=== PATIENT | female | born 1940 | race Caucasian/White ===

== ENCOUNTER → 2018-02-16 15:18 | Outpatient (CLI) | payer MEDICARE, OTHER, SELFPAY ==
[2018-02-16 17:44] LABS: AST(SGOT) 27 U/L (15-37); Alanine Aminotransfer ALT/SGPT 32 U/L (13-56); Albumin, Serum 3.9 g/dL (3.2-5.0); Alkaline Phosphatase 46 U/L (45-117); Bilirubin, Direct 0.11 mg/dL (0.00-0.30); Cholesterol 129 mg/dL (200); Globulin 3.4 g/dL (2.2-4.2); High Density Lipoprotein 42 mg/dL; Protein, Total 7.3 g/dL (6.4-8.2); Triglycerides 70 mg/dL; Very Low Density Lipoprotein 14 mg/dL (5-40)
== END ==
PROVIDERS: Family Provider Internal Medicine; PCP Internal Medicine; Visit Provider Internal Medicine Cardiovascular Disease
DX: E78.5 Hyperlipidemia, unspecified (principal); Z79.899 Other long term (current) drug therapy
CPT/HCPCS: 36415; 80061; 80076

== ENCOUNTER → 2018-07-10 11:14 | Outpatient (CLI) | payer MEDICARE, OTHER, SELFPAY ==
[2018-07-10 12:00] LABS: AST(SGOT) 27 U/L (15-37); Alanine Aminotransfer ALT/SGPT 32 U/L (13-56); Albumin, Serum 3.9 g/dL (3.2-5.0); Alkaline Phosphatase 56 U/L (45-117); Bilirubin, Direct 0.18 mg/dL (0.00-0.30); Cholesterol 133 mg/dL (200); Globulin 3.7 g/dL (2.2-4.2); High Density Lipoprotein 45 mg/dL; Protein, Total 7.6 g/dL (6.4-8.2); Triglycerides 76 mg/dL; Very Low Density Lipoprotein 15 mg/dL (5-40)
--- OUTSIDE RECORDS SUMMARY | 2018-08-22 03:05 | XMS RPT_ITS ---
:1940 Author Organization OHIP Care Team Providers Name Role Phone JUAN J CARCAMO Referring Unavailable RACHAEL NUÑEZ (CHRISTIAN SCIENCE PRACTITIONER) Attending Unavailable JUAN J CARCAMO Attending Unavailable JUAN J CARCAMO Referring Unavailable BAMBI, CADY (CHRISTIAN SCIENCE PRACTITIONER) Referring Unavailable KRUPA MCCARTY (PA) Attending Unavailable KRUPA MCCARTY (PA) Referring Unavailable JUAN J CARCAMO Referring Unavailable JUAN J CARCAMO Attending Unavailable JUAN J CARCAMO H Referring Unavailable JUAN J CARCAMO H Referring Unavailable Christiano, Martin Attending Unavailable Juan J Carcamo Referring Unavailable Juan J Carcamo Primary Care Unavailable Christiano, Martin Attending Unavailable Christiano, Winfield Referring Unavailable CarcamoJuan J ivory Primary Care Unavailable Christiano, Martin Attending Unavailable Christiano, Winfield Referring Unavailable Juan J Carcamo Primary Care Unavailable Christiano, Martin Attending Unavailable Juan J Carcamo Referring Unavailable PROBLEMS PROBLEMS DATE TYPE CONDITION / CODE ATTENDING STATUS SOURCE Unknown I10 - Essential (primary) Christiano, Martin Active [facility] hypertension / Community I10(ICD-10) Hospital Repository Unknown E78.5 - Hyperlipidemia, Christiano, Martin Active [facility] unspecified / Community E78.5(ICD-10) Hospital Repository Unknown Z95.5 - Presence of Christiano, Winfield Active [facility] 8 coronary angioplasty Community implant and graft / Hospital Z95.5(ICD-10) Repository Active Encounter for screening [place] [address] mammogram for malignant Clinic Main neoplasm of breast / [place] Z12.31(ICD-10) Repository Unknown 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, Winfield Active [facility] 8 heart disease of [place] Community coronary artery without Hospital angina pectoris / Repository I25.10(ICD-10) Unknown E78.00 - Pure Christiano, Winfield Active [facility] 8 hypercholesterolemia, Community unspecified / Hospital E78.00(ICD-10) Repository Unknown E78.0 - Pure Christiano, Martin Active [facility] hypercholesterolemia / Community E78.0(ICD-10) Hospital Repository Active Unknown / UNK(Unknown) LUL, [facility] 8 KRUPA (PA) [facility] Main [place] Repository Active Dysuria / R30.0(ICD-10) Active [address] Main [place] Repository Active Deficiency of other Active [facility] specified [facility] group Clinic Main vitamins / E53.8(ICD-10) [place] Repository Active Essential (primary) Active [facility] hypertension / Clinic Main I10(ICD-10) [place] Repository Active Vitamin D deficiency, NA Active [facility] 8 unspecified / Clinic Main E55.9(ICD-10) [place] Repository Active Other alf (current) [facility] 8 drug therapy / Clinic Main Z79.899(ICD-10) [place] Repository PROCEDURES PROCEDURES No Procedure Records FoundRESULTS RESULTS CARDIOLOGY VISIT Observed: 07/12/2018 Status: F Source: [place] REPORT 1:40 PM [facility] HOSPITAL REPOSITORY [facility] [address] [place] [address] OFFICE VISIT Date of Service: 07/12/18 MR#: [id number] Acct: [id number] Name: BREANNA PHELPS Rep #: [id number] : 1940 Provider: Martin Alvarado MD Age/Sex: 77/F Location: [facility] Status: Signed HPI HPI Chief Complaint: Follow-up visit Details: BREANNA PHELPS, is a 77 F who presents to the office today for a follow-up visit. She is a lady with a history of non-ST elevation myocardial infarction in 2011. 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 She has been doing well since denying any chest pain or shortness of breath or paroxysmal nocturnal dyspnea or pedal edema she occasionally has some palpitations. She has had no presyncope or syncope. She has been compliant with all her other medications. Her physical exam today demonstrates clear lung cespedes regular rate and rhythm and no evidence of pedal edema. Intake Vital Signs07/12/18 Height 5 ft 3 in 07/12/18 Weight: 180 lb 07/12/18 Body Mass Index (BMI) 31.8 07/12/18 Blood Pressure 128/82 H 07/12/18 Blood Pressure Location Lt brachial Intake Visit Reasons: 1 Y FU [place] Folder Required: No Accompanied by: Is patient in pain?: No Allergies No Known Allergies Allergy (Unverified 07/12/18 13:18) Medications clopidogrel 75 mg tablet 75 mg PO QDAY #90 tab 02/09/18 [Rx Confirmed 07/12/18] alendronate 70 mg tablet 70 mg PO QWEEK 04/25/18 [History Confirmed 07/12/18] aspirin 81 mg tablet,delayed release 81 mg PO DAILY 04/25/18 [History Confirmed 07/12/18] atorvastatin 40 mg tablet 40 mg PO QHS #90 tab 04/25/18 [Rx Confirmed 07/12/18] cholecalciferol (vitamin D3) 50,000 unit capsule 50,000 unit PO QWEEK 04/25/18 [History Confirmed 07/12/18] oxybutynin chloride ER 5 mg tablet,extended release 24 hr 5 mg PO DAILY 04/25/18 [History Confirmed 07/12/18] metoprolol succinate ER 50 mg tablet,extended release 24 hr 50 mg PO DAILY #90 tab 07/07/18 [Rx Confirmed 07/12/18] [facility] Medical History Essential (primary) hypertension (Chronic) Hyperlipidemia (Chronic) Surgical History History of coronary artery stent placement (Resolved) Family History Mother CAD (coronary artery disease) Myocardial infarction Brother CAD (coronary artery disease) Myocardial infarction Brother Cancer Sister Heart disease Social History Smoking Status: Never smoker ROS Const Const: Negative for fatigue, weakness, night sweats, excessive sweating, frequent falls, headache(s) or daytime sleepiness Eyes Eyes: Negative for loss of peripheral vision, transient loss of vision, blind spots, double vision or blurry vision ENT ENT: Negative for headache(s), dizziness, balance problems, Nosebleed/epistaxis, tongue swelling or lip swelling Cardio Chest Pain: No Palpitations: No Edema: None Muscle aches with walking: None Resp Respiratory: Negative for SOB at rest, SOB orthopnea\SOB lying down, Cough, paroxysmal nocturnal dyspnea or SOB with activity GI GI: Negative nausea, vomiting, heartburn, black,tarry stools or bright, red blood in stools : Negative for hematuria Musc Musc: Negative for balance problems, muscle aches/ myalgia, muscle weakness or joint pain Skin Skin: Negative non-healing lesions, unusual bruising or rash Neuro Neuro: Negative for weakness, frequent falls, headache(s), double vision, dizziness, lightheadedness, orthostatic symptoms, blurry vision or lack of coordination Lazaro Hematologic/Lymphatic: Negative for easy bruising or easy bleeding Endo Endo: Negative for fatigue, excessive sweating, cold intolerance, heat intolerance, increased thirst/drinking or hair loss Psych Psych: Negative for anxiety or depression Allergy Allergy/Immunology: Negative for throat swelling, Negative for tongue swelling, Negative for hives, Negative for rash, Negative for lip swelling Cardiology Exam Const Appearance: cooperative, healthy appearing, well developed, well groomed and no acute distress Nutritional Appearance: well nourished and average body habitus Orientation: alert, awake and oriented x3 Head Head: normal to inspection, normocephalic and atraumatic Ears: hearing grossly normal bilaterally and external ears normal Nose: external nose normal, nasal mucous membranes and turbinates normal, nares normal, septum normal, no nasal discharge Face and Sinus: face symmetric Mouth: oral mucosae normal, tongue normal, oropharynx normal and moist mucous membranes Teeth and gingiva: dentition normal Throat: posterior oropharynx normal, tonsils normal and uvula midline Eyes General: appearance normal, both eyes and all related structures Eyelids: eyelids normal Conjunctivae: conjunctivae normal Pupils: PERRL, normal by confrontation and accommodation normal EOM: EOM intact bilaterally Neck Neck: normal visual inspection, trachea midline and no JVD JVD: +5 Carotids: normal carotid upstroke and bounding pulses Chest Chest inspection: normal inspection of the chest, symmetric chest movement and normal respiratory effort Auscultation: Bilateral: Clear to Auscultation Cardio Palpation: normal PMI Rate: regular rate Rhythm: regular rhythm Heart sounds: S1 normal, S2 normal and normal, physiologic split S2; negative rub, gallop or murmur GI GI: normal to inspection, soft, no hepatosplenomegaly and bowel sounds present Neuro General: alert, awake, oriented x3, no focal sensory deficit, gait normal and moves all extremities Skin Skin: no rashes or lesions noted Extremities Pulses: Normal: Right Femoral Pulse, Left Femoral Pulse, Right Dorsalis Pedis Pulse, Left Dorsalis Pedis Pulse, Right Posterior Tibial Pulse, Left Posterior Tibial Pulse, Right Radial Pulse, Left Radial Pulse Lower Extremity Edema: None: Bilateral Musculoskel Musculoskeletal: No joint tenderness Psych Psychological: normal affect Assessment AND Plan 1. History of coronary artery stent placement Z95.5 11/22/11 [facility] and PTCA and stenting of mid LAD Plan She overall appears to be doing quite well. I did suggest to her that perhaps a stress test would be an ideal way to evaluate her left anterior descending artery however at this time she wants to continue to observing it medically. I do not have any issues or concerns about the above. 2. Essential (primary) hypertension I10 Plan Her blood pressure appears to be under excellent control at this particular time. We will continue observing her closely. 3. Hyperlipidemia E78.5 Plan She does have a history of hyperlipidemia and her most recent lipid profile demonstrates a total cholesterol 133, LDL of 73, and HDL of 45. Thank you for allowing me to participate in the care of your patient. 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) Coding Level of Care Code Off vis,est,level 3 Diagnoses History of coronary artery stent placement Z95.5 Essential (primary) hypertension I10 Hyperlipidemia E78.5 Coding Level of Care Code Off vis,est,level 3 Diagnoses History of coronary artery stent placement Z95.5 Essential (primary) hypertension I10 Hyperlipidemia E78.5 07/12/18 1340 <Electronically signed by Martin Alvarado MD> Date Martin Alvarado MD Cosigner Signature: Date (if applicable) CC: Juan J Carcamo MD LIVER PROFILE Collected: 07/10/2018 Status: F Source: [place] 11:29 AM [facility] [place] TYPE CODE TESTS RESULT OUT OF RANGE REFERENCE UNITS LAB L501.1500 6.4-8.2 g/dL Normal T PROT 7.6 LAB L501.1800 3.2-5.0 g/dL Normal ALB 3.9 LAB L501.1950 2.2-4.2 g/dL Normal GLOB 3.7 LAB L501.4100 15-37 U/L Normal AST 27 LAB L501.4305 45-117 U/L Normal ALK P 56 LAB L501.4405 13-56 U/L Normal ALT 32 LAB L501.4600 0.20-1.00 mg/dL Normal T BILI 0.70 LAB L501.4700 0.00-0.30 mg/dL Normal D BILI 0.18 Performed By: #### L500.3400, L500.4100 #### [facility] [address] [place], [address] LIPID PROFILE Collected: 07/10/2018 Status: F Source: [place] 11:29 AM [facility] [place] TYPE CODE TESTS RESULT OUT OF RANGE REFERENCE UNITS LAB L501.4900 200 mg/dL Normal CHOL 133 Result Comment: <200 mg/dL Desirable 200-240 mg/dL Borderline >240 mg/dL High Risk LAB L501.5000 mg/dL Normal TRIG 76 Result Comment: The drugs N-Acetylcysteine and Metamizole may falsely depress this assay. Serum Triglycerides Reference Interval Normal <150 mg/dL Borderline high 150 - 199 mg/dL High 200 - 499 mg/dL Very High > or = 500 mg/dL LAB L501.6400 mg/dL Normal HDL 45 Result Comment: The drugs N-Acetylcysteine and Metamizole may falsely depress this assay. Reference Range HDL <40 mg/dL Low HDL Cholesterol HDL >or= 60 mg/dL High HDL Cholesterol LAB L501.6500 0-130 mg/dL Normal LDL 73 LAB L501.6600 5-40 mg/dL Normal VLDL 15 Performed By: #### L500.3400, L500.4100 #### [facility] [address] [place], [address] LIVER PROFILE Collected: 02/16/2018 Status: F Source: [place] 3:59 PM [facility] [place] TYPE CODE TESTS RESULT OUT OF RANGE REFERENCE UNITS LAB L501.1500 6.4-8.2 g/dL Normal T PROT 7.3 LAB L501.1800 3.2-5.0 g/dL Normal ALB 3.9 LAB L501.1950 2.2-4.2 g/dL Normal GLOB 3.4 LAB L501.4100 15-37 U/L Normal AST 27 LAB L501.4305 45-117 U/L Normal ALK P 46 LAB L501.4405 13-56 U/L Normal ALT 32 LAB L501.4600 0.20-1.00 mg/dL Normal T BILI 0.60 LAB L501.4700 0.00-0.30 mg/dL Normal D BILI 0.11 Performed By: #### L500.3400, L500.4100 #### [facility] [address] [place], [address] LIPID PROFILE Collected: 02/16/2018 Status: F Source: [place] 3:59 PM [facility] [place] TYPE CODE TESTS RESULT OUT OF RANGE REFERENCE UNITS LAB L501.4900 200 mg/dL Normal CHOL 129 Result Comment: <200 mg/dL Desirable 200-240 mg/dL Borderline >240 mg/dL High Risk LAB L501.5000 mg/dL Normal TRIG 70 Result Comment: The drugs N-Acetylcysteine and Metamizole may falsely depress this assay. Serum Triglycerides Reference Interval Normal <150 mg/dL Borderline high 150 - 199 mg/dL High 200 - 499 mg/dL Very High > or = 500 mg/dL LAB L501.6400 mg/dL Normal HDL 42 Result Comment: The drugs N-Acetylcysteine and Metamizole may falsely depress this assay. Reference Range HDL <40 mg/dL Low HDL Cholesterol HDL >or= 60 mg/dL High HDL Cholesterol LAB L501.6500 0-130 mg/dL Normal LDL 73 LAB L501.6600 5-40 mg/dL Normal VLDL 14 Performed By: #### L500.3400, L500.4100 #### [facility] [address] [place], [address] CNCO Observed: 02/16/2018 Status: COMPLETED Source: [place] 1:50 PM [facility] REPOSITORY HNO ID: [id number] Author: Mammography Coordinator Service: (none) Author Type: Physician Type: Letter Filed: 02/19/2018 11:33 PM Note Text: February 16, 2018 PID: [id number] Breanna Phelps [address] [place] [address] Dear Ms. Phelps, We are pleased to inform you that the results of your recent breast imaging exam on 02/16/2018 are normal. Early detection of cancer is very important. We also understand recommendations regarding breast cancer screening are controversial. Please discuss with your primary care provider which strategy is best for you and whether a mammogram is right for you. Your imaging studies and report will be kept on file at [facility] as part of your permanent medical record and are available for your continuing care. Thank you for allowing us to help in meeting your health care needs. Sincerely, Dr. Leslie Interpreting Radiologist [facility] (Normal over 40) [facility] SCREENING Observed: 02/16/2018 Status: F Source: [place] 1:43 PM [facility] [place] REPOSITORY * * *Final Report* * * DATE OF EXAM: Feb 16 2018 1:43PM [facility] 0581 - [facility] SCREENING / PROCEDURE REASON: Encounter for screening mammogram for malignant neoplasm of breast * * * * Physician Interpretation * * * * RESULT: #[id number] - [facility] SCREENING BILATERAL DIGITAL SCREENING MAMMOGRAM WITH CAD: 02/16/2018 HISTORY: Encounter For Screening Mammogram For Malignant Neoplasm Of Breast /priors available for comparison. RESULT: TECHNIQUE: The study was acquired using full field digital technology and interpreted from soft copy. Current study was also evaluated with a Computer Aided Detection (CAD). Comparison is made to exams dated: 02/06/2017 mammogram, 02/04/2016 mammogram, and 02/02/2015 mammogram - [facility]. There are scattered fibroglandular elements in both breasts. No significant masses, calcifications, or other findings are seen in either breast. There has been no significant interval change. IMPRESSION: NEGATIVE There is no mammographic evidence of malignancy. A 1 year screening mammogram is recommended. The exam was reviewed by a staff physician. Aiyana Jose M.D., mc, jd/elizabeth:02/16/2018 13:50:24 Adult Ministries Director: Leidy ABREU)(Conner), [facility] letter sent: Normal over 40 Mammogram BI-RADS: 1 Negative Community Service Officer: Elizabeth Transcribe Date/Time: Feb 16 2018 1:22P Dictated by: ULISSES JOSE MD This examination was interpreted and the report reviewed and electronically signed by: AIYANA MCFADDEN MD on Feb 16 2018 1:50PM EST [id number] PROCEDURE Observed: 02/16/2018 Status: COMPLETED Source: [place] 1:21 PM [facility] REPOSITORY O ID: [id number] Author: Lena Mata (Rt) Service: (none) Author Type: Spectacle Truer Type: Procedures Filed: 02/16/2018 1:22 PM Note Text: Radiology Service Progress Note PATIENT NAME: Breanna Phelps DATE OF SERVICE: February 16, 2018 TIME: 1:21 PM PATIENT IDENTITY VERIFICATION COMPLETED USING TWO (2) METHODS: Patient confirmed name verbally and Date of . PATIENT GENDER DATA: Female. status: : No status: NO. PATIENT RELEVANT IMPLANT DATA REVIEWED: Not Applicable RADIOLOGY DEPARTMENT: [facility] IV DATA: Not applicable SIGNED BY: RT Esperanza February 16, 2018 1:21 PM PROGRESS Observed: 02/07/2018 Status: COMPLETED Source: [place] 4:29 PM [facility] [place] REPOSITORY HNO ID: [id number] Author: Juan J Carcamo Service: (none) Author Type: Physician Type: Progress Notes Filed: 02/07/2018 4:35 PM Note Text: This note was created using HealthTeacher / GoNoodle. Subjective Breanna Phelps is a 77 year old female here for follow up. She was doing okay. Urge incontinence was stable. Medication was tolerated. Her hypertension was controlled. Osteoporosis was treated as reviewed. She stopped medications for acid reflux with mild increase in symptoms and atypical chest pains. 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 Review of Systems Constitutional: Negative. Respiratory: Negative. Cardiovascular: Positive for chest pain. Negative for palpitations and leg swelling. Atypical CP. Gastrointestinal: Negative. Genitourinary: Positive for urgency. ACTIVE PROBLEM LIST Lumbago Other Hyperlipidemia Essential Hypertension, Benign Asthma Osteoporosis Osteoarthrosis Involving Lower Leg Vitamin D Deficiency Cad (Coronary Artery Disease) B12 Deficiency Gastroesophageal Reflux Disease Without Esophagitis Small Fiber Neuropathy (Hcc) Primary Generalized (Osteo)arthritis Chronic Nonallergic Rhinitis Urge Incontinence Dry Mouth Dizziness and Giddiness Obesity, Class I, Bmi 30-34.9 Current Outpatient Prescriptions: Multivitamin capsule Take 1 capsule by mouth once daily. alendronate (FOSAMAX) 70 mg tablet Take 1 tablet by mouth once each week. Take with a full glass of water, on an empty stomach; do NOT lie down for 30minutes. oxybutynin (DITROPAN) 5 mg tablet Take 1 tablet by mouth four times daily. Cholecalciferol, Vitamin D3, 5,000 unit cap Take 1 capsule by mouth once daily. atorvastatin (LIPITOR) 80 mg tablet Take 0.5 tablets by mouth daily at bedtime. For cholesterol. mometasone (ELOCON) 0.1 % cream Apply 1 application to affected area once daily as needed (arms and legs). albuterol HFA (VENTOLIN HFA) 90 mcg/actuation inhaler Inhale 2 Puffs as instructed every 4 hours as needed for Wheezing/Shortness of Breath. metoprolol succinate XL, long acting, (TOPROL XL) 100 mg ORAL Tb24 Take 1 tablet by mouth once daily. clopidogrel 75 mg ORAL tablet Take 1 tablet by mouth once daily. Aspirin 81 mg ORAL Tab Take 1 tablet by mouth once daily. Take with food. nitroglycerin sublingual 0.4 mg SUBLINGUAL SL tablet Dissolve 1 tablet under the tongue every 5 minutes as needed for Chest Pain. No current facility-administered medications for this visit. Objective BP 122/76 (BP Site: Right Arm, BP Position: Sitting, BP Cuff Size: Regular Adult) Pulse 64 Temp 36.7 ?C (98.1 ?F) (Left Tympanic) Resp 12 Wt 77.1 kg (170 lb) BMI 31.60 kg/m? Physical Exam Cardiovascular: Normal rate, regular rhythm and normal heart sounds. Exam reveals no gallop. No murmur heard. Pulmonary/Chest: Breath sounds normal. She has no wheezes. She has no rales. Musculoskeletal: She exhibits no edema. Neurological: She is alert. Ambulatory with cane. Assessment and Plan 1. Essential hypertension, benign - ICD9: 401.1, ICD10: I10 (primary diagnosis) - good control 2. Osteoporosis, unspecified osteoporosis type, unspecified pathological fracture presence - ICD9: 733.00, ICD10: M81.0 - continue tx with alendronate (Fosamax) till 2020. - Reviewed the need for Calcium and Vitamin D supplements and weight bearing exercise as tolerated 3. Gastroesophageal reflux disease without esophagitis - ICD9: 530.81, ICD10: K21.9 Controlled off medication. 4. Urge incontinence - ICD9: 788.31, ICD10: N39.41 Stable. 5. Encounter for screening mammogram for breast cancer - ICD9: V76.12, ICD10: Z12.31 - [facility] SCREENING 6. Obesity, Class I, BMI 30-34.9 - ICD9: 278.00, ICD10: E66.9 Weight loss. Juan J Carcamo MD CNOV Observed: 02/07/2018 Status: COMPLETED Source: [place] 3:40 PM [facility] REPOSITORY Office Visit (INTMWS) BREANNA PHELPS ([id number]) 1940 F Date Time Provider Department 02/07/18 3:40 PM JUAN J CARCAMO INTFREDYD During your visit today, we recorded the following information about you: Temperature Pulse Respiration Blood pressure 98.1 degrees 64/minute 12/minute 122/76 Weight 77.1 kg Juan J Carcamo MD 02/07/2018 4:25 PM Signed Recombinant shingles vaccine (Shingrix) is recommended; 2 doses 2-6 months apart. Please read information, check with your insurance, and call to schedule vaccination. You may also be directed to your local pharmacy. Juan J Carcamo MD 02/07/2018 4:35 PM Signed This note was created using HealthTeacher / GoNoodle. Subjective Breanna Phelps is a 77 year old female here for follow up. She was doing okay. Urge incontinence was stable. Medication was tolerated. Her hypertension was controlled. Osteoporosis was treated as reviewed. She stopped medications for acid reflux with mild increase in symptoms and atypical chest pains. 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 Review of Systems Constitutional: Negative. Respiratory: Negative. Cardiovascular: Positive for chest pain. Negative for palpitations and leg swelling. Atypical CP. Gastrointestinal: Negative. Genitourinary: Positive for urgency. ACTIVE PROBLEM LIST Lumbago Other Hyperlipidemia Essential Hypertension, Benign Asthma Osteoporosis Osteoarthrosis Involving Lower Leg Vitamin D Deficiency Cad (Coronary Artery Disease) B12 Deficiency Gastroesophageal Reflux Disease Without Esophagitis Small Fiber Neuropathy (Hcc) Primary Generalized (Osteo)arthritis Chronic Nonallergic Rhinitis Urge Incontinence Dry Mouth Dizziness and Giddiness Obesity, Class I, Bmi 30-34.9 Current Outpatient Prescriptions: Multivitamin capsule Take 1 capsule by mouth once daily. alendronate (FOSAMAX) 70 mg tablet Take 1 tablet by mouth once each week. Take with a full glass of water, on an empty stomach; do NOT lie down for 30minutes. oxybutynin (DITROPAN) 5 mg tablet Take 1 tablet by mouth four times daily. Cholecalciferol, Vitamin D3, 5,000 unit cap Take 1 capsule by mouth once daily. atorvastatin (LIPITOR) 80 mg tablet Take 0.5 tablets by mouth daily at bedtime. For cholesterol. mometasone (ELOCON) 0.1 % cream Apply 1 application to affected area once daily as needed (arms and legs). albuterol HFA (VENTOLIN HFA) 90 mcg/actuation inhaler Inhale 2 Puffs as instructed every 4 hours as needed for Wheezing/Shortness of Breath. metoprolol succinate XL, long acting, (TOPROL XL) 100 mg ORAL Tb24 Take 1 tablet by mouth once daily. clopidogrel 75 mg ORAL tablet Take 1 tablet by mouth once daily. Aspirin 81 mg ORAL Tab Take 1 tablet by mouth once daily. Take with food. nitroglycerin sublingual 0.4 mg SUBLINGUAL SL tablet Dissolve 1 tablet under the tongue every 5 minutes as needed for Chest Pain. No current facility-administered medications for this visit. Objective BP 122/76 (BP Site: Right Arm, BP Position: Sitting, BP Cuff Size: Regular Adult) Pulse 64 Temp 36.7 ?C (98.1 ?F) (Left Tympanic) Resp 12 Wt 77.1 kg (170 lb) BMI 31.60 kg/m? Physical Exam Cardiovascular: Normal rate, regular rhythm and normal heart sounds. Exam reveals no gallop. No murmur heard. Pulmonary/Chest: Breath sounds normal. She has no wheezes. She has no rales. Musculoskeletal: She exhibits no edema. Neurological: She is alert. Ambulatory with cane. Assessment and Plan 1. Essential hypertension, benign - ICD9: 401.1, ICD10: I10 (primary diagnosis) - good control 2. Osteoporosis, unspecified osteoporosis type, unspecified pathological fracture presence - ICD9: 733.00, ICD10: M81.0 - continue tx with alendronate (Fosamax) till 2020. - Reviewed the need for Calcium and Vitamin D supplements and weight bearing exercise as tolerated 3. Gastroesophageal reflux disease without esophagitis - ICD9: 530.81, ICD10: K21.9 Controlled off medication. 4. Urge incontinence - ICD9: 788.31, ICD10: N39.41 Stable. 5. Encounter for screening mammogram for breast cancer - ICD9: V76.12, ICD10: Z12.31 - [facility] SCREENING 6. Obesity, Class I, BMI 30-34.9 - ICD9: 278.00, ICD10: E66.9 Weight loss. Juan J Carcamo MD Referring Provider: JUAN J CARCAMO [[id number]] Allergies As of Date: 02/07/2018 (No Known Allergies) Date Reviewed: 02/07/2018 Reviewed by: Monie Ugalde LPN - Fully Assessed Reason for Visit: Medication Follow-up [270] Primary Visit Diagnosis:Essential hypertension, benign [I10] Other Visit Diagnoses:Osteoporosis, unspecified osteoporosis type, unspecified pathological fracture presence [M81.0] Gastroesophageal reflux disease without esophagitis [K21.9] Urge incontinence [N39.41] Encounter for screening mammogram for breast cancer [Z12.31] Obesity, Class I, BMI 30-34.9 [E66.9] Order(s):[facility] SCREENING [[id number]] Order #: [id number] FUTURE Prescriptions as of 02/07/2018 Sig: MULTIVITAMIN CAPSULE Take 1 capsule by mouth once * ALENDRONATE 70 MG TABLET Take 1 tablet by mouth once e* OXYBUTYNIN CHLORIDE 5 MG TABL* Take 1 tablet by mouth four t* CHOLECALCIFEROL (VITAMIN D3) * Take 1 capsule by mouth once * ATORVASTATIN 80 MG TABLET Take 0.5 tablets by mouth robby* MOMETASONE 0.1 % TOPICAL CREAM Apply 1 application to affect* ALBUTEROL SULFATE HFA 90 MCG/* Inhale 2 Puffs as instructed * METOPROLOL SUCCINATE ER 100 M* Take 1 tablet by mouth once d* CLOPIDOGREL 75 MG TABLET Take 1 tablet by mouth once d* ASPIRIN 81 MG TABLET Take 1 tablet by mouth once d* NITROGLYCERIN 0.4 MG SUBLINGU* Dissolve 1 tablet under the t* Problem List As Of Date 02/07/2018 Noted Resolved LUMBAGO [M54.5] Impaired fasting glucose [R73.01] 09/29/2015 Obesity, unspecified [E66.9] 02/07/2018 Other hyperlipidemia [E78.4] BENIGN HYPERTENSION [I10] Asthma [J45.909] INVALID FOR* Osteoporosis [M81.0] INVALID FOR* More... SPRAIN OF NECK [S13.9XXA] INVALID FOR*06/24/2008 SPRAIN SHOULDER/ARM NOS [S43.409A, S46.919A] INVALID FOR*06/24/2008 Sprain and strain of unspecified site of knee a*INVALID FOR*09/14/2012 CONTUSION NOS [T14.8XXA] INVALID FOR*06/24/2008 Osteoarthrosis involving lower leg [M17.10] INVALID FOR* Derangement of meniscus, not elsewhere classifi*INVALID FOR*09/14/2012 Vitamin D deficiency [E55.9] INVALID FOR* Skin infection [L08.9] INVALID FOR*09/14/2012 Vertigo [R42] INVALID FOR*09/14/2012 CAD (coronary artery disease) [I25.10] INVALID FOR* More... B12 deficiency [E53.8] INVALID FOR* Special screening for malignant neoplasms, colo*INVALID FOR*09/14/2012 Diverticulosis of colon (without mention of hem*INVALID FOR*09/14/2012 Gastroesophageal reflux disease without esophag*INVALID FOR* Diaphragmatic hernia without mention of obstruc*INVALID FOR*09/14/2012 Small fiber neuropathy [G62.9] INVALID FOR* YAMILETH (obstructive sleep apnea) [G47.33] INVALID FOR*03/17/2014 More... Pain in limb [M79.609] INVALID FOR*09/14/2012 Cervical spondylosis with radiculopathy [M47.22]INVALID FOR*09/29/2015 Primary generalized (osteo)arthritis [M15.0] INVALID FOR* More... Hypersomnia [G47.10] INVALID FOR*09/29/2015 More... Chronic nonallergic rhinitis [J31.0] INVALID FOR* Urge incontinence [N39.41] INVALID FOR* Dry mouth [R68.2] INVALID FOR* Dizziness and giddiness [R42] INVALID FOR* Obesity, Class I, BMI 30-34.9 [E66.9] INVALID FOR* Other instructions from your clinician: Recombinant shingles vaccine (Shingrix) is recommended; 2 doses 2-6 months apart. Please read information, check with your insurance, and call to schedule vaccination. You may also be directed to your local pharmacy. Medications Discontinued During This Encounter Ranitidine HCl 150 mg capsule 60 c* 12 06/17/2016 02/07/2018 Route: ORAL Sig: Take 1 capsule by mouth twice daily as needed for GI Upset. Patient not taking: Reported on 02/07/2018 Disc: Discontinued by Patient sod byxpr-tpmyoa-ajxbue bottle (MEG* 0 09/29/2015 02/07/2018 Class: OTC Sig: Use sinus irrigation as needed. Patient not taking: Reported on 02/07/2018 Disc: Reason for discontinue is not on file. Disposition: Return in about 7 months (around 09/09/2018). Follow-up and Disposition History Recorded Encounter Status:Closed by JUAN J CARCAMO MD on 02/07/18 HEMOGLOBIN A1C Collected: 02/06/2018 Status: F Source: [place] 12:28 PM [facility] REPOSITORY TYPE CODE TESTS RESULT OUT OF REFERENCE UNITS RANGE LAB HGBA1C 4.3-5.6 % Hemoglobin A1c 5.3 LAB HBA0 mg/dL Est. Average Glucose 105 Result Comment: eAG: (Estimated average glucose) is a calculated value from HgbA1c and is claims representative of the average blood glucose level in the last 2-3 month period. Performed By: #### HBA1C #### [facility] [address] [place], [place] [address] CARDIOLOGY VISIT Observed: 01/25/2018 Status: F Source: [place] RE[place] 8:55 PM [facility] [address] [place] [address] OFFICE VISIT Date of Service: 01/18/18 MR#: [id number] Acct: [id number] Name: BREANNA PHELPS Rep #: [id number] : 1940 Provider: Martin Alvarado MD Age/Sex: 77/F Location: [facility] Status: Signed HPI HPI Chief Complaint: Follow-up visit Details: BREANNA PHELPS, is a 77 F who presents to the office today for a follow-up visit. She is a lady with a history of known coronary artery disease status post non-ST elevation myocardial infarction in 2011 heart catheterization at that time demonstrated an 80% stenosis of the left anterior descending artery for which she had angioplastied and stented. She also has a history of hypertension and hyperlipidemia. She has been compliant with her medications she does have mild shortness of breath with activity especially when she is ambulating uphill. She continues to use a cane. She has been compliant with her medications she has had no neck arm or jaw discomfort suggest angina no dizziness or diaphoresis no near syncope or syncope. Her physical exam today demonstrates clear lung cespedes regular rate and rhythm and no pedal edema her blood pressure is under excellent control. Intake Intake Visit Reasons: 6 M FU (we moved from -29) [facility] Social History Smoking Status: Never smoker ROS Const Const: Negative for fatigue, weakness, body ache, fever(s), headache(s), chills, frequent falls, night sweats, daytime sleepiness, difficulty sleeping, excessive sweating, weight gain, weight loss, increased appetite, poor appetite, anorexia or other Eyes Eyes: Negative for blind spots, loss of peripheral vision, transient loss of vision, blurry vision, change in vision, double vision, floaters, tunnel vision or other ENT ENT: Negative for headache(s) Cardio Chest Pain: No Resp Respiratory: Positive for SOB with activity GI GI: Negative nausea, vomiting, heartburn, constipation, belching, bloating, cramping, vomiting blood/hematemesis, bright, red blood in stools, black,tarry stools, loose stools, Difficulty Swallowing or other Skin Skin: Negative redness, non-healing lesions, rash, unusual bruising, skin ulcer, wounds, jaundice or other Neuro Neuro: Negative for weakness, headache(s), frequent falls, blurry vision or double vision Endo Endo: Negative for fatigue or excessive sweating Allergy Allergy/Immunology: Negative for rash Cardiology Exam Const Appearance: cooperative, healthy appearing, well developed, well groomed and no acute distress Nutritional Appearance: well nourished and average body habitus Orientation: alert, awake and oriented x3 Head Head: normal to inspection, normocephalic and atraumatic Ears: hearing grossly normal bilaterally and external ears normal Nose: external nose normal, nasal mucous membranes and turbinates normal, nares normal, septum normal, no nasal discharge Face and Sinus: face symmetric Mouth: oral mucosae normal, tongue normal, oropharynx normal and moist mucous membranes Teeth and gingiva: dentition normal Throat: posterior oropharynx normal, tonsils normal and uvula midline Eyes General: appearance normal, both eyes and all related structures Eyelids: eyelids normal Conjunctivae: conjunctivae normal Pupils: PERRL, normal by confrontation and accommodation normal EOM: EOM intact bilaterally Neck Neck: normal visual inspection, trachea midline and no JVD JVD: +5 Carotids: normal carotid upstroke and bounding pulses Chest Chest inspection: normal inspection of the chest, symmetric chest movement and normal respiratory effort Auscultation: Bilateral: Clear to Auscultation Cardio Palpation: normal PMI Rate: regular rate Rhythm: regular rhythm Heart sounds: S1 normal, S2 normal and normal, physiologic split S2; negative rub, gallop or murmur GI GI: normal to inspection, soft, no hepatosplenomegaly and bowel sounds present Neuro General: alert, awake, oriented x3, no focal sensory deficit, gait normal and moves all extremities Skin Skin: no rashes or lesions noted Extremities Pulses: Normal: Right Femoral Pulse, Left Femoral Pulse, Right Dorsalis Pedis Pulse, Left Dorsalis Pedis Pulse, Right Posterior Tibial Pulse, Left Posterior Tibial Pulse, Right Radial Pulse, Left Radial Pulse Lower Extremity Edema: None: Bilateral Musculoskel Musculoskeletal: No joint tenderness Psych Psychological: normal affect Assessment AND Plan 1. Coronary artery disease involving [place] coronary artery of [place] heart without angina pectoris I25.10 Plan She appears to be stable with respect to her coronary artery disease she has not had any angina. Due to her gait we have not pursued any stress testing. I will have her recommend that we continue with aggressive risk factor modification and medical therapy. Her last stress test in 2013 did not demonstrate any evidence of ischemia. 2. Essential hypertension I10 Plan Her blood pressure continues to be under good control and will continue her on the same medications without making any changes. 3. Pure hypercholesterolemia E78.00; E78.0 Plan She does have a history of hyperlipidemia under good control. Her most recent lipid profile demonstrated total cholesterol 139, triglycerides of 65 HDL of 54 and LDL of 72. Liver function tests are within normal limits. Thank you for allowing me to participate in her care please not hesitate to contact me if any issues arise. Due to computer issues past medical history and medications were not entered contemporaneously. Plan Detail Follow Up 6 Months (mmm) Coding Level of Care Code Off vis,est,level 3 Diagnoses Coronary artery disease involving [place] coronary artery of [place] heart without angina pectoris I25.10 Coronary Disease-Associated Artery/Lesion type: [place] artery [place] vs. transplanted heart: [place] heart Associated angina: without angina Essential hypertension I10 Hypertension type: essential hypertension Pure hypercholesterolemia E78.00; E78.0 Hyperlipidemia type: pure hypercholesterolemia Coding Level of Care Code Off vis,est,level 3 Diagnoses Coronary artery disease involving [place] coronary artery of [place] heart without angina pectoris I25.10 Coronary Disease-Associated Artery/Lesion type: [place] artery [place] vs. transplanted heart: [place] heart Associated angina: without angina Essential hypertension I10 Hypertension type: essential hypertension Pure hypercholesterolemia E78.00; E78.0 Hyperlipidemia type: pure hypercholesterolemia 01/25/182054 <Electronically signed by Martin Alvarado MD> Date Martin Alvarado MD Cosigner Signature: Date (if applicable) CC: Juan J Carcamo MD CNPTOUTREACH Observed: 01/23/2018 Status: COMPLETED Source: [place] 12:00 AM [facility] REPOSITORY Patient Outreach (FAMPST) BREANNA PHELPS ([id number]) 1940 F Date Time Provider Department 01/23/18 JUAN J CARCAMO FAMPST During your visit today, we recorded the following information about you: Allergies As of Date: 01/23/2018 (No Known Allergies) Date Reviewed: 11/23/2017 Reviewed by: Solange Jennings Ma - Fully Assessed Visit Diagnosis:Medication management [Z79.899] Order(s):HGB A1C [[id number]] Order #: [id number] FUTURE Prescriptions as of 01/23/2018 Sig: ALENDRONATE 70 MG TABLET Take 1 tablet by mouth once e* OXYBUTYNIN CHLORIDE 5 MG TABL* Take 1 tablet by mouth four t* CHOLECALCIFEROL (VITAMIN D3) * Take 1 capsule by mouth once * ATORVASTATIN 80 MG TABLET Take 0.5 tablets by mouth robby* MOMETASONE 0.1 % TOPICAL CREAM Apply 1 application to affect* X RANITIDINE 150 MG CAPSULE Take 1 capsule by mouth twice* Patient not taking: Reported on 02/07/2018 ALBUTEROL SULFATE HFA 90 MCG/* Inhale 2 Puffs as instructed * X SODIUM CHLORIDE, SODIUM BICAR* Use sinus irrigation as neede* Patient not taking: Reported on 02/07/2018 METOPROLOL SUCCINATE ER 100 M* Take 1 tablet by mouth once d* CLOPIDOGREL 75 MG TABLET Take 1 tablet by mouth once d* ASPIRIN 81 MG TABLET Take 1 tablet by mouth once d* NITROGLYCERIN 0.4 MG SUBLINGU* Dissolve 1 tablet under the t* Problem List As Of Date 01/23/2018 Noted Resolved LUMBAGO [M54.5] Impaired fasting glucose [R73.01] 09/29/2015 OBESITY NOS [E66.9] Other hyperlipidemia [E78.49] BENIGN HYPERTENSION [I10] Asthma [J45.909] INVALID FOR* Osteoporosis [M81.0] INVALID FOR* More... SPRAIN OF NECK [S13.9XXA] INVALID FOR*06/24/2008 SPRAIN SHOULDER/ARM NOS [S43.409A, S46.919A] INVALID FOR*06/24/2008 Sprain and strain of unspecified site of knee a*INVALID FOR*09/14/2012 CONTUSION NOS [T14.8XXA] INVALID FOR*06/24/2008 Osteoarthrosis involving lower leg [M17.10] INVALID FOR* Derangement of meniscus, not elsewhere classifi*INVALID FOR*09/14/2012 Vitamin D deficiency [E55.9] INVALID FOR* Skin infection [L08.9] INVALID FOR*09/14/2012 Vertigo [R42] INVALID FOR*09/14/2012 CAD (coronary artery disease) [I25.10] INVALID FOR* More... B12 deficiency [E53.8] INVALID FOR* Special screening for malignant neoplasms, colo*INVALID FOR*09/14/2012 Diverticulosis of colon (without mention of hem*INVALID FOR*09/14/2012 Gastroesophageal reflux disease without esophag*INVALID FOR* Diaphragmatic hernia without mention of obstruc*INVALID FOR*09/14/2012 Small fiber neuropathy [G62.9] INVALID FOR* YAMILETH (obstructive sleep apnea) [G47.33] INVALID FOR*03/17/2014 More... Pain in limb [M79.609] INVALID FOR*09/14/2012 Cervical spondylosis with radiculopathy [M47.22]INVALID FOR*09/29/2015 Primary generalized (osteo)arthritis [M15.0] INVALID FOR* More... Hypersomnia [G47.10] INVALID FOR*09/29/2015 More... Chronic nonallergic rhinitis [J31.0] INVALID FOR* Urge incontinence [N39.41] INVALID FOR* Dry mouth [R68.2] INVALID FOR* Dizziness and giddiness [R42] INVALID FOR* Encounter Status:Closed by PATTI, PRODUSER on 05/25/18 PROGRESS Observed: 11/23/2017 Status: COMPLETED Source: [place] 1:09 PM [facility] [place] REPOSITORY HNO ID: [id number] Author: Krupa Mccarty (Pa) Service: (none) Author Type: Physician Caddy Packer Type: Progress Notes Filed: 11/23/2017 1:50 PM Note Text: [facility] [place] CC: Urge Incontinence Follow-up HPI: This is a 76 year old female, with a history of Urge Incontinence, and taking ditropan 5 mg three times per day And will consider sling if medication increase is not improving her symptoms LABS: Creatinine Date Value Ref Range Status 08/21/2017 0.65 0.58 - 0.96 mg/dL Final 02/06/2017 0.67 0.58 - 0.96 mg/dL Final 03/02/2016 0.73 0.70 - 1.40 mg/dL Final 09/23/2015 0.68 (L) 0.70 - 1.40 mg/dL Final ALLERGIES: ALLERGIES No Known Allergies MEDICATIONS: oxybutynin (DITROPAN) 5 mg tablet Take 1 tablet by mouth three times daily. Cholecalciferol, Vitamin D3, 5,000 unit cap Take 1 capsule by mouth once daily. alendronate (FOSAMAX) 70 mg tablet Take 1 tablet by mouth once each week. Take with a full glass of water, on an empty stomach; do NOT lie down for 30minutes. atorvastatin (LIPITOR) 80 mg tablet Take 0.5 tablets by mouth daily at bedtime. For cholesterol. mometasone (ELOCON) 0.1 % cream Apply 1 application to affected area once daily as needed (arms and legs). Ranitidine HCl 150 mg capsule Take 1 capsule by mouth twice daily as needed for GI Upset. albuterol HFA (VENTOLIN HFA) 90 mcg/actuation inhaler Inhale 2 Puffs as instructed every 4 hours as needed for Wheezing/Shortness of Breath. sod xzkvh-iqmogl-ujkpic bottle (NECartRescuerMED SINUS RINSE COMPLETE) pkdv Use sinus irrigation as needed. metoprolol succinate XL, long acting, (TOPROL XL) 100 mg ORAL Tb24 Take 1 tablet by mouth once daily. clopidogrel 75 mg ORAL tablet Take 1 tablet by mouth once daily. Aspirin 81 mg ORAL Tab Take 1 tablet by mouth once daily. Take with food. nitroglycerin sublingual 0.4 mg SUBLINGUAL SL tablet Dissolve 1 tablet under the tongue every 5 minutes as needed for Chest Pain. HISTORIES: FAMILY Hx: FAMILY HISTORY Problem Relation Age of Onset - heart attack [OTHER] Mother - TB [OTHER] Father - Diabetes Maternal Grandfather - Breast Cancer Sister - lung cancer [OTHER] Brother - Coronary Artery Disease Brother - Genitourinary () Brother hemodialysis - Stroke Sister IC aneurysm - Alzheimer's Disease Sister - Psoriasis Sister PAST MEDICAL HISTORY Diagnosis Date - Acid reflux - Adjustment disorder with depressed mood - Anemia - Asthma - CAD (coronary artery disease) 11/24/2011 - Cervical spondylosis with radiculopathy 05/14/2012 - CHOLECYSTITIS SEE ALSO GALLBLADDER ACUTE WITH CALCULUS( Without obstruction) 12/11/2008 - DERANGEMENT MENISCUS NEC 03/25/2008 - Diaphragmatic hernia without mention of obstruction or gangrene - Disorder of bone and cartilage, unspecified 06/06/2007 Osteopenia - Diverticulosis of colon (without mention of hemorrhage) - Dry eyes, bilateral - Essential hypertension, benign - High cholesterol - Hypersomnia 03/17/2014 Dr. Worrell - Hypertension - Impaired fasting glucose - Lumbago - Miscarriage - Obesity, unspecified - YAMILETH (obstructive sleep apnea) 04/17/2012 - Other and unspecified hyperlipidemia - Rheumatic fever - Small fiber neuropathy (HCC) 04/03/2012 - Ulcer disease - Unspecified asthma(493.90) 11/24/2005 - Unspecified vitamin D deficiency 07/04/2008 - Urge incontinence 08/17/2016 - Vertigo 12/28/2010 - Vitamin B deficiency Social History Marital status: Spouse name: Bossman Neville Years of education: Number of children: 2 Occupational History Occupation Employer Comment [employer] Social History Main Topics Smoking status: Never Smoker Smokeless status: Never Used Alcohol use: No Drug use: No Sexual activity: Not Currently REVIEW OF SYSTEMS: General:No weight loss, malaise or fevers. Genitourinary: See HPI The remainder of the ROS was negative. PHYSICAL EXAMINATION: There were no vitals taken for this visit. General appearance: Well appearing, alert, in no acute distress, well-hydrated, well nourished., well-hydrated, well nourished IMPRESSION AND PLAN: > History of Urge Incontinence > increase ditropan to 4 time daily, if still having the urgency I recommend Having a consult for possible sling insertion with ACCOUNT ADVISOR or Female Urology > She admits she has a hard time remembering to take her medication several times per day but the cost of once a day Rx is too much ADARSH Mendoza, [place], JUSTIN RUIZ Observed: 11/23/2017 Status: COMPLETED Source: [place] 1:00 PM [facility] REPOSITORY Office Visit (UROLWS) BREANNA PHELPS ([id number]) 1940 F Date Time Provider Department 11/23/17 1:00 PM KRUPA MCCARTY) UROLWS During your visit today, we recorded the following information about you: Pulse Blood pressure Weight 72/minute 112/78 76.2 kg MARLEY Garcia 11/23/2017 1:50 PM Signed [facility] CC: ANDquot; Urge Incontinence Follow-upANDquot; HPI: This is a 76 year old female, with a history of Urge Incontinence, and taking ditropan 5 mg three times per day And will consider sling if medication increase is not improving her symptoms LABS: Creatinine Date Value Ref Range Status 08/21/2017 0.65 0.58 - 0.96 mg/dL Final 02/06/2017 0.67 0.58 - 0.96 mg/dL Final 03/02/2016 0.73 0.70 - 1.40 mg/dL Final 09/23/2015 0.68 (L) 0.70 - 1.40 mg/dL Final ALLERGIES: ALLERGIES No Known Allergies MEDICATIONS: oxybutynin (DITROPAN) 5 mg tablet Take 1 tablet by mouth three times daily. Cholecalciferol, Vitamin D3, 5,000 unit cap Take 1 capsule by mouth once daily. alendronate (FOSAMAX) 70 mg tablet Take 1 tablet by mouth once each week. Take with a full glass of water, on an empty stomach; do NOT lie down for 30minutes. atorvastatin (LIPITOR) 80 mg tablet Take 0.5 tablets by mouth daily at bedtime. For cholesterol. mometasone (ELOCON) 0.1 % cream Apply 1 application to affected area once daily as needed (arms and legs). Ranitidine HCl 150 mg capsule Take 1 capsule by mouth twice daily as needed for GI Upset. albuterol HFA (VENTOLIN HFA) 90 mcg/actuation inhaler Inhale 2 Puffs as instructed every 4 hours as needed for Wheezing/Shortness of Breath. sod pzlrr-xpnerr-uedlfk bottle (NEILMED SINUS RINSE COMPLETE) pkdv Use sinus irrigation as needed. metoprolol succinate XL, long acting, (TOPROL XL) 100 mg ORAL Tb24 Take 1 tablet by mouth once daily. clopidogrel 75 mg ORAL tablet Take 1 tablet by mouth once daily. Aspirin 81 mg ORAL Tab Take 1 tablet by mouth once daily. Take with food. nitroglycerin sublingual 0.4 mg SUBLINGUAL SL tablet Dissolve 1 tablet under the tongue every 5 minutes as needed for Chest Pain. HISTORIES: FAMILY Hx: FAMILY HISTORY Problem Relation Age of Onset - heart attack [OTHER] Mother - TB [OTHER] Father - Diabetes Maternal Grandfather - Breast Cancer Sister - lung cancer [OTHER] Brother - Coronary Artery Disease Brother - Genitourinary () Brother hemodialysis - Stroke Sister IC aneurysm - Alzheimer's Disease Sister - Psoriasis Sister PAST MEDICAL HISTORY Diagnosis Date - Acid reflux - Adjustment disorder with depressed mood - Anemia - Asthma - CAD (coronary artery disease) 11/24/2011 - Cervical spondylosis with radiculopathy 05/14/2012 - CHOLECYSTITIS SEE ALSO GALLBLADDER ACUTE WITH CALCULUS( Without obstruction) 12/11/2008 - DERANGEMENT MENISCUS NEC 03/25/2008 - Diaphragmatic hernia without mention of obstruction or gangrene - Disorder of bone and cartilage, unspecified 06/06/2007 Osteopenia - Diverticulosis of colon (without mention of hemorrhage) - Dry eyes, bilateral - Essential hypertension, benign - High cholesterol - Hypersomnia 03/17/2014 Dr. Worrell - Hypertension - Impaired fasting glucose - Lumbago - Miscarriage - Obesity, unspecified - YAMILETH (obstructive sleep apnea) 04/17/2012 - Other and unspecified hyperlipidemia - Rheumatic fever - Small fiber neuropathy (HCC) 04/03/2012 - Ulcer disease - Unspecified asthma(493.90) 11/24/2005 - Unspecified vitamin D deficiency 07/04/2008 - Urge incontinence 08/17/2016 - Vertigo 12/28/2010 - Vitamin B deficiency Social History Marital status: Spouse name: Bossman Neville Years of education: Number of children: 2 Occupational History Occupation Employer Comment [employer] Social History Main Topics Smoking status: Never Smoker Smokeless status: Never Used Alcohol use: No Drug use: No Sexual activity: Not Currently REVIEW OF SYSTEMS: General:No weight loss, malaise or fevers. Genitourinary: See HPI The remainder of the ROS was negative. PHYSICAL EXAMINATION: There were no vitals taken for this visit. General appearance: Well appearing, alert, in no acute distress, well-hydrated, well nourished., well-hydrated, well nourished IMPRESSION ANDamp; PLAN: ANDgt; History of Urge Incontinence ANDgt; increase ditropan to 4 time daily, if still having the urgency I recommend Having a consult for possible sling insertion with ACCOUNT ADVISOR or Female Urology ANDgt; She admits she has a hard time remembering to take her medication several times per day but the cost of once a day Rx is too much Krupa Mccarty, MPAS, MT, PA-C Referring Provider: KRUPA MCCARTY ([place]) [[id number]] Allergies As of Date: 11/23/2017 (No Known Allergies) Date Reviewed: 11/23/2017 Reviewed by: Solange Jennings Ma - Fully Assessed Reason for Visit: Follow Up [171] Urge Urinary Incontinence [3581] Primary Visit Diagnosis:Urge incontinence [N39.41] Order(s):UA DIP, URINE (POC) [0027433] Order #: [id number] oxybutynin (DITROPAN) 5 mg tabletTake 1 tablet by mouth four times daily.Disp: 120 tabletRfl: 11 UA DIP, URINE (POC) [[id number]] Order #: [id number]. #:[id number] Prescriptions as of 11/23/2017 Sig: OXYBUTYNIN CHLORIDE 5 MG TABL* Take 1 tablet by mouth four t* CHOLECALCIFEROL (VITAMIN D3) * Take 1 capsule by mouth once * ALENDRONATE 70 MG TABLET Take 1 tablet by mouth once e* ATORVASTATIN 80 MG TABLET Take 0.5 tablets by mouth robby* MOMETASONE 0.1 % TOPICAL CREAM Apply 1 application to affect* RANITIDINE 150 MG CAPSULE Take 1 capsule by mouth twice* ALBUTEROL SULFATE HFA 90 MCG/* Inhale 2 Puffs as instructed * SODIUM CHLORIDE, SODIUM BICAR* Use sinus irrigation as neede* METOPROLOL SUCCINATE ER 100 M* Take 1 tablet by mouth once d* CLOPIDOGREL 75 MG TABLET Take 1 tablet by mouth once d* ASPIRIN 81 MG TABLET Take 1 tablet by mouth once d* NITROGLYCERIN 0.4 MG SUBLINGU* Dissolve 1 tablet under the t* Problem List As Of Date 11/23/2017 Noted Resolved LUMBAGO [M54.5] Impaired fasting glucose [R73.01] 09/29/2015 OBESITY NOS [E66.9] Other hyperlipidemia [E78.4] BENIGN HYPERTENSION [I10] Asthma [J45.909] INVALID FOR* Osteoporosis [M81.0] INVALID FOR* SPRAIN OF NECK [S13.9XXA] INVALID FOR*06/24/2008 SPRAIN SHOULDER/ARM NOS [S43.409A, S46.919A] INVALID FOR*06/24/2008 Sprain and strain of unspecified site of knee a*INVALID FOR*09/14/2012 CONTUSION NOS [T14.8XXA] INVALID FOR*06/24/2008 Osteoarthrosis involving lower leg [M17.10] INVALID FOR* Derangement of meniscus, not elsewhere classifi*INVALID FOR*09/14/2012 Vitamin D deficiency [E55.9] INVALID FOR* Skin infection [L08.9] INVALID FOR*09/14/2012 Vertigo [R42] INVALID FOR*09/14/2012 CAD (coronary artery disease) [I25.10] INVALID FOR* More... B12 deficiency [E53.8] INVALID FOR* Special screening for malignant neoplasms, colo*INVALID FOR*09/14/2012 Diverticulosis of colon (without mention of hem*INVALID FOR*09/14/2012 Gastroesophageal reflux disease without esophag*INVALID FOR* Diaphragmatic hernia without mention of obstruc*INVALID FOR*09/14/2012 Small fiber neuropathy [G62.9] INVALID FOR* YAMILETH (obstructive sleep apnea) [G47.33] INVALID FOR*03/17/2014 More... Pain in limb [M79.609] INVALID FOR*09/14/2012 Cervical spondylosis with radiculopathy [M47.22]INVALID FOR*09/29/2015 Primary generalized (osteo)arthritis [M15.0] INVALID FOR* More... Hypersomnia [G47.10] INVALID FOR*09/29/2015 More... Chronic nonallergic rhinitis [J31.0] INVALID FOR* Urge incontinence [N39.41] INVALID FOR* Dry mouth [R68.2] INVALID FOR* Dizziness and giddiness [R42] INVALID FOR* Prescriptions ordered this encounter Disp Refills Start End OXYBUTYNIN CHLORIDE 5 MG TABLET 90 t* 11 11/23/2017 11/23/2017 Route: ORAL Sig: Take 1 tablet by mouth three times daily. OXYBUTYNIN CHLORIDE 5 MG TABLET 120 * 11 11/23/2017 Route: ORAL Sig: Take 1 tablet by mouth four times daily. Medications Discontinued During This Encounter oxybutynin (DITROPAN) 5 mg tablet 90 t* 11 07/21/2017 11/23/2017 Cmt: This prescription was filled today(07/16/2016). Any refills authorized will be placed on file. Route: ORAL Sig: Take 1 tablet by mouth three times daily. Disc: Reason for discontinue is not on file. oxybutynin (DITROPAN) 5 mg tablet 90 t* 11 11/23/2017 11/23/2017 Route: ORAL Sig: Take 1 tablet by mouth three times daily. Disc: Reason for discontinue is not on file. Encounter Status:Closed by KRUPA MCCARTY PA-C on 11/23/17 Observed: 09/29/2017 Status: F Source: [place] URINE CULTURE 3:45 PM [facility] REPOSITORY Sp. Request/Comment: - Specimen received in preservative Culture Result - 50,000 - <100,000 CFU/ml Lactose negative gram negative bacilli --> ABNORMAL ALERT Insignificant colony count. No further workup. --> ABNORMAL ALERT 50,000 - <100,000 CFU/ml --> ABNORMAL ALERT Lactose positive gram negative bacilli --> ABNORMAL ALERT Insignificant colony count. No further workup. --> ABNORMAL ALERT Performed By: #### URCUL #### [facility] [address] [place] [id number] Observed: 09/02/2017 Status: F Source: [place] URINE CULTURE 7:59 PM [facility] REPOSITORY Sp. Request/Comment: - Specimen received in preservative Culture Result - 50,000 - <100,000 CFU/ml Three or more organisms, no one type predominant, suggesting contamination during collection. Recollect if clinically indicated. Performed By: #### URCUL #### [facility] [address] [place] [address] URINALYSIS WITH Collected: 09/02/2017 Status: F Source: [place] MICROSCOPIC 11:55 AM [facility] REPOSITORY TYPE CODE TESTS RESULT OUT OF RANGE REFERENCE UNITS LAB UCOL Yellow Color Yellow LAB [facility] Clear Clarity Abnormal Cloudy Alert LAB UGLUC Negative mg/dL Glucose, Urine Negative LAB UBIL Negative Bilirubin, Urine Negative LAB UKET Negative Ketones, Urine Negative LAB USPG 1.005-1.030 Specific [place], Ur 1.018 LAB UHGB Negative Abnormal Hemoglobin/Blood, 1+ Alert Ur LAB UPH 4.5-8.0 pH 6.0 LAB UPROT Negative mg/dL Protein, Urine Negative LAB UUROB Normal Urobilinogen Normal LAB UNITR Negative Nitrites Negative LAB ULKEST Negative Leukest Abnormal 3+ Alert LAB UCOM Comments SEE COMMENT Result Comment: N/A LAB UMCOM Urine SEE Sammy Comment COMMENT Result Comment: N/A LAB UWBC 0-5 /HPF Abnormal WBC Alert >25 LAB URBC 0-3 /HPF Abnormal RBC Alert 3-5 LAB UEPI /HPF Epithelial Cells SEE COMMENT Result Comment: Few Squamous Epithelial Cells Performed By: #### UAWMIC #### [facility] [address] [place], [place] [address] PROGRESS Observed: 09/02/2017 Status: COMPLETED Source: [place] 9:05 AM [facility] [place] REPOSITORY HNO ID: [id number] Author: Juan J Carcamo Service: (none) Author Type: Physician Type: Progress Notes Filed: 09/02/2017 12:28 PM Note Text: This note was created using HealthTeacher / GoNoodle. Subjective Breanna Phelps is a 76 year old female was here for follow up. Dizziness was intermittent. Lumbago was flared up recently from lifting and was getting better. Hypertension, coronary artery disease and asthma were controlled. She mentioned some memory disturbance. She had intermittent dysuria and spasms. She had significant fatigue and somnolence at times with this she was wondering about urine infection. Her last urology appointment showed hematuria presumably from cystocele and rectocele. Pessary fitting was attempted unsuccessfully recently at [facility]. ACTIVE PROBLEM LIST Lumbago Obesity, Unspecified Other and Unspecified Hyperlipidemia Essential Hypertension, Benign Asthma Osteoporosis Osteoarthrosis Involving Lower Leg Unspecified Vitamin D Deficiency Cad (Coronary Artery Disease) B12 Deficiency Gastroesophageal Reflux Disease Without Esophagitis Small Fiber Neuropathy (Hcc) Primary Generalized (Osteo)arthritis Chronic Nonallergic Rhinitis Urge Incontinence Dry Mouth Dizziness and Giddiness Review of Systems Constitutional: Positive for fatigue. Negative for chills, fever and unexpected weight change. HENT: Negative. Respiratory: Negative. Cardiovascular: Negative. Gastrointestinal: Negative. Genitourinary: Positive for dysuria and urgency. Musculoskeletal: Positive for arthralgias and back pain. Neurological: Negative. Psychiatric/Behavioral: Negative. Objective BP 138/69 Pulse 67 Temp (!) 35.9 ?C (96.7 ?F) (Right Tympanic) Resp 10 Wt 76.2 kg (168 lb) BMI 31.23 kg/m2 Physical Exam Constitutional: No distress. Eyes: Conjunctivae are normal. Cardiovascular: Normal heart sounds. Pulmonary/Chest: Breath sounds normal. Musculoskeletal: She exhibits no edema. Lumbar back: She exhibits no tenderness. Neurological: She is alert. Ambulatory with cane. See Folstein MMSE MMSE 28/30. Test results pertinent to today's visit were reviewed and discussed with the patient. ASSESSMENT/PLAN: 1. Medicare annual wellness visit, subsequent - ICD9: V70.0, ICD10: Z00.00 (primary diagnosis) See other note. 2. Urge incontinence - ICD9: 788.31, ICD10: N39.41 Pyruia, hematuria. Work up. - UA DIP B/O - URINALYSIS WITH MICROSCOPIC - URINE CULTURE 3. Midline low back pain without sciatica, unspecified chronicity - ICD9: 724.2, ICD10: M54.5 Chronic low back pain Stable. 4. Obesity, unspecified classification, unspecified obesity type, unspecified whether serious comorbidity present - ICD9: 278.00, ICD10: E66.9 Weight loss. 5. Other hyperlipidemia - ICD9: 272.4, ICD10: E78.4 - good control - Continue current medication. 6. Chronic nonallergic rhinitis - ICD9: 472.0, ICD10: J31.0 Stable. 7. Primary generalized (osteo)arthritis - ICD9: 715.09, ICD10: M15.0 Stable. 8. Small fiber neuropathy (HCC) - ICD9: 356.9, ICD10: G62.9 Stable. 9. Gastroesophageal reflux disease without esophagitis - ICD9: 530.81, ICD10: K21.9 Controlled. 10. B12 deficiency - ICD9: 266.2, ICD10: E53.8 Improved. 11. Coronary artery disease involving [place] heart without angina pectoris, unspecified vessel or lesion type - ICD9: 414.01, ICD10: I25.10 Stable. 12. Vitamin D deficiency - ICD9: 268.9, ICD10: E55.9 Change to OTC D3 5000 IU daily. 13. Osteoarthrosis involving lower leg - ICD9: 715.96, ICD10: M17.10 Stable. 14. Osteoporosis, unspecified osteoporosis type, unspecified pathological fracture presence - ICD9: 733.00, ICD10: M81.0 - continue tx with alendronate (Fosamax) for 3 more years. - Reviewed the need for Calcium and Vitamin D supplements and weight bearing exercise as tolerated 15. Uncomplicated asthma, unspecified asthma severity, unspecified whether persistent - ICD9: 493.90, ICD10: J45.909 Stable. 16. Essential hypertension, benign - ICD9: 401.1, ICD10: I10 - good control 17. Hypoglycemia - ICD9: 251.2, ICD10: E16.2 Discussed remedy. 18. Mild memory disturbance - ICD9: 780.93, ICD10: R41.3 Monitor. Juan J Carcamo MD PROGRESS Observed: 09/02/2017 Status: COMPLETED Source: [place] 8:37 AM [facility] REPOSITORY HNO ID: [id number] Author: Juan J Carcamo Service: (none) Author Type: Physician Type: Progress Notes Filed: 09/02/2017 12:28 PM Note Text: Medicare Yearly Visit Medical B eligibilty date 2006 Date of last exam N/A PAST MEDICAL HISTORY Diagnosis Date - Acid reflux - Adjustment disorder with depressed mood - Anemia - Asthma - CAD (coronary artery disease) 11/24/2011 - Cervical spondylosis with radiculopathy 05/14/2012 - CHOLECYSTITIS SEE ALSO GALLBLADDER ACUTE WITH CALCULUS( Without obstruction) 12/11/2008 - DERANGEMENT MENISCUS NEC 03/25/2008 - Diaphragmatic hernia without mention of obstruction or gangrene - Disorder of bone and cartilage, unspecified 06/06/2007 Osteopenia - Diverticulosis of colon (without mention of hemorrhage) - Dry eyes, bilateral - Essential hypertension, benign - High cholesterol - Hypersomnia 03/17/2014 Dr. Worrell - Hypertension - Impaired fasting glucose - Lumbago - Miscarriage - Obesity, unspecified - YAMILETH (obstructive sleep apnea) 04/17/2012 - Other and unspecified hyperlipidemia - Rheumatic fever - Small fiber neuropathy (HCC) 04/03/2012 - Ulcer disease - Unspecified asthma(493.90) 11/24/2005 - Unspecified vitamin D deficiency 07/04/2008 - Urge incontinence 08/17/2016 - Vertigo 12/28/2010 - Vitamin B deficiency PAST SURGICAL HISTORY Procedure Laterality Date - APPENDECTOMY - COLONOSCOP W/ OR W/O BRSH SPEC 03/09/2012 Colonoscopy - EGD W/O OR W/BRUSH/WASH 03/09/2012 EGD - KNEE SCOPE,DIAGNOSTIC December2007 Arthroscopy, knee, right knee. - LAP CHOLECYSTECT/CHOLANGIOGRAPHY 11/29/08 - REM LESIO TRUNK,ARM,LEG 1.1 -2.0CM 01/27/2010 Exc. RLQ skin lesion - TOTAL ABDOM HYSTERECTOMY - TRANSCATH STENT INIT VESSEL,PERCUT 11/24/2011 Transcath stent init vessel percut, LAD Review of patient's allergies indicates no known allergies. Medications reviewed: Yes FAMILY HISTORY Problem Relation Age of Onset - heart attack [OTHER] Mother - TB [OTHER] Father - Diabetes Maternal Grandfather - Breast Cancer Sister - lung cancer [OTHER] Brother - Coronary Artery Disease Brother - Genitourinary () Brother hemodialysis - Stroke Sister IC aneurysm - Alzheimer's Disease Sister - Psoriasis Sister SOCIAL HISTORY: Social History Marital status: Spouse name: Bossman Neville Years of education: Number of children: 2 Occupational History Occupation Employer Comment [employer] Social History Main Topics Smoking status: Never Smoker Smokeless status: Never Used Alcohol use: No Drug use: No Sexual activity: Not Currently Breanna is more or less sedentary occasionally exercising in the form of walking. She watches her diet for sodium, low fat and low cholesterol most of the time. List of current specialists seen: Dr. Alvarado, cardiology. Gaston Nuñez, CHRISTIAN SCIENCE PRACTITIONER, gynecology. End of Live Planning discussed including patients advanced directive wishes: No I am willing to follow Braenna's advanced directives. Depression screen She in the past two weeks denies having felt down, depressed, hopeless or with little interest or pleasure in doing things. Functional Ability/Safety Screen 1. Was the patient's timed Up and Go test unsteady or longer than 30 seconds? No 2. Does the patient need help with the phone, transportation, shopping,preparing meals, housework, laundry, medications or managing money? No 3. Does your home have rugs in the hallway, lack of grab bars in the bathroom, lack of handrails on the stairs or have poor lighting? No Hearing Evaluation: normal PHYSICAL EXAM BP 138/69 Pulse 67 Temp (!) 35.9 ?C (96.7 ?F) (Right Tympanic) Resp 10 Wt 76.2 kg (168 lb) BMI 31.23 kg/m2 Alert and oriented X 3: YES Body mass index is 31.23 kg/(m2). Visual acuity: see vision tab. ASSESSMENT/PLAN: 76 year old female The following prevention plan was discussed during the office visit and provided to the patient: - Weight Loss - Fall avoidance - Vaccines recommended Td, ABN is required Juan J Carcamo MD CNOV Observed: 09/02/2017 Status: COMPLETED Source: [place] 8:20 AM [facility] REPOSITORY Office Visit (INTMWS) BREANNA PHELPS ([id number]) 1940 F Date Time Provider Department 09/02/17 8:20 AM JUAN J CARCAMO INTMWS During your visit today, we recorded the following information about you: Temperature Pulse Respiration Blood pressure 96.7 degrees 67/minute 10/minute 138/69 Weight 76.2 kg Juan J Carcamo MD 09/02/2017 12:28 PM Signed Medicare Yearly Visit Medical B eligibilty date 2006 Date of last exam N/A PAST MEDICAL HISTORY Diagnosis Date - Acid reflux - Adjustment disorder with depressed mood - Anemia - Asthma - CAD (coronary artery disease) 11/24/2011 - Cervical spondylosis with radiculopathy 05/14/2012 - CHOLECYSTITIS SEE ALSO GALLBLADDER ACUTE WITH CALCULUS( Without obstruction) 12/11/2008 - DERANGEMENT MENISCUS NEC 03/25/2008 - Diaphragmatic hernia without mention of obstruction or gangrene - Disorder of bone and cartilage, unspecified 06/06/2007 Osteopenia - Diverticulosis of colon (without mention of hemorrhage) - Dry eyes, bilateral - Essential hypertension, benign - High cholesterol - Hypersomnia 03/17/2014 Dr. Worrell - Hypertension - Impaired fasting glucose - Lumbago - Miscarriage - Obesity, unspecified - YAMILETH (obstructive sleep apnea) 04/17/2012 - Other and unspecified hyperlipidemia - Rheumatic fever - Small fiber neuropathy (HCC) 04/03/2012 - Ulcer disease - Unspecified asthma(493.90) 11/24/2005 - Unspecified vitamin D deficiency 07/04/2008 - Urge incontinence 08/17/2016 - Vertigo 12/28/2010 - Vitamin B deficiency PAST SURGICAL HISTORY Procedure Laterality Date - APPENDECTOMY - COLONOSCOP W/ OR W/O BRSH SPEC 03/09/2012 Colonoscopy - EGD W/O OR W/BRUSH/WASH 03/09/2012 EGD - KNEE SCOPE,DIAGNOSTIC December2007 Arthroscopy, knee, right knee. - LAP CHOLECYSTECT/CHOLANGIOGRAPHY 11/29/08 - REM LESIO TRUNK,ARM,LEG 1.1 -2.0CM 01/27/2010 Exc. RLQ skin lesion - TOTAL ABDOM HYSTERECTOMY - TRANSCATH STENT INIT VESSEL,PERCUT 11/24/2011 Transcath stent init vessel percut, LAD Review of patient's allergies indicates no known allergies. Medications reviewed: Yes FAMILY HISTORY Problem Relation Age of Onset - heart attack [OTHER] Mother - TB [OTHER] Father - Diabetes Maternal Grandfather - Breast Cancer Sister - lung cancer [OTHER] Brother - Coronary Artery Disease Brother - Genitourinary () Brother hemodialysis - Stroke Sister IC aneurysm - Alzheimer's Disease Sister - Psoriasis Sister SOCIAL HISTORY: Social History Marital status: Spouse name: Bossman Neville Years of education: Number of children: 2 Occupational History Occupation Employer Comment [employer] Social History Main Topics Smoking status: Never Smoker Smokeless status: Never Used Alcohol use: No Drug use: No Sexual activity: Not Currently Breanna is more or less sedentary occasionally exercising in the form of walking. She watches her diet for sodium, low fat and low cholesterol most of the time. List of current specialists seen: Dr. Alvarado, cardiology. Gaston Nuñez, CHRISTIAN SCIENCE PRACTITIONER, gynecology. End of Live Planning discussed including patients advanced directive wishes: No I am willing to follow Breanna's advanced directives. Depression screen She in the past two weeks denies having felt down, depressed, hopeless or with little interest or pleasure in doing things. Functional Ability/Safety Screen 1. Was the patient's timed Up and Go test unsteady or longer than 30 seconds? No 2. Does the patient need help with the phone, transportation, shopping,preparing meals, housework, laundry, medications or managing money? No 3. Does your home have rugs in the hallway, lack of grab bars in the bathroom, lack of handrails on the stairs or have poor lighting? No Hearing Evaluation: normal PHYSICAL EXAM BP 138/69 Pulse 67 Temp (!) 35.9 ?C (96.7 ?F) (Right Tympanic) Resp 10 Wt 76.2 kg (168 lb) BMI 31.23 kg/m2 Alert and oriented X 3: YES Body mass index is 31.23 kg/(m2). Visual acuity: see vision tab. ASSESSMENT/PLAN: 76 year old female The following prevention plan was discussed during the office visit and provided to the patient: - Weight Loss - Fall avoidance - Vaccines recommended Td, ABN is required MD Juan J Harrison MD 09/02/2017 12:28 PM Signed This note was created using HealthTeacher / GoNoodle. Kay Phelps is a 76 year old female was here for follow up. Dizziness was intermittent. Lumbago was flared up recently from lifting and was getting better. Hypertension, coronary artery disease and asthma were controlled. She mentioned some memory disturbance. She had intermittent dysuria and spasms. She had significant fatigue and somnolence at times with this she was wondering about urine infection. Her last urology appointment showed hematuria presumably from cystocele and rectocele. Pessary fitting was attempted unsuccessfully recently at [facility]. ACTIVE PROBLEM LIST Lumbago Obesity, Unspecified Other and Unspecified Hyperlipidemia Essential Hypertension, Benign Asthma Osteoporosis Osteoarthrosis Involving Lower Leg Unspecified Vitamin D Deficiency Cad (Coronary Artery Disease) B12 Deficiency Gastroesophageal Reflux Disease Without Esophagitis Small Fiber Neuropathy (Hcc) Primary Generalized (Osteo)arthritis Chronic Nonallergic Rhinitis Urge Incontinence Dry Mouth Dizziness and Giddiness Review of Systems Constitutional: Positive for fatigue. Negative for chills, fever and unexpected weight change. HENT: Negative. Respiratory: Negative. Cardiovascular: Negative. Gastrointestinal: Negative. Genitourinary: Positive for dysuria and urgency. Musculoskeletal: Positive for arthralgias and back pain. Neurological: Negative. Psychiatric/Behavioral: Negative. Objective BP 138/69 Pulse 67 Temp (!) 35.9 ?C (96.7 ?F) (Right Tympanic) Resp 10 Wt 76.2 kg (168 lb) BMI 31.23 kg/m2 Physical Exam Constitutional: No distress. Eyes: Conjunctivae are normal. Cardiovascular: Normal heart sounds. Pulmonary/Chest: Breath sounds normal. Musculoskeletal: She exhibits no edema. Lumbar back: She exhibits no tenderness. Neurological: She is alert. Ambulatory with cane. See Folstein MMSE MMSE 28/30. Test results pertinent to today's visit were reviewed and discussed with the patient. ASSESSMENT/PLAN: 1. Medicare annual wellness visit, subsequent - ICD9: V70.0, ICD10: Z00.00 (primary diagnosis) See other note. 2. Urge incontinence - ICD9: 788.31, ICD10: N39.41 Pyruia, hematuria. Work up. - UA DIP B/O - URINALYSIS WITH MICROSCOPIC - URINE CULTURE 3. Midline low back pain without sciatica, unspecified chronicity - ICD9: 724.2, ICD10: M54.5 Chronic low back pain Stable. 4. Obesity, unspecified classification, unspecified obesity type, unspecified whether serious comorbidity present - ICD9: 278.00, ICD10: E66.9 Weight loss. 5. Other hyperlipidemia - ICD9: 272.4, ICD10: E78.4 - good control - Continue current medication. 6. Chronic nonallergic rhinitis - ICD9: 472.0, ICD10: J31.0 Stable. 7. Primary generalized (osteo)arthritis - ICD9: 715.09, ICD10: M15.0 Stable. 8. Small fiber neuropathy (HCC) - ICD9: 356.9, ICD10: G62.9 Stable. 9. Gastroesophageal reflux disease without esophagitis - ICD9: 530.81, ICD10: K21.9 Controlled. 10. B12 deficiency - ICD9: 266.2, ICD10: E53.8 Improved. 11. Coronary artery disease involving [place] heart without angina pectoris, unspecified vessel or lesion type - ICD9: 414.01, ICD10: I25.10 Stable. 12. Vitamin D deficiency - ICD9: 268.9, ICD10: E55.9 Change to OTC D3 5000 IU daily. 13. Osteoarthrosis involving lower leg - ICD9: 715.96, ICD10: M17.10 Stable. 14. Osteoporosis, unspecified osteoporosis type, unspecified pathological fracture presence - ICD9: 733.00, ICD10: M81.0 - continue tx with alendronate (Fosamax) for 3 more years. - Reviewed the need for Calcium and Vitamin D supplements and weight bearing exercise as tolerated 15. Uncomplicated asthma, unspecified asthma severity, unspecified whether persistent - ICD9: 493.90, ICD10: J45.909 Stable. 16. Essential hypertension, benign - ICD9: 401.1, ICD10: I10 - good control 17. Hypoglycemia - ICD9: 251.2, ICD10: E16.2 Discussed remedy. 18. Mild memory disturbance - ICD9: 780.93, ICD10: R41.3 Monitor. MD Shraddha Harrison Ma 09/02/2017 9:33 AM Signed VISUAL ACUITY: Today's exam: Vision Correction? Glasses: RIGHT EYE: 20/50 LEFT EYE: 20/ 40 BOTH EYES: 20/40 Referring Provider: JUAN J CARCAMO [[id number]] Allergies As of Date: 09/02/2017 (No Known Allergies) Date Reviewed: 09/02/2017 Reviewed by: Shraddha Robert Ma - Fully Assessed Reason for Visit: Physical [83] Primary Visit Diagnosis:Medicare annual wellness visit, subsequent [Z00.00] Other Visit Diagnoses:Urge incontinence [N39.41] Midline low back pain without sciatica, unspecified chronicity [M54.5] Obesity, unspecified classification, unspecified obesity type, unspecified whether serious comorbidity present [E66.9] Other hyperlipidemia [E78.4] Chronic nonallergic rhinitis [J31.0] Primary generalized (osteo)arthritis [M15.0] Small fiber neuropathy (HCC) [G62.9] Gastroesophageal reflux disease without esophagitis [K21.9] B12 deficiency [E53.8] Coronary artery disease involving [place] heart without angina pectoris, unspecified vessel or lesion type [I25.10] Vitamin D deficiency [E55.9] Osteoarthrosis involving lower leg [M17.10] Osteoporosis, unspecified osteoporosis type, unspecified pathological fracture presence [M81.0] Uncomplicated asthma, unspecified asthma severity, unspecified whether persistent [J45.909] Essential hypertension, benign [I10] Hypoglycemia [E16.2] Mild memory disturbance [R41.3] Order(s):UA DIP B/O [[id number]] Order #: [id number] URINALYSIS WITH MICROSCOPIC [SQUAWMIC] Order #: [id number]. #:[id number] URINE CULTURE [SQURCUL] Order #: [id number] Cholecalciferol, Vitamin D3, 5,000 unit capTake 1 capsule by mouth once daily.Disp: Rfl: Prescriptions as of 09/02/2017 Sig: OXYBUTYNIN CHLORIDE 5 MG TABL* Take 1 tablet by mouth three * ALENDRONATE 70 MG TABLET Take 1 tablet by mouth once e* ATORVASTATIN 80 MG TABLET Take 0.5 tablets by mouth robby* MOMETASONE 0.1 % TOPICAL CREAM Apply 1 application to affect* RANITIDINE 150 MG CAPSULE Take 1 capsule by mouth twice* ALBUTEROL SULFATE HFA 90 MCG/* Inhale 2 Puffs as instructed * METOPROLOL SUCCINATE ER 100 M* Take 1 tablet by mouth once d* CLOPIDOGREL 75 MG TABLET Take 1 tablet by mouth once d* ASPIRIN 81 MG TABLET Take 1 tablet by mouth once d* NITROGLYCERIN 0.4 MG SUBLINGU* Dissolve 1 tablet under the t* CHOLECALCIFEROL (VITAMIN D3) * Take 1 capsule by mouth once * SODIUM CHLORIDE, SODIUM BICAR* Use sinus irrigation as neede* Problem List As Of Date 09/02/2017 Noted Resolved LUMBAGO [M54.5] Impaired fasting glucose [R73.01] 09/29/2015 OBESITY NOS [E66.9] Other hyperlipidemia [E78.4] BENIGN HYPERTENSION [I10] Asthma [J45.909] INVALID FOR* Osteoporosis [M81.0] INVALID FOR* SPRAIN OF NECK [S13.9XXA] INVALID FOR*06/24/2008 SPRAIN SHOULDER/ARM NOS [S43.409A, S46.919A] INVALID FOR*06/24/2008 Sprain and strain of unspecified site of knee a*INVALID FOR*09/14/2012 CONTUSION NOS [T14.8XXA] INVALID FOR*06/24/2008 Osteoarthrosis involving lower leg [M17.10] INVALID FOR* Derangement of meniscus, not elsewhere classifi*INVALID FOR*09/14/2012 Vitamin D deficiency [E55.9] INVALID FOR* Skin infection [L08.9] INVALID FOR*09/14/2012 Vertigo [R42] INVALID FOR*09/14/2012 CAD (coronary artery disease) [I25.10] INVALID FOR* More... B12 deficiency [E53.8] INVALID FOR* Special screening for malignant neoplasms, colo*INVALID FOR*09/14/2012 Diverticulosis of colon (without mention of hem*INVALID FOR*09/14/2012 Gastroesophageal reflux disease without esophag*INVALID FOR* Diaphragmatic hernia without mention of obstruc*INVALID FOR*09/14/2012 Small fiber neuropathy [G62.9] INVALID FOR* YAMILETH (obstructive sleep apnea) [G47.33] INVALID FOR*03/17/2014 More... Pain in limb [M79.609] INVALID FOR*09/14/2012 Cervical spondylosis with radiculopathy [M47.22]INVALID FOR*09/29/2015 Primary generalized (osteo)arthritis [M15.0] INVALID FOR* More... Hypersomnia [G47.10] INVALID FOR*09/29/2015 More... Chronic nonallergic rhinitis [J31.0] INVALID FOR* Urge incontinence [N39.41] INVALID FOR* Dry mouth [R68.2] INVALID FOR* Dizziness and giddiness [R42] INVALID FOR* Visit Notes: >> Shraddha Robert Ma Sat Sep 02, 2017 9:32 AM Status: Signed VISUAL ACUITY: Today's exam: Vision Correction? Glasses: RIGHT EYE: 20/50 LEFT EYE: 20/ 40 BOTH EYES: 20/40 Prescriptions ordered this encounter Disp Refills Start End CHOLECALCIFEROL (VITAMIN D3) 5,000 U* 09/02/2017 Class: OTC Route: ORAL Sig: Take 1 capsule by mouth once daily. Medications Discontinued During This Encounter albuterol 90 mcg/actuation aero 1 In* 2 10/23/2013 09/02/2017 Route: INHALATION Sig: Inhale 2 Puffs as instructed every 4 hours as needed (cough, wheezing.). Disc: Reason for discontinue is not on file. ergocalciferol, vitamin D2, (VITAMIN* 36 c* 0 07/13/2017 09/02/2017 Sig: Take 1 capsule by mouth 3 times a WEEK. Disc: Cost of medication Disposition: Return in about 6 months (around 03/02/2018). Follow-up and Disposition History Recorded Encounter Status:Closed by JUAN J CARCAMO MD on 09/02/17 SARA Observed: 08/25/2017 Status: COMPLETED Source: [place] 10:30 AM [facility] REPOSITORY Office Visit (WOOB) BREANNA PHELPS ([id number]) 1940 F Date Time Provider Department 08/25/17 10:30 AM RACHAEL NUÑEZ) WOOB During your visit today, we recorded the following information about you: Blood pressure Weight 120/68 77 kg RACHAEL NUÑEZ CNP 08/28/2017 8:43 AM Signed Breanna Phelps age 76 presents for a pessary fitting due to incontinence. She has not had vaginal discharge and bleeding. She does not use her prescribed estrogen cream. Exam: Cysto. No bleeding or vaginal irritation seen. A cube size 2 was placed without difficulty but did not stay in when bearing down, cube size 3 was uncomfortable for pt. Have also tried a size 4 ANDamp; 5 ring with support which did not fit well. Impression/plan: 1) was not able to place any pessary that was well fitting for the patient. Dr Dunlap provided assistance in trying to find the proper fitting pessary also unsuccessfully. Pt was offer a referral to Uro/Operation Research Analyst she does not want to proceed with that at this time. She will call if she does decided to see Uro/ACCOUNT ADVISOR. 2) follow up as needed RACHAEL NUÑEZ CNP Referring Provider: SELF [200] Allergies As of Date: 08/25/2017 (No Known Allergies) Date Reviewed: 08/25/2017 Reviewed by: Rachael Craig) Joaquin - Fully Assessed Reason for Visit: pessary fitting [Other] Primary Visit Diagnosis:Encounter for fitting and adjustment of pessary [Z46.89] Prescriptions as of 08/25/2017 Sig: OXYBUTYNIN CHLORIDE 5 MG TABL* Take 1 tablet by mouth three * ERGOCALCIFEROL (VITAMIN D2) 5* Take 1 capsule by mouth 3 jaylon* ALENDRONATE 70 MG TABLET Take 1 tablet by mouth once e* ATORVASTATIN 80 MG TABLET Take 0.5 tablets by mouth robby* MOMETASONE 0.1 % TOPICAL CREAM Apply 1 application to affect* RANITIDINE 150 MG CAPSULE Take 1 capsule by mouth twice* ALBUTEROL SULFATE HFA 90 MCG/* Inhale 2 Puffs as instructed * SODIUM CHLORIDE, SODIUM BICAR* Use sinus irrigation as neede* ALBUTEROL 90 MCG/ACTUATION AE* Inhale 2 Puffs as instructed * METOPROLOL SUCCINATE ER 100 M* Take 1 tablet by mouth once d* CLOPIDOGREL 75 MG TABLET Take 1 tablet by mouth once d* ASPIRIN 81 MG TABLET Take 1 tablet by mouth once d* NITROGLYCERIN 0.4 MG SUBLINGU* Dissolve 1 tablet under the t* Problem List As Of Date 08/25/2017 Noted Resolved LUMBAGO [M54.5] Impaired fasting glucose [R73.01] 09/29/2015 OBESITY NOS [E66.9] HYPERLIPIDEMIA NEC/NOS [E78.5] BENIGN HYPERTENSION [I10] Asthma [J45.909] INVALID FOR* Osteoporosis [M81.0] INVALID FOR* SPRAIN OF NECK [S13.9XXA] INVALID FOR*06/24/2008 SPRAIN SHOULDER/ARM NOS [S43.409A, S46.919A] INVALID FOR*06/24/2008 Sprain and strain of unspecified site of knee a*INVALID FOR*09/14/2012 CONTUSION NOS [T14.8XXA] INVALID FOR*06/24/2008 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 B12 deficiency [E53.8] INVALID FOR* Special screening for malignant neoplasms, colo*INVALID FOR*09/14/2012 Diverticulosis of colon (without mention of hem*INVALID FOR*09/14/2012 Gastroesophageal reflux disease without esophag*INVALID FOR* Diaphragmatic hernia without mention of obstruc*INVALID FOR*09/14/2012 Small fiber neuropathy [G62.9] INVALID FOR* YAMILETH (obstructive sleep apnea) [G47.33] INVALID FOR*03/17/2014 More... Pain in limb [M79.609] INVALID FOR*09/14/2012 Cervical spondylosis with radiculopathy [M47.22]INVALID FOR*09/29/2015 Primary generalized (osteo)arthritis [M15.0] INVALID FOR* More... Hypersomnia [G47.10] INVALID FOR*09/29/2015 More... Chronic nonallergic rhinitis [J31.0] INVALID FOR* Urge incontinence [N39.41] INVALID FOR* Dry mouth [R68.2] INVALID FOR* Encounter Status:Closed by RACHAEL NUÑEZ on 08/28/17 PROGRESS Observed: 08/25/2017 Status: COMPLETED Source: [place] 10:29 AM [facility] REPOSITORY HNO ID: [id number] Author: Rachael Craig) Joaquin Service: (none) Author Type: Nurse Practitioner Type: Progress Notes Filed: 08/28/2017 8:43 AM Note Text: Breanna Phelps age 76 presents for a pessary fitting due to incontinence. She has not had vaginal discharge and bleeding. She does not use her prescribed estrogen cream. Exam: Cysto. No bleeding or vaginal irritation seen. A cube size 2 was placed without difficulty but did not stay in when bearing down, cube size 3 was uncomfortable for pt. Have also tried a size 4 AND 5 ring with support which did not fit well. Impression/plan: 1) was not able to place any pessary that was well fitting for the patient. Dr Dunlap provided assistance in trying to find the proper fitting pessary also unsuccessfully. Pt was offer a referral to Uro/Operation Research Analyst she does not want to proceed with that at this time. She will call if she does decided to see Uro/ACCOUNT ADVISOR. 2) follow up as needed RACHAEL NUÑEZ CNP VITAMIN D 25 HYDROXY Collected: 08/21/2017 Status: F Source: [place] 12:54 PM [facility] REPOSITORY TYPE CODE TESTS RESULT OUT OF REFERENCE UNITS RANGE LAB VITD 31.0-80.0 ng/mL Vitamin D 25 74.0 Hydroxy Result Comment: Classification of 25 [place] Vitamin D status: Insufficiency/Moderate Deficiency: < or = 30 ng/mL Sufficiency/Optimal Levels: 31 to 80 ng/mL Toxicity: > 100 ng/mL Test performed by chemiluminescent immunoassay. Performed By: #### VITD, CBCDIF, BMP, B12 #### [facility] [address] [place], [place] [address] CBC AND DIFFERENTIAL Collected: 08/21/2017 Status: F Source: [place] 12:54 PM [facility] REPOSITORY TYPE CODE TESTS RESULT OUT OF REFERENCE UNITS RANGE LAB WBC 3.70-11.00 k/uL WBC 6.31 LAB RBC 3.90-5.20 m/uL RBC 4.34 LAB HGB 11.5-15.5 g/dL Hemoglobin 13.6 LAB HCT 36.0-46.0 % Hematocrit 43.8 LAB MCV 80.0-100.0 fL MCV High 100.9 LAB MCH 26.0-34.0 pG MCH 31.3 LAB MCHC 30.5-36.0 g/dL MCHC 31.1 LAB RDWCV 11.5-15.0 % RDW-CV 11.9 LAB PLTCT 150-400 k/uL Platelet Count 301 LAB MPV 9.0-12.7 fL MPV 11.0 LAB ANEUT % Neut% 54.6 LAB AANEUT 1.45-7.50 k/uL Abs Neut 3.44 LAB ALYMP % Lymph% 31.1 LAB AALYMP 1.00-4.00 k/uL Abs Lymph 1.96 LAB AMONO % [place]% 7.8 LAB AAMONO <0.87 k/uL Abs [place] 0.49 LAB AEOS % Eosin% 5.7 LAB AAEOS <0.46 k/uL Abs Eosin 0.36 LAB ABASO % Baso% 0.8 LAB AABASO <0.11 k/uL Abs Baso 0.05 LAB AUNRBC 0 /100 WBC NRBCs 0.0 LAB ABNRBC <0.01 k/uL Absolute nRBC <0.01 LAB DTYP DTYPE Auto Diff Performed By: #### VITD, CBCDIF, BMP, B12 #### [facility] [address] [place], [place] [address] BASIC METABOLIC PANL Collected: 08/21/2017 Status: F Source: [place] 12:54 PM [facility] REPOSITORY TYPE CODE TESTS RESULT OUT OF REFERENCE UNITS RANGE LAB GLU 74-99 mg/dL Low Glucose 65 Result Comment: The [place] [employer] (ADA) provides guidance for cutoff values for fasting glucose and random glucose. The ADA defines fasting as no caloric intake for at least 8 hours. Fas ting plasma glucose results between 100 to 125 mg/dL indicate increased risk for diabetes (prediabetes). Fasting plasma glucose results greater than or equal to 126 mg/dL meet the criteria for diagnosis of diabetes. In the absence of unequivocal hyperglycemia, results should be confirmed by repeat testing. In a patient with classic symptoms of hyperglycemia or hyperglycemic crisis, random plasma glucose results greater than or equal to 200 mg/dL meet the criteria for diagnosis of diabetes. Reference: Standards of Medical Care in Diabetes 2016, [place] [employer]. Diabetes Care. 2016.39(Suppl 1). LAB BUN 7-21 mg/dL BUN 17 LAB CRET 0.58-0.96 mg/dL Creatinine 0.65 LAB NA 136-144 mmol/L Sodium 142 LAB K 3.7-5.1 mmol/L Potassium 4.6 LAB CL 97-105 mmol/L Chloride 104 LAB CO2 22-30 mmol/L CO2 24 LAB AGAP 9-18 mmol/L Anion Gap 14 LAB CA 8.5-10.2 mg/dL Calcium, Total 9.6 LAB GFRAA eGFR- Amer. >60 LAB GFRNAA . eGFR-All Other Races >60 Result Comment: eGFR (Estimated GFR) Units of measure: mL/min/1.73 meters squared eGFR is derived from the reexpressed MDRD Study equation using the following parameters: serum creatinine, age, gender and race. The creatinine assay has been calibrated to be traceable to IDMS. An eGFR <60 mL/min/1.73m2 for >3 months is consistent with chronic kidney disease. Refer to KDOQI guidelines for clinical interpretation. In patients with unstable renal function, e.g. those with acute kidney injury, the eGFR may not accurately reflect actual GFR. Performed By: #### VITD, CBCDIF, BMP, B12 #### [facility] [address] [place], [place] [address] VITAMIN B12 Collected: 08/21/2017 Status: F Source: [place] 12:54 PM [facility] REPOSITORY TYPE CODE TESTS RESULT OUT OF REFERENCE UNITS RANGE LAB B12 232-1245 pg/mL Vitamin B12 285 Performed By: #### VITD, CBCDIF, BMP, B12 #### [facility] [address] [place], [place] [address] LIPID PANEL, BASIC Collected: 08/21/2017 Status: F Source: [place] 12:54 PM [facility] REPOSITORY TYPE CODE TESTS RESULT OUT OF REFERENCE UNITS RANGE LAB TRIGLY 30-149 mg/dL Triglyceride 73 LAB CHOL 100-199 mg/dL Cholesterol 148 LAB HDL >55 mg/dL Low HDL-Cholesterol 46 LAB VLDL 6-40 mg/dL VLDL Cholesterol 15 LAB LDL 60-129 mg/dL LDL-Cholesterol 87 LAB FT hrs Fasting Time 2 LAB TCHDL 1.00-5.00 TC:HDL Ratio 3.22 LAB LDLHDL 0.50-3.55 LDL:HDL Ratio 1.89 LAB NONHDL 90-159 mg/dL Non HDL Cholesterol 102 Performed By: #### LIPB #### [facility] [address] [place], [place] [address] CNPTOUTREAJOHN Observed: 08/08/2017 Status: COMPLETED Source: [place] 12:00 AM [facility] REPOSITORY Patient Outreach (FAMPST) BREANNA PHELPS ([id number]) 1940 F Date Time Provider Department 08/08/17 JUAN J CARCAMO FAMPST During your visit today, we recorded the following information about you: Allergies As of Date: 08/08/2017 (No Known Allergies) Date Reviewed: 07/25/2017 Reviewed by: Rachael Nuñez - Fully Assessed Visit Diagnosis:Medication management [Z79.899] Order(s):LIPID PANEL BASIC [SQLIPB] Order #: [id number] FUTURE Prescriptions as of 08/08/2017 Sig: OXYBUTYNIN CHLORIDE 5 MG TABL* Take 1 tablet by mouth three * X ERGOCALCIFEROL (VITAMIN D2) 5* Take 1 capsule by mouth 3 jaylon* ALENDRONATE 70 MG TABLET Take 1 tablet by mouth once e* ATORVASTATIN 80 MG TABLET Take 0.5 tablets by mouth robby* MOMETASONE 0.1 % TOPICAL CREAM Apply 1 application to affect* RANITIDINE 150 MG CAPSULE Take 1 capsule by mouth twice* ALBUTEROL SULFATE HFA 90 MCG/* Inhale 2 Puffs as instructed * SODIUM CHLORIDE, SODIUM BICAR* Use sinus irrigation as neede* X ALBUTEROL 90 MCG/ACTUATION AE* Inhale 2 Puffs as instructed * METOPROLOL SUCCINATE ER 100 M* Take 1 tablet by mouth once d* CLOPIDOGREL 75 MG TABLET Take 1 tablet by mouth once d* ASPIRIN 81 MG TABLET Take 1 tablet by mouth once d* NITROGLYCERIN 0.4 MG SUBLINGU* Dissolve 1 tablet under the t* Problem List As Of Date 08/08/2017 Noted Resolved LUMBAGO [M54.5] Impaired fasting glucose [R73.01] 09/29/2015 OBESITY NOS [E66.9] HYPERLIPIDEMIA NEC/NOS [E78.5] BENIGN HYPERTENSION [I10] Asthma [J45.909] INVALID FOR* Osteoporosis [M81.0] INVALID FOR* SPRAIN OF NECK [S13.9XXA] INVALID FOR*06/24/2008 SPRAIN SHOULDER/ARM NOS [S43.409A, S46.919A] INVALID FOR*06/24/2008 Sprain and strain of unspecified site of knee a*INVALID FOR*09/14/2012 CONTUSION NOS [T14.8XXA] INVALID FOR*06/24/2008 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 B12 deficiency [E53.8] INVALID FOR* Special screening for malignant neoplasms, colo*INVALID FOR*09/14/2012 Diverticulosis of colon (without mention of hem*INVALID FOR*09/14/2012 Gastroesophageal reflux disease without esophag*INVALID FOR* Diaphragmatic hernia without mention of obstruc*INVALID FOR*09/14/2012 Small fiber neuropathy [G62.9] INVALID FOR* YAMILETH (obstructive sleep apnea) [G47.33] INVALID FOR*03/17/2014 More... Pain in limb [M79.609] INVALID FOR*09/14/2012 Cervical spondylosis with radiculopathy [M47.22]INVALID FOR*09/29/2015 Primary generalized (osteo)arthritis [M15.0] INVALID FOR* More... Hypersomnia [G47.10] INVALID FOR*09/29/2015 More... Chronic nonallergic rhinitis [J31.0] INVALID FOR* Urge incontinence [N39.41] INVALID FOR* Dry mouth [R68.2] INVALID FOR* Encounter Status:Closed by PATTI, PRODUSER on 10/01/17 ALLERGIES ALLERGIES DATE TYPE / CODE NAME / CODE REACTION SEVERITY SOURCE 07/12/2018 Drug No Known Unknown [facility] Allergy/416 Allergies/O54638 Hospital 538145(SNOM 0388(RXNORM) Repository ED CT) Drug NO KNOWN [facility] Class/36196 ALLERGIES [address] [place] 1003(SNOMED Repository CT) ENCOUNTERS ENCOUNTERS ADMIT/DISCHARGE ACCOUNT ADMITTING ENCOUNTER LOCATION SOURCE NUMBER CLASS 07/12/2018/07/12/20 [id number] Ambulatory BMSBuilding:[address] [place] [address] [facility] Repository 07/10/2018 [id number] Ambulatory [facility] ing:LAB Repository 02/16/2018 [id number] Ambulatory [facility] ing:MTLAB Repository 02/16/2018/02/17/20 [id number] Ambulatory [address] Repository 02/07/2018/02/09/20 [id number] Ambulatory [address] Repository 02/06/2018/02/07/20 [id number] Ambulatory [address] Repository 01/18/2018/01/19/20 [id number] Ambulatory BMSBuilding:B [place] [address] [facility] Repository 11/23/2017/11/25/19 [id number] Ambulatory [address] Repository 09/29/2017 [id number] Ambulatory [facility] Repository 09/02/2017/09/07/19 [id number] Ambulatory [address] Repository 08/25/2017/08/29/19 [id number] Ambulatory [address] Repository 08/21/2017/08/21/19 [id number] Ambulatory [address] Repository PAYERS PAYERS ENCOUNTER GUARANTOR PAYER SUBSCRIBER SOURCE 07/12/2018 [place]AL[place] Primary NOT GIVENUNK [place] [id number] Insurance:SELF PAY [place], [place] Number: Effective Repository [id number]: [phone]) Date:2018-07-12 [phone] (HP) 07/10/2018 PARALEE Primary PARALEE Adebayo [id number] Insurance:MEDICARE MARTINDOB: Community SILVER PART A [id number] [place] Number: Repository [id number]: [phone] [id number] [phone] (HP) Date:2018-07-10 07/10/2018 Secondary PARALEE Adebayo Insurance:AETNAPolicy MARTINDOB: Community Number: [id number] Hospital [id number] Repository Date:[id number] [address] [place] [address]CM: 07/10/2018 Tertiary NOT GIVENUNK Adebayo Insurance:SELF PAY [facility] Number: Effective Repository Date:2018-07-10 02/16/2018 PARALEE Primary PARALEE [place] [id number] Insurance:MEDICARE MARTINDOB: Community SILVER PART A olic [id number] [place] Number: Repository [id number]: [phone] [id number] [phone] (HP) Date:2018-02-16 02/16/2018 Secondary PARALEE Adebayo Insurance:AETNAPolicy MARTINDOB: Community Number: [id number] Hospital [id number] Repository Date:[id number] [id number] [place] [address]TA: 02/16/2018 Tertiary NOT GIVENUNK [place] Insurance:SELF PAY [facility] Number: Effective Repository Date:2018-02-16 01/18/2018 PARALEE Primary PARALEE [place] [id number] Insurance:MEDICARE SANDEEB: Community SILVER PART A BPolicy [id number] Number: Repository [address]Tho: [phone] [id number] [phone] () Date:2017-07-25 01/18/2018 Secondary PARALEE [place] Insurance:AETNAPolicy [place]: [facility] Number: [id number] Hospital [id number] Repository Date:[id number] [facility] [id number] [place] [address]BV: 01/18/2018 Tertiary NOT GIVENUNK Adebayo Insurance:SELF PAY [facility] Number: Effective Repository Date:2017-09-21
== END ==
PROVIDERS: Nurse Practitioner Family; Family Provider Internal Medicine; PCP Internal Medicine; Referring Provider Internal Medicine Cardiovascular Disease; Visit Provider Internal Medicine Cardiovascular Disease
DX: E78.5 Hyperlipidemia, unspecified (principal)
CPT/HCPCS: 36415; 80061; 80076

== ENCOUNTER → 2019-01-08 10:47 | Outpatient (CLI) | payer MEDICARE, OTHER, SELFPAY ==
[2018-07-12 13:18] VITALS: BMI 31.8
[2019-01-08 12:18] LABS: AST(SGOT) 28 U/L (15-37); Alanine Aminotransfer ALT/SGPT 28 U/L (13-56); Albumin, Serum 3.5 g/dL (3.2-5.0); Alkaline Phosphatase 51 U/L (45-117); Bilirubin, Direct 0.16 mg/dL (0.00-0.30); Cholesterol 127 mg/dL (200); Globulin 3.5 g/dL (2.2-4.2); High Density Lipoprotein 40 mg/dL; Triglycerides 75 mg/dL; Very Low Density Lipoprotein 15 mg/dL (5-40)
== END ==
PROVIDERS: Family Provider Internal Medicine; PCP Internal Medicine; Referring Provider Nurse Practitioner Family; Visit Provider Nurse Practitioner Family
DX: E78.5 Hyperlipidemia, unspecified (principal)
CPT/HCPCS: 36415; 80061; 80076

== ENCOUNTER → 2019-07-16 11:38 | Outpatient (CLI) | payer MEDICARE, OTHER, SELFPAY ==
[2018-07-12 13:18] VITALS: BMI 31.8
[2019-07-16 12:57] LABS: AST(SGOT) 26 U/L (15-37); Alanine Aminotransfer ALT/SGPT 24 U/L (13-56); Albumin, Serum 3.9 g/dL (3.2-5.0); Alkaline Phosphatase 64 U/L (45-117); Bilirubin, Direct 0.13 mg/dL (0.00-0.30); Cholesterol 161 mg/dL (200); Globulin 3.8 g/dL (2.2-4.2); High Density Lipoprotein 47 mg/dL; Protein, Total 7.7 g/dL (6.4-8.2); Triglycerides 102 mg/dL; Very Low Density Lipoprotein 20 mg/dL (5-40)
== END ==
PROVIDERS: Family Provider Internal Medicine; PCP Internal Medicine; Referring Provider Internal Medicine Cardiovascular Disease; Visit Provider Internal Medicine Cardiovascular Disease
DX: E78.5 Hyperlipidemia, unspecified (principal)
CPT/HCPCS: 36415; 80061; 80076

== ENCOUNTER → 2019-08-05 06:21 | Outpatient (CLI) | payer MEDICARE, OTHER, SELFPAY ==
[2019-07-18 12:55] VITALS: BMI 33.6
--- NOTE | 2019-08-05 06:21 | ECHOD_ITS ---
Reason For Study: Dyspnea/SOB Procedure This was a 2D Doppler, Color Flow transthoracic echocardiogram. Technically difficult. Declined use of Definity due to patient having one kidney. Exam performed in department. Left Ventricle Normal LV size. Left ventricular systolic function is normal. The estimated ejection fraction is 65 %. Stage 1 diastolic dysfunction. No regional wall motion abnormalities noted. Right Ventricle Normal RV size. Normal systolic function. Atria Normal left atrium. Normal right atrium. Mitral Valve Moderate focal mitral valve calcification. Trivial eccentric mitral valve insufficiency. Tricuspid Valve Normal tricuspid valve. Mild tricuspid valve insufficiency. Aortic Valve Trisinus/trileaflet aortic valve. Pulmonic Valve The pulmonic valve is not well visualized. Great Vessels Normal aortic root. The pulmonary artery is normal size. Normal inferior vena cava. Pericardium/Pleural No pericardial effusion. MMode/2D Measurements & Calculations LVIDd: 4.2 cm IVSd: 1.0 cm Ao root diam: 3.6 cm LVIDs: 1.6 cm LVPWd: 1.1 cm LA dimension: 3.4 cm FS: 62.1 % LAV(MOD-bp): 45.8 ml LA A4 area: 12.8 cm2 LAV(MOD-bp) Indexed: 24.5 ml/m2 LAV(MOD-sp2): 43.3 ml LAV(MOD-sp4): 35.5 ml Time Measurements MV dec time: 0.27 sec Doppler Measurements & Calculations MV E max hector: 62.0 cm/sec Lat Peak E' Hector: 3.8 cm/sec Med Peak E' Hector: 3.9 cm/sec MV A max hector: 104.6 cm/sec E/E' lat: 16.3 E/E' med: 16.0 MV E/A: 0.59 MV V2 max: 121.3 cm/sec MV P1/2t max hector: 84.7 cm/sec Ao V2 max: 135.5 cm/sec MV max P.9 mmHg MV P1/2t: 90.5 msec Ao max P.3 mmHg MV V2 mean: 63.4 cm/sec MV dec slope: 274.2 cm/sec2 MV mean P.9 mmHg MVA(P1/2t): 2.4 cm2 MV V2 VTI: 28.2 cm LV V1 max: 143.0 cm/sec PA V2 max: 82.8 cm/sec TR max hector: 215.2 cm/sec LV V1 max P.2 mmHg TR max P.5 mmHg Interpretation Summary Normal LV size. Left ventricular systolic function is normal. The estimated ejection fraction is 65 %. Stage 1 diastolic dysfunction. Moderate focal mitral valve calcification. Ordering Physician: Martin Alvarado Referring Physician: Martin Alvarado Performed By: Renaldo Montilla RCS
--- NOTE | 2019-08-05 15:37 | STRESSREP ---
Stress Test Report Exercise myocardial perfusion stress test. 78-year-old lady with a history of chest pain. Stress protocol: Resting EKG demonstrates normal sinus rhythm with a rate of 75 bpm normal intervals are noted resting blood pressures 130/84 mmHg. The patient exercised according to regular Bill protocol for total duration of 3 minutes the maximum heart rate attained was 133 bpm which was 93% of maximum predicted heart rate the maximum workload was 4.6 metabolic equivalents. At rest there were no ST or T wave changes noted suggest ischemia peak exercise upsloping ST changes were noted with no meet the criteria for ischemia. The resting blood pressures 130/84 with a peak blood pressure 192/88 mmHg. Rate-pressure product was 25,000. Myocardial perfusion protocol. 14.4 mCi of technetium 99m sestamibi was injected at rest. The patient exercised for a total duration of 3 minutes at peak exercise 44.6 mCi of technetium 99m sestamibi was injected stress images were obtained stress and rest images were reconstructed and compared in the short axis vertical long horizontal long axis. Gated images were also obtained per Perfusion SPECT analysis: Review of the stress images demonstrate normal uptake of tracer noted in all areas of the myocardium. The resting images similar demonstrate normal uptake of tracer noted in all areas of the myocardium. No areas of reversibility or no suggest ischemia. Gated SPECT analysis: The gated ejection fraction is over 75%. Conclusion: Normal exercise myocardial perfusion stress test at a low workload. Preserved ejection fraction.
== END ==
PROVIDERS: Family Provider Internal Medicine; PCP Internal Medicine; Referring Provider Internal Medicine Cardiovascular Disease; Visit Provider Internal Medicine Cardiovascular Disease
DX: I25.10 Atherosclerotic heart disease of native coronary artery without angina pectoris (principal); R00.2 Palpitations; Z95.5 Presence of coronary angioplasty implant and graft
CPT/HCPCS: 78452; 93017; 93306; A9500; A4216

== ENCOUNTER 2021-03-25 11:56 | Inpatient (IN) | payer MEDICARE, OTHER, SELFPAY ==
[2020-07-21 09:41] VITALS: BMI 34.3
[2021-03-25] VITALS (26 sets, daily range): BP systolic 86–111; BP diastolic 50–89; PULSE 91–109; RESP 16–22; TEMP 36.2–37.1; O2SAT 94–100; BMI 29.0; BMI 29.9
--- NOTE | 2021-03-25 12:06 | RAD_ITS ---
STUDY: X-RAY CHEST REASON FOR EXAM: Female, 80 years old. Chest pain TECHNIQUE: Single AP portable view of the chest. COMPARISON: Comparison is made with prior study 10/10/2012. FINDINGS: EKG electrodes are seen. Stable elevation of the right hemidiaphragm. I suspect an infiltrate in the right upper lobe. Follow-up is recommended. There is no demonstrated pleural abnormality. Normal size heart. Normal mediastinum and roberto. Normal visualized pulmonary arteries. There is atherosclerotic calcification of the aortic arch with tortuosity. There are diffuse degenerative changes of the visualized thoracic spine. Normal visualized ribs, clavicles, and shoulders. There is no demonstrated abnormality of the visualized soft tissue structures of the upper abdomen. RAD/Chest 1 View (Portable) IMPRESSION: Findings suggestive of a right upper lobe infiltrate. Electronically Signed: Philip Avila MD at 12:54 EDT , Service support ,
--- NOTE | 2021-03-25 12:06 | EKG12_ITS ---
Test Reason : CP Blood Pressure : / mmHG Vent. Rate : 103 BPM Atrial Rate : 103 BPM P-R Int : 000 ms QRS Dur : 092 ms QT Int : 338 ms P-R-T Axes : 000 -10 036 degrees QTc Int : 442 ms Sinus VS Ectopic Atrial Rhythm/Tachycardia Septal infarct , age undetermined Abnormal ECG Confirmed by RAMANA SUGGS, JAMAL ([id number]), video editor DEMETRIUS MARTINEZ ([id number]) on 03/30/2021 8:43:20 AM Referred By: Confirmed By:JAMAL BOLES MD
--- NOTE | 2021-03-25 12:06 | ED.VIS.CHEST ---
HPI History of Present Illness Chief Complaint: Chest Pain Detail of Chief Complaint: Chest pain that started this morning when she woke up around 7 AM Informant: patient Onset/Context/Timing Associated Symptoms: Positive for Nausea and Vomiting Narrative Narrative: Patient presents to the emergency department complaint of chest pain that started around 7 AM. She describes nausea and small amount of emesis with it. She describes an aching that initially started in the right side of her chest but is now more retrosternal. Patient states she became sweaty and diaphoretic. EMS gave patient aspirin and Zofran. Patient has history of coronary artery disease with a stent placed in 2011. She denies recent travel or surgery. Patient has had both Covid vaccinations. Patient also apparently was diagnosed with an L4 lumbar fracture about 3 weeks ago. Prior Similar Symptoms: Yes CVD Risk Factors: Positive for Hypertension [facility] Medical History (Updated 03/25/21 @ 13:[address] 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) Home Medications aspirin 81 mg tablet,delayed release 81 mg PO DAILY 04/25/18 [History Last Taken Unknown] cholecalciferol (vitamin D3) 1,250 mcg (50,000 unit) capsule 50,000 unit PO QWEEK 04/25/18 [History Last Taken Unknown] oxybutynin chloride 5 mg tablet,extended release 24 hr 5 mg PO DAILY 04/25/18 [History Last Taken Unknown] nitroglycerin 0.4 mg sublingual tablet 0.4 mg SUBLINGUAL Q5-15M #25 tab 07/18/19 [Rx Last Taken Unknown] atorvastatin 40 mg tablet 40 mg PO QHS #90 tab 07/24/19 [Rx Last Taken Unknown] lisinopril 5 mg tablet 5 mg PO DAILY tab 07/21/20 [History Last Taken Unknown] metoprolol succinate 50 mg tablet,extended release 24 hr 50 mg PO DAILY #90 tab 08/11/20 [Rx Last Taken Unknown] tramadol 50 mg PO Q4H PRN 03/25/21 [History Last Taken Unknown] Allergy/AdvReac Type Severity Reaction Status Date / Time No Known Allergies Allergy Verified 03/25/21 12:20 Family History Mother CAD (coronary artery disease) Myocardial infarction Brother CAD (coronary artery disease) Myocardial infarction Brother Cancer Sister Heart disease Surgical History History of coronary artery stent placement (11/22/11) Social History (Updated 07/21/20 @ 13:[address] Martin Alvarado MD) Smoking Status: Never smoker ROS ROS ED Review of Systems ROS Unobtainable: other Constitutional Constitutional ED: Reports lethargy; Denies chills, fever(s), sweats or weight loss Eyes Eyes: Denies blurry vision, change in vision or diplopia ENT ENT ED: Denies rhinorrhea or sore throat Cardiovascular Cardiovascular: Reports chest pain; Denies orthopnea or racing heartbeat Respiratory/Chest Respiratory/Chest: Reports dyspnea and dyspnea on exertion; Denies cough, orthopnea or sputum Gastrointestinal Gastrointestinal: Reports nausea and vomiting; Denies abdominal pain or diarrhea Genitourinary Genitourinary ED: Denies dysuria, hematuria or urinary frequency Musculoskeletal Musculoskeletal: Denies arthralgias, back pain, myalgias or neck pain Integumentary Denies abscess, Abrasions or rash Neurologic Neurologic: Denies headache(s) or weakness Psychiatric Psychiatric: Denies anxiety, depression or suicidal thoughts Endocrine Endocrinology: Denies polydipsia, polyphagia or polyuria Hematologic/Lymphatic Hematologic/Lymphatic: Denies easy bleeding, easy bruising or lymphadenopathy Allergic/Immunologic Allergic/Immunologic ED: Denies mouth swelling, tongue swelling or urticaria EXAM Physical Exam Const Vital Signs: 03/25/21 11:58 03/25/21 12:03 03/25/21 12:06 Temperature 97.8 F Temperature Source Oral Pulse Rate 106 H Respiratory Rate 17 Respiratory Effort Normal Non-Labored Blood Pressure 108/72 Blood Pressure Mean 84 Pulse Ox 97 Oxygen Delivery Method Room Air Room Air 03/25/21 12:21 03/25/21 12:26 03/25/21 13:00 Temperature Temperature Source Pulse Rate 103 H 95 99 Respiratory Rate 18 19 H Respiratory Effort Blood Pressure 111/67 90/56 L 104/55 L Blood Pressure Mean 67 71 Pulse Ox 98 100 Oxygen Delivery Method Room Air Room Air Positive well nourished and well developed General Appearance ED: well developed and NAD HEENT Reports TM's clear and moist mucous membranes normocephalic and atraumatic; Negative for trauma or tenderness Tympanic Membrane ED: Yes TM's clear Eyes PERRL and EOMs intact bilaterally General Eye ED: Negative for pale conjunctiva or scleral icterus Neck no lymphadenopathy, supple and no JVD General: Negative for tenderness Chest Wall inspection of chest normal and palpation of chest normal Chest: Negative for tenderness Resp normal respiratory effort and clear to auscultation bilaterally Effort and Inspection: Negative for respiratory distress or pain with movement Auscultation: Negative for rhonchi, wheezes or diminished lung sounds Cardio regular rate, regular rhythm, S1 normal heart sound, S2 normal heart sound and no murmurs Peripheral Pulses: pulses 2+ throughout GI normal to inspection, nondistended, normoactive bowel sounds, soft to palpation, non-tender, non-distended and no masses Back/Spine no CVA tenderness and no thoracic nor lumbar tenderness Extremity normal to inspection General Extremety ED: Negative for edema General Extremity: Negative for edema Neuro oriented x3, CN's II-XII intact bilaterally, no sensory deficits noted and gait normal Sensorium / Orientation: awake, alert, oriented to person, oriented to place and oriented to time Motor Exam: strength 5/5 throughout and strength abnormal Psych mental status grossly normal Skin no rashes or lesions noted and no wounds Heart Score History: Moderately Suspicious ECG: Nonspecific Repolarization Age: >/= 65 years Risk Factors: >/= 3 Risk Factors or History of CAD Troponin: >/=3 x Normal Limit Score: 8 MDM MDM MDM Narrative Medical decision making narrative: Initially patient noted to have minimal elevation of the ST segment in V1 and V2 with Q waves present and when compared with prior EKG I was just slightly increased elevation than prior. Troponin did come back elevated and case discussed with trolley cleaner on-call. Patient will be evaluated in the ER by cardiology for acute coronary syndrome. Patient's D-dimer was minimally elevated at 0.8 just outside of correction for age however my suspicion is low for PE and as I feel patient likely having acute coronary syndrome. Patient seen by trolley cleaner and will be taken to the [facility]. Case discussed with hospitalist who will also evaluate patient for admission Lab Data Labs: Laboratory Results - last 24 hr 03/25/21 03/25/21 03/25/21 12:03 12:03 12:15 WBC 9.1 RBC 4.28 Hgb 15.1 H Hct 45.0 MCV 105.1 H MCH 35.3 H MCHC 33.6 RDW Std Deviation 49.7 H RDW Coeff of [place] 12.8 Plt Count 264 MPV 10.4 Immature Gran % (Auto) 0.600 Neut % (Auto) 75.0 H Lymph % (Auto) 15.6 L [place] % (Auto) 6.2 Eos % (Auto) 2.3 Baso % (Auto) 0.3 Absolute Neuts (auto) 6.8 Absolute Lymphs (auto) 1.41 Nucleated RBC % 0 D-Dimer Quant (PE/DVT) 0.80 H* Sodium 139 Potassium 3.8 Chloride 104 Carbon Dioxide 23.0 Anion Gap 12 BUN 21 H Creatinine 0.68 Estim Creat Clear Calc 41.05 Est GFR (MDRD) Af Amer 108 Est GFR (MDRD) Non-Af 89 BUN/Creatinine Ratio 31.1 H Glucose 140 H Calcium 9.6 Troponin I High Sens 1360.4 H* Radiography Chest X-Ray - ED: 1 View Diagnostic Testing: Radiology Impression Chest X-Ray 03/25/21 12:06 IMPRESSION: Findings suggestive of a right upper lobe infiltrate. Electronically Signed: Philip Avila MD at 12:54 EDT , Service support , 1 view chest x-ray obtained interpreted by myself as no acute disease process. Radiology in agreement. EKG Initial EKG: Attestation: I personally reviewed and interpreted this EKG as follows: Comments: Sinus rhythm with a ventricular rate of 103 bpm with old septal infarct noted. Prior: Changed Discharge Plan Dx/Rx/DC Orders Clinical Impression: Chest pain, ACS (acute coronary syndrome), Non-ST elevated myocardial infarction Disposition Disposition: Acute Care Hospital [facility]
[2021-03-25 12:14] LABS: Absolute Lymphocyte Count 1.41 X10^3/uL (0.83-4.51); Absolute Neutrophil Count 6.8 X10^3/uL (2.0-7.7); Basophil# 0.03 X10^3/uL; Basophil% 0.3 % (0-1); Eosinophil# 0.21 X10^3/uL; Eosinophils% 2.3 % (0-5); Hemoglobin 15.1 g/dL (12.0-15.0); Lymphocyte # 1.41 X10^3/ul (0.83-4.51); Lymphocyte % 15.6 % (19-41); Mean Corp Hgb Conc 33.6 g/dL (32-36); Mean Corpuscular Hgb 35.3 pg (27.0-32.0); Mean Corpuscular Volume 105.1 fL (81-99); Mean Platelet Vol. 10.4 fl (6.2-12.0); Monocyte# 0.56 X10^3/uL; Monocyte% 6.2 % (0-10); NRBC Flagged by Analyzer 0 % (0-5); Neutrophil # 6.79 X10^3/uL (2.7-7.7); Platelet Count 264 K/mm3 (150-450); RBC Distribution Width CV 12.8 % (11.6-14.6); RBC Distribution Width SD 49.7 fl (35.1-43.9); Red Blood Count 4.28 M/mm3 (4.2-5.4); White Blood Count 9.1 K/mm3 (4.4-11.0)
[2021-03-25] MEDS: 0.9% Normal Saline 1,000 ML 150 ML IV (12:21)
[2021-03-25] MEDS: Nitroglycerin SL (ED/IMG/CATH) 0.4 MG TABLET SL (12:21)
[2021-03-25 12:43] LABS: Anion Gap 12 (5-15); BUN 21 mg/dL (7-18); BUN/Creat Ratio 31.1 RATIO (10-20); Calcium,Total 9.6 mg/dL (8.5-10.1); Chloride 104 mmol/L (98-107); Creatinine, Serum 0.68 mg/dL (0.55-1.02); EST Glomerular Filtration Rate 89 mL/min (>60); Est Glom Filt Rate - Afr Amer 108 mL/min (>60); Estimated Creatinine Clearance 41.05 ml/min; Potassium 3.8 mmol/L (3.5-5.1); Sodium Level 139 mmol/L (136-145); Troponin-I HS 1360.4 pg/mL (3.0-53.7)
[2021-03-25 12:44] LABS: Glucose 140 mg/dL (74-106)
[2021-03-25] MEDS: Heparin Injection (Vial) 5,000 UNIT/ML VIAL 4000 UNIT IV (13:15)
--- NOTE | 2021-03-25 13:23 | HP.PCM.HOS_ITS ---
HPI - General General Date of Admission: 03/25/21 Date of Service: 03/25/21 Chief Complaint: Chest pain, N/V/Diaphoresis HPI Narrative The patient is a 80 y/o F w/ PMHx: CAD s/p PCI, HTN, HLD, Recent L4 fracture ~3 weeks prior who presents to the [facility] ED on 03/25/21 with history of onset chest discomfort upon awakening at approximately 7 AM described as an aching initially on the right side primarily transitioning to retrosternal with associated nausea, emesis, diaphoresis with associated dyspnea prompting eventual ED presentation. Patient notes that her discomfort was independent of activity and occurred both at rest and when she was moving. She rated her discomfort upon initial evaluation with transition to cardiac catheterization lab 6 out of 10 in severity, primarily right side of the chest and retrosternal. She did report that prior it had been 10 out of 10. Patient with no recent specific cough, fever, chills, dyspnea complaints. Patient has been COVID vaccinated with series. Patient upon transition to cardiac catheterization table notes ongoing lumbar back pain and is unable to lay flat. Work-up in the ED included T7.8, heart rate initially 106 with repeat 95, BP initially 108/72, decreasing to 90/56 with 104/55 prior to transition out of emergency room, respiratory rate 17, 97% on room air, CBC with WBC 9.1, hemoglobin 15.1, platelet 264 without marked shift, D-dimer 0.80, BMP with BUN/creatinine 21/0.68, glucose 140, high- sensitivity troponin 1360.4, chest x-ray with suspected infiltrate right upper lobe, EKG with minimal elevation ST segment in V1 and V2 with Q waves present compared to prior EKG. In the ED patient ministered heparin bolus, aspirin, normal saline as well as nitroglycerin. Cardiology consulted and discussed case with plan transition to cardiac catheterization lab. [facility] Medical History (Updated 03/25/21 @ 16:[address] 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) Home Medications aspirin 81 mg tablet,delayed release 81 mg PO DAILY 04/25/18 [History Last Taken 03/24/21] nitroglycerin 0.4 mg sublingual tablet 0.4 mg SUBLINGUAL Q5-15M #25 tab 07/18/19 [Rx Last Taken Unknown] atorvastatin 40 mg tablet 40 mg PO QHS #90 tab 07/24/19 [Rx Last Taken 03/23/21] metoprolol succinate 50 mg tablet,extended release 24 hr 50 mg PO DAILY #90 tab 08/11/20 [Rx Last Taken 03/24/21] cholecalciferol (vitamin D3) 125 mcg PO DAILY 03/25/21 [History Last Taken 03/24/21] clopidogrel 75 mg PO DAILY 03/25/21 [History Last Taken 03/24/21] lisinopril 10 mg PO DAILY 03/25/21 [History Last Taken 03/24/21] oxybutynin chloride 10 mg PO DAILY 03/25/21 [History Last Taken 03/24/21] tramadol 50 mg PO Q4H PRN 03/25/21 [History Last Taken 03/25/21 10:30] Allergy/AdvReac Type Severity Reaction Status Date / Time No Known Allergies Allergy Verified 03/25/21 12:20 Family History Mother CAD (coronary artery disease) Myocardial infarction Brother CAD (coronary artery disease) Myocardial infarction Brother Cancer Sister Heart disease other (Unknown paternal family history.) Surgical History (Updated 03/25/21 @ 16:[address] Tsering Mckeon MD) History of bilateral tubal ligation History of coronary artery stent placement (11/22/11) Social History (Updated 03/25/21 @ 16:[address] Tsering Mckeon MD) household members: spouse Smoking Status: Never smoker alcohol intake: never substance use type: does not use ROS ROS Narrative Admission Review of Systems: CONSTITUTIONAL: No weight loss, fever, chills, + weakness or fatigue. HEENT: Eyes: No visual loss, blurred vision, double vision or yellow sclerae. Ears, Nose, Throat: No hearing loss, sneezing, congestion, runny nose or sore throat. SKIN: No rash or itching, lesions, wounds. CARDIOVASCULAR: + chest pain, chest pressure or chest discomfort, No palpitations, edema, orthopnea, syncopal events. RESPIRATORY: No shortness of breath, cough or sputum, wheezing, hemoptysis. GASTROINTESTINAL: + anorexia, nausea, vomiting, No diarrhea, abdominal pain, melena, BRBPR. GENITOURINARY: No dysuria, frequency, urgency or retention. NEUROLOGICAL: No headache, dizziness, syncope, paralysis, ataxia, numbness or tingling in the extremities, focal weakness, change in bowel or bladder control, seizure. MUSCULOSKELETAL: + muscle, back pain, joint pain or stiffness. HEMATOLOGIC: No anemia, bleeding or bruising. LYMPHATICS: No enlarged nodes. No history of splenectomy. PSYCHIATRIC: No history of depression or anxiety. ENDOCRINOLOGIC: No reports of sweating, cold or heat intolerance. No polyuria or polydipsia. ALLERGIES: No history of asthma, hives, eczema or rhinitis. Vital Signs Vital Signs Vital Signs: 03/25/21 11:58 03/25/21 12:03 03/25/21 12:06 Temperature 97.8 F Temperature Source Oral Pulse Rate 106 H Respiratory Rate 17 Respiratory Effort Normal Non-Labored Blood Pressure 108/72 Blood Pressure Mean 84 Pulse Ox 97 Oxygen Delivery Method Room Air Room Air 03/25/21 12:21 03/25/21 12:26 03/25/21 13:00 Temperature Temperature Source Pulse Rate 103 H 95 99 Respiratory Rate 18 19 H Respiratory Effort Blood Pressure 111/67 90/56 L 104/55 L Blood Pressure Mean 67 71 Pulse Ox 98 100 Oxygen Delivery Method Room Air Room Air Weight Weight: 176 lb 12.972 oz Body Mass Index (BMI) 29.0 Physical Exam Narrative Physical Examination: General: Awake, alert, oriented x 3 and cooperative, seated upright on the cardiac catheterization table, notes chest discomfort still right-sided currently, 6 out of 10. Skin: Mildly flushed l color, normal turgor, no icterus, no cyanosis. HEENT: AT/NC, EOMI, PERRLA, mildly dry MM, no carotid bruits or JVD noted. Lungs: CTA bilaterally, moderate effort, mild decrease BL bases, no rales, ronchi or wheezing. Heart: Regular rate and rhythm; no gallop, rub audible, + SM. Abdomen: Soft, overweight, NTTP, ND, normal BS, no HSM. Extremities: No cyanosis, clubbing, or edema. Neurological: Patient awake, alert, oriented as noted, cognitive function intact; pupils equally reactive to light and accommodation, cranial nerves II- XII grossly normal, moving all 4 extremities although some difficulty with certain movements given history of recent L4 lumbar fracture, strength moderately to severely globally decreased given acute presentation and recent fracture. Psychiatric: Affect appears uncomfortable, no acute evidence of depressive or anxiety feelings. Results Lab / Micro Data Result Diagrams: 03/25/21 12:03 03/25/21 12:03 Labs: Laboratory Results - last 24 hr 03/25/21 12:03: WBC 9.1, RBC 4.28, Hgb 15.1 H, Hct 45.0, MCV 105.1 H, MCH 35.3 H , MCHC 33.6, RDW Std Deviation 49.7 H, RDW Coeff of Juanp[place] 12.8, Plt Count 264, MPV 10.4, Immature Gran % (Auto) 0.600, Neut % (Auto) 75.0 H, Lymph % (Auto) 15.6 L, [place] % (Auto) 6.2, Eos % (Auto) 2.3, Baso % (Auto) 0.3, Absolute Neuts (auto) 6.8, Absolute Lymphs (auto) 1.41, Nucleated RBC % 0 03/25/21 12:03: Sodium 139, Potassium 3.8, Chloride 104, Carbon Dioxide 23.0, Anion Gap 12, BUN 21 H, Creatinine 0.68, Estim Creat Clear Calc 41.05, Est GFR (MDRD) Af Amer 108, Est GFR (MDRD) Non-Af 89, BUN/Creatinine Ratio 31.1 H, Glucose 140 H, Calcium 9.6, Troponin I High Sens 1360.4 H* 03/25/21 12:15: D-Dimer Quant (PE/DVT) 0.80 H* Radiology Impression Chest X-Ray 03/25/21 12:06 IMPRESSION: Findings suggestive of a right upper lobe infiltrate. Electronically Signed: Philip Avila MD at 12:54 EDT , Service support , Assessment & Plan Assessment/Plan (1) Non-ST elevated myocardial infarction: PLAN: The patient is a 80 y/o F w/ PMHx: CAD s/p PCI, HTN, HLD, Recent L4 fracture ~3 weeks prior who presents to the [facility] ED on 03/25/21 with history of onset chest discomfort upon awakening at approximately 7 AM described as an aching initially on the right side primarily transitioning to retrosternal with associated nausea, emesis, diaphoresis with associated dyspnea prompting e ventual ED presentation. 1. Chest Pain w/ Acute NSTEMI: ED evaluation w/ troponin 1360.4, chest x-ray with suspected infiltrate right upper lobe, EKG with minimal elevation ST segment in V1 and V2 with Q waves present compared to prior EKG. Will admit to PCU following cardiac catheterization pending intervention needs, maintain on a monitored bed, continue serial cardiac enzymes and EKGs. Obtain magnesium level upon admission. Continue medical management w/ asa, plavix, BB, statin, ACEI w/ AM FLP. Cardiology consulted, pending cardiac catheterization. ASA, NG, morphine. 2. Questionable RUL PNA, ? Community Acquired Pneumonia, LOW SUSPICION: CXR in the ED w/ ? RUL PNA. Admission CBC w/ no marked WBC elevation of L shift. Will maintain on oxygen with wean as tolerated to room air, PRN albuterol, hold on abx with pending procalcitonin. If notable or onset fever, WBC elevation with L shift will initiate abx therapy and obtain sputum culture and urine antigens. 3. Hyperglycemia: Admission glucose 140, possibly stress response, will obtain hemoglobin A1c to be cautious. 4. CAD: Status post prior remote PCI, continue cardiac evaluation as noted above, continue medical therapy with aspirin, plavix, statin, metoprolol, lisinopril therapy. 5. Hypertension: Continue home regimen including metoprolol, lisinopril with hold parameters, PRN hydralazine. 6. Hyperlipidemia: Continue home statin regimen. AM FLP. 7. Recent L4 lumbar fracture: Patient denies any history of trauma or injury, ongoing lumbar back pain, note she was postop intervention in the coming weeks, encourage continued outpatient follow-up, frequent positional changes, as needed pain regimen. Will maintain additionally on fall precautions. 8. DVT prophylaxis: SCDs, Lovenox to start in AM. 9. CODE status: Patient KAMERON is her daughter and living will is currently in place. Discussed CODE status at length including difference between FULL code, DNR-CCA and DNR-CC status. Following discussions about the differences in these status, requested Full Code status. Advanced Care Planning Face to Face Time: 16 minutes. Charges/Coding Visit Charges Inpatient E&M: 52696 Init Hosp L3 Procedures Hospitalists Procedures: 73415 Advncd Care Plan 30 Min
--- NOTE | 2021-03-25 13:29 | NURSING ---
DR CLARK FOR DR YE
--- NOTE | 2021-03-25 13:34 | NURSING ---
CLOTH BALE HEADER THEN PCU WHTE ACS, NSTEMI
[2021-03-25 14:15] LABS: Magnesium 1.8 mg/dL (1.6-2.6)
[2021-03-25 15:13] LABS: Procalcitonin < 0.04 ng/mL (0.00-0.09)
--- NOTE | 2021-03-25 16:00 | PCM.CONS.C ---
Assessment & Plan Assessment/Plan (1) Takotsubo cardiomyopathy: PLAN: Patient's blood pressure is on the low side. When she is able to tolerate we should start her on a beta-peter and then an ELINA inhibitor. She does have intracavitary pressure gradient in the LV likely secondary to the Takotsubo cardiomyopathy itself. An echo in 2019 did not report any HOCM. (2) Essential (primary) hypertension: (3) Chest pain: QUALIFIERS: Chest pain type: unspecified Qualified Code(s): R07.9 - Chest pain, unspecified PLAN: Likely secondary to Takotsubo cardiomyopathy. (4) History of coronary artery stent placement: HPI Consult Data Date of Consult: 03/25/21 HPI Narrative Reason for Consultation: Chest pain, elevated troponin HPI Narrative: BREANNA JACINTO, is a 80 F who presents with chest pain associated with nausea and vomiting. Patient was given nitroglycerin in the emergency room which dropped her pressure significantly. Patient's troponin was also elevated. Patient was evaluated in the ER and then brought to the [facility] where she underwent coronary angiography. This revealed wall motion abnormalities consistent with Takotsubo cardiomyopathy. She does have a 60 to 70% stenosis in the proximal LAD. FFR was done and was 0.89 consistent with stenoses that can be treated medically. [facility] Medical History (Updated 03/25/21 @ 16:[address] 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) Home Medications aspirin 81 mg tablet,delayed release 81 mg PO DAILY 04/25/18 [History Last Taken 03/24/21] nitroglycerin 0.4 mg sublingual tablet 0.4 mg SUBLINGUAL Q5-15M #25 tab 07/18/19 [Rx Last Taken Unknown] atorvastatin 40 mg tablet 40 mg PO QHS #90 tab 07/24/19 [Rx Last Taken 03/23/21] metoprolol succinate 50 mg tablet,extended release 24 hr 50 mg PO DAILY #90 tab 08/11/20 [Rx Last Taken 03/24/21] cholecalciferol (vitamin D3) 125 mcg PO DAILY 03/25/21 [History Last Taken 03/24/21] clopidogrel 75 mg PO DAILY 03/25/21 [History Last Taken 03/24/21] lisinopril 10 mg PO DAILY 03/25/21 [History Last Taken 03/24/21] oxybutynin chloride 10 mg PO DAILY 03/25/21 [History Last Taken 03/24/21] tramadol 50 mg PO Q4H PRN 03/25/21 [History Last Taken 03/25/21 10:30] Allergy/AdvReac Type Severity Reaction Status Date / Time No Known Allergies Allergy Verified 03/25/21 12:20 Family History Mother CAD (coronary artery disease) Myocardial infarction Brother CAD (coronary artery disease) Myocardial infarction Brother Cancer Sister Heart disease Surgical History History of coronary artery stent placement (11/22/11) Social History (Updated 07/21/20 @ 13:[address] Martin Alvarado MD) Smoking Status: Never smoker Physical Exam Const alert and oriented x3 Orientation / Consciousness: awake HEENT normocephalic Eyes no scleral icterus Resp normal respiratory effort Cardio regular rate Skin no rashes or lesions noted Neuro oriented x3 Charges/Coding Visit Charges Inpatient E&M: 54362 Init Hosp L2 Objective Data Vital Signs: Vital Signs Temp Pulse Resp BP Pulse Ox 98.7 F 103 H 16 109/50 L 95 03/25/21 13:31 03/25/21 13:31 03/25/21 13:31 03/25/21 13:31 03/25/21 13:31 Oxygen Delivery Method Room Air Weight: 176 lb 12.972 oz Body Mass Index (BMI) 29.0 Intake & Output: Intake and Output for Last 24 Hours 03/23/21 03/24/21 03/25/21 23:59 23:59 23:59 Intake Total 570 / 570 Balance 570 / 570 Lab / Micro Data Result Diagrams: 03/25/21 12:03 03/25/21 12:03 Labs: Laboratory Results - last 24 hr 03/25/21 12:03: WBC 9.1, RBC 4.28, Hgb 15.1 H, Hct 45.0, MCV 105.1 H, MCH 35.3 H, MCHC 33.6, RDW Std Deviation 49.7 H, RDW Coeff of Juanpablo 12.8, Plt Count 264, MPV 10.4, Immature Gran % (Auto) 0.600, Neut % (Auto) 75.0 H, Lymph % (Auto) 15.6 L, [place] % (Auto) 6.2, Eos % (Auto) 2.3, Baso % (Auto) 0.3, Absolute Neuts (auto) 6.8, Absolute Lymphs (auto) 1.41, Nucleated RBC % 0 03/25/21 12:03: Sodium 139, Potassium 3.8, Chloride 104, Carbon Dioxide 23.0, Anion Gap 12, BUN 21 H, Creatinine 0.68, Estim Creat Clear Calc 41.05, Est GFR (MDRD) Af Amer 108, Est GFR (MDRD) Non-Af 89, BUN/Creatinine Ratio 31.1 H, Glucose 140 H, Calcium 9.6, Troponin I High Sens 1360.4 H* 03/25/21 12:03: Magnesium 1.8 03/25/21 12:03: Procalcitonin < 0.04 03/25/21 12:15: D-Dimer Quant (PE/DVT) 0.80 H* Cardiology Labs/Tests 03/25/21 12:03: WBC 9.1, RBC 4.28, Hgb 15.1 H, Hct 45.0, MCV 105.1 H, MCH 35.3 H, MCHC 33.6, Plt Count 264, MPV 10.4, Immature Gran % (Auto) 0.600, Neut % (Auto) 75.0 H, Lymph % (Auto) 15.6 L, [place] % (Auto) 6.2, Eos % (Auto) 2.3, Baso % (Auto) 0.3, Absolute Neuts (auto) 6.8, Nucleated RBC % 0 03/25/21 12:03: Sodium 139, Potassium 3.8, Chloride 104, Carbon Dioxide 23.0, Anion Gap 12, BUN 21 H, Creatinine 0.68, Est GFR (MDRD) Af Amer 108, Est GFR (MDRD) Non-Af 89, BUN/Creatinine Ratio 31.1 H, Glucose 140 H, Calcium 9.6 03/25/21 12:03: Magnesium 1.8 03/25/21 12:15: D-Dimer Quant (PE/DVT) 0.80 H* Rhythm: EKG: ECHO: Stress Test: Cardiac Cath: PCI: CT Surgery: Holter monitor: EPS: PPM: CXR: Chest CT Scan: Radiography Diagnostic Testing: Radiology Impression Chest X-Ray 03/25/21 12:06 IMPRESSION: Findings suggestive of a right upper lobe infiltrate. Electronically Signed: Philip Avila MD at 12:54 EDT , Service support ,
--- NOTE | 2021-03-25 16:27 | CL.D_ITS ---
Patient Name: BREANNA JACINTO Study Date: 03/25/2021 Performing: Pavan Sarah MD Ht: 65 inches 166 cm : 1940 Wt: 176.6 lbs 80 kg Age: 80 Gender: female BSA: 1.88 PROCEDURE(S) PERFORMED BV17-HXW/COR/LV PL17-[facility], CORONARY OR GRAFT, INITIAL VESSEL CLINICAL PROFILE AND INDICATIONS Indications: ACS <= 24 hrs Heart Failure: None Stress/Imaging Stress/Image Study Performed: No CAD Presentations: Non-STEMI. Symptom onset Date/Time: 03/25/21 Time Not Available CONCLUSIONS CAD as described. FFR in the LAD is 0.89. 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 No significant or M R. Intracavitary gradient in the LV likely from the wall motion abnormalities related to takostubo ca rdiomyopathy RECOMMENDATIONS Medical treatment for CAD, takotsubo cardiomyopathy DESCRIPTION OF PROCEDURE The patient arrived to the procedure lab. The risks and benefits of the procedure as well as a full d escription of our services here and current unavailability of surgical backup were fully explained to the patient and/or their significant other prior to the catheterization. The Timeout was completed, verifying the correct patient and procedure. The patient's procedural site was prepped and draped in the usual fashion. Local anesthetic was given subcutaneously to right radial region with Lidocaine 2% . Local anesthetic was given subcutaneously to right groin region with Lidocaine 2%. Using a modified Seldinger technique, and ultrasound guidance,arterial access was obtained via the right ulnar artery , a 6Fr sheath was inserted., arterial access was obtained via the right femoral artery, a 6Fr sheath was inserted. Left Coronary Artery selective angiography was performed in multiple views using a 5 Fr. JL3.5 catheter. Left Ventriculography was performed in LUGO projection using a 5 Fr. JR 4.0. LV to AO pullback pressures were then recorded. Right Coronary Artery selective angiography was then performed in multiple views using a 5 Fr. JR 4 catheter. Left Coronary Artery selective angiogra phy was performed in multiple views using a 6 Fr. JL4 catheter.Contrast was injected through the vaac th and the Right Iliac and Femoral artery were assessed for possible closure device.The arterial vaca th was pulled and a TR Band was applied for hemostasis 7cc air inserted. The femoral arterial sheath was sutured in place and capped CORONARY ANGIOGRAPHY DOMINANCE: Right Dominant LEFT HEART ASSESSMENT Left Ventricular Ejection Fraction: by LV Gram 35 % Abnormal LV wall motion. Base of the LV is hypokinetic. Rest of the LV is severely hypokinetic to snow netic. LEFT MAIN: Mild luminal irregularities LEFT ANTERIOR DESCENDING ARTERY: PROX LAD: 60 % Stenosis. FFR in the LAD was 0.89 MID LAD: Previously placed stent is patent CIRCUMFLEX ARTERY: Mild luminal irregularities RIGHT CORONARY ARTERY: OSTIAL RCA: 20 % Stenosis VALVE FINDINGS: No Aortic Valve Stenosis. Intracavitary gradient of >40mHg noted in the LV likely due to the wall mot ion abnormalities from Takotsubo CM No Mitral Insufficency COMPLICATIONS No Complications PROCEDURE MEDICATIONS Oxygen: 2 L/min via nasal cannula Adenosine drip for FFR 22 ml IV @ 03/25/2021 15:00:57 Heparin 3000 unit(s) IV 03/25/2021 14:55:25 SUMMARY OF HEMODYNAMIC DATA Time AIR REST ECG 13:55:07 AO 76/58 (66) SA 14:35:01 LV 161/0, 26 14:40:57 LV 165/0, 26 14:41:04 LVA 86/6, 26 14:41:56 LV 156/3, 27 14:42:20 LVp 159/4, 26 14:42:28 AOp 94/54 (68) 14:42:33 Signed By Pavan Sarah MD On 03/25/2021 16:26:32 Pavan Sarah MD
--- NOTE | 2021-03-25 19:52 | ECHOCS_ITS ---
Reason For Study: NSTEMI Procedure This was a 2D Doppler, Color Flow transthoracic echocardiogram. Technically difficult study. Patient scanned sitting upright due to back discomfort. Contrast injection performed. The study was technically difficult. Contrast injection was performed. Exam performed portable in patient room. Left Ventricle Normal LV size. Moderately severe segmental systolic dysfunction (see wall motion). The estimated ejection fraction is 35 %. Mid-Anterior : Akinetic. Mid-Lateral : Akinetic. Mid-Posterior: Akinetic. Mid-Inferior: Akinetic. Mid-inferoseptal : Akinetic. Mid-anteroseptal : Akinetic. [place] : Akinetic. Right Ventricle Normal RV size. Normal systolic function. Atria The left atrium is mildly enlarged. Normal right atrium. No doppler evidence for ASD. Mitral Valve There is mild mitral annular calcification. Extension the mitral annular calcification onto the base of the posterior mitral valve leaflet. Mild (1+) mitral valve insufficiency. Tricuspid Valve Normal tricuspid valve. Mild tricuspid valve insufficiency. Right ventricular systolic pressure estimated to be 33 mmHg. Aortic Valve Trisinus/trileaflet aortic valve. Mild focal aortic valve calcification. Pulmonic Valve The pulmonic valve is not well visualized. Great Vessels Normal sized aortic root. Pericardium/Pleural No pericardial effusion. Medication Diluted definity 5ml given slow IV push to enhance endocardial definition. MMode/2D Measurements & Calculations Ao root diam: 3.5 cm LAV(MOD-bp): 53.2 ml LVAd ap4: 29.6 cm2 LAV(MOD-bp) Indexed: 28.1 ml/m2 LVLd ap4: 7.7 cm LAV(MOD-sp2): 40.9 ml EDV(MOD-sp4): 93.6 ml LAV(MOD-sp4): 50.6 ml EDV(sp4-el): 96.1 ml LVAs ap4: 21.4 cm2 LVLs ap4: 6.4 cm ESV(MOD-sp4): 61.1 ml ESV(sp4-el): 60.5 ml EF(MOD-sp4): 34.7 % EF(sp4-el): 37.1 % SV(MOD-sp4): 32.5 ml SV(sp4-el): 35.7 ml LA A4 area: 16.1 cm2 Time Measurements MV dec time: 0.11 sec Doppler Measurements & Calculations MV E max hector: 109.7 cm/sec Lat Peak E' Hector: 10.2 cm/sec Med Peak E' Hector: 13.4 cm/sec MV A max hector: 47.2 cm/sec E/E' lat: 10.8 E/E' med: 8.2 MV E/A: 2.3 MV V2 max: 111.3 cm/sec MV P1/2t max hector: 110.7 cm/sec Ao V2 max: 220.9 cm/sec MV max P.0 mmHg MV P1/2t: 41.1 msec Ao max P.5 mmHg MV V2 mean: 54.5 cm/sec MV dec slope: 789.7 cm/sec2 MV mean P.5 mmHg MVA(P1/2t): 5.4 cm2 MV V2 VTI: 17.2 cm PA V2 max: 109.1 cm/sec TR max hector: 272.7 cm/sec TR max P.7 mmHg ECHO/Echo Complete W/ Contrast Interpretation Summary The study was technically difficult. Contrast injection was performed. Moderately severe segmental systolic dysfunction (see wall motion). The estimated ejection fraction is 35 %. The left atrium is mildly enlarged. There is mild mitral annular calcification. Extension the mitral annular calcification onto the base of the posterior wicho l valve leaflet. Mild (1+) mitral valve insufficiency. Mild tricuspid valve insufficiency. Mild focal aortic valve calcification. Right ventricular systolic pressure estimated to be 33 mmHg. Transmitral diastolic flow velocities suggest diastolic dysfunction (pseudonorm al pattern). 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 Ordering Physician: Tsering Mckeon Referring Physician: Juan J Hi M.D. Performed By: Renaldo Montilla RCS
[2021-03-25 20:39] LABS: Hemoglobin A1c 5.7 % (3.8-5.6)
[2021-03-25] MEDS: oxyCODONE 5 MG Tablet PO (20:45)
[2021-03-25 21:01] LABS: Troponin-I HS 4362.6 pg/mL (3.0-53.7)
[2021-03-25] MEDS: Famotidine 20 MG Tablet PO (21:14)
[2021-03-25] MEDS: Atorvastatin Calcium 40 MG Tablet PO (21:14)
[2021-03-25] MEDS: 0.9% Normal Saline 1,000 ML 100 ML IV (21:15)
[2021-03-25] MEDS: traMADol 50 MG Tablet PO (21:32)
[2021-03-25 23:05] LABS: Troponin-I HS 4897.8 pg/mL (3.0-53.7)
[2021-03-26] VITALS (17 sets, daily range): BP systolic 92–111; BP diastolic 50–80; PULSE 73–112; RESP 16–18; TEMP 35–36.8; O2SAT 92–96
--- NOTE | 2021-03-26 00:05 | NURSING ---
Pt cant void. nothing in [place]. bladder scan for 635. yosvany thompson precision aircraft systems assembler notified straight cath 600
[2021-03-26] MEDS: Morphine 2 MG/ML Syringe IV (00:13)
[2021-03-26 04:28] LABS: Absolute Lymphocyte Count 1.35 X10^3/uL (0.83-4.51); Absolute Neutrophil Count 7.4 X10^3/uL (2.0-7.7); Basophil# 0.02 X10^3/uL; Basophil% 0.2 % (0-1); Eosinophil# 0.06 X10^3/uL; Eosinophils% 0.6 % (0-5); Hematocrit 39.2 % (37-47); Hemoglobin 13.2 g/dL (12.0-15.0); Lymphocyte # 1.35 X10^3/ul (0.83-4.51); Lymphocyte % 14.1 % (19-41); Mean Corp Hgb Conc 33.7 g/dL (32-36); Mean Corpuscular Hgb 36.3 pg (27.0-32.0); Mean Corpuscular Volume 107.7 fL (81-99); Mean Platelet Vol. 10.7 fl (6.2-12.0); Monocyte# 0.77 X10^3/uL; NRBC Flagged by Analyzer 0 % (0-5); Neutrophil # 7.38 X10^3/uL (2.7-7.7); Neutrophil % 76.9 % (47-70); Platelet Count 213 K/mm3 (150-450); RBC Distribution Width CV 13.1 % (11.6-14.6); RBC Distribution Width SD 51.8 fl (35.1-43.9); Red Blood Count 3.64 M/mm3 (4.2-5.4); White Blood Count 9.6 K/mm3 (4.4-11.0)
[2021-03-26 04:58] LABS: AST(SGOT) 57 U/L (15-37); Alanine Aminotransfer ALT/SGPT 24 U/L (13-56); Alkaline Phosphatase 89 U/L (45-117); Anion Gap 13 (5-15); BUN 17 mg/dL (7-18); BUN/Creat Ratio 34.8 RATIO (10-20); Calcium,Total 8.3 mg/dL (8.5-10.1); Chloride 109 mmol/L (98-107); Cholesterol 92 mg/dL (200); Creatinine, Serum 0.49 mg/dL (0.55-1.02); EST Glomerular Filtration Rate 130 mL/min (>60); Est Glom Filt Rate - Afr Amer 157 mL/min (>60); Estimated Creatinine Clearance 41.05 ml/min; Glucose 120 mg/dL (74-106); High Density Lipoprotein 32 mg/dL; Potassium 3.8 mmol/L (3.5-5.1); Sodium Level 141 mmol/L (136-145); Triglycerides 66 mg/dL; Very Low Density Lipoprotein 13 mg/dL (5-40)
--- NOTE | 2021-03-26 04:59 | NURSING ---
REPORT CALLED TO PRUDENCIO
[2021-03-26] MEDS: Mag Hydrox/Al Hydrox/Simeth 30 ML UDC PO (05:32)
--- NOTE | 2021-03-26 05:55 | EKG12_ITS ---
Test Reason : REPEAT Blood Pressure : / mmHG Vent. Rate : 110 BPM Atrial Rate : 110 BPM P-R Int : 148 ms QRS Dur : 100 ms QT Int : 376 ms P-R-T Axes : 016 -06 146 degrees QTc Int : 508 ms Sinus tachycardia T wave abnormality, consider anterolateral ischemia Abnormal ECG Confirmed by RAMANA SUGGS, JAMAL ([id number]), visual effects editor DEMETRIUS MARTINEZ ([id number]) on 03/30/2021 9:01:30 AM Referred By: AMBER Confirmed By:JAMAL BOLES MD
[2021-03-26] MEDS: 0.9% Normal Saline 1,000 ML 100 ML IV (06:55)
[2021-03-26 07:45] LABS: ACT Activated Clotting Time 142
[2021-03-26] MEDS: 0.9% Saline Lock 10 ML Syringe IV ×2 (09:19→17:04)
[2021-03-26] MEDS: traMADol 50 MG Tablet PO ×2 (09:19→17:04)
[2021-03-26] MEDS: Ondansetron 4 MG/2 ML Vial IV ×2 (09:19→17:04)
--- NOTE | 2021-03-26 10:00 | EKG12_ITS ---
Test Reason : Blood Pressure : / mmHG Vent. Rate : 102 BPM Atrial Rate : 102 BPM P-R Int : 162 ms QRS Dur : 100 ms QT Int : 394 ms P-R-T Axes : 011 -07 -25 degrees QTc Int : 513 ms Sinus tachycardia Nonspecific T wave abnormality : Consider Myocardial Ischemia: Anterior-Lateral Abnormal ECG Confirmed by RAMANA SUGGS, JAMAL ([id number]), manager editorial DEMETRIUS MARTINEZ ([id number]) on 03/30/2021 9:02:09 AM Referred By: AMBER Confirmed By:JAMAL BOLES MD
--- NOTE | 2021-03-26 10:09 | PN.CARD_ITS ---
Subjective Subjective This is a 80 year old female that presented to [facility] with chest discomfort upon awakening at approximately 7 AM with associated nausea, emesis, diaphoresis with associated dyspnea. Her troponin was noted to be elevated and she underwent an urgent heart cath. Heart cath demonstrated normal coronary arteries with and EF of 35%. It is thought to be a takotsubo. Overall pt is doing well, she does not have any worsening SOB or CP. Objective Data Vital Signs: Vital Signs Temp Pulse Resp BP Pulse Ox 97.7 F L 110 H 16 108/64 95 03/26/21 08:58 03/26/21 08:58 03/26/21 08:58 03/26/21 08:58 03/26/21 08:58 Oxygen Flow Rate (L/min) 2 Oxygen Delivery Method Room Air Weight: 176 lb 12.972 oz Body Mass Index (BMI) 29.9 Intake & Output: Intake and Output for Last 24 Hours 03/24/21 03/25/21 03/26/21 23:59 23:59 23:59 Intake Total 1680 / 1680 1766.67 / 1766.67 Output Total 0 / 0 1200 / 1200 Balance 1680 / 1680 566.67 / 566.67 Lab / Micro Data Result Diagrams: 03/26/21 03:55 03/26/21 03:55 Labs: Laboratory Results - last 24 hr 03/25/21 12:03: WBC 9.1, RBC 4.28, Hgb 15.1 H, Hct 45.0, MCV 105.1 H, MCH 35.3 H , MCHC 33.6, RDW Std Deviation 49.7 H, RDW Coeff of Juanpablo 12.8, Plt Count 264, MPV 10.4, Immature Gran % (Auto) 0.600, Neut % (Auto) 75.0 H, Lymph % (Auto) 15.6 L, [place] % (Auto) 6.2, Eos % (Auto) 2.3, Baso % (Auto) 0.3, Absolute Neuts (auto) 6.8, Absolute Lymphs (auto) 1.41, Nucleated RBC % 0 03/25/21 12:03: Sodium 139, Potassium 3.8, Chloride 104, Carbon Dioxide 23.0, Anion Gap 12, BUN 21 H, Creatinine 0.68, Estim Creat Clear Calc 41.05, Est GFR (MDRD) Af Amer 108, Est GFR (MDRD) Non-Af 89, BUN/Creatinine Ratio 31.1 H, Glucose 140 H, Calcium 9.6, Troponin I High Sens 1360.4 H* 03/25/21 12:03: Magnesium 1.8 03/25/21 12:03: Procalcitonin < 0.04 03/25/21 12:15: D-Dimer Quant (PE/DVT) 0.80 H* 03/25/21 20:15: Hemoglobin A1c 5.7 H 03/25/21 20:15: Troponin I High Sens 4362.6 H* 03/25/21 22:35: Troponin I High Sens 4897.8 H* 03/26/21 03:55: WBC 9.6, RBC 3.64 L, Hgb 13.2, Hct 39.2, MCV 107.7 H, MCH 36.3 H , MCHC 33.7, RDW Std Deviation 51.8 H, RDW Coeff of Juanpablo 13.1, Plt Count 213, MPV 10.7, Immature Gran % (Auto) 0.200, Neut % (Auto) 76.9 H, Lymph % (Auto) 14.1 L, [place] % (Auto) 8.0, Eos % (Auto) 0.6, Baso % (Auto) 0.2, Absolute Neuts (auto) 7.4, Absolute Lymphs (auto) 1.35, Nucleated RBC % 0 03/26/21 03:55: Sodium 141, Potassium 3.8, Chloride 109 H, Carbon Dioxide 19.0 L , Anion Gap 13, BUN 17, Creatinine 0.49 L, Estim Creat Clear Calc 41.05, Est GFR (MDRD) Af Amer 157, Est GFR (MDRD) Non-Af 130, BUN/Creatinine Ratio 34.8 H, Glucose 120 H, Calcium 8.3 L, Total Bilirubin 0.80, AST 57 H, ALT 24, Alkaline Phosphatase 89, Troponin I High Sens 5706.6 H*, Total Protein 6.0 L, Albumin 3.0 L, Globulin 3.0, Albumin/Globulin Ratio 1.0, Triglycerides 66, Cholesterol 92, LDL Cholesterol 47, VLDL Cholesterol 13, HDL Cholesterol 32 L Cardiology Labs/Tests 03/25/21 12:03: WBC 9.1, RBC 4.28, Hgb 15.1 H, Hct 45.0, MCV 105.1 H, MCH 35.3 H , MCHC 33.6, Plt Count 264, MPV 10.4, Immature Gran % (Auto) 0.600, Neut % (Auto) 75.0 H, Lymph % (Auto) 15.6 L, [place] % (Auto) 6.2, Eos % (Auto) 2.3, Baso % (Auto) 0.3, Absolute Neuts (auto) 6.8, Nucleated RBC % 0 03/25/21 12:03: Sodium 139, Potassium 3.8, Chloride 104, Carbon Dioxide 23.0, Anion Gap 12, BUN 21 H, Creatinine 0.68, Est GFR (MDRD) Af Amer 108, Est GFR (MDRD) Non-Af 89, BUN/Creatinine Ratio 31.1 H, Glucose 140 H, Calcium 9.6 03/25/21 12:03: Magnesium 1.8 03/25/21 12:15: D-Dimer Quant (PE/DVT) 0.80 H* 03/25/21 20:15: Hemoglobin A1c 5.7 H 03/26/21 03:55: WBC 9.6, RBC 3.64 L, Hgb 13.2, Hct 39.2, MCV 107.7 H, MCH 36.3 H , MCHC 33.7, Plt Count 213, MPV 10.7, Immature Gran % (Auto) 0.200, Neut % (Auto ) 76.9 H, Lymph % (Auto) 14.1 L, [place] % (Auto) 8.0, Eos % (Auto) 0.6, Baso % (Auto) 0.2, Absolute Neuts (auto) 7.4, Nucleated RBC % 0 03/26/21 03:55: Sodium 141, Potassium 3.8, Chloride 109 H, Carbon Dioxide 19.0 L , Anion Gap 13, BUN 17, Creatinine 0.49 L, Est GFR (MDRD) Af Amer 157, Est GFR (MDRD) Non-Af 130, BUN/Creatinine Ratio 34.8 H, Glucose 120 H, Calcium 8.3 L, Total Bilirubin 0.80, Triglycerides 66, Cholesterol 92, LDL Cholesterol 47, VLDL Cholesterol 13, HDL Cholesterol 32 L Rhythm: EKG: ECHO 2019: Normal LV size. Left ventricular systolic function is normal. The estimated ejection fraction is 65 %. Stage 1 diastolic dysfunction. Moderate focal mitral valve calcification. Stress Test: Cardiac Cath: 03/25/2021: CAD as described. FFR in the LAD is 0.89. 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 No significant or MR. Intracavitary gradient in the LV likely from the wall motion abnormalities related to takostubo cardiomyopathy RECOMMENDATIONS Medical treatment for CAD, takotsubo cardiomyopathy PCI: CT Surgery: Holter monitor: EPS: PPM: CXR: Chest CT Scan: Radiography Diagnostic Testing: Radiology Impression Chest X-Ray 03/25/21 12:06 IMPRESSION: Findings suggestive of a right upper lobe infiltrate. Electronically Signed: Philip Avila MD at 12:54 EDT , Service support , Physical Exam Const alert, oriented x3, no apparent distress and average body habitus HEENT normocephalic, head/scalp atraumatic, hearing grossly normal bilaterally, external ears normal, nasal mucous membranes and turbinates normal, moist oral mucous membranes and oropharynx normal Eyes PERRL, EOMs intact bilaterally, conjunctivae normal and no scleral icterus Neck no lymphadenopathy and supple Resp Auscultation: clear to auscultation bilaterally Cardio regular rate, regular rhythm, S1 normal heart sound and S2 normal heart sound; Negative for no murmurs, no rub, no gallops, no clicks or no JVD GI normal to inspection, nondistended, normoactive bowel sounds, soft to palpation, non-tender and hepatosplenomegaly Extremity normal to inspection and normal capillary refill Neuro oriented x3, CN's II-XII intact bilaterally, moves all extremities, no focal motor deficits and no sensory deficits noted Assessment & Plan Assessment/Plan (1) Non-ST elevated myocardial infarction: PLAN: -Heart catheterization did not demonstrate any significant coronary artery disease. -EF is noted to be 35% -We will switch metoprolol to carvedilol, will monitor her heart rate and blood pressure readings. (2) Takotsubo cardiomyopathy: PLAN: -Patient is noted to have a decreased ejection fraction of 35%. Will treat with beta-peter and ELINA inhibitor. (3) Atherosclerosis of coronary artery of [place] heart without angina pectoris: PLAN: -Heart catheterization did not demonstrate any significant coronary artery disease. We'll continue with medical management. (4) Essential (primary) hypertension: PLAN: -Since we are adjusting her medications would continue to monitor her heart rate and blood pressure closely (5) Hyperlipidemia: PLAN: Patient will continue with current dose of statin.
--- NOTE | 2021-03-26 10:55 | CASEMGMT ---
MARYAN MAYBERRY Face to Face with patient for initial transition planning/care coordination assessment. RN CM introduced self and role at [facility]. Patient lying in bed, alert and oriented. Patient willing to participate in assessment and is able to answer all questions appropriately. Care providers, pharmacy, and demographics verified. Patient wishes to discharge home, with possible HHC pending therapy. Patient states she has no further needs or concerns at this time. CM to follow for discharge planning needs that may arise. PCP: [place] Specialists: [employer] sales representative Preferred Pharmacy: [facility] Insurance: Hali FLOYD Prescription Benefit: yes Living Will/HPOA: yes, daughter Srinivas De La O HPOA LNOK: daugher Son Living Arrangements: Patient lives with son in a 2 story home with bed and bath on first floor. Patient states she is independent at home. Transportation: daughter, son, friends DME/HHC: Patient states she has cane and raised toilet at home. Patient denies further DME. Patient states she has previously had CCN Disposition Plan: Patient to discharge home with family support and follow-up plans in place. Monitor for HHC Kathia ALEX, RN, CM
[2021-03-26] MEDS: Enoxaparin 40 MG/0.4 ML Syringe SC (11:11)
[2021-03-26] MEDS: Tolterodine Tartrate 4 MG CAP.SA PO (11:12)
[2021-03-26] MEDS: Lisinopril 10 MG Tablet PO (11:12)
[2021-03-26] MEDS: Metoprolol(XL)Succ 50 MG Tablet PO (11:12)
[2021-03-26] MEDS: Aspirin E.C. 81 MG Tablet PO (11:12)
[2021-03-26] MEDS: Famotidine 20 MG Tablet PO ×2 (11:12→21:41)
--- NOTE | 2021-03-26 14:52 | CASEMGMT ---
Addendum entered by Kathia Lopez 03/26/21 15:26: [facility] is able to accept the patient for [facility]. Patient notified. Original Note: This RN CM to room to discuss discharge plan with pt and pt is agreeable to PT/OT, RENETTA galindo. Pt states she would like [facility] after verbal list provided. Call to Rosina at [facility] and she is updated on referral. SStmaximo STEINBERG CM
--- NOTE | 2021-03-26 15:23 | PN.HOSP_ITS ---
Subjective Subjective Patient states she is fatigued but otherwise has no significant complaints. We discussed her diagnosis of Takotsubo cardiomyopathy. 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 She is willing to accept help at home at discharge. Objective Data Objective Data Vital Signs: Vital Signs Temp Pulse Resp BP Pulse Ox 95 F L 110 H 18 103/79 95 03/26/21 15:15 03/26/21 15:15 03/26/21 15:15 03/26/21 15:15 03/26/21 08:58 Oxygen Flow Rate (L/min) 2 Oxygen Delivery Method Room Air Weight: 80.2 kg Body Mass Index (BMI) 29.9 Intake & Output: Intake and Output for Last 24 Hours 03/24/21 03/25/21 03/26/21 23:59 23:59 23:59 Intake Total 1680 / 1680 2213.34 / 2213.34 Output Total 0 / 0 1200 / 1200 Balance 1680 / 1680 1013.34 / 1013.34 Lab / Micro Data Result Diagrams: 03/26/21 03:55 03/26/21 03:55 Labs: Laboratory Results - last 24 hr 03/25/21 20:15: Hemoglobin A1c 5.7 H 03/25/21 20:15: Troponin I High Sens 4362.6 H* 03/25/21 22:35: Troponin I High Sens 4897.8 H* 03/26/21 03:55: WBC 9.6, RBC 3.64 L, Hgb 13.2, Hct 39.2, MCV 107.7 H, MCH 36.3 H , MCHC 33.7, RDW Std Deviation 51.8 H, RDW Coeff of Juanpablo 13.1, Plt Count 213, MPV 10.7, Immature Gran % (Auto) 0.200, Neut % (Auto) 76.9 H, Lymph % (Auto) 14.1 L, [place] % (Auto) 8.0, Eos % (Auto) 0.6, Baso % (Auto) 0.2, Absolute Neuts (auto) 7.4, Absolute Lymphs (auto) 1.35, Nucleated RBC % 0 08/13/21 03:55: Sodium 141, Potassium 3.8, Chloride 109 H, Carbon Dioxide 19.0 L , Anion Gap 13, BUN 17, Creatinine 0.49 L, Estim Creat Clear Calc 41.05, Est GFR (MDRD) Af Amer 157, Est GFR (MDRD) Non-Af 130, BUN/Creatinine Ratio 34.8 H, Glucose 120 H, Calcium 8.3 L, Total Bilirubin 0.80, AST 57 H, ALT 24, Alkaline Phosphatase 89, Troponin I High Sens 5706.6 H*, Total Protein 6.0 L, Albumin 3.0 L, Globulin 3.0, Albumin/Globulin Ratio 1.0, Triglycerides 66, Cholesterol 92, LDL Cholesterol 47, VLDL Cholesterol 13, HDL Cholesterol 32 L Physical Exam Const alert, oriented x3 and no apparent distress Constitutional Narrative: Overweight white female sitting up in bed, appears fatigued but no distress, nontoxic-appearing Exam Limitations: no limitations HEENT head/scalp atraumatic Head and Scalp: normocephalic Neck supple Neck Narrative: Trachea midline Resp normal respiratory effort, no retractions, no use of accessory muscles and clear to auscultation bilaterally Resp Narrative: Diminished bases but clear Cardio regular rhythm, S1 normal heart sound, S2 normal heart sound, no murmurs, no rub, no gallops, no clicks and no JVD Cardio Narrative: Mild tachycardia GI normal to inspection, nondistended, normoactive bowel sounds, soft to palpation, non-tender and non-distended Extremity no clubbing, cyanosis or edema Peripheral Pulses: Yes pulses 2+ throughout Neuro oriented x3, CN's II-XII intact bilaterally, moves all extremities and no focal motor deficits Neuro Narrative: Generalized weakness Sensorium / Orientation: awake and alert Speech: speech normal Psych affect normal Assessment & Plan Assessment/Plan (1) Takotsubo cardiomyopathy: (2) Non-ST elevated myocardial infarction: (3) Tachycardia: PLAN: NSTEMI -Cardiac enzyme elevation likely due to Takotsubo cardiomyopathy -Noted significant lesions noted with cardiac catheterization done on 03/25/2021 -Continue medical therapy -Cards following Takotsubo cardiomyopathy -EF 35% the emergency department -Continue beta-peter and ELINA inhibitor -We will need follow-up echo in 6 to 8 weeks -Cardiology following Tachycardia -Metoprolol increased today -Continue to evaluate and trend Hypertension -Continue current medications -We will trend and adjust as able Hyperlipidemia -Continue statin CAD -History of remote PCI -FFR done during cardiac catheterization and no significant lesions noted -Continue medical therapy Recent L4 fracture -Continue pain management and outpatient follow-up Caregiver stress -Patient is agreeable to getting assistance in caring for her with Alzheimer's and blindness DVT prophylaxis -contine Raul CODE STATUS -Full code Charges/Coding Visit Charges Inpatient E&M: 85702 Subs Hosp L2
--- NOTE | 2021-03-26 20:49 | PCM.PN.CARD ---
Subjective Subjective The patient is awake and alert at this time. She does not complain of ongoing chest discomfort. There is no report of any acute shortness of breath or dyspnea. Objective Data Vital Signs: Vital Signs Temp Pulse Resp BP Pulse Ox 97.6 F L 107 H 16 105/80 96 03/26/21 15:30 03/26/21 19:00 03/26/21 15:30 03/26/21 15:30 03/26/21 15:30 Oxygen Flow Rate (L/min) 2 Oxygen Delivery Method Room Air Weight: 176 lb 12.972 oz Body Mass Index (BMI) 29.9 Intake & Output: Intake and Output for Last 24 Hours 03/24/21 03/25/21 03/26/21 23:59 23:59 23:59 Intake Total 1680 / 1680 3466.67 / 3466.67 Output Total 0 / 0 1200 / 1200 Balance 1680 / 1680 2266.67 / 2266.67 Lab / Micro Data Result Diagrams: 03/26/21 03:55 03/26/21 03:55 Labs: Laboratory Results - last 24 hr 03/25/21 20:15: Troponin I High Sens 4362.6 H* 03/25/21 22:35: Troponin I High Sens 4897.8 H* 03/26/21 03:55: WBC 9.6, RBC 3.64 L, Hgb 13.2, Hct 39.2, MCV 107.7 H, MCH 36.3 H, MCHC 33.7, RDW Std Deviation 51.8 H, RDW Coeff of Juanpablo 13.1, Plt Count 213, MPV 10.7, Immature Gran % (Auto) 0.200, Neut % (Auto) 76.9 H, Lymph % (Auto) 14.1 L, [place] % (Auto) 8.0, Eos % (Auto) 0.6, Baso % (Auto) 0.2, Absolute Neuts (auto) 7.4, Absolute Lymphs (auto) 1.35, Nucleated RBC % 0 03/26/21 03:55: Sodium 141, Potassium 3.8, Chloride 109 H, Carbon Dioxide 19.0 L, Anion Gap 13, BUN 17, Creatinine 0.49 L, Estim Creat Clear Calc 41.05, Est GFR (MDRD) Af Amer 157, Est GFR (MDRD) Non-Af 130, BUN/Creatinine Ratio 34.8 H, Glucose 120 H, Calcium 8.3 L, Total Bilirubin 0.80, AST 57 H, ALT 24, Alkaline Phosphatase 89, Troponin I High Sens 5706.6 H*, Total Protein 6.0 L, Albumin 3.0 L, Globulin 3.0, Albumin/Globulin Ratio 1.0, Triglycerides 66, Cholesterol 92, LDL Cholesterol 47, VLDL Cholesterol 13, HDL Cholesterol 32 L Cardiology Labs/Tests 03/26/21 03:55: WBC 9.6, RBC 3.64 L, Hgb 13.2, Hct 39.2, MCV 107.7 H, MCH 36.3 H, MCHC 33.7, Plt Count 213, MPV 10.7, Immature Gran % (Auto) 0.200, Neut % (Auto) 76.9 H, Lymph % (Auto) 14.1 L, [place] % (Auto) 8.0, Eos % (Auto) 0.6, Baso % (Auto) 0.2, Absolute Neuts (auto) 7.4, Nucleated RBC % 0 03/26/21 03:55: Sodium 141, Potassium 3.8, Chloride 109 H, Carbon Dioxide 19.0 L, Anion Gap 13, BUN 17, Creatinine 0.49 L, Est GFR (MDRD) Af Amer 157, Est GFR (MDRD) Non-Af 130, BUN/Creatinine Ratio 34.8 H, Glucose 120 H, Calcium 8.3 L, Total Bilirubin 0.80, Triglycerides 66, Cholesterol 92, LDL Cholesterol 47, VLDL Cholesterol 13, HDL Cholesterol 32 L Rhythm: Sinus rhythm EKG: Sinus rhythm; T wave abnormality compatible with myocardial ischemia-anterior lateral ECHO: As noted below Radiography Diagnostic Testing: Radiology Impression Echocardiogram 03/25/21 19:52 Interpretation Summary The study was technically difficult. Contrast injection was performed. Moderately severe segmental systolic dysfunction (see wall motion). The estimated ejection fraction is 35 %. The left atrium is mildly enlarged. There is mild mitral annular calcification. Extension the mitral annular calcification onto the base of the posterior mitral valve leaflet. Mild (1+) mitral valve insufficiency. Mild tricuspid valve insufficiency. Mild focal aortic valve calcification. Right ventricular systolic pressure estimated to be 33 mmHg. Transmitral diastolic flow velocities suggest diastolic dysfunction (pseudonormal pattern). Comment: 2D echocardiographic images of the left ventricle, with respect to wall motion, are potentially compatible with an underlying Takotsubo syndrome/apical ballooning syndrome. Ordering Physician: Tsering Mckeon Referring Physician: Juan J Hi M.D. Performed By: Renaldo Montilla RCS Physical Exam Const alert, oriented x3 and no apparent distress Orientation / Consciousness: awake HEENT normocephalic, head/scalp atraumatic and hearing grossly normal bilaterally Eyes PERRL, EOMs intact bilaterally and conjunctivae normal Neck full ROM, supple and no JVD Chest inspection of chest normal Resp clear to auscultation bilaterally Cardio regular rate, regular rhythm, S1 normal heart sound and S2 normal heart sound Heart Sounds: murmur systolic II/ soft mid left sternal border and LVOT GI normal to inspection, nondistended, normoactive bowel sounds Extremity no pedal edema Skin no rashes or lesions noted Psych mental status grossly normal Assessment & Plan Assessment/Plan (1) Takotsubo cardiomyopathy: PLAN: The patient is thought to have findings compatible with underlying Takotsubo syndrome. She has undergone noninvasive and invasive evaluation. At the present time she will continue medical therapy which does include beta-blockers and ELINA inhibitors. (2) Atherosclerosis of coronary artery of [place] heart without angina pectoris: PLAN: The patient has a history of CAD. She should continue risk factor evaluation and care. (3) History of coronary artery stent placement: PLAN: The patient has a history of an underlying previous PCI. She has undergone evaluation in the cardiac catheterization laboratory by Dr. Sarah. She did not require additional PCI. (4) Hyperlipidemia: PLAN: The patient should continue lipid-lowering therapy. (5) Essential (primary) hypertension: PLAN: The patient's blood pressure will be monitored and her medications adjusted accordingly. Addt'l Comments Over the time the patient will need only continued medical therapy outpatient cardiovascular follow-up including outpatient echocardiographic studies to monitor her left ventricular wall motion and systolic function. This note was generated using a voice recognition system and there may be incorrect words, spelling or punctuation that were not noted when reviewing the office note prior to saving.
[2021-03-26] MEDS: Atorvastatin Calcium 40 MG Tablet PO (21:41)
[2021-03-26] MEDS: Acetaminophen 325 MG Tablet 650 MG PO (21:41)
[2021-03-27] VITALS (7 sets, daily range): BP systolic 93–108; BP diastolic 48–84; PULSE 60–95; RESP 16–20; TEMP 35.6–36.7; O2SAT 94–96
--- NOTE | 2021-03-27 06:58 | EKG12_ITS ---
Test Reason : Blood Pressure : / mmHG Vent. Rate : 090 BPM Atrial Rate : 090 BPM P-R Int : 170 ms QRS Dur : 100 ms QT Int : 416 ms P-R-T Axes : 006 -14 091 degrees QTc Int : 508 ms Normal sinus rhythm Nonspecific T wave abnormality Prolonged QT Abnormal ECG Confirmed by RAMANA SUGGS, JAMAL ([id number]), news video editor DEMETRIUS MARTINEZ ([id number]) on 03/31/2021 10:59:23 AM Referred By: Jayleen Vidales Confirmed By:JAMAL BOLES MD
[2021-03-27] MEDS: Carvedilol 12.5 MG Tablet PO (08:56)
[2021-03-27] MEDS: Famotidine 20 MG Tablet PO (08:56)
[2021-03-27] MEDS: Enoxaparin 40 MG/0.4 ML Syringe SC (08:56)
[2021-03-27] MEDS: Lisinopril 10 MG Tablet PO (08:56)
[2021-03-27] MEDS: Tolterodine Tartrate 4 MG CAP.SA PO (08:56)
[2021-03-27] MEDS: Aspirin E.C. 81 MG Tablet PO (08:56)
[2021-03-27 08:57] LABS: Absolute Lymphocyte Count 1.73 X10^3/uL (0.83-4.51); Absolute Neutrophil Count 5.1 X10^3/uL (2.0-7.7); Basophil# 0.02 X10^3/uL; Basophil% 0.3 % (0-1); Eosinophil# 0.09 X10^3/uL; Eosinophils% 1.2 % (0-5); Hematocrit 38.7 % (37-47); Hemoglobin 12.7 g/dL (12.0-15.0); Lymphocyte # 1.73 X10^3/ul (0.83-4.51); Lymphocyte % 22.8 % (19-41); Mean Corp Hgb Conc 32.8 g/dL (32-36); Mean Corpuscular Hgb 35.3 pg (27.0-32.0); Mean Corpuscular Volume 107.5 fL (81-99); Mean Platelet Vol. 11.2 fl (6.2-12.0); Monocyte% 7.9 % (0-10); NRBC Flagged by Analyzer 0 % (0-5); Neutrophil # 5.12 X10^3/uL (2.7-7.7); Neutrophil % 67.5 % (47-70); POSITIVE COUNT YES; RBC Distribution Width CV 13.1 % (11.6-14.6); RBC Distribution Width SD 52.3 fl (35.1-43.9); White Blood Count 7.6 K/mm3 (4.4-11.0)
[2021-03-27 09:15] LABS: Anion Gap 5 (5-15); BUN 16 mg/dL (7-18); BUN/Creat Ratio 30.9 RATIO (10-20); Calcium,Total 8.8 mg/dL (8.5-10.1); Chloride 110 mmol/L (98-107); Creatinine, Serum 0.52 mg/dL (0.55-1.02); EST Glomerular Filtration Rate 122 mL/min (>60); Est Glom Filt Rate - Afr Amer 147 mL/min (>60); Estimated Creatinine Clearance 41.05 ml/min; Glucose 104 mg/dL (74-106); Potassium 4.2 mmol/L (3.5-5.1); Sodium Level 137 mmol/L (136-145)
[2021-03-27 09:26] LABS: Platelet Estimate ADEQUATE (ADEQ)
--- NOTE | 2021-03-27 11:51 | PN.CARD_ITS ---
Subjective Subjective The patient appears to be resting comfortably with no new acute complaints. Objective Data Vital Signs: Vital Signs Temp Pulse Resp BP Pulse Ox 98.1 F 91 18 108/60 95 03/27/21 08:54 03/27/21 08:54 03/27/21 08:54 03/27/21 08:54 03/27/21 08:54 Oxygen Flow Rate (L/min) 2 Oxygen Delivery Method Room Air Weight: 186 lb 4.65 oz Body Mass Index (BMI) 29.9 Intake & Output: Intake and Output for Last 24 Hours 03/25/21 03/26/21 03/27/21 23:59 23:59 23:59 Intake Total 1680 / 1680 3466.67 / 3566.67 100 / 100 Output Total 0 / 0 1200 / 1200 Balance 1680 / 1680 2266.67 / 2366.67 100 / 100 Lab / Micro Data Result Diagrams: 03/27/21 08:41 03/27/21 08:41 Labs: Laboratory Results - last 24 hr 03/27/21 08:41: WBC 7.6, RBC 3.60 L, Hgb 12.7, Hct 38.7, MCV 107.5 H, MCH 35.3 H , MCHC 32.8, RDW Std Deviation 52.3 H, RDW Coeff of Juanpablo 13.1, Plt Count , MPV 11.2, Immature Gran % (Auto) 0.300, Neut % (Auto) 67.5, Lymph % (Auto) 22.8, [place] % (Auto) 7.9, Eos % (Auto) 1.2, Baso % (Auto) 0.3, Absolute Neuts (auto) 5.1, Absolute Lymphs (auto) 1.73, Nucleated RBC % 0, Platelet Estimate ADEQUATE 03/27/21 08:41: Sodium 137, Potassium 4.2, Chloride 110 H, Carbon Dioxide 22.0, Anion Gap 5, BUN 16, Creatinine 0.52 L, Estim Creat Clear Calc 41.05, Est GFR (MDRD) Af Amer 147, Est GFR (MDRD) Non-Af 122, BUN/Creatinine Ratio 30.9 H, Glucose 104, Calcium 8.8 Cardiology Labs/Tests 03/27/21 08:41: WBC 7.6, RBC 3.60 L, Hgb 12.7, Hct 38.7, MCV 107.5 H, MCH 35.3 H , MCHC 32.8, Plt Count , MPV 11.2, Immature Gran % (Auto) 0.300, Neut % (Auto) 67.5, Lymph % (Auto) 22.8, [place] % (Auto) 7.9, Eos % (Auto) 1.2, Baso % (Auto) 0.3, Absolute Neuts (auto) 5.1, Nucleated RBC % 0 03/27/21 08:41: Sodium 137, Potassium 4.2, Chloride 110 H, Carbon Dioxide 22.0, Anion Gap 5, BUN 16, Creatinine 0.52 L, Est GFR (MDRD) Af Amer 147, Est GFR (MDRD) Non-Af 122, BUN/Creatinine Ratio 30.9 H, Glucose 104, Calcium 8.8 Rhythm: Sinus rhythm Radiography Diagnostic Testing: Radiology Impression Echocardiogram 03/25/21 19:52 Interpretation Summary The study was technically difficult. Contrast injection was performed. Moderately severe segmental systolic dysfunction (see wall motion). The estimated ejection fraction is 35 %. The left atrium is mildly enlarged. There is mild mitral annular calcification. Extension the mitral annular calcification onto the base of the posterior mitral valve leaflet. Mild (1+) mitral valve insufficiency. Mild tricuspid valve insufficiency. Mild focal aortic valve calcification. Right ventricular systolic pressure estimated to be 33 mmHg. Transmitral diastolic flow velocities suggest diastolic dysfunction (pseudonormal pattern). Comment: 2D echocardiographic images of the left ventricle, with respect to wall motion, are potentially compatible with an underlying Takotsubo syndrome/apical ballooning syndrome. Ordering Physician: Tsering Mckeon Referring Physician: Juan J Hi M.D. Performed By: Renaldo Montilla RCS Physical Exam Const alert, oriented x3, no apparent distress and average body habitus Orientation / Consciousness: awake HEENT normocephalic, head/scalp atraumatic, hearing grossly normal bilaterally, external ears normal, nasal mucous membranes and turbinates normal and oropharynx normal Eyes PERRL, EOMs intact bilaterally, conjunctivae normal and no scleral icterus Neck full ROM, supple and no JVD Chest inspection of chest normal Resp normal respiratory effort and clear to auscultation bilaterally Auscultation: clear to auscultation bilaterally Cardio regular rate, regular rhythm, S1 normal heart sound and S2 normal heart sound Heart Sounds: murmur systolic II/ soft mid left sternal border and LVOT GI normal to inspection, nondistended, normoactive bowel sounds, soft to palpation, non-tender and hepatosplenomegaly Extremity no pedal edema Skin no rashes or lesions noted Neuro oriented x3, CN's II-XII intact bilaterally, moves all extremities, no focal motor deficits and no sensory deficits noted Psych mental status grossly normal Assessment & Plan Assessment/Plan (1) Takotsubo cardiomyopathy: PLAN: The patient is thought to have findings compatible with underlying Takotsubo syndrome. She has undergone noninvasive and invasive evaluation. At the present time she will continue medical therapy which does include beta- blockers and ELINA inhibitors. (2) Atherosclerosis of coronary artery of [place] heart without angina pectoris: PLAN: The patient has a history of CAD. She should continue risk factor evaluation and care. (3) History of coronary artery stent placement: PLAN: The patient has a history of an underlying previous PCI. She has undergone evaluation in the cardiac catheterization laboratory by Dr. Sarah. She did not require additional PCI. (4) Hyperlipidemia: PLAN: The patient should continue lipid-lowering therapy. (5) Essential (primary) hypertension: PLAN: The patient's blood pressure will be monitored and her medications adjusted accordingly. Addt'l Comments At the present time the patient will continue medical management with adjustment as she tolerates. Over time she will need follow-up echocardiogram to reassess her left ventricular wall motion and systolic function to help guide further evaluation and care. This note was generated using a voice recognition system and there may be inco rrect words, spelling or punctuation that were not noted when reviewing the office note prior to saving.
[2021-03-27] MEDS: proCHLORPERazine 10 MG/2 ML Vial 5 MG IV (12:13)
[2021-03-27] MEDS: 0.9% Saline Lock 10 ML Syringe IV (12:14)
--- NOTE | 2021-03-27 14:04 | DS.PCM_ITS ---
Providers Date of Admission: 03/25/21 Primary Care Physician: Dr. Juan J Hi MD Consultations 03/25/21 19:52 Consult: Cardiology Routine Consulting Provider: Katrina Sarah Reason for Consult: NSTEMI, Chest pain EMERGENT Consult: No MD Notified: Yes Date Notified: 03/25/21 Time Notified: 13:35 Method of Notification: called per ED Reason For Visit: NSTEMI, CHEST PAIN Diagnosis Discharge Diagnosis (1) Takotsubo cardiomyopathy: Status: Acute Code(s): I51.81 - Takotsubo syndrome (2) Atherosclerosis of coronary artery of [place] heart without angina pectoris: Status: Chronic Code(s): I25.10 - Atherosclerotic heart disease of [place] coronary artery without angina pectoris (3) History of coronary artery stent placement: Status: Resolved Code(s): Z95.5 - Presence of coronary angioplasty implant and graft (4) Hyperlipidemia: Status: Chronic Code(s): E78.5 - Hyperlipidemia, unspecified (5) Essential (primary) hypertension: Status: Chronic Code(s): I10 - Essential (primary) hypertension Medications at Discharge Home Medications aspirin 81 mg tablet,delayed release 81 mg PO DAILY 04/25/18 nitroglycerin 0.4 mg sublingual tablet 0.4 mg SUBLINGUAL Q5-15M #25 tab 07/18/19 atorvastatin 40 mg tablet 40 mg PO QHS #90 tab 07/24/19 cholecalciferol (vitamin D3) 125 mcg PO DAILY 03/25/21 lisinopril 10 mg PO DAILY 03/25/21 oxybutynin chloride 10 mg PO DAILY 03/25/21 tramadol 50 mg PO Q4H PRN 03/25/21 carvedilol 12.5 mg PO BID #60 tab 03/27/21 Hospital Course Procedures 2-D Echocardiogram and Cardiac catheterization Summary of Care Provided Minutes Spent on Discharge: 39 Hospital Course: Mrs. Phelps is a 80-year-old white female who presented to the emergency department at [facility] on 03/25/2021 with a chief complaint of chest pain and nausea and vomiting. She reported that she awoke at approximately 7 AM that day with an aching in her chest initially on the right side that transitioned into retrosternal pain associated with nausea, vomiting, associated dyspnea, and diaphoresis which prompted ED presentation. She noted that her discomfort was independent of activity. Her EKG showed minimal ST elevation in V1 and V2 with Q waves present when compared to previous EKG. In the emergency department she was given heparin, aspirin, and nitroglycerin. Cardiology was consulted emergently and transition the patient to the Creative/Art Director. She had no significant lesions noted on her left heart cath but she had a noted depressed EF with an estimated ejection fraction of 35%. Cardiology felt that this was most likely related to a Takotsubo cardiomyopathy. The patient does admit that she has been under significant stress recently with an injury to her back as well as taking care of her who has Alzheimer's with worsening dementia and legally blind. She was maintained on her home medications other than her metoprolol XL which was discontinued and exchanged for carvedilol 12.5 mg twice daily. An echocardiogram was also obtained which supported the EF noted during the cardiac catheterization and no other significant structural abnormalities were noted. She was able to be discharged on 03/27/2021 and has a follow-up appointment with cardiology on 05/11/2021. She was instructed to use a low-salt cardiac diet and has gotten assistance at home to decrease her stress load during her acute illness and in general with the caregiving of her . Discharge diagnoses: Takotsubo cardiomyopathy Tachycardia-resolved Hypertension Hyperlipidemia CAD status post remote PCI Recent L4 fracture Caregiver stress Vitamin D deficiency Urinary incontinence Physical Exam Const alert, oriented x3 and no apparent distress Constitutional Narrative: Older white female sitting up in bed, appears more comfortable than yesterday, nontoxic, no acute distress General Appearance: cooperative, comfortable, well kempt and well developed HEENT normocephalic, head/scalp atraumatic, hearing grossly normal bilaterally, moist oral mucous membranes and oropharynx normal Mouth: oral and palatal mucosa normal Eyes PERRL and EOMs intact bilaterally Neck no lymphadenopathy, supple and no JVD Neck Narrative: Trachea midline Resp normal respiratory effort, no retractions, no use of accessory muscles and clear to auscultation bilaterally Auscultation: Negative for crackles, rales, rhonchi or wheezes Cardio regular rate, regular rhythm, S1 normal heart sound, S2 normal heart sound, no murmurs, no rub, no gallops, no clicks and no JVD GI normal to inspection, nondistended, normoactive bowel sounds, soft to palpation, non-tender and non-distended Extremity normal to inspection and no clubbing, cyanosis or edema Skin no rashes or lesions noted, no wounds, skin turgor normal and no jaundice Skin Narrative: Pale skin Neuro oriented x3, CN's II-XII intact bilaterally, moves all extremities and no focal motor deficits Sensorium / Orientation: awake and alert Speech: speech normal Motor Exam: strength 5/5 throughout Psych affect normal Weight / BMI Weight Weight: 84.5 kg Body Mass Index (BMI) 29.9 ABG / Lab / Microbiology Data Result Diagrams: 03/27/21 08:41 03/27/21 08:41 Laboratory: Laboratory Results - last 24 hr 03/27/21 08:41: WBC 7.6, RBC 3.60 L, Hgb 12.7, Hct 38.7, MCV 107.5 H, MCH 35.3 H , MCHC 32.8, RDW Std Deviation 52.3 H, RDW Coeff of Juanpablo 13.1, Plt Count , MPV 11.2, Immature Gran % (Auto) 0.300, Neut % (Auto) 67.5, Lymph % (Auto) 22.8, [place] % (Auto) 7.9, Eos % (Auto) 1.2, Baso % (Auto) 0.3, Absolute Neuts (auto) 5.1, Absolute Lymphs (auto) 1.73, Nucleated RBC % 0, Platelet Estimate ADEQUATE 03/27/21 08:41: Sodium 137, Potassium 4.2, Chloride 110 H, Carbon Dioxide 22.0, Anion Gap 5, BUN 16, Creatinine 0.52 L, Estim Creat Clear Calc 41.05, Est GFR (MDRD) Af Amer 147, Est GFR (MDRD) Non-Af 122, BUN/Creatinine Ratio 30.9 H, Glucose 104, Calcium 8.8 Radiography Diagnostic Testing: Radiology Impression Echocardiogram 03/25/21 19:52 Interpretation Summary The study was technically difficult. Contrast injection was performed. Moderately severe segmental systolic dysfunction (see wall motion). The estimated ejection fraction is 35 %. The left atrium is mildly enlarged. There is mild mitral annular calcification. Extension the mitral annular calcification onto the base of the posterior mitral valve leaflet. Mild (1+) mitral valve insufficiency. Mild tricuspid valve insufficiency. Mild focal aortic valve calcification. Right ventricular systolic pressure estimated to be 33 mmHg. Transmitral diastolic flow velocities suggest diastolic dysfunction (pseudonormal pattern). Comment: 2D echocardiographic images of the left ventricle, with respect to wall motion, are potentially compatible with an underlying Takotsubo syndrome/apical ballooning syndrome. Ordering Physician: Tsering Mckeon Referring Physician: Juan J Hi M.D. Performed By: Renaldo Montilla RCS D/C Instructions Discharge Diet: Low fat / Low cholesterol and 2000 mg Sodium Diet Discharge Activity: Return to Normal Activity Meaningful Use Info Meaningful Use Diagnoses (Choose all that apply): CHF CHF ELINA/ARB ordered at discharge?: Yes Documented LVEF (%): 35 Discharge Plan Admission Admit Date/Time: 03/25/21 13:35 Primary Reason for Your Visit: Takotsubo Cardiomyopathy Attending Provider: Lizbeth Goodson Primary Care Provider: Juan J Hi Consulting Providers: Katrina Sarah Discharge Orders/Prescriptions Prescriptions: New carvedilol 12.5 mg Tablet 12.5 mg PO BID Qty: 60 RF: 0 Continued nitroglycerin 0.4 mg tablet, sublingual 0.4 mg SUBLINGUAL Q5-15M Qty: 25 RF: 5 tramadol 50 mg Tablet 50 mg PO Q4H PRN (Reason: Pain) RF: 0 oxybutynin chloride 10 mg tablet extended release 24hr 10 mg PO DAILY RF: 0 lisinopril 10 mg tablet 10 mg PO DAILY RF: 0 cholecalciferol (vitamin D3) 125 mcg (5,000 unit) Capsule 125 mcg PO DAILY RF: 0 aspirin [Adult Low Dose Aspirin] 81 mg tablet,delayed release (DR/EC) 81 mg PO DAILY RF: 0 atorvastatin 40 mg tablet 40 mg PO QHS Qty: 90 RF: 3 Discontinued metoprolol succinate [Toprol XL] 50 mg tablet extended release 24 hr 50 mg PO DAILY Qty: 90 RF: 3 Referrals / Follow Up: Juan J Hi MD [Primary Care Provider] - In 1 Week Regina Rock PA [PHYSICIAN BAG HANGER] - 05/11/22 8:30 am Disposition Disposition (needs filled in before D/C Order can be placed): Home Health Service Charges/Coding Visit Charges Inpatient E&M: 08982 Disch Hosp
--- NOTE | 2021-03-27 14:25 | PCM.DC ---
Discharge Instructions Diet Discharge Diet: Low fat / Low cholesterol and 2000 mg Sodium Diet Activity Discharge Activity: Return to Normal Activity Additional Activity Instructions:: please weigh yourself daily and if weight increases more than 3 pounds in 24 hours call your senior analysis specialist Follow Up Care Test Results: Test results from this visit will be discussed in further detail at your follow-up appointment, if applicable. Discharge Plan Admission Admit Date/Time: 03/25/21 13:35 Primary Reason for Your Visit: Takotsubo Cardiomyopathy Attending Provider: Lizbeth Goodson Primary Care Provider: Juan J Hi Consulting Providers: Katrina Sarah Discharge Orders/Prescriptions Prescriptions: New carvedilol 12.5 mg Tablet 12.5 mg PO BID Qty: 60 RF: 0 Continued nitroglycerin 0.4 mg tablet, sublingual 0.4 mg SUBLINGUAL Q5-15M Qty: 25 RF: 5 tramadol 50 mg Tablet 50 mg PO Q4H PRN (Reason: Pain) RF: 0 oxybutynin chloride 10 mg tablet extended release 24hr 10 mg PO DAILY RF: 0 lisinopril 10 mg tablet 10 mg PO DAILY RF: 0 cholecalciferol (vitamin D3) 125 mcg (5,000 unit) Capsule 125 mcg PO DAILY RF: 0 aspirin [Adult Low Dose Aspirin] 81 mg tablet,delayed release (DR/EC) 81 mg PO DAILY RF: 0 atorvastatin 40 mg tablet 40 mg PO QHS Qty: 90 RF: 3 Discontinued metoprolol succinate [Toprol XL] 50 mg tablet extended release 24 hr 50 mg PO DAILY Qty: 90 RF: 3 Referrals / Follow Up: Juan J Hi MD [Primary Care Provider] - In 1 Week Reigna Rock PA [PHYSICIAN SALVATIONIST] - 05/11/22 8:30 am Disposition Disposition (needs filled in before D/C Order can be placed): Home Health Service
--- NOTE | 2021-03-27 15:06 | TREXTCAR_ITS ---
Diet 03/25/21 19:53 Diet: Cardiac - Heart Healthy Food consistency:: Regular Liquid Consistency:: Regular/Thin Routine Orders/Code Status Suppository Frequency: Daily PRN O2 Liters per Minute: 2 O2 Frequency: PRN Routine Lab Work: CBC and BMP Code Status: Full Code Wound(s) rt groin: Wound Type: Puncture rw: Wound Type: Puncture Suggestions for Active Care Change Position every (hours): 2 Times a day to sit in chair: 2 Therapies Weight Bearing: Full weight bearing Physical Therapy: Eval and Treat Occupational Therapy: Eval and Treat Problem/Diagnosis (1) Takotsubo cardiomyopathy: Status: Acute (2) Atherosclerosis of coronary artery of [place] heart without angina pectoris: Status: Chronic (3) History of coronary artery stent placement: Status: Resolved Comment: PCI-ROMEO-Mid LAD w/ 2.5 x 23 mm Promus Stent 11/22/2011 (4) Hyperlipidemia: Status: Chronic (5) Essential (primary) hypertension: Status: Chronic Allergies/Procedures Done in Hospital Allergies No Known Allergies Allergy (Verified 03/25/21 12:20) Procedures: 2-D Echocardiogram and Cardiac catheterization Type of Care/Length of Stay Estimated LOS: Convalescent Care Less Than 30 days Type of Care Needed: Skilled Rehab Potential: Good Prognosis: Good Additional Orders/Day of Discharge Day of Discharge: 03/27/21 Discharge Plan Admission Admit Date/Time: 03/25/21 13:35 Primary Reason for Your Visit: Takotsubo Cardiomyopathy Attending Provider: Lizbeth Goodson Primary Care Provider: Juan J Hi Consulting Providers: Katrina Sarah Discharge Orders/Prescriptions Prescriptions: New carvedilol 12.5 mg Tablet 12.5 mg PO BID Qty: 60 RF: 0 Continued nitroglycerin 0.4 mg tablet, sublingual 0.4 mg SUBLINGUAL Q5-15M Qty: 25 RF: 5 tramadol 50 mg Tablet 50 mg PO Q4H PRN (Reason: Pain) RF: 0 oxybutynin chloride 10 mg tablet extended release 24hr 10 mg PO DAILY RF: 0 lisinopril 10 mg tablet 10 mg PO DAILY RF: 0 cholecalciferol (vitamin D3) 125 mcg (5,000 unit) Capsule 125 mcg PO DAILY RF: 0 aspirin [Adult Low Dose Aspirin] 81 mg tablet,delayed release (DR/EC) 81 mg PO DAILY RF: 0 atorvastatin 40 mg tablet 40 mg PO QHS Qty: 90 RF: 3 Discontinued metoprolol succinate [Toprol XL] 50 mg tablet extended release 24 hr 50 mg PO DAILY Qty: 90 RF: 3 Referrals / Follow Up: Juan J Hi MD [Primary Care Provider] - In 1 Week Regina Rock PA [PHYSICIAN PRINTED CIRCUIT BOARD DESIGNER] - 05/11/22 8:30 am Disposition Disposition (needs filled in before D/C Order can be placed): Home Health Service
--- NOTE | 2021-03-27 15:34 | CM.ED ---
SW Note Referral Source: Case Management Referral Reason: Referral to TCU SW was advised that MD Sanchez had stated that patient could come to Rehab. SW spoke to Eliza in admission and reviewed patient's insurance and medication list. Per Eliza patient was able to be admitted to TCU today. felter tennis balls Amisha updated. No further SW needs at this time. Plan: Admit to TCU [facility]
--- NOTE | 2021-03-27 15:53 | NURSING ---
Report called to Fouzia STEINBERG in TCU
== END 2021-03-27 16:29 | disposition skilled nursing facility (03) | DRG 281 ==
LOC: ED 13:32 → PCU 13:51 → ICU 03-26 09:47
PROVIDERS: Specialist; Admitting Provider Family Medicine; Emergency Provider Emergency Medicine; PCP Internal Medicine; Visit Provider Internal Medicine
DX: I21.4 Non-ST elevation (NSTEMI) myocardial infarction (principal); S32.049A Unspecified fracture of fourth lumbar vertebra, initial encounter for closed fracture; X58.XXXA Exposure to other specified factors, initial encounter; I11.9 Hypertensive heart disease without heart failure; I25.10 Atherosclerotic heart disease of native coronary artery without angina pectoris; I25.2 Old myocardial infarction; E78.5 Hyperlipidemia, unspecified; E55.9 Vitamin D deficiency, unspecified; R32 Unspecified urinary incontinence; Z63.6 Dependent relative needing care at home; Z95.5 Presence of coronary angioplasty implant and graft; Z79.02 Long term (current) use of antithrombotics/antiplatelets; Z79.82 Long term (current) use of aspirin; Z79.899 Other long term (current) drug therapy
CPT/HCPCS: 36415; 71045; 80048; 80053; 80061; 83036; 83735; 84145; 84484; 85025; 85379; 93005; 93306; 93458; 93571; 97110; 97163; 97166; 97535; 99251; 99285; J0153; J7030; J7040; Q9957; Q9967; A4216; C1769; C1887; C1894; C8929; G0463; J2405; J3490

== ENCOUNTER 2021-03-27 16:37 | Inpatient (IN) | payer MEDICARE, OTHER, SELFPAY ==
[2021-03-25 16:27] VITALS: BMI 29.9
[2021-03-27 16:46] VITALS: BP 100/57; PULSE 97; RESP 16; TEMP 36.2; O2SAT 94; BMI 35.6
[2021-03-27] MEDS: Carvedilol 12.5 MG Tablet PO (18:24)
[2021-03-27 23:20] VITALS: O2SAT 95
[2021-03-27] MEDS: Atorvastatin Calcium 40 MG Tablet PO (23:23)
[2021-03-27] MEDS: Mirtazapine 30 MG Tablet PO (23:23)
[2021-03-27] MEDS: traMADol 50 MG Tablet PO (23:23)
[2021-03-28 05:09] LABS: Absolute Neutrophil Count 3.9 X10^3/uL (2.0-7.7); Basophil# 0.02 X10^3/uL; Basophil% 0.3 % (0-1); Eosinophil# 0.23 X10^3/uL; Eosinophils% 3.6 % (0-5); Hematocrit 38.7 % (37-47); Hemoglobin 12.7 g/dL (12.0-15.0); Lymphocyte % 26.9 % (19-41); Mean Corp Hgb Conc 32.8 g/dL (32-36); Mean Corpuscular Hgb 35.9 pg (27.0-32.0); Mean Corpuscular Volume 109.3 fL (81-99); Mean Platelet Vol. 10.9 fl (6.2-12.0); Monocyte# 0.45 X10^3/uL; Monocyte% 7.1 % (0-10); NRBC Flagged by Analyzer 0 % (0-5); Neutrophil # 3.91 X10^3/uL (2.7-7.7); Neutrophil % 61.8 % (47-70); Platelet Count 179 K/mm3 (150-450); RBC Distribution Width CV 13.1 % (11.6-14.6); RBC Distribution Width SD 52.1 fl (35.1-43.9); Red Blood Count 3.54 M/mm3 (4.2-5.4); White Blood Count 6.3 K/mm3 (4.4-11.0)
[2021-03-28 06:42] LABS: Anion Gap 8 (5-15); BUN 14 mg/dL (7-18); BUN/Creat Ratio 28.7 RATIO (10-20); Calcium,Total 8.3 mg/dL (8.5-10.1); Chloride 111 mmol/L (98-107); Creatinine, Serum 0.49 mg/dL (0.55-1.02); EST Glomerular Filtration Rate 130 mL/min (>60); Est Glom Filt Rate - Afr Amer 157 mL/min (>60); Estimated Creatinine Clearance 32.77 ml/min; Glucose 72 mg/dL (74-106); Potassium 3.9 mmol/L (3.5-5.1); Sodium Level 136 mmol/L (136-145)
[2021-03-28] MEDS: Nystatin Powder 15gm Bottle 1 APPLIC TOPICAL ×2 (09:18→18:01)
[2021-03-28] MEDS: Menthol/Lanolin/Calamine/Znox 113 GM Tube 1 APPLIC TOPICAL ×2 (09:19→18:03)
[2021-03-28] MEDS: Tolterodine Tartrate 2 MG CAP.SA PO (09:20)
[2021-03-28] MEDS: Cholecalciferol (VIT D3) 25 MCG TABLET (1,000 UNITS) 125 MCG PO (09:21)
[2021-03-28] MEDS: Aspirin E.C. 81 MG Tablet PO (09:21)
[2021-03-28] MEDS: Lisinopril 10 MG Tablet PO (09:22)
[2021-03-28] MEDS: Carvedilol 12.5 MG Tablet PO ×2 (09:22→18:01)
[2021-03-28] MEDS: traMADol 50 MG Tablet PO ×3 (09:28→21:49)
--- NOTE | 2021-03-28 12:08 | HP.PCM_ITS ---
HPI - General General Date of Admission: 03/27/21 Chief Complaint: Flu-like symptoms, r/o COVID-19 HPI Narrative BREANNA JACINTO, is a 80 YO F with a PMH of hypertension, hyperlipidemia, coronary artery disease with history of PCI, recent L4 compression fracture, vitamin D deficiency and urinary incontinence who presented to the [facility] emergency department on 03/25/2021 complaining of chest pain, nausea, shortness of breath and vomiting. She was ultimately taken to the [facility] where cardiac catheterization revealed no significant coronary artery disease. The ejection fraction was diminished at 35%. She was diagnosed with probable Takotsubo's cardiomyopathy. She was maintained on her regular home medications with the exception of her metoprolol which was discontinued. She was started on carvedilol 12.5 mg twice daily. She was discharged to the transitional care unit on 03/27/2021 for therapy to restore her at or near her prior level of independence and function. 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 (11/22/11) Home Medications aspirin 81 mg tablet,delayed release 81 mg PO DAILY 04/25/18 [History Last Taken 03/24/21] cholecalciferol (vitamin D3) 125 mcg PO DAILY 03/25/21 [History Last Taken 03/24/21] lisinopril 10 mg PO DAILY 03/25/21 [History Last Taken 03/24/21] oxybutynin chloride 10 mg PO DAILY 03/25/21 [History Last Taken 03/24/21] tramadol 50 mg PO Q4H PRN 03/25/21 [History Last Taken 03/25/21 10:30] atorvastatin 40 mg PO QHS 03/27/21 [History Last Taken Unknown] carvedilol 12.5 mg PO BID 03/27/21 [History Last Taken Unknown] mirtazapine [Remeron] 30 mg PO QHS 03/27/21 [History Last Taken Unknown] nitroglycerin 0.4 mg SUBLINGUAL Q5-15M 03/27/21 [History Last Taken Unknown] Allergy/AdvReac Type Severity Reaction Status Date / Time No Known Allergies Allergy Verified 03/25/21 12:20 Family History Mother CAD (coronary artery disease) Myocardial infarction Brother CAD (coronary artery disease) Myocardial infarction Brother Cancer Sister Heart disease Surgical History History of bilateral tubal ligation History of coronary artery stent placement (11/22/11) History of left heart catheterization (03/25/21) Social History household members: spouse Smoking Status: Never smoker alcohol intake: never substance use type: does not use ROS Constitutional Constitutional: Reports fatigue and other Details: She has lost 20 lbs over the past couple months. No appetite ; Denies anorexia, change in weight or weakness Eyes Eyes: Denies blurry vision, change in vision, eye pain or loss of vision ENT HEENT: Denies abnormal hearing, dysphagia, headache(s), hearing loss, nasal congestion or sore throat Cardiovascular Cardiovascular: Reports dyspnea on exertion and leg edema; Denies chest pain Respiratory/Chest Respiratory/Chest: Reports dyspnea, shortness of breath at rest, shortness of breath with exertion and other Details: She tells me her breathing feels heavy even when she is seated in a chair. ; Denies cough or wheezing Gastrointestinal Gastrointestinal: Reports other Details: she is c/o a decrease in appetite and is not eating much ; Denies abdominal pain, constipation, diarrhea, dyspepsia, hematemesis, hematochezia, nausea or vomiting Genitourinary Genitourinary: Denies dysuria, hematuria, nocturia, urinary frequency, urinary hesitancy, urinary incontinence or urinary urgency Musculoskeletal Musculoskeletal: Reports joint pain and stiffness; Denies back pain, joint swelling or neck pain Integumentary Integumentary: Denies jaundice, pruritus or rash Neurologic Neurologic: Denies confusion, disequilibrium, dizziness, focal weakness, headache(s), paresthesias, seizures or tremor(s) Psychiatric Psychiatric: Reports anhedonia, anxiety, change in appetite, depression, hopelessness and other Details: She has been caring for her who has advanced dementia for many years and recently he had a behavioral change and is angry and belligerent. This upsets her because he has always been a loving man. Her children have not really been involved with the care of their father. She tells me that they do not have a lot of money and she is worried about how they are going to make it. ; Denies homicidal ideation, suicidal ideation or suicidal thoughts Endocrine Endocrinology: Reports change in body appearance; Denies polydipsia or polyuria Hematologic/Lymphatic Hematologic/Lymphatic: Denies easy bleeding, easy bruising or lymphadenopathy Allergic/Immunologic Allergic/Immunologic: Denies rhinitis, eczemia or asthma Vital Signs Vital Signs Vital Signs: 03/27/21 16:46 03/27/21 23:20 Temperature 97.1 F L Temperature Source Temporal Pulse Rate 97 Pulse Rhythm Regular Pulse Strength Normal (2+) Respiratory Rate 16 Respiratory Effort Normal Short of Breath Respiratory Depth Shallow Respiratory Pattern Normal Blood Pressure 100/57 L Blood Pressure Mean 71 Blood Pressure Source Monitor Blood Pressure Position Supine Blood Pressure Location Right Arm Pulse Ox 94 95 Oxygen Delivery Method Room Air Nasal Cannula Oxygen Flow Rate (L/min) 1 Weight Weight: 182 lb 12.211 oz Body Mass Index (BMI) 35.6 Physical Exam Const alert and oriented x3 Constitutional Narrative: Making good eye contact until she started crying and then she loked away. General Appearance: cooperative, well kempt, well developed and anxious HEENT HEENT Narrative: Dry mucous membranes Eyes PERRL, EOMs intact bilaterally and no scleral icterus Neck no lymphadenopathy, supple and no JVD General: trachea midline Chest Chest: symmetrical chest wall rise Resp normal respiratory effort, no use of accessory muscles and clear to auscultation bilaterally Resp Narrative: Not tachypneic and no conversational dyspnea. Cardio regular rate, regular rhythm, S1 normal heart sound, S2 normal heart sound, no murmurs, no rub and no gallops GI normal to inspection, nondistended, normoactive bowel sounds and non-tender GI Narrative: No guarding with palpation. Extremity no clubbing, cyanosis or edema Extremity Narrative: Negative Romel's and Andrew's signs Skin Skin Narrative: No rashes, no skin breakdown. Neuro oriented x3, CN's II-XII intact bilaterally and no focal motor deficits Motor Exam: strength 5/5 throughout Psych affect normal Psych Narrative: She is having trouble sleeping. She wakes up frequently and sometimes can not go back to sleep. Her appetite is poor and she has lost about 20 lbs in the past 1-2 months and it is unintentional. She is crying easily and feeling overwhelmed. 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 She was very tearful when we started talking her and how she feels now. She denies suicidal or homicidal ideation. Results Lab / Micro Data Result Diagrams: 03/28/21 04:44 03/30/21 05:34 Labs: Laboratory Results - last 24 hr 03/28/21 04:44: WBC 6.3, RBC 3.54 L, Hgb 12.7, Hct 38.7, MCV 109.3 H, MCH 35.9 H , MCHC 32.8, RDW Std Deviation 52.1 H, RDW Coeff of Juanpablo 13.1, Plt Count 179, MPV 10.9, Immature Gran % (Auto) 0.300, Neut % (Auto) 61.8, Lymph % (Auto) 26.9, [place] % (Auto) 7.1, Eos % (Auto) 3.6, Baso % (Auto) 0.3, Absolute Neuts (auto) 3.9, Absolute Lymphs (auto) 1.70, Nucleated RBC % 0 03/28/21 04:44: Sodium 136, Potassium 3.9, Chloride 111 H, Carbon Dioxide 17.0 L , Anion Gap 8, BUN 14, Creatinine 0.49 L, Estim Creat Clear Calc 32.77, Est GFR (MDRD) Af Amer 157, Est GFR (MDRD) Non-Af 130, BUN/Creatinine Ratio 28.7 H, Glucose 72 L, Calcium 8.3 L Micro: Microbiology 03/27/21 16:48 Mucosa - Nose SARS-CoV-2 Antigen (Rapid) - Final Assessment & Plan Assessment/Plan (1) Non-ST elevated myocardial infarction: (2) Takotsubo cardiomyopathy: (3) History of left heart catheterization: (4) History of coronary artery stent placement: (5) 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 she is asymptomatic and she had no hx of PUD and a normal HGB DVT prophylaxis with enoxaparin Follow up with Dr. Hi and [facility] following DC from TCU Start Remeron 15 mg at 6 PM nightly Start Buspar 5 mg BID for anxiety. She would benefit from psychotherapy in addition to medication - will discuss with the SW She needs help at home and can not manage her by herself. SW is going to meet with her dtr and discuss options. Charges/Coding Visit Charges Inpatient E&M: 26047 Init Hosp L3
[2021-03-28] MEDS: Tuberculin,Purif.prot.deriv. 50 TU/ML Vial 0.1 ML ID (13:24)
[2021-03-28 14:26] VITALS: BP 104/53; PULSE 87; RESP 16; TEMP 36.6; O2SAT 97
[2021-03-28 15:08] VITALS: PULSE 78; RESP 18; O2SAT 98
[2021-03-28] MEDS: Atorvastatin Calcium 40 MG Tablet PO (21:48)
[2021-03-28] MEDS: Mirtazapine 30 MG Tablet PO (21:49)
[2021-03-29 06:16] VITALS: BP 142/43; PULSE 76; RESP 16; TEMP 35.9; O2SAT 95
[2021-03-29] MEDS: Tolterodine Tartrate 2 MG CAP.SA PO (06:20)
[2021-03-29] MEDS: Carvedilol 12.5 MG Tablet PO ×2 (06:20→17:48)
[2021-03-29] MEDS: traMADol 50 MG Tablet PO (06:20)
[2021-03-29] MEDS: Lisinopril 10 MG Tablet PO (06:20)
[2021-03-29] MEDS: Menthol/Lanolin/Calamine/Znox 113 GM Tube 1 APPLIC TOPICAL ×2 (06:28→20:53)
[2021-03-29] MEDS: Nystatin Powder 15gm Bottle 1 APPLIC TOPICAL ×2 (06:28→20:53)
[2021-03-29] MEDS: Aspirin E.C. 81 MG Tablet PO (09:11)
[2021-03-29] MEDS: Cholecalciferol (VIT D3) 25 MCG TABLET (1,000 UNITS) 125 MCG PO (09:12)
[2021-03-29 14:52] VITALS: BP 104/51; PULSE 83; RESP 16; TEMP 36.4; O2SAT 96
--- NOTE | 2021-03-29 16:34 | CASEMGMT ---
Social Work SW met with pt to complete initial assessment. Pt tearful throughout conversation. 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 Pt expressing feeling overwhelmed with caregiving task but deep sadness with need to place pt in nursing facility. Pt called her dgt Srinivas during SW conversation and asked SW to speak with her. Srinivas states she has been caring for pt since pt admission and it is increasingly difficult. Meeting set with pt and dgt tomorrow at 2:30 to assist in understanding and making plans for pt 's need for ECF/AL placement. Pt appreciative of plan and feeling better when SW left room. RHIANNON Arevalo
[2021-03-29] MEDS: 0.9% Saline Lock 10 ML Syringe IV (17:49)
--- NOTE | 2021-03-29 17:53 | NURSING ---
PT GAVE THIS NURSE $50 TO PUT IN MED BOX FOR A HAIR CUT.
--- NOTE | 2021-03-29 19:58 | PCM.RU.PYE ---
Admission Information Primary Diagnosis:: Debility due to NSTEMI and Takotsubo's cardiomyopathy. Status Changes from Prescreening?: No changes Identified Actual Problem List:: Depression, Alteration in Nutrition, Mobility Impaired, Self Care Deficit, Know.Dfct of Medicaitons, BP, Hypertension, Fluid Change-Dehydration and Alteration-Leisure Activ. Potential Problem List:: DVT, Bleeding, Infection, UTI, Aspiration, Falls, Skin Integrity and Depression Risk of Complications DVT: LMWH and JANY Hose Bleeding: Monitor Lab Values, Nursing to Teach Precautions for anti-coagulation therapy., Wound, if applicable, to be assessed every shift. and Stroke patients assessed for lethargy or change in status. Infection: Clinical Staff to Monitor for S/S of infection: and S/S of infection include fever, redness, warmth, etc. Urinary Tract Infection: Monitor for frequency, burning, discomfort, or incontinence. and Nursing will obtain urine sample for urinalysis and C&S when ordered. Aspiration: Clinical staff will monitor for coughing, drooling, congestion., Speech will evaluate swallowing and dsyphasia. and Nursing will monitor patient swallowing during meals. Falls: Patient will be evaluated for Fall Precautions and Patient will be placed on Fall Precautions as indicated per protocol. Skin Breakdown: Nursing will assess skin daily using assessment tool. and Nursing will place on Skin Breakdown Precautions as indicated. Pain: Clinical staff will assess patient's pain level per protocol., Medications will be given, if needed, and the pain level reassessed. and Other methods: Massage, distraction, decrease stimulus, etc. used PRN. Plan of Care Patient requires physician specializing in physical medicine and rehab oversight to provide close medical supervision of rehab issues including: Pain Management, Sleep Problems, Bowel and Bladder, Medical and co-morbidity Management, DVT prophylaxis, Rehabilitation Leadership and Coordination of treatment team Patient needs Physical Therapy: For a minimum of 1 hour and At least 5 out of 7 days Patient needs Physical Therapy to improve:: Mobility, Strengthening, Transfers, Stretching, ROM, Endurance, Stairs, Gait and Balance Patient needs Occupational Therapy: For a minimum of 1 hour and At least 5 out of 7 days Patient needs Occupational Therapy to improve ADL's incl.: Eating, Grooming, Bathing, Dressing, Toileting, Toilet transfers, Community Reintegration, Higher functioning activities, Household tasks, Adaptive Equipment, Splinting and Other activities as determined Patient requires 24/7 Rehabilitation Nursing for: Pain Issues, Identifying and preventing risk factors, Monitoring and reporting current medical conditions, Assisting with ambulation, transfer, and all ADL's, Teaching patients about disease process and medications, Family teaching, Providing safe environment, Bowel and Bladder Issues, Skin integrity and Medication Management Patient needs Gunite Nozzle Operator/ Case Management for: Discharge Planning, Arranging Home Equipment or Services and Family Interventions Patient needs Dietary and Nutrition Services for: Adequate Nutrition, Nutritional Supplements and Nutritional Education Goals Patient will remain: free from falls and or injury at time of discharge. Patient will perform bed mobility at: MOD I level of assist. Patient will complete transfers from bed to chair at: MOD I level of assist. Patient will ambulate: 100 feet and with LRD Patient will complete upper body dressing at: MOD I level of assist. Patient will complete lower body dressing at: MOD I level of assist. Patient will complete toileting at: MOD I level of assist. Patient will perform bathing at: MOD I level of assist. Patient will complete grooming at: MOD I level of assist. Patient will complete home management skills at: MOD I level of assist. Patient will achieve: - (1 curb step) Patient will have pain level of: of 3 or less Patient's skin will: remain intact Patient will receive: adequate nutrition. Discharge Planning Pt Prognosis for Sig. Practical Improv. w/in Reasonable Time: Good Estimated Length of stay (days): 10 Anticipated D/C Destination: Home Was Preadmission Assessment Accurate?: Yes
[2021-03-29] MEDS: Mirtazapine 30 MG Tablet PO (20:53)
[2021-03-29] MEDS: Atorvastatin Calcium 40 MG Tablet PO (20:53)
[2021-03-29 22:00] VITALS: PULSE 84; O2SAT 96
[2021-03-30 06:21] VITALS: BP 132/73; PULSE 78; RESP 18; TEMP 36.6; O2SAT 95
[2021-03-30] MEDS: Nystatin Powder 15gm Bottle 1 APPLIC TOPICAL ×2 (06:22→18:02)
[2021-03-30] MEDS: Menthol/Lanolin/Calamine/Znox 113 GM Tube 1 APPLIC TOPICAL ×2 (06:22→18:02)
[2021-03-30] MEDS: Lisinopril 10 MG Tablet PO (06:22)
[2021-03-30] MEDS: Enoxaparin 40 MG/0.4 ML Syringe SC (06:22)
[2021-03-30] MEDS: Tolterodine Tartrate 2 MG CAP.SA PO (06:22)
[2021-03-30 06:27] LABS: Anion Gap 5 (5-15); BUN 13 mg/dL (7-18); BUN/Creat Ratio 22.5 RATIO (10-20); Calcium,Total 8.9 mg/dL (8.5-10.1); Chloride 110 mmol/L (98-107); Creatinine, Serum 0.58 mg/dL (0.55-1.02); EST Glomerular Filtration Rate 107 mL/min (>60); Est Glom Filt Rate - Afr Amer 129 mL/min (>60); Estimated Creatinine Clearance 32.77 ml/min; Glucose 98 mg/dL (74-106); Potassium 4.1 mmol/L (3.5-5.1); Sodium Level 142 mmol/L (136-145)
[2021-03-30] MEDS: traMADol 50 MG Tablet PO (06:28)
[2021-03-30] MEDS: Carvedilol 12.5 MG Tablet PO ×2 (08:26→16:28)
[2021-03-30] MEDS: Cholecalciferol (VIT D3) 25 MCG TABLET (1,000 UNITS) 125 MCG PO (08:26)
[2021-03-30] MEDS: Aspirin E.C. 81 MG Tablet PO (08:26)
--- NOTE | 2021-03-30 12:44 | NURSING ---
Remeron 30mg changed to 6pm per Dr. Vidales, and N.O. buspar 5mg BID, Dr. Vidales instructed to give 1x dose of buspar now and then resume current schedule for anxiety.
[2021-03-30] MEDS: busPIRone 5 MG Tablet PO ×2 (13:21→16:28)
[2021-03-30 15:15] VITALS: BP 123/56; PULSE 77; RESP 16; TEMP 36.3; O2SAT 95
--- NOTE | 2021-03-30 16:34 | CHAPLAIN ---
Type of Pastoral Visit ___ Initial Visit ___ Follow-up Visit ___ On-call Visit ___ General Patient Visit ___ Spiritual Assessment ___ Family Conference ___ Bereavement ___ Rapid Response ___ Code Blue ___ Other (describe below) Pastoral Care Referral From ___ Patient ___ Family ___ Nurse ___ Physician ___ Acid Etch Operator ___ Dresser Tender ___ Other (describe below) Sacrament/Intervention ___ Active listening ___ Anointing ___ Synagogue ___ Bereavement ___ Communion ___ Lydia exploration ___ ___ Life review ___ Prayer ___ Reconciliation ___ Sacrament of Sick ___ Supportive presence ___ Wedding ___ Other (describe below) Pastoral Comments patient had SW and family members that have visited today; introductions made and offer to return another time is accepted by pt
--- NOTE | 2021-03-30 16:42 | CASEMGMT ---
Social Work SW met with pt, pt dgt Srinivas and pt son Srini to discuss placement for pt whom pt is the primary caregiver for. SW provided information regarding ECF and AL including information on Memory care units. Pt indicates finances are limited and SW explained Medicaid and process and provided Medicaid applications. SW did explain process for getting pt spouse placed in a facility. Pt is hopeful she can return home alone at time of discharge. Pt and family appreciative of information. SW will continue to follow for d/c planning and emotional support. RHIANNON Arevalo
--- NOTE | 2021-03-30 16:45 | NURSING ---
SL pulled from left wrist, catheter tip intact, pt tolerated well.
[2021-03-30] MEDS: Mirtazapine 30 MG Tablet PO (18:01)
[2021-03-30] MEDS: Atorvastatin Calcium 40 MG Tablet PO (21:41)
--- NOTE | 2021-03-31 06:12 | NURSING ---
Patient rang to use restroom. Patient diaphoretic, cool and clammy. Blood glucose obtained and 104 mg/dL. Patient denies any symptoms. Assisted to restroom x1 SBA. Gait normal. Changed gown d/t being saturated from sweat.
[2021-03-31 06:25] VITALS: BP 139/71; PULSE 75
[2021-03-31] MEDS: Tolterodine Tartrate 2 MG CAP.SA PO (06:26)
[2021-03-31] MEDS: Enoxaparin 40 MG/0.4 ML Syringe SC (06:26)
[2021-03-31] MEDS: Lisinopril 10 MG Tablet PO (06:26)
[2021-03-31] MEDS: Nystatin Powder 15gm Bottle 1 APPLIC TOPICAL ×2 (06:28→20:32)
[2021-03-31] MEDS: Menthol/Lanolin/Calamine/Znox 113 GM Tube 1 APPLIC TOPICAL ×3 (06:28→20:31)
[2021-03-31 06:46] LABS: Bedside Glucose 104 mg/dL (70-110)
[2021-03-31] MEDS: Cholecalciferol (VIT D3) 25 MCG TABLET (1,000 UNITS) 125 MCG PO (08:21)
[2021-03-31] MEDS: Carvedilol 12.5 MG Tablet PO ×2 (08:21→17:50)
[2021-03-31] MEDS: Aspirin E.C. 81 MG Tablet PO (08:23)
[2021-03-31] MEDS: busPIRone 5 MG Tablet PO ×2 (08:23→15:25)
[2021-03-31 08:30] VITALS: BP 132/78; PULSE 83
--- NOTE | 2021-03-31 11:44 | NURSING ---
PT ASKED FOR HER $50 OUT OF MED BOX FOR HAIR CUT TODAY. THIS NURSE GAVE THE $50 TO PT.
--- NOTE | 2021-03-31 15:34 | NURSING ---
PSV-23 GIVEN IN RIGHT DELT. PT TOLERATED WELL.
[2021-03-31 15:41] VITALS: BP 120/55; PULSE 78; RESP 16; TEMP 36.4; O2SAT 96
--- NOTE | 2021-03-31 15:46 | CHAPLAIN ---
Type of Pastoral Visit ___ Initial Visit _x__ Follow-up Visit ___ On-call Visit ___ General Patient Visit ___ Spiritual Assessment ___ Family Conference ___ Bereavement ___ Rapid Response ___ Code Blue ___ Other (describe below) Pastoral Care Referral From _x__ Patient ___ Family ___ Nurse ___ Physician ___ Flame Brazing Machine Operator ___ Photo Tube Assembler ___ Other (describe below) Sacrament/Intervention _x__ Active listening ___ Anointing ___ Adventist ___ Bereavement ___ Communion _x__ Lydia exploration ___ _x__ Life review _x__ Prayer ___ Reconciliation ___ Sacrament of Sick _x__ Supportive presence ___ Wedding ___ Other (describe below) Pastoral Comments follow up to a brief introduction yesterday; pt has concerns about placing her spouse in an ECF due to his dementia and her growing inability to care for him at home; pt and spouse are 60 years; pt formally was active in [employer] but has not been to hindu in a few years so feels disconnected; pt welcomes spiritual care and emotional support along with prayer
--- NOTE | 2021-03-31 17:48 | NURSING ---
LEFT OVER MONEY FROM HAIR CUT GIVEN TO FAMILY MEMBER PER PT REQUEST IN ROOM.
[2021-03-31] MEDS: Mirtazapine 30 MG Tablet PO (20:29)
[2021-03-31] MEDS: Atorvastatin Calcium 40 MG Tablet PO (20:29)
[2021-03-31 20:37] VITALS: PULSE 77; RESP 16; O2SAT 97
[2021-04-01] MEDS: Menthol/Lanolin/Calamine/Znox 113 GM Tube 1 APPLIC TOPICAL ×2 (07:10→19:53)
[2021-04-01] MEDS: Nystatin Powder 15gm Bottle 1 APPLIC TOPICAL ×2 (07:10→19:55)
[2021-04-01] MEDS: Enoxaparin 40 MG/0.4 ML Syringe SC (07:11)
[2021-04-01] MEDS: Tolterodine Tartrate 2 MG CAP.SA PO (07:11)
[2021-04-01] MEDS: Lisinopril 10 MG Tablet PO (07:11)
[2021-04-01 07:15] VITALS: BP 127/58; PULSE 84; RESP 20; TEMP 36.5; O2SAT 98
[2021-04-01] MEDS: Carvedilol 12.5 MG Tablet PO ×2 (08:41→17:06)
[2021-04-01] MEDS: Aspirin E.C. 81 MG Tablet PO (08:41)
[2021-04-01] MEDS: busPIRone 5 MG Tablet PO ×2 (08:42→15:39)
[2021-04-01] MEDS: Cholecalciferol (VIT D3) 25 MCG TABLET (1,000 UNITS) 125 MCG PO (08:42)
[2021-04-01] MEDS: traMADol 50 MG Tablet PO (09:36)
[2021-04-01 09:49] VITALS: PULSE 92; O2SAT 97
--- NOTE | 2021-04-01 10:06 | NURSING ---
Pt informed this nurse that she spoke with [facility] and they would like her to receive an echocardiogram after she disharges from TCU.
[2021-04-01 12:51] VITALS: BP 146/70; PULSE 81; RESP 16; TEMP 36.2; O2SAT 96
--- NOTE | 2021-04-01 15:00 | PCM.PN.RX ---
Progress Note - Pharmacy Subjective: TCU Admission Objective: Allergies No Known Allergies Allergy (Verified 03/25/21 12:20) Current Medications Generic Name Dose Route Start Last Admin Trade Name Holdenq PRN Reason Stop Dose Admin Aspirin 81 mg 03/28/21 08:00 04/01/21 08:41 Aspirin E.C. 81 Mg Tablet PO 81 mg BREAKFAST SRAVANTHI Administration Atorvastatin Calcium 40 mg 03/27/21 22:00 03/31/21 20:29 Atorvastatin Calcium 40 Mg Tablet PO 40 mg QHS [facility] Administration Bisacodyl 10 mg 03/27/21 16:58 Bisacodyl 10 Mg Suppository RC DAILY PRN Constipation Buspirone HCl 5 mg 03/30/21 15:00 04/01/21 08:42 Buspirone 5 Mg Tablet PO 5 mg 0800,1500 [facility] Administration Calamine/Phenol 1 applic 03/31/21 22:00 04/01/21 07:10 Menthol/Lanolin/Calamine/Znox 113 Gm Tube TOPICAL 1 applic 0600,2200 [facility] Administration Protocol Carvedilol 12.5 mg 03/30/21 08:00 04/01/21 08:41 Carvedilol 12.5 Mg Tablet PO 12.5 mg BIDCM [facility] Administration Cholecalciferol 125 mcg 03/28/21 08:00 04/01/21 08:42 Cholecalciferol (Vit D3) 25 Mcg Tablet (1,000 Units) PO 125 mcg BREAKFAST [facility] Administration Enoxaparin Sodium 40 mg 03/30/21 06:00 04/01/21 07:11 Enoxaparin 40 Mg/0.4 Ml Syringe SC 40 mg DAILY@0600 [facility] Administration Lisinopril 10 mg 03/28/21 06:00 04/01/21 07:11 Lisinopril 10 Mg Tablet PO 10 mg DAILY [facility] Administration Mirtazapine 30 mg 03/30/21 18:00 03/31/21 20:29 Mirtazapine 30 Mg Tablet PO 30 mg QHS [facility] Administration Nitroglycerin 0.4 mg 03/27/21 17:50 Nitroglycerin (Inpatient Use) 0.4 Mg Tab.Subl SL Q5M PRN CARDIAC/CHEST PAIN Nystatin 1 applic 03/31/21 22:00 04/01/21 07:10 Nystatin Powder 15gm Bottle TOPICAL 1 applic 0600,2200 SRAVANTHI Administration Protocol Sodium Chloride 10 - 40 ml 03/27/21 18:37 03/29/21 17:49 0.9% Saline Lock 10 Ml Syringe IV 10 ml UD PRN Administration SALINE FLUSH Tolterodine Tartrate 2 mg 03/28/21 06:00 04/01/21 07:11 Tolterodine Tartrate 2 Mg Cap.Sa PO 2 mg DAILY SRAVANTHI Administration Tramadol HCl 50 mg 03/29/21 20:02 04/01/21 09:36 Tramadol 50 Mg Tablet PO 50 mg Q6H PRN PRN Administration Pain 1-10 Tuberculin PPD 0.1 ml 04/04/21 10:00 Tuberculin,Purif.Prot.Deriv. 50 Tu/Ml Vial ID 04/04/21 10:01 X1 ONE Problem List (Last Reviewed 03/28/21 @ 12:[address] 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) Essential (primary) hypertension (Chronic) Hyperlipidemia (Chronic) Vital Signs Temp Pulse Resp BP Pulse Ox 97.1 F L 81 16 146/70 H 96 04/01/21 12:51 04/01/21 12:51 04/01/21 12:51 04/01/21 12:51 04/01/21 12:51 Oxygen Flow Rate (L/min) 1 Oxygen Delivery Method Room Air Weight: 80.422 kg Body Mass Index (BMI) 35.6 Sodium 142 mmol/L (136-145) 03/30/21 05:34 Potassium 4.1 mmol/L (3.5-5.1) 03/30/21 05:34 Chloride 110 mmol/L (98-107) H 03/30/21 05:34 Carbon Dioxide 27.0 mmol/L (21.0-32.0) 03/30/21 05:34 Anion Gap 5 (5-15) 03/30/21 05:34 BUN 13 mg/dL (7-18) 03/30/21 05:34 Creatinine 0.58 mg/dL (0.55-1.02) 03/30/21 05:34 Est GFR (MDRD) Af Amer 129 mL/min (>60) 03/30/21 05:34 Est GFR (MDRD) Non-Af 107 mL/min (>60) 03/30/21 05:34 BUN/Creatinine Ratio 22.5 RATIO (10-20) H 03/30/21 05:34 Glucose 98 mg/dL (74-106) 03/30/21 05:34 Assessment/Plan: 1. Pain: Tramadol 50mg PO Q6h PRN Pain 1-10. Please continue to monitor for increased/decreased S/S pain, renal function, PRN medication usage. 2. CAD/HTN: Aspirin 81mg PO Daily, Lipitor 40mg PO QHS, Coreg 12.5mg PO BID, Lisinopril 10mg PO Daily, Nitrostat Q5min PRN. Please continue to monitor BP, pulse, S/S bleeding/bruising, Electrolytes, lipid panel annually or sooner if clinically indicated. 3. DVT Prophylaxis: Lovenox 40mg SC Daily. Please continue to monitor renal function, S/S bleeding/bruising. 4. Insomnia: Remeron 30mg PO QHS. Please continue to monitor for medication effectiveness, oversedation. 5. General Wellness: Vitamin D3 125mcg PO Daily. Please continue to monitor vitamin D levels as clinically indicated. Psychotropic Medications: 6. Anxiety: Buspirone 5mg PO BID. Please consider a GDR by 09/2021 if clinically indicated, thank you. Unnecessary Medications: *1. Detrol LA 2mg PO daily. No indication in problem list or in H/P mentioning condition for use. Please evaluate, thank you. Bowel Regimen: Dulcolax 10mg [place] Daily PRN. Please continue to monitor for increased/decreased constipation and/or diarrhea. Date of Note:: 04/01/21
[2021-04-01] MEDS: Senna/Docusate Sodium 1 Tablet 2 TABLET PO (18:28)
[2021-04-01] MEDS: Atorvastatin Calcium 40 MG Tablet PO (19:55)
[2021-04-01] MEDS: Mirtazapine 30 MG Tablet PO (19:56)
[2021-04-02] MEDS: Enoxaparin 40 MG/0.4 ML Syringe SC (06:15)
[2021-04-02] MEDS: Tolterodine Tartrate 2 MG CAP.SA PO (06:15)
[2021-04-02] MEDS: Menthol/Lanolin/Calamine/Znox 113 GM Tube 1 APPLIC TOPICAL ×2 (06:15→21:08)
[2021-04-02] MEDS: Polyethylene Glycol 3350 17 GM PACKET PO (06:16)
[2021-04-02] MEDS: Nystatin Powder 15gm Bottle 1 APPLIC TOPICAL ×2 (06:16→21:09)
[2021-04-02] MEDS: Senna/Docusate Sodium 1 Tablet 2 TABLET PO ×2 (06:16→17:20)
[2021-04-02] MEDS: Lisinopril 10 MG Tablet PO (06:17)
[2021-04-02] MEDS: busPIRone 5 MG Tablet PO ×2 (09:20→15:25)
[2021-04-02] MEDS: Cholecalciferol (VIT D3) 25 MCG TABLET (1,000 UNITS) 125 MCG PO (09:21)
[2021-04-02] MEDS: Aspirin E.C. 81 MG Tablet PO (09:21)
[2021-04-02 09:24] VITALS: BP 106/42; PULSE 85
[2021-04-02 10:45] VITALS: BP 103/46; PULSE 85
[2021-04-02 14:06] VITALS: BP 108/52; PULSE 89; RESP 16; TEMP 36.6; O2SAT 99
--- NOTE | 2021-04-02 16:30 | CASEMGMT ---
BIMS and PHQ9 interview completed on this date for MDS assessment. RHIANNON Arevalo
[2021-04-02 17:18] VITALS: BP 124/53
[2021-04-02] MEDS: Carvedilol 12.5 MG Tablet PO (17:20)
[2021-04-02 20:00] VITALS: PULSE 88; RESP 14; O2SAT 97
[2021-04-02] MEDS: traMADol 50 MG Tablet PO (21:07)
[2021-04-02] MEDS: Mirtazapine 30 MG Tablet PO (21:10)
[2021-04-02] MEDS: Atorvastatin Calcium 40 MG Tablet PO (21:11)
[2021-04-03] MEDS: Enoxaparin 40 MG/0.4 ML Syringe SC (05:55)
[2021-04-03] MEDS: Senna/Docusate Sodium 1 Tablet 2 TABLET PO (05:56)
[2021-04-03] MEDS: Lisinopril 10 MG Tablet PO (05:56)
[2021-04-03] MEDS: Polyethylene Glycol 3350 17 GM PACKET PO (05:56)
[2021-04-03] MEDS: Tolterodine Tartrate 2 MG CAP.SA PO (05:56)
[2021-04-03] MEDS: Nystatin Powder 15gm Bottle 1 APPLIC TOPICAL ×2 (05:56→21:57)
[2021-04-03] MEDS: Menthol/Lanolin/Calamine/Znox 113 GM Tube 1 APPLIC TOPICAL ×2 (05:57→21:56)
[2021-04-03 06:00] VITALS: BP 123/57; PULSE 71; RESP 14; O2SAT 98
[2021-04-03] MEDS: Cholecalciferol (VIT D3) 25 MCG TABLET (1,000 UNITS) 125 MCG PO (08:46)
[2021-04-03] MEDS: busPIRone 5 MG Tablet PO ×2 (08:46→16:05)
[2021-04-03] MEDS: Aspirin E.C. 81 MG Tablet PO (08:46)
[2021-04-03] MEDS: Carvedilol 12.5 MG Tablet PO ×2 (08:46→16:05)
[2021-04-03 08:49] VITALS: BP 124/50; PULSE 80
[2021-04-03 09:58] VITALS: PULSE 80; RESP 16; O2SAT 96
--- NOTE | 2021-04-03 12:39 | NURSING ---
pt c/o nightsweats & dry mouth, not last night but previous nights where she was soaked and gowns had to be changed. dr olmedo updated, new order to dc remeron and start melatonin per pt request d/t not sleeping.
[2021-04-03 16:25] VITALS: BP 105/59; PULSE 72; RESP 16; TEMP 36.7; O2SAT 94
[2021-04-03] MEDS: MELATONIN 10 MG TABLET PO (21:56)
[2021-04-03] MEDS: Atorvastatin Calcium 40 MG Tablet PO (21:57)
[2021-04-04 06:11] LABS: Absolute Lymphocyte Count 1.55 X10^3/uL (0.83-4.51); Absolute Neutrophil Count 2.7 X10^3/uL (2.0-7.7); Basophil# 0.03 X10^3/uL; Basophil% 0.6 % (0-1); Eosinophil# 0.32 X10^3/uL; Eosinophils% 6.2 % (0-5); Hematocrit 40.4 % (37-47); Hemoglobin 13.1 g/dL (12.0-15.0); Lymphocyte # 1.55 X10^3/ul (0.83-4.51); Lymphocyte % 30.2 % (19-41); Mean Corp Hgb Conc 32.4 g/dL (32-36); Mean Corpuscular Hgb 35.3 pg (27.0-32.0); Mean Corpuscular Volume 108.9 fL (81-99); Mean Platelet Vol. 10.5 fl (6.2-12.0); Monocyte# 0.54 X10^3/uL; Monocyte% 10.5 % (0-10); NRBC Flagged by Analyzer 0 % (0-5); Neutrophil # 2.67 X10^3/uL (2.7-7.7); Neutrophil % 51.9 % (47-70); Platelet Count 340 K/mm3 (150-450); RBC Distribution Width CV 13.3 % (11.6-14.6); RBC Distribution Width SD 53.1 fl (35.1-43.9); Red Blood Count 3.71 M/mm3 (4.2-5.4); White Blood Count 5.1 K/mm3 (4.4-11.0)
[2021-04-04 06:21] LABS: Anion Gap 5 (5-15); BUN 17 mg/dL (7-18); BUN/Creat Ratio 28.3 RATIO (10-20); Calcium,Total 9.2 mg/dL (8.5-10.1); Chloride 107 mmol/L (98-107); EST Glomerular Filtration Rate 102 mL/min (>60); Est Glom Filt Rate - Afr Amer 124 mL/min (>60); Estimated Creatinine Clearance 32.77 ml/min; Glucose 96 mg/dL (74-106); Potassium 4.2 mmol/L (3.5-5.1); Sodium Level 141 mmol/L (136-145)
[2021-04-04] MEDS: Menthol/Lanolin/Calamine/Znox 113 GM Tube 1 APPLIC TOPICAL ×2 (06:25→20:10)
[2021-04-04] MEDS: Nystatin Powder 15gm Bottle 1 APPLIC TOPICAL ×2 (06:26→20:10)
[2021-04-04] MEDS: Senna/Docusate Sodium 1 Tablet 2 TABLET PO (06:27)
[2021-04-04] MEDS: Enoxaparin 40 MG/0.4 ML Syringe SC (06:28)
[2021-04-04] MEDS: Lisinopril 10 MG Tablet PO (06:28)
[2021-04-04] MEDS: Polyethylene Glycol 3350 17 GM PACKET PO (06:28)
[2021-04-04] MEDS: Tolterodine Tartrate 2 MG CAP.SA PO (06:28)
[2021-04-04] MEDS: Cholecalciferol (VIT D3) 25 MCG TABLET (1,000 UNITS) 125 MCG PO (08:33)
[2021-04-04] MEDS: Aspirin E.C. 81 MG Tablet PO (08:33)
[2021-04-04] MEDS: busPIRone 5 MG Tablet PO ×2 (08:33→14:07)
[2021-04-04] MEDS: Carvedilol 12.5 MG Tablet PO ×2 (08:33→16:47)
[2021-04-04 08:38] VITALS: BP 121/51; PULSE 87
[2021-04-04] MEDS: Tuberculin,Purif.prot.deriv. 50 TU/ML Vial 0.1 ML ID (10:16)
[2021-04-04 14:05] VITALS: BP 112/54; PULSE 75; RESP 16; TEMP 36.2
[2021-04-04] MEDS: Atorvastatin Calcium 40 MG Tablet PO (20:11)
[2021-04-04] MEDS: MELATONIN 10 MG TABLET PO (20:11)
[2021-04-04 22:00] VITALS: PULSE 77; O2SAT 98
[2021-04-05] MEDS: Enoxaparin 40 MG/0.4 ML Syringe SC (05:15)
[2021-04-05] MEDS: Menthol/Lanolin/Calamine/Znox 113 GM Tube 1 APPLIC TOPICAL ×2 (05:15→22:06)
[2021-04-05] MEDS: Lisinopril 10 MG Tablet PO (05:15)
[2021-04-05] MEDS: Nystatin Powder 15gm Bottle 1 APPLIC TOPICAL ×2 (05:15→22:05)
[2021-04-05] MEDS: Tolterodine Tartrate 2 MG CAP.SA PO (05:15)
[2021-04-05] MEDS: Cholecalciferol (VIT D3) 25 MCG TABLET (1,000 UNITS) 125 MCG PO (09:17)
[2021-04-05] MEDS: Carvedilol 12.5 MG Tablet PO (09:17)
[2021-04-05] MEDS: busPIRone 5 MG Tablet PO ×2 (09:17→15:09)
[2021-04-05] MEDS: Aspirin E.C. 81 MG Tablet PO (09:17)
[2021-04-05 09:19] VITALS: BP 119/57; PULSE 98; RESP 18; O2SAT 97
--- NOTE | 2021-04-05 09:20 | NURSING ---
Pt reports feeling anxious and shaky, she says she feels off. Pt stated she has felt this way all morning but got worse during therapy, VS obtained and WNL, BS 189 and Heart rate regular. Pt denies chest pain/tightness but states she feels shaky in her back. Pt given 8am scheduled Buspar and reclined. Pt currently participating in speech therapy, charge nurse updated.
[2021-04-05 09:31] LABS: Bedside Glucose 189 mg/dL (70-110)
[2021-04-05 14:48] VITALS: BP 102/53; PULSE 80; RESP 14; TEMP 36.3; O2SAT 97
--- NOTE | 2021-04-05 16:44 | NURSING ---
Addendum entered by Ellen Ortega 04/05/21 17:53: Dr. Moon updated N.O. 0.25mg TID PRN Original Note: Pt requesting something PRN for anxiety stating the buspar is helping but sometimes she feels she needs something else to take the edge off.
--- NOTE | 2021-04-05 17:40 | PCM.PROGNOTE ---
Subjective Subjective Resident requesting something for anxiety, already on Buspar. Objective Data Objective Data Vital Signs: Vital Signs Temp Pulse Resp BP Pulse Ox 97.4 F L 80 14 102/53 L 97 04/05/21 14:48 04/05/21 14:48 04/05/21 14:48 04/05/21 14:48 04/05/21 14:48 Oxygen Flow Rate (L/min) 1 Oxygen Delivery Method Room Air Weight: 78.953 kg Body Mass Index (BMI) 35.6 Intake & Output: Intake and Output for Last 24 Hours 04/03/21 04/04/21 04/05/21 23:59 23:59 23:59 Intake Total 960 / 960 360 / 360 1020 / 1020 Balance 960 / 960 360 / 360 1020 / 1020 Lab / Micro Data Result Diagrams: 04/04/21 05:39 04/04/21 05:39 Labs: Laboratory Results - last 24 hr 04/05/21 09:12: POC Glucose 189 H Micro: Microbiology 03/27/21 16:48 Mucosa - Nose SARS-CoV-2 Antigen (Rapid) - Final Assessment & Plan Assessment/Plan (1) Anxiety: PLAN: Anxiety - Buspar 5MG twice daily, add Xanax 0.25MG TID PRN anxiety.
[2021-04-05 17:52] VITALS: BP 104/56; PULSE 76
[2021-04-05] MEDS: MELATONIN 10 MG TABLET PO (22:05)
[2021-04-05] MEDS: Atorvastatin Calcium 40 MG Tablet PO (22:05)
[2021-04-06 03:57] VITALS: BP 142/76; PULSE 82; RESP 16; O2SAT 93
[2021-04-06] MEDS: Nystatin Powder 15gm Bottle 1 APPLIC TOPICAL ×2 (03:58→21:47)
[2021-04-06] MEDS: Menthol/Lanolin/Calamine/Znox 113 GM Tube 1 APPLIC TOPICAL ×2 (03:59→21:46)
[2021-04-06] MEDS: traMADol 50 MG Tablet PO ×2 (03:59→21:46)
[2021-04-06] MEDS: Enoxaparin 40 MG/0.4 ML Syringe SC (04:00)
[2021-04-06] MEDS: Tolterodine Tartrate 2 MG CAP.SA PO (04:00)
[2021-04-06] MEDS: Senna/Docusate Sodium 1 Tablet 2 TABLET PO ×2 (04:00→17:08)
[2021-04-06] MEDS: Lisinopril 10 MG Tablet PO (04:00)
[2021-04-06] MEDS: Cholecalciferol (VIT D3) 25 MCG TABLET (1,000 UNITS) 125 MCG PO (08:20)
[2021-04-06] MEDS: Aspirin E.C. 81 MG Tablet PO (08:20)
[2021-04-06] MEDS: busPIRone 5 MG Tablet PO ×2 (08:20→15:37)
[2021-04-06] MEDS: Carvedilol 12.5 MG Tablet PO ×2 (08:22→17:08)
[2021-04-06 08:24] VITALS: BP 129/71; PULSE 86
[2021-04-06 14:23] VITALS: BP 99/53; PULSE 74; RESP 16; TEMP 36.8; O2SAT 94
[2021-04-06 17:09] VITALS: BP 123/57; PULSE 72
[2021-04-06] MEDS: Atorvastatin Calcium 40 MG Tablet PO (21:46)
[2021-04-06] MEDS: MELATONIN 10 MG TABLET PO (21:46)
[2021-04-07] MEDS: Menthol/Lanolin/Calamine/Znox 113 GM Tube 1 APPLIC TOPICAL ×2 (05:38→21:44)
[2021-04-07] MEDS: Nystatin Powder 15gm Bottle 1 APPLIC TOPICAL ×2 (05:40→21:45)
[2021-04-07] MEDS: Tolterodine Tartrate 2 MG CAP.SA PO (05:41)
[2021-04-07] MEDS: Enoxaparin 40 MG/0.4 ML Syringe SC (05:41)
[2021-04-07] MEDS: Lisinopril 10 MG Tablet PO (05:41)
[2021-04-07 05:45] VITALS: BP 112/61; PULSE 78
[2021-04-07 08:32] VITALS: BP 107/66; PULSE 83
[2021-04-07] MEDS: Cholecalciferol (VIT D3) 25 MCG TABLET (1,000 UNITS) 125 MCG PO (08:33)
[2021-04-07] MEDS: busPIRone 5 MG Tablet PO ×2 (08:33→15:46)
[2021-04-07] MEDS: Carvedilol 12.5 MG Tablet PO ×2 (08:34→17:48)
[2021-04-07] MEDS: Aspirin E.C. 81 MG Tablet PO (08:34)
[2021-04-07] MEDS: ALPRAZolam 0.25 MG Tablet PO (08:41)
--- NOTE | 2021-04-07 11:42 | CASEMGMT ---
Social Work Plan of care meeting held with pt, and pt's children Srinivas and Srini present. Pt is receiving PT/OT/ST and progressing well with therapy. Pt plans to return to her home upon discharge. Children state that they are working on ECF placement for pt and pt is agreeable it may be best to return home after her has moved to an ECF as caregiving for is greater effort than pt can provide. Team is recommending that pt be watched closely once home due to possible cognitive concerns with pt. Children are understanding. Home health PT/OT/ST are recommended and SW provided pt family with list of [facility] providers including quality and resource use date and consistent with the patients preferred geographic region, medical needs and insurance network. Family to review list and will notify SW of choice of provider. Pt will also need walker, shower chair and grab bars at home. SW updated family that SW will assist with walker and that shower chair and grab bar are not covered by insurance and should be obtained by family. Pt tearful when discussing 's need for ECF placement. SW provided emotional support. No discharge date at this time. Will continue with treatment plan on TCU. RHIANNON Arevalo
[2021-04-07 13:10] VITALS: PULSE 70; RESP 18; O2SAT 96
[2021-04-07 16:45] VITALS: BP 101/45; PULSE 75; RESP 14; TEMP 36.8; O2SAT 96
[2021-04-07 17:50] VITALS: BP 125/67; PULSE 76
[2021-04-07] MEDS: Atorvastatin Calcium 40 MG Tablet PO (21:44)
[2021-04-07] MEDS: MELATONIN 10 MG TABLET PO (21:44)
[2021-04-08 06:15] VITALS: BP 110/58; PULSE 74
[2021-04-08] MEDS: Tolterodine Tartrate 2 MG CAP.SA PO (06:17)
[2021-04-08] MEDS: Lisinopril 10 MG Tablet PO (06:17)
[2021-04-08] MEDS: Enoxaparin 40 MG/0.4 ML Syringe SC (06:17)
[2021-04-08] MEDS: Nystatin Powder 15gm Bottle 1 APPLIC TOPICAL ×2 (06:17→21:13)
[2021-04-08] MEDS: Menthol/Lanolin/Calamine/Znox 113 GM Tube 1 APPLIC TOPICAL ×2 (06:19→21:12)
[2021-04-08 10:09] VITALS: BP 101/44; PULSE 89; RESP 16; TEMP 36.7; O2SAT 95
[2021-04-08] MEDS: Cholecalciferol (VIT D3) 25 MCG TABLET (1,000 UNITS) 125 MCG PO (10:11)
[2021-04-08] MEDS: busPIRone 5 MG Tablet PO ×2 (10:11→15:20)
[2021-04-08] MEDS: Aspirin E.C. 81 MG Tablet PO (10:11)
--- NOTE | 2021-04-08 10:16 | NURSING ---
Coreg held per nursing judgement for BP 101/44. Pt is asymptomatic at this time, encouraged oral fluids at this time, reported to charge nurse.
--- NOTE | 2021-04-08 12:05 | MDS.RN ---
Information for the mds was obtained from review of the clinical record, interview of resident, staff, and direct observation of resident's care.
[2021-04-08] MEDS: ALPRAZolam 0.25 MG Tablet PO (12:30)
--- NOTE | 2021-04-08 12:37 | NURSING ---
SMOKE AND FLAME SPECIALIST came and told this nurse that pt was in her room crying. This nurse went to access patient and daughter was at bedside also crying. When asked if pt was ok she stated that her was admitted to acute side of hospital right now because he had a stroke. Pt was offered food, fluids, tissues, and 1:1 ineffective at consoling her. Pt requested Xanax at this time for her anxiety and PRN xanax given per order.
--- NOTE | 2021-04-08 16:18 | CHAPLAIN ---
Type of Pastoral Visit ___ Initial Visit _x__ Follow-up Visit ___ On-call Visit ___ General Patient Visit ___ Spiritual Assessment ___ Family Conference ___ Bereavement ___ Rapid Response ___ Code Blue ___ Other (describe below) Pastoral Care Referral From ___ Patient ___ Family ___ Nurse ___ Physician ___ Fudge Candy Maker ___ Tile Machine Operator _x__ Other (describe below) Sacrament/Intervention _x__ Active listening ___ Anointing ___ Orthodox ___ Bereavement ___ Communion ___ Lydia exploration ___ _x__ Life review _x__ Prayer ___ Reconciliation ___ Sacrament of Sick _x__ Supportive presence ___ Wedding ___ Other (describe below) Pastoral Comments spouse of patient was admitted to PCU; visited with spouse and learned of this situation of both being in hospital; upon entering TCU the Program Support Specialist recommended this visit to give calm and assurance to patient; SW was with patient at this time; gave update on spouse's condition to patient and reassurance that he was doing well and asking about her; pt is relived and grateful to hear the news; sat with pt and gave presence and prayer; pt is feeling much better now
[2021-04-08 16:42] VITALS: BP 116/44; PULSE 83
[2021-04-08] MEDS: Acetaminophen 500 MG Tablet 1000 MG PO (19:26)
[2021-04-08] MEDS: traMADol 50 MG Tablet PO (21:11)
[2021-04-08] MEDS: MELATONIN 10 MG TABLET PO (21:12)
[2021-04-08] MEDS: Atorvastatin Calcium 40 MG Tablet PO (21:12)
[2021-04-09] MEDS: Tolterodine Tartrate 2 MG CAP.SA PO (05:30)
[2021-04-09] MEDS: Lisinopril 10 MG Tablet PO (05:30)
[2021-04-09] MEDS: Menthol/Lanolin/Calamine/Znox 113 GM Tube 1 APPLIC TOPICAL ×2 (05:30→20:04)
[2021-04-09] MEDS: Enoxaparin 40 MG/0.4 ML Syringe SC (05:30)
[2021-04-09] MEDS: Nystatin Powder 15gm Bottle 1 APPLIC TOPICAL ×2 (05:31→20:06)
[2021-04-09] MEDS: Aspirin E.C. 81 MG Tablet PO (08:39)
[2021-04-09] MEDS: Cholecalciferol (VIT D3) 25 MCG TABLET (1,000 UNITS) 125 MCG PO (08:39)
[2021-04-09] MEDS: Carvedilol 12.5 MG Tablet PO ×2 (08:39→16:30)
[2021-04-09] MEDS: Acetaminophen 500 MG Tablet 1000 MG PO (08:39)
[2021-04-09] MEDS: busPIRone 5 MG Tablet PO ×2 (08:39→16:30)
[2021-04-09] MEDS: Senna/Docusate Sodium 1 Tablet 2 TABLET PO (14:29)
[2021-04-09 16:00] VITALS: BP 117/56; PULSE 79; RESP 18; TEMP 36.2; O2SAT 96
[2021-04-09] MEDS: Atorvastatin Calcium 40 MG Tablet PO (20:05)
[2021-04-09] MEDS: MELATONIN 10 MG TABLET PO (20:06)
[2021-04-10] MEDS: Senna/Docusate Sodium 1 Tablet 2 TABLET PO ×2 (05:51→17:08)
[2021-04-10] MEDS: Tolterodine Tartrate 2 MG CAP.SA PO (05:51)
[2021-04-10] MEDS: Enoxaparin 40 MG/0.4 ML Syringe SC (05:51)
[2021-04-10] MEDS: Polyethylene Glycol 3350 17 GM PACKET PO (05:52)
[2021-04-10] MEDS: Lisinopril 10 MG Tablet PO (05:52)
[2021-04-10] MEDS: Nystatin Powder 15gm Bottle 1 APPLIC TOPICAL ×2 (05:56→20:45)
[2021-04-10] MEDS: Menthol/Lanolin/Calamine/Znox 113 GM Tube 1 APPLIC TOPICAL ×2 (05:56→20:45)
[2021-04-10] MEDS: traMADol 50 MG Tablet PO ×2 (06:00→20:42)
[2021-04-10 08:24] VITALS: BP 117/63; PULSE 88; RESP 16; TEMP 37.1; O2SAT 95
[2021-04-10] MEDS: busPIRone 5 MG Tablet PO ×2 (08:26→14:13)
[2021-04-10] MEDS: Cholecalciferol (VIT D3) 25 MCG TABLET (1,000 UNITS) 125 MCG PO (08:27)
[2021-04-10] MEDS: Carvedilol 12.5 MG Tablet PO ×2 (08:27→17:12)
[2021-04-10] MEDS: Aspirin E.C. 81 MG Tablet PO (08:28)
[2021-04-10] MEDS: Acetaminophen 500 MG Tablet 1000 MG PO (10:52)
--- NOTE | 2021-04-10 11:57 | NURSING ---
Pt c/o of constipation, warm prune juice and butter was given, results were effective pt reports having moderate amount bm
[2021-04-10 17:10] VITALS: BP 105/59; PULSE 74
[2021-04-10] MEDS: MELATONIN 10 MG TABLET PO (20:42)
[2021-04-10] MEDS: ALPRAZolam 0.25 MG Tablet PO (20:42)
[2021-04-10] MEDS: Atorvastatin Calcium 40 MG Tablet PO (20:43)
[2021-04-11 05:39] LABS: Absolute Lymphocyte Count 2.05 X10^3/uL (0.83-4.51); Absolute Neutrophil Count 2.7 X10^3/uL (2.0-7.7); Basophil# 0.04 X10^3/uL; Basophil% 0.7 % (0-1); Eosinophil# 0.35 X10^3/uL; Eosinophils% 6.1 % (0-5); Hematocrit 39.1 % (37-47); Hemoglobin 12.7 g/dL (12.0-15.0); Lymphocyte # 2.05 X10^3/ul (0.83-4.51); Lymphocyte % 35.5 % (19-41); Mean Corp Hgb Conc 32.5 g/dL (32-36); Mean Corpuscular Hgb 37.4 pg (27.0-32.0); Mean Platelet Vol. 10.1 fl (6.2-12.0); Monocyte# 0.58 X10^3/uL; Monocyte% 10.1 % (0-10); NRBC Flagged by Analyzer 0 % (0-5); Neutrophil # 2.74 X10^3/uL (2.7-7.7); Neutrophil % 47.4 % (47-70); Platelet Count 300 K/mm3 (150-450); RBC Distribution Width CV 13.6 % (11.6-14.6); RBC Distribution Width SD 57.5 fl (35.1-43.9); White Blood Count 5.8 K/mm3 (4.4-11.0)
[2021-04-11 06:02] LABS: Anion Gap 5 (5-15); BUN 30 mg/dL (7-18); BUN/Creat Ratio 54.7 RATIO (10-20); Calcium,Total 8.7 mg/dL (8.5-10.1); Chloride 106 mmol/L (98-107); Creatinine, Serum 0.55 mg/dL (0.55-1.02); EST Glomerular Filtration Rate 114 mL/min (>60); Est Glom Filt Rate - Afr Amer 138 mL/min (>60); Estimated Creatinine Clearance 32.77 ml/min; Glucose 96 mg/dL (74-106); Sodium Level 138 mmol/L (136-145)
[2021-04-11] MEDS: Menthol/Lanolin/Calamine/Znox 113 GM Tube 1 APPLIC TOPICAL ×2 (06:24→21:40)
[2021-04-11] MEDS: Polyethylene Glycol 3350 17 GM PACKET PO (06:25)
[2021-04-11] MEDS: Enoxaparin 40 MG/0.4 ML Syringe SC (06:25)
[2021-04-11] MEDS: Tolterodine Tartrate 2 MG CAP.SA PO (06:25)
[2021-04-11] MEDS: Senna/Docusate Sodium 1 Tablet 2 TABLET PO (06:27)
[2021-04-11] MEDS: Lisinopril 10 MG Tablet PO (06:28)
[2021-04-11] MEDS: Nystatin Powder 15gm Bottle 1 APPLIC TOPICAL ×2 (06:29→21:40)
[2021-04-11 06:30] VITALS: BP 130/55; PULSE 75; RESP 16; TEMP 36.2; O2SAT 96
[2021-04-11] MEDS: Aspirin E.C. 81 MG Tablet PO (08:17)
[2021-04-11] MEDS: Carvedilol 12.5 MG Tablet PO ×2 (08:17→17:14)
[2021-04-11] MEDS: Cholecalciferol (VIT D3) 25 MCG TABLET (1,000 UNITS) 125 MCG PO (08:17)
[2021-04-11] MEDS: busPIRone 5 MG Tablet PO ×2 (08:17→14:31)
[2021-04-11] MEDS: traMADol 50 MG Tablet PO ×2 (14:33→21:38)
[2021-04-11 17:13] VITALS: BP 127/54; PULSE 82
[2021-04-11] MEDS: Acetaminophen 500 MG Tablet 1000 MG PO (17:18)
[2021-04-11] MEDS: ALPRAZolam 0.25 MG Tablet PO (21:38)
[2021-04-11] MEDS: MELATONIN 10 MG TABLET PO (21:38)
[2021-04-11] MEDS: Atorvastatin Calcium 40 MG Tablet PO (21:38)
[2021-04-11 21:39] VITALS: PULSE 82; RESP 16; O2SAT 96
[2021-04-12 06:52] VITALS: BP 110/58; PULSE 79
[2021-04-12] MEDS: Enoxaparin 40 MG/0.4 ML Syringe SC (06:54)
[2021-04-12] MEDS: Senna/Docusate Sodium 1 Tablet 2 TABLET PO (06:54)
[2021-04-12] MEDS: Lisinopril 10 MG Tablet PO (06:54)
[2021-04-12] MEDS: Tolterodine Tartrate 2 MG CAP.SA PO (06:54)
[2021-04-12] MEDS: Acetaminophen 500 MG Tablet 1000 MG PO (06:57)
[2021-04-12] MEDS: Menthol/Lanolin/Calamine/Znox 113 GM Tube 1 APPLIC TOPICAL ×2 (07:16→21:54)
[2021-04-12] MEDS: Nystatin Powder 15gm Bottle 1 APPLIC TOPICAL ×2 (07:17→21:52)
[2021-04-12] MEDS: Aspirin E.C. 81 MG Tablet PO (08:07)
[2021-04-12] MEDS: Cholecalciferol (VIT D3) 25 MCG TABLET (1,000 UNITS) 125 MCG PO (08:07)
[2021-04-12] MEDS: Carvedilol 12.5 MG Tablet PO ×2 (08:08→17:14)
[2021-04-12] MEDS: busPIRone 5 MG Tablet PO ×2 (08:08→14:44)
[2021-04-12 08:09] VITALS: BP 122/61; PULSE 75
[2021-04-12 10:45] VITALS: PULSE 71; RESP 18; O2SAT 96
--- NOTE | 2021-04-12 11:51 | CASEMGMT ---
Social Work RENETTA spoke with pt dgt Srinivas to discuss discharge plans. Srinivas states family has ongoing concerns about pt memory and do not feel pt is safe at home. Pt has informed family that her goal is to be with her , where ever that may be. Pt is no longer able to care for her spouse at home. Srinivas states current plan is for pt and to go to [facility] together. Srinivas is working on gathering information to submit Medicaid application. RENETTA will follow up with [facility] to facilitate pt discharge to [facility] at the appropriate time. Srinivas to notify SW when she has submitted Medicaid application. RHIANNON Arevalo
[2021-04-12 16:07] VITALS: BP 100/61; PULSE 77; RESP 17; TEMP 36.8; O2SAT 96
[2021-04-12] MEDS: Atorvastatin Calcium 40 MG Tablet PO (21:48)
[2021-04-12] MEDS: MELATONIN 10 MG TABLET PO (21:48)
[2021-04-12] MEDS: ALPRAZolam 0.25 MG Tablet PO (21:50)
[2021-04-12] MEDS: traMADol 50 MG Tablet PO (21:50)
[2021-04-13] MEDS: Enoxaparin 40 MG/0.4 ML Syringe SC (06:29)
[2021-04-13] MEDS: Senna/Docusate Sodium 1 Tablet 2 TABLET PO ×2 (06:30→17:10)
[2021-04-13] MEDS: Lisinopril 10 MG Tablet PO (06:30)
[2021-04-13] MEDS: Tolterodine Tartrate 2 MG CAP.SA PO (06:30)
[2021-04-13] MEDS: Nystatin Powder 15gm Bottle 1 APPLIC TOPICAL ×2 (06:31→22:08)
[2021-04-13] MEDS: Menthol/Lanolin/Calamine/Znox 113 GM Tube 1 APPLIC TOPICAL ×2 (06:32→22:07)
[2021-04-13 06:33] VITALS: BP 120/61; PULSE 81
[2021-04-13 08:35] VITALS: BP 138/99; PULSE 85
[2021-04-13] MEDS: busPIRone 5 MG Tablet PO ×2 (08:36→15:58)
[2021-04-13] MEDS: Cholecalciferol (VIT D3) 25 MCG TABLET (1,000 UNITS) 125 MCG PO (08:36)
[2021-04-13] MEDS: Aspirin E.C. 81 MG Tablet PO (08:36)
[2021-04-13] MEDS: Carvedilol 12.5 MG Tablet PO ×2 (08:36→17:10)
[2021-04-13] MEDS: Acetaminophen 500 MG Tablet 1000 MG PO (08:39)
--- NOTE | 2021-04-13 14:30 | NURSING ---
Resident and son, Srini, notified of COVID status on the unit.
--- NOTE | 2021-04-13 15:03 | NURSING ---
PT HAD SMALL AMOUNT OF BLOOD IN TOILET WITH BM. ASKED PT IF SHE HAD HEMORRHOIDS PT STATED SHE DIDNT KNOW. REPORTED TO RN. WILL CONTINUE TO MONITOR.
[2021-04-13 16:27] VITALS: BP 119/76; PULSE 90; RESP 16; TEMP 37; O2SAT 96
[2021-04-13] MEDS: Atorvastatin Calcium 40 MG Tablet PO (22:07)
[2021-04-13] MEDS: MELATONIN 10 MG TABLET PO (22:07)
[2021-04-13] MEDS: ALPRAZolam 0.25 MG Tablet PO (22:07)
[2021-04-13] MEDS: traMADol 50 MG Tablet PO (22:08)
[2021-04-14 06:28] VITALS: BP 126/57; PULSE 76; RESP 16; TEMP 36; O2SAT 98
[2021-04-14] MEDS: Enoxaparin 40 MG/0.4 ML Syringe SC (06:29)
[2021-04-14] MEDS: Senna/Docusate Sodium 1 Tablet 2 TABLET PO ×2 (06:29→18:25)
[2021-04-14] MEDS: Tolterodine Tartrate 2 MG CAP.SA PO (06:29)
[2021-04-14] MEDS: Lisinopril 10 MG Tablet PO (06:29)
[2021-04-14] MEDS: Acetaminophen 500 MG Tablet 1000 MG PO (06:34)
[2021-04-14] MEDS: Nystatin Powder 15gm Bottle 1 APPLIC TOPICAL ×2 (06:37→20:00)
[2021-04-14] MEDS: Carvedilol 12.5 MG Tablet PO ×2 (08:32→18:25)
[2021-04-14] MEDS: Cholecalciferol (VIT D3) 25 MCG TABLET (1,000 UNITS) 125 MCG PO (08:32)
[2021-04-14] MEDS: Aspirin E.C. 81 MG Tablet PO (08:32)
[2021-04-14] MEDS: busPIRone 5 MG Tablet PO ×2 (08:32→14:59)
[2021-04-14 08:35] VITALS: BP 116/54; PULSE 81
--- NOTE | 2021-04-14 14:12 | CASEMGMT ---
Social Work SW spoke with pt dyllan Espino and she is uncertain if pt can go to [facility] but she has talked to them. RENETTA sent a referral to [facility] and spoke with Aimee requesting a return call if they can accept pt. RHIANNON Arevalo
[2021-04-14 16:00] VITALS: BP 132/44; BP 132/66; PULSE 77; RESP 17; TEMP 35.7; O2SAT 97
[2021-04-14] MEDS: Atorvastatin Calcium 40 MG Tablet PO (20:00)
[2021-04-14] MEDS: MELATONIN 10 MG TABLET PO (20:00)
[2021-04-15] MEDS: Polyethylene Glycol 3350 17 GM PACKET PO (05:09)
[2021-04-15] MEDS: Lisinopril 10 MG Tablet PO (05:10)
[2021-04-15] MEDS: Enoxaparin 40 MG/0.4 ML Syringe SC (05:10)
[2021-04-15] MEDS: Senna/Docusate Sodium 1 Tablet 2 TABLET PO ×2 (05:10→18:09)
[2021-04-15] MEDS: Tolterodine Tartrate 2 MG CAP.SA PO (05:10)
[2021-04-15] MEDS: Acetaminophen 500 MG Tablet 1000 MG PO (05:13)
[2021-04-15 05:18] VITALS: BP 115/56; PULSE 83
[2021-04-15 08:28] VITALS: BP 121/58; PULSE 81; RESP 18; TEMP 36.1; O2SAT 95
[2021-04-15] MEDS: Aspirin E.C. 81 MG Tablet PO (08:30)
[2021-04-15] MEDS: busPIRone 5 MG Tablet PO ×2 (08:30→15:59)
[2021-04-15] MEDS: Cholecalciferol (VIT D3) 25 MCG TABLET (1,000 UNITS) 125 MCG PO (08:30)
[2021-04-15] MEDS: Carvedilol 12.5 MG Tablet PO ×2 (08:30→18:10)
[2021-04-15] MEDS: Nystatin Powder 15gm Bottle 1 APPLIC TOPICAL ×2 (08:32→21:21)
--- NOTE | 2021-04-15 14:14 | CASEMGMT ---
Social Work SW spoke with [facility] and with pt dgt Srinivas. [facility] not have a bed available for pt but is looking into room changes to see if they can accommodate. Srinivas states she is uncertain about discharge plan at this time. Srinivas is aware that pt d/c date has been set for 04/20 as pt is progressing well with therapy and is ready for d/c. SW too continue to follow. RHIANNON Arevalo
[2021-04-15 18:08] VITALS: BP 129/60; PULSE 81
[2021-04-15] MEDS: traMADol 50 MG Tablet PO (21:20)
[2021-04-15] MEDS: MELATONIN 10 MG TABLET PO (21:21)
[2021-04-15] MEDS: Atorvastatin Calcium 40 MG Tablet PO (21:21)
[2021-04-16] MEDS: Polyethylene Glycol 3350 17 GM PACKET PO (05:01)
[2021-04-16] MEDS: Enoxaparin 40 MG/0.4 ML Syringe SC (05:03)
[2021-04-16] MEDS: Senna/Docusate Sodium 1 Tablet 2 TABLET PO ×2 (05:03→16:28)
[2021-04-16] MEDS: Tolterodine Tartrate 2 MG CAP.SA PO (05:03)
[2021-04-16] MEDS: Lisinopril 10 MG Tablet PO (05:03)
[2021-04-16] MEDS: Nystatin Powder 15gm Bottle 1 APPLIC TOPICAL ×2 (05:06→22:41)
[2021-04-16 05:08] VITALS: BP 115/63; PULSE 76
[2021-04-16 08:23] VITALS: BP 121/55; PULSE 94; RESP 18; TEMP 36.4; O2SAT 97
[2021-04-16] MEDS: Cholecalciferol (VIT D3) 25 MCG TABLET (1,000 UNITS) 125 MCG PO (08:24)
[2021-04-16] MEDS: Aspirin E.C. 81 MG Tablet PO (08:25)
[2021-04-16] MEDS: Carvedilol 12.5 MG Tablet PO ×2 (08:25→16:28)
[2021-04-16] MEDS: busPIRone 5 MG Tablet PO ×2 (10:29→16:28)
--- NOTE | 2021-04-16 10:30 | CASEMGMT ---
Addendum entered by Matilda Medina 04/16/21 14:17: Social Work No return call from Srinivas. SW placed call to [facility] who states they have talked to Srinivas who states medicaid application has not been submitted to [facility] and pt cannot afford to pay privatly for halfway. Therefore pt cannot be admitted to [facility] or any nursing facility. SW met with Pt and explained d/c is 04/20 and pt states she feels she is able to return home at this time. Pt will need a wheeled walker and home health PT/OT/SW. Pt is agreeable and would like to use [facility]. Pt states she will talk to Srinivas and inform of d/c plan. Home health PT/OT/SW referral to [facility] and they are able to accept. Handoff to [facility] RENETTA. Walker ordered from [facility] and requested it be delivered to pt room prior to discharge. Dischage Date: 04/20/21 Discharge Disposition: Home with spouse and son. [facility] PT/OT/SW. RHIANNON Rhodes Original Note: Social Workj Phone call to pt dgt Srinivas informing that d/c is Monday and a discharge plan needs set. Leticiakelseyamador states she will call [facility] in a few minutes and let SW know outcome. RHIANNON Arevalo
--- NOTE | 2021-04-16 14:20 | DS.PCM_ITS ---
Providers Date of Admission: 03/27/21 Primary Care Physician: Dr. Juan J Hi MD Reason For Visit: NSTEMI Diagnosis Discharge Diagnosis (1) Anxiety: Status: Acute Code(s): F41.9 - Anxiety disorder, unspecified Medications at Discharge Home Medications aspirin 81 mg tablet,delayed release 81 mg PO DAILY 04/25/18 cholecalciferol (vitamin D3) 125 mcg PO DAILY 03/25/21 lisinopril 10 mg PO DAILY 03/25/21 oxybutynin chloride 10 mg PO DAILY 03/25/21 tramadol 50 mg PO Q4H PRN 03/25/21 atorvastatin 40 mg PO QHS 03/27/21 nitroglycerin 0.4 mg SUBLINGUAL Q5-15M 03/27/21 acetaminophen 1,000 mg PO Q6H PRN PRN #0 tab 04/16/21 buspirone 5 mg PO 0800,1500 30 Days #60 tab 04/16/21 carvedilol 12.5 mg PO BID 30 Days #60 tab 04/16/21 Hospital Course Operations None Procedures Cardiac catheterization Summary of Care Provided Minutes Spent on Discharge: 35 Hospital Course: 80 year old female with below past medical history hospitalized for NSTEMI, Takotsubo cardiomyopathy, admitted to TCU with debility, here for rehabilitation, strengthening, prior to discharge home with . Discharge home with , son 04/20/2021, Home Health Services PT/OT/SW, Front wheeled walker. Physical Exam Const alert and oriented x3 General Appearance: cooperative HEENT normocephalic Eyes PERRL and EOMs intact bilaterally Neck supple, no JVD and no carotid bruits Resp normal respiratory effort, normal air movement and clear to auscultation bilaterally Cardio regular rate and regular rhythm GI normal to inspection, nondistended, normoactive bowel sounds, non-tender and non-distended Extremity normal capillary refill General Extremity: Negative for edema Skin no rashes or lesions noted General Skin Exam: no breakdown Psych affect normal Appearance: appropriate Weight / BMI Weight Weight: 79 kg Body Mass Index (BMI) 35.6 ABG / Lab / Microbiology Data Result Diagrams: 04/11/21 05:14 04/11/21 05:14 Microbiology: Microbiology 03/27/21 16:48 Mucosa - Nose SARS-CoV-2 Antigen (Rapid) - Final D/C Instructions Discharge Diet: No restrictions Discharge Activity: Return to Normal Activity and May Shower Weight Bearing Status: Weight bearing as tolerated Call your doctor if you observe: Fever of 101 or Higher, Inability to urinate, Inability to have a bowel movement, Shortness of breath, Dizziness, Fainting spells, Swelling in the ankles, Chest pain, Increased palpitations (irregular heartbeat) and Uncontrolled pain Additional Instructions: Discharge home with , son 04/20/2021, Home Health Services PT/OT/SW, Front wheeled walker. Please Follow Up With: Regina Rock PA When: As scheduled. Meaningful Use Info Meaningful Use Diagnoses (Choose all that apply): None applicable Discharge Plan Admission Admit Date/Time: 03/27/21 16:37 Primary Reason for Your Visit: Debility. Attending Provider: Jayleen Vidales Primary Care Provider: Juan J Hi Instructions Patient Instructions: ED Chest Pain, Noncardiac Additional Instructions / Restrictions: [facility] Health PT/OT/SW Discharge Orders/Prescriptions Prescriptions: New buspirone 5 mg Tablet 5 mg PO 0800,1500 30 Days Qty: 60 RF: 0 acetaminophen 500 mg Tablet 1,000 mg PO Q6H PRN PRN (Reason: Pain Score 1-10) Qty: 0 RF: 0 Continued tramadol 50 mg Tablet 50 mg PO Q4H PRN (Reason: Pain) RF: 0 oxybutynin chloride 10 mg tablet extended release 24hr 10 mg PO DAILY RF: 0 lisinopril 10 mg tablet 10 mg PO DAILY RF: 0 cholecalciferol (vitamin D3) 125 mcg (5,000 unit) Capsule 125 mcg PO DAILY RF: 0 atorvastatin 40 mg tablet 40 mg PO QHS RF: 0 nitroglycerin 0.4 mg tablet, sublingual 0.4 mg SUBLINGUAL Q5-15M RF: 0 carvedilol 12.5 mg tablet 12.5 mg PO BID 30 Days Qty: 60 RF: 0 aspirin [Adult Low Dose Aspirin] 81 mg tablet,delayed release (DR/EC) 81 mg PO DAILY RF: 0 Discontinued mirtazapine [Remeron] 30 mg tablet 30 mg PO QHS RF: 0 Referrals / Follow Up: Juan J Hi MD [Primary Care Provider] - Disposition Disposition (needs filled in before D/C Order can be placed): Home Health Service
--- NOTE | 2021-04-16 14:30 | CASEMGMT ---
BIMS and PHQ9 interview completed on this date for MDS assessment. RHIANNON Arevalo
[2021-04-16] MEDS: traMADol 50 MG Tablet PO ×2 (16:37→22:40)
[2021-04-16] MEDS: MELATONIN 10 MG TABLET PO (22:26)
[2021-04-16] MEDS: Atorvastatin Calcium 40 MG Tablet PO (22:26)
[2021-04-17] MEDS: Polyethylene Glycol 3350 17 GM PACKET PO (05:40)
[2021-04-17] MEDS: Senna/Docusate Sodium 1 Tablet 2 TABLET PO ×2 (05:41→15:59)
[2021-04-17] MEDS: Tolterodine Tartrate 2 MG CAP.SA PO (05:41)
[2021-04-17] MEDS: Enoxaparin 40 MG/0.4 ML Syringe SC (05:41)
[2021-04-17] MEDS: Lisinopril 10 MG Tablet PO (05:41)
[2021-04-17] MEDS: Nystatin Powder 15gm Bottle 1 APPLIC TOPICAL ×2 (05:44→21:25)
[2021-04-17 05:47] VITALS: BP 121/74; PULSE 75
[2021-04-17] MEDS: Aspirin E.C. 81 MG Tablet PO (08:03)
[2021-04-17] MEDS: Carvedilol 12.5 MG Tablet PO ×2 (08:03→15:59)
[2021-04-17] MEDS: Cholecalciferol (VIT D3) 25 MCG TABLET (1,000 UNITS) 125 MCG PO (08:03)
[2021-04-17] MEDS: busPIRone 5 MG Tablet PO ×2 (08:03→15:59)
[2021-04-17 17:03] VITALS: BP 119/70; PULSE 79; RESP 16; TEMP 36.3; O2SAT 96
[2021-04-17] MEDS: traMADol 50 MG Tablet PO (21:24)
[2021-04-17] MEDS: MELATONIN 10 MG TABLET PO (21:25)
[2021-04-17] MEDS: Atorvastatin Calcium 40 MG Tablet PO (21:26)
[2021-04-17 23:00] VITALS: PULSE 83; RESP 16
[2021-04-18] MEDS: Polyethylene Glycol 3350 17 GM PACKET PO (05:51)
[2021-04-18] MEDS: Enoxaparin 40 MG/0.4 ML Syringe SC (05:51)
[2021-04-18] MEDS: Tolterodine Tartrate 2 MG CAP.SA PO (05:52)
[2021-04-18] MEDS: Nystatin Powder 15gm Bottle 1 APPLIC TOPICAL ×2 (05:52→22:16)
[2021-04-18] MEDS: Lisinopril 10 MG Tablet PO (05:52)
[2021-04-18] MEDS: Senna/Docusate Sodium 1 Tablet 2 TABLET PO (05:52)
[2021-04-18 08:39] LABS: Absolute Lymphocyte Count 2.58 X10^3/uL (0.83-4.51); Absolute Neutrophil Count 2.9 X10^3/uL (2.0-7.7); Basophil# 0.04 X10^3/uL; Basophil% 0.6 % (0-1); Eosinophil# 0.54 X10^3/uL; Eosinophils% 8.3 % (0-5); Hematocrit 39.5 % (37-47); Hemoglobin 13.3 g/dL (12.0-15.0); Lymphocyte # 2.58 X10^3/ul (0.83-4.51); Lymphocyte % 39.9 % (19-41); Mean Corp Hgb Conc 33.7 g/dL (32-36); Mean Corpuscular Hgb 36.3 pg (27.0-32.0); Mean Corpuscular Volume 107.9 fL (81-99); Mean Platelet Vol. 10.9 fl (6.2-12.0); Monocyte# 0.43 X10^3/uL; Monocyte% 6.6 % (0-10); NRBC Flagged by Analyzer 0 % (0-5); Neutrophil # 2.86 X10^3/uL (2.7-7.7); Neutrophil % 44.3 % (47-70); Platelet Count 303 K/mm3 (150-450); RBC Distribution Width CV 13.6 % (11.6-14.6); RBC Distribution Width SD 54.2 fl (35.1-43.9); Red Blood Count 3.66 M/mm3 (4.2-5.4); White Blood Count 6.5 K/mm3 (4.4-11.0)
[2021-04-18] MEDS: Cholecalciferol (VIT D3) 25 MCG TABLET (1,000 UNITS) 125 MCG PO (08:48)
[2021-04-18] MEDS: Aspirin E.C. 81 MG Tablet PO (08:49)
[2021-04-18] MEDS: busPIRone 5 MG Tablet PO ×2 (08:49→15:56)
[2021-04-18] MEDS: Carvedilol 12.5 MG Tablet PO ×2 (08:49→15:57)
[2021-04-18 08:52] LABS: Anion Gap 6 (5-15); BUN 27 mg/dL (7-18); BUN/Creat Ratio 48.3 RATIO (10-20); Calcium,Total 9.5 mg/dL (8.5-10.1); Chloride 105 mmol/L (98-107); Creatinine, Serum 0.56 mg/dL (0.55-1.02); EST Glomerular Filtration Rate 111 mL/min (>60); Est Glom Filt Rate - Afr Amer 135 mL/min (>60); Estimated Creatinine Clearance 32.77 ml/min; Glucose 110 mg/dL (74-106); Sodium Level 136 mmol/L (136-145)
[2021-04-18] MEDS: Acetaminophen 500 MG Tablet 1000 MG PO (09:00)
[2021-04-18 14:49] VITALS: BP 141/71; PULSE 80; RESP 16; TEMP 36.2; O2SAT 99
[2021-04-18] MEDS: Atorvastatin Calcium 40 MG Tablet PO (22:15)
[2021-04-18] MEDS: MELATONIN 10 MG TABLET PO (22:16)
[2021-04-18] MEDS: ALPRAZolam 0.25 MG Tablet PO (22:26)
[2021-04-18] MEDS: traMADol 50 MG Tablet PO (22:26)
[2021-04-19 05:35] VITALS: BP 118/61; PULSE 81
[2021-04-19] MEDS: Tolterodine Tartrate 2 MG CAP.SA PO (05:36)
[2021-04-19] MEDS: Lisinopril 10 MG Tablet PO (05:36)
[2021-04-19] MEDS: Enoxaparin 40 MG/0.4 ML Syringe SC (05:36)
[2021-04-19] MEDS: Senna/Docusate Sodium 1 Tablet 2 TABLET PO ×2 (05:36→17:15)
[2021-04-19] MEDS: Polyethylene Glycol 3350 17 GM PACKET PO (05:36)
[2021-04-19] MEDS: Nystatin Powder 15gm Bottle 1 APPLIC TOPICAL ×2 (05:40→20:45)
[2021-04-19] MEDS: Acetaminophen 500 MG Tablet 1000 MG PO (05:42)
[2021-04-19 07:47] VITALS: BP 117/58; PULSE 82
[2021-04-19] MEDS: busPIRone 5 MG Tablet PO ×2 (07:48→14:50)
[2021-04-19] MEDS: Aspirin E.C. 81 MG Tablet PO (07:48)
[2021-04-19] MEDS: Carvedilol 12.5 MG Tablet PO ×2 (07:48→17:16)
[2021-04-19] MEDS: Cholecalciferol (VIT D3) 25 MCG TABLET (1,000 UNITS) 125 MCG PO (07:49)
[2021-04-19 13:49] VITALS: BP 107/63; PULSE 86; RESP 16; TEMP 36.1; O2SAT 98
[2021-04-19] MEDS: Atorvastatin Calcium 40 MG Tablet PO (20:45)
[2021-04-19] MEDS: MELATONIN 10 MG TABLET PO (20:45)
[2021-04-19] MEDS: traMADol 50 MG Tablet PO (20:49)
[2021-04-20 05:13] VITALS: BP 130/75; PULSE 79
[2021-04-20] MEDS: Senna/Docusate Sodium 1 Tablet 2 TABLET PO (05:14)
[2021-04-20] MEDS: Lisinopril 10 MG Tablet PO (05:15)
[2021-04-20] MEDS: Tolterodine Tartrate 2 MG CAP.SA PO (05:15)
[2021-04-20] MEDS: Polyethylene Glycol 3350 17 GM PACKET PO (05:16)
[2021-04-20] MEDS: Enoxaparin 40 MG/0.4 ML Syringe SC (05:20)
[2021-04-20] MEDS: Cholecalciferol (VIT D3) 25 MCG TABLET (1,000 UNITS) 125 MCG PO (08:38)
[2021-04-20] MEDS: Aspirin E.C. 81 MG Tablet PO (08:38)
[2021-04-20] MEDS: Carvedilol 12.5 MG Tablet PO (08:38)
[2021-04-20] MEDS: busPIRone 5 MG Tablet PO (08:39)
[2021-04-20] MEDS: Nystatin Powder 15gm Bottle 1 APPLIC TOPICAL (08:40)
--- NOTE | 2021-04-20 09:49 | CASEMGMT ---
Social Work Telephone call from Ellen green. Walker has not been delivered for patient. Patient is planning to leave around 10am this morning. Telephone call to [email or web address], message left inquiring about walker delivery status. Per prior notes, walker was ordered. Will continue to follow. Fransisca LACY, DEN
--- NOTE | 2021-04-20 10:01 | CASEMGMT ---
Social Work Per Francisco Javier, waiting for roll off driver to come in. Parking Meter Attendant to be in at 10:30 and then walker will be delivered. Met with patient in room. This social service coordinator updated patient on status of walker. Patient voiced understanding and plans to wait for walker to be delivered. Patient notified family/transportation of this information. This social service coordinator updated nursing, Jayleen on above. Will continue to follow as needed. Fransisca LACY, DAVIDS
== END 2021-04-20 11:44 | disposition home health service (06) | DRG 281 ==
PROVIDERS: Admitting Provider Internal Medicine; PCP Internal Medicine; Referring Provider Internal Medicine; Visit Provider Internal Medicine
DX: I21.4 Non-ST elevation (NSTEMI) myocardial infarction (principal); I51.81 Takotsubo syndrome; I10 Essential (primary) hypertension; I25.2 Old myocardial infarction; Z23 Encounter for immunization; E78.5 Hyperlipidemia, unspecified; F41.8 Other specified anxiety disorders; I25.10 Atherosclerotic heart disease of native coronary artery without angina pectoris; Z95.5 Presence of coronary angioplasty implant and graft; E66.9 Obesity, unspecified; Z79.899 Other long term (current) drug therapy; Z79.82 Long term (current) use of aspirin; Z68.35 Body mass index [BMI] 35.0-35.9, adult
CPT/HCPCS: 36415; 80048; 82962; 85025; 87426; 87635; 90732; 92507; 92523; 97110; 97116; 97162; 97166; 97530; 97535; 97802; G0009; U0005; A4216; U0003

== ENCOUNTER → 2021-08-02 13:36 | Outpatient (CLI) | payer MEDICARE, OTHER, SELFPAY ==
--- NOTE | 2021-08-02 13:38 | ECHOD_ITS ---
Reason For Study: CAD/ASHD Procedure This was a 2D Doppler, Color Flow transthoracic echocardiogram. The study was technically difficult. Due to back pain. Exam performed in department. Left Ventricle Normal LV size. Mild concentric left ventricular hypertrophy. Left ventricular systolic function is normal. The estimated ejection fraction is 60 %. No regional wall motion abnormalities noted. Right Ventricle Normal RV size. Normal systolic function. Atria Normal left atrium. Normal right atrium. Mitral Valve There is moderate mitral annular calcification. Tricuspid Valve Normal tricuspid valve. Aortic Valve Normal aortic valve. Trisinus/trileaflet aortic valve. Pulmonic Valve Normal pulmonic valve. Great Vessels Normal aortic root. The pulmonary artery is normal size. Normal inferior vena cava. Pericardium/Pleural No pericardial effusion. MMode/2D Measurements & Calculations LVIDd: 4.1 cm IVSd: 1.2 cm Ao root diam: 3.2 cm LVIDs: 2.7 cm LVPWd: 1.2 cm RVDd: 3.8 cm FS: 33.9 % LAV(MOD-bp): 51.1 ml LA A4 area: 14.8 cm2 LA dimension(2D): 4.2 cm LAV(MOD-bp) Indexed: 29.5 ml/m2 LAV(MOD-sp2): 47.0 ml LAV(MOD-sp4): 41.3 ml RA A4 area: 12.2 cm2 Time Measurements MV dec time: 0.16 sec Doppler Measurements & Calculations MV E max hector: 72.5 cm/sec Lat Peak E' Hector: 3.5 cm/sec Med Peak E' Hector: 5.4 cm/sec MV A max hector: 121.6 cm/sec E/E' lat: 20.4 E/E' med: 13.4 MV E/A: 0.60 Ao V2 max: 154.2 cm/sec PA V2 max: 93.1 cm/sec TR max hector: 260.8 cm/sec Ao max P.5 mmHg TR max P.2 mmHg ECHO/Echo Complete Interpretation Summary Normal LV size. Mild concentric left ventricular hypertrophy. Left ventricular systolic function is normal. The estimated ejection fraction is 60 %. There is moderate mitral annular calcification. Compared to previous study, the left ventricular systolic function has improved .. Ordering Physician: Regina Rock Referring Physician: Juan J Hi Performed By: Saida Oreilly, AUDREY, RVT
== END ==
PROVIDERS: PCP Internal Medicine; Referring Provider Physician Assistant Medical; Visit Provider Physician Assistant Medical
DX: I25.10 Atherosclerotic heart disease of native coronary artery without angina pectoris (principal); I51.81 Takotsubo syndrome; I25.2 Old myocardial infarction; Z95.5 Presence of coronary angioplasty implant and graft
CPT/HCPCS: 93306

== ENCOUNTER → 2022-02-24 | Outpatient (CLI) | payer MEDICARE, OTHER, SELFPAY ==
--- NOTE | 2022-02-24 14:52 | ECHOD_ITS ---
Reason For Study: MURMUR Procedure This was a 2D Doppler, Color Flow transthoracic echocardiogram. Exam performed in department. Left Ventricle Normal LV size. Moderate concentric left ventricular hypertrophy. Sigmoid septum. Left ventricular systolic function is normal. The estimated ejection fraction is 65 %. Stage 1 diastolic dysfunction. No regional wall motion abnormalities noted. Right Ventricle Normal RV size. Normal systolic function. Atria Normal left atrium. Normal right atrium. Mitral Valve There is mild mitral annular calcification. Mild (1+) mitral valve insufficiency. Tricuspid Valve Normal tricuspid valve. Mild tricuspid valve insufficiency. Pulmonary artery systolic pressure is 30 mmHg. Aortic Valve Trisinus/trileaflet aortic valve. Mild focal aortic valve calcification. Pulmonic Valve Normal pulmonic valve. Great Vessels Calcified aortic root. The pulmonary artery is normal size. Normal inferior vena cava. Pericardium/Pleural No pericardial effusion. MMode/2D Measurements & Calculations LVIDd: 3.5 cm IVSd: 1.4 cm Ao root diam: 3.2 cm LVIDs: 2.1 cm LVPWd: 1.5 cm FS: 40.9 % LAV(MOD-bp): 42.7 ml LVAd ap4: 23.2 cm2 SV(MOD-sp4): 39.1 ml LAV(MOD-bp) Indexed: 25.5 ml/m2 LVLd ap4: 7.1 cm LAV(MOD-sp2): 57.0 ml EDV(MOD-sp4): 65.6 ml LAV(MOD-sp4): 17.4 ml EDV(sp4-el): 64.8 ml LVAs ap4: 12.7 cm2 LVLs ap4: 5.7 cm ESV(MOD-sp4): 26.5 ml ESV(sp4-el): 24.0 ml EF(MOD-sp4): 59.6 % EF(sp4-el): 63.0 % SV(sp4-el): 40.8 ml LA A4 area: 7.8 cm2 LA dimension(2D): 3.7 cm RA A4 area: 5.2 cm2 Doppler Measurements & Calculations MV E max yefri: 53.6 cm/sec Ao V2 max: 117.5 cm/sec PA V2 max: 87.2 cm/sec MV A max yefri: 111.7 cm/sec Ao max P.5 mmHg PA V2 mean: 64.8 cm/sec MV E/A: 0.48 Ao V2 mean: 87.1 cm/sec Ao mean P.4 mmHg Ao V2 VTI: 28.1 cm TR max yefri: 254.3 cm/sec TR max P.9 mmHg ECHO/Echo Complete Interpretation Summary Normal LV size. Moderate concentric left ventricular hypertrophy. Left ventricular systolic function is normal. The estimated ejection fraction is 65 %. Stage 1 diastolic dysfunction. Pulmonary artery systolic pressure is 30 mmHg. Ordering Physician: Regina Rock Referring Physician: Regina Rock Performed By: Yessica Graves RCS
== END | disposition home or self-care (01) ==
PROVIDERS: PCP Internal Medicine; Referring Provider Physician Assistant Medical; Visit Provider Physician Assistant Medical
DX: R01.1 Cardiac murmur, unspecified (principal); I51.81 Takotsubo syndrome; I51.7 Cardiomegaly
CPT/HCPCS: 93306

== ENCOUNTER → 2022-09-19 | Outpatient (CLI) | payer MEDICARE, OTHER, SELFPAY ==
--- NOTE | 2022-10-11 15:22 | SP.MBSS_ITS ---
Modified Barium Swallow - Patient Information Study Date: 10/11/22 Study Time: 13:00 Direct Billable Minutes: 112 Total Minutes procedure & reportin Diagnosis: Dysphagia, unspecified (R13.10) Referring Physician: Juan J Hi Reason for Referral: Objectively assess swallow function, assess risk for aspiration, and determine recommendations for least restrictive diet textures and compensatory strategies to improve safety of swallow. 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 Patient reports trouble swallowing saliva and sometimes difficulty swallowing food and drink. Patient unable to provide [employer] with details regarding what foods/drinks give her difficulty or the nature of the difficulty; however, she told [employer] following the study that at times foods feel stuck in her throat. Patient lives with her and son. Son unable to provide further details other than he observes patient to have a lot of coughing at home. She has been experiencing swallowing difficulty, as well as decreased speech volume. She sees, neurologist, Dr. Schulte, in [place], [place] and has been taking Carbidopa-Levodopa since last year - son states patient has no official neurological diagnosis at this time due to patient's inability to participate in necessary testing. Current Diet Ordered: Easy to chew textures / Thin liquids Dentition: Natural Teeth, Missing Teeth Respiratory Status: Oxygenating on Room Air - Penetration-Aspiration Scale Penetration-Aspiration Scale: OBJECTIVE ASSESSMENT OF SWALLOW FUNCTION (QUANTITATIVE ? PER TRIAL): PENETRATION / ASPIRATION SCALE (CLEMENS): 1 = does not enter airway 2 = enters airway/above vocal folds/ejected 3 = enters airway/above vocal folds/not ejected 4 = enters airway/contacts vocal folds/ejected 5 = enters airway/contacts vocal folds/not ejected 6 = enters airway/below vocal folds/ejected 7 = enters airway/below vocal folds/not ejected despite effort 8 = enters airway/below vocal folds/no effort VIDEOFLOROSCOPIC SCALE SCORE (CLEMENS): Grade I = aspiration of material that has penetrated into the laryngeal vestibule, intact cough reflex Grade II = aspiration < 10 % of the bolus, intact cough reflex Grade III = aspiration of < 10 % of the bolus, reduced cough reflex or aspiration of > 10 % of the bolus, intact cough reflex Grade IV = aspiration of > 10 % of the bolus, reduced cough reflex - Penetration-Aspiration Scale Score Thin Liquid via teaspoon Result: 1= does not enter airway Thin Liquid via teaspoon Trial 2 Result: 1= does not enter airway Thin Liquid via small single sip from cup Result: 2= enter airway/above vocal folds/ejected Thin Liquid via sequential sips from cup Result: 1= does not enter airway [place] Thick Liquid via small single sip from cup Result: 1= does not enter airway Pudding via teaspoon with esophageal screen Result: 1= does not enter airway Thin Liquid via sequential sips from straw with esophageal screen Result: 1= does not enter airway 1/4 Cookie Result: 1= does not enter airway - Oral Phase Labial Seal: No Labial Escape Tongue Control During Bolus Hold: Posterior escape of less than half of bolus Bolus Preparation/Mastication: Slow prolonged chewing/mashing with complete recollection Bolus Transport/Lingual Motion: Delayed initiation of tongue motion Oral Residue: Majority of bolus remaining - piecemeal deglutition of pudding and cookie - Pharyngeal Phase Initiation of Pharyngeal Swallow: Bolus head at posterior laryngeal surgace of epiglottis Laryngeal Elevation: Comp. Superior move thyroid cart w/comp. apprx arytenoid cart-epig pet Anterior Hyoid Excursion: Partial anterior movement Epiglottic Movement: Complete inversion Laryngeal Vestibule Closure at Height of Swallow: Incomplete; narrow column of air/contrast in laryngeal vestibule Pharyngeal Stripping Wave: Present - diminished Pharyngoesophageal Segment Opening: Complete distension and complete duration; no obstruction of flow Tongue Base Retraction: Narrow column of contrast between tongue base & post. pharyngeal wall Pharyngeal Residue: Collection of residue within or on pharyngeal structures - Esophageal Phase Esophageal Clearance: Esophageal retention - Diagnosis/Impression Diagnosis: Mild oropharyngeal dysphagia (R13.12), Esophageal dysphagia (R13.14) Impression: The oral phase is primarily marked by... -Piecemeal deglutition of pudding and cookie with good oral clearance with independent use of multiple swallows as needed. -Prolonged, but adequate mastication of cookie trial. The pharyngeal phase is primarily marked by... -Mildly decreased anterior hyoid excursion; however, pt demonstrated complete closure of the laryngeal vestibule during the swallow. Trace laryngeal penetration observed with thin liquids by cup 1X, which fully ejected from the laryngeal vestibule during the swallow. No aspiration observed. -Mildly decreased tongue base retraction and mildly decreased pharyngeal stripping wave with resulting trace-mild pharyngeal residues in the vallecula. Patient reports at home sensing foods becoming caught in her throat. The esophageal phase is primarily marked by... -Esophageal retention of pudding in the upper and mid esophagus. Liquid wash s omewhat cleared pudding residues through the lower esophageal sphincter. - Recommendations Diet: Thin Liquids - Easy to Chew textures (IDDSI Level 7) - add extra sauce/gravy to foods, avoid or moisten adhesive foods Comment: Consider 4-5 smaller meals per day vs. 3 large meals. Compensatory Strategies: Small Bites, Small Sips, Slow Rate, Alternate bites/solids and sips/liquids - 1-2 sips after each bite, Sitting upright, Remain sitting upright for 30 minutes after PO intake, Assist with verbal cues to use recommended strategies Supervision: Distant Supervision - Family to provide verbal cues as needed Recommend Repeat Modified Barium Swallow: No Need for Skilled Speech Therapy Services: Yes Comment: Will recommend the patient for outpatient dysphagia therapy to address mild deficits in oropharyngeal swallow function. Will recommend the patient for oropharyngeal strengthening to improve hyoid excursion, tongue base retraction, pharyngeal contraction, and duration of UES opening (CTAR, Elijah, effortful swallows, Pat). The patient would benefit from thorough education regarding diet recommendations and recommended compensatory strategies. Additionally, outpatient speech therapy warranted due to family and patient's concerns for increased difficulty speaking in the past year. Recommended Referrals: GI Consult Education Completed: 1. Described result of evaluation., 2. Pt understands evaluation & agrees with goals and treatment plan., 4. Family/caregivers understand evaluation & agree w/ goals & tx plan., 7. Pt requires further e ducation on strategies & risks., 8. Family/caregivers require further education on strategies & risks. - Status Active ST Patient: Active - Contact Information [facility] Speech Therapy:: Ellen Cao M.A. [facility]-[employer] Speech-Language Pathologist [facility] [address] [place] [address] [email or web address] [phone] 10/11/22 15:47
== END | disposition home or self-care (01) ==
LOC: RAD 10-12 15:41
PROVIDERS: PCP Internal Medicine; Visit Provider Internal Medicine
DX: G20 Parkinson's disease (principal); R05.3 Chronic cough
CPT/HCPCS: 92611

== ENCOUNTER → 2022-10-11 | Outpatient (CLI) | payer MEDICARE, OTHER, SELFPAY | END | disposition home or self-care (01) | LOC: RAD 13:16 | PROVIDERS: PCP Internal Medicine; Referring Provider Internal Medicine; Visit Provider Internal Medicine | DX: G20 Parkinson's disease (principal); R05.3 Chronic cough | CPT/HCPCS: 74230 ==

== ENCOUNTER 2022-12-28 17:30 | Outpatient (RCR) | payer MEDICARE, OTHER, SELFPAY ==
--- NOTE | 2022-10-18 15:39 | ST ---
Modified Barium Swallow - Patient Information Study Date: 10/11/22 Study Time: 13:00 Direct Billable Minutes: 112 Total Minutes procedure & reportin Diagnosis: Dysphagia, unspecified (R13.10) Referring Physician: Juan J Hi Reason for Referral: Objectively assess swallow function, assess risk for aspiration, and determine recommendations for least restrictive diet textures and compensatory strategies to improve safety of swallow. 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 Patient reports trouble swallowing saliva and sometimes difficulty swallowing food and drink. Patient unable to provide BENEFITS DIRECTOR with details regarding what foods/drinks give her difficulty or the nature of the difficulty; however, she told BENEFITS DIRECTOR following the study that at times foods feel stuck in her throat. Patient lives with her and son. Son unable to provide further details other than he observes patient to have a lot of coughing at home. She has been experiencing swallowing difficulty, as well as decreased speech volume. She sees, neurologist, Dr. Schulte, in [place], [place] and has been taking Carbidopa-Levodopa since last year - son states patient has no official neurological diagnosis at this time due to patient's inability to participate in necessary testing. Current Diet Ordered: Easy to chew textures / Thin liquids Dentition: Natural Teeth, Missing Teeth Respiratory Status: Oxygenating on Room Air - Penetration-Aspiration Scale Penetration-Aspiration Scale: OBJECTIVE ASSESSMENT OF SWALLOW FUNCTION (QUANTITATIVE ? PER TRIAL): PENETRATION / ASPIRATION SCALE (CLEMENS): 1 = does not enter airway 2 = enters airway/above vocal folds/ejected 3 = enters airway/above vocal folds/not ejected 4 = enters airway/contacts vocal folds/ejected 5 = enters airway/contacts vocal folds/not ejected 6 = enters airway/below vocal folds/ejected 7 = enters airway/below vocal folds/not ejected despite effort 8 = enters airway/below vocal folds/no effort VIDEOFLOROSCOPIC SCALE SCORE (CLEMENS): Grade I = aspiration of material that has penetrated into the laryngeal vestibule, intact cough reflex Grade II = aspiration < 10 % of the bolus, intact cough reflex Grade III = aspiration of < 10 % of the bolus, reduced cough reflex or aspiration of > 10 % of the bolus, intact cough reflex Grade IV = aspiration of > 10 % of the bolus, reduced cough reflex - Penetration-Aspiration Scale Score Thin Liquid via teaspoon Result: 1= does not enter airway Thin Liquid via teaspoon Trial 2 Result: 1= does not enter airway Thin Liquid via small single sip from cup Result: 2= enter airway/above vocal folds/ejected Thin Liquid via sequential sips from cup Result: 1= does not enter airway [place] Thick Liquid via small single sip from cup Result: 1= does not enter airway Pudding via teaspoon with esophageal screen Result: 1= does not enter airway Thin Liquid via sequential sips from straw with esophageal screen Result: 1= does not enter airway 1/4 Cookie Result: 1= does not enter airway - Oral Phase Labial Seal: No Labial Escape Tongue Control During Bolus Hold: Posterior escape of less than half of bolus Bolus Preparation/Mastication: Slow prolonged chewing/mashing with complete recollection Bolus Transport/Lingual Motion: Delayed initiation of tongue motion Oral Residue: Majority of bolus remaining - piecemeal deglutition of pudding and cookie - Pharyngeal Phase Initiation of Pharyngeal Swallow: Bolus head at posterior laryngeal surgace of epiglottis Laryngeal Elevation: Comp. Superior move thyroid cart w/comp. apprx arytenoid cart-epig pet Anterior Hyoid Excursion: Partial anterior movement Epiglottic Movement: Complete inversion Laryngeal Vestibule Closure at Height of Swallow: Incomplete; narrow column of air/contrast in laryngeal vestibule Pharyngeal Stripping Wave: Present - diminished Pharyngoesophageal Segment Opening: Complete distension and complete duration; no obstruction of flow Tongue Base Retraction: Narrow column of contrast between tongue base & post. pharyngeal wall Pharyngeal Residue: Collection of residue within or on pharyngeal structures - Esophageal Phase Esophageal Clearance: Esophageal retention - Diagnosis/Impression Diagnosis: Mild oropharyngeal dysphagia (R13.12), Esophageal dysphagia (R13.14) Impression: The oral phase is primarily marked by... -Piecemeal deglutition of pudding and cookie with good oral clearance with independent use of multiple swallows as needed. -Prolonged, but adequate mastication of cookie trial. The pharyngeal phase is primarily marked by... -Mildly decreased anterior hyoid excursion; however, pt demonstrated complete closure of the laryngeal vestibule during the swallow. Trace laryngeal penetration observed with thin liquids by cup 1X, which fully ejected from the laryngeal vestibule during the swallow. No aspiration observed. -Mildly decreased tongue base retraction and mildly decreased pharyngeal stripping wave with resulting trace-mild pharyngeal residues in the vallecula. Patient reports at home sensing foods becoming caught in her throat. The esophageal phase is primarily marked by... -Esophageal retention of pudding in the upper and mid esophagus. Liquid wash somewhat cleared pudding residues through the lower esophageal sphincter. - Recommendations Diet: Thin Liquids - Easy to Chew textures (IDDSI Level 7) - add extra sauce/gravy to foods, avoid or moisten adhesive foods Comment: Consider 4-5 smaller meals per day vs. 3 large meals. Compensatory Strategies: Small Bites, Small Sips, Slow Rate, Alternate bites/solids and sips/liquids - 1-2 sips after each bite, Sitting upright, Remain sitting upright for 30 minutes after PO intake, Assist with verbal cues to use recommended strategies Supervision: Distant Supervision - Family to provide verbal cues as needed Recommend Repeat Modified Barium Swallow: No Need for Skilled Speech Therapy Services: Yes Comment: Will recommend the patient for outpatient dysphagia therapy to address mild deficits in oropharyngeal swallow function. Will recommend the patient for oropharyngeal strengthening to improve hyoid excursion, tongue base retraction, pharyngeal contraction, and duration of UES opening (CTAR, Elijah, effortful swallows, Pat). The patient would benefit from thorough education regarding diet recommendations and recommended compensatory strategies. Additionally, outpatient speech therapy warranted due to family and patient's concerns for increased difficulty speaking in the past year. Recommended Referrals: GI Consult Education Completed: 1. Described result of evaluation., 2. Pt understands evaluation & agrees with goals and treatment plan., 4. Family/caregivers understand evaluation & agree w/ goals & tx plan., 7. Pt requires further education on strategies & risks., 8. Family/caregivers require further education on strategies & risks. - Contact Information [facility] Speech Therapy:: Ellen Cao M.A. [facility]-BENEFITS DIRECTOR Speech-Language Pathologist [facility] [address] [place] [address] [email or web address] [phone] 10/11/22 15:47
--- NOTE | 2022-10-19 16:25 | HP.SP.EV_ITS ---
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 She sees, neurologist, Dr. Schulte, in [place], [place] and has been taking Carbidopa-Levodopa since last year - son states patient has no official neurological diagnosis at this time due to patient's inability to participate in necessary testing. 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 She sees, neurologist, Dr. Schulte, in [place], [place] and has been taking Carbidopa-Levodopa since last year - son states patient has no official neurological diagnosis at this time due to patient's inability to participate in necessary testing. Medications related to this diagnosis: Carbadopa levadopa Smoking Status: Never smoker Hx Tobacco Use: No - Pain Is pain an issue with your current prescribed condition?: No Patient Allergies - Allergies Allergies No Known Allergies Allergy (Verified 08/26/22 11:13) Subjective Dysphagia - Symptoms Reported Symptoms/Problems with: Difficulty Swallowing Solids, Food gets stuck - Current Diet Solids Current Diet: Soft - Current Diet Liquids Current Liquids: Thin Feldman free water Protocol: No Objective Dysphagia - Recommendations Modified Barium Swallow/Cookie Swallow Recommended: No Swallowing Treatment: Yes - Diet Texture Recommendations Solids: Easy to Chew (Level 7) Liquids: Thin (Level 0) - Safety Saftey Precautions/Swallowing Recommendations (Check all that Apply): Needs Verbal Cues to Use Recommended Strategies, Upright Position at Least 30 Minutes After Meals, Small Sips & Bites when Eating, Alternate Liquids & Solids - Results Swallowing Within Normal Limits: No Swallowing Diagnosis: Oropharyngeal Phase Dysphagia (R13.12) Severity: Mild Modified Barium Results Hx MBS Results (from prior exam): 10/18/22 15:39 Speech Therapy by Jose Quinn Modified Barium Swallow - Patient Information Study Date: 10/11/22 Study Time: 13:00 Direct Billable Minutes: 112 Total Minutes procedure & reportin Diagnosis: Dysphagia, unspecified (R13.10) Referring Physician: Juan J Hi Reason for Referral: Objectively assess swallow function, assess risk for aspiration, and determine recommendations for least restrictive diet textures and compensatory strategies to improve safety of swallow. 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 Patient reports trouble swallowing saliva and sometimes difficulty swallowing food and drink. Patient unable to provide PHP WORDPRESS DEVELOPER with details regarding what foods/drinks give her dif ficulty or the nature of the difficulty; however, she told PHP WORDPRESS DEVELOPER following the study that at times foods feel stuck in her throat. Patient lives with her and son. Son unable to provide further details other than he observes patient to have a lot of coughing at home. She has been experiencing swallowing difficulty, as well as decreased speech volume. She sees, neurologist, Dr. Schulte, in [place], [place] and has been taking Carbidopa-Levodopa since last year - son states patient has no official neurological diagnosis at this time due to patient's inability to participate in necessary testing. Current Diet Ordered: Easy to chew textures / Thin liquids Dentition: Natural Teeth, Missing Teeth Respiratory Status: Oxygenating on Room Air - Penetration-Aspiration Scale Penetration-Aspiration Scale: OBJECTIVE ASSESSMENT OF SWALLOW FUNCTION (QUANTITATIVE ? PER TRIAL): PENETRATION / ASPIRATION SCALE (CLEMENS): 1 = does not enter airway 2 = enters airway/above vocal folds/ejected 3 = enters airway/above vocal folds/not ejected 4 = enters airway/contacts vocal folds/ejected 5 = enters airway/contacts vocal folds/not ejected 6 = enters airway/below vocal folds/ejected 7 = enters airway/below vocal folds/not ejected despite effort 8 = enters airway/below vocal folds/no effort VIDEOFLOROSCOPIC SCALE SCORE (CLEMENS): Grade I = aspiration of material that has penetrated into the laryngeal vestibule, intact cough reflex Grade II = aspiration < 10 % of the bolus, intact cough reflex Grade III = aspiration of < 10 % of the bolus, reduced cough reflex or aspiration of > 10 % of the bolus, intact cough reflex Grade IV = aspiration of > 10 % of the bolus, reduced cough reflex - Penetration-Aspiration Scale Score Thin Liquid via teaspoon Result: 1= does not enter airway Thin Liquid via teaspoon Trial 2 Result: 1= does not enter airway Thin Liquid via small single sip from cup Result: 2= enter airway/above vocal folds/ejected Thin Liquid via sequential sips from cup Result: 1= does not enter airway [place] Thick Liquid via small single sip from cup Result: 1= does not enter airway Pudding via teaspoon with esophageal screen Result: 1= does not enter airway Thin Liquid via sequential sips from straw with esophageal screen Result: 1= does not enter airway 1/4 Cookie Result: 1= does not enter airway - Oral Phase Labial Seal: No Labial Escape Tongue Control During Bolus Hold: Posterior escape of less than half of bolus Bolus Preparation/Mastication: Slow prolonged chewing/mashing with complete recollection Bolus Transport/Lingual Motion: Delayed initiation of tongue motion Oral Residue: Majority of bolus remaining - piecemeal deglutition of pudding and cookie - Pharyngeal Phase Initiation of Pharyngeal Swallow: Bolus head at posterior laryngeal surgace of epiglottis Laryngeal Elevation: Comp. Superior move thyroid cart w/comp. apprx arytenoid cart-epig pet Anterior Hyoid Excursion: Partial anterior movement Epiglottic Movement: Complete inversion Laryngeal Vestibule Closure at Height of Swallow: Incomplete; narrow column of air/contrast in laryngeal vestibule Pharyngeal Stripping Wave: Present - diminished Pharyngoesophageal Segment Opening: Complete distension and complete duration; no obstruction of flow Tongue Base Retraction: Narrow column of contrast between tongue base & post. pharyngeal wall Pharyngeal Residue: Collection of residue within or on pharyngeal structures - Esophageal Phase Esophageal Clearance: Esophageal retention - Diagnosis/Impression Diagnosis: Mild oropharyngeal dysphagia (R13.12), Esophageal dysphagia (R13.14) Impression: The oral phase is primarily marked by... -Piecemeal deglutition of pudding and cookie with good oral clearance with independent use of multiple swallows as needed. -Prolonged, but adequate mastication of cookie trial. The pharyngeal phase is primarily marked by... -Mildly decreased anterior hyoid excursion; however, pt demonstrated complete closure of the laryngeal vestibule during the swallow. Trace laryngeal penetration observed with thin liquids by cup 1X, which fully ejected from the laryngeal vestibule during the swallow. No aspiration observed. -Mildly decreased tongue base retraction and mildly decreased pharyngeal stripping wave with resulting trace-mild pharyngeal residues in the vallecula. Patient reports at home sensing foods becoming caught in her throat. The esophageal phase is primarily marked by... -Esophageal retention of pudding in the upper and mid esophagus. Liquid wash somewhat cleared pudding residues through the lower esophageal sphincter. - Recommendations Diet: Thin Liquids - Easy to Chew textures (IDDSI Level 7) - add extra sauce/gravy to foods, avoid or moisten adhesive foods Comment: Consider 4-5 smaller meals per day vs. 3 large meals. Compensatory Strategies: Small Bites, Small Sips, Slow Rate, Alternate bites/solids and sips/liquids - 1-2 sips after each bite, Sitting upright, Remain sitting upright for 30 minutes after PO intake, Assist with verbal cues to use recommended strategies Supervision: Distant Supervision - Family to provide verbal cues as needed Recommend Repeat Modified Barium Swallow: No Need for Skilled Speech Therapy Services: Yes Comment: Will recommend the patient for outpatient dysphagia therapy to address mild deficits in oropharyngeal swallow function. Will recommend the patient for oropharyngeal strengthening to improve hyoid excursion, tongue base retraction, pharyngeal contraction, and duration of UES opening (CTAR, Elijah, effortful swallows, Pat). The patient would benefit from thorough education regarding diet recommendations and recommended compensatory strategies. Additionally, outpatient speech therapy warranted due to family and patient's concerns for increased difficulty speaking in the past year. Recommended Referrals: GI Consult Education Completed: 1. Described result of evaluation., 2. Pt understands evaluation & agrees with goals and treatment plan., 4. Family/caregivers understand evaluation & agree w/ goals & tx plan., 7. Pt requires further education on strategies & risks., 8. Family/caregivers require further education on strategies & risks. - Contact Information [facility] Speech Therapy:: Ellen Cao M.A. CCC-PHP WORDPRESS DEVELOPER Speech-Language Pathologist [place] [address] [place] [address] [email or web address] [phone] 10/11/22 15:47 Initialized on 10/18/22 15:39 - END OF NOTE Objective Dysarthira/Motor - Volume Volume: Moderate - Observation Observation of Apraxia of Speech: No Oral Groping for Placement: No Inconsistent Errors: No Subjective Voice - Intubation Was the Client intubated: No Objective Voice - Date of Diagnosis Previous Speech Therapy (If yes, describe): No - Medications Familiar with on/off effect: No - Implantation Deep brain implantation (If yes, answer next question): No - Objective data Objective Data: Objective data: Sound pressure level (SPL acoustic correlation of vocal loudness) was measured with a sound level meter at a distance of 40 cm from the patient's mouth. Average conversational loudness is 70-80 dB and s ustained phonation duration is 15 to 20 seconds for a typical adult. Sustained Phonation Intensity (dB SPL): 68 Sustained Phonatin duration (seconds): 12 Is the individual stimulable to increase vocal intensity: Yes Vocal Intensity at Conversational Level (dB SPL): 60.5 dB Swallowing Performance Scale - Swallowing Performance Scale Swallowing Performance Scale Result: 3 Mild Plan - Plan Plan: A vocal intensity based intervention approach applying LSVT principles to improve her speech intelligibility will be used. Given the progressive nature of her primary diagnosis, It is not anticipated for a full return to pre-morbid level of functioning, though will expect to achieve gains in speech intelligibility as well as maintain current level of functioning. To achieve this, the patient will require continued skilled speech-language intervention not only through the current intervention cycle but will likely benefit from repeated intervention cycles to maintain communication efficiency. Dysphagia will be addressed through completion of exercises. - Recommendations MBS: No Treatment Warranted: Yes Treatment Warranted: Dysphagia, Voice - Progress Prognosis: Good - Frequency Frequency: 1-2x /Week Duration: 4 Weeks - Patient/Family Goal Patient/Family Goal: Patient wishes to be louder so everyone can hear her. This is also her son's goal. - Goals that are Established Determination:: Goals will be added/modified as deemed necessary and appropriate. Therapy will be discontinued when results of re-evaluation indicate therapy is no longer needed or lack of progress has been documented. - Goal #1-5 Goal #1: The Patient will demonstrate and utilize recommended velopharyngeal and oropharyngeal strengthening exercises to facilitate improved velopharyngeal and oropharyngeal strength and coordination with minimal cueing and prompting provide by the clinician, across 3 to 3 sessions. Goal #2: Patient will increase vocal loudness to reach a target sound pressure level of 70 dB PHP WORDPRESS DEVELOPER with 1 cue during sustained phonation, which will help increase vocal respiratory support for functional communication. Goal #3: Patient will increase vocal loudness to reach a target sound pressure level of 65 dB PHP WORDPRESS DEVELOPER with 1 cue during conversation for functional communication. Education - Patient has Indicated that the Following Identified Educational Needs: None The Patient has indicated that they have no educational or learning abilities that may effect their care.: Yes - Patient Instruction Patient Education: Diagnosis, Treatment Plan, Goals, Diet Level Person Taught: Patient, Family Teaching Method: Discussion Response to teaching: Verbalize understanding
--- NOTE | 2022-12-02 10:19 | HP.SP.REEV ---
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 She sees, neurologist, Dr. Schulte, in [place], [place] and has been taking Carbidopa-Levodopa since last year - son states patient has no official neurological diagnosis at this time due to patient's inability to participate in necessary testing. 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 She sees, neurologist, Dr. Schulte, in [place], [place] and has been taking Carbidopa-Levodopa since last year - son states patient has no official neurological diagnosis at this time due to patient's inability to participate in necessary testing. Medications related to this diagnosis: Carbadopa levadopa Smoking Status: Never smoker Hx Tobacco Use: No - Pain Is pain an issue with your current prescribed condition?: No Patient Allergies - Allergies Allergies No Known Allergies Allergy (Verified 08/26/22 11:13) Previous/Current Goals - Goals 1-5 Previous Goal #1: The Patient will demonstrate and utilize recommended velopharyngeal and oropharyngeal strengthening exercises to facilitate improved velopharyngeal and oropharyngeal strength and coordination with minimal cueing and prompting provide by the clinician, across 3 to 3 sessions. Goal 1 Status: GOAL CONTINUES: Paralee is able to complete exercises with minimal cues ( occasional reminder on what exercises she is doing). She reported that she does them intermittently at home. She was provided with a list of exercises and her son was present with no questions regarding home program. Previous Goal #2: Patient will increase vocal loudness to reach a target sound pressure level of 70 dB REFRACTORY MIXER with 1 cue during sustained phonation, which will help increase vocal respiratory support for functional communication. Goal 2 Status: GOAL MET: Initially, she was at 68dB. Currently, she was at 81.6 dB last session. Previous Goal #3: Patient will increase vocal loudness to reach a target sound pressure level of 65 dB REFRACTORY MIXER with 1 cue during conversation for functional communication. Goal 3 Status: GOAL PROGRESSING: Initially 60.5 dB. Currently: 62.5 dB last session. Subjective Dysphagia - Symptoms Reported Symptoms/Problems with: Difficulty Swallowing Solids, Food gets stuck - Current Diet Solids Current Diet: Soft - Current Diet Liquids Current Liquids: Thin [place] free water Protocol: No Objective Dysphagia - Recommendations Modified Barium Swallow/Cookie Swallow Recommended: No Swallowing Treatment: Yes - Diet Texture Recommendations Solids: Easy to Chew (Level 7) Liquids: Thin (Level 0) - Safety Saftey Precautions/Swallowing Recommendations (Check all that Apply): Needs Verbal Cues to Use Recommended Strategies, Upright Position at Least 30 Minutes After Meals, Small Sips & Bites when Eating, Alternate Liquids & Solids - Results Swallowing Within Normal Limits: No Swallowing Diagnosis: Oropharyngeal Phase Dysphagia (R13.12) Severity: Mild Modified Barium Results Hx MBS Results (from prior exam): 10/18/22 15:39 Speech Therapy by Jose Quinn Modified Barium Swallow - Patient Information Study Date: 10/11/22 Study Time: 13:00 Direct Billable Minutes: 112 Total Minutes procedure & reportin Diagnosis: Dysphagia, unspecified (R13.10) Referring Physician: Juan J Hi Reason for Referral: Objectively assess swallow function, assess risk for aspiration, and determine recommendations for least restrictive diet textures and compensatory strategies to improve safety of swallow. 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 Patient reports trouble swallowing saliva and sometimes difficulty swallowing food and drink. Patient unable to provide REFRACTORY MIXER with details regarding what foods/drinks give her difficulty or the nature of the difficulty; however, she told REFRACTORY MIXER following the study that at times foods feel stuck in her throat. Patient lives with her and son. Son unable to provide further details other than he observes patient to have a lot of coughing at home. She has been experiencing swallowing difficulty, as well as decreased speech volume. She sees, neurologist, Dr. Schulte, in [place], [place] and has been taking Carbidopa-Levodopa since last year - son states patient has no official neurological diagnosis at this time due to patient's inability to participate in necessary testing. Current Diet Ordered: Easy to chew textures / Thin liquids Dentition: Natural Teeth, Missing Teeth Respiratory Status: Oxygenating on Room Air - Penetration-Aspiration Scale Penetration-Aspiration Scale: OBJECTIVE ASSESSMENT OF SWALLOW FUNCTION (QUANTITATIVE ? PER TRIAL): PENETRATION / ASPIRATION SCALE (CLEMENS): 1 = does not enter airway 2 = enters airway/above vocal folds/ejected 3 = enters airway/above vocal folds/not ejected 4 = enters airway/contacts vocal folds/ejected 5 = enters airway/contacts vocal folds/not ejected 6 = enters airway/below vocal folds/ejected 7 = enters airway/below vocal folds/not ejected despite effort 8 = enters airway/below vocal folds/no effort VIDEOFLOROSCOPIC SCALE SCORE (CLEMENS): Grade I = aspiration of material that has penetrated into the laryngeal vestibule, intact cough reflex Grade II = aspiration < 10 % of the bolus, intact cough reflex Grade III = aspiration of < 10 % of the bolus, reduced cough reflex or aspiration of > 10 % of the bolus, intact cough reflex Grade IV = aspiration of > 10 % of the bolus, reduced cough reflex - Penetration-Aspiration Scale Score Thin Liquid via teaspoon Result: 1= does not enter airway Thin Liquid via teaspoon Trial 2 Result: 1= does not enter airway Thin Liquid via small single sip from cup Result: 2= enter airway/above vocal folds/ejected Thin Liquid via sequential sips from cup Result: 1= does not enter airway [place] Thick Liquid via small single sip from cup Result: 1= does not enter airway Pudding via teaspoon with esophageal screen Result: 1= does not enter airway Thin Liquid via sequential sips from straw with esophageal screen Result: 1= does not enter airway 1/4 Cookie Result: 1= does not enter airway - Oral Phase Labial Seal: No Labial Escape Tongue Control During Bolus Hold: Posterior escape of less than half of bolus Bolus Preparation/Mastication: Slow prolonged chewing/mashing with complete recollection Bolus Transport/Lingual Motion: Delayed initiation of tongue motion Oral Residue: Majority of bolus remaining - piecemeal deglutition of pudding and cookie - Pharyngeal Phase Initiation of Pharyngeal Swallow: Bolus head at posterior laryngeal surgace of epiglottis Laryngeal Elevation: Comp. Superior move thyroid cart w/comp. apprx arytenoid cart-epig pet Anterior Hyoid Excursion: Partial anterior movement Epiglottic Movement: Complete inversion Laryngeal Vestibule Closure at Height of Swallow: Incomplete; narrow column of air/contrast in laryngeal vestibule Pharyngeal Stripping Wave: Present - diminished Pharyngoesophageal Segment Opening: Complete distension and complete duration; no obstruction of flow Tongue Base Retraction: Narrow column of contrast between tongue base & post. pharyngeal wall Pharyngeal Residue: Collection of residue within or on pharyngeal structures - Esophageal Phase Esophageal Clearance: Esophageal retention - Diagnosis/Impression Diagnosis: Mild oropharyngeal dysphagia (R13.12), Esophageal dysphagia (R13.14) Impression: The oral phase is primarily marked by... -Piecemeal deglutition of pudding and cookie with good oral clearance with independent use of multiple swallows as needed. -Prolonged, but adequate mastication of cookie trial. The pharyngeal phase is primarily marked by... -Mildly decreased anterior hyoid excursion; however, pt demonstrated complete closure of the laryngeal vestibule during the swallow. Trace laryngeal penetration observed with thin liquids by cup 1X, which fully ejected from the laryngeal vestibule during the swallow. No aspiration observed. -Mildly decreased tongue base retraction and mildly decreased pharyngeal stripping wave with resulting trace-mild pharyngeal residues in the vallecula. Patient reports at home sensing foods becoming caught in her throat. The esophageal phase is primarily marked by... -Esophageal retention of pudding in the upper and mid esophagus. Liquid wash somewhat cleared pudding residues through the lower esophageal sphincter. - Recommendations Diet: Thin Liquids - Easy to Chew textures (IDDSI Level 7) - add extra sauce/gravy to foods, avoid or moisten adhesive foods Comment: Consider 4-5 smaller meals per day vs. 3 large meals. Compensatory Strategies: Small Bites, Small Sips, Slow Rate, Alternate bites/solids and sips/liquids - 1-2 sips after each bite, Sitting upright, Remain sitting upright for 30 minutes after PO intake, Assist with verbal cues to use recommended strategies Supervision: Distant Supervision - Family to provide verbal cues as needed Recommend Repeat Modified Barium Swallow: No Need for Skilled Speech Therapy Services: Yes Comment: Will recommend the patient for outpatient dysphagia therapy to address mild deficits in oropharyngeal swallow function. Will recommend the patient for oropharyngeal strengthening to improve hyoid excursion, tongue base retraction, pharyngeal contraction, and duration of UES opening (CTAR, Elijah, effortful swallows, Pat). The patient would benefit from thorough education regarding diet recommendations and recommended compensatory strategies. Additionally, outpatient speech therapy warranted due to family and patient's concerns for increased difficulty speaking in the past year. Recommended Referrals: GI Consult Education Completed: 1. Described result of evaluation., 2. Pt understands evaluation & agrees with goals and treatment plan., 4. Family/caregivers understand evaluation & agree w/ goals & tx plan., 7. Pt requires further education on strategies & risks., 8. Family/caregivers require further education on strategies & risks. - Contact Information [facility] Speech Therapy:: Ellen Cao M.A. [facility] Speech-Language Pathologist [place] [id number] [place] [address] [email or web address] [phone] 10/11/22 15:47 Initialized on 10/18/22 15:39 - END OF NOTE Objective Dysarthira/Motor - Volume Volume: Moderate - Observation Observation of Apraxia of Speech: No Oral Groping for Placement: No Inconsistent Errors: No Subjective Voice - Intubation Was the Client intubated: No Objective Voice - Date of Diagnosis Previous Speech Therapy (If yes, describe): No - Medications Familiar with on/off effect: No - Implantation Deep brain implantation (If yes, answer next question): No - Objective data Objective Data: Objective data: Sound pressure level (SPL acoustic correlation of vocal loudness) was measured with a sound level meter at a distance of 40 cm from the patient's mouth. Average conversational loudness is 70-80 dB and sustained phonation duration is 15 to 20 seconds for a typical adult. Sustained Phonation Intensity (dB SPL): 68 Sustained Phonatin duration (seconds): 12 Is the individual stimulable to increase vocal intensity: Yes Vocal Intensity at Conversational Level (dB SPL): 60.5 dB Swallowing Performance Scale - Swallowing Performance Scale Swallowing Performance Scale Result: 3 Mild Plan - Plan Plan: A vocal intensity based intervention approach applying LSVT principles to improve her speech intelligibility will be used. Given the progressive nature of her primary diagnosis, It is not anticipated for a full return to pre-morbid level of functioning, though will expect to achieve gains in speech intelligibility as well as maintain current level of functioning. To achieve this, the patient will require continued skilled speech-language intervention not only through the current intervention cycle but will likely benefit from repeated intervention cycles to maintain communication efficiency. Dysphagia will be addressed through completion of exercises and home program. - Recommendations MBS: No Treatment Warranted: Yes Treatment Warranted: Dysphagia, Voice - Progress Prognosis: Good - Frequency Frequency: 2x /Week Duration: 4 Weeks Visits in this POC: 8 - Patient/Family Goal Patient/Family Goal: Patient wishes to be louder so everyone can hear her. This is also her son's goal. - Goals that are Established Determination:: Goals will be added/modified as deemed necessary and appropriate. Therapy will be discontinued when results of re-evaluation indicate therapy is no longer needed or lack of progress has been documented. - Goal #1-5 Goal #1: The Patient will demonstrate and utilize recommended velopharyngeal and oropharyngeal strengthening exercises to facilitate improved velopharyngeal and oropharyngeal strength and coordination with minimal cueing and prompting provide by the clinician, across 3 to 3 sessions. Goal #2: Patient will increase vocal loudness to reach a target sound pressure level of 67 dB REFRACTORY MIXER with 1 cue during phrases/sentences for functional communication. Goal #3: Patient will increase vocal loudness to reach a target sound pressure level of 65 dB REFRACTORY MIXER with 1 cue during conversation for functional communication. Education - Patient has Indicated that the Following Identified Educational Needs: None The Patient has indicated that they have no educational or learning abilities that may effect their care.: Yes - Patient Instruction Patient Education: Diagnosis, Treatment Plan, Goals, Diet Level Person Taught: Patient, Family Teaching Method: Discussion Response to teaching: Verbalize understanding
--- NOTE | 2023-02-22 15:04 | HP.SP.DC_ITS ---
ST Discharge Summary Discharged: Discharge: Cory Phelps is discharged from speech therapy as of 12/28/22 from [facility]. She was treated for dysarthria and dysphagia. She had a total of 18 visits from her initial evaluation on 10/19/22. She was provided with dysphagia exercises which she reported that she did not consistently complete. Her goals for her dysarthria were focusing on volume for speech intelligibility due to reduced volume due to Parkinson?s. She made limited progress as her volume ranged typically around 59 dB. Even with maximal cues she had a difficult time in increasing her volume. She often stated that she did not do her home carry over program. Her son was educated on her home carry over program. Please see daily notes for complete details. Thank you for allowing me to participate in the care of this patient.
== END 2022-12-28 19:00 | disposition home or self-care (01) ==
LOC: SP 17:30
PROVIDERS: PCP Internal Medicine; Referring Provider Internal Medicine; Visit Provider Internal Medicine
DX: G20 Parkinson's disease (principal); R05.3 Chronic cough; R13.12 Dysphagia, oropharyngeal phase; R49.0 Dysphonia
CPT/HCPCS: 92507; 92524; 92526; 92610

== ENCOUNTER 2023-10-02 14:38 | Emergency (ER) | payer MEDICARE, OTHER, SELFPAY ==
[2023-10-02 14:40] VITALS: BP 90/66; PULSE 75; RESP 16; TEMP 36.2; O2SAT 100
[2023-10-02 14:49] VITALS: BMI 24.5
--- NOTE | 2023-10-02 15:29 | EDS_ITS ---
HPI History of Present Illness Chief Complaint: Lower Extremity Injury Detail of Chief Complaint: Fall 1 week ago and injury last night Informant: patient and family (Patient not a good informant. She has dementia.) Onset/Context/Timing Onset: Yesterday (Foot injury) and Weeks (1 week ago rolled out of bed complaining of right shoulder pain and right rib cage pain) Mechanism/Context: Blunt Injury and Fall Location of pain/injuries: Right shoulder and Left foot Quality of Pain: Dull and Aching Current Severity: Mild Maximum Severity: Severe Worsened by: Weightbearing left foot Relieved by: Nothing Associated Symptoms Associated Symptoms: Positive for Loss of function and Inability to ambulate; Negative for Parasthesias, Weakness or Loss of consciousness Narrative Narrative: Patient is an 82-year-old woman. She presents for 2 reasons. She complained of shoulder and chest pain due to cough week ago. She rolled out of bed was on the floor. There was no loss conscious. Is not on an anticoagulant or antithrombotic other than a baby aspirin. She denies paresthesia, anesthesia motors upper or lower extremity. She denies neck pain. She denies headache. Has complaint of left foot pain. She states he cannot put weight on it. The foot injury occurred last evening. She states it got caught. When I asked her to explain I am not able to determine what exactly happened. She was barefoot when this happened. 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) Takotsubo cardiomyopathy Home Medications aspirin 81 mg tablet,delayed release (Adult Low Dose Aspirin) 81 mg PO DAILY Heart health 04/25/18 [History Last Taken 03/24/21] acetaminophen 500 mg tablet 1,000 mg (2 x 500 mg) PO Q6H PRN PRN Pain Score 1-10 #0 tabs 04/16/21 [Rx Last Taken Unknown] polyethylene glycol 3350 17 gram/dose oral powder (Miralax) 17 g PO DAILY PRN constipation 07/21/21 [History Last Taken Unknown] duloxetine 30 mg capsule,delayed release 30 mg PO DAILY 02/01/22 [History Last Taken Unknown] carbidopa 25 mg-levodopa 100 mg tablet 1.5 tab PO TID 08/26/22 [History Last Taken Unknown] carvedilol 12.5 mg tablet 12.5 mg PO BID BP 08/26/22 [History Last Taken Unknown] oxybutynin chloride 15 mg tablet,extended release 24 hr 15 mg PO DAILY 08/26/22 [History Last Taken Unknown] nitroglycerin 0.4 mg sublingual tablet 0.4 mg sublingual Q5-15M Heart #25 tabs 08/29/22 [Rx Last Taken Unknown] multivitamin 1 tab PO DAILY 04/07/23 [History Last Taken Unknown] atorvastatin 40 mg tablet 40 mg PO QHS Cholestrol #90 tabs 05/08/23 [Rx Last Taken Unknown] pantoprazole 40 mg tablet,delayed release 40 mg PO Q12H 10/02/23 [History Last Taken Unknown] tramadol 50 mg tablet 50 mg PO Q12H 10/02/23 [History Last Taken Unknown] Allergy/AdvReac Type Severity Reaction Status Date / Time No Known Allergies Allergy Verified 04/07/23 13:40 Family History Mother CAD (coronary artery disease) Myocardial infarction Brother CAD (coronary artery disease) Myocardial infarction Brother Cancer Sister Heart disease Surgical History History of bilateral tubal ligation History of coronary artery stent placement (11/22/11) History of left heart catheterization (03/25/21) Social History household members: spouse and family housing: house Smoking Status: Never smoker alcohol intake: never substance use type: does not use ROS ROS ED Constitutional Constitutional ED: Denies chills, fever(s) or weight loss Eyes Eyes: Denies blurry vision or change in vision ENT ENT ED: Denies ear pain or sore throat Cardiovascular Cardiovascular: Reports chest pain; Denies palpitations or racing heartbeat Respiratory/Chest Respiratory/Chest: Denies cough, dyspnea or dyspnea on exertion Gastrointestinal Gastrointestinal: Denies abdominal pain, melena, nausea or vomiting Musculoskeletal Musculoskeletal: Reports other Details: Right shoulder, anterior right chest and left foot pain ; Denies arthralgias, back pain, myalgias or neck pain Integumentary Reports other Details: Bruising right upper extremity and left foot Neurologic Neurologic: Reports weakness; Denies headache(s) or paresthesias Hematologic/Lymphatic Hematologic/Lymphatic: Denies easy bleeding or easy bruising EXAM Physical Exam Const Vital Signs: 10/02/23 14:40 Temperature 97.1 F L Temperature Source Temporal Pulse Rate 75 Respiratory Rate 16 Blood Pressure 90/66 Blood Pressure Mean 74 Pulse Ox 100 Oxygen Delivery Method Room Air Positive well nourished and well developed General Appearance ED: well developed and NAD HEENT Reports TM's clear HEENT Narrative: There is no dental trauma. There is no palpable contusions or depressions noted. atraumatic; Negative for tenderness Nose: Negative for septum abnormal Tympanic Membrane ED: Yes TM's clear Eyes PERRL and EOMs intact bilaterally General Eye ED: Yes other Other Details: There is no subconjunctival hemorrhage. Neck full ROM General: Negative for tenderness or other Chest Wall inspection of chest normal and palpation of chest normal Chest Narrative: Patient complains of pain with palpation of right fifth through seventh rib. There is no crepitus subcutaneous air. Breath sounds are symmetric. Resp normal respiratory effort and clear to auscultation bilaterally Cardio regular rhythm, S1 normal heart sound, S2 normal heart sound and no murmurs GI normal to inspection, nondistended, normoactive bowel sounds, non-tender, non- distended and no masses Palpation: soft Back/Spine normal to inspection and no thoracic nor lumbar tenderness Extremity Negative for normal to inspection or full ROM Extremity Narrative: Bruising noted right upper extremity. Is no pain ovation of the clavicle or AC joint. There is no pain the patient of the proximal humerus. She is able to abductor arm past 120 degrees. There is significant soft tissue swelling with hematoma dorsal lateral aspect of the left foot. There is pain ovation of the base of the fifth metatarsal. There is no pain ovation of the lateral medial malleolus or calcaneus. There is no pain ovation over the phalanges. There is no pain the patient with a metatarsal bones 1 through 4 General Extremety ED: Yes tenderness; Negative for deformity General Extremity: Negative for deformity Neuro CN's II-XII intact bilaterally, moves all extremities, no focal motor deficits, no sensory deficits noted and No gait normal Eddie Coma Scale: document GCS findings Spontaneous Obeys Commands Sensorium / Orientation: Negative for alert Plantar Reflex: Downgoing: bilateral Psych thought process normal Psych Narrative: Affect is flat and mood is depressed. Skin no rashes or lesions noted and no jaundice MDM MDM MDM Narrative Medical decision making narrative: X-ray of the chest was obtained to rule out pneumothorax hemothorax and any obvious rib symptoms occurred over a week ago. In my opinion imaging of the right upper extremity is not indicated since there is no point tenderness and she has full active range of motion. Since she is unable to bear weight si gnificant swelling and tenderness over the base of the fifth metatarsal x-ray of the foot was obtained to evaluate for Anaya versus pseudo Anaya fracture. Radiography Chest X-Ray - ED: 2 View (2 view chest x-ray shows a large bleb right apices. Cardiac silhouette size normal. Perihilar regions unremarkable. There is no obvious pneumothorax, hemothorax or fractured ribs. This is independently reviewed interpreted by me at 1603.) and Read by ED Physician (Three-view x-ray of the foot reveals no fracture. There is soft tissue swelling. There is evidence of osteopenia. Film is suboptimal since it is underpenetrated. This too was independent reviewed interpreted by me at 1603) Discharge Plan Triage Chief Complaint: Lower Extremity Injury ED Provider: Vernon Scott Dx/Rx/DC Orders Clinical Impression: Contusion of right back wall of thorax, Hyperlipidemia, Essential (primary) hypertension, Atherosclerosis of coronary artery of [place] without angina pectoris, Contusion of multiple sites of right shoulder and upper arm, Contusion of left foot, initial encounter, Injury due to fall Instructions: Exercises to Prevent Falls, ED Foot Contusion, ED Contusion, Upper Extremity, ED Chest Wall Contusion Prescriptions: No Action polyethylene glycol 3350 [Miralax] 17 gram/dose powder 17 g PO DAILY PRN (Reason: constipation) duloxetine 30 mg capsule,delayed release(DR/EC) 30 mg PO DAILY carbidopa-levodopa 25-100 mg tablet 1.5 tab PO TID carvedilol 12.5 mg tablet 12.5 mg PO BID oxybutynin chloride 15 mg tablet extended release 24hr 15 mg PO DAILY Patient Comments: TAKE 1 TABLET BY MOUTH ONCE DAILY multivitamin Tablet 1 tab PO DAILY acetaminophen 500 mg Tablet 1,000 mg PO Q6H PRN PRN (Reason: Pain Score 1-10) Qty: 0 0RF tramadol 50 mg tablet 50 mg PO Q12H Patient Comments: Take 1 tablet by mouth two times a day for 30 days. For back pain. pantoprazole 40 mg tablet,delayed release (DR/EC) 40 mg PO Q12H Patient Comments: Take 1 tablet by mouth daily before breakfast. Take on empty stomach, 1/2 hr before meal. aspirin [Adult Low Dose Aspirin] 81 mg tablet,delayed release (DR/EC) 81 mg PO DAILY nitroglycerin 0.4 mg tablet, sublingual 0.4 mg SUBLINGUAL Q5-15M Qty: 25 3RF atorvastatin 40 mg tablet 40 mg PO QHS Qty: 90 3RF Primary Care Provider: Juan J Hi Referrals: Juan J Hi MD [Primary Care Provider] - 1 Week if not improving Activity Restrictions/Additional Instructions: 1. Apply ice to areas of discomfort 6-10 times a day for the next 3 to 5 days 2. Take Tylenol for pain Disposition Disposition: Home, Self Care
--- NOTE | 2023-10-02 15:35 | RAD_ITS ---
STUDY: X-RAY - LEFT FOOT CLINICAL: Female, 82 years old. Injury/Pain -- Pain to palpation base of the fifth metatarsal. TECHNIQUE: 3 view(s) of the foot. COMPARISON: None. FINDINGS: Normal talus, calcaneus, and tarsal bones. Normal visualized subtalar, talonavicular, calcaneocuboid, tarsal and tarsometatarsal articulations. Normal metatarsi. Normal metatarsophalangeal joint of the great toe. Normal tibial and fibular sesamoid bones. Normal interphalangeal joint of the great toe. Normal phalanges of the great toe. Normal second through fifth metatarsophalangeal joints. Normal interphalangeal joints and phalanges of the lesser toes. The soft tissue structures are unremarkable. Diffuse demineralization. RAD/Foot min 3 Views IMPRESSION: No fracture identified but sensitivity is limited due to demineralization. Electronically Signed: Teofilo Meadows MD at 16:54 EST ,
--- NOTE | 2023-10-02 15:35 | RAD_ITS ---
STUDY: X-RAY CHEST REASON FOR EXAM: Female, 82 years old. Blunt chest trauma right side pain 5 through 7 rib TECHNIQUE: Frontal and lateral views of the chest. COMPARISON: March 25, 2021 FINDINGS: Elevated right hemidiaphragm. The lungs are clear and expanded. There is no demonstrated pleural abnormality. Normal size heart. Normal mediastinum and roberto. Normal visualized pulmonary arteries. Normal visualized aortic arch and descending thoracic aorta. Moderate kyphosis. Diffuse demineralization. Possible lower lateral rib fractures. Possible ileus. RAD/Chest PA and Lateral IMPRESSION: Possible lower lateral rib fractures on the right. Possible ileus. Electronically Signed: Teofilo Meadows MD at 17:00 EST ,
[2023-10-02 16:21] VITALS: BP 108/56; PULSE 77; RESP 14; TEMP 36.5; O2SAT 95
== END 2023-10-02 16:22 | disposition home or self-care (01) ==
PROVIDERS: Emergency Provider Emergency Medicine; PCP Internal Medicine; Visit Provider Emergency Medicine
DX: S90.32XA Contusion of left foot, initial encounter (principal); F03.90 Unspecified dementia, unspecified severity, without behavioral disturbance, psychotic disturbance, mood disturbance, and anxiety; I25.10 Atherosclerotic heart disease of native coronary artery without angina pectoris; I10 Essential (primary) hypertension; R26.2 Difficulty in walking, not elsewhere classified; S40.011A Contusion of right shoulder, initial encounter; S20.221A Contusion of right back wall of thorax, initial encounter; E78.5 Hyperlipidemia, unspecified; S40.021A Contusion of right upper arm, initial encounter; Z79.82 Long term (current) use of aspirin; Z79.899 Other long term (current) drug therapy; W19.XXXA Unspecified fall, initial encounter
CPT/HCPCS: 71046; 73630; 99282

== ENCOUNTER → 2023-11-03 | Outpatient (CLI) | payer MEDICARE, OTHER, SELFPAY ==
[2023-11-03 16:41] LABS: Absolute Lymphocyte Count 1.31 X10^3/uL (0.83-4.51); Absolute Neutrophil Count 4.6 X10^3/uL (2.0-7.7); Basophil# 0.03 X10^3/uL; Basophil% 0.5 % (0-1); Eosinophil# 0.34 X10^3/uL; Eosinophils% 5.1 % (0-5); Hematocrit 42.9 % (37-47); Hemoglobin 13.9 g/dL (12.0-15.0); Lymphocyte # 1.31 X10^3/ul (0.83-4.51); Lymphocyte % 19.7 % (19-41); Mean Corp Hgb Conc 32.4 g/dL (32-36); Mean Corpuscular Hgb 32.9 pg (27.0-32.0); Mean Corpuscular Volume 101.7 fL (81-99); Mean Platelet Vol. 10.7 fl (6.2-12.0); Monocyte# 0.41 X10^3/uL; Monocyte% 6.2 % (0-10); NRBC Flagged by Analyzer 0 % (0-5); Neutrophil # 4.56 X10^3/uL (2.7-7.7); Neutrophil % 68.3 % (47-70); Platelet Count 226 K/mm3 (150-450); RBC Distribution Width CV 11.8 % (11.6-14.6); RBC Distribution Width SD 44.1 fl (35.1-43.9); Red Blood Count 4.22 M/mm3 (4.2-5.4); White Blood Count 6.7 K/mm3 (4.4-11.0)
[2023-11-03 17:10] LABS: BNP,B-Type NATRIURETIC PEPTIDE 38.5 pg/mL (0-100)
[2023-11-03 17:27] LABS: Anion Gap 4 (5-15); BUN 32 mg/dL (7-18); BUN/Creat Ratio 49.2 RATIO (10-20); Calcium,Total 9.5 mg/dL (8.5-10.1); Chloride 106 mmol/L (98-107); Creatinine, Serum 0.65 mg/dL (0.55-1.02); EST Glomerular Filtration Rate 93 mL/min (>60); Est Glom Filt Rate - Afr Amer 112 mL/min (>60); Glucose 118 mg/dL (74-106); Potassium 4.5 mmol/L (3.5-5.1); Sodium Level 140 mmol/L (136-145); Thyroid Stim Hormone (TSH) 2.76 uIU/mL (0.358-3.74)
== END | disposition home or self-care (01) ==
LOC: LAB 15:06
PROVIDERS: PCP Internal Medicine; Referring Provider Nurse Practitioner Gerontology; Visit Provider Nurse Practitioner Gerontology
DX: R06.02 Shortness of breath (principal); R53.83 Other fatigue
CPT/HCPCS: 36415; 80048; 83880; 84443; 85025

== ENCOUNTER → 2023-12-08 | Outpatient (CLI) | payer MEDICARE, OTHER, SELFPAY ==
--- NOTE | 2023-12-08 14:34 | ECHOD_ITS ---
Reason For Study: SOB Procedure This was a 2D Doppler, Color Flow transthoracic echocardiogram. Exam performed in department. Left Ventricle Normal LV size. Severe concentric left ventricular hypertrophy. Left ventricular systolic function is normal. The left ventricular ejection fraction is 70 %. Stage 1 diastolic dysfunction. No regional wall motion abnormalities noted. Right Ventricle Normal RV size. Normal systolic function. Atria Normal left atrium. Normal right atrium. Mitral Valve There is moderate mitral annular calcification. Mild (1+) eccentric mitral valve insufficiency. Tricuspid Valve Normal tricuspid valve. Mild tricuspid valve insufficiency. Pulmonary artery systolic pressure is 30 mmHg. Aortic Valve Trisinus/trileaflet aortic valve. Mild focal aortic valve thickening. Pulmonic Valve Normal pulmonic valve. Great Vessels Normal aortic root. The pulmonary artery is normal size. Normal inferior vena cava. Pericardium/Pleural No pericardial effusion. MMode/2D Measurements & Calculations LVIDd: 2.3 cm IVSd: 1.7 cm LAV(MOD-bp): 34.2 ml LVIDs: 1.6 cm LVPWd: 1.7 cm LAV(MOD-bp) Indexed: 22.8 ml/m2 FS: 29.2 % LAV(MOD-sp2): 37.5 ml LAV(MOD-sp4): 17.8 ml SV(MOD-sp4): 26.6 ml SV(sp4-el): 28.2 ml LVAd ap4: 19.5 cm2 LVLd ap4: 6.8 cm EDV(MOD-sp4): 46.5 ml EDV(sp4-el): 47.8 ml LVAs ap4: 11.3 cm2 LVLs ap4: 5.5 cm ESV(MOD-sp4): 19.9 ml ESV(sp4-el): 19.6 ml EF(MOD-sp4): 57.2 % EF(sp4-el): 59.0 % LA A4 area: 8.0 cm2 RA A4 area: 8.0 cm2 TAPSE: 2.0 cm Time Measurements MV dec time: 0.17 sec Doppler Measurements & Calculations MV E max hector: 58.8 cm/sec Lat Peak E' Hector: 6.3 cm/sec Med Peak E' Hector: 3.1 cm/sec MV A max hector: 95.7 cm/sec E/E' lat: 9.3 E/E' med: 18.8 MV E/A: 0.61 MV V2 max: 115.1 cm/sec MV dec slope: 343.7 cm/sec2 Ao V2 max: 162.6 cm/sec MV max P.3 mmHg Ao max P.6 mmHg MV V2 mean: 66.9 cm/sec Ao V2 mean: 109.8 cm/sec MV mean P.2 mmHg Ao mean P.6 mmHg MV V2 VTI: 21.4 cm Ao V2 VTI: 32.6 cm AV (velocity ratio): 1.1 LV V1 max: 156.5 cm/sec PA V2 max: 84.0 cm/sec TR max hector: 250.9 cm/sec LV V1 max P.8 mmHg PA V2 mean: 60.6 cm/sec TR max P.2 mmHg LV V1 mean P.2 mmHg LV V1 mean: 104.9 cm/sec LV V1 VTI: 36.5 cm ECHO/Echo Complete Interpretation Summary Normal LV size. Left ventricular systolic function is normal. The left ventricular ejection fraction is 70 %. Stage 1 diastolic dysfunction. Mild tricuspid valve insufficiency. Severe concentric left ventricular hypertrophy. Ordering Physician: Leah Curtis Referring Physician: Leah Curtis Performed By: Yessica Graves RCS
== END | disposition home or self-care (01) ==
LOC: CVS 14:32
PROVIDERS: PCP Internal Medicine; Referring Provider Nurse Practitioner Gerontology; Visit Provider Nurse Practitioner Gerontology
DX: R06.02 Shortness of breath (principal); I42.0 Dilated cardiomyopathy; I51.81 Takotsubo syndrome; I25.10 Atherosclerotic heart disease of native coronary artery without angina pectoris
CPT/HCPCS: 93306

== ENCOUNTER 2025-04-19 10:20 | Emergency (ER) | payer MEDICARE, OTHER, MEDICAID, SELFPAY ==
[2025-04-19 10:21] VITALS: BP 154/85; PULSE 83; RESP 18; TEMP 37.1; O2SAT 98; BMI 28.0
[2025-04-19] MEDS: Lidocaine 2% /Epi 1:100 (20ml) 20 ML VIAL INFILT (10:42)
--- NOTE | 2025-04-19 10:51 | CT_ITS ---
EXAM: CT Lumbar Spine Without Intravenous Contrast CLINICAL INDICATION: FALL TECHNIQUE: Axial computed tomography images of the lumbar spine without intravenous contrast. This CT exam was performed using one or more of the following dose reduction techniques: automated exposure control, adjustment of the mA and/or kV according to patient size, and/or use of iterative reconstruction technique. COMPARISON: No relevant prior studies available. FINDINGS: VERTEBRAE: The current study includes L2 to the coccyx. Degenerative facet arthropathy throughout the lumbar spine, most prominent in the lower lumbar spine. Moderate superior compression deformity of L4 vertebral body, likely chronic. DISCS/SPINAL CANAL/NEURAL FORAMINA: Degenerative disc disease throughout the lumbar spine. SOFT TISSUES: Unremarkable. VASCULATURE: Scattered calcified atherosclerotic disease of aorta. CT/Spine Lumbar without Contrast IMPRESSION: 1. The current study includes L2 to the coccyx. 2. If symptoms persist, further evaluation with MRI is recommended. 3. Moderate superior compression deformity of L4 vertebral body, likely chroni c. 4. Degenerative changes lumbar spine as described. Reading Location: [id number]
--- NOTE | 2025-04-19 10:51 | CT_ITS ---
EXAM: CT Cervical Spine Without Intravenous Contrast CLINICAL INDICATION: FALL TECHNIQUE: Axial computed tomography images of the cervical spine without intravenous contrast. This CT exam was performed using one or more of the following dose reduction techniques: automated exposure control, adjustment of the mA and/or kV according to patient size, and/or use of iterative reconstruction technique. COMPARISON: No relevant prior studies available. FINDINGS: VERTEBRAE: Degenerative facet arthropathy throughout the cervical spine. No acute fracture. DISCS/SPINAL CANAL/NEURAL FORAMINA: Degenerative disc disease throughout the cervical spine. SOFT TISSUES: Unremarkable. CT/Spine Cervical without Contras IMPRESSION: 1. No acute fracture. 2. Degenerative changes of the cervical spine as described. Reading Location: [id number]
--- NOTE | 2025-04-19 10:51 | CT_ITS ---
EXAM: CT Thoracic Spine Without Intravenous Contrast CLINICAL INDICATION: FALL TECHNIQUE: Axial computed tomography images of the thoracic spine without intravenous contrast. This CT exam was performed using one or more of the following dose reduction techniques: automated exposure control, adjustment of the mA and/or kV according to patient size, and/or use of iterative reconstruction technique. COMPARISON: No relevant prior studies available. FINDINGS: VERTEBRAE: Degenerative disc disease and facet arthropathy throughout the thoracic spine. No acute fracture. DISCS/SPINAL CANAL/NEURAL FORAMINA: See above. SOFT TISSUES: Unremarkable. LUNGS AND PLEURAL SPACES: Lung emphysema with scattered pulmonary nodules of both lungs, measuring up to [address] in [address]/Spine Thoracic without Contras IMPRESSION: 1. No acute fracture. 2. Lung emphysema with scattered pulmonary nodules of both lungs, measuring up to [address] in 12 months is recommended. 3. Degenerative changes thoracic spine as described. 4. If symptoms persist, further evaluation with MRI is recommended. Reading Location: [id number]
--- NOTE | 2025-04-19 10:51 | CT_ITS ---
PROCEDURE: BRAIN/HEAD WITHOUT CONTRAST 04/19/2025 REASON FOR EXAM: FALL HEAD TRAUMA TECHNIQUE: Procedure Code: CTBR Modality: CT Procedure: BRAIN/HEAD WITHOUT CONTRAST Coronal and Sagittal reconstruction series were provided. One or more dose reduction techniques were used (e.g., Automated exposure control, adjustment of the mA and/or kV according to patient size, use of iterative reconstruction technique. RADIATION DOSE SUMMARY: CTDlvol: 44.99 mGy DLP: 796.11 mGycm COMPARISON: None FINDINGS: Brain: There is no acute intracranial hemorrhage. No region of significant vasogenic edema. No mass effect or midline shift. Mild diffuse brain atrophy. Hypoattenuation throughout the deep and periventricular white matter, central jam, consistent with small vessel chronic ischemic change. CSF Spaces: The ventricles are midline, without hydrocephalus. No sizable extra-axial fluid collection. Sinuses/Mastoids: Minimal mucosal thickening at the alveolar recess of right maxillary sinus. Otherwise, normal. Bones: No evidence of skull fracture. Hyperostosis frontalis. Left posterior parietal scalp soft tissue injury with skin bernarda. CT/Brain/Head without Contrast IMPRESSION: No acute intracranial process Reading Location: [id number]
--- OUTSIDE RECORDS SUMMARY | 2025-04-19 11:23 | XMS RPT_ITS | CCD ---
Author Organization [facility] Care Team Providers Care Inbound Sales Manager Name Role Phone MD Alvarado Cyril S Unavailable Heaven Kingston Unavailable Juan J Hi MD Primary Care Provider Dr. Juan J Hi Primary Care Provider Dr. Martin Alvarado Attending Provider Dr. Juan J Hi Referring Provider MARLEY Samano Attending Provider Juan J Hi MD Primary Care Provider PROVIDER, UNKNOWN Referring Unavailable JUAN J HI Primary Care Unavailable Juan J Hi MD Primary Care Provider Dr. Juan J Hi Primary Care Provider Dr. Juan J Hi Referring Provider Dr. Martin Alvarado Attending Provider Dr. Juan J Hi Primary Care Provider Dr. Juan J Hi Referring Provider CARLA Curtis NP Attending Provider Aiyana Garcia PA-C Unavailable Aiyana Garcia PA-C Unavailable Jose Guadalupe PT, Amber Unavailable Juan J Hi MD Primary Care Provider Dr. Martin Alvarado Attending Provider Leah Curtis NP Attending Unavailable Juan J Hi Referring Unavailable Juan J Hi Primary Care Unavailable Juan J Hi Referring Unavailable Juan J Hi Primary Care Unavailable Leah Curtis NP Attending Unavailable Kim LEONARDO.Maral WARD Unavailable FERNANDO GALARZA JR Attending Unavailable JUAN J HI H Primary Care Unavailable JUAN J HI Attending Unavailable JUAN J HI Primary Care Unavailable Allergies Allergy Classification Reported Allergen(s) Allergy Type Date of Onset Reaction(s) Facility (20 sources) Angiotensin Converting Enzyme (Elina) Inhibitors; Translations: [ELINA INHIBITORS] drug allergy 01-03-2012 [facility] [employer] [facility] Work Phone: Medications Current Medications Medication Drug Class(es) Dates Sig (Normalized) Sig (Original) acetaminophen 500 mg oral tablet (20 sources) Start: 11-14-2022 take 1 tablet by mouth twice daily acetaminophen (TYLENOL) 500 mg tablet Indications: Neck pain , Pain in thoracic spine Take 1 tablet by mouth twice daily. 11/14/2022 Active Start: 04-22-2021 End: 11-14-2022 take 1 tablet by mouth every six hours as needed for pain acetaminophen (TYLENOL) 500 mg tablet Indications: Acute bilateral low back pain with bilateral sciatica Take 1 tablet by mouth every 6 hours as needed for pain. 0 04/22/2021 11/14/2022 Discontinued Start: 04-16-2021 take 1000 mg by mout h every six hours as needed Acetaminophen Active 1000 MG PO EVERY 6 HOURS NEEDED 0 April 16, 2021 12:00am Comment on above: Take 1 tablet by gabe th every 6 hours as needed for pain. Take 1 tablet by gabe th twice daily. aspirin 81 mg delayed release oral tablet (20 sources) Nonsteroidal Anti-inflammatory Drug Start: 04-25-2018 Aspirin (Adult Low Dose Aspirin) 81 mg tablet,delayed release (DR/EC) Active 81 MG PO DAILY April 25, 2018 12:00am Start: 01-03-2012 take 1 tablet by gabe th once daily ASPIRIN LOW DOSE 81 MG CHEW One tablet by mouth daily ASPIRIN [id number] Esmer Lacey RN Start: 01-03-2012 take 1 tablet by gabe th once daily ASPIRIN EC 81 MG TBEC One tablet by mouth daily ASPIRIN [id number] Esmer Lacey RN Start: 12-14-2011 take 1 tablet by gabe th once daily at mealtime Aspirin 81 mg ORAL Tab Indications: CAD (coronary artery disease) Take 1 tablet by mouth once daily. Take with food. 12/14/2011 Active Comment on above: Take 1 tablet by gabe th once daily. Take with food. atorvastatin 40 mg oral tablet (20 sources) HMG-CoA Reductase Inhibitor Start: 8 End: take 1 tablet by mouth once daily atorvastatin (LIPITOR) 40 mg tablet Take 1 tablet by mouth once daily. 90 tablet 3 08/31/2023 Active Start: 04-16-2013 take 1 tablet by gabe th once daily LIPITOR 80 MG TABS One tablet by mouth daily ATORVASTATIN CALCIUM [id number] Martin Alvarado MD Start: 04-11-2012 take 1 tablet by gabe th once daily ATORVASTATIN CALCIUM 40 MG TABS One tablet by mouth daily ATORVASTATIN CALCIUM [id number] Regina Rock PA-C Comment on above: Take 1 tablet by gabe once daily. carbidopa 50 mg / levodopa 200 mg extended release oral tablet (20 sources) Aromatic Amino Acid Decarboxylation Inhibitor, Aromatic Amino Acid Start: 03-18-2024 carbidopa-levodopa CR (SINEMET CR) 50-200 mg per tablet Indications: Parkinson's disease, unspecified whether dyskinesia present, unspecified whether manifestations fluctuate (HCC) Take 1 tab twice daily (morning and night). 60 tablet 2 03/18/2024 Active Start: 11-03-2023 take 3 tablets by mo uth three times daily Carbidopa-Levodopa Active 3 TABLET PO THREE TIMES A DAY November 03, 2023 2:49pm Start: 08-26-2022 End: 11-03-2023 take 1.5 tablets by mouth three times daily Carbidopa-Levodopa Discontinued 1.5 TABLET PO THREE TIMES A DAY August 26, 2022 1:00am November 03, 2023 2:50pm Start: 08-26-2022 take 1.5 tablets by mouth three times daily Carbidopa-Levodopa Active 1.5 TABLET PO THREE TIMES A DAY August 26, 2022 1:00am Start: 08-26-2022 take 1.5 tablets by mouth three times daily Carbidopa-Levodopa Active 1.5 TABLET PO THREE TIMES A DAY August 26, 2022 12:00am Start: 04-06-2022 End: 10-08-2024 take 1.5 tablets by mouth three times daily carbidopa-levodopa (SINEMET 25-100) 25-100 mg per tablet Indications: idiopathic parkinsonism Take 1.5 tablets by mouth three times daily. Take at mealtimes. 405 tablet 3 11/07/2022 08/31/2023 Discontinued Comment on above: Take 0.5 tablets by mouth three times daily for 7 days, THEN 1 tablet three times daily for 7 days, THEN 1.5 tablets three times daily for 7 days, THEN 2 tablets three times daily. Take at mealtimes. Stop increasing the dose at any point your symptoms are controlled. Take 1.5 tablets by mouth three times daily. Take at mealtimes. Take 1.5 tablets by mouth three times a day. Take at mealtimes. Take 1 tablet by gabe th three times a day. (First dose when wake at noon and then all other dose 4 hours apart - Noon, 4PM and 8PM). carvedilol 12.5 mg oral tablet (20 sources) alpha-Adrenergic Mango, beta-Adrenergic Mango Start: 2 End: 3 take 25 mg by mouth twice daily Carvedilol Discontinued 25 MG PO TWICE A DAY 180 December 16, 2021 2:54pm August 26, 2022 12:18pm Start: 03-27-2021 End: 03-08-2024 take 1 tablet by mouth twice daily carvedilol (COREG) 12.5 mg tablet Indications: Takotsubo cardiomyopathy Take 1 tablet by mouth two times a day. 180 tablet 3 03/08/2024 Active Comment on above: Take 1 tablet by gabe th twice daily. 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 30 tablet 2 03/18/2024 Active DULoxetine 60 mg delayed release oral capsule (20 sources) Serotonin and Norepinephrine Reuptake Inhibitor Start: 08-04-20 End: 02-13-20 take 1 capsule by mouth once daily DULoxetine (CYMBALTA) 60 mg capsule Indications: Adjustment disorder with mixed anxiety and depressed mood , Chronic bilateral low back pain with bilateral sciatica Take 1 capsule by mouth once daily. 90 capsule 1 02/13/2024 Active Start: 02-13-2023 take 1 capsule by mo [facility] once daily DULoxetine (CYMBALTA) 60 mg capsule Indications: Adjustment disorder with mixed anxiety and depressed mood , Chronic bilateral low back pain with bilateral sciatica Take 1 capsule by mouth once daily. 90 capsule 1 02/13/2023 Active Start: 12-25-2021 End: 02-13-2023 take 30 mg by mouth once daily Duloxetine Active 30 MG PO DAILY February 01, 2022 12:00am Start: 11-25-2021 End: 02-28-2022 take 1 capsule by mouth once daily DULoxetine (CYMBALTA) 20 mg capsule Indications: Adjustment disorder with mixed anxiety and depressed mood , Chronic bilateral low back pain with bilateral sciatica Take 1 capsule by mouth once daily. 30 capsule 0 11/25/2021 02/28/2022 Discontinued Comment on above: Take 1 capsule by mo ut once daily. folic acid/multivit-min/lutein (CENTRUM SILVER ORAL) (20 sources) folic acid/multivit-min/lutein (CENTRUM SILVER ORAL) Take by mouth once daily. Active folic acid/multi vit-min/lutein (CENTRUM SILVER ORAL) Take by mouth once daily. 0 Active Comment on above: Take by mouth once d aily. Food Supplement, Lactose-Free (PROTEIN NUTRITIONAL SHAKE) liqd (13 sources) Start: take 237 mL by mouth three times daily at mealtime Food Supplement, Lactose-Free (PROTEIN NUTRITIONAL SHAKE) liqd Indications: Parkinson's disease, unspecified whether dyskinesia present, unspecified whether manifestations fluctuate (HCC) Take 237 mL by mouth three times a day with meals. 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 200 Each 5 03/25/2020 11/14/2022 Discontinued Start: 03-25-2020 Incontinence P ad, Liner, Disp pads Indications: Urge incontinence 5 Each once daily. 200 Each 5 03/25/2020 Active Comment on above: 5 Each once daily. melatonin 3 mg oral tablet (20 sources) Start: 10-09-2023 End: 10-26-2024 take 1 tablet by mouth once daily at bedtime melatonin 3 mg tablet Indications: RBD (REM behavioral disorder) Take 1 tablet by mouth daily at bedtime. 90 tablet 1 04/29/2024 Active Comment on above: Take 1 tablet by gabe th daily at bedtime. mirtazapine 7.5 mg oral tablet (20 sources) Start: 01-11-2024 End: 04-22-2024 take 1 tablet by mouth once daily at bedtime Mirtazapine (REMERON) 7.5 mg tablet Indications: Adjustment disorder with mixed anxiety and depressed mood , Weight loss, non-intentional Take 1 tablet by mouth daily at bedtime. 30 tablet 2 04/23/2024 Active Start: 03-27-2021 End: 04-16-2021 take 1 tablet by mouth at bedtime Mirtazapine (Remeron) 30 mg tablet Discontinued 30 MG PO AT BEDTIME March 27, 2021 4:52pm April 16, 2021 2:26pm Multivitamin preparation (3 sources) Start: 04-07-2023 take 1 tablet by mouth once daily Multivitamin Active 1 TABLET PO DAILY April 07, 2023 12:00am Start: 04-07-2023 take 1 tablet by gabe th once daily Multivitamin Active 1 TABLET PO DAILY April 06, 2023 11:00pm nirmatrelvir tablet 300 mg (150 mg x 2) and ritonavir tablet 100 mg in a dose pack (PAXLOVID) (1 source) Start: 05-10-2022 End: 05-15-2022 nirmatrelvir tablet 300 mg (150 mg x 2) and ritonavir tablet 100 mg in a dose pack (PAXLOVID) Administer TWO pink nirmatrelvir 150 mg tablets and ONE white ritonavir 100 mg tablet for a total of three tablets twice daily. 30 tablet 0 05/10/2022 05/15/2022 Active Comment on above: Administer TWO pink nirmatrelvir 150 mg tablets and ONE white ritonavir 100 mg tablet for a total of three tablets twice daily. nitroglycerin 0.4 mg sublingual tablet (20 sources) Nitrate Vasodilator Start: 07-18-2019 End: 09-14-2023 nitroglycerin sublingual (NITROQUICK) 0.4 mg SL tablet Indications: CAD (coronary artery disease) Dissolve 1 tablet under the tongue every 5 minutes as needed for chest pain. 26 tablet 1 09/14/2023 Active Start: 01-03-2012 NITROGLYCERIN 0.4 MG SUBL 1 tablet under the tongue every 5 minutes times 3 as needed for chest pain. NITROGLYCERIN [id number] Regina Rock PA-C Comment on above: Dissolve 1 tablet un rahul the tongue every 5 minutes as needed for Chest Pain. [The details of the medication are not available because there are pending changes by a home health clinician.] nystatin 100 unt/mg topical powder (20 sources) Polyene Antifungal Start: 09-14-2018 nystatin (MYCOSTATIN) powder Indications: Candidal intertrigo [The details of the medication are not available because there are pending changes by a home health clinician.] 60 g 2 09/14/2018 Active Start: 09-14-2018 nystatin (MYCO STATIN) powder Indications: Candidal intertrigo Apply 1 application to affected area three times daily. 60 g 2 09/14/2018 Active Comment on above: Apply 1 application to affected area three times daily. [The details of the medication are not available because there are pending changes by a home health clinician.] 24 hr oxybutynin chloride 15 mg extended release oral tablet (20 sources) Cholinergic Muscarinic Antagonist Start: End: take 15 mg by mouth once daily Oxybutynin Chloride Discontinued 15 MG PO DAILY May 11, 2021 8:58am August 26, 2022 12:16pm Start: 04-28-2021 End: 04-22-2024 take 1 tablet by mouth once daily oxybutynin ER (DITROPAN XL) 15 mg 24 hr Extended Rel Tab Indications: Urge incontinence Take 1 tablet by mouth once daily. 90 tablet 3 04/23/2024 Active Start: 03-25-2021 End: 05-11-2021 take 10 mg by mouth once daily Oxybutynin Chloride Dis continued 10 MG PO DAILY March 25, 2021 12:00am May 11, 2021 8:59am Start: 06-23-2015 take 1 tablet by gabe th three times daily DITROPAN XL 5 MG [id number] One tablet by mouth three times daily OXYBUTYNIN CHLORIDE [id number] Martin Alvarado MD Comment on above: Take 1 tablet by gabe th once daily. pantoprazole 40 mg delayed release oral tablet (11 sources) Proton Pump Inhibitor Start: take 40 mg by mouth every twelve hours Pantoprazole Active 40 MG PO Q12H October 02, 2023 1:00am Start: 08-31-2023 End: 11-13-2023 take 1 tablet by mouth once daily before breakfast pantoprazole DR (PROTONIX) 40 mg tablet Indications: Chronic gastritis without bleeding, unspecified gastritis type , Gastroesophageal reflux disease without esophagitis Take 1 tablet by mouth daily before breakfast. Take on empty stomach, 1/2 hr before meal. 90 tablet 1 08/31/2023 11/13/2023 Discontinued (Discontinued by Patient) Start: 05-29-2023 End: 08-31-2023 take 1 tablet by mouth once daily before breakfast pantoprazole DR (PROTONIX) 20 mg tablet Indications: Chronic gastritis without bleeding, unspecified gastritis type , Gastroesophageal reflux disease without esophagitis Take 1 tablet by mouth daily before breakfast. Take on empty stomach, 1/2 hr before meal. 90 tablet 1 05/29/2023 08/31/2023 Discontinued (Dosage adjustment) Comment on above: Take 1 tablet by gabe th daily before breakfast. Take on empty stomach, 1/2 hr before meal. perflutren lipid microspheres 1.3 mL in NaCl (PF) 0.9% 10 mL injection (DEFINITY) (2 sources) Start: 3 End: 4 perflutren lipid microspheres 1.3 mL in NaCl (PF) 0.9% 10 mL injection (DEFINITY) polyethylene glycol 3350 19608 mg powder for oral solution (14 sources) Osmotic Laxative Start: 1 End: 1 Polyethylene Glycol 3350 (Miralax) 17 gram/dose powder Active 17 GM PO DAILY July 21, 2021 3:05pm 125 ml sodium chloride 9 mg/ml prefilled syringe (2 sources) Start: 3 End: 4 sodium chloride 0.9 % (flush) 10 mL (BD POSIFLUSH) sucralfate 100 mg/ml oral suspension (20 sources) Aluminum Complex Start: 4 take 10 mL by mouth every six hours sucralfate (CARAFATE) 100 mg/mL susp Indications: Chronic gastritis without bleeding, unspecified gastritis type Take 10 mL by mouth every 6 hours. 414 mL 09/14/2023 Active Comment on above: Take 10 mL by mouth every 6 hours. traMADol hydrochloride 50 mg oral tablet (20 sources) Opioid Agonist Start: 4 take 50 mg by mouth every twelve hours Tramadol Active 50 MG PO Q12H October 02, 2023 1:00am Start: 09-29-2023 End: 07-10-2024 take 1 tablet by mouth twice daily as needed for pain traMADol (ULTRAM) 50 mg tablet Indications: Chronic bilateral low back pain without sciatica Take 1 tablet by mouth two times a day as needed for pain for up to 90 days. For back pain. 60 tablet 2 04/11/2024 Active Start: 08-31-2023 End: 09-14-2023 take 1 tablet by mouth twice daily for pain traMADol (ULTRAM) 50 mg tablet Indications: Chronic bilateral low back pain with bilateral sciatica Take 1 tablet by mouth two times a day for 30 days. For back pain. 60 tablet 0 08/31/2023 09/14/2023 Discontinued Start: 10-13-2021 End: 11-14-2022 take 1 tablet by mouth twice daily for pain traMADol (ULTRAM) 50 mg tablet Indications: Chronic bilateral low back pain with bilateral sciatica Take 1 tablet by mouth twice daily. For back pain. 0 10/13/2021 11/14/2022 Discontinued Start: 03-25-2021 End: 07-21-2021 take 50 mg by mouth every four hours Tramadol Discontinued 50 MG PO Q4H March 25, 2021 12:00am July 21, 2021 3:05pm Comment on above: Take 1 tablet by gabe th twice daily. For back pain. Take 1 tablet by gabe th two times a day as needed for pain for up to 90 days. For back pain. Do not start before September 29, 2023. Take 1 tablet by gabe th two times a day for 30 days. For back pain. Underpads pads (20 sources) Start: 02-07-2024 Underpads pads Indications: Incontinence without sensory awareness , Dementia associated with Parkinson's disease (HCC) Washable underpad 10 Each 5 02/07/2024 Active Start: 02-07-2024 Underpads pads Indications: Incontinence without sensory awareness , Dementia associated with Parkinson's disease (HCC) Disposable 10 Each 5 02/07/2024 Active Completed/Discontinued Medications Medication Drug Class(es) Dates Sig (Normalized) Sig (Original) 200 actuat albuterol 0.09 mg/actuat metered dose inhaler (3 sources) beta2-Adrenergic Agonist Start: 01-10-2012 PROAIR HFA 108 (90 Base) MCG/ACT AERS as needed ALBUTEROL SULFATE [id number] Esmer Lacey RN alendronic acid 70 mg oral tablet (3 sources) Bisphosphonate Start: 06-24-2016 FOSAMAX 70 MG TABS one table weekly ALENDRONATE SODIUM [id number] Martin Alvarado MD biotin (6 sources) Start: 06-24-2016 take 1 tablet by mouth once daily BIOTIN FORTE TABS One tablet by mouth daily BIOTIN TABS [id number] Martin Alvarado MD Start: 06-24-2016 End: 07-11-2017 take 1 tablet by mouth once daily BIOTIN FORTE TABS One tablet by mouth daily BIOTIN TABS [id number] Martin Alvarado MD busPIRone hydrochloride 7.5 mg oral tablet (8 sources) Start: 08-11-2021 End: 11-25-2021 take 1 tablet by mouth twice daily busPIRone (BUSPAR) 7.5 mg tablet Indications: Adjustment disorder with mixed anxiety and depressed mood Take 1 tablet by mouth twice daily. 180 tablet 1 08/11/2021 11/25/2021 Discontinued (Changing Therapy/Dosage Form) Start: 04-16-2021 End: 02-01-2022 Buspirone Discontinued 5 MG PO 0800,1500 60 30 April 16, 2021 12:00am February 01, 2022 9:13am Comment on above: Take 1 tablet by [facility] twice daily. calcium carbonate / vitamin D (9 sources) Start: 04-16-2013 End: 06-23-2015 CALCIUM + D 600-200 MG-UNIT TABS uses liquid form - 1 Tbsp twice a day CALCIUM CARBONATE-VITAMIN D Martin Alvarado MD Start: 04-16-2013 CALCIUM + D 60 0-200 MG-UNIT TABS uses liquid form - 1 Tbsp twice a day CALCIUM CARBONATE-VITAMIN D Martin Alvarado MD Start: 01-10-2012 take 2 tablets by mo [facility] once daily CALCIUM + D 600-200 MG-UNIT TABS Two tablets by mouth daily CALCIUM CARBONATE-VITAMIN D [id number] Esmer Lacey RN cholecalciferol 0.025 mg oral capsule (20 sources) Vitamin D Start: 09-27-2022 End: 02-13-2023 take 1 capsule by mouth once daily Cholecalciferol, Vitamin D3, 25 mcg (1,000 unit) cap Take 1 capsule by mouth once daily. 90 capsule 3 09/27/2022 02/13/2023 Discontinued (Discontinued by Patient) Start: 04-22-2021 End: 09-27-2022 take 1 capsule by mouth once daily Cholecalciferol, Vitamin D3, 125 mcg (5,000 unit) cap Indications: Vitamin D deficiency Take 1 capsule by mouth once daily. 90 capsule 3 07/18/2022 09/27/2022 Discontinued (Clinical Decision) Start: 03-25-2021 End: 04-07-2023 take 125 ug by mouth once daily Cholecalciferol (Vitamin D3) Discontinued 125 MCG PO DAILY March 25, 2021 12:00am April 07, 2023 1:31pm Comment on above: Take 1 capsule by mo [facility] once daily. clopidogrel 75 mg oral tablet (20 sources) P2Y12 Platelet Inhibitor Start: 8 End: take 1 tablet by mouth once daily Clopidogrel (Plavix) 75 mg tablet Discontinued 75 MG PO daily January 15, 2020 8:28am March 23, 2021 5:29pm Start: 01-03-2012 take 1 tablet by gabe once daily PLAVIX 75 MG TABS One tablet by mouth daily CLOPIDOGREL BISULFATE [id number] Martin Alvarado MD ergocalciferol 10216 unt oral tablet (6 sources) Provitamin D2 Compound Start: 06-24-2016 take 1 tablet by mouth three times weekly VITAMIN D (ERGOCALCIFEROL) 62629 UNIT CAPS One tablet by mouth three times week ERGOCALCIFEROL [id number] Martin Alvarado MD Start: 04-16-2013 take 1 tablet by gabe every week VITAMIN D (ERGOCALCIFEROL) 84010 UNIT CAPS One tablet by mouth weekly ERGOCALCIFEROL [id number] Martin Alvarado MD gabapentin 300 mg oral capsule (6 sources) Anti-epileptic Agent Start: 04-11-2012 End: 04-16-2013 take 1 tablet by mouth three times daily GABAPENTIN 300 MG CAPS One tablet by mouth three times daily GABAPENTIN [id number] Martin Alvarado MD ipratropium bromide 0.021 mg/actuat nasal spray (6 sources) Anticholinergic Start: 10-10-2012 End: 04-16-2013 IPRATROPIUM BROMIDE 0.03 % SOLN Nasal spray as directed IPRATROPIUM BROMIDE [id number] Martin Alvarado MD ketotifen 0.25 mg/ml ophthalmic solution (6 sources) Histamine-1 Receptor Inhibitor Start: 01-10-2012 End: 06-23-2015 ZADITOR 0.025 % SOLN 1 drop each eye 1 X daily KETOTIFEN FUMARATE [id number] Esmer Lacey RN lisinopril 10 mg oral tablet (20 sources) Angiotensin Converting Enzyme Inhibitor Start: 03-25-2021 End: 10-02-2023 take 1 tablet by mouth once daily lisinopril (ZESTRIL) 10 mg tablet Indications: Essential hypertension, benign Take 1 tablet by mouth once daily. 90 tablet 3 11/04/2022 08/31/2023 Discontinued Comment on above: Take 1 tablet by gabe once daily. loratadine 10 mg oral tablet (6 sources) Start: 01-10-2012 End: 04-16-2013 take 1 tablet by mouth once daily LORATADINE 10 MG TABS One tablet by mouth daily LORATADINE [id number] Esmer Lacey RN losartan potassium 50 mg oral tablet (15 sources) Angiotensin 2 Receptor Mango Start: 11-01-2013 End: 06-24-2016 take 1 tablet by mouth once daily COZAAR 50 MG TABS One tablet by mouth daily LOSARTAN POTASSIUM [id number] Martin Alvarado MD Start: 10-14-2013 take 2 tablets by mo [facility] once daily COZAAR 25 MG TABS Two tablets by mouth daily LOSARTAN POTASSIUM [id number] Regina Rock PA-C Start: 01-03-2012 [facility] COZAAR 25 MG TABS One tablet by mouth daily LOSARTAN POTASSIUM [id number] Martin Alvarado MD meclizine hydrochloride 12.5 mg oral tablet (6 sources) Antiemetic Start: 01-10-2012 End: 04-16-2013 MECLIZINE HCL 12.5 MG TABS as needed MECLIZINE HCL [id number] Martin Alvarado MD memantine hydrochloride 5 mg oral tablet (6 sources) B-exsdfq-B-aspart ate Receptor Antagonist Start: 10-09-2023 End: 11-13-2023 take 1 tablet by mouth once daily, then take 1 tablet by mouth twice daily memantine (NAMENDA) 5 mg tablet Indications: Dementia associated with Parkinson's disease (HCC) Take 1 tablet by mouth daily for 1 week and then increase to 1 tablet twice daily and continue. 60 tablet 2 10/09/2023 11/13/2023 Discontinued (Discontinued by Patient) Comment on above: Take 1 tablet by gabe th daily for 1 week and then increase to 1 tablet twice daily and continue. 24 hr metoprolol succinate 50 mg extended release oral tablet (20 sources) beta-Adrenergic Mnago Start: 04-25-2018 End: 03-27-2021 take 1 tablet by mouth once daily Metoprolol Succinate (Toprol Xl) 50 mg tablet extended release 24 hr Discontinued 50 MG PO DAILY August 11, 2020 4:01pm March 27, 2021 2:06pm Start: 01-03-2012 take 1 tablet by gabe th once daily TOPROL XL 100 MG [id number] One half tablet by mouth daily METOPROLOL SUCCINATE [id number] Martin Alvarado MD Start: 01-03-2012 take 1 tablet by gabe th once daily TOPROL XL 50 MG [id number] One tablet by mouth daily METOPROLOL SUCCINATE [id number] Martin Alvarado MD montelukast 10 mg oral tablet (6 sources) Leukotriene Receptor Antagonist Start: 01-03-2012 End: 04-16-2013 take 1 tablet by mouth once daily at bedtime SINGULAIR 10 MG TABS One tablet by mouth daily at bedtime MONTELUKAST SODIUM [id number] Esmer Lacey RN pravastatin sodium 80 mg oral tablet (6 sources) HMG-CoA Reductase Inhibitor Start: 01-03-2012 End: 04-11-2012 take 1 tablet by mouth once daily at bedtime PRAVACHOL 80 MG TABS One tablet by mouth daily at bedtime PRAVASTATIN SODIUM [id number] Esmer Lacey RN raNITIdine 150 mg oral tablet (10 sources) Histamine-2 Receptor Antagonist Start: 04-25-2018 End: 07-12-2018 take 1 capsule by mouth once daily ranitidine 150 mg capsule Discontinued 150 MG PO DAILY April 25, 2018 12:00am July 12, 2018 2:20pm Start: 04-25-2018 End: 07-12-2018 take 1 capsule by mouth once daily ranitidine 150 mg capsule Discontinued 150 MG PO DAILY April 24, 2018 11:00pm July 12, 2018 1:20pm Start: 10-10-2012 RANITIDINE HCL 150 MG TABS One tablet by mouth as needed RANITIDINE HCL [id number] Martin Alvarado MD vitamin b 12 1 mg oral tablet (6 sources) Vitamin B12 Start: 01-10-2012 End: 07-11-2017 take 1 tablet by mouth once daily VITAMIN B-12 1000 MCG TABS One tablet by mouth daily CYANOCOBALAMIN [id number] Martin Alvarado MD vitamin b6 100 mg oral tablet (6 sources) Start: 06-20-2014 End: 06-24-2016 take 1 tablet by mouth once daily VITAMIN B-6 100 MG TABS One tablet by mouth daily PYRIDOXINE HCL [id number] Martin Alvarado MD vitamin d 1000 unt oral tablet (3 sources) Start: 10-10-2012 take 1 tablet by mouth twice daily VITAMIN D 1000 UNIT TABS One tablet by mouth twice daily CHOLECALCIFEROL [id number] Martin Alvarado MD Problems Active Problems Problem Classification Problem Date Documented Date Episodic/Chronic Adjustment disorders (20 sources) Adjustment disorder with mixed anxiety and depressed mood; Translations: [Adjustment disorder with mixed anxiety and depressed mood] Onset: 09-19-2019 Resolved: 10-01-2020 Chronic Asthma (20 sources) Asthma; Translations: [Unspecified asthma, uncomplicated] Onset: 11-24-2005 09-29-2015 Chronic Coronary atherosclerosis and other heart disease (20 sources) 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; Translations: [Old anterior myocardial infarction ] Onset: 11-22-2011 Resolved: 05-31-2023 06-17-2016 Chronic Delirium, dementia, and amnestic and other cognitive disorders (4 sources) Dementia; Translations: [Unspecified dementia without behavioral disturbance] Onset: 11-13-2023 10-10-2023 Chronic Disorders of lipid metabolism (20 sources) Hyperlipidemia; Translations: [Other hyperlipidemia] Onset: 01-03-2012 01-03-2012 Chronic E Codes: Fall (3 sources) Falling injury; Translations: [Unspecified fall, initial encounter] 10-02-2023 Episodic Esophageal disorders (20 sources) Gastroesophageal reflux disease without esophagitis; Translations: [Gastro-esophageal reflux disease without esophagitis] Onset: 03-09-2012 09-29-2015 Chronic Essential hypertension (20 sources) Hypertensive disorder; Translations: [Benign essential hypertension] Onset: 01-03-2012 01-03-2012 Chronic Gastritis and duodenitis (20 sources) Chronic gastritis; Translations: [Unspecified chronic gastritis without bleeding] Onset: 05-29-2023 09-14-2023 Chronic Genitourinary symptoms and ill-defined conditions (20 sources) Urge incontinence of urine; Translations: [Urge incontinence] Onset: 08-17-2016 08-17-2016 Chronic Heart valve disorders (4 sources) Heart murmur; Translations: [Cardiac murmur, unspecified] 11-03-2023 Episodic Immunizations and screening for infectious disease (2 sources) Contact with or exposure to other viral diseases; Translations: [Exposure to confirmed case of COVID-19] Episodic Malaise and fatigue (4 sources) Fatigue; Translations: [Other fatigue] 11-03-2023 Episodic Nonmalignant breast conditions (3 sources) Pain of breast; Translations: [Mastodynia] Episodic Nutritional deficiencies (20 sources) Vitamin D deficiency; Translations: [Vitamin D deficiency, unspecified] Onset: 07-04-2008 09-02-2017 Chronic Osteoarthritis (20 sources) Osteoarthritis; Translations: [Osteoarthrosis involving lower leg] Onset: 03-25-2008 Resolved: 09-14-2018 08-17-2016 Chronic Osteoporosis (20 sources) Osteoporosis; Translations: [Age-related osteoporosis without current pathological fracture] Onset: 06-06-2007 02-07-2018 Chronic Other acquired deformities (1 source) Postural kyphosis; 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, cervicothoracic region] Chronic Other and ill-defined heart disease (5 sources) Takotsubo syndrome; Translations: [Takotsubo syndrome] Chronic Other circulatory disease (1 source) Low blood pressure; Translations: [Hypotension, unspecified] 09-14-2023 Episodic Other lower respiratory disease (2 sources) Dyspnea; Translations: [Shortness of breath] 11-03-2023 Episodic Other lower respiratory disease (2 sources) Shortness of breath; Translations: [Shortness of breath] 11-03-2023 Episodic Other lower respiratory disease (1 source) Chronic cough; Translations: [Chronic cough] 09-14-2022 Episodic Other nervous system disorders (20 sources) Small fiber neuropathy; Translations: [Polyneuropathy, unspecified] Onset: 04-03-2012 04-03-2012 Chronic Other nervous system disorders (1 source) Other chronic pain; Translations: [Chronic low back pain, unspecified back pain laterality, unspecified whether sciatica present] Onset: 06-27-2005 Chronic Other non-traumatic joint disorders (1 source) Pain in right knee; Translations: [Pain in joint, lower leg] Episodic Other nutritional; endocrine; and metabolic disorders (20 sources) Obese class II; Translations: [Obesity, unspecified] Onset: 09-19-2019 09-19-2019 Chronic Other skin disorders (1 source) Epidermoid cyst of skin of scalp; Translations: [Epidermal cyst] Episodic Other upper respiratory disease (20 sources) Chronic rhinitis; Translations: [Chronic rhinitis] Onset: 03-07-2016 Resolved: 09-14-2018 09-14-2018 Chronic Other upper respiratory infections (2 sources) Acute upper respiratory infection; Translations: [Acute upper respiratory infection, unspecified] Episodic Parkinson`s disease (16 sources) Parkinsonism; Translations: [Parkinson's disease] Onset: 04-06-2022 Chronic Parkinson`s disease (1 source) Parkinson`s disease; Translations: [Parkinson's disease, unspecified whether dyskinesia present, unspecified whether manifestations fluctuate (HCC)] Onset: 05-15-2023 Residual codes; unclassified (3 sources) REM sleep behavior disorder; Translations: [REM sleep behavior disorder] 11-07-2023 Chronic Residual codes; unclassified (1 source) REM sleep behavior disorder; Translations: [RBD (REM behavioral disorder)] Onset: 03-18-2024 Chronic Spondylosis; intervertebral disc disorders; other back problems (20 sources) Chronic low back pain; Translations: [Lumbago with sciatica, left side] Onset: 05-04-2022 Resolved: 05-31-2023 Episodic Superficial injury; contusion (9 sources) Contusion of right back wall of thorax, initial encounter; Translations: [Contusion of right back wall of thorax] 10-02-2023 Episodic Unclassified (6 sources) Body mass index (BMI) 36.0-36.9, adult; Translations: [Body mass index (BMI) 40.0-44.9, adult] Onset: 06-20-2014 12-24-2015 Chronic Unclassified (20 sources) Parkinson's disease; Translations: [Parkinson's disease] Onset: 04-06-2022 05-15-2023 Chronic Unclassified (20 sources) Dementia associated with Parkinson's Disease; Translations: [Dementia associated with Parkinson's disease (HCC)] Onset: 11-13-2023 11-07-2023 Chronic Unclassified (9 sources) Long-term drug therapy; Translations: [Long-term (current) use of other medications] Onset: 10-22-2012 Resolved: 06-18-2015 10-22-2012 Unclassified (3 sources) Placement of stent in coronary artery ; Translations: [Presence of coronary angioplasty implant and graft] Onset: 01-03-2012 06-24-2016 Unclassified (1 source) Chronic low back pain, unspecified back pain laterality, unspecified whether sciatica present; Translations: [Chronic low back pain, unspecified back pain laterality, unspecified whether sciatica present] Onset: 06-27-2005 Viral infection (1 source) Disease caused by 2019-nCoV; Translations: [COVID-19] Episodic Past or Other Problems Problem Classification Problem Date Documented Da te Episodic/Chronic Abdominal hernia (20 sources) Diaphragmatic hernia; Translations: [Diaphragmatic hernia without obstruction or gangrene] Onset: 03-09-2012 Resolved: 09-14-2012 09-14-2012 Episodic Abdominal pain (20 sources) Upper abdominal pain; Translations: [Upper abdominal pain, unspecified] Onset: 02-13-2023 Resolved: 05-31-2023 Episodic Acute myocardial infarction (20 sources) ST elevation (STEMI) myocardial infarction involving other coronary artery of anterior wall; Translations: [Myocardial infarction] Onset: 01-03-2012 Resolved: 05-31-2023 01-03-2012 Chronic Anxiety disorders (20 sources) Mixed anxiety and depressive disorder; Translations: [Other specified anxiety disorders] Onset: 05-15-2023 Resolved: 05-31-2023 03-30-2021 Chronic Cardiac dysrhythmias (20 sources) Palpitations; Translations: [Palpitations] Onset: 06-10-2022 Resolved: 10-18-2023 Episodic Coma; stupor; and brain damage (2 sources) Daytime somnolence; Translations: [Somnolence] Onset: 03-18-2024 03-18-2024 Episodic Conditions associated with dizziness or vertigo (20 sources) Dizziness; Translations: [Dizziness and giddiness] Onset: 12-28-2010 Resolved: 09-14-2012 06-17-2016 Episodic Diabetes mellitus without complication (20 sources) Impaired fasting glycemia; Translations: [Impaired fasting glucose] Resolved: 09-29-2015 09-29-2015 Episodic Diseases of mouth; excluding dental (20 sources) Xerostomia; Translations: [Dry mouth, unspecified] Onset: 08-17-2016 Resolved: 09-14-2018 09-14-2018 Episodic Diverticulosis and diverticulitis (20 sources) Diverticulosis of colon; Translations: [Diverticulosis of large intestine without perforation or abscess without bleeding] Onset: 03-09-2012 Resolved: 09-14-2012 09-14-2012 Chronic Joint disorders and dislocations; trauma-related (20 sources) Derangement of meniscus; Translations: [Other meniscus derangements, unspecified lateral meniscus, unspecified knee] Onset: 03-25-2008 Resolved: 09-14-2012 09-14-2012 Chronic Nonspecific chest pain (20 sources) Chest pain; Translations: [Chest pain, unspecified] Onset: 05-15-2023 Resolved: 05-31-2023 04-04-2021 Episodic Nutritional deficiencies (20 sources) Cobalamin deficiency; Translations: [Deficiency of other specified B group vitamins] Onset: 12-16-2011 Resolved: 09-14-2018 09-14-2018 Episodic Other and ill-defined heart disease (20 sources) Takotsubo cardiomyopathy; Translations: [Takotsubo syndrome] Onset: 03-25-2021 Resolved: 05-31-2023 04-22-2021 Chronic Other connective tissue disease (20 sources) Pain in limb; Translations: [Pain in unspecified limb] Onset: 05-14-2012 Resolved: 09-14-2012 09-14-2012 Episodic Other gastrointestinal disorders (20 sources) Dysphagia; Translations: [Dysphagia, unspecified] Onset: 02-13-2023 Episodic Other injuries and conditions due to external causes (20 sources) Contusion; Translations: [Other injury of unspecified body region, initial encounter] Onset: 08-10-2007 Resolved: 06-24-2008 06-24-2008 Episodic Other nervous system disorders (20 sources) Tremor; Translations: [Tremor, unspecified] Onset: 11-25-2021 Resolved: 05-31-2023 Episodic Other nervous system disorders (20 sources) Abnormal gait; Translations: [Unsteadiness on feet] Onset: 11-25-2021 Episodic Other nervous system disorders (20 sources) Impaired cognition; Translations: [Other symptoms and signs involving cognitive functions and awareness] Onset: 08-31-2023 Resolved: 01-12-2024 08-31-2023 Episodic Other nutritional; endocrine; and metabolic disorders (20 sources) Obesity; Translations: [Obesity, unspecified] Resolved: 02-07-2018 02-07-2018 Chronic Other nutritional; endocrine; and metabolic disorders (20 sources) Obese class I; Translations: [Obesity, unspecified] Onset: 02-07-2018 Resolved: 09-19-2019 09-19-2019 Chronic Other nutritional; endocrine; and metabolic disorders (20 sources) Unintentional weight loss; Translations: [Abnormal weight loss] Onset: 02-13-2023 Episodic Other screening for suspected conditions (not mental disorders or infectious disease) (20 sources) Patient encounter status; Translations: [Encounter for screening mammogram for malignant neoplasm of breast] Onset: 03-09-2012 Resolved: 09-14-2012 Episodic Adelaida-; endo-; and myocarditis; cardiomyopathy (except that caused by tuberculosis or sexually transmitted disease) (20 sources) Heart valve disorder; Translations: [Endocarditis, valve unspecified] Onset: 05-03-2023 Resolved: 05-31-2023 05-03-2023 Chronic Residual codes; unclassified (20 sources) Obstructive sleep apnea syndrome; Translations: [Obstructive sleep apnea (adult) (pediatric)] Onset: 04-17-2012 Resolved: 03-17-2014 08-09-2021 Chronic Residual codes; unclassified (20 sources) Hypersomnia; Translations: [Hypersomnia, unspecified] Onset: 03-17-2014 Resolved: 09-29-2015 08-09-2021 Chronic Residual codes; unclassified (20 sources) History of cardiac catheterization; Translations: [Other specified postprocedural states] Onset: 03-25-2021 Resolved: 05-31-2023 03-26-2021 Episodic Skin and subcutaneous tissue infections (20 sources) Infection of skin; Translations: [Local infection of the skin and subcutaneous tissue, unspecified] Onset: 01-07-2010 Resolved: 09-14-2012 09-14-2012 Episodic Spondylosis; intervertebral disc disorders; other back problems (20 sources) Cervical spondylosis; Translations: [Other spondylosis with radiculopathy, cervical region] Onset: 05-14-2012 Resolved: 09-29-2015 09-29-2015 Chronic Sprains and strains (20 sources) Sprain of left ankle; Translations: [Sprain of unspecified ligament of left ankle, subsequent encounter] Onset: 08-10-2007 Resolved: 09-14-2012 10-12-2023 Episodic Unclassified (12 sources) Family history of ischemic heart disease and other diseases of the circulatory system; Translations: [Family history of ischemic heart disease and other diseases of the circulatory system] Resolved: 06-24-2016 06-24-2016 Episodic Unclassified (3 sources) Percutaneous transluminal coronary angioplasty ; Translations: [Coronary angioplasty status] Onset: 01-03-2012 01-03-2012 Results Test Name Value Interpretation Reference Range Facility Cardiology Visit Reporton Cardiology Visit Report [facility] [address] [place], [place] [address] OFFICE VISIT Date of Service: 12/12/24 MR#: [id number] Acct: [id number] Name: BREANNA PHELPS Rep #: [id number] : 1940 Provider: CARLA cruz Age/Sex: 84/F [place] [facility] [place]: Signed HPI HPI History of Present Illness Details: BREANNA PHELPS, is an 84 F who presents to the office today for a cardiovascular follow up visit. She presented to [facility] on [facility]2021 with chest discomfort, nausea and vomiting. She was admitted for a non-STEMI. She underwent an urgent heart catheterization which did not demonstrate any significant lesions but did demonstrate a decreased ejection fraction of 35%. She did have a moderate lesion in the LAD for which she underwent FFR which was 0.89 and felt to be insignificant. This was felt to be a Takotsubo. Her repeat echocardiogram in February 2022 demonstrated an ejection fraction of 65%, moderate concentric left ventricular hypertrophy and stage I diastolic dysfunction. Her has recently passed. Her son accompanies her to the visit, and states that she is being treated for dementia, and is now on Hospice Care. She is having trouble with swallowing. From a cardiac standpoint, the patient is doing well. She presents to the office in a wheel chair, she does use a cane to help with ambulation. She denies any palpitations, chest pain, pressure or heaviness. She denies SOB, Orthopnea, and PND. She does not have bleeding issues; no blood in urine, stool, or nosebleeds. She denies any decrease in energy level, myalgias, or claudication. She does not have edema, or sudden weight gain. She denies lightheadedness, dizziness, syncopal or near syncopal episodes, and headaches. Intake Vital Signs 04/16/24 14:28 12/12/24 14:46 Height 5 ft 5 ft Weight: 128 lb BMI 25.0 BP 121/72 H Blood Pressure Location Lt brachial Position Sitting Respiration 18 Pulse 69 Pulse Source Monitor Intake Visit Reasons: 9 M [place] Tender Required: No Is patient in pain?: No Allergies No Known Allergies Allergy (Verified 12/12/24 15:04) Medications ???Medication ???Instructions ???Recorded ???Confirmed ???Type aspirin 81 mg tablet,delayed 81 mg PO DAILY Heart health 12/12/24 History release (Adult Low Dose Aspirin) acetaminophen 500 mg tablet 1,000 mg (2 x 500 mg) PO Q6H PRN 0 04/16/21 12/12/24 Rx PRN Pain Score 1-10 #0 tabs polyethylene glycol 3350 17 17 g PO DAILY PRN constipation 04/0312/12/24 History gram/dose oral powder (Miralax) duloxetine 30 mg capsule,delayed 30 mg PO DAILY 02/01/22 12/12/24 H istory release carvedilol 12.5 mg tablet 12.5 mg PO BID BP 08/26/222 5 History oxybutynin chloride 15 mg 15 mg PO DAILY 08/26/22 12/12/24 H istory tablet,extended release 24 hr nitroglycerin 0.4 mg sublingual 0.4 mg sublingual Q5-15M Heart #25 08/29/22 12/12/24 Rx tablet tabs donepezil 10 mg tablet 10 mg PO QDAY 04/16/24 12/12/24 Hi story mirtazapine 7.5 mg tablet 7.5 mg PO QDAY 04/16/24 12/12/24 H istory carbidopa 25 mg-levodopa 100 mg 1 tab PO .qid 12/12/24 12/12/24 Hi story tablet melatonin 3 mg capsule 5 mg PO HS PRN 12/12/24 12/12/24 H istory Ejection fraction %: 70 Have you fallen in the past year?: No Nurse's Note: senna, oxycodone, carbidopa-levadopa, lidocaine patch does not know dosages. Patient is in hospice care. [facility] Medical History (Reviewed 12/12/24 @ 15:03 by Leah Curtis DIRECTOR HUMAN SERVICES, DIRECTOR HUMAN SERVICES-C) Takotsubo cardiomyopathy Non-ST elevated myocardial infarction Old anterolateral myocardial infarction (11/22/11) Obesity 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 pectoris Essential (primary) hypertension Hyperlipidemia Surgical History (Reviewed 12/12/24 @ 15:03 by Leah Curtis DIRECTOR HUMAN SERVICES, DIRECTOR HUMAN SERVICES-C) History of left heart catheterization (03/25/21) History of bilateral tubal ligation History of coronary artery stent placement (11/22/11) Family History Mother CAD (coronary artery disease) Myocardial infarction Brother CAD (coronary artery disease) Myocardial infarction Brother Cancer Sister Heart disease Social History household members: spouse and family housing: house Smoking Status: Never smoker alcohol intake: never substance use type: does not use ROS Const Const: Negative for fatigue, weakness, headache(s) or frequent falls Eyes Eyes: Negative for blurry vision ENT ENT: Negative for headache(s), dizziness or Nosebleed/epistaxis Cardio Chest Pain: No Palpitations: No Edema: None Muscle aches with walking: None Resp Respiratory: Negat (more content not included)... Normal [facility] 05-13-2024 [facility] Telephone (INTMWS) BREANNA PHELPS ([id number]) 1940 F Date Time Provider Department 05/13/24 JUAN J HI INTWS During your visit today, we recorded the following information about you: Cheyenne Degroot LPN 05/13/2024 9:00 AM Signed Meme from [facility] calling patient admitted to Hospice services on 05/11 at the patient's home. Juan J Hi MD 05/13/2024 11:53 PM Signed [place]. Allergies As of Date: 05/13/2024 Noted Allergy Reaction ELINA INHIBITORS 01/03/2012 3 - Cough Date Reviewed: 04/11/2024 Reviewed by: Monie Ugalde LPN - Fully Assessed Reason for Visit: hospice services [Other] Prescriptions as of 05/13/2024 - melatonin 3 mg tablet Take 1 tablet by mouth daily at bedtime. - oxybutynin ER (DITROPAN XL) 15 mg 24 hr Extended Rel Tab Take 1 tablet by mouth once daily. - Mirtazapine (REMERON) 7.5 mg tablet Take 1 tablet by mouth daily at bedtime. - traMADol (ULTRAM) 50 mg tablet Take 1 tablet by mouth two times a day as needed for pain for up to 90 days. For back pain. - carbidopa-levodopa CR (SINEMET CR) 50-200 mg per tablet Take 1 tab twice daily (morning and night). - donepezil (ARICEPT) 5 mg tablet Take 1 tablet by mouth daily at bedtime. - carvedilol (COREG) 12.5 mg tablet Take 1 tablet by mouth two times a day. - DULoxetine (CYMBALTA) 60 mg capsule Take 1 capsule by mouth once daily. - Diaper,Brief, Adult,Disposable (DISPOSABLE BRIEF) Medium pull up brief, 4 per day - Incontinence Pad, Liner, Disp pads Two per day - Underpads pads Washable underpad - Underpads pads Disposable - Food Supplement, Lactose-Free (PROTEIN NUTRITIONAL SHAKE) liqd Take 237 mL by mouth three times a day with meals. - nitroglycerin sublingual (NITROQUICK) 0.4 mg SL tablet Dissolve 1 tablet under the tongue every 5 minutes as needed for chest pain. - sucralfate (CARAFATE) 100 mg/mL susp Take 10 mL by mouth every 6 hours. - atorvastatin (LIPITOR) 40 mg tablet Take 1 tablet by mouth once daily. - acetaminophen (TYLENOL) 500 mg tablet Take 1 tablet by mouth twice daily. - folic acid/multivit-min/lute in (CENTRUM SILVER ORAL) Take by mouth once daily. - nystatin (MYCOSTATIN) powder Apply 1 application to affected area three times daily. - Aspirin 81 mg ORAL Tab Take 1 tablet by mouth once daily. Take with food. Problem List As Of Date 05/13/2024 Noted Resolved Chronic bilateral low back pain without sciatic* Impaired fasting glucose [R73.01] 09/29/2015 Obesity, unspecified [E66.9] 02/07/2018 Other hyperlipidemia [E78.49] BENIGN HYPERTENSION [I10] Asthma [J45.909] 11/24/2005 Osteoporosis [M81.0] 06/06/2007 SPRAIN OF NECK [S13.9XXA] 08/10/2007 06/24/2008 SPRAIN SHOULDER/ARM NOS [PQA1780] 08/10/2007 06/24/2008 Sprain and strain of unspecified site of knee a*08/10/2007 09/14/2012 CONTUSION NOS [T14.8XXA] 08/10/2007 06/24/2008 Osteoarthrosis involving lower leg [[id number]] 03/25/2008 Derangement of meniscus, not elsewhere classifi*03/25/2008 09/14/2012 Vitamin D deficiency [E55.9] 07/04/2008 Skin infection [L08.9] 01/07/2010 09/14/2012 Vertigo [R42] 12/28/2010 09/14/2012 CAD (coronary artery disease) [I25.10] 11/24/2011 B12 deficiency [E53.8] 12/16/2011 09/14/2018 Special screening for malignant neoplasms, colo*03/09/2012 09/14/2012 Diverticulosis of colon (without mention of hem*03/09/2012 09/14/2012 Gastroesophageal reflux disease without esophag*03/09/2012 Diaphragmatic hernia without mention of obstruc*03/09/2012 09/14/2012 Small fiber neuropathy [G62.9] 04/03/2012 YAMILETH (obstructive sleep apnea) [G47.33] 04/17/2012 03/17/2014 Pain in limb [M79.609] 05/14/2012 09/14/2012 Cervical spondylosis with radiculopathy [M47.22]05/14/2012 09/29/2015 Primary generalized (osteo)arthritis [M15.0] 07/31/2012 09/14/2018 Hypersomnia [G47.10] 03/17/2014 09/29/2015 Chronic nonallergic rhinitis [J31.0] 03/07/2016 09/14/2018 Urge incontinence [N39.41] 08/17/2016 Dry mouth [R68.2] 08/17/2016 09/14/2018 Dizziness and giddiness [R42] 02/15/2017 Obesity, Class I, BMI 30-34.9 [E66.9] 02/07/2018 09/19/2019 Obesity, Class II, BMI 35-39.9 [E66.9] 09/19/2019 Adjustment disorder with mixed anxiety and depr*09/19/2019 Adjustment disorder with depressed mood [F43.21]10/23/2019 10/01/2020 Takotsubo cardiomyopathy [I51.81] 03/25/2021 05/31/2023 Tremor [R25.1] 11/25/2021 05/31/2023 Unsteady gait [R26.81] 11/25/2021 Neck pain [M54.2] 06/02/2022 05/31/2023 Pain in thoracic spine [M54.6] 06/02/2022 05/31/2023 Parkinson's disease [G20.A1] 04/06/2022 Pain of upper abdomen [R10.10] 02/13/2023 05/31/2023 Weight loss, non-intentional [R63.4] 02/13/2023 Dysphagia [R13.10] 02/13/2023 VHD (valvular heart disease) [I38] 05/03/2023 05/31/[address] elevation myocardial infarction (*01/03/2012 05/31/2023 Diagnosed: 05/15/2023 ACS (acute coronary syndrome) ( (more content not included)... Normal [facility] 05-10-2024 [facility] Telephone (INTMWS) BREANNA PHELPS ([id number]) 1940 F Date Time Provider Department 05/10/24 JUAN J HI INTMWS During your visit today, we recorded the following information about you: Jasmina Correa LPN 05/10/2024 2:45 PM Signed Danna PA with [facility] calling, she was at patients home today for evaluation and is going to switch patient over to hospice due to her parkinson and it progressiveness. Patient and family were agreeable to this. Juan J Hi MD 05/10/2024 11:06 PM Signed I agree and can follow with hospice. Geovanna Garza LPN 05/13/2024 10:18 AM Signed Danna was notified. Allergies As of Date: 05/10/2024 Noted Allergy Reaction ELINA INHIBITORS 01/03/2012 3 - Cough Date Reviewed: 04/11/2024 Reviewed by: Monie Ugalde LPN - Fully Assessed Prescriptions as of 05/13/2024 - melatonin 3 mg tablet Take 1 tablet by mouth daily at bedtime. - oxybutynin ER (DITROPAN XL) 15 mg 24 hr Extended Rel Tab Take 1 tablet by mouth once daily. - Mirtazapine (REMERON) 7.5 mg tablet Take 1 tablet by mouth daily at bedtime. - traMADol (ULTRAM) 50 mg tablet Take 1 tablet by mouth two times a day as needed for pain for up to 90 days. For back pain. - carbidopa-levodopa CR (SINEMET CR) 50-200 mg per tablet Take 1 tab twice daily (morning and night). - donepezil (ARICEPT) 5 mg tablet Take 1 tablet by mouth daily at bedtime. - carvedilol (COREG) 12.5 mg tablet Take 1 tablet by mouth two times a day. - DULoxetine (CYMBALTA) 60 mg capsule Take 1 capsule by mouth once daily. - Diaper,Brief, Adult,Disposable (DISPOSABLE BRIEF) Medium pull up brief, 4 per day - Incontinence Pad, Liner, Disp pads Two per day - Underpads pads Washable underpad - Underpads pads Disposable - Food Supplement, Lactose-Free (PROTEIN NUTRITIONAL SHAKE) liqd Take 237 mL by mouth three times a day with meals. - nitroglycerin sublingual (NITROQUICK) 0.4 mg SL tablet Dissolve 1 tablet under the tongue every 5 minutes as needed for chest pain. - sucralfate (CARAFATE) 100 mg/mL susp Take 10 mL by mouth every 6 hours. - atorvastatin (LIPITOR) 40 mg tablet Take 1 tablet by mouth once daily. - acetaminophen (TYLENOL) 500 mg tablet Take 1 tablet by mouth twice daily. - folic acid/multivit-min/lute in (CENTRUM SILVER ORAL) Take by mouth once daily. - nystatin (MYCOSTATIN) powder Apply 1 application to affected area three times daily. - Aspirin 81 mg ORAL Tab Take 1 tablet by mouth once daily. Take with food. Problem List As Of Date 05/10/2024 Noted Resolved Chronic bilateral low back pain without sciatic* Impaired fasting glucose [R73.01] 09/29/2015 Obesity, unspecified [E66.9] 02/07/2018 Other hyperlipidemia [E78.49] BENIGN HYPERTENSION [I10] Asthma [J45.909] 11/24/2005 Osteoporosis [M81.0] 06/06/2007 SPRAIN OF NECK [S13.9XXA] 08/10/2007 06/24/2008 SPRAIN SHOULDER/ARM NOS [[id number]] 08/10/2007 06/24/2008 Sprain and strain of unspecified site of knee a*08/10/2007 09/14/2012 CONTUSION NOS [T14.8XXA] 08/10/2007 06/24/2008 Osteoarthrosis involving lower leg [ZWC2470] 03/25/2008 Derangement of meniscus, not elsewhere classifi*03/25/2008 09/14/2012 Vitamin D deficiency [E55.9] 07/04/2008 Skin infection [L08.9] 01/07/2010 09/14/2012 Vertigo [R42] 12/28/2010 09/14/2012 CAD (coronary artery disease) [I25.10] 11/24/2011 B12 deficiency [E53.8] 12/16/2011 09/14/2018 Special screening for malignant neoplasms, colo*03/09/2012 09/14/2012 Diverticulosis of colon (without mention of hem*03/09/2012 09/14/2012 Gastroesophageal reflux disease without esophag*03/09/2012 Diaphragmatic hernia without mention of obstruc*03/09/2012 09/14/2012 Small fiber neuropathy [G62.9] 04/03/2012 YAMILETH (obstructive sleep apnea) [G47.33] 04/17/2012 03/17/2014 Pain in limb [M79.609] 05/14/2012 09/14/2012 Cervical spondylosis with radiculopathy [M47.22]05/14/2012 09/29/2015 Primary generalized (osteo)arthritis [M15.0] 07/31/2012 09/14/2018 Hypersomnia [G47.10] 03/17/2014 09/29/2015 Chronic nonallergic rhinitis [J31.0] 03/07/2016 09/14/2018 Urge incontinence [N39.41] 08/17/2016 Dry mouth [R68.2] 08/17/2016 09/14/2018 Dizziness and giddiness [R42] 02/15/2017 Obesity, Class I, BMI 30-34.9 [E66.9] 02/07/2018 09/19/2019 Obesity, Class II, BMI 35-39.9 [E66.9] 09/19/2019 Adjustment disorder with mixed anxiety and depr*09/19/2019 Adjustment disorder with depressed mood [F43.21]10/23/2019 10/01/2020 Takotsubo cardiomyopathy [I51.81] 03/25/2021 05/31/2023 Tremor [R25.1] 11/25/2021 05/31/2023 Unsteady gait [R26.81] 11/25/2021 Neck pain [M54.2] 06/02/2022 05/31/2023 Pain in thoracic spine [M54.6] 06/02/2022 05/31/2023 Parkinson's disease [G20.A1] 04/06/2022 Pain of upper abdomen [R10.10] 02/13/2023 05/31/2023 Weight loss, non-intentional [R63.4] 02/13/2023 Dysphagia [R13.10] 02/13/2023 VHD (valvular (more content not included)... Normal [facility] Cardiology Visit Reporton Cardiology Visit Report [facility] [address] [place], [place] [address] OFFICE VISIT Date of Service: 04/16/24 MR#: [id number] Acct: [id number] Name: BREANNA PHELPS Rep #: [id number] : 1940 Provider: CARLA cruz Age/Sex: 83/F Location: [facility] Status: Signed HPI HPI History of Present Illness Details: BREANNA PHELPS, is an 83 F who presents to the office today for a cardiovascular follow up visit. She presented to [facility] on 03/25/2021 with chest discomfort, nausea and vomiting. She was admitted for a non-STEMI. She underwent an urgent heart catheterization which did not demonstrate any significant lesions but did demonstrate a decreased ejection fraction of 35%. She did have a moderate lesion in the LAD for which she underwent FFR which was 0.89 and felt to be insignificant. This was felt to be a Takotsubo. Her repeat echocardiogram in February 2022 demonstrated an ejection fraction of 65%, moderate concentric left ventricular hypertrophy and stage I diastolic dysfunction. She has been taking care of her who is legally blind and does have dementia. Her son accompanies her to the visit, and states that she is being treated for dementia as well. From a cardiac standpoint, the patient is doing well. She does use a walker to help with ambulation. She denies any palpitations, chest pain, pressure or heaviness. She denies SOB, Orthopnea, and PND. She denies any bleeding issues; no blood in urine, stool or nosebleeds. Her son does acknowledge that she sleeps a lot. He states that her Dementia medication was recently changed. She denies myalgias, or claudication. She does not have edema, or sudden weight gain. She denies dizziness, lightheadedness, syncopal or near syncopal episodes, and headaches. Intake Vital Signs 11/03/23 14:26 04/16/24 14:28 Height 5 ft 5 ft Weight: 109 lb BMI 21.2 BP 110/70 Blood Pressure Location Lt brachial Position Sitting Respiration 18 Pulse 75 Pulse Source Monitor Pulse Oximetry (%) 97 Intake Visit Reasons: 6 M FU [place] Tender Required: No Is patient in pain?: No Allergies No Known Allergies Allergy (Verified 04/16/24 14:45) Medications ???Medication ???Instructions ???Recorded ???Confirmed ???Type aspirin 81 mg tablet,delayed 81 mg PO DAILY Heart health 04/25/18 04/16/24 History release (Adult Low Dose Aspirin) acetaminophen 500 mg tablet 1,000 mg (2 x 500 mg) PO Q6H PRN 04/16/21 04/16/24 Rx PRN Pain Score 1-10 #0 tabs polyethylene glycol 3350 17 17 g PO DAILY PRN constipation 07/21/21 04/16/24 History gram/dose oral powder (Miralax) duloxetine 30 mg capsule,delayed 30 mg PO DAILY 02/01/22 04/16/24 History release carvedilol 12.5 mg tablet 12.5 mg PO BID BP 08/26/22 04/16/24 History oxybutynin chloride 15 mg 15 mg PO DAILY 08/26/22 04/16/24 History tablet,extended release 24 hr nitroglycerin 0.4 mg sublingual 0.4 mg sublingual Q5-15M Heart #25 08/29/22 04/16/24 Rx tablet tabs multivitamin 1 tab PO DAILY 04/07/23 04/16/24 History atorvastatin 40 mg tablet 40 mg PO QHS Cholestrol #90 tabs 05/08/23 04/16/24 Rx tramadol 50 mg tablet 50 mg PO Q12H 10/02/23 04/16/24 History carbidopa 25 mg-levodopa 100 mg 3 tab PO BID 04/16/24 04/16/24 History tablet donepezil 10 mg tablet 10 mg PO QDAY 04/16/24 04/16/24 History melatonin 3 mg capsule 3 mg PO HS PRN 04/16/24 04/16/24 History mirtazapine 7.5 mg tablet 7.5 mg PO QDAY 04/16/24 04/16/24 History pantoprazole 40 mg tablet,delayed 40 mg PO Q12H PRN 04/16/24 04/16/24 History release Have you fallen in the past year?: No PFSH Medical History (Reviewed 04/16/24 @ 14:44 by Leah Curtis DIRECTOR HUMAN SERVICES, DIRECTOR HUMAN SERVICES-C) Takotsubo cardiomyopathy Non-ST elevated myocardial infarction Old anterolateral myocardial infarction (11/22/11) Obesity 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 pectoris Essential (primary) hypertension Hyperlipidemia Surgical History (Reviewed 04/16/24 @ 14:44 by Leah Curtis DIRECTOR HUMAN SERVICES, DIRECTOR HUMAN SERVICES-C) History of left heart catheterization (03/25/21) History of bilateral tubal ligation History of coronary artery stent placement (11/22/11) Family History (Reviewed 04/16/24 @ 14:44 by Leah Curtis DIRECTOR HUMAN SERVICES, DIRECTOR HUMAN SERVICES-C) Mother CAD (coronary artery disease) Myocardial infarction Brother CAD (coronary artery disease) Myocardial infarction Brother Cancer Sister Heart disease Social History (Reviewed 04/16/24 @ 14:44 by Leah Curtis DIRECTOR HUMAN SERVICES, DIRECTOR HUMAN SERVICES-C) household members: spouse and family housing: house Smoking Status: Never smoker alcohol intake: never substance use type: does not use ROS Const Const: Negative for fatigue, weakness, fever(s), headache(s), chills, frequent falls, weight gain or weight loss Eyes Eyes: Negative (more content not included)... Normal [facility] 04-11-2024 CNOV Office Visit (INTMWS ) BREANNA PHELPS ([id number]) 1940 F Date Time Provider Department 04/11/24 2:40 PM JUAN J HI INTMWS During your visit today, we recorded the following information about you: Temperature Pulse Blood pressure Weight 98 degrees 84/minute 92/58 48.9 kg Juan J Hi MD 04/11/2024 4:00 PM Signed This note was created using [employer]. Subjective Breanna Phelps is a 83 year old female with spouse and son. Her blood pressure was trending down with her weight. She denied symptoms of hypotension. Neurology adjusted medication to accommodate increased somnolence. Pain was stable. Review of Systems Constitutional: Positive for activity change, appetite change and unexpected weight change. HENT: Positive for trouble swallowing. Respiratory: Negative for shortness of breath. Cardiovascular: Negative for chest pain and palpitations. Gastrointestinal: Negative for nausea and vomiting. Musculoskeletal: Positive for arthralgias, back pain and gait problem. Neurological: Positive for tremors, speech difficulty and weakness. 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 donepezil (ARICEPT) 5 mg tablet Take 1 tablet by mouth daily at bedtime. carvedilol (COREG) 12.5 mg tablet Take 1 tablet by mouth two times a day. DULoxetine (CYMBALTA) 60 mg capsule Take 1 capsule by mouth once daily. Diaper,Brief, Adult,Disposable (DISPOSABLE BRIEF) Medium pull up brief, 4 per day Incontinence Pad, Liner, Disp pads Two per day Underpads pads Washable underpad Underpads pads Disposable Food Supplement, Lactose-Free (PROTEIN NUTRITIONAL SHAKE) liqd Take 237 mL by mouth three times a day with meals. traMADol (ULTRAM) 50 mg tablet Take 1 tablet by mouth two times a day as needed for pain for up to 90 days. For back pain. Mirtazapine (REMERON) 7.5 mg tablet Take 1 tablet by mouth daily at bedtime. melatonin 3 mg tablet Take 1 tablet by mouth daily at bedtime. nitroglycerin sublingual (NITROQUICK) 0.4 mg SL tablet Dissolve 1 tablet under the tongue every 5 minutes as needed for chest pain. (Patient taking differently: Dissolve 0.4 mg under the tongue every 5 minutes as needed for chest pain. Do not take more than 3 doses in 15 minutes) sucralfate (CARAFATE) 100 mg/mL susp Take 10 mL by mouth every 6 hours. atorvastatin (LIPITOR) 40 mg tablet Take 1 tablet by mouth once daily. oxybutynin ER (DITROPAN XL) 15 mg 24 hr Extended Rel Tab Take 1 tablet by mouth once daily. acetaminophen (TYLENOL) 500 mg tablet Take 1 tablet by mouth twice daily. folic acid/multivit-min/lute in (CENTRUM SILVER ORAL) Take by mouth once daily. nystatin (MYCOSTATIN) powder Apply 1 application to affected area three times daily. (Patient taking differently: Apply 1 application to affected area three times a day. under breasts) Aspirin 81 mg ORAL Tab Take 1 tablet by mouth once daily. Take with food. No current facility-administered medications for this visit. Objective BP 92/58 (BP Site: Left Arm, BP Position: Sitting, BP Cuff Size: Regular Adult) Pulse 84 Temp 36.7 ?C (98 ?F) (Temporal) Wt 48.9 kg (107 lb 12.9 oz) BMI 23.33 kg/m? Physical Exam Constitutional: Appearance: She is underweight. Cardiovascular: Rate and Rhythm: Normal rate and regular rhythm. Heart sounds: No murmur heard. No gallop. Pulmonary: Breath sounds: Normal breath sounds. Musculoskeletal: Right lower le+ Pitting Edema present. Left lower le+ Pitting Edema present. Neurological: General: No focal deficit present. Mental Status: Mental status is at baseline. Motor: Weakness present. Gait: Gait abnormal. Comments: Rollator. Labs not yet done. Assessment and Plan 1. Weight loss, non-intentional - ICD9: 783.21, ICD10: R63.4 (primary diagnosis) Failure to thrive. - CONSULT TO PALLIATIVE CARE 2. Chronic bilateral low back pain without sciatica - ICD9: 724.2, 338.29, ICD10: M54.50, G89.29 Stable. - TRAMADOL 50 MG TABLET 3. Dysphagia, unspecified type - ICD9: 787.20, ICD10: R13.10 Stable. - CONSULT TO PALLIATIVE CARE 4. Parkinson's disease, unspecified whether dyskinesia present, u (more content not included)... Normal [facility] CNOVon 03-18-2024 CNOV Office Visit (NEMOWS ) BREANNA PHELPS ([id number]) 1940 F Date Time Provider Department 03/18/24 1:00 PM FERNANDO GALARZA JR During your visit today, we recorded the following information about you: Pulse Respiration Blood pressure Weight 86/minute 16/minute 108/67 50.3 kg Fernando Galarza Jr., MD 03/24/2024 10:17 PM Signed NEW PATIENT (CONSULT) HISTORY AND PHYSICAL EXAM PRIMARY CARE PHYSICIAN: Juan J Hi MD REASON FOR CONSULT: Patient is in fact follow up REFERRING PHYSICIAN: No ref. provider found CHIEF COMPLAINT: Follow up HISTORY OF PRESENT ILLNESS: Breanna Phelps is a 83 year old female, BMI 23.98 kg/m2 with a PMH significant for and per prior note of 10/09/23: 1. Parkinson's disease, unspecified whether dyskinesia present, unspecified whether manifestations fluctuate (HCC) - ICD9: 332.0, ICD10: G20.A1 (primary diagnosis) Agree with prior evaluations that patient does have both symptoms and exam findings to support the dx of PD. However, patient has not been taking medications (Sinemet) in a regular manner, to know its true impact on disease. Currently taking Sinemet dose of 1.5 tabs about 6 hours apart and thus, taking most of med while sleeping during the night. Also uncertain if tolerating Sinemet 1.5 tabs of 25/100mg as sleeping during the day. Will attempt to lower dose of Sinemet 25/100mg to 1 tablet but have her take doses 4 hours apart with first dose about Noon when she usually wakes. Thus, will be taking at Noon, 4PM and 8PM with usual bedtime of about MN. May increase dose again in the future or add CR dosing at night, but would like to first see reponse to regular dosing. 2. Cognitive decline - ICD9: 294.9, ICD10: R41.89 3. Dementia associated with Parkinson's disease (HCC) - ICD9: 332.0, 294.10, ICD10: G20.A1, F02.80 Patient with obvious cognitive deficits on MOCA as above and subjective history supporting a progressive decline in cognition as well. Likely Dementia secondary to PD with known history. However, no recent metabolic workup and thus will check the following for reversible causes: - VITAMIN B12 BLOOD - TSH BLD - T4 FREE/FREE THYROX In addition, with no recent imaging, feel appropriate to get CT brain to evaluate for other intracranial causes including NPH given PD symptoms. Patient cannot lie flat but should still be able to image brain with some degree of head elevation. She would not be able to get MRI brain. In addition, given history and high suspicion for neurodegenerative process, will start on Namenda 5mg daily and increase to 5mg BID after 1 week. SE and ADRs d/w pt and her son who agrees with plan. 4. RBD (REM behavioral disorder) - ICD9: 327.42, ICD10: G47.52 Concern for significant injury - already with both shoulder and ankle injuries due to falls from bed as above. Will start on melatonin 3mg at bedtime and further increase dose as needed for persistence of symptoms and consider use of benzo if absolutely needed. SE and ADRs d/w pt and son. Explained to son means of safe guarding bedroom to avoid possible injuries secondary to RBD. Pt did see Conner ROACH during interim and per note: 1. Parkinson's disease, unspecified whether dyskinesia present, unspecified whether manifestations fluctuate (HCC) - ICD9: 332.0, ICD10: G20.A1 (primary diagnosis) 2. Cognitive decline - ICD9: 294.9, ICD10: R41.89 3. Dementia associated with Parkinson's disease (HCC) - ICD9: 332.0, 294.10, ICD10: G20.A1, F02.80 Patient was started on Namenda at last appointment, shortly after starting his medication, son noted that she started hallucinating, had roughly 10-12 episodes of this since starting Namenda. After it was stopped, she only had 1 or 2 episodes. Son reports that she starts reaching for things that are not present the patient states that she sees something so she wishes for it but she cannot grab it. Patient's memory stable from previous appointment, unfortunately were not able to perform MoCA today due to time constraints. Patient did have 1 fall since last appointment, fell out of bed while she was sleeping. Son does note that she has a tendency to act out her dreams at night, kicking and punching and reaching for things. Notes that many of her episodes of retching occur at nighttime when she is awake from 1 to 2 AM. No other falls, no dizziness or lightheadedness. Did adjust Sinemet doses as well at last appointment and patient doing well with this with 1 tablet 3 times a day 4 hours apart, starting at noon when she typically eats breakfast. However, patient is starting to have some nausea throughout the day, is unsure if it is related to medications or other GI issues that she has had in the past. Will discuss possibly starting carbidopa with Dr. Galarza to avoid nausea with this medication. Patient and family would be amenable to this (more content not included)... [facility] ([id number]) 1940 F Date Time Provider Department 03/01/24 JUAN J HI INTFREDDY During your visit today, we recorded the following information about you: Cheyenne Degroot LPN 03/01/2024 2:32 PM Signed Patient son Italia spoke to [employer] and they said faxed to the office asking for nutritional and calorie amount patient is needing daily for the protein shakes. He is not certain what day they faxed request to the office. Please advise Juan J Hi MD 03/05/2024 7:14 PM Signed Has this been addressed? Sahil Salazar MA 03/07/2024 9:43 AM Signed Form located and give to PCP for review- Please review recommended documentation - will fax to [facility] once completed. Valerie Dalila Reyna 03/08/2024 1:07 PM Signed Patient's son, Italia, said someone from Dr. Hi's office called him today. He is assuming it is about the issue below. Please call him back at [phone]. Juan J Hi MD 03/09/2024 11:33 AM Signed Form completed. Allergies As of Date: 03/01/2024 Noted Allergy Reaction ELINA INHIBITORS 01/03/2012 3 - Cough Date Reviewed: 01/11/2024 Reviewed by: Lashanda García MA - Fully Assessed Reason for Visit: fax from [employer] [Other] Prescriptions as of 03/11/2024 - carvedilol (COREG) 12.5 mg tablet Take 1 tablet by mouth two times a day. - DULoxetine (CYMBALTA) 60 mg capsule Take 1 capsule by mouth once daily. - Diaper,Brief, Adult,Disposable (DISPOSABLE BRIEF) Medium pull up brief, 4 per day - Incontinence Pad, Liner, Disp pads Two per day - Underpads pads Washable underpad - Underpads pads Disposable - Food Supplement, Lactose-Free (PROTEIN NUTRITIONAL SHAKE) liqd Take 237 mL by mouth three times a day with meals. - traMADol (ULTRAM) 50 mg tablet Take 1 tablet by mouth two times a day as needed for pain for up to 90 days. For back pain. - Mirtazapine (REMERON) 7.5 mg tablet Take 1 tablet by mouth daily at bedtime. - carbidopa-levodopa (SINEMET 25-100) 25-100 mg per tablet Take 1 tablet by mouth three times a day. (First dose when wake at noon and then all other dose 4 hours apart - Noon, 4PM and 8PM). - melatonin 3 mg tablet Take 1 tablet by mouth daily at bedtime. - nitroglycerin sublingual (NITROQUICK) 0.4 mg SL tablet Dissolve 1 tablet under the tongue every 5 minutes as needed for chest pain. - sucralfate (CARAFATE) 100 mg/mL susp Take 10 mL by mouth every 6 hours. - atorvastatin (LIPITOR) 40 mg tablet Take 1 tablet by mouth once daily. - oxybutynin ER (DITROPAN XL) 15 mg 24 hr Extended Rel Tab Take 1 tablet by mouth once daily. - acetaminophen (TYLENOL) 500 mg tablet Take 1 tablet by mouth twice daily. - folic acid/multivit-min/lute in (CENTRUM SILVER ORAL) Take by mouth once daily. - nystatin (MYCOSTATIN) powder Apply 1 application to affected area three times daily. - Aspirin 81 mg ORAL Tab Take 1 tablet by mouth once daily. Take with food. Problem List As Of Date 03/01/2024 Noted Resolved Chronic bilateral low back pain without sciatic* Impaired fasting glucose [R73.01] 09/29/2015 Obesity, unspecified [E66.9] 02/07/2018 Other hyperlipidemia [E78.49] BENIGN HYPERTENSION [I10] Asthma [J45.909] 11/24/2005 Osteoporosis [M81.0] 06/06/2007 SPRAIN OF NECK [S13.9XXA] 08/10/2007 06/24/2008 SPRAIN SHOULDER/ARM NOS [[id number]] 08/10/2007 06/24/2008 Sprain and strain of unspecified site of knee a*08/10/2007 09/14/2012 CONTUSION NOS [T14.8XXA] 08/10/2007 06/24/2008 Osteoarthrosis involving lower leg [[id number]] 03/25/2008 Derangement of meniscus, not elsewhere classifi*03/25/2008 09/14/2012 Vitamin D deficiency [E55.9] 07/04/2008 Skin infection [L08.9] 01/07/2010 09/14/2012 Vertigo [R42] 12/28/2010 09/14/2012 CAD (coronary artery disease) [I25.10] 11/24/2011 B12 deficiency [E53.8] 12/16/2011 09/14/2018 Special screening for malignant neoplasms, colo*03/09/2012 09/14/2012 Diverticulosis of colon (without mention of hem*03/09/2012 09/14/2012 Gastroesophageal reflux disease without esophag*03/09/2012 Diaphragmatic hernia without mention of obstruc*03/09/2012 09/14/2012 Small fiber neuropathy [G62.9] 04/03/2012 YAMILETH (obstructive sleep apnea) [G47.33] 04/17/2012 03/17/2014 Pain in limb [M79.609] 05/14/2012 09/14/2012 Cervical spondylosis with radiculopathy [M47.22]05/14/2012 09/29/2015 Primary generalized (osteo)arthritis [M15.0] 07/31/2012 09/14/2018 Hypersomnia [G47.10] 03/17/2014 09/29/2015 Chronic nonallergic rhinitis [J31.0] 03/07/2016 09/14/2018 Urge incontinence [N39.41] 08/17/2016 Dry mouth [R68.2] 08/17/2016 09/14/2018 Dizziness and giddiness [R42] 02/15/2017 Obesity, Class I, BMI 30-34.9 [E66.9] 02/07/2018 09/19/2019 Obesity, Class II, BMI 35-39.9 [E66.9] 09/19/2019 Adjustment disorder with mixed anxiety and depr*09/19/2019 Adjustment disorder with depressed (more content not included)... Normal [facility] Absolute lymphocyte countOrd ered By: Leah Curtis on 11-03-2023 Lymphocytes Auto (Unsp spec) [#/Vol] 1.31 10*3/uL 0.83-4.51 [facility] Automated lymphocyte count a s percentage of total leukocytesOrdered By: Leah Curtis on 11-03-2023 Lymphocytes/100 WBC Auto (Unsp spec) 19.7 % 19-41 [facility] Basophil percentageOrdered B y: Leah Curtis on 11-03-2023 Basophils/100 WBC (Bld) 0.5 % 0-1 [facility] Chloride [Moles/Vol] 106 mmol/L 98-107 [facility] Eosinophils/100 WBC (Bld) 5.1 % 0-5 [facility] Glucose [Mass/Vol] 118 mg/dL 74-106 [facility] Comment on above: Fasting Glucose resu lt from 100 to 125 mg/dL suggests IMPAIRED HOMEOSTASIS per A.D.A. criteria. Hemoglobin (Bld) [Mass/Vol] 13.9 g/dL 12.0-15.0 [facility] Monocytes/100 WBC (Bld) 6.2 % 0-10 [facility] Neutrophils (Bld) [#/Vol] 4.6 10*3/uL 2.0-7.7 [facility] Neutrophils/100 WBC (Bld) 68.3 % 47-70 [facility] Potassium [Moles/Vol] 4.5 mmol/L 3.5-5.1 [facility] Sodium [Moles/Vol] 140 mmol/L 136-145 [facility] WBC (Bld) [#/Vol] 6.7 10*3/uL 4.4-11.0 [facility] Determination of erythrocyte mean corpuscular volume (MCV)Ordered By: Leah Curtis on 11-03-2023 MCV (RBC) [Entitic vol] 101.7 fL 81-99 [facility] Erythrocyte distribution wid th ratioOrdered By: Leah Curtis on 11-03-2023 Erythrocyte distribution width (RBC) [Ratio] 11.8 % 11.6-14.6 [facility] Erythrocyte distribution wid th standard deviationOrdered By: Leah Curtis on 11-03-2023 Erythrocyte distribution width (RBC) [Entitic vol] 44.1 fL 35.1-43.9 [facility] Hematocrit Auto (Bld) [Volum e fraction]Ordered By: Leah Curtis on 11-03-2023 Hematocrit (Bld) [Volume fraction] 42.9 % 37-47 [facility] Immature granulocytes/100 WB C Auto (Bld)Ordered By: Leah Curtis on 11-03-2023 Immature granulocytes/100 WBC (Bld) 0.200 % 0.0-0.9 [facility] Comment on above: IG% - Immature Granu locytes (promyelocytes, myelocytes and metamyelocytes) > 1% indicates that a LEFT SHIFT is Present. Laboratory - Chemistry and C hemistry - challengeOrdered By: Leah Curtis on 11-03-2023 CO2 [Moles/Vol] 30.0 mmol/L 21.0-32.0 [facility] Natriuretic peptide B (Bld) [Mass/Vol] 38.5 pg/mL 0-100 [facility] Urea nitrogen/Creatinine [Mass ratio] 49.2 mg/mg 10-20 [facility] Laboratory - Hematology and Cell countsOrdered By: Leah Curtis on 11-03-2023 MCH (RBC) [Entitic mass] 32.9 pg 27.0-32.0 [facility] MCHC (RBC) [Mass/Vol] 32.4 g/dL 32-36 [facility] Nucleated RBC/100 WBC (Bld) [Ratio] 0 % 0-5 [facility] Platelet mean volume (Bld) [Entitic vol] 10.7 fL 6.2-12.0 [facility] Platelets (Bld) [#/Vol] 226 10*3/uL 150-450 [facility] No Panel InformationOrdered By: Leah Curtis on 11-03-2023 Estimated GFR (MDRD) Amer 112 mL/min >60 [facility] Comment on above: GFR Calc Estimated GFR (MDRD) Non-Af Amer 93 mL/min >60 [facility] Comment on above: Non- GFR Calc RBC Auto (Bld) [#/Vol]Ordere d By: Leah Curtis on 11-03-2023 RBC (Bld) [#/Vol] 4.22 10*6/uL 4.2-5.4 [facility] Serum or plasma calcium shawn urement (mass/volume)Ordered By: Leah Curtis on 11-03-2023 Calcium [Mass/Vol] 9.5 mg/dL 8.5-10.1 [facility] Serum or plasma creatinine m easurement (mass/volume)Ordered By: Leah Curtis on 11-03-2023 Creatinine [Mass/Vol] 0.65 mg/dL 0.55-1.02 [facility] Comment on above: The validity of the calculated GFR & GFRAA in patients over 70 years has not been determined. Clinical correlation is essential. Serum or plasma thyroid stim ulating hormone (TSH) measurement (units/volume)Ordered By: Leah Curtis on 11-03-2023 TSH Qn 2.76 uIU/mL 0.358-3.74 [facility] Serum or plasma urea nitroge n measurement (mass/volume)Ordered By: Leah Curtis on 11-03-2023 Urea nitrogen [Mass/Vol] 32 mg/dL 7-18 [facility] Thin prep Papanicolaou smear with manual screeningOrdered By: Leah Curtis on 11-03-2023 Thin prep Papanicolaou smear with manual screening 4 5-15 [facility] CT Head WO contraston 2023 [facility] XR Chest PA and Lateralon IMPRESSION: No acute radiographic abnormality. Emergency Veterinary Technician: SALLY Transcribe Date/Time: Aug 15 2023 6:49P Dictated by : ITALIA GOULD MD This examination was interpreted and the report reviewed and electronically signed by: ITALIA GOULD MD on Aug 15 2023 6:50PM [facility] DIVISION OF RADIOLOGY * * *Final Report* * * DATE OF EXAM: Aug 15 2023 6:35PM WOX 5291 - XR CHEST 2V FRONTAL/LAT / PROCEDURE REASON: URI, acute * * * * Physician Interpretation * * * * EXAMINATION: CHEST RADIOGRAPH (2 VIEW FRONTAL & LATERAL) CLINICAL HISTORY: URI, acute MQ: XC2_6 EXAM DATE/TIME: 08/15/2023 6:35 PM COMPARISON: 09/14/2022 RESULT: Lines, tubes, and devices: None. Lungs and pleura: No consolidation. No lung mass. No pleural effusion. No pneumothorax. Stable mild right hemidiaphragm elevation. Cardiomediastinal silhouette: Normal cardiomediastinal silhouette. Bones and soft tissues: Stable exaggerated kyphosis without significant compression deformity DIVISION OF RADIOLOGY Provider, [facility] - 08/15/2023 * * *Final Report* * * DATE OF EXAM: Aug 15 2023 6:35PM WOX 5291 - XR CHEST 2V FRONTAL/LAT / PROCEDURE REASON: URI, acute * * * * Physician Interpretation * * * * EXAMINATION: CHEST RADIOGRAPH (2 VIEW FRONTAL & LATERAL) CLINICAL HISTORY: URI, acute MQ: XC2_6 EXAM DATE/TIME: 08/15/2023 6:35 PM COMPARISON: 09/14/2022 RESULT: Lines, tubes, and devices: None. Lungs and pleura: No consolidation. No lung mass. No pleural effusion. No pneumothorax. Stable mild right hemidiaphragm elevation. Cardiomediastinal silhouette: Normal cardiomediastinal silhouette. Bones and soft tissues: Stable exaggerated kyphosis without significant compression deformity IMPRESSION IMPRESSION: No acute radiographic abnormality. Emergency Veterinary Technician: SALLY Transcribe Date/Time: Aug 15 2023 6:49P Dictated by : ITALIA GOULD MD This examination was interpreted and the report reviewed and electronically signed by: ITALIA GOULD MD on Aug 15 2023 6:50PM EST [facility] Radiology Study observation (narrative) [facility] XR Chest PA and LateralOrder ed By: Ccf Provider on 08-15-2023 [facility] No Panel Informationon 11-15 [facility] XR Chest PA and Lateralon IMPRESSION: No acute radiographic abnormality. Emergency Veterinary Technician: PSCB Transcribe Date/Time: Sep 15 2022 4:55P Dictated by : DALLAS BARRON MD This examination was interpreted and the report reviewed and electronically signed by: DALLAS BARRON MD on Sep 15 2022 4:56PM [facility] DIVISION OF RADIOLOGY * * *Final Report* * * DATE OF EXAM: Sep 14 2022 6:07PM WOX 5291 - XR CHEST 2V FRONTAL/LAT / PROCEDURE REASON: Chronic cough * * * * Physician Interpretation * * * * EXAMINATION: CHEST RADIOGRAPH (2 VIEW FRONTAL & LATERAL) CLINICAL HISTORY: Chronic cough MQ: XC2_6 EXAM DATE/TIME: 09/14/2022 6:07 PM COMPARISON: 06/28/2011 RESULT: Lines, tubes, and devices: None. Lungs and pleura: Shallow lung volumes. Moderate eventration of the right hemidiaphragm. No consolidation. No lung mass. No pleural effusion. No pneumothorax. Cardiomediastinal silhouette: Normal cardiomediastinal silhouette. Bones and soft tissues: Degenerative changes are present within the thoracic spine. Increased kyphosis of the thoracic spine. DIVISION OF RADIOLOGY Provider, [facility] - 09/15/2022 * * *Final Report* * * DATE OF EXAM: Sep 14 2022 6:07PM WOX 5291 - XR CHEST 2V FRONTAL/LAT / PROCEDURE REASON: Chronic cough * * * * Physician Interpretation * * * * EXAMINATION: CHEST RADIOGRAPH (2 VIEW FRONTAL & LATERAL) CLINICAL HISTORY: Chronic cough MQ: XC2_6 EXAM DATE/TIME: 09/14/2022 6:07 PM COMPARISON: 06/28/2011 RESULT: Lines, tubes, and devices: None. Lungs and pleura: Shallow lung volumes. Moderate eventration of the right hemidiaphragm. No consolidation. No lung mass. No pleural effusion. No pneumothorax. Cardiomediastinal silhouette: Normal cardiomediastinal silhouette. Bones and soft tissues: Degenerative changes are present within the thoracic spine. Increased kyphosis of the thoracic spine. IMPRESSION IMPRESSION: No acute radiographic abnormality. Emergency Veterinary Technician: SALLY Transcribe Date/Time: Sep 15 2022 4:55P Dictated by : DALLAS BARRON MD This examination was interpreted and the report reviewed and electronically signed by: DALLAS BARRON MD on Sep 15 2022 4:56PM EST [facility] XR Chest PA and LateralOrder ed By: Ccf Provider on 09-15-2022 [facility] XR Chest PA and Lateralon Radiology Study observation (narrative) [facility] ALLIED HEALTHon 05-04-2022 ALLIED HEALTH HNO ID: [id number] Author: RT Sandra(Rosalinda) Service: ? Author Type: Muck Farmer Type: Allied Health Filed: 05/04/2022 4:06 PM Note Text: Radiology Service Progress Note PATIENT NAME: Breanna Phelps DATE OF SERVICE: May 04, 2022 TIME: 4:06 PM PATIENT IDENTITY VERIFICATION COMPLETED USING TWO (2) IDENTIFIERS: Name and Date of confirmed by patient verbally. FALL SCREENING: Has the patient had 2 falls in the last year or 1 fall with injury or currently using an Ambulatory Assistive Device (Walker, Cane, Wheelchair, Crutches, etc.)? No PATIENT GENDER DATA: Female. status: : No status: NO. PATIENT RELEVANT IMPLANT DATA REVIEWED: Not Applicable RADIOLOGY DEPARTMENT: General X-ray: Exam(s) Completed: Spine X-Ray(s): Cervical AP / LAT , Thoracic, and Lumbar AP / LAT / L5-S1 PERIPHERAL IV DATA: Not applicable SIGNED BY: RT Sandra(R) May 04, 2022 4:06 PM [facility] XR CERVICAL 2V AP/LATon 04-15 XR CERVICAL 2V AP/LAT * * *Final Report* * * DATE OF EXAM: May 04 2022 4:05PM LALY 5308 - XR CERVICAL 2V AP/LAT / PROCEDURE REASON: M54.2-Neck pain * * * * Physician Interpretation * * * * EXAMINATION: XR CERVICAL 2V AP/LAT, XR LUMBAR 2V AP/LAT, XR THORACIC 2V AP/LAT PATIENT/TECHNOLOGIST PROVIDED HISTORY: pain CLINICAL INFORMATION: 81 years old Female with Neck pain TECHNIQUE: XR CERVICAL 2V AP/LAT, XR LUMBAR 2V AP/LAT, XR THORACIC 2V AP/LAT Laterality: NOT APPLICABLE Number of different views (projections): 2 views of the cervical spine, 2 views of the thoracic spine 2 views of the lumbar spine. COMPARISON: Cervical spine radiographs 05/03/2012 RESULT: Cervical spine: Counting reference: Craniocervical junction. Anatomic Variants: None. Post-op assessment: N/A Alignment: Lateral image is obtained with patient's neck in extension. No listhesis identified. Vertebral bodies: Vertebral body heights are maintained. Osteopenia/osteoporosi s. Spine articulations: Mild disc space narrowing C5-C6 with mild scattered endplate degenerative changes. Multilevel facet degenerative changes. Thoracic Spine: Counting reference: 12 paired ribs with vertebral body articulating with first set of ribs designated as T1. Post-op assessment: None. Alignment: Alignment is satisfactory on the frontal images. On the lateral images patient is significantly flexed in part related to kyphosis. Vertebral bodies: Osteopenia/osteoporosi s. No significant vertebral body height loss. Spine articulations: Diffuse idiopathic skeletal hyperostosis. Multilevel degenerative disc disease with disc height loss, disc calcifications and endplate degenerative changes. Lumbar spine: Counting reference: Lumbosacral junction. For the purposes of this report, L4-5 is considered the level of the iliac crest and there are 5 lumbar-type vertebrae. Anatomic Variants: None. Post-op assessment: N/A Alignment: Alignment is satisfactory. Vertebral bodies: Moderate L4 compression deformity. Osteopenia/osteoporosi s. Spine articulations: Mild-moderate disc space narrowing L3-L4. Mild disc space narrowing elsewhere in the lumbar spine with mild endplate degenerative changes. Lower lumbar facet degenerative changes. IMPRESSION: Osteopenia/osteoporosi s and moderate L4 compression deformity. Diffuse idiopathic skeletal hyperostosis. Degenerative changes as described. Emergency Veterinary Technician: SALLY Transcribe Date/Time: May 05 2022 3:00P Dictated by : SHARYN LYNNE DO This examination was interpreted and the report reviewed and electronically signed by: SHARYN LYNNE DO on May 05 2022 3:13PM EST [id number] [facility] XR LUMBAR 2V AP/LATon 2021 XR LUMBAR 2V AP/LAT * * *Final Report* * * DATE OF EXAM: May 04 2022 4:05PM LALY 5229 - XR LUMBAR 2V AP/LAT / PROCEDURE REASON: multiple diagnoses * * * * Physician Interpretation * * * * EXAMINATION: XR CERVICAL 2V AP/LAT, XR LUMBAR 2V AP/LAT, XR THORACIC 2V AP/LAT PATIENT/TECHNOLOGIST PROVIDED HISTORY: pain CLINICAL INFORMATION: 81 years old Female with Neck pain TECHNIQUE: XR CERVICAL 2V AP/LAT, XR LUMBAR 2V AP/LAT, XR THORACIC 2V AP/LAT Laterality: NOT APPLICABLE Number of different views (projections): 2 views of the cervical spine, 2 views of the thoracic spine 2 views of the lumbar spine. COMPARISON: Cervical spine radiographs 05/03/2012 RESULT: Cervical spine: Counting reference: Craniocervical junction. Anatomic Variants: None. Post-op assessment: N/A Alignment: Lateral image is obtained with patient's neck in extension. No listhesis identified. Vertebral bodies: Vertebral body heights are maintained. Osteopenia/osteoporosi s. Spine articulations: Mild disc space narrowing C5-C6 with mild scattered endplate degenerative changes. Multilevel facet degenerative changes. Thoracic Spine: Counting reference: 12 paired ribs with vertebral body articulating with first set of ribs designated as T1. Post-op assessment: None. Alignment: Alignment is satisfactory on the frontal images. On the lateral images patient is significantly flexed in part related to kyphosis. Vertebral bodies: Osteopenia/osteoporosi s. No significant vertebral body height loss. Spine articulations: Diffuse idiopathic skeletal hyperostosis. Multilevel degenerative disc disease with disc height loss, disc calcifications and endplate degenerative changes. Lumbar spine: Counting reference: Lumbosacral junction. For the purposes of this report, L4-5 is considered the level of the iliac crest and there are 5 lumbar-type vertebrae. Anatomic Variants: None. Post-op assessment: N/A Alignment: Alignment is satisfactory. Vertebral bodies: Moderate L4 compression deformity. Osteopenia/osteoporosi s. Spine articulations: Mild-moderate disc space narrowing L3-L4. Mild disc space narrowing elsewhere in the lumbar spine with mild endplate degenerative changes. Lower lumbar facet degenerative changes. IMPRESSION: Osteopenia/osteoporosi s and moderate L4 compression deformity. Diffuse idiopathic skeletal hyperostosis. Degenerative changes as described. Emergency Veterinary Technician: SALLY Transcribe Date/Time: May 05 2022 3:00P Dictated by : SHARYN LYNNE DO This examination was interpreted and the report reviewed and electronically signed by: SHARYN LYNNE DO on May 05 2022 3:13PM EST [id number] [facility] XR THORACIC 2V AP/LATon 04-15 XR THORACIC 2V AP/LAT * * *Final Report* * * DATE OF EXAM: May 04 2022 4:05PM LALY 5262 - XR THORACIC 2V AP/LAT / PROCEDURE REASON: M54.6-Thoracic spine pain * * * * Physician Interpretation * * * * EXAMINATION: XR CERVICAL 2V AP/LAT, XR LUMBAR 2V AP/LAT, XR THORACIC 2V AP/LAT PATIENT/TECHNOLOGIST PROVIDED HISTORY: pain CLINICAL INFORMATION: 81 years old Female with Neck pain TECHNIQUE: XR CERVICAL 2V AP/LAT, XR LUMBAR 2V AP/LAT, XR THORACIC 2V AP/LAT Laterality: NOT APPLICABLE Number of different views (projections): 2 views of the cervical spine, 2 views of the thoracic spine 2 views of the lumbar spine. COMPARISON: Cervical spine radiographs 05/03/2012 RESULT: Cervical spine: Counting reference: Craniocervical junction. Anatomic Variants: None. Post-op assessment: N/A Alignment: Lateral image is obtained with patient's neck in extension. No listhesis identified. Vertebral bodies: Vertebral body heights are maintained. Osteopenia/osteoporosi s. Spine articulations: Mild disc space narrowing C5-C6 with mild scattered endplate degenerative changes. Multilevel facet degenerative changes. Thoracic Spine: Counting reference: 12 paired ribs with vertebral body articulating with first set of ribs designated as T1. Post-op assessment: None. Alignment: Alignment is satisfactory on the frontal images. On the lateral images patient is significantly flexed in part related to kyphosis. Vertebral bodies: Osteopenia/osteoporosi s. No significant vertebral body height loss. Spine articulations: Diffuse idiopathic skeletal hyperostosis. Multilevel degenerative disc disease with disc height loss, disc calcifications and endplate degenerative changes. Lumbar spine: Counting reference: Lumbosacral junction. For the purposes of this report, L4-5 is considered the level of the iliac crest and there are 5 lumbar-type vertebrae. Anatomic Variants: None. Post-op assessment: N/A Alignment: Alignment is satisfactory. Vertebral bodies: Moderate L4 compression deformity. Osteopenia/osteoporosi s. Spine articulations: Mild-moderate disc space narrowing L3-L4. Mild disc space narrowing elsewhere in the lumbar spine with mild endplate degenerative changes. Lower lumbar facet degenerative changes. IMPRESSION: Osteopenia/osteoporosi s and moderate L4 compression deformity. Diffuse idiopathic skeletal hyperostosis. Degenerative changes as described. Emergency Veterinary Technician: SALLY Transcribe Date/Time: May 05 2022 3:00P Dictated by : SHARYN LYNNE DO This examination was interpreted and the report reviewed and electronically signed by: SHARYN LYNNE DO on May 05 2022 3:13PM EST [id number] [facility] STEREO BX BREAST RTon [facility] STEREO BX BREAST RT * * *Final Report* * * * * * SEE BOTTOM OF REPORT FOR ADDENDED TEXT * * * DATE OF EXAM: Feb 17 2022 2:35PM AA [id number] - [facility] STEREO BX BREAST RT / PROCEDURE REASON: Microcalcifications of the breast * * * * Physician Interpretation * * * * THIS REPORT HAS BEEN AMENDED. #[id number] - [facility] STEREO BX BREAST RT STEREOTACTIC GUIDED BIOPSY RIGHT BREAST USING VACUUM DEVICE WITH MARKING DEVICE INSERTED AND POST DIGITAL MAMMOGRAPHIC IMAGIN02/17/2022 HISTORY: Microcalcifications Of The Breast\ Patient presents for a stereotactic guided biopsy of the right breast. PATIENT CONSENT: A time-out was performed immediately prior to procedure start with the radiology team, correctly identifying the patient name, date of , procedure, anatomy (including marking of site and side), patient position, relevant diagnostic and radiology test results, safety precautions, and procedure-specific equipment needs. The procedure was explained to the patient including the risks, benefits and alternatives. Medications and allergies were also reviewed. The risks, including but not limited to infection and bleeding, were reviewed by the performing physician and the patient agreed to undergo the procedure. The radiologist and technologist were present throughout the entire procedure. Audible Time Out: 1345 Procedure Start: 1346 Procedure End: 1410 PROCEDURE: Correlation is made to exams dated: 01/19/2022 mammogram and 11/30/2021 mammogram - [facility]. A stereotactic guided biopsy was performed for the area of calcifications located in the right breast upper outer aspect middle depth. This was described on the previous mammography report. The skin was prepped in the usual manner. Local anesthetic was administered to the access site. The abnormality was approached from the craniocaudal aspect. A 9 gauge biopsy needle was placed adjacent to the abnormality under computer guidance and confirmatory stereotactic mammography images were obtained to document needle placement. Once the needle was documented to be in the correct location, six specimens were obtained using the [employer] system. The patient received additional local anesthetic during the procedure. A hourglass clip was inserted into the biopsy cavity. Post procedure digital mammographic imaging demonstrates the location device at the targeted area and complete removal of the calcifications. The specimens were sent to the laboratory for pathological analysis. IMPRESSION: STEREOTACTIC GUIDED BIOPSY Stereotactic guided biopsy of the area of calcifications in the right breast upper outer aspect middle depth was successful with no apparent post procedure complications. Two of six specimens have micro calcifications. Waiting for pathology results. A final report will be issued when these become available. Jeovany jaime/vane:02/17/2022 16:43:26 Corporate Development Intern(s): RT Suresh(R)(M), [employer] Multiple national specialty organizations have released breast cancer screening guidelines for women at average risk for developing breast cancer - guidelines that are based on both evidence and opinion, yet differ on when to start and how often to screen for breast cancer. With representation from Breast Imaging, Internal Medicine, Women's Health, Family Medicine, and Medical/Surgical Oncology, the [facility] has carefully reviewed the data and reached the following consensus: 1) All women should engage in shared decision-making with their providers to decide when to start and how often to screen; 2) All women should have the opportunity to start screening mammography at age 40; 3) For women ages 45-55, we recommend annual screening mammograms; 4) For women ages 55 and over, we support both the transition from an annual to a biennial interval if this aligns more with patient's values and preferences, or continuation with annual screening; 5) All women should discuss with their providers when to stop screening mammograms. AMENDMENT: 02/21/2022 Jeovany Samuel M.D. Pathology shows benign breast parenchyma with fibroadenomatoid changes. Microacalcifications identified within fibroadenomatoid changes. This is concordant with imaging. Patient may return to routine annual screening. Emergency Veterinary Technician: Vane Transcribe Date/Time: Feb 17 2022 1:09P Dictated by : JEOVANY SAMUEL MD This examination was interpreted and the report reviewed and electronically signed by: JEOVANY SAMUEL MD on Feb 17 2022 4:43PM EST This document has been addended by: JEOVANY SAMUEL MD on Feb 21 2022 2:15PM EST [id number] Normal [facility] SURGICAL PATHOLOGYon [address] [facility] Comment on above: Order Comment: Speci men Type: TISSUE SPECIMEN Ordering Facility: [facility] Address: [address] [place] [id number] Result Comment: Surg ica Pathology Report Case: [id number] Authorizing Provider: Jeovany Samuel MD, MD Collected: 02/17/2022 01:50 PM Ordering Location: [facility] Received: 02/18/2022 08:08 AM [facility] Pathologist: Daniel Murrya MD Specimen: BREAST CORE BIOPSY RIGHT, calcs 12:00, steven 1:50pm in formalin 1:52pm Petite clip Performed By: #### S #### [facility] CLIA [id number] [address] CLINICAL HISTORY Suspicious right breast calcifications Normal [facility] Comment on above: Order Comment: Speci men Type: TISSUE SPECIMEN Ordering Facility: [facility] Address: [address] [place] [phone] Performed By: #### S #### [facility] CLIA [id number] [address] FINAL DIAGNOSIS Normal [facility] Comment on above: Order Comment: Speci men Type: TISSUE SPECIMEN Ordering Facility: [facility] Address: [address] [place] [address] Result Comment: Chano Rich reast, right, 12:00 petite clip, biopsy: - Benign breast parenchyma with fibroadenomatoid changes. - Microcalcifications identified within fibroadenomatoid changes. Performed By: #### S #### [facility] CLIA [id number] [address] [place] [address] FINAL PERFORMING LAB Normal [facility] Comment on above: Order Comment: Speci men Type: TISSUE SPECIMEN Ordering Facility: [facility] Address: [address] [place] [address] Result Comment: Diag nostic interpretation performed at [facility], [address] [place] [address] CLIA# [id number] Jewellery Designer: Jesus Ash M.D. Performed By: #### S #### [facility] CLIA [id number] [address] [place] [address] [facility] Comment on above: Order Comment: Speci men Type: TISSUE SPECIMEN Ordering Facility: [facility] Address: [address] [place] [address] Result Comment: Chano Rich REAST CORE BIOPSY RIGHT. Received in formalin labeled as right breast calcifications 12:00, (petite clip) are multiple irregular shaped segments of yellow fibrofatty tissue aggregating to 2.5 x 2.0 x 0.5 cm. The specimen is totally submitted in formalin in 1 cassette. The specimen was collected at 1:50 PM on 02/17/2022. On the same day, the specimen was placed in formalin at 1:52 PM. Gross examination performed at [facility], [address] [place] [address] CLIA#[id number] [facility] February 18, 2022 11:04 AM Performed By: #### S #### [facility] CLIA [id number] [address] [place] [address] [facility]on 01-20-20 [facility] Lab Report: Lipid Profileon 07-11-2017 Cholesterol 139 mg/dL Invalid Interpretation Code 200 [facility] Work Phone: [phone] HDL Cholesterol 54 mg/dL Invalid Interpretation Code [facility] Work Phone: [phone] LDL Cholesterol 72 mg/dL Invalid Interpretation Code 0-130 [facility] Work Phone: [phone] Triglyceride 65 mg/dL Invalid Interpretation Code [facility] Work Phone: [phone] very low density lipoproteins 13 mg/dL Invalid Interpretation Code 5-40 [facility] Work Phone: [phone]) Lab Report: Liver Profileon 07-11-2017 Alanine aminotransferase (ALT) 26 U/L Invalid Interpretation Code 12-78 [facility] Work Phone: [phone] Albumin 3.6 g/dL Invalid Interpretation Code 3.4-5.0 [facility] Phone: [phone] Alkaline phosphatase (ALP) 62 U/L Invalid Interpretation Code 45-117 [facility] Work Phone: [phone] Aspartate aminotransferase (AST) 27 U/L Invalid Interpretation Code 15-37 [facility] Phone: [phone] Bilirubin (direct) 0.15 mg/dL Invalid Interpretation Code 0.00-0.30 [facility] Work Phone: [phone] Bilirubin (total) 0.50 mg/dL Invalid Interpretation Code 0.20-1.00 [facility] Phone: [phone] Globulin 3.8 g/dL Invalid Interpretation Code 2.2-4.2 [facility] Work Phone: [phone] Protein 7.4 g/dL Invalid Interpretation Code 6.4-8.2 [facility] Phone: [phone] Office Visiton 07-11-2017 Documentation of current medications (procedure) Done Invalid Interpretation Code [facility] Work Phone: [phone] Fall risk assessment No Invalid Interpretation Code [facility] Phone: [phone]) Lab Report: Lipid Profileon 12-15-2016 Cholesterol 113 mg/dL Invalid Interpretation Code 200 [facility] Work Phone: [phone] HDL Cholesterol 41 mg/dL Invalid Interpretation Code [facility] Work Phone: [phone] LDL Cholesterol 54 mg/dL Invalid Interpretation Code 0-130 [facility] Work Phone: [phone] Triglyceride 88 mg/dL Invalid Interpretation Code [facility] Work Phone: [phone] very low density lipoproteins 18 mg/dL Invalid Interpretation Code 5-40 [facility] Phone: [phone]) Lab Report: Liver Profileon 12-15-2016 Alanine aminotransferase (ALT) 25 U/L Invalid Interpretation Code 12-78 [facility] Work Phone: [phone] Albumin 4.0 g/dL Invalid Interpretation Code 3.4-5.0 [facility] Phone: [phone] Alkaline phosphatase (ALP) 55 U/L Invalid Interpretation Code 45-117 [facility] Phone: [phone] Aspartate aminotransferase (AST) 27 U/L Invalid Interpretation Code 15-37 [facility] Phone: [phone] Bilirubin (direct) 0.20 mg/dL Invalid Interpretation Code 0.00-0.30 [facility] Work Phone: [phone] Bilirubin (total) 1.10 mg/dL High 0.20-1.00 [facility] Phone: [phone] Globulin 3.4 g/dL Invalid Interpretation Code 2.3-3.5 [facility] Phone: [phone] Protein 7.4 g/dL Invalid Interpretation Code 6.4-8.2 [facility] Phone: [phone]) Office Visiton 06-24-2016 Dietary management education, guidance, and counseling (procedure) yes Invalid Interpretation Code [facility] Phone: [phone] Tobacco use CPHS Never smoker Invalid Interpretation Code [facility] Phone: [phone]) Clinical Lists Update: Prelo wire bender 06-17-2016 Left ventricular Ejection fraction 40-45 Invalid Interpretation Code [facility] Phone: [phone] Office Visit: [facility] 12-19-19 15 cardiac risk group C Invalid Interpretation Code [facility] Phone: [phone] General cardiovascular disease 10Y risk [#] Bronson.Agatha'Jef N/A Invalid Interpretation Code [facility] Work Phone: [phone] Tobacco smoking status NHIS Never Invalid Interpretation Code [facility] Work Phone: [phone] Lab Report: LIVERon 06-25-20 14 ALK 90 U/L Normal 50-136 [facility] Work Phone: [phone] EKG Report: [facility] ECG Obse rvationson 10-14-2013 EKG QRS axis -10 deg Invalid Interpretation Code [facility] Work Phone: [phone] Interpretation Sinus Rhythm WITHIN NORMAL LIMITS Invalid Interpretation Code [facility] Work Phone: [phone] P Largo 28 deg Invalid Interpretation Code [facility] Work Phone: [phone] [place] Interval 202 ms Invalid Interpretation Code [facility] Work Phone: [phone] Pulse (Heart Rate) 72 /min Invalid Interpretation Code [facility] Work Phone: [phone] QRS Duration 104 ms Invalid Interpretation Code [facility] Work Phone: [phone] QT Interval new path ms Invalid Interpretation Code [facility] Work Phone: [phone] T Largo 20 deg Invalid Interpretation Code [facility] Work Phone: [phone] Lab Report: CBCon 04-08-2013 Erythrocytes (RBC) 4.46 10*6/uL Normal 4.2-5.[address] [facility] Work Phone: [phone] Hematocrit (HCT) 41.7 % Normal 37-47 [facility] Work Phone: [phone] Hemoglobin mass conc (Bld) 14.1 g/dL Normal 12.0-15.0 [facility] Work Phone: [phone] Platelets 303 10*3/mm3 Normal 150-450 [facility] Work Phone: [phone] WBC (Leukocytes) 7.0 10*3/uL Normal 4.4-11.0 [facility] Work Phone: [phone] Lab Report: GLUon 04-08-2013 Glucose mass conc 100 mg/dL Normal 70-110 [facility] Work Phone: [phone] Lab Report: TSHon 04-08-2013 Thyroid stimulating hormone (TSH) 4.03 u[iU]/mL High 0.358-3.74 [facility] Work Phone: [phone] Replaced Document: Lisa LEI Observationson 01-10-2012 Pulse (Heart Rate) 410 ms Invalid Interpretation Code [facility] Work Phone: [phone] Lab Reporton 11-23-2011 Cholesterol to HDL Ratio 6.0 {ratio} Invalid Interpretation Code [facility] Work Phone: [phone] Anion gap 7 mmol/L Invalid Interpretation Code [facility] Work Phone: [phone] Calcium 9.2 mg/dL Invalid Interpretation Code [facility] Work Phone: [phone] Chloride 106 mmol/L Invalid Interpretation Code [facility] Work Phone: [phone] CO2 26 mmol/L Invalid Interpretation Code [facility] Work Phone: [phone] Creatinine 0.55 mg/dL Invalid Interpretation Code [facility] Work Phone: [phone] Potassium molar conc 4.0 mmol/L Invalid Interpretation Code [facility] Work Phone: [phone] Sodium 140 mmol/L Invalid Interpretation Code [facility] Work Phone: [phone] Urea nitrogen 13 mg/dL Invalid Interpretation Code [facility] Work Phone: [phone] Lab Reporton 11-22-2011 basophils as percent of blood leukocytes, manual count 1.6 % Invalid Interpretation Code [facility] Work Phone: [phone] eosinophils as percent of blood leukocytes, manual count 6.0 % Invalid Interpretation Code [facility] Work Phone: [phone] Lymphocytes/100 leukocytes 34.2 % Invalid Interpretation Code [facility] Work Phone: [phone] MCH 40.3 pg Invalid Interpretation Code [facility] Work Phone: [phone] MCV 119.2 fL Invalid Interpretation Code [facility] Work Phone: [phone] Monocytes/100 leukocytes 6.1 % Invalid Interpretation Code [facility] Work Phone: [phone] neutrophils, band form as percent of blood leukocytes, manual count 52.1 % Invalid Interpretation Code [facility] Work Phone: [phone] Vital Signs Date Time Vital Sign Value Performing Clinician Facility 04-11-2024 15:11-0400 Diastolic blood pressure 58 mm[Hg] Juan J Hi MD Work Phone: [facility] 04-11-2024 15:11-0400 Systolic blood pressure 92 mm[Hg] Juan J Hi MD Work Phone: [facility] 04-11-2024 14:42-0400 Body mass index (BMI) [Ratio] 23.33 kg/m2 Juan J Hi MD Work Phone: [facility] 04-11-2024 14:42-0400 Body temperature 98.01 [degF] Juan J Hi MD Work Phone: [facility] 04-11-2024 14:42-0400 Body weight 48.9 kg Juan J Hi MD Work Phone: [facility] 04-11-2024 14:42-0400 Heart rate 84 /min Juan J Hi MD Work Phone: [facility] 03-18-2024 12:59-0400 Body mass index (BMI) [Ratio] 23.98 kg/m2 Fernando Galarza Jr., MD Work Phone: [facility] 03-18-2024 12:59-0400 Body weight 50.26 kg Fernando Galarza Jr., MD Work Phone: [facility] 03-18-2024 12:59-0400 Diastolic blood pressure 67 mm[Hg] Fernando Galarza Jr., MD Work Phone: [facility] 03-18-2024 12:59-0400 Heart rate 86 /min Fernando Galarza Jr., MD Work Phone: [facility] 03-18-2024 12:59-0400 Respiratory rate 16 /min Fernando Galarza Jr., MD Work Phone: [facility] 03-18-2024 12:59-0400 SaO2% (BldA) [Mass fraction] 100 % Fernando Galarza Jr., MD Work Phone: [facility] 03-18-2024 12:59-0400 Systolic blood pressure 108 mm[Hg] Fernando Galarza Jr., MD Work Phone: [facility] 01-11-2024 17:38-0400 Body height 144.8 cm Juan J Hi MD Work Phone: [facility] 01-11-2024 17:38-0400 Body mass index (BMI) [Ratio] 25.86 kg/m2 Juan J Hi MD Work Phone: [facility] 01-11-2024 17:38-0400 Body temperature 98.49 [degF] Juan J Hi MD Work Phone: [facility] 01-11-2024 17:38-0400 Body weight 54.2 kg Juan J Hi MD Work Phone: [facility] 01-11-2024 17:38-0400 Diastolic blood pressure 65 mm[Hg] Juan J Hi MD Work Phone: [facility] 01-11-2024 17:38-0400 Heart rate 80 /min Juan J Hi MD Work Phone: [facility] 01-11-2024 17:38-0400 Respiratory rate 16 /min Juan J Hi MD Work Phone: [facility] 01-11-2024 17:38-0400 SaO2% (BldA) [Mass fraction] 97 % Juan J Hi MD Work Phone: [facility] 01-11-2024 17:38-0400 Systolic blood pressure 102 mm[Hg] Juan J Hi MD Work Phone: [facility] 01-03-2024 12:37-0400 Body temperature 98.1 [degF] Agustina Orosco CCC-SURGICAL SUPPLIES STERILIZER Work Phone: [facility] 01-03-2024 12:37-0400 Diastolic blood pressure 72 mm[Hg] Merry Gale CCC-SURGICAL SUPPLIES STERILIZER Work Phone: [facility] 01-03-2024 12:37-0400 Heart rate 85 /min Merry Gale CCC-SURGICAL SUPPLIES STERILIZER Work Phone: [facility] 01-03-2024 12:37-0400 Respiratory rate 18 /min Merry Gale CCC-SURGICAL SUPPLIES STERILIZER Work Phone: [facility] 01-03-2024 12:37-0400 SaO2% (BldA) [Mass fraction] 95 % Merry Gale CCC-SURGICAL SUPPLIES STERILIZER Work Phone: [facility] 01-03-2024 12:37-0400 Systolic blood pressure 130 mm[Hg] Merry Gale CCC-SURGICAL SUPPLIES STERILIZER Work Phone: [facility] 12-21-2023 12:54-0400 Body temperature 98.49 [degF] Merry Gale CCC-SURGICAL SUPPLIES STERILIZER Work Phone: [facility] 12-21-2023 12:54-0400 Diastolic blood pressure 72 mm[Hg] Merry Gale CCC-SURGICAL SUPPLIES STERILIZER Work Phone: [facility] 12-21-2023 12:54-0400 Heart rate 83 /min Merry Gale CCC-SURGICAL SUPPLIES STERILIZER Work Phone: [facility] 12-21-2023 12:54-0400 Respiratory rate 18 /min Merry Gale CCC-SURGICAL SUPPLIES STERILIZER Work Phone: [facility] 12-21-2023 12:54-0400 SaO2% (BldA) [Mass fraction] 95 % Merry Gale CCC-SURGICAL SUPPLIES STERILIZER Work Phone: [facility] 12-21-2023 12:54-0400 Systolic blood pressure 138 mm[Hg] Merry Gale CCC-SURGICAL SUPPLIES STERILIZER Work Phone: [facility] 12-11-2023 12:15-0400 Body temperature 98.8 [degF] Merry Gale CCC-SURGICAL SUPPLIES STERILIZER Work Phone: [facility] 12-11-2023 12:15-0400 Diastolic blood pressure 80 mm[Hg] Merry Gale CCC-SURGICAL SUPPLIES STERILIZER Work Phone: [facility] 12-11-2023 12:15-0400 Heart rate 81 /min Merry Gale CCC-SURGICAL SUPPLIES STERILIZER Work Phone: [facility] 12-11-2023 12:15-0400 Respiratory rate 18 /min Merry Gale CCC-SURGICAL SUPPLIES STERILIZER Work Phone: [facility] 12-11-2023 12:15-0400 SaO2% (BldA) [Mass fraction] 98 % Merry Gale CCC-SURGICAL SUPPLIES STERILIZER Work Phone: [facility] 12-11-2023 12:15-0400 Systolic blood pressure 125 mm[Hg] Merry Gale CCC-SURGICAL SUPPLIES STERILIZER Work Phone: [facility] 12-04-2023 15:25-0400 Body temperature 98.2 [degF] Janet Valencia PT Work Phone: [facility] 12-04-2023 15:25-0400 Diastolic blood pressure 80 mm[Hg] Janet Martinez-Vanessa PT Work Phone: [facility] 12-04-2023 15:25-0400 Heart rate 79 /min Janet Valencia PT Work Phone: [facility] 12-04-2023 15:25-0400 Respiratory rate 18 /min Janet Valencia PT Work Phone: [facility] 12-04-2023 15:25-0400 SaO2% (BldA) [Mass fraction] 98 % Janet Valencia PT Work Phone: [facility] 12-04-2023 15:25-0400 Systolic blood pressure 140 mm[Hg] Janet Martinez-Vanessa PT Work Phone: [facility] 12-01-2023 13:12-0400 Body temperature 97.59 [degF] Anastasia Mackey PATHOLOGY TEACHER Work Phone: [facility] 12-01-2023 13:12-0400 Diastolic blood pressure 78 mm[Hg] Anastasia Key PATHOLOGY TEACHER Work Phone: [facility] 12-01-2023 13:12-0400 Heart rate 77 /min Anastasia Key PATHOLOGY TEACHER Work Phone: [facility] 12-01-2023 13:12-0400 Respiratory rate 18 /min Anastasia Key PATHOLOGY TEACHER Work Phone: [facility] 12-01-2023 13:12-0400 SaO2% (BldA) [Mass fraction] 98 % Anastasia Key PATHOLOGY TEACHER Work Phone: [facility] 12-01-2023 13:12-0400 Systolic blood pressure 124 mm[Hg] Anastasia Key PATHOLOGY TEACHER Work Phone: [facility] 11-29-2023 14:44-0400 Body temperature 97.7 [degF] Anastasia Key PATHOLOGY TEACHER Work Phone: [facility] 11-29-2023 14:44-0400 Diastolic blood pressure 76 mm[Hg] Anastasia Key PATHOLOGY TEACHER Work Phone: [facility] 11-29-2023 14:44-0400 Heart rate 76 /min Anastasia Key PATHOLOGY TEACHER Work Phone: [facility] 11-29-2023 14:44-0400 Respiratory rate 18 /min Anastasia Key PATHOLOGY TEACHER Work Phone: [facility] 11-29-2023 14:44-0400 SaO2% (BldA) [Mass fraction] 96 % Anastasia Key PATHOLOGY TEACHER Work Phone: [facility] 11-29-2023 14:44-0400 Systolic blood pressure 118 mm[Hg] Anastasia Key PATHOLOGY TEACHER Work Phone: [facility] 11-27-2023 12:18-0400 Body temperature 99 [degF] Merry Gale CCC-SURGICAL SUPPLIES STERILIZER Work Phone: [facility] 11-27-2023 12:18-0400 Diastolic blood pressure 78 mm[Hg] Merry Gale CCC-SURGICAL SUPPLIES STERILIZER Work Phone: [facility] 11-27-2023 12:18-0400 Heart rate 72 /min Agustina Orosco CCC-SURGICAL SUPPLIES STERILIZER Work Phone: [facility] 11-27-2023 12:18-0400 Respiratory rate 18 /min Agustina Orosco CCC-SURGICAL SUPPLIES STERILIZER Work Phone: [facility] 11-27-2023 12:18-0400 SaO2% (BldA) [Mass fraction] 95 % Agustina Orosco CCC-SURGICAL SUPPLIES STERILIZER Work Phone: [facility] 11-27-2023 12:18-0400 Systolic blood pressure 138 mm[Hg] Agustina Orosco CCC-SURGICAL SUPPLIES STERILIZER Work Phone: [facility] 11-24-2023 12:00-0400 Body temperature 98.8 [degF] Anastasia Key PATHOLOGY TEACHER Work Phone: [facility] 11-24-2023 12:00-0400 Diastolic blood pressure 78 mm[Hg] Anastasia Key PATHOLOGY TEACHER Work Phone: [facility] 11-24-2023 12:00-0400 Heart rate 74 /min Anastasia Key PATHOLOGY TEACHER Work Phone: [facility] 11-24-2023 12:00-0400 Respiratory rate 18 /min Anastasia Key PATHOLOGY TEACHER Work Phone: [facility] 11-24-2023 12:00-0400 SaO2% (BldA) [Mass fraction] 97 % Anastasia Key PATHOLOGY TEACHER Work Phone: [facility] 11-24-2023 12:00-0400 Systolic blood pressure 128 mm[Hg] Anastasia Key PATHOLOGY TEACHER Work Phone: [facility] 11-22-2023 11:41-0400 Body temperature 98.8 [degF] Anastasia Key PATHOLOGY TEACHER Work Phone: [facility] 11-22-2023 11:41-0400 Diastolic blood pressure 78 mm[Hg] Anastasia Key PATHOLOGY TEACHER Work Phone: [facility] 11-22-2023 11:41-0400 Heart rate 79 /min Anastasia Key PATHOLOGY TEACHER Work Phone: [facility] 11-22-2023 11:41-0400 Respiratory rate 18 /min Anastasia Key PATHOLOGY TEACHER Work Phone: [facility] 11-22-2023 11:41-0400 SaO2% (BldA) [Mass fraction] 97 % Anastasia Key PATHOLOGY TEACHER Work Phone: [facility] 11-22-2023 11:41-0400 Systolic blood pressure 128 mm[Hg] Anastasia Key PATHOLOGY TEACHER Work Phone: [facility] 11-16-2023 13:05-0400 Body temperature 97.7 [degF] Anastasia Key PATHOLOGY TEACHER Work Phone: [facility] 11-16-2023 13:05-0400 Diastolic blood pressure 78 mm[Hg] Anastasia Key PATHOLOGY TEACHER Work Phone: [facility] 11-16-2023 13:05-0400 Heart rate 79 /min Anastasia Key PATHOLOGY TEACHER Work Phone: [facility] 11-16-2023 13:05-0400 Respiratory rate 18 /min Anastasia Key PATHOLOGY TEACHER Work Phone: [facility] 11-16-2023 13:05-0400 SaO2% (BldA) [Mass fraction] 96 % Anastasia Key PATHOLOGY TEACHER Work Phone: [facility] 11-16-2023 13:05-0400 Systolic blood pressure 128 mm[Hg] Anastasia Key PATHOLOGY TEACHER Work Phone: [facility] 11-15-2023 13:09-0400 Body temperature 98.71 [degF] Merry Gale CCC-SURGICAL SUPPLIES STERILIZER Work Phone: [facility] 11-15-2023 13:09-0400 Diastolic blood pressure 60 mm[Hg] Merry Gale CCC-SURGICAL SUPPLIES STERILIZER Work Phone: [facility] 11-15-2023 13:09-0400 Heart rate 75 /min Merry Gale CCC-SURGICAL SUPPLIES STERILIZER Work Phone: [facility] 11-15-2023 13:09-0400 Respiratory rate 18 /min Merkatt Fletchere CCC-SURGICAL SUPPLIES STERILIZER Work Phone: [facility] 11-15-2023 13:09-0400 SaO2% (BldA) [Mass fraction] 96 % Agustina Fletchere CCC-SURGICAL SUPPLIES STERILIZER Work Phone: [facility] 11-15-2023 13:09-0400 Systolic blood pressure 123 mm[Hg] Agustina Fletchere CCC-SURGICAL SUPPLIES STERILIZER Work Phone: [facility] 11-14-2023 13:45-0400 Heart rate 77 /min Anastasia Key PATHOLOGY TEACHER Work Phone: [facility] 11-14-2023 13:45-0400 SaO2% (BldA) [Mass fraction] 96 % Anastasia Key PATHOLOGY TEACHER Work Phone: [facility] 11-14-2023 13:24-0400 Body temperature 98.4 [degF] Anastasia Key PATHOLOGY TEACHER Work Phone: [facility] 11-14-2023 13:24-0400 Diastolic blood pressure 68 mm[Hg] Anastasia Key PATHOLOGY TEACHER Work Phone: [facility] 11-14-2023 13:24-0400 Respiratory rate 18 /min Anastasia Key PATHOLOGY TEACHER Work Phone: [facility] 11-14-2023 13:24-0400 Systolic blood pressure 110 mm[Hg] Anastasia Key PATHOLOGY TEACHER Work Phone: [facility] 11-07-2023 13:48-0400 Body weight 55.34 kg Aiyana Garcia PA-C Work Phone: [facility] 11-07-2023 13:48-0400 Diastolic blood pressure 68 mm[Hg] Aiyana Valdezer PA-C Work Phone: [facility] 11-07-2023 13:48-0400 Heart rate 90 /min Aiyana Valdezer PA-C Work Phone: [facility] 11-07-2023 13:48-0400 Respiratory rate 16 /min Aiyanalinda Valdezdusty PA-C Work Phone: [facility] 11-07-2023 13:48-0400 SaO2% (BldA) [Mass fraction] 97 % Aiyana Garcia PA-C Work Phone: [facility] 11-07-2023 13:48-0400 Systolic blood pressure 118 mm[Hg] Aiyanalinda Valdezdusty PA-C Work Phone: [facility] 11-03-2023 14:26-0400 Body height 152.[address] Juan J Hi Work Phone: [facility] 11-03-2023 14:25-0400 Body mass index (BMI) [Ratio] 24 kg/m2 Dr. Juan J Hi Work Phone: [facility] 11-03-2023 14:25-0400 Body weight 55.[address] Juan J Hi Work Phone: [facility] 11-03-2023 14:25-0400 Diastolic blood pressure 55 mm[Hg] Dr. Juan J Hi Work Phone: [facility] 11-03-2023 14:25-0400 Heart rate 73 /min Dr. Juan J Hi Work Phone: [facility] 11-03-2023 14:25-0400 Respiratory rate 18 /min Dr. Juan J Hi Work Phone: [facility] 11-03-2023 14:25-0400 SaO2% (BldA) [Mass fraction] 95 % Dr. Juan J Hi Work Phone: [facility] 11-03-2023 14:25-0400 Systolic blood pressure 104 mm[Hg] Dr. Juna J Hi Work Phone: [facility] 10-12-2023 16:44-0500 Body weight 57.61 kg Juan J Hi MD Work Phone: [facility] 10-02-2023 16:21-0500 Body temperature 97.7 [degF] [facility] 10-02-2023 16:21-0500 Diastolic blood pressure 56 mm[Hg] [facility] 10-02-2023 16:21-0500 Heart rate 77 /min [facility] 10-02-2023 16:21-0500 Respiratory rate 14 /min [facility] 10-02-2023 16:21-0500 SaO2% (BldA) [Mass fraction] 95 % [facility] 10-02-2023 16:21-0500 Systolic blood pressure 108 mm[Hg] [facility] 10-02-2023 14:49-0500 Body mass index (BMI) [Ratio] 24.5 kg/m2 [facility] 10-02-2023 14:49-0500 Body weight 57 kg [facility] 10-02-2023 14:40-0500 Body height 152.4 cm [facility] 09-14-2023 17:42-0500 Body temperature 98.01 [degF] Jua nJ Hi MD Work Phone: [facility] 09-14-2023 17:42-0500 Body weight 59.42 kg Juan J Hi MD Work Phone: [facility] 09-14-2023 17:42-0500 Diastolic blood pressure 51 mm[Hg] Juan J Hi MD Work Phone: [facility] 09-14-2023 17:42-0500 Heart rate 85 /min Juan J Hi MD Work Phone: [facility] 09-14-2023 17:42-0500 Systolic blood pressure 86 mm[Hg] Juan J Hi MD Work Phone: [facility] 05-01-2023 14:30-0400 Body height 149.9 cm Pacc 1 Work Phone: [facility] 05-01-2023 14:30-0400 Body temperature 98.1 [degF] Pacc 1 Work Phone: [facility] 05-01-2023 14:30-0400 Body weight 62.6 kg Pacc 1 Work Phone: [facility] 05-01-2023 14:30-0400 Diastolic blood pressure 58 mm[Hg] Pacc 1 Work Phone: [facility] 05-01-2023 14:30-0400 Heart rate 79 /min Pacc 1 Work Phone: [facility] 05-01-2023 14:30-0400 Respiratory rate 14 /min Pacc 1 Work Phone: [facility] 05-01-2023 14:30-0400 SaO2% (BldA) [Mass fraction] 95 % Pacc 1 Work Phone: [facility] 05-01-2023 14:30-0400 Systolic blood pressure 120 mm[Hg] Pacc 1 Work Phone: [facility] 04-18-2023 15:15-0400 Body height 149.9 cm Patsy Marquez PA-C Work Phone: [facility] 04-18-2023 15:15-0400 Body weight 63.96 kg Patsy Marquez PA-C Work Phone: [facility] 04-18-2023 15:15-0400 Diastolic blood pressure 72 mm[Hg] Patsy Marquez PA-C Work Phone: [facility] [facility] 04-18-2023 15:15-0400 Heart rate 77 /min Patsy Marquez PA-C Work Phone: [facility] 04-18-2023 15:15-0400 Systolic blood pressure 124 mm[Hg] Patsy Marquez PA-C Work Phone: [facility] 02-13-2023 16:30-0400 Body weight 65.77 kg Juan J Hi MD Work Phone: [facility] 02-13-2023 16:30-0400 Diastolic blood pressure 66 mm[Hg] Juan J Hi MD Work Phone: [facility] 02-13-2023 16:30-0400 Heart rate 72 /min Juan J Hi MD Work Phone: [facility] 02-13-2023 16:30-0400 Respiratory rate 16 /min Juan J Hi MD Work Phone: [facility] 02-13-2023 16:30-0400 Systolic blood pressure 126 mm[Hg] Juan J Hi MD Work Phone: [facility] 11-14-2022 16:40-0400 Body height 151.4 cm Juan J Hi MD Work Phone: [facility] 11-14-2022 16:40-0400 Body weight 67.36 kg Juan J Hi MD Work Phone: [facility] 11-14-2022 16:40-0400 Diastolic blood pressure 68 mm[Hg] Juan J Hi MD Work Phone: [facility] 11-14-2022 16:40-0400 Heart rate 80 /min Juan J Hi MD Work Phone: [facility] 11-14-2022 16:40-0400 Respiratory rate 16 /min JuanJ Hi MD Work Phone: [facility] 11-14-2022 16:40-0400 Systolic blood pressure 130 mm[Hg] Juan J Hi MD Work Phone: [facility] 08-26-2022 11:09-0500 Body height 152.[address] Juan J Hi Work Phone: [facility] 08-26-2022 11:09-0500 Body mass index (BMI) [Ratio] 29.7 kg/m2 Dr. Juan J Hi Work Phone: [facility] 08-26-2022 11:09-0500 Body weight 68.[address] Juan J Hi Work Phone: [facility] 08-26-2022 11:09-0500 Diastolic blood pressure 74 mm[Hg] Dr. Juan J Hi Work Phone: [facility] 08-26-2022 11:09-0500 Heart rate 76 /min Dr. Juan J Hi Work Phone: [facility] 08-26-2022 11:09-0500 Respiratory rate 16 /min Dr. Juan J Hi Work Phone: [facility] 08-26-2022 11:09-0500 Systolic blood pressure 134 mm[Hg] Dr. Juan J Hi Work Phone: [facility] 08-01-2022 14:14-0500 Body height 152.4 cm Kirsty Cr MD Work Phone: [facility] 08-01-2022 14:14-0500 Body weight 68.04 kg Kristy Cr MD Work Phone: [facility] 08-01-2022 14:14-0500 Diastolic blood pressure 84 mm[Hg] Kristy Cr MD Work Phone: [facility] 08-01-2022 14:14-0500 Heart rate 80 /min Kristy Cr MD Work Phone: [facility] 08-01-2022 14:14-0500 SaO2% (BldA) [Mass fraction] 97 % Kristy Cr MD Work Phone: [facility] 08-01-2022 14:14-0500 Systolic blood pressure 166 mm[Hg] Kristy Cr MD Work Phone: [facility] 06-02-2022 15:00-0400 Diastolic blood pressure 74 mm[Hg] Renato Golias PT Work Phone: [facility] 06-02-2022 15:00-0400 Systolic blood pressure 126 mm[Hg] Renato Golias PT Work Phone: [facility] 05-09-2022 11:49-0400 Body temperature 99.1 [degF] Teofilo Tom MD Work Phone: [facility] 05-09-2022 11:49-0400 Body weight 68.95 kg Teofilo Tom MD Work Phone: [facility] 05-09-2022 11:49-0400 Diastolic blood pressure 64 mm[Hg] Teofilo Tom MD Work Phone: [facility] 05-09-2022 11:49-0400 Heart rate 88 /min Teofilo Tom MD Work Phone: [facility] 05-09-2022 11:49-0400 Respiratory rate 16 /min Teofilo Tom MD Work Phone: [facility] 05-09-2022 11:49-0400 SaO2% (BldA) [Mass fraction] 93 % Teofilo Tom MD Work Phone: [facility] 05-09-2022 11:49-0400 Systolic blood pressure 122 mm[Hg] Teofilo Tom MD Work Phone: [facility] 05-04-2022 13:44-0400 Body height 152.4 cm Piero Mittal PA-C Work Phone: [facility] 05-04-2022 13:44-0400 Body weight 69.08 kg iPero Mittal PA-C Work Phone: [facility] 05-04-2022 13:44-0400 Diastolic blood pressure 60 mm[Hg] Piero Mittal PA-C Work Phone: [facility] 05-04-2022 13:44-0400 Heart rate 78 /min Piero Mittal PA-C Work Phone: [facility] 05-04-2022 13:44-0400 SaO2% (BldA) [Mass fraction] 96 % Piero Mittal PA-C Work Phone: [facility] 05-04-2022 13:44-0400 Systolic blood pressure 127 mm[Hg] Piero Mittal PA-C Work Phone: [facility] 04-06-2022 09:01-0400 Body height 152.4 cm Kristy Cr MD Work Phone: [facility] 04-06-2022 09:010400 Body weight 70.4 kg Kristy Cr MD Work Phone: [facility] 04-06-2022 09:01-0400 Diastolic blood pressure 58 mm[Hg] Kristy Cr MD Work Phone: [facility] 04-06-2022 09:01-0400 Heart rate 73 /min Kristy Cr MD Work Phone: [facility] 04-06-2022 09:01-0400 SaO2% (BldA) [Mass fraction] 98 % Kristy Cr MD Work Phone: [facility] 04-06-2022 09:01-0400 Systolic blood pressure 120 mm[Hg] Kristy Cr MD Work Phone: [facility] 03-03-2022 16:19-0400 Diastolic blood pressure 75 mm[Hg] Juan J Hi MD Work Phone: [facility] 03-03-2022 16:19-0400 Heart rate 81 /min Juan J Hi MD Work Phone: [facility] 03-03-2022 16:19-0400 Systolic blood pressure 129 mm[Hg] Juan J Hi MD Work Phone: [facility] 03-03-2022 16:13-0400 Body temperature 97.59 [degF] Juan J Hi MD Work Phone: [facility] 03-03-2022 16:13-0400 Body weight 70.76 kg Juan J Hi MD Work Phone: [facility] 03-03-2022 16:13-0400 Respiratory rate 18 /min Juan J Hi MD Work Phone: [facility] 02-01-2022 09:04-0400 Body height 152.[address] Juan J Hi Work Phone: [facility] Work Phone: 02-01-2022 09:04-0400 Body mass index (BMI) [Ratio] 31.8 kg/m2 Dr. Juan J Hi Work Phone: [facility] Work Phone: 02-01-2022 09:04-0400 Body weight 73.[address] Juan J Hi Work Phone: [facility] Work Phone: 02-01-2022 09:04-0400 Diastolic blood pressure 77 mm[Hg] Dr. Juan J Hi Work Phone: [facility] Work Phone: 02-01-2022 09:04-0400 Heart rate 73 /min Dr. Juan J Hi Work Phone: [facility] Work Phone: 02-01-2022 09:04-0400 Respiratory rate 18 /min Dr. Juan J Hi Work Phone: [facility] Work Phone: 02-01-2022 09:04-0400 SaO2% (BldA) [Mass fraction] 98 % Dr. Juan J Hi Work Phone: [facility] Work Phone: 02-01-2022 09:04-0400 Systolic blood pressure 137 mm[Hg] Dr. Juan J Hi Work Phone: [facility] Work Phone: 01-21-2022 14:05-0400 Body height 162.6 cm Geovanna Carter MD Work Phone: [facility] 01-21-2022 14:05-0400 Body temperature 98.8 [degF] Geovanna Carter MD Work Phone: [facility] 01-21-2022 14:05-0400 Body weight 74.39 kg Geovanna Carter MD Work Phone: [facility] 01-21-2022 14:05-0400 Diastolic blood pressure 62 mm[Hg] Geovanna Carter MD Work Phone: [facility] 01-21-2022 14:05-0400 Heart rate 85 /min Geovanna Carter MD Work Phone: [facility] 01-21-2022 14:05-0400 SaO2% (BldA) [Mass fraction] 95 % Geovanna Carter MD Work Phone: [facility] 01-21-2022 14:05-0400 Systolic blood pressure 128 mm[Hg] Geovanna Carter MD Work Phone: [facility] 11-25-2021 19:46-0400 Diastolic blood pressure 68 mm[Hg] Juan J Hi MD Work Phone: [facility] 11-25-2021 19:46-0400 Heart rate 69 /min Juan J Hi MD Work Phone: [facility] 11-25-2021 19:46-0400 Systolic blood pressure 110 mm[Hg] Juan J Hi MD Work Phone: [facility] 11-25-2021 18:30-0400 Body height 154.9 cm Juan J Hi MD Work Phone: [facility] 11-25-2021 18:30-0400 Body temperature 97.5 [degF] Juan J Hi MD Work Phone: [facility] 11-25-2021 18:30-0400 Body weight 75.75 kg Juan J Hi MD Work Phone: [facility] 11-25-2021 18:30-0400 Respiratory rate 16 /min Juan J Hi MD Work Phone: [facility] 07-11-2017 14:06-0500 BMI (Body Mass Index) 29.83 kg/m2 [facility] Work Phone: 07-11-2017 14:06-0500 BP Diastolic 60 mm[Hg] [facility] Work Phone: 07-11-2017 14:06-0500 BP Systolic 110 mm[Hg] [facility] Work Phone: 07-11-2017 14:06-0500 Height 160.02 cm [facility] Work Phone: 07-11-2017 14:06-0500 Pulse (Heart Rate) 72 /min [facility] Work Phone: 07-11-2017 14:06-0500 Respiratory Rate 20 /min [facility] Work Phone: 07-11-2017 14:06-0500 Weight 76.39 kg [facility] [facility] Work Phone: 06-24-2016 13:37-0500 BP Diastolic 72 mm[Hg] [facility] Work Phone: 06-24-2016 13:37-0500 BP Systolic 128 mm[Hg] [facility] Work Phone: 06-24-2016 13:37-0500 BSA (Body Surface Area) 1.86 m2 [facility] Work Phone: 06-24-2016 13:37-0500 Pulse (Heart Rate) 72 /min [facility] Work Phone: Encounters Encounter Date Encounter Type Care Provider Facility Start: 02-18-2025 End: 02-18-2025 ambulatory Bonny Leon MA [facility] Start: 02-18-2025 End: 02-18-2025 Patient encounter procedure Bonny [facility] [place] Comment on above: Population Health Na vigation Outreach ([place] ) Start: 01-14-2025 End: 01-14-2025 ambulatory Bonny Leon MA [facility] Start: 01-14-2025 End: 01-14-2025 Patient encounter procedure Bonny Mnoreal [facility] [place] Comment on above: Population Health Na vigation Outreach ([place] ) Start: 12-12-2024 End: 12-12-2024 ambulatory Leah Curtis MACI Facility:[facility] Start: 05-13-2024 End: 05-13-2024 Telephone encounter Juan J Hi MD Work Phone: [facility] [place] Comment on above: hospice services Start: 05-10-2024 End: 05-13-2024 Telephone encounter Juan J Hi MD Work Phone: [facility] [place] Start: 04-29-2024 End: 04-29-2024 Refill Fernando Galarza MD Work Phone: Neurology Comment on above: Refill Request Start: 04-22-2024 End: 04-23-2024 Refill Juan J Hi MD Work Phone: [facility] [place] Comment on above: Refill Request Start: 04-16-2024 End: 04-16-2024 ambulatory Juan J Hi Facility:[facility] Start: 04-11-2024 End: 04-11-2024 ambulatory JUAN J HI Facility:[facility] Start: 04-11-2024 End: 04-11-2024 Office outpatient visit 25 minutes Juan J Hi MD Work Phone: [facility] [place] Comment on above: Weight loss, non-int entional (Primary Dx); Chronic bilateral low back pain without sciatica; Dysphagia, unspecified type; Parkinson's disease, unspecified whether dyskinesia present, unspecified whether manifestations fluctuate (HCC); Dementia associated with Parkinson's disease (HCC) Start: 03-18-2024 End: 03-18-2024 Patient encounter procedure Fernando Galarza MD Work Phone: Neurology Comment on above: Parkinson's disease, unspecified whether dyskinesia present, unspecified whether manifestations fluctuate (HCC) (Primary Dx); Dementia associated with Parkinson's disease (HCC); RBD (REM behavioral disorder); Daytime sleepiness Start: 03-18-2024 End: 03-18-2024 ambulatory FERNANDO GALARZA JR Facility:[facility] Start: 03-08-2024 Refill Juan J ivory MD Work Phone: [facility] [place] Comment on above: Refill Request Start: 03-01-2024 Telephone encounter Juan J galdamez MD Work Phone: [facility] [place] Comment on above: fax from [facility]/Dr miranda Bustillos Start: 02-19-2024 Telephone encounter Juan J galdamez MD Work Phone: [facility] [place] Comment on above: Forms Start: 02-13-2024 Refill Juan J ivory MD Work Phone: [facility] [place] Comment on above: Refill Request Start: 02-07-2024 Telephone encounter Juan J galdamez MD Work Phone: [facility] [place] Comment on above: Orders Start: 01-11-2024 End: 01-11-2024 Patient encounter procedure Juan J Hi MD Work Phone: [facility] [place] Comment on above: Medicare annual well ness visit, subsequent (Primary Dx); Chronic bilateral low back pain without sciatica; Parkinson's disease, unspecified whether dyskinesia present, unspecified whether manifestations fluctuate (HCC); Adjustment disorder with mixed anxiety and depressed mood; Urge incontinence; Osteoporosis, unspecified osteoporosis type, unspecified pathological fracture presence; Dementia associated with Parkinson's disease (HCC); Weight loss, non-intentional; 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, unspecified vessel or lesion type (HCC); Vitamin D deficiency; Need for COVID-19 vaccine Start: 01-03-2024 End: 01-03-2024 Home visit Agustina Orosco [facility]-SURGICAL [facility]PPLIES STERILIZER Work Phone: [facility] Comment on above: SURGICAL SUPPLIES STERILIZER AGENCY RADHIKA W BYRON T Start: 12-21-2023 End: 12-21-2023 Home visit Kira CABRALW Work Phone: [facility] Comment on above: TOP STITCHER CARE COORDINATIO N SURGICAL SUPPLIES STERILIZER ROUTINE Start: 12-14-2023 Telephone encounter Aiyana page PA-C Work Phone: Neurology Comment on above: Appointment Start: 12-11-2023 Non-patient / Non-visit Dr. Tonya Hi Work Phone: [facility] Work Phone: Start: 12-11-2023 End: 12-11-2023 Home visit Agustina Orosco [facility]-SURGICAL SUPPLIES STERILIZER Work Phone: [facility] Comment on above: SURGICAL SUPPLIES STERILIZER ROUTINE Start: 2023 Non-patient / Non-visit Dr. Tonya Hi Work Phone: [facility] Start: 2023 End: [address] Juan J Hi Work Phone: [facility] Work Phone: Start: 2023 End: [address] [facility]: Start: 12-07-2023 Telephone encounter Kira mccall OUTSIDE SALES PROFESSIONAL Work Phone: [facility] Comment on above: Home Care Start: 12-07-2023 End: 12-07-2023 Home visit Kira Diehl OUTSIDE SALES PROFESSIONAL Work Phone: [facility] Comment on above: [employer] COORDINATIO N Start: 12-05-2023 Telephone encounter Aiyana page PA-C Work Phone: Neurology Start: 12-04-2023 End: 12-04-2023 Home visit Janet Valencia PT Work Phone: [facility] Comment on above: PT DISC DC W VISIT Start: 12-04-2023 Telephone encounter Juan J gadlamez MD Work Phone: [facility] Comment on above: Medication Question Start: 12-01-2023 End: 12-01-2023 Home visit Anastasia Mackey PATHOLOGY TEACHER Work Phone: [facility] Comment on above: PATHOLOGY TEACHER ROUTINE Start: 11-29-2023 End: 11-29-2023 Home visit Anastasia Key PATHOLOGY TEACHER Work Phone: [facility] Comment on above: PATHOLOGY TEACHER ROUTINE Start: 11-27-2023 End: 11-27-2023 Home visit Lavernkatt Ana Luisa CCC-SURGICAL SUPPLIES STERILIZER Work Phone: [facility] Comment on above: SURGICAL SUPPLIES STERILIZER ROUTINE Start: 11-24-2023 End: 11-24-2023 Home visit Anastasia Key PATHOLOGY TEACHER Work Phone: [facility] Comment on above: PATHOLOGY TEACHER ROUTINE Start: 11-22-2023 End: 11-22-2023 Home visit Anastasia Key PATHOLOGY TEACHER Work Phone: [facility] Comment on above: PATHOLOGY TEACHER ROUTINE Start: 11-16-2023 End: 11-16-2023 Home visit Anastasia Key PATHOLOGY TEACHER Work Phone: [facility] Comment on above: PATHOLOGY TEACHER ROUTINE Start: 11-15-2023 End: 11-15-2023 Home visit Lavernkatt Ana Luisa CCC-SURGICAL SUPPLIES STERILIZER Work Phone: [facility] Comment on above: SURGICAL SUPPLIES STERILIZER EVAL Start: 11-14-2023 ambulatory Aiyana mistry PA-C Work Phone: Neurology Comment on above: Sinemet Start: 11-14-2023 E-mail encounter fro m caregiver Aiyana Garcia PA-C Work Phone: [facility] Start: 11-14-2023 End: 11-14-2023 Home visit Anastasiaalex Nicoleion PATHOLOGY TEACHER Work Phone: [facility] Comment on above: PATHOLOGY TEACHER ROUTINE Start: 11-13-2023 End: 11-13-2023 Home visit Kira CABRALW Work Phone: [facility] Comment on above: TOP STITCHER CARE COORDINATIO N Start: 11-13-2023 Telephone encounter Tania Driscoll [facility] Start: 11-07-2023 End: 11-07-2023 Patient encounter procedure Aiyana Garcia PA-C Work Phone: Neurology Comment on above: Parkinson's disease, unspecified whether dyskinesia present, unspecified whether manifestations fluctuate (HCC) (Primary Dx); Cognitive decline; Dementia associated with Parkinson's disease (HCC); RBD (REM behavioral disorder); Dementia without behavioral disturbance (HCC) Start: 11-03-2023 End: 11-03-[address] Juan J Hi Work Phone: [facility] Work Phone: Start: 11-03-2023 End: 11-03-[address] Juan J Hi Work Phone: [facility] Work Phone: Start: 10-30-2023 Telephone encounter Fernando Galarza MD Work Phone: Neurology Comment on above: Patient Question Start: 10-24-2023 Telephone encounter Juan J galdamez MD Work Phone: [facility] Comment on above: change in behavior Start: 10-12-2023 End: 10-12-2023 Patient encounter procedure Juan J Hi MD Work Phone: [facility] [place] Comment on above: Chronic gastritis wi thout bleeding, unspecified gastritis type (Primary Dx); Unsteady gait; Cognitive decline; Sprain of left ankle, unspecified ligament, subsequent encounter; Parkinson's disease, unspecified whether dyskinesia present, unspecified whether manifestations fluctuate (HCC) Start: 10-10-2023 End: 10-10-2023 Subsequent hospital visit by physician [facility] Work Phone: Cat Scan Comment on above: Dementia without beh avioral disturbance (HCC) [F03.90] Start: 10-02-2023 End: 10-02-2023 Emergency department patient visit [facility] Work Phone: Start: 09-14-2023 End: 09-14-2023 Patient encounter procedure Juan J Hi MD Work Phone: [facility] [place] Comment on above: Hypotension, unspeci fied hypotension type (Primary Dx); Chronic bilateral low back pain with bilateral sciatica; CAD (coronary artery disease); Chronic gastritis without bleeding, unspecified gastritis type; Coronary artery disease involving pechanga coronary artery of pechanga heart without angina pectoris Start: 08-15-2023 End: 08-15-2023 Subsequent hospital visit by physician [facility] Work Phone: Radiology Comment on above: URI, acute [J06.9] Start: 05-08-2023 Telephone encounter Yvrose Peterson RN Gastroenterology Comment on above: Appointment Confirma tion Start: 05-01-2023 End: 05-01-2023 PAT [facility] 1 Work Phone: Pre Anesthesia Comment on above: Pre-operative examin ation (Primary Dx); Parkinson's disease (HCC); Gastroesophageal reflux disease without esophagitis; Essential hypertension, benign; 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, unspecified vessel or lesion type (HCC); Uncomplicated asthma, unspecified asthma severity, unspecified whether persistent; Adjustment disorder with mixed anxiety and depressed mood; Chronic bilateral low back pain without sciatica; Dysphagia, unspecified type; Other hyperlipidemia; Small fiber neuropathy; Takotsubo cardiomyopathy; Urge incontinence; Weight loss, non-intentional; VHD (valvular heart disease); Osteoporosis, unspecified osteoporosis type, unspecified pathological fracture presence Start: 05-01-2023 End: 05-01-2023 Preprocedural examination done [facility] 1 Work Phone: [facility] Work Phone: Start: 04-18-2023 End: 04-18-2023 Patient encounter procedure Patsy Zayas PA-C Work Phone: G[facility]enter[facility] [place] Comment on above: Pain of upper abdome n (Primary Dx); Weight loss, non-intentional; Dysphagia, unspecified type Start: 02-16-2023 Telephone encounter Juan J galdamez MD Work Phone: [facility] [place] Comment on above: Orders Start: 02-13-2023 End: 02-13-2023 Patient encounter procedure Juan J Hi MD Work Phone: [facility] [place] Comment on above: Pain of upper abdome n (Primary Dx); Adjustment disorder with mixed anxiety and depressed mood; Chronic bilateral low back pain with bilateral sciatica; Urge incontinence; Takotsubo cardiomyopathy; Weight loss, non-intentional; Dysphagia, unspecified type; Osteoporosis, unspecified osteoporosis type, unspecified pathological fracture presence Start: 12-28-2022 End: 12-28-2022 ambulatory [facility] Work Phone: Start: 12-28-2022 End: 12-28-2022 Discharged Recurring [facility] Work Phone: Start: 11-15-2022 End: 11-15-2022 Subsequent hospital visit by physician [facility] Work Phone: Radiology Comment on above: Weight loss, non-int entional [R63.4] Start: 11-14-2022 End: 11-14-2022 Patient encounter procedure Juan J Hi MD Work Phone: [facility] [place] Comment on above: Medicare annual 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 Juan J Hi Work Phone: [facility] Work Phone: Start: 10-11-2022 End: 10-11-[address] Juan J Hi Work Phone: [facility] Start: 09-26-2022 Telephone encounter Juan J galdamez MD Work Phone: [facility] [place] Comment on above: Results Start: 09-19-2022 End: 09-19-[address] Juan J Hi Work Phone: [facility] Work Phone: Start: 09-19-2022 End: 09-19-[address] Juan J Hi Work Phone: [facility] Start: 09-19-2022 Telephone encounter Juan J galdamez MD Work Phone: [facility] Comment on above: Procedure Question Start: 09-14-2022 End: 09-14-2022 Subsequent hospital visit by physician [facility] Work Phone: Radiology Comment on above: Chronic cough [R05.3 ] Start: 08-26-2022 End: 08-26-[address] Juan J Hi Work Phone: [facility] Start: 08-01-2022 End: 08-01-2022 Patient encounter procedure Kristy Cr MD Work Phone: Neurology Comment on above: Parkinsonism, unspec ified Parkinsonism type (HCC) (Primary Dx); Unsteady gait Start: 07-18-2022 Refill Juan J ivory MD Work Phone: [facility] [place] Comment on above: Refill Request Start: 07-13-2022 End: 07-13-2022 ambulatory Renato Golias PT Work Phone: [facility] Comment on above: Neck pain (Primary D x); Chronic bilateral low back pain without sciatica; Pain in thoracic spine Start: 07-04-2022 End: 07-04-2022 ambulatory Renato Golias PT Work Phone: [facility] Comment on above: Neck pain (Primary D x); Chronic bilateral low back pain without sciatica; Pain in thoracic spine Start: 06-29-2022 End: 06-29-2022 ambulatory Cyndee Davis PATHOLOGY TEACHER Work Phone: [facility] Comment on above: Neck pain (Primary D x); Chronic bilateral low back pain without sciatica; Pain in thoracic spine Start: 06-27-2022 End: 06-27-2022 ambulatory Cyndee Davis PATHOLOGY TEACHER Work Phone: [facility] Comment on above: Neck pain (Primary D x); Chronic bilateral low back pain without sciatica; Pain in thoracic spine Start: 06-17-2022 End: 06-17-2022 ambulatory Renato Golias PT Work Phone: [facility] Comment on above: Neck pain (Primary D x); Chronic bilateral low back pain without sciatica; Pain in thoracic spine Start: 06-16-2022 Telephone encounter Kritsy sy MD Work Phone: Neurology Comment on above: Appointment (Time halina on 08/01) Start: 06-10-2022 End: 06-10-2022 ambulatory Renato Golias PT Work Phone: [facility] Comment on above: Neck pain (Primary D x); Chronic bilateral low back pain without sciatica; Pain in thoracic spine Start: 06-02-2022 End: 06-02-2022 ambulatory Renato Golias PT Work Phone: [facility] Comment on above: Chronic low back kade n, unspecified back pain laterality, unspecified whether sciatica present; Neck pain; Thoracic spine pain; Pain in thoracic spine Start: 05-10-2022 Telephone encounter Destiny hemphill FILM MOUNTER.FLAG CAR DRIVER Work Phone: [facility] Comment on above: Results Start: 05-10-2022 End: 05-10-2022 ambulatory Maral Moody FILM MOUNTER.FLAG CAR DRIVER Work Phone: [facility] Medicine [facility] Comment on above: COVID-19 virus infec tion (Primary Dx) Start: 05-10-2022 End: 05-10-2022 Telemedicine consultation with patient Maral Moody APRN.CNP Work Phone: [facility] Start: 05-09-2022 Telephone encounter Juan J galdamez MD Work Phone: [facility] Comment on above: Patient Update Start: 05-09-2022 End: 05-09-2022 Patient encounter procedure Teofilo Tom MD Work Phone: [facility] Comment on above: URI, acute (Primary Dx); Exposure to confirmed case of COVID-19 Start: 05-04-2022 ambulatory UNKNOWN PROVIDER Facili ty:[facility] Start: 05-04-2022 End: 05-04-2022 Subsequent hospital visit by physician [facility] Work Phone: Radiology Comment on above: Chronic low back kade n, unspecified back pain laterality, unspecified whether sciatica present [M54.50, G89.29] Start: 05-04-2022 End: 05-04-2022 Patient encounter procedure Piero Mittal PA-C Work Phone: [facility] Comment on above: Neck pain (Primary D x); Chronic low back pain, unspecified back pain laterality, unspecified whether sciatica present; Thoracic spine pain Start: 05-03-2022 ambulatory Kristy collier MD Work Phone: Neurology Comment on above: Ct scan Start: 04-29-2022 Telephone encounter Kristy sy MD Work Phone: [facility] Comment on above: Clinical Update Start: 04-27-2022 End: 04-27-2022 Subsequent hospital visit by physician Mri [facility] (I-Stat/1.5t) Work Phone: Radiology Start: 04-26-2022 Refill Juan J ivory MD Work Phone: [facility] Comment on above: Refill Request Start: 04-06-2022 End: 04-06-2022 Patient encounter procedure Kristy Cr MD Work Phone: Neurology Comment on above: Chronic low back kade n, unspecified back pain laterality, unspecified whether sciatica present (Primary Dx); Tremor; Unsteady gait; Parkinsonism, unspecified Parkinsonism type (HCC) Start: 03-03-2022 End: 03-03-2022 Patient encounter procedure Juan J Hi MD Work Phone: [facility] Comment on above: Takotsubo cardiomyop athy (Primary Dx); Adjustment disorder with mixed anxiety and depressed mood; Chronic bilateral low back pain with bilateral sciatica; Tremor Start: 02-28-2022 Telephone encounter Juan J galdamez MD Work Phone: [facility] Comment on above: Medication Question Start: 02-24-2022 Non-patient / Non-visit Dr. Tonya Hi Work Phone: [facility] Start: 02-24-2022 End: 02-24-[address] [facility] Start: 02-21-2022 Telephone encounter Geovanna Light MD Work Phone: General Surgery Comment on above: Results Start: 02-17-2022 End: 02-17-2022 Subsequent hospital visit by physician Stereo/Ultrasound Biopsy [facility] Comment on above: Microcalcifications of the breast [R92.0] Start: 02-10-[address] Juan J Hi [facility] Start: 02-01-2022 End: 02-01-[address] Juan J Hi Work Phone: [facility] Start: 02-01-2022 Non-patient / Non-visit Dr. Tonya Hi Work Phone: [facility] Start: 01-21-2022 End: 01-21-2022 Patient encounter procedure Geovanna Carter MD Work Phone: General Surgery Comment on above: Microcalcifications of the breast (Primary Dx); Postural kyphosis of cervicothoracic region Start: 01-19-2022 End: 01-19-2022 Subsequent hospital visit by physician Diagnostic Mammo [facility] Comment on above: Abnormal mammogram [ R92.8] Start: 12-23-2021 Telephone encounter Juan J galdamez MD Work Phone: [facility] Comment on above: Patient Update Start: 12-15-2021 Telephone encounter Juan J galdamez MD Work Phone: [facility] Comment on above: Orders Start: 12-01-2021 Documentation procedure Mammog mildred Coordinator [facility] Start: 12-01-2021 Letter encounter Mammography Coordinator [facility] Department Start: 11-30-2021 End: 11-30-2021 Subsequent hospital visit by physician Screen Mammo [facility] Comment on above: Encounter for screen ing mammogram for malignant neoplasm of breast [Z12.31] Start: 11-25-2021 End: 11-25-2021 Patient encounter procedure Juan J Hi MD Work Phone: [facility] Comment on above: Medicare annual well ness visit, subsequent (Primary Dx); Tremor; Unsteady gait; Adjustment disorder with mixed anxiety and depressed mood; Chronic bilateral low back pain with bilateral sciatica; Breast pain; Encounter for screening mammogram for malignant neoplasm of breast Procedures Date Procedure Procedure Detail Performing Clinician Start: 01-11-2024 [employer] COVI D-19 VACCINE ( SEASON) AGE 12+ YR Juan J Hi MD Work Phone: Start: 10-10-2023 Ct head/brain w/o co ntrast material Fernando Galarza MD Work Phone: Start: 10-02-2023 Plain chest X-ray Dr. Beckie iH Work Phone: Start: 10-02-2023 X-ray of both feet Dr. Juan J Hi Work Phone: Start: 08-15-2023 Radiologic exam ches t 2 views Jihan Card APRN.FLAG CAR DRIVER Work Phone: Start: 11-15-2022 Us abdominal real ti me w/image limited Juan J Hi MD Work Phone: Start: 10-11-[address] Juan J Hi Work Phone: Start: 09-14-2022 Radiologic exam ches t 2 views Juan J Hi MD Work Phone: Start: 05-02-2022 Adult depression scr eening assessment Kristy Cr MD Work Phone: Start: 02-17-2022 Bx breast w/device 1 st lesion stereotactic guid Geovanna Carter MD Work Phone: Start: 01-19-2022 Diagnostic mammograp hy computer-aided detcj uni Maral Older FILM MOUNTER.FLAG CAR DRIVER Work Phone: Start: 11-30-2021 Screening mammograph y bi 2-view breast inc cad Juan J Hi MD Work Phone: Start: 11-25-2021 Adult depression scr eening assessment Juan J Hi MD Work Phone: Start: 07-11-2017 End: 07-11-2017 JOSE Alvarado MD Start: 07-11-2017 End: 07-11-2017 Follow Up Appt 6 months Conner Eldridge Start: 06-19-2017 End: 07-11-2017 *Hepatic Function Panel Conner Eldridge Start: 06-19-2017 End: 07-11-2017 Lipid 1996 panel - Serum or Plasma Martin Alvarado MD Start: 12-22-2016 End: 12-22-2016 JOSE Rock PA-C Work Phone: Start: 12-22-2016 End: 12-22-2016 Follow Up Appt 6 months Regina bautista PA-C Work Phone: Start: 12-15-2016 End: 12-15-2016 *Hepatic Function Panel Conner Eldridge Start: 12-15-2016 End: 12-15-2016 Lipid 1996 panel - Serum or Plasma Martin Alvarado MD Start: 06-24-2016 End: 06-24-2016 Follow Up Appt 6 months Conner Eldridge Start: 06-24-2016 End: 06-24-2016 MMConner Alvarado MD Start: 06-17-2016 End: 06-22-2016 *Hepatic Function Panel Conner Eldridge Start: 06-17-2016 End: 06-22-2016 Lipid [place] panel - Serum or Plasma Martin Alvarado MD Start: 12-24-2015 End: 12-24-2015 VICE PRESIDENT [employer] MARKETING Regina Rock PA-C Work Phone: Start: 12-24-2015 End: 12-24-2015 Follow Up Appt 6 months Regina bautista PA-C Work Phone: Start: 12-16-2015 End: 12-16-2015 *Hepatic Function Panel Conner Eldridge Start: 12-16-2015 End: 12-16-2015 Lipid [place] panel - Serum or Plasma Martin Alvarado MD Start: 06-23-2015 End: 06-24-2015 Documentation of current medications Martin Alvarado MD Start: 06-23-2015 End: 12-15-2015 Follow Up Appt 6 months Conner Eldridge Start: 06-23-2015 End: 12-15-2015 MMConner Alvarado MD Start: 06-18-2015 End: 06-18-2015 *Hepatic Function Panel Conner Eldridge Start: 06-18-2015 End: 06-18-2015 Lipid 1996 panel - Serum or Plasma Martin Alvarado MD Start: 12-31-2014 End: 12-31-2014 *Hepatic Function Panel Conner Eldridge Start: 12-31-2014 End: 12-31-2014 Lipid 1996 panel - Serum or Plasma Martin Alvarado MD Start: 12-18-2014 End: 12-18-2014 VICE PRESIDENT SAL[employer] MARKETING Regina Rock PA-C Work Phone: Start: 12-18-2014 End: 12-19-2014 Documentation of current medications Regina Rock PA-C Work Phone: Start: 12-18-2014 End: 12-18-2014 Follow Up Appt 6 months Regina bautista PA-C Work Phone: Start: 06-20-2014 End: 06-25-2014 *Hepatic Function Panel Conner Eldridge Start: 06-20-2014 End: 06-20-2014 Follow Up Appt 6 months Conner Eldridge Start: 06-20-2014 End: 06-25-2014 Lipid [place] panel - Serum or Plasma Martin Alvarado MD Start: 06-20-2014 End: 06-20-2014 MMM Martin Alvarado MD Start: 06-20-2014 End: 06-25-2014 Nuclear stress test -Jigar Alvarado MD Start: 03-14-2014 End: 06-25-2014 *Hepatic Function Panel Conner Eldridge Start: 03-14-2014 End: 06-25-2014 Lipid 1996 panel - Serum or Plasma Martin Alvarado MD Start: 11-25-2013 End: 06-25-2014 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 PRESIDENT 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[employer] 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 Regina Rock PA-C Work Phone: Start: 11-25-2013 End: 06-25-2014 Follow Up Appt 6 months Regina bautista PA-C Work Phone: Start: 10-14-2013 End: 10-14-2013 Follow Up Appt 6 weeks Regina kan PA-C Work Phone: Start: 10-14-2013 End: 10-14-2013 MMM Regina Rock PA-C Work Phone: Start: 09-14-2013 End: 10-05-2013 *Hepatic Function Panel Conner Eldridge Start: 09-14-2013 End: 10-05-2013 Lipid 1996 panel - Serum or Plasma Martin Alvarado MD Start: 04-16-2013 End: 10-01-2013 *Hepatic Function Panel Conner Eldridge Start: 04-16-2013 End: 04-16-2013 Follow Up Appt 6 months Conner Eldridge Start: 04-16-2013 End: 10-01-2013 Lipid 1996 panel - Serum or Plasma Martin Alvarado MD Start: 04-16-2013 End: 04-16-2013 MMM Martin Alvarado MD Start: 03-14-2013 End: 04-08-2013 *Hepatic Function Panel Conner Eldridge Start: 03-14-2013 End: 04-08-2013 Lipid 1996 panel - Serum or Plasma Martin Alvarado MD Start: 10-10-2012 End: 10-22-2012 *Hepatic Function Panel Conner [facility] Start: 10-10-2012 End: 10-01-2013 Chest x-ray Martin Alvarado MD Start: 10-10-2012 End: 10-10-2012 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 PRESIDENT 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 [employer] 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 Martin Alvarado MD Start: 10-10-2012 End: 10-10-2012 Ecg routine ecg w/least 12 lds w/i&r Martin Alvarado MD Start: 10-10-2012 End: 10-10-2012 eRx Transmitted during this visit (Medicare only) Martin Alvarado MD Start: 10-10-2012 End: 10-10-2012 Follow Up Appt 6 months Conner Eldridge Start: 10-10-2012 End: 10-22-2012 Lipid 1996 panel - Serum or Plasma Martin Alvarado MD Start: 04-11-2012 End: 04-11-2012 eRx Transmitted during this visit (Medicare only) Martin Alvarado MD Start: 04-11-2012 End: 04-11-2012 Follow Up Appt 6 months Conner Eldridge Start: 04-11-2012 End: 04-12-2012 Nuclear stress test -exercise Martin Alvarado MD Start: 01-10-2012 End: 01-10-2012 Ecg routine ecg w/least 12 lds w/i&r Martin Alvarado MD Start: 01-10-2012 End: 01-10-2012 Follow Up Appt 3 months Conner Eldridge Start: 01-10-2012 End: 04-12-2012 Lipid 1996 panel - Serum or Plasma Martin Alvarado MD Plan of Treatment Date Care Activity Detail Author Start: 09-14-2028 Urine microalbumin profile [facility] Start: 09-06-2026 Diabetes Screening Diabetes Screening [facility] Start: 09-20-2025 DIABETES SCREEN DIABETES SCREEN [facility] Start: 09-20-2025 Diabetes Screening Diabetes Screening [facility] Start: 04-14-2025 Influenza vaccination [facility] Start: 01-10-2025 Medicare Annual Wellness Visit Medicare Annual Wellness Visit [facility] Start: 11-05-2024 DIABETES SCREEN DIABETES SCREEN [facility] Start: 09-06-2024 Hepatitis B surface antibody level LDL Cholesterol [facility] Start: 08-31-2024 RSV Vaccine (1 - 1-dose 60+ series) RSV Vaccine (1 - 1-dose 60+ series) [facility] Comment on above: Postponed from 2001 (Insurance Cov erage) Start: 08-31-2024 RSV Vaccine (1 - 1-dose 75+ series) RSV Vaccine (1 - 1-dose 75+ series) [facility] Comment on above: Postponed from 2016 (Insurance Cov erage) Start: 08-14-2024 Advance Directive Discussion Advance Directive Discussion [facility] Start: 07-08-2024 End: 07-08-2024 Patient encounter procedure 07/08/2024 5:40 PM EST Office Visit [facility] [address] [place], [place] [id number] Juan J Hi MD [address] [place], [place] [id number] 3 month follow-up [facility] Comment on above: 3 month follow-up Start: 05-24-2024 End: 05-24-2024 Patient encounter procedure Neurology Comment on above: 2 month, 60 min follow up, per [facility] 2 month, 60 min foll ow up, per [facility], nya 03/18/24 wjn, trial of aricept 5mg Start: 05-13-2024 Covid-19 Vaccine ( season) Covid-19 Vaccine () [facility] Start: 04-14-2024 Covid-19 Vaccine () Covid-19 Vaccine ( season) [facility] Start: 04-14-2024 Influenza vaccination Influenza Vaccine (#1) [facility] Start: 04-12-2024 End: 07-12-2024 25-hydroxyvitamin D3 [Mass/volume] in Serum or Plasma VITAMIN D 25 HYDROXY Lab Routine Vitamin D deficiency Expected: 04/12/2024, Expires: 07/12/2024 [facility] Comment on above: Expected: 04/12/2024, Expires: Start: 04-12-2024 End: 07-12-2024 CBC panel - Blood by Automated count COMPLETE BLOOD COUNT Lab Routine 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, unspecified vessel or lesion type (HCC) Expected: 04/12/2024, Expires: 07/12/2024 [facility] Comment on above: Expected: 04/12/2024, Expires: Start: 04-12-2024 End: 07-12-2024 Cobalamin (Vitamin B12) [Mass/volume] in Serum or Plasma VITAMIN B12 Lab Routine Dementia associated with Parkinson's disease (HCC) Expected: 04/12/2024, Expires: 07/12/2024 [facility] Comment on above: Expected: 04/12/2024, Expires: Start: 04-12-2024 End: 07-12-2024 Comprehensive metabolic 2000 panel - Serum or Plasma COMPREHENSIVE METABOLIC PANEL Lab Routine 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, unspecified vessel or lesion type (HCC) Expected: 04/12/2024, Expires: 07/12/2024 [facility] Comment on above: Expected: 04/12/2024, Expires: Start: 04-12-2024 End: 07-12-2024 Lipid 1996 panel - Serum or Plasma LIPID PANEL BASIC Lab Routine 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, unspecified vessel or lesion type (HCC) Expected: 04/12/2024, Expires: 07/12/2024 [facility] Comment on above: Expected: 04/12/2024, Expires: Start: 04-11-2024 End: 04-11-2024 Patient encounter procedure 04/11/2024 2:40 PM EDT Office Visit [facility] [address] [place] [address] Juan J Hi MD [address] [place], [place] [id number] 3 mo f/u [facility] Comment on above: 3 mo f/u Start: 03-18-2024 End: 03-18-2024 Patient encounter procedure 03/18/2024 1:00 PM EDT Office Visit Neurology [address] [place] [address] Fernando Galarza Jr., MD [address] [phone] Parkinsons- 3 month follow up Neurology Comment on above: Parkinsons- 3 month follow up Start: 02-29-2024 End: 02-29-2024 Patient encounter procedure 02/29/2024 3:00 PM EDT Office Visit Neurology [address] [place] [address] [place] [id number] Aiyana Garcia PA-C [address] [place], [place] [id number] follow up Neurology Comment on above: follow up Start: 01-11-2024 End: 01-11-2024 Patient encounter procedure 01/11/2024 5:40 PM EDT Office Visit [facility] Medicine [facility] [address] [place], [place] [id number] Juan J Hi MD [address] [place] [address] Medicare Wellness w/3 month follow-up [facility] Comment on above: Medicare Wellness w/3 month follow-up Start: 01-03-2024 End: 01-03-2024 Patient encounter procedure 01/03/2024 8:00 AM EDT Appointment [facility] [address] [place] [address] Agustina Orosco [facility] [address] [place] [address] 691 [facility] Comment on above: 691 Start: 12-29-2023 End: 12-29-2023 Patient encounter procedure 12/29/2023 9:00 AM EDT Office Visit Neurology [address] [place] [address] Suzie Barton, MALISSA.FLAG CAR DRIVER [address] [place] [address] 8 week follow up Neurology Comment on above: 8 week follow up Start: 12-21-2023 End: 12-21-2023 Home visit 12/21/2023 8:00 AM EDT Home Care Visit [facility] [address] [facility] [place] [address] Agustina Orosco, CCC-SURGICAL SUPPLIES STERILIZER [address] [facility] [address] 691- Deliver NOM[facility] Comment on above: 691- Deliver [facility] Start: 12-11-2023 End: 12-11-2023 Home visit 12/11/2023 8:00 AM EDT Home Care Visit [facility] [address] [facility] [place] [address] Agustina Orosco, CCC-SURGICAL SUPPLIES STERILIZER [address] [place] [address] 691 [facility] Comment on above: 691 Start: 11-15-2023 ANNUAL PCP TEAM CHRONIC DISEASE VISIT ANNUAL PCP TEAM CHRONIC DISEASE VISIT [facility] Start: 11-15-2023 COVID-19 VACCINE (4 - Booster for Pfizer series) COVID-19 VACCINE (4 - Booster for Pfizer series) [facility] Comment on above: Postponed from 12/14/2021 (Declined at t his time) Start: 11-15-2023 COVID-19 VACCINE (4 - Pfizer series) COVID-19 VACCINE (4 - Pfizer series) [facility] Comment on above: Postponed from 12/14/2021 (Declined at t his time) Start: 10-02-2023 [facility] Start: 10-02-2023 Plain chest X-ray Chest PA and Lateral [facility] Start: 10-02-2023 X-ray of both feet Foot min 3 Views [facility] Start: 10-02-2023 XR Chest PA and Lateral [facility] Start: 10-02-2023 XR Foot GE 3 Views [facility] Start: 09-20-2023 Hepatitis B surface antibody level LDL CHOLESTEROL [facility] Start: 09-14-2023 ANNUAL PCP TEAM CHRONIC DISEASE VISIT ANNUAL PCP TEAM CHRONIC DISEASE VISIT [facility] Start: 09-14-2023 BP CONTROLLED (<130/80) BP CONTROLLED (<130/80) [facility] Start: 08-14-2023 Advance Directive Discussion Advance Directive Discussion [facility] Start: 06-02-2023 BP CONTROLLED (<130/80) BP CONTROLLED (<130/80) [facility] Start: 05-10-2023 ANNUAL PCP TEAM CHRONIC DISEASE VISIT ANNUAL PCP TEAM CHRONIC DISEASE VISIT [facility] Start: 05-09-2023 BP CONTROLLED (<130/80) BP CONTROLLED (<130/80) [facility] Start: 05-04-2023 BP CONTROLLED (<130/80) BP CONTROLLED (<130/80) [facility] Start: 05-02-2023 Adult depression screening assessment DEPRESSION SCREENING [facility] Start: 04-14-2023 Covid-19 Vaccine ( season) Covid-19 Vaccine ( season) [facility] Start: 04-14-2023 Influenza vaccination [facility] Start: 04-06-2023 BP CONTROLLED (<130/80) BP CONTROLLED (<130/80) [facility] Start: 03-03-2023 ANNUAL PCP TEAM CHRONIC DISEASE VISIT ANNUAL PCP TEAM CHRONIC DISEASE VISIT [facility] Start: 03-03-2023 BP CONTROLLED (<130/80) BP CONTROLLED (<130/80) [facility] Start: 01-21-2023 BP CONTROLLED (<130/80) BP CONTROLLED (<130/80) [facility] Start: 11-25-2022 Adult depression screening assessment DEPRESSION SCREENING [facility] Start: 11-25-2022 ANNUAL PCP TEAM CHRONIC DISEASE VISIT ANNUAL PCP TEAM CHRONIC DISEASE VISIT [facility] Start: 11-25-2022 BP CONTROLLED (<130/80) BP CONTROLLED (<130/80) [facility] Start: 11-17-2022 End: 01-17-2023 Fibrin D-dimer FEU [Mass/volume] in Platelet poor plasma D-DIMER Lab Routine Pain and swelling of right knee Expected: 11/17/2022, Expires: 01/17/2023 [facility] Work Phone: Comment on above: Expected: 11/17/2022, Expires: 3 Start: 11-05-2022 Hepatitis B surface antibody level LDL CHOLESTEROL [facility] Start: 08-14-2022 ADVANCE DIRECTIVE DISCUSSION ADVANCE DIRECTIVE DISCUSSION [facility] Start: 08-14-2022 DEPRESSION ASSESSMENT DEPRESSION ASSESSMENT [facility] Start: 05-09-2022 End: 05-23-2022 SARS-CoV-2 (COVID-19) RNA [Presence] in Respiratory specimen by MAREN with probe detection 2019 CORONAVIRUS Microbiology Routine URI, acute Exposure to confirmed case of COVID-19 Expected: 05/09/2022, Expires: 05/23/2022 [facility] Work Phone: Comment on above: Expected: 05/09/2022, Expires: 2 Start: 04-28-2022 BP CONTROLLED (<130/80) BP CONTROLLED (<130/80) [facility] Start: 04-14-2022 Influenza vaccination INFLUENZA (#1) [facility] Start: 02-18-2022 COVID-19 VACCINE (4 - Booster for Pfizer series) COVID-19 VACCINE (4 - Booster for Pfizer series) [facility] Start: 12-14-2021 COVID-19 VACCINE (4 - Booster for Pfizer series) COVID-19 VACCINE (4 - Booster for Pfizer series) [facility] Start: 08-14-2021 DEPRESSION ASSESSMENT DEPRESSION ASSESSMENT [facility] Start: 10-22-2019 SHINGRIX VACCINE (2 of 2) SHINGRIX VACCINE (2 of 2) [facility] Start: 07-12-2018 End: 07-12-2018 Appointment Appointment [facility] Work Phone: Start: 01-09-2018 End: 01-09-2018 Appointment Appointment [facility] Work Phone: Start: 10-07-2017 Screening for osteoporosis Bone Density Screening [facility] Start: 07-11-2017 End: 07-11-2017 Appointment Appointment [facility] Work Phone: Start: 07-11-2017 End: 07-11-2017 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 PRESIDENT 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[employer] 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 PRESIDENT SALES [employer] MARKETING [facility] Work Phone: Start: 07-11-2017 End: 07-11-2017 Follow Up Appt 6 months Follow Up Appt 6 months [facility] Work Phone: Start: 06-19-2017 End: 07-11-2017 *Hepatic Function Panel *Hepatic Function Panel [facility] Work Phone: Start: 06-19-2017 End: 07-11-2017 Lipid panel [AGGREGATE] *Lipid Profile CC PCP [facility] Work Phone: Start: 12-22-2016 End: 12-22-2016 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 PRESIDENT 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 PRESIDENT 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 AND MARKETING [facility] Work Phone: Start: 12-22-2016 End: 12-22-2016 Follow Up Appt 6 months Follow Up Appt 6 months [facility] Work Phone: Start: 12-16-2016 End: 12-15-2016 *Hepatic Function Panel *Hepatic Function Panel [facility] Work Phone: Start: 12-16-2016 End: 12-15-2016 Lipid panel [AGGREGATE] *Lipid Profile CC PCP [facility] Work Phone: Start: 2016 RSV Vaccine (1 - 1-dose 75+ series) RSV Vaccine (1 - 1-dose 75+ series) [facility] Start: 06-24-2016 End: 06-24-2016 Follow Up Appt 6 months Follow Up Appt 6 months [facility] Work Phone: Start: 06-24-2016 End: 06-24-2016 MMM MMM [facility] Work Phone: Start: 06-17-2016 End: 06-22-2016 *Hepatic Function Panel *Hepatic Function Panel [facility] Work Phone: Start: 06-17-2016 End: 06-22-2016 Lipid panel [AGGREGATE] *Lipid Profile CC PCP [facility] Work Phone: Start: 12-24-2015 End: 12-24-2015 VICE PRESIDENT 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 AND 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 PRESIDENT SALES [employer] MARKETING [facility] Work Phone: Start: 12-24-2015 End: 12-24-2015 Follow Up Appt 6 months Follow Up Appt 6 months [facility] Work Phone: Start: 12-18-2015 End: 12-16-2015 *Hepatic Function Panel *Hepatic Function Panel [facility] Work Phone: Start: 12-18-2015 End: 12-16-2015 Lipid panel [AGGREGATE] *Lipid Profile CC PCP [facility] Work Phone: Start: 07-03-2015 End: 06-18-2015 *Hepatic Function Panel *Hepatic Function Panel [facility] Work Phone: Start: 07-03-2015 End: 06-18-2015 Lipid panel [AGGREGATE] *Lipid Profile CC PCP [facility] Work Phone: Start: 06-23-2015 End: 12-15-2015 Follow Up Appt 6 months Follow Up Appt 6 months [facility] Work Phone: Start: 06-23-2015 End: 12-15-2015 MMM MMM [facility] Work Phone: Start: 01-10-2015 End: 12-31-2014 *Hepatic Function Panel *Hepatic Function Panel [facility] Work Phone: Start: 01-10-2015 End: 12-31-2014 Lipid panel [AGGREGATE] *Lipid Profile CC PCP [facility] Work Phone: Start: 12-18-2014 End: 12-18-2014 VICE PRESIDENT 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 PRESIDENT 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 [employer] MARKETING [facility] Work Phone: Start: 12-18-2014 End: 12-18-2014 Follow Up Appt 6 months Follow Up Appt 6 months [facility] Work Phone: Start: 06-20-2014 End: 06-25-2014 *Hepatic Function Panel *Hepatic Function Panel [facility] Work Phone: Start: 06-20-2014 End: 06-20-2014 Follow Up Appt 6 months Follow Up Appt 6 months [facility] Work Phone: Start: 06-20-2014 End: 06-25-2014 Lipid panel [AGGREGATE] *Lipid Profile CC PCP [facility] Work Phone: Start: 06-20-2014 End: 06-20-2014 MMM MMM [facility] Work Phone: Start: 06-20-2014 End: 06-20-2014 Nuclear stress test -Lexiscan Nuclear stress test -Lexiscan [facility] Work Phone: Start: 03-14-2014 End: 06-25-2014 *Hepatic Function Panel *Hepatic Function Panel [facility] Work Phone: Start: 03-14-2014 End: 06-25-2014 Lipid panel [AGGREGATE] *Lipid Profile CC PCP [facility] Work Phone: Start: 11-25-2013 End: 06-25-2014 VICE PRESIDENT SALES AND 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 PRESIDENT SALES AND MARKETING [facility] Work Phone: Start: 11-25-2013 End: 06-25-2014 Follow Up Appt 6 months Follow Up Appt 6 months [facility] Work Phone: Start: 10-14-2013 End: 10-14-2013 Follow Up Appt 6 weeks Follow Up Appt 6 weeks [facility] Work Phone: Start: 10-14-2013 End: 10-14-2013 MMM MMM [facility] Work Phone: Start: 09-14-2013 End: 10-05-2013 *Hepatic Function Panel *Hepatic Function Panel [facility] Work Phone: Start: 09-14-2013 End: 10-05-2013 Lipid panel [AGGREGATE] *Lipid Profile CC PCP [facility] Work Phone: Start: 04-16-2013 End: 10-01-2013 *Hepatic Function Panel *Hepatic Function Panel [facility] Work Phone: Start: 04-16-2013 End: 04-16-2013 Follow Up Appt 6 months Follow Up Appt 6 months [facility] Work Phone: Start: 04-16-2013 End: 10-01-2013 Lipid panel [AGGREGATE] *Lipid Profile CC PCP [facility] Work Phone: Start: 04-16-2013 End: 04-16-2013 MMM MMM [facility] Work Phone: Start: 03-14-2013 End: 04-08-2013 *Hepatic Function Panel *Hepatic Function Panel [facility] Work Phone: Start: 03-14-2013 End: 04-08-2013 Lipid panel [AGGREGATE] *Lipid Profile [facility] Work Phone: Start: 10-10-2012 End: 10-22-2012 *Hepatic Function Panel *Hepatic Function Panel [facility] Work Phone: Start: 10-10-2012 End: 10-01-2013 Chest x-ray X-Ray, Chest, PA & Lateral [employer] [facility] Work Phone: Start: 10-10-2012 End: 10-10-2012 VICE PRESIDENT SALES AND 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 PRESIDENT SALES AND MARKETING [facility] [facility] Work Phone: Start: 10-10-2012 End: 10-10-2012 Ecg routine ecg w/least 12 lds w/i&r EKG (In office) [facility] Work Phone: Start: 10-10-2012 End: 10-10-2012 Follow Up Appt 6 months Follow Up Appt 6 months [facility] Work Phone: Start: 10-10-2012 End: 10-22-2012 Lipid panel [AGGREGATE] *Lipid Profile [facility] Work Phone: Start: 04-11-2012 End: 04-11-2012 Follow Up Appt 6 months Follow Up Appt 6 months [facility] Work Phone: Start: 04-11-2012 End: 04-11-2012 Nuclear stress test -exercise Nuclear stress test -exercise [facility] Work Phone: Start: 01-10-2012 End: 01-10-2012 Ecg routine ecg w/least 12 lds w/i&r EKG (In office) [facility] Work Phone: Start: 01-10-2012 End: 01-10-2012 Follow Up Appt 3 months Follow Up Appt 3 months [facility] Work Phone: Start: 01-10-2012 End: 04-12-2012 Lipid panel [AGGREGATE] *Lipid Profile [facility] Work Phone: Start: 2001 RSV Vaccine (1 - 1-dose 60+ series) RSV Vaccine (1 - 1-dose 60+ series) [facility] End: 02-20-2023 Bx breast w/device 1st lesion stereotactic guid MERLIN STEREO BX BREAST RT Radiology Routine Microcalcifications of the breast 1 Occurrences starting 01/21/2022 until 02/20/2023 [facility] Work Phone: Comment on above: 1 Occurrences starting 01/21/2022 until 02/20/2023 End: 05-29-2023 CT BRAIN WO IVCON CT BRAIN WO IVCON Radiology Routine Unsteady gait Parkinsonism, unspecified Parkinsonism type (HCC) 1 Occurrences starting 04/29/2022 until 05/29/2023 [facility] Work Phone: Comment on above: 1 Occurrences starting 04/29/2022 until 05/29/2023 End: 01-14-2023 Diagnostic mammography computer-aided detcj uni [facility] DIAGNOSTIC RT Radiology Routine Abnormal mammogram 1 Occurrences starting 12/15/2021 until 01/14/2023 [facility] Work Phone: Comment on above: 1 Occurrences starting 12/15/2021 until 01/14/2023 End: 02-09-2025 DXA Skeletal system.axial Views for bone density DXA-AXIAL SKELETON Radiology Routine Osteoporosis, unspecified osteoporosis type, unspecified pathological fracture presence 1 Occurrences starting 01/11/2024 until 02/09/2025 [facility] Work Phone: Comment on above: 1 Occurrences starting 01/11/2024 until 02/09/2025 End: 05-01-2024 Echocardiography ECHO Cardiology Routine Pre-operative examination 1 Occurrences starting 05/01/2023 until 05/01/2024 [facility] Work Phone: Comment on above: 1 Occurrences starting 05/01/2023 until 05/01/2024 End: 04-18-2024 EGD DIAGNOSTIC EGD DIAGNOSTIC Endoscopy Routine Pain of upper abdomen Weight loss, non-intentional Dysphagia, unspecified type 1 Occurrences starting 04/18/2023 until 04/18/2024 [facility] Work Phone: Comment on above: 1 Occurrences starting 04/18/2023 until 04/18/2024 End: 05-06-2023 Mri brain brain stem w/o contrast material MRI BRAIN WO IVCON Radiology Routine Tremor Unsteady gait Parkinsonism, unspecified Parkinsonism type (HCC) 1 Occurrences starting 04/06/2022 until 05/06/2023 [facility] Work Phone: Comment on above: 1 Occurrences starting 04/06/2022 until 05/06/2023 [facility] Work Phone: Patient referral [facility] Work Phone: PT PLAN OF CARE CERTIFICATION PT PLAN OF CARE CERTIFICATION Procedures Routine Chronic low back pain, unspecified back pain laterality, unspecified whether sciatica present Neck pain Thoracic spine pain Pain in thoracic spine Ordered: 06/02/2022 [facility] Work Phone: Comment on above: Ordered: 06/02/2022 End: 06-03-2023 Radex spine cervical 2 or 3 views XR CERV GENERAL 2V AP/LAT Radiology Routine Neck pain 1 Occurrences starting 05/04/2022 until 06/03/2023 [facility] Work Phone: Comment on above: 1 Occurrences starting 05/04/2022 until 06/03/2023 End: 05-04-2022 Radex spine cervical 2 or 3 views [facility] Work Phone: Comment on above: 1 Occurrences starting 05/04/2022 until 05/04/2022 End: 06-03-2023 Radex spine lumbosacral 2/3 views XR LUMBAR LIMITED 2V AP/LAT Radiology Routine Chronic low back pain, unspecified back pain laterality, unspecified whether sciatica present 1 Occurrences starting 05/04/2022 until 06/03/2023 [facility] Work Phone: Comment on above: 1 Occurrences starting 05/04/2022 until 06/03/2023 End: 05-04-2022 Radex spine lumbosacral 2/3 views [facility] Work Phone: Comment on above: 1 Occurrences starting 05/04/2022 until 05/04/2022 End: 06-03-2023 Radex spine thoracic 2 views XR THORACIC LIMITED 2V AP/LAT Radiology Routine Thoracic spine pain 1 Occurrences starting 05/04/2022 until 06/03/2023 [facility] Work Phone: Comment on above: 1 Occurrences starting 05/04/2022 until 06/03/2023 End: 05-04-2022 Radex spine thoracic 2 views [facility] Work Phone: Comment on above: 1 Occurrences starting 05/04/2022 until 05/04/2022 Screening mammograph y bi 2-view breast inc cad MERLIN SCREENING Radiology Routine Encounter for screening mammogram for malignant neoplasm of breast 11/30/2021 3:00 PM EDT [facility] Work Phone: End: 01-14-2023 Us breast uni real time with image limited US BREAST LTD RT Radiology Routine Abnormal mammogram 1 Occurrences starting 12/15/2021 until 01/14/2023 [facility] Work Phone: Comment on above: 1 Occurrences starting 12/15/2021 until 01/14/2023 [facility] c [facility] c [facility] Immunizations Immunization Date Immunization Notes Care Provider Fa cili 01-11-2024 COVID-19 vaccine, ag e 12+ yr, season ([employer]) Juan J Hi MD Work Phone: [facility] 05-29-2023 influenza (HD-IIV4) vaccine, age 65+ yr, high dose, quadrivalent, PF (FLUZONE HIGH-DOSE) Juan J Hi MD Work Phone: [facility] 05-29-2023 influenza virus vacc ine, unspecified formulation Juan J Hi MD Work Phone: [facility] 09-14-2022 influenza, high-dose , quadrivalent vaccine (FLUZONE HIGH DOSE QUADRIVALENT) Juan J Hi MD Work Phone: [facility] Work Phone: 09-14-2022 influenza virus vacc ine, unspecified formulation [facility] 1 Work Phone: [facility] 06-09-2021 influenza, high-dose , quadrivalent vaccine (FLUZONE HIGH DOSE QUADRIVALENT) Juan J Hi MD Work Phone: [facility] 03-31-2021 pneumococcal polysaccharide vaccine, 23 valent Juan J Hi MD Work Phone: [facility] Work Phone: 03-31-[address] Steve Hi Work Phone: [facility] Work Phone: 03-31-2021 pneumococcal vaccine , unspecified formulation Dr. Juan J Hi Work Phone: [facility] 11-26-2020 COVID-19 vaccine, ag e 12+ yr (PFIZER-BIONTECH - PURPLE TOP) Juan J Hi MD Work Phone: [facility] Work Phone: 11-04-2020 COVID-19 vaccine, ag e 12+ yr (PFIZER-BIONTECH - PURPLE TOP) Juan J Hi MD Work Phone: [facility] Work Phone: 08-27-2019 zoster vaccine recombinant Juan J Hi MD Work Phone: [facility] Work Phone: 09-14-2018 tetanus toxoid, redu shannon diphtheria toxoid, and acellular pertussis vaccine, adsorbed Juan J Hi MD Work Phone: [facility] 09-29-2015 pneumococcal conjuga te vaccine, 13 valent Juan J Hi MD Work Phone: [facility] 05-19-2012 influenza virus vacc ine, unspecified formulation Juan J Hi MD Work Phone: [facility] 06-06-2007 tetanus and diphther ia toxoids, adsorbed, preservative free, for adult use (2 Lf of tetanus toxoid and 2 Lf of diphtheria toxoid) Juan J Hi MD Work Phone: [facility] Payers Date Payer Category Payer Self-pay [id number] 2008 Medicare MEDICARE MEDICAR E A AND B [id number] 2008-Present [phone] [place] [address] Medicare [id number] 2008 Medicare [id number] 2008 Private Health Insurance [employer] A ETNA MEDICARE SUPPLEMENT [id number] 2008-Present [phone] [address] [address] [place] [address] Indemnity [id number] 2008 Private Health Insurance [id number] 2008 Private Health Insurance [id number] 2006 Medicare [id number] Unknown [id number] Unknown [id number] Social History Date Type Detail Facility [facility]: [facility] Work Phone: Start: 11-25-2021 End: 04-11-2024 Alcohol intake Current non-drinker of alcohol (finding) [facility] Start: 1940 Sex Assigned At Not on file [facility] Start: 11-20-2021 End: 05-04-2022 Exposure to SARS-CoV-2 (event) Not sure [facility] Start: 02-01-2022 End: 11-03-2023 Tobacco smoking status [facility] Unknown if ever smoked [facility] Start: 1940 Sex Assigned At Female [facility] Start: 06-28-2011 Tobacco use and exposure Smoke less tobacco non-user [facility] Work Phone: Start: 04-29-2022 End: 05-09-2022 Exposure to SARS-CoV-2 (event) Yes [facility] Work Phone: Start: 11-14-2022 History SDOH Alcohol Frequency 1 [facility] Start: 11-14-2022 History SDOH Alcohol Std Drinks 0 [facility] Start: 11-14-2022 End: 02-13-2023 [facility] Work [facility] Start: 11-14-2022 End: 02-13-2023 Alcohol Use Disorder Identification Test - Consumption [AUDIT-C] [facility] Work Phone: How often to you hav e a drink containing alcohol? Never [facility] Work Phone: How many standard dr inks containing alcohol do you have on a typical day? Patient does not drink [facility] Work Phone: Functional Status Date Assessment Result Facility 03-04-2015 Are you deaf, or do you have serious difficulty hearing No 03/04/2015 12:30 PM EDT [facility] No [facility] 03-04-2015 Are you blind, or do you have serious difficulty seeing, even when wearing glasses No 03/04/2015 12:30 PM EDT [facility] No [facility] 03-04-2015 Do you have serious difficulty walking or climbing stairs No 03/04/2015 12:30 PM EDT [facility] No [facility] 03-04-2015 Do you have difficul ty dressing or bathing No 03/04/2015 12:30 PM EDT [facility] No [facility] 03-04-2015 Because of a physica l, mental, or emotional condition, do you have difficulty doing errands alone such as visiting a physician's office or shopping No 03/04/2015 12:30 PM EDT [facility] Mental Status Date Assessment Result Facility 03-04-2015 Because of a physica l, mental, or emotional condition, do you have serious difficulty concentrating, remembering, or making decisions No 03/04/2015 12:30 PM EDT [facility] No [facility] Clinical Notes 10-23-2019 to 02-18-2025 Bonny Leon MA - 02/18/2025 8:18 AM Bonny Mcintyre MA - 01/14/2025 9:11 AM EDTTelephone Parker - Juan J Hi MD - 05/13/2024 11:52 PM EDTPatient InstructionsPatient Instructions Note Date & Type Note Facility 02-18-2025 Note HNO ID: [id number] Author: BONNY LEON MA Service: ? Author Type: Production Staff Worker Type: Progress Notes Filed: 02/18/2025 08:19 Note Text: POPULATION HEALTH NAVIGATION OUTREACH Action/FYI Contacted patient to schedule HCC care gaps and health maintenance. 1st attempt: Voicemail not set up and unable to leave message 2nd attempt: My Chart message sent Topic Due (Y or N) Comments Annual Wellness Exam Yes PCP Follow up No Colorectal Cancer Screening No A1C No HTN/Controlling BP No HCC Yes Updated appointment notes No Reason for Outreach Care Gap/HCC or Scheduling Wellness Visits Care Gaps due: Medicare Annual Wellness Visit Patient Contacted: Unable or unnecessary to reach patient: Unable to leave message [employer] message sent HCC related Navigation Signature: Bonny Leon MA February 18, 2025 8:18 AM [facility] 02-18-2025 History of Presen t illness Narrative POPULATION HEALTH NAVIGATION OUTREACH Action/FYI Contacted patient to schedule HCC care gaps and health maintenance. 1st attempt: Voicemail not set up and unable to leave message 2nd attempt: My Chart message sent Topic Due (Y or N) Comments Annual Wellness Exam Yes PCP Follow up No Colorectal Cancer Screening No A1C No HTN/Controlling BP No HCC Yes Updated appointment notes No Reason for Outreach Care Gap/HCC or Scheduling Wellness Visits Care Gaps due: Medicare Annual Wellness Visit Patient Contacted: Unable or unnecessary to reach patient: Unable to leave message [employer] message sent HCC related Navigation Signature: Bonny Leon MA February 18, 2025 8:18 AM documented in this encounter [facility] 02-18-2025 Note Patient Outreach (AFTAB TNAV) BREANNA PHELPS ([id number]) 1940 F Date Time Provider Department 02/18/25 BONNY LEON During your visit today, we recorded the following information about you: Bonny Leon MA 02/18/2025 8:19 AM Signed POPULATION HEALTH NAVIGATION OUTREACH Action/FYI Contacted patient to schedule HCC care gaps and health maintenance. 1st attempt: Voicemail not set up and unable to leave message 2nd attempt: My Chart message sent Topic Due (Y or N) Comments Annual Wellness Exam Yes PCP Follow up No Colorectal Cancer Screening No A1C No HTN/Controlling BP No HCC Yes Updated appointment notes No Reason for Outreach Care Gap/HCC or Scheduling Wellness Visits Care Gaps due: Medicare Annual Wellness Visit Patient Contacted: Unable or unnecessary to reach patient: Unable to leave message [employer] message sent HCC related Navigation Signature: Bonny Leon MA February 18, 2025 8:18 AM Allergies As of Date: 02/18/2025 Noted Allergy Reaction ELINA INHIBITORS 01/03/2012 3 - Cough Date Reviewed: 04/11/2024 Reviewed by: Monie Ugalde LPN - Fully Assessed Reason for Visit: Population Health Navigation Outreach [3910] Cmt: [facility] Prescriptions as of 02/18/2025 - melatonin 3 mg tablet Take 1 tablet by mouth daily at bedtime. - oxybutynin ER (DITROPAN XL) 15 mg 24 hr Extended Rel Tab Take 1 tablet by mouth once daily. - Mirtazapine (REMERON) 7.5 mg tablet Take 1 tablet by mouth daily at bedtime. - traMADol (ULTRAM) 50 mg tablet Take 1 tablet by mouth two times a day as needed for pain for up to 90 days. For back pain. - carbidopa-levodopa CR (SINEMET CR) 50-200 mg per tablet Take 1 tab twice daily (morning and night). - donepezil (ARICEPT) 5 mg tablet Take 1 tablet by mouth daily at bedtime. - carvedilol (COREG) 12.5 mg tablet Take 1 tablet by mouth two times a day. - DULoxetine (CYMBALTA) 60 mg capsule Take 1 capsule by mouth once daily. - Diaper,Brief, Adult,Disposable (DISPOSABLE BRIEF) Medium pull up brief, 4 per day - Incontinence Pad, Liner, Disp pads Two per day - Underpads pads Washable underpad - Underpads pads Disposable - Food Supplement, Lactose-Free (PROTEIN NUTRITIONAL SHAKE) liqd Take 237 mL by mouth three times a day with meals. - nitroglycerin sublingual (NITROQUICK) 0.4 mg SL tablet Dissolve 1 tablet under the tongue every 5 minutes as needed for chest pain. - sucralfate (CARAFATE) 100 mg/mL susp Take 10 mL by mouth every 6 hours. - atorvastatin (LIPITOR) 40 mg tablet Take 1 tablet by mouth once daily. - acetaminophen (TYLENOL) 500 mg tablet Take 1 tablet by mouth twice daily. - folic acid/multivit-min/lutein (CENTRUM SILVER ORAL) Take by mouth once daily. - nystatin (MYCOSTATIN) powder Apply 1 application to affected area three times daily. - Aspirin 81 mg ORAL Tab Take 1 tablet by mouth once daily. Take with food. Problem List As Of Date 02/18/2025 Noted Resolved Chronic bilateral low back pain without sciatic* Impaired fasting glucose [R73.01] 09/29/2015 Obesity, unspecified [E66.9] 02/07/2018 Other hyperlipidemia [E78.49] BENIGN HYPERTENSION [I10] Asthma [J45.909] 11/24/2005 Osteoporosis [M81.0] 06/06/2007 SPRAIN OF NECK [S13.9XXA] 08/10/2007 06/24/2008 SPRAIN SHOULDER/ARM NOS [[id number]] 08/10/2007 06/24/2008 Sprain and strain of unspecified site of knee a*08/10/2007 09/14/2012 CONTUSION NOS [T14.8XXA] 08/10/2007 06/24/2008 Osteoarthrosis involving lower leg [[id number]] 03/25/2008 Derangement of meniscus, not elsewhere classifi*03/25/2008 09/14/2012 Vitamin D deficiency [E55.9] 07/04/2008 Skin infection [L08.9] 01/07/2010 09/14/2012 Vertigo [R42] 12/28/2010 09/14/2012 CAD (coronary artery disease) [I25.10] 11/24/2011 B12 deficiency [E53.8] 12/16/2011 09/14/2018 Special screening for malignant neoplasms, colo*03/09/2012 09/14/2012 Diverticulosis of colon (without mention of hem*03/09/2012 09/14/2012 Gastroesophageal reflux disease without esophag*03/09/2012 Diaphragmatic hernia without mention of obstruc*03/09/2012 09/14/2012 Small fiber neuropathy [G62.9] 04/03/2012 YAMILETH (obstructive sleep apnea) [G47.33] 04/17/2012 03/17/2014 Pain in limb [M79.609] 05/14/2012 09/14/2012 Cervical spondylosis with radiculopathy [M47.22]05/14/2012 09/29/2015 Primary generalized (osteo)arthritis [M15.0] 07/31/2012 09/14/2018 Hypersomnia [G47.10] 03/17/2014 09/29/2015 Chronic nonallergic rhinitis [J31.0] 03/07/2016 09/14/2018 Urge incontinence [N39.41] 08/17/2016 Dry mouth [R68.2] 08/17/2016 09/14/2018 Dizziness and giddiness [R42] 02/15/2017 Obesity, Class I, BMI 30-34.9 [E66.811] 02/07/2018 09/19/2019 Obesity, Class II, BMI 35-39.9 [E66.812] 09/19/2019 Adjustment disorder with mixed anxiety and depr*09/19/2019 Adjustment disorder with depressed mood [F43.21]10/23/2019 10/01/2020 Christian (more content not included)... [facility] 01-14-2025 Note HNO ID: [id number] Author: BONNY LEON MA Service: ? Author Type: Production Staff Worker Type: Progress Notes Filed: 01/14/2025 09:11 Note Text: POPULATION HEALTH NAVIGATION OUTREACH Action/FYI Unable to speak to patient or leave message as phone is not working. I could not hear the patient and she could not hear me. My Chart message sent. Topic Due (Y or N) Comments Annual Wellness Exam Yes PCP Follow up Yes Colorectal Cancer Screening No A1C No HTN/Controlling BP No HCC Yes Updated appointment notes No Reason for Outreach Care Gap/HCC or Scheduling Wellness Visits Care Gaps due: Medicare Annual Wellness Visit Follow-up Appointment Patient Contacted: Unable or unnecessary to reach patient: Unable to leave message [employer] message sent HCC related Navigation Signature: Bonny Leon MA January 14, 2025 9:11 AM [facility] 01-14-2025 History of Presen t illness Narrative POPULATION HEALTH NAVIGATION OUTREACH Action/FYI Unable to speak to patient or leave message as phone is not working. I could not hear the patient and she could not hear me. My Chart message sent. Topic Due (Y or N) Comments Annual Wellness Exam Yes PCP Follow up Yes Colorectal Cancer Screening No A1C No HTN/Controlling BP No HCC Yes Updated appointment notes No Reason for Outreach Care Gap/HCC or Scheduling Wellness Visits Care Gaps due: Medicare Annual Wellness Visit Follow-up Appointment Patient Contacted: Unable or unnecessary to reach patient: Unable to leave message [employer] message sent HCC related Navigation Signature: Bonny Leon MA January 14, 2025 9:11 AM documented in this encounter [facility] 01-14-2025 Note Patient Outreach (NE TNAV) BREANNA PHELPS ([id number]) 1940 F Date Time Provider Department 01/14/25 BONNY LEON NETNAV During your visit today, we recorded the following information about you: Bonny Leon MA 01/14/2025 9:11 AM Signed POPULATION HEALTH NAVIGATION OUTREACH Action/FYI Unable to speak to patient or leave message as phone is not working. I could not hear the patient and she could not hear me. My Chart message sent. Topic Due (Y or N) Comments Annual Wellness Exam Yes PCP Follow up Yes Colorectal Cancer Screening No A1C No HTN/Controlling BP No HCC Yes Updated appointment notes No Reason for Outreach Care Gap/HCC or Scheduling Wellness Visits Care Gaps due: Medicare Annual Wellness Visit Follow-up Appointment Patient Contacted: Unable or unnecessary to reach patient: Unable to leave message MindMixerhart message sent HCC related Navigation Signature: Bonny Leon MA January 14, 2025 9:11 AM Allergies As of Date: 01/14/2025 Noted Allergy Reaction ELINA INHIBITORS 01/03/2012 3 - Cough Date Reviewed: 04/11/2024 Reviewed by: Monie Ugalde LPN - Fully Assessed Reason for Visit: Population Health Navigation Outreach [[id number]] Cmt: Adebayo/Workbench/ACO Prescriptions as of 01/14/2025 - melatonin 3 mg tablet Take 1 tablet by mouth daily at bedtime. - oxybutynin ER (DITROPAN XL) 15 mg 24 hr Extended Rel Tab Take 1 tablet by mouth once daily. - Mirtazapine (REMERON) 7.5 mg tablet Take 1 tablet by mouth daily at bedtime. - traMADol (ULTRAM) 50 mg tablet Take 1 tablet by mouth two times a day as needed for pain for up to 90 days. For back pain. - carbidopa-levodopa CR (SINEMET CR) 50-200 mg per tablet Take 1 tab twice daily (morning and night). - donepezil (ARICEPT) 5 mg tablet Take 1 tablet by mouth daily at bedtime. - carvedilol (COREG) 12.5 mg tablet Take 1 tablet by mouth two times a day. - DULoxetine (CYMBALTA) 60 mg capsule Take 1 capsule by mouth once daily. - Diaper,Brief, Adult,Disposable (DISPOSABLE BRIEF) Medium pull up brief, 4 per day - Incontinence Pad, Liner, Disp pads Two per day - Underpads pads Washable underpad - Underpads pads Disposable - Food Supplement, Lactose-Free (PROTEIN NUTRITIONAL SHAKE) liqd Take 237 mL by mouth three times a day with meals. - nitroglycerin sublingual (NITROQUICK) 0.4 mg SL tablet Dissolve 1 tablet under the tongue every 5 minutes as needed for chest pain. - sucralfate (CARAFATE) 100 mg/mL susp Take 10 mL by mouth every 6 hours. - atorvastatin (LIPITOR) 40 mg tablet Take 1 tablet by mouth once daily. - acetaminophen (TYLENOL) 500 mg tablet Take 1 tablet by mouth twice daily. - folic acid/multivit-min/lutein (CENTRUM SILVER ORAL) Take by mouth once daily. - nystatin (MYCOSTATIN) powder Apply 1 application to affected area three times daily. - Aspirin 81 mg ORAL Tab Take 1 tablet by mouth once daily. Take with food. Problem List As Of Date 01/14/2025 Noted Resolved Chronic bilateral low back pain without sciatic* Impaired fasting glucose [R73.01] 09/29/2015 Obesity, unspecified [E66.9] 02/07/2018 Other hyperlipidemia [E78.49] BENIGN HYPERTENSION [I10] Asthma [J45.909] 11/24/2005 Osteoporosis [M81.0] 06/06/2007 SPRAIN OF NECK [S13.9XXA] 08/10/2007 06/24/2008 SPRAIN SHOULDER/ARM NOS [DSZ4916] 08/10/2007 06/24/2008 Sprain and strain of unspecified site of knee a*08/10/2007 09/14/2012 CONTUSION NOS [T14.8XXA] 08/10/2007 06/24/2008 Osteoarthrosis involving lower leg [ZIV0923] 03/25/2008 Derangement of meniscus, not elsewhere classifi*03/25/2008 09/14/2012 Vitamin D deficiency [E55.9] 07/04/2008 Skin infection [L08.9] 01/07/2010 09/14/2012 Vertigo [R42] 12/28/2010 09/14/2012 CAD (coronary artery disease) [I25.10] 11/24/2011 B12 deficiency [E53.8] 12/16/2011 09/14/2018 Special screening for malignant neoplasms, colo*03/09/2012 09/14/2012 Diverticulosis of colon (without mention of hem*03/09/2012 09/14/2012 Gastroesophageal reflux disease without esophag*03/09/2012 Diaphragmatic hernia without mention of obstruc*03/09/2012 09/14/2012 Small fiber neuropathy [G62.9] 04/03/2012 YAMILETH (obstructive sleep apnea) [G47.33] 04/17/2012 03/17/2014 Pain in limb [M79.609] 05/14/2012 09/14/2012 Cervical spondylosis with radiculopathy [M47.22]05/14/2012 09/29/2015 Primary generalized (osteo)arthritis [M15.0] 07/31/2012 09/14/2018 Hypersomnia [G47.10] 03/17/2014 09/29/2015 Chronic nonallergic rhinitis [J31.0] 03/07/2016 09/14/2018 Urge incontinence [N39.41] 08/17/2016 Dry mouth [R68.2] 08/17/2016 09/14/2018 Dizziness and giddiness [R42] 02/15/2017 Obesity, Class I, BMI 30-34.9 [E66.811] 02/07/2018 09/19/2019 Obesity, Class II, BMI 35-39.9 [E66.812] 09/19/2019 Adjustment disorder with mixed anxiety and depr*09/19/2019 Adjustment disorder with depressed mood [F43.21]10/23/2019 10/01/2020 (more content not included)... [facility] 05-13-2024 Telephone encounter Note Okay. [facility] 05-13-2024 Miscellaneous Notes Okay. Meme from [facility] calling patient admitted to Hospice services on 05/11 at the patient's home. documented in this encounter [facility] 05-13-2024 Telephone encounter Note Danna was notified. [facility] 05-13-2024 Miscellaneous Notes Danna was notified. I agree and can follow with hospice. Danna ROACH with [facility] calling, she was at patients home today for evaluation and is going to switch patient over to hospice due to her parkinson and it progressiveness. Patient and family were agreeable to this. documented in this encounter [facility] 05-13-2024 Telephone encounter Note Meme from [facility] calling patient admitted to Hospice services on 05/11 at the patient's home. [facility] 05-10-2024 Telephone encounter Note I agree and can follow with hospice. [facility] 05-10-2024 Telephone encounter Note Danna ROACH with [facility] calling, she was at patients home today for evaluation and is going to switch patient over to hospice due to her parkinson and it progressiveness. Patient and family were agreeable to this. [facility] 04-29-2024 Telephone encounter Note Prescription Refill Information The patient has been identified by name and date of : Yes Caregiver verified no other encounters exist for this prescription request: Yes Caregiver confirmed with patient/requestor that no other refills are due, in the near future, with this provider at this time: Yes The last office visit in the department: 03/18/24 [facility] Does the patient have a future office visit with this provider/department: Yes 05/24/24 [facility] Requested Prescriptions Pending Prescriptions Disp Refills melatonin 3 mg tablet 90 tablet 1 Sig: Take 1 tablet by mouth daily at bedtime. Destiny Scott LPN April 29, 2024 8:28 AM [facility] 04-29-2024 Miscellaneous Notes Prescription Refill Information The patient has been identified by name and date of : Yes Caregiver verified no other encounters exist for this prescription request: Yes Caregiver confirmed with patient/requestor that no other refills are due, in the near future, with this provider at this time: Yes The last office visit in the department: 03/18/24 [facility] Does the patient have a future office visit with this provider/department: Yes 05/24/24 [facility] Requested Prescriptions Pending Prescriptions Disp Refills melatonin 3 mg tablet 90 tablet 1 Sig: Take 1 tablet by mouth daily at bedtime. Destiny Scott LPN April 29, 2024 8:28 AM documented in this encounter [facility] 04-22-2024 Telephone encounter Note Prescription Refill Information The patient has been identified by name and date of : Yes Caregiver verified no other encounters exist for this prescription request: Yes Caregiver confirmed with patient/requestor that no other refills are due, in the near future, with this provider at this time: Yes The last office visit in the department: 04-11-24 Does the patient have a future office visit with this provider/department: Yes Requested Prescriptions Pending Prescriptions Disp Refills oxybutynin ER (DITROPAN XL) 15 mg 24 hr Extended Rel Tab 90 tablet 3 Sig: Take 1 tablet by mouth once daily. Mirtazapine (REMERON) 7.5 mg tablet 30 tablet 2 Sig: Take 1 tablet by mouth daily at bedtime. Elana Simon April 22, 2024 1:17 PM [facility] 04-22-2024 Miscellaneous Notes Prescription Refill Information The patient has been identified by name and date of : Yes Caregiver verified no other encounters exist for this prescription request: Yes Caregiver confirmed with patient/requestor that no other refills are due, in the near future, with this provider at this time: Yes The last office visit in the department: 04-11-24 Does the patient have a future office visit with this provider/department: Yes Requested Prescriptions Pending Prescriptions Disp Refills oxybutynin ER (DITROPAN XL) 15 mg 24 hr Extended Rel Tab 90 tablet 3 Sig: Take 1 tablet by mouth once daily. Mirtazapine (REMERON) 7.5 mg tablet 30 tablet 2 Sig: Take 1 tablet by mouth daily at bedtime. Elana Simon April 22, 2024 1:17 PM documented in this encounter [facility] 04-11-2024 Instructions Juan J Hi MD - 04/11/2024 3:18 PM EDT DO [facility]. documented in this encounter [facility] 04-11-2024 Note HNO ID: [id number] Author: JUAN J HI MD Service: ? Author Type: Physician Type: Progress Notes Filed: 04/11/2024 16:00 Note Text: This note was created using 5 examples. Subjective Breanna Phelps is a 83 year old female with spouse and son. Her blood pressure was trending down with her weight. She denied symptoms of hypotension. Neurology adjusted medication to accommodate increased somnolence. Pain was stable. Review of Systems Constitutional: Positive for activity change, appetite change and unexpected weight change. HENT: Positive for trouble swallowing. Respiratory: Negative for shortness of breath. Cardiovascular: Negative for chest pain and palpitations. Gastrointestinal: Negative for nausea and vomiting. Musculoskeletal: Positive for arthralgias, back pain and gait problem. Neurological: Positive for tremors, speech difficulty and weakness. 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 donepezil (ARICEPT) 5 mg tablet Take 1 tablet by mouth daily at bedtime. carvedilol (COREG) 12.5 mg tablet Take 1 tablet by mouth two times a day. DULoxetine (CYMBALTA) 60 mg capsule Take 1 capsule by mouth once daily. Diaper,Brief, Adult,Disposable (DISPOSABLE BRIEF) Medium pull up brief, 4 per day Incontinence Pad, Liner, Disp pads Two per day Underpads pads Washable underpad Underpads pads Disposable Food Supplement, Lactose-Free (PROTEIN NUTRITIONAL SHAKE) liqd Take 237 mL by mouth three times a day with meals. traMADol (ULTRAM) 50 mg tablet Take 1 tablet by mouth two times a day as needed for pain for up to 90 days. For back pain. Mirtazapine (REMERON) 7.5 mg tablet Take 1 tablet by mouth daily at bedtime. melatonin 3 mg tablet Take 1 tablet by mouth daily at bedtime. nitroglycerin sublingual (NITROQUICK) 0.4 mg SL tablet Dissolve 1 tablet under the tongue every 5 minutes as needed for chest pain. (Patient taking differently: Dissolve 0.4 mg under the tongue every 5 minutes as needed for chest pain. Do not take more than 3 doses in 15 minutes) sucralfate (CARAFATE) 100 mg/mL susp Take 10 mL by mouth every 6 hours. atorvastatin (LIPITOR) 40 mg tablet Take 1 tablet by mouth once daily. oxybutynin ER (DITROPAN XL) 15 mg 24 hr Extended Rel Tab Take 1 tablet by mouth once daily. acetaminophen (TYLENOL) 500 mg tablet Take 1 tablet by mouth twice daily. folic acid/multivit-min/lutein (CENTRUM SILVER ORAL) Take by mouth once daily. nystatin (MYCOSTATIN) powder Apply 1 application to affected area three times daily. (Patient taking differently: Apply 1 application to affected area three times a day. under breasts) Aspirin 81 mg ORAL Tab Take 1 tablet by mouth once daily. Take with food. No current facility-administered medications for this visit. Objective BP 92/58 (BP Site: Left Arm, BP Position: Sitting, BP Cuff Size: Regular Adult) Pulse 84 Temp 36.7 ?C (98 ?F) (Temporal) Wt 48.9 kg (107 lb 12.9 oz) BMI 23.33 kg/m? Physical Exam Constitutional: Appearance: She is underweight. Cardiovascular: Rate and Rhythm: Normal rate and regular rhythm. Heart sounds: No murmur heard. No gallop. Pulmonary: Breath sounds: Normal breath sounds. Musculoskeletal: Right lower le+ Pitting Edema present. Left lower le+ Pitting Edema present. Neurological: General: No focal deficit present. Mental Status: Mental status is at baseline. Motor: Weakness present. Gait: Gait abnormal. Comments: Rollator. Labs not yet done. Assessment and Plan 1. Weight loss, non-intentional - ICD9: 783.21, ICD10: R63.4 (primary diagnosis) Failure to thrive. - CONSULT TO PALLIATIVE CARE 2. Chronic bilateral low back pain without sciatica - ICD9: 724.2, 338.29, ICD10: M54.50, G89.29 Stable. - TRAMADOL 50 MG TABLET 3. Dysphagia, unspecified type - ICD9: 787.20, ICD10: R13.10 Stable. - CONSULT TO PALLIATIVE CARE 4. Parkinson's disease, unspecified whether dyskinesia present, unspecified whether manifestations fluctuate (HCC) - ICD9: 332.0, ICD10: G20.A1 Progressing. - CONSULT TO PALLIATIVE CARE 5. Dementia associated with Parkinson's disease (HCC) - ICD9: 332.0, 294.10, ICD10: G20.A1, F02.80 Progressing. - CONSULT TO PALLIATIVE CARE (more content not included)... [facility] 04-11-2024 History of Presen t illness Narrative This note was created using [employer]. Subjective Breanna Phelps is a 83 year old female with spouse and son. Her blood pressure was trending down with her weight. She denied symptoms of hypotension. Neurology adjusted medication to accommodate increased somnolence. Pain was stable. Review of Systems Constitutional: Positive for activity change, appetite change and unexpected weight change. HENT: Positive for trouble swallowing. Respiratory: Negative for shortness of breath. Cardiovascular: Negative for chest pain and palpitations. Gastrointestinal: Negative for nausea and vomiting. Musculoskeletal: Positive for arthralgias, back pain and gait problem. Neurological: Positive for tremors, speech difficulty and weakness. 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 donepezil (ARICEPT) 5 mg tablet Take 1 tablet by mouth daily at bedtime. carvedilol (COREG) 12.5 mg tablet Take 1 tablet by mouth two times a day. DULoxetine (CYMBALTA) 60 mg capsule Take 1 capsule by mouth once daily. Diaper,Brief, Adult,Disposable (DISPOSABLE BRIEF) Medium pull up brief, 4 per day Incontinence Pad, Liner, Disp pads Two per day Underpads pads Washable underpad Underpads pads Disposable Food Supplement, Lactose-Free (PROTEIN NUTRITIONAL SHAKE) liqd Take 237 mL by mouth three times a day with meals. traMADol (ULTRAM) 50 mg tablet Take 1 tablet by mouth two times a day as needed for pain for up to 90 days. For back pain. Mirtazapine (REMERON) 7.5 mg tablet Take 1 tablet by mouth daily at bedtime. melatonin 3 mg tablet Take 1 tablet by mouth daily at bedtime. nitroglycerin sublingual (NITROQUICK) 0.4 mg SL tablet Dissolve 1 tablet under the tongue every 5 minutes as needed for chest pain. (Patient taking differently: Dissolve 0.4 mg under the tongue every 5 minutes as needed for chest pain. Do not take more than 3 doses in 15 minutes) sucralfate (CARAFATE) 100 mg/mL susp Take 10 mL by mouth every 6 hours. atorvastatin (LIPITOR) 40 mg tablet Take 1 tablet by mouth once daily. oxybutynin ER (DITROPAN XL) 15 mg 24 hr Extended Rel Tab Take 1 tablet by mouth once daily. acetaminophen (TYLENOL) 500 mg tablet Take 1 tablet by mouth twice daily. folic acid/multivit-min/lutein (CENTRUM SILVER ORAL) Take by mouth once daily. nystatin (MYCOSTATIN) powder Apply 1 application to affected area three times daily. (Patient taking differently: Apply 1 application to affected area three times a day. under breasts) Aspirin 81 mg ORAL Tab Take 1 tablet by mouth once daily. Take with food. No current facility-administered medications for this visit. Objective BP 92/58 (BP Site: Left Arm, BP Position: Sitting, BP Cuff Size: Regular Adult) Pulse 84 Temp 36.7 C (98 F) (Temporal) Wt 48.9 kg (107 lb 12.9 oz) BMI 23.33 kg/m Physical Exam Constitutional: Appearance: She is underweight. Cardiovascular: Rate and Rhythm: Normal rate and regular rhythm. Heart sounds: No murmur heard. No gallop. Pulmonary: Breath sounds: Normal breath sounds. Musculoskeletal: Right lower le+ Pitting Edema present. Left lower le+ Pitting Edema present. Neurological: General: No focal deficit present. Mental Status: Mental status is at baseline. Motor: Weakness present. Gait: Gait abnormal. Comments: Rollator. Labs not yet done. Assessment and Plan 1. Weight loss, non-intentional - ICD9: 783.21, ICD10: R63.4 (primary diagnosis) Failure to thrive. - CONSULT TO PALLIATIVE CARE 2. Chronic bilateral low back pain without sciatica - ICD9: 724.2, 338.29, ICD10: M54.50, G89.29 Stable. - TRAMADOL 50 MG TABLET 3. Dysphagia, unspecified type - ICD9: 787.20, ICD10: R13.10 Stable. - CONSULT TO PALLIATIVE CARE 4. Parkinson's disease, unspecified whether dyskinesia present, unspecified whether manifestations fluctuate (HCC) - ICD9: 332.0, ICD10: G20.A1 Progressing. - CONSULT TO PALLIATIVE CARE 5. Dementia associated with Parkinson's disease (HCC) - ICD9: 332.0, 294.10, ICD10: G20.A1, F02.80 Progressing. - CONSULT TO PALLIATIVE CARE We discussed palliative care and hospice. In my opinion she is a candidate for hospice. We agreed to consult palliative care for now. Do labs ordered. Hold off on bone density as treatments may not add much more to quality of life and may have side effects. Juan J Hi MD documented in this encounter [facility] 03-18-2024 Note HNO ID: [id number] Author: FERNANDO GALARZA JR, MD Service: ? Author Type: Physician Type: Progress Notes Filed: 03/24/2024 22:17 Note Text: NEW PATIENT (CONSULT) HISTORY AND PHYSICAL EXAM PRIMARY CARE PHYSICIAN: Juan J Hi MD REASON FOR CONSULT: Patient is in fact follow up REFERRING PHYSICIAN: No ref. provider found CHIEF COMPLAINT: Follow up HISTORY OF PRESENT ILLNESS: Breanna Phelps is a 83 year old female, BMI 23.98 kg/m2 with a PMH significant for and per prior note of 10/09/23: 1. Parkinson's disease, unspecified whether dyskinesia present, unspecified whether manifestations fluctuate (HCC) - ICD9: 332.0, ICD10: G20.A1 (primary diagnosis) Agree with prior evaluations that patient does have both symptoms and exam findings to support the dx of PD. However, patient has not been taking medications (Sinemet) in a regular manner, to know its true impact on disease. Currently taking Sinemet dose of 1.5 tabs about 6 hours apart and thus, taking most of med while sleeping during the night. Also uncertain if tolerating Sinemet 1.5 tabs of 25/100mg as sleeping during the day. Will attempt to lower dose of Sinemet 25/100mg to 1 tablet but have her take doses 4 hours apart with first dose about Noon when she usually wakes. Thus, will be taking at Noon, 4PM and 8PM with usual bedtime of about MN. May increase dose again in the future or add CR dosing at night, but would like to first see reponse to regular dosing. 2. Cognitive decline - ICD9: 294.9, ICD10: R41.89 3. Dementia associated with Parkinson's disease (HCC) - ICD9: 332.0, 294.10, ICD10: G20.A1, F02.80 Patient with obvious cognitive deficits on MOCA as above and subjective history supporting a progressive decline in cognition as well. Likely Dementia secondary to PD with known history. However, no recent metabolic workup and thus will check the following for reversible causes: - VITAMIN B12 BLOOD - TSH BLD - T4 FREE/FREE THYROX In addition, with no recent imaging, feel appropriate to get CT brain to evaluate for other intracranial causes including NPH given PD symptoms. Patient cannot lie flat but should still be able to image brain with some degree of head elevation. She would not be able to get MRI brain. In addition, given history and high suspicion for neurodegenerative process, will start on Namenda 5mg daily and increase to 5mg BID after 1 week. SE and ADRs d/w pt and her son who agrees with plan. 4. RBD (REM behavioral disorder) - ICD9: 327.42, ICD10: G47.52 Concern for significant injury - already with both shoulder and ankle injuries due to falls from bed as above. Will start on melatonin 3mg at bedtime and further increase dose as needed for persistence of symptoms and consider use of benzo if absolutely needed. SE and ADRs d/w pt and son. Explained to son means of safe guarding bedroom to avoid possible injuries secondary to RBD. Pt did see Conner ROACH during interim and per note: 1. Parkinson's disease, unspecified whether dyskinesia present, unspecified whether manifestations fluctuate (HCC) - ICD9: 332.0, ICD10: G20.A1 (primary diagnosis) 2. Cognitive decline - ICD9: 294.9, ICD10: R41.89 3. Dementia associated with Parkinson's disease (HCC) - ICD9: 332.0, 294.10, ICD10: G20.A1, F02.80 Patient was started on Namenda at last appointment, shortly after starting his medication, son noted that she started hallucinating, had roughly 10-12 episodes of this since starting Namenda. After it was stopped, she only had 1 or 2 episodes. Son reports that she starts reaching for things that are not present the patient states that she sees something so she wishes for it but she cannot grab it. Patient's memory stable from previous appointment, unfortunately were not able to perform MoCA today due to time constraints. Patient did have 1 fall since last appointment, fell out of bed while she was sleeping. Son does note that she has a tendency to act out her dreams at night, kicking and punching and reaching for things. Notes that many of her episodes of retching occur at nighttime when she is awake from 1 to 2 AM. No other falls, no dizziness or lightheadedness. Did adjust Sinemet doses as well at last appointment and patient doing well with this with 1 tablet 3 times a day 4 hours apart, starting at noon when she typically eats breakfast. However, patient is starting to have some nausea throughout the day, is unsure if it is related to medications or other GI issues that she has had in the past. Will discuss possibly starting carbidopa with Dr. Galarza to avoid nausea with this medication. Patient and family would be amenable to this. Regarding memory loss and previous Namenda. Did discuss Aricept, but patient having difficulty with losing weight and also has cardiac history. Will avoid this medication. Discussed other conservative measures as well including increasing physical exercise, increasi (more content not included)... [facility] 03-18-2024 History of Presen t illness Narrative NEW PATIENT (CONSULT) HISTORY AND PHYSICAL EXAM PRIMARY CARE PHYSICIAN: Juan J Hi MD REASON FOR CONSULT: Patient is in fact follow up REFERRING PHYSICIAN: No ref. provider found CHIEF COMPLAINT: Follow up HISTORY OF PRESENT ILLNESS: Breanna Phelps is a 83 year old female, BMI 23.98 kg/m2 with a PMH significant for and per prior note of 10/09/23: 1. Parkinson's disease, unspecified whether dyskinesia present, unspecified whether manifestations fluctuate (HCC) - ICD9: 332.0, ICD10: G20.A1 (primary diagnosis) Agree with prior evaluations that patient does have both symptoms and exam findings to support the dx of PD. However, patient has not been taking medications (Sinemet) in a regular manner, to know its true impact on disease. Currently taking Sinemet dose of 1.5 tabs about 6 hours apart and thus, taking most of med while sleeping during the night. Also uncertain if tolerating Sinemet 1.5 tabs of 25/100mg as sleeping during the day. Will attempt to lower dose of Sinemet 25/100mg to 1 tablet but have her take doses 4 hours apart with first dose about Noon when she usually wakes. Thus, will be taking at Noon, 4PM and 8PM with usual bedtime of about MN. May increase dose again in the future or add CR dosing at night, but would like to first see reponse to regular dosing. 2. Cognitive decline - ICD9: 294.9, ICD10: R41.89 3. Dementia associated with Parkinson's disease (HCC) - ICD9: 332.0, 294.10, ICD10: G20.A1, F02.80 Patient with obvious cognitive deficits on MOCA as above and subjective history supporting a progressive decline in cognition as well. Likely Dementia secondary to PD with known history. However, no recent metabolic workup and thus will check the following for reversible causes: - VITAMIN B12 BLOOD - TSH BLD - T4 FREE/FREE THYROX In addition, with no recent imaging, feel appropriate to get CT brain to evaluate for other intracranial causes including NPH given PD symptoms. Patient cannot lie flat but should still be able to image brain with some degree of head elevation. She would not be able to get MRI brain. In addition, given history and high suspicion for neurodegenerative process, will start on Namenda 5mg daily and increase to 5mg BID after 1 week. SE and ADRs d/w pt and her son who agrees with plan. 4. RBD (REM behavioral disorder) - ICD9: 327.42, ICD10: G47.52 Concern for significant injury - already with both shoulder and ankle injuries due to falls from bed as above. Will start on melatonin 3mg at bedtime and further increase dose as needed for persistence of symptoms and consider use of benzo if absolutely needed. SE and ADRs d/w pt and son. Explained to son means of safe guarding bedroom to avoid possible injuries secondary to RBD. Pt did see Conner ROACH during interim and per note: 1. Parkinson's disease, unspecified whether dyskinesia present, unspecified whether manifestations fluctuate (HCC) - ICD9: 332.0, ICD10: G20.A1 (primary diagnosis) 2. Cognitive decline - ICD9: 294.9, ICD10: R41.89 3. Dementia associated with Parkinson's disease (HCC) - ICD9: 332.0, 294.10, ICD10: G20.A1, F02.80 Patient was started on Namenda at last appointment, shortly after starting his medication, son noted that she started hallucinating, had roughly 10-12 episodes of this since starting Namenda. After it was stopped, she only had 1 or 2 episodes. Son reports that she starts reaching for things that are not present the patient states that she sees something so she wishes for it but she cannot grab it. Patient's memory stable from previous appointment, unfortunately were not able to perform MoCA today due to time constraints. Patient did have 1 fall since last appointment, fell out of bed while she was sleeping. Son does note that she has a tendency to act out her dreams at night, kicking and punching and reaching for things. Notes that many of her episodes of retching occur at nighttime when she is awake from 1 to 2 AM. No other falls, no dizziness or lightheadedness. Did adjust Sinemet doses as well at last appointment and patient doing well with this with 1 tablet 3 times a day 4 hours apart, starting at noon when she typically eats breakfast. However, patient is starting to have some nausea throughout the day, is unsure if it is related to medications or other GI issues that she has had in the past. Will discuss possibly starting carbidopa with Dr. Galarza to avoid nausea with this medication. Patient and family would be amenable to this. Regarding memory loss and previous Namenda. Did discuss Aricept, but patient having difficulty with losing weight and also has cardiac history. Will avoid this medication. Discussed other conservative measures as well including increasing physical exercise, increasing water intake. Did put referral for physical therapy and speech therapy as patient has had these in the past with benefit. Patient would prefer to do physical therapy at home, will put order in for [facility] at home to see if they are in network. Also encouraged brain exercises, increase physical activity for memory, patient and family agree and understand. 4. RBD (REM behavioral disorder) - ICD9: 327.42, ICD10: G47.52 Did try melatonin, without any significant benefit. Will follow-up with Dr. Galarza to further discuss REM sleep disorder. Did discuss concern of falling out of bed related to REM sleep disturbance and patient and family agree and understand. 5. Dementia without behavioral disturbance (HCC) - ICD9: 294.20, ICD10: F03.90 Patient was found to have low B12, encouraged supplementation with instructions given to patient and family. Patient is taking care of by her son who also takes care of her , his father who requires care. 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 Patient and family agreeable to treatment plan of care at this time, questions were answered. Patient to follow-up in [address] Galarza due to complexity of case. Pt currently taking Sinemet only twice per day as often cannot get the 3rd dose in. No side effects. Patient reports sleeping a lot. Thus sometimes misses morning dose. Waking up well after noon and when asked, goes to bed about 9PM. But per son, patient is sleeping most of the 24 hour period. Patient feels memory is worse and son agrees. Stopped Namenda due to side effects. Son feels patient is forgetting everything. Thinks she has done something when she hasn't. Often will wake up and think other people are in the house. Appears to be some issues with remembering too or taking too many pills. States will go to tell something and forget in seconds what she was going to say. Despite memory, she reports being independent with bathing, dressing, making meals. No other new meds started. On Remeron not for sleep but for weight loss. Not acting out dreams, but whenever wakes up is often in a confusional state. Not eating well - decreased appetite. REVIEW OF SYSTEMS GENERAL:No weight loss, malaise or fevers. HEENT:Negative for frequent or significant headaches, No changes in hearing or vision, no nose bleeds or other nasal problems NECK:Negative for lumps, goiter, pain and significant neck swelling RESPIRATORY: Negative for cough, wheezing or shortness of breath. CARDIOVASCULAR: Negative for chest pain, leg swelling or palpitations. GASTROINTESTINAL: Negative for abdominal discomfort, blood in stools or black stools or change in bowel habits GENITOURINARY: No history of dysuria, frequency or incontinence MUSCULOSKELETAL: Negative for joint pain or swelling, back pain or muscle pain. NEUROLOGIC:Negative for focal numbness or weakness, headaches and dizziness or syncope, vision changes, speech/language changes, changes in gait or falls -- besides those complaints as above in HPI. SKIN:Negative for lesions, rash, and itching. PSYCHIATRIC: Negative for sleep disturbance, mood disorder and recent psychosocial stressors. HEMATOLOGIC/LYMPHATIC/IMMUNOLOGI C:Negative for prolonged bleeding, bruising easily or swollen nodes. ENDOCRINE: Negative for cold or heat intolerance, polyuria, polydipsia and goiter. The remainder of the ROS was reviewed and is negative. LAB/IMAGING: Reviewed and include: WBC (k/uL) Date Value 09/28/2023 6.10 RBC (m/uL) Date Value 09/28/2023 3.99 Hemoglobin (g/dL) Date Value 09/28/2023 13.3 Hematocrit (%) Date Value 09/28/2023 40.4 MCV (fL) Date Value 09/28/2023 101.3 (H) MCH (pg) Date Value 09/28/2023 33.3 MCHC (g/dL) Date Value 09/28/2023 32.9 RDW-CV (%) Date Value 09/28/2023 11.8 Platelet Count (k/uL) Date Value 09/28/2023 298 MPV (fL) Date Value 09/28/2023 10.0 Glucose (mg/dL) Date Value 09/06/2023 94 BUN (mg/dL) Date Value 09/06/2023 21 Creatinine (mg/dL) Date Value 09/06/2023 0.72 Sodium (mmol/L) Date Value 09/06/2023 143 Potassium (mmol/L) Date Value 09/06/2023 4.5 Chloride (mmol/L) Date Value 09/06/2023 104 CO2 (mmol/L) Date Value 09/06/2023 26 Protein, Total (g/dL) Date Value 09/06/2023 7.2 Albumin (g/dL) Date Value 09/06/2023 4.4 Calcium, Total (mg/dL) Date Value 09/06/2023 10.3 (H) Alkaline Phosphatase (U/L) Date Value 09/06/2023 59 Bilirubin, Total (mg/dL) Date Value 09/06/2023 0.7 AST (U/L) Date Value 09/06/2023 27 ALT (U/L) Date Value 09/06/2023 10 Rheumatoid Factor (IU/mL) Date Value 10/23/2012 9 Hep C Antibody IA (no units) Date Value 10/23/2012 Negative MEDICATIONS: carvedilol (COREG) 12.5 mg tablet Take 1 tablet by mouth two times a day. DULoxetine (CYMBALTA) 60 mg capsule Take 1 capsule by mouth once daily. Diaper,Brief, Adult,Disposable (DISPOSABLE BRIEF) Medium pull up brief, 4 per day Incontinence Pad, Liner, Disp pads Two per day Underpads pads Washable underpad Underpads pads Disposable Food Supplement, Lactose-Free (PROTEIN NUTRITIONAL SHAKE) liqd Take 237 mL by mouth three times a day with meals. traMADol (ULTRAM) 50 mg tablet Take 1 tablet by mouth two times a day as needed for pain for up to 90 days. For back pain. Mirtazapine (REMERON) 7.5 mg tablet Take 1 tablet by mouth daily at bedtime. carbidopa-levodopa (SINEMET 25-100) 25-100 mg per tablet Take 1 tablet by mouth three times a day. (First dose when wake at noon and then all other dose 4 hours apart - Noon, 4PM and 8PM). melatonin 3 mg tablet Take 1 tablet by mouth daily at bedtime. nitroglycerin sublingual (NITROQUICK) 0.4 mg SL tablet Dissolve 1 tablet under the tongue every 5 minutes as needed for chest pain. (Patient taking differently: Dissolve 0.4 mg under the tongue every 5 minutes as needed for chest pain. Do not take more than 3 doses in 15 minutes) sucralfate (CARAFATE) 100 mg/mL susp Take 10 mL by mouth every 6 hours. atorvastatin (LIPITOR) 40 mg tablet Take 1 tablet by mouth once daily. oxybutynin ER (DITROPAN XL) 15 mg 24 hr Extended Rel Tab Take 1 tablet by mouth once daily. acetaminophen (TYLENOL) 500 mg tablet Take 1 tablet by mouth twice daily. folic acid/multivit-min/lutein (CENTRUM SILVER ORAL) Take by mouth once daily. nystatin (MYCOSTATIN) powder Apply 1 application to affected area three times daily. (Patient taking differently: Apply 1 application to affected area three times a day. under breasts) Aspirin 81 mg ORAL Tab Take 1 tablet by mouth once daily. Take with food. HISTORIES PAST MEDICAL HISTORY No date: Acid reflux No date: Adjustment disorder with depressed mood No date: Adjustment disorder with depressed mood No date: Adjustment disorder with mixed anxiety and depressed mood No date: Anemia No date: Asthma 11/24/2011: CAD (coronary artery disease) 05/14/2012: Cervical spondylosis with radiculopathy 12/11/2008: CHOLECYSTITIS SEE ALSO GALLBLADDER ACUTE WITH CALCULUS( Without obstruction) 05/29/2023: Chronic gastritis without bleeding 03/25/2008: DERANGEMENT MENISCUS NEC No date: Diaphragmatic hernia without mention of obstruction or gangrene 06/06/2007: Disorder of bone and cartilage, unspecified Comment: Osteopenia No date: Diverticulosis of colon (without mention of hemorrhage) No date: Dry eyes, bilateral No date: Essential hypertension, benign No date: High cholesterol 03/17/2014: Hypersomnia Comment: Dr. Worrell No date: Hypertension No date: Impaired fasting glucose No date: Lumbago No date: Miscarriage 03/25/2021: NSTEMI (non-ST elevated myocardial infarction) ([facility]) No date: Obesity, unspecified 04/17/2012: YAMILETH (obstructive sleep apnea) No date: Other and unspecified hyperlipidemia 04/06/2022: Parkinson's disease (HCC) No date: Rheumatic fever 04/03/2012: Small fiber neuropathy 03/25/2021: Takotsubo cardiomyopathy No date: Ulcer disease 11/24/2005: Unspecified asthma(493.90) 07/04/2008: Unspecified vitamin D deficiency 08/17/2016: Urge incontinence 12/28/2010: Vertigo No date: Vitamin B deficiency FAMILY HISTORY Problem Relation Age of Onset other (heart attack) Mother other (TB) Father Diabetes Maternal Grandfather Breast Cancer Sister other (lung cancer) Brother Coronary Artery Disease Brother Genitourinary () Brother hemodialysis Stroke Sister IC aneurysm Alzheimer's Disease Sister Psoriasis Sister SOCIAL HISTORY Social History Tobacco Use Smoking status: Never Smokeless tobacco: Never Vaping Use Vaping Use: Never used Substance Use Topics Alcohol use: No Drug use: No PHYSICAL EXAMINATION BP 108/67 (BP Site: Right Arm, BP Position: Sitting) Pulse 86 Resp 16 Wt 50.3 kg (110 lb 12.8 oz) SpO2 100% BMI 23.98 kg/m GENERAL EXAM: General appearance: NAD, pleasant. HEENT: NC/AT, nasal congestion absent, no oral lesions, membranes moist. NECK: No masses, supple. Lungs: CTA bilaterally. CV: RRR nl S1, S2 Extr: No cyanosis, clubbing or edema. Skin: Cool to touch. NEUROLOGICAL EXAM: General: Awake, alert, oriented x3 (person,place,time), speech fluent, no dysarthria; comprehension, naming, repetition intact. Impaired serial 7s and delayed recall as well as difficulties with clock drawing. No hypophonia. CN: PERRL, fEOMI and without nystagmus, VFF to confrontation, facial sensation and strength are normal and symmetric, hearing appears intact, palate and tongue movements are intact and symmetric. SCM and trapezius strength normal. Motor: Normal tone, bulk and strength (5/5) bilaterally (throughout extremities x4). Reflexes: 2/4 and symmetric, plantar stimulation is flexor. Coordination: FNF, ANDRES, HTS intact. Resting tremor improved in RUE. Sensation: LT intact throughout. No evidence of neglect. Gait: Difficulties rising without use of upper ext. Narrow based and stable but decreased stride with 180 degree turns. Mild decreased RUE swing. Assessment and Plan: ASSESSMENT/PLAN: 1. Parkinson's disease, unspecified whether dyskinesia present, unspecified whether manifestations fluctuate (HCC) - ICD9: 332.0, ICD10: G20.A1 (primary diagnosis) Patient with s/s to still suggest presence of PD. Patient with difficulties complying with meds as sleeping all the time. Sleepiness is chronic condition. Pt is not wanting further sleep testing. Possible sleepiness now worse with Sinemet. To improve med compliance and try to reduce SEs of Sinemet, will transition to Sinemet CR 50/200mg twice daily. SE and ADRs d/w pt. 2. Dementia associated with Parkinson's disease (HCC) - ICD9: 332.0, 294.10, ICD10: G20.A1, F02.80 Subjective progression and still impairment on MOCA. Pt receiving assistance at home from family and not driving. D/w pt and her son possible med options. Pt of all symptoms, most concerned about cognitive decline. Will place on trial of Aricept 5mg daily to see if any improvement. SE and ADRs d/w pt. 3. RBD (REM behavioral disorder) - ICD9: 327.42, ICD10: G47.52 History of symptoms today sound more as if patient awake and in confusion state rather than RBD. Still, feel melatonin of benefit and would continue as previously recommended. Again, pt not wanting any further sleep testing. 4. Daytime sleepiness - ICD9: 780.54, ICD10: R40.0 As above. Pt not driving. Fernando Galarza MD I spent a total of 35+ minutes on the date of the service which included preparing to see the patient, [id number] patient care, completing clinical documentation, obtaining and/or reviewing separately obtained history, performing a medically appropriate examination, counseling and educating the patient/family/caregiver, ordering medications, tests, or procedures, and communicating results to the patient/family/caregiver. documented in this encounter [facility] 03-09-2024 Telephone encounter Note Form completed. [facility] 03-09-2024 Miscellaneous Notes Form completed. Patient's son, Italia, said someone from Dr. Hi's office called him today. He is assuming it is about the issue below. Please call him back at [phone]. Form located and give to PCP for review- Please review recommended documentation - will fax to DDM once completed. Has this been addressed? Patient son Italia spoke to [employer] and they said faxed to the office asking for nutritional and calorie amount patient is needing daily for the protein shakes. He is not certain what day they faxed request to the office. Please advise documented in this encounter [facility] 03-08-2024 Telephone encounter Note Patient's son, Italia, said someone from Dr. Hi's office called him today. He is assuming it is about the issue below. Please call him back at [phone]. [facility] 03-08-2024 Telephone encounter Note Prescription Refill Information The patient has been identified by name and date of : Yes Caregiver verified no other encounters exist for this prescription request: Yes Caregiver confirmed with patient/requestor that no other refills are due, in the near future, with this provider at this time: Yes The last office visit in the department: 01/11/24 Does the patient have a future office visit with this provider/department: Yes Requested Prescriptions Pending Prescriptions Disp Refills carvedilol (COREG) 12.5 mg tablet 180 tablet 3 Sig: Take 1 tablet by mouth two times a day. Reyna Conner March 08, 2024 1:04 PM [facility] 03-08-2024 Miscellaneous Notes Prescription Refill Information The patient has been identified by name and date of : Yes Caregiver verified no other encounters exist for this prescription request: Yes Caregiver confirmed with patient/requestor that no other refills are due, in the near future, with this provider at this time: Yes The last office visit in the department: 01/11/24 Does the patient have a future office visit with this provider/department: Yes Requested Prescriptions Pending Prescriptions Disp Refills carvedilol (COREG) 12.5 mg tablet 180 tablet 3 Sig: Take 1 tablet by mouth two times a day. Reyna Conner March 08, 2024 1:04 PM documented in this encounter [facility] 03-07-2024 Telephone encounter Note Form located and give to PCP for review- Please review recommended documentation - will fax to DD once completed. [facility] 03-05-2024 Telephone encounter Note Has this been addressed? [facility] 03-01-2024 Telephone encounter Note Patient son Italia spoke to [employer] and they said faxed to the office asking for nutritional and calorie amount patient is needing daily for the protein shakes. He is not certain what day they faxed request to the office. Please advise [facility] 02-20-2024 Telephone encounter Note Rec'd completed and faxed back. [facility] 02-20-2024 Miscellaneous Notes Rec'd completed and faxed back. Esmer with [facility] calls to see if office received the CMN form for the trapeze. Esmer reports she faxed form on 02/13. Esmer is going to re-fax form. Call if form is not received. Shira Lawson LPN documented in this encounter [facility] 02-19-2024 Telephone encounter Note Esmer with [facility] calls to see if office received the CMN form for the trapeze. Esmer reports she faxed form on 02/13. Esmer is going to re-fax form. Call if form is not received. Shira Lawson LPN [facility] 02-13-2024 Telephone encounter Note Prescription Refill Information The patient has been identified by name and date of : Yes Caregiver verified no other encounters exist for this prescription request: Yes Caregiver confirmed with patient/requestor that no other refills are due, in the near future, with this provider at this time: Yes The last office visit in the department: 08/05/23 Does the patient have a future office visit with this provider/department: Yes Requested Prescriptions Pending Prescriptions Disp Refills DULoxetine (CYMBALTA) 60 mg capsule 90 capsule 1 Sig: Take 1 capsule by mouth once daily. Tasneem Conner February 13, 2024 12:23 PM [facility] 02-13-2024 Miscellaneous Notes Prescription Refill Information The patient has been identified by name and date of : Yes Caregiver verified no other encounters exist for this prescription request: Yes Caregiver confirmed with patient/requestor that no other refills are due, in the near future, with this provider at this time: Yes The last office visit in the department: 08/05/23 Does the patient have a future office visit with this provider/department: Yes Requested Prescriptions Pending Prescriptions Disp Refills DULoxetine (CYMBALTA) 60 mg capsule 90 capsule 1 Sig: Take 1 capsule by mouth once daily. Tasneem Conner February 13, 2024 12:23 PM documented in this encounter [facility] 02-07-2024 Telephone encounter Note Orders faxed to below number. Monie Ugalde LPN [facility] 02-07-2024 Miscellaneous Notes Orders faxed to below marissa. Monie Ugalde LPN JEFE Araujo @ [facility] calling with request for the following orders: Incontinence supplies: -Pull ups size Medium/uses 4 per day -Incontinence liner pads/2 per day -Washable under pads -Disposable under pads Nutritional Supplement: -generic protein shake Trapeze for hospital bed Please fax orders to [facility]. Barby Ibrahim RN documented in this encounter [facility] 02-07-2024 Telephone encounter Note JEFE Araujo @ [facility] calling with request for the following orders: Incontinence supplies: -Pull ups size Medium/uses 4 per day -Incontinence liner pads/2 per day -Washable under pads -Disposable under pads Nutritional Supplement: -generic protein shake Trapeze for hospital bed Please fax orders to [facility]. Barby Ibrahim RN [facility] 01-11-2024 History of Presen t illness Narrative This note was created using 5 examples. Subjective Breanna Phelps is a 83 year old female was here with spouse and son. Health was in general decline. Appetite was poor partly due to dysphagia. She was losing weight. She had been sleeping on a recliner due to chronic back pain, difficulty getting out of bed from her Parkinson's and dementia. Home health recommended hospital bed and we sent prescription but more forms were needed. Review of Systems Constitutional: Positive for activity change, appetite change, fatigue and unexpected weight change. HENT: Positive for trouble swallowing. Respiratory: Negative for cough, choking and shortness of breath. Cardiovascular: Negative for chest pain, palpitations and leg swelling. Gastrointestinal: Negative for nausea and vomiting. Musculoskeletal: Positive for arthralgias, back pain and gait problem. Skin: Negative for wound. Neurological: Positive for tremors, speech difficulty, weakness and light-headedness. Negative for facial asymmetry. Psychiatric/Behavioral: Positive for dysphoric mood. ACTIVE PROBLEM LIST Chronic Bilateral Low Back Pain Without Sciatica Other Hyperlipidemia Essential Hypertension, Benign Asthma Osteoporosis Osteoarthrosis Involving Lower Leg Vitamin D Deficiency Cad (Coronary Artery Disease) Gastroesophageal Reflux Disease Without Esophagitis Small Fiber Neuropathy Urge Incontinence Dizziness and Giddiness Obesity, Class II, Bmi 35-39.9 Adjustment Disorder With Mixed Anxiety and Depressed Mood Unsteady Gait Parkinson's disease Weight Loss, Non-Intentional Dysphagia Chronic Gastritis Without Bleeding Cognitive Decline Dementia Associated With Parkinson's Disease (Hcc) Current Outpatient Medications Medication Sig carbidopa-levodopa (SINEMET 25-100) 25-100 mg per tablet Take 1 tablet by mouth three times a day. (First dose when wake at noon and then all other dose 4 hours apart - Noon, 4PM and 8PM). melatonin 3 mg tablet Take 1 tablet by mouth daily at bedtime. nitroglycerin sublingual (NITROQUICK) 0.4 mg SL tablet Dissolve 1 tablet under the tongue every 5 minutes as needed for chest pain. (Patient taking differently: Dissolve 0.4 mg under the tongue every 5 minutes as needed for chest pain. Do not take more than 3 doses in 15 minutes) sucralfate (CARAFATE) 100 mg/mL susp Take 10 mL by mouth every 6 hours. atorvastatin (LIPITOR) 40 mg tablet Take 1 tablet by mouth once daily. DULoxetine (CYMBALTA) 60 mg capsule Take 1 capsule by mouth once daily. oxybutynin ER (DITROPAN XL) 15 mg 24 hr Extended Rel Tab Take 1 tablet by mouth once daily. carvedilol (COREG) 12.5 mg tablet Take 1 tablet by mouth twice daily. acetaminophen (TYLENOL) 500 mg tablet Take 1 tablet by mouth twice daily. folic acid/multivit-min/lutein (CENTRUM SILVER ORAL) Take by mouth once daily. nystatin (MYCOSTATIN) powder Apply 1 application to affected area three times daily. (Patient taking differently: Apply 1 application to affected area three times a day. under breasts) Aspirin 81 mg ORAL Tab Take 1 tablet by mouth once daily. Take with food. traMADol (ULTRAM) 50 mg tablet Take 1 tablet by mouth two times a day as needed for pain for up to 90 days. For back pain. No current facility-administered medications for this visit. Objective BP 102/65 Pulse 80 Temp 36.9 C (98.5 F) (Temporal) Resp 16 Ht 144.8 cm (4' 9) Wt 54.2 kg (119 lb 8 oz) SpO2 97% BMI 25.86 kg/m Physical Exam Constitutional: General: She is not in acute distress. Appearance: She is underweight. HENT: Head: Atraumatic. Mouth/Throat: Mouth: Mucous membranes are moist. Pharynx: Oropharynx is clear. Eyes: Conjunctiva/sclera: Conjunctivae normal. Cardiovascular: Rate and Rhythm: Normal rate and regular rhythm. Heart sounds: No murmur heard. No gallop. Pulmonary: Effort: No respiratory distress. Breath sounds: Normal breath sounds. No wheezing or rales. Abdominal: General: There is no distension. Tenderness: There is no abdominal tenderness. Musculoskeletal: Thoracic back: Tenderness present. Lumbar back: Tenderness present. Right lower le+ Pitting Edema present. Left lower le+ Pitting Edema present. Comments: Moderate kyphoscoliosis. Neurological: General: No focal deficit present. Mental Status: She is alert. Mental status is at baseline. Cranial Nerves: Dysarthria present. Motor: Weakness, tremor and abnormal muscle tone present. Gait: Gait abnormal. Comments: Using a rollator. Assessment and Plan 1. Medicare annual wellness visit, subsequent - ICD9: V70.0, ICD10: Z00.00 (primary diagnosis) - See wellness note. 2. Chronic bilateral low back pain without sciatica - ICD9: 724.2, 338.29, ICD10: M54.50, G89.29 - TRAMADOL 50 MG TABLET - Form for hospital bed completed. 3. Parkinson's disease, unspecified whether dyskinesia present, unspecified whether manifestations fluctuate (HCC) - ICD9: 332.0, ICD10: G20.A1 - Form for hospital bed completed. 4. Adjustment disorder with mixed anxiety and depressed mood - ICD9: 309.28, ICD10: F43.23 - MIRTAZAPINE 7.5 MG TABLET. Discussed medication dosage, usage, goals of therapy, and side effects. 5. Urge incontinence - ICD9: 788.31, ICD10: N39.41 - Stable. 6. Osteoporosis, unspecified osteoporosis type, unspecified pathological fracture presence - ICD9: 733.00, ICD10: M81.0 - Reviewed the need for Calcium and Vitamin D supplements and weight bearing exercise as tolerated - DXA-AXIAL SKELETON 7. Dementia associated with Parkinson's disease (HCC) - ICD9: 332.0, 294.10, ICD10: G20.A1, F02.80 - Form for hospital bed completed. - VITAMIN B12 8. Weight loss, non-intentional - ICD9: 783.21, ICD10: R63.4 See above. - MIRTAZAPINE 7.5 MG TABLET 9. 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 - COMPLETE BLOOD COUNT - COMPREHENSIVE METABOLIC PANEL - LIPID PANEL BASIC 10. Vitamin D deficiency - ICD9: 268.9, ICD10: E55.9 Recheck. - VITAMIN D 25 HYDROXY 11. Need for COVID-19 vaccine - ICD9: V04.89, ICD10: Z23 - [employer] COVID-19 VACCINE ( SEASON) AGE 12+ YR Juan J Hi MD Images from the original note were not included. Breanna Phelps is a 83 year old female here for a Medicare wellness visit. Medicare Health Risk Assessment General Health Poor Exercise: Minutes/Day 0 min Exercise: Days/Week 0 days Alcohol: Daily Use Never Alcohol: Drinks/Day Patient does not drink Alcohol: 6 or more drinks Never Feel off balance Yes Concerns: Teeth/Dentures Yes Concerns: Sexual function No Troubled by feelings Anxious; Stressed; Irritable Frequency: Eating healthy diet More than half the days ADLs requiring help Grocery shopping; Cooking; Housework; Dressing; Sitting or standing; Walking; Handling finances; Taking medications; Using the telephone; Driving Safety precautions in home/vehicle Yes Smoke, vape, chews tobacco No Difficulty hearing No Difficulty seeing No Current Providers Specialists: I have reviewed specialist-related care of the patient in the medical record. Current care team: Patient Care Team: Juan J Hi MD as PCP - Fernando Poe MD, Neurology. Dr. Martin Alvarado, cardiology. Leandro Kingston, Senior Stack Engineer. Dr. Max Hollis, Ophthalmology. MARLEY Bowman [facility]. . [facility] Care. Medical/Family history review Reviewed and updated problem list, medical/surgical/family/social history, medications, and allergies. Opioid use review Opioid Medications (last 90 days) 12/28/2023 23:59 Opioid Medications tramadol HCl -Rx End No sig Details Outpatient prescription Depression screening Depression Screening PHQ-2 Score 08/31/2023 0 Depression screening tool completed and reviewed. Based on score and interview, patient is already diagnosed with depression. Screening tool discussed with patient, and I recommended continuing current treatment plan. Cognitive screening Cognitive screening reviewed and Patient has known cognitive impairment. Functional Observation Was the patient's Timed Up & Go test unsteady or ? 12 seconds? Yes Advance Care Planning Surrogate decision maker and/or advance care plan documented Measurements BP 102/65 Pulse 80 Temp (Src) 98.5 (Temporal) Resp 16 Ht 4' 9 (1.45m) Wt 119 lb 8 oz (54.2kg) SpO2 97% BMI 25.85 kg/(m^2). Vision Screening: Follows with optometry/ophthalmology Assessment/Plan Medicare annual wellness visit, subsequent (Z00.00) - Counseled on healthy diet and regular exercise - Fall avoidance information provided - Personalized prevention plan provided documented in this encounter [facility] 01-03-2024 Miscellaneous Notes SITUATION: spouse and son present during today's visit. patient reports the following changes since the last homecare visit: medications/allergies--None, falls--None. patient and caregiver reports Patient had cataract surgery earlier this morning. She reports she feels fine although her eye feels a little scratchy. BACKGROUND: Diagnoses (reason for Home Care): Diagnoses (reason for Home Care): Diagnoses (reason for Home Care): G20.A1 (ICD-10-CM) - Parkinson's disease, unspecified whether dyskinesia present, unspecified whether manifestations fluctuate (HCC) Past Medical History: G20.A1 (ICD-10-CM) - Parkinson's disease, unspecified whether dyskinesia present, unspecified whether manifestations fluctuate (HCC) Any one of the comorbidities from the list below may have a deleterious effect on the primary home care diagnosis.- (this is from problem list in snapshot)- .prob ACTIVE PROBLEM LIST Chronic Bilateral Low Back Pain Without Sciatica Other Hyperlipidemia Essential Hypertension, Benign Asthma Osteoporosis Osteoarthrosis Involving Lower Leg Vitamin D Deficiency Cad (Coronary Artery Disease) Gastroesophageal Reflux Disease Without Esophagitis Small Fiber Neuropathy Urge Incontinence Dizziness and Giddiness Obesity, Class II, Bmi 35-39.9 Adjustment Disorder With Mixed Anxiety and Depressed Mood Unsteady Gait Parkinson's disease Weight Loss, Non-Intentional Dysphagia Chronic Gastritis Without Bleeding Cognitive Decline Objective/Assessment: Pt has Met goals regarding dysphagia and management of cognitive skills and has reached maximum potential at this time with treatment for dysphonia. Discharge plan: patient and caregiver to continue with home exercise program for cognitive- linguistic deficits,Dysphagia and voice. See intervention summary for intervention/education details. documented in this encounter [facility] 01-03-2024 Patient's home Note SITUATION: spouse and son present during today's visit. patient reports the following changes since the last homecare visit: medications/allergies--None, falls--None. patient and caregiver reports Patient had cataract surgery earlier this morning. She reports she feels fine although her eye feels a little scratchy. BACKGROUND: Diagnoses (reason for Home Care): Diagnoses (reason for Home Care): Diagnoses (reason for Home Care): G20.A1 (ICD-10-CM) - Parkinson's disease, unspecified whether dyskinesia present, unspecified whether manifestations fluctuate (HCC) Past Medical History: G20.A1 (ICD-10-CM) - Parkinson's disease, unspecified whether dyskinesia present, unspecified whether manifestations fluctuate (HCC) Any one of the comorbidities from the list below may have a deleterious effect on the primary home care diagnosis.- (this is from problem list in snapshot)- .prob ACTIVE PROBLEM LIST Chronic Bilateral Low Back Pain Without Sciatica Other Hyperlipidemia Essential Hypertension, Benign Asthma Osteoporosis Osteoarthrosis Involving Lower Leg Vitamin D Deficiency Cad (Coronary Artery Disease) Gastroesophageal Reflux Disease Without Esophagitis Small Fiber Neuropathy Urge Incontinence Dizziness and Giddiness Obesity, Class II, Bmi 35-39.9 Adjustment Disorder With Mixed Anxiety and Depressed Mood Unsteady Gait Parkinson's disease Weight Loss, Non-Intentional Dysphagia Chronic Gastritis Without Bleeding Cognitive Decline Objective/Assessment: Pt has Met goals regarding dysphagia and management of cognitive skills and has reached maximum potential at this time with treatment for dysphonia. Discharge plan: patient and caregiver to continue with home exercise program for cognitive- linguistic deficits,Dysphagia and voice. See intervention summary for intervention/education details. [facility] Work Phone: 12-21-2023 Miscellaneous Notes 12/21/23 4:03 PM - 4:11 PM OUTSIDE SALES PROFESSIONAL called [facility] to follow-up on the pt. getting a hospital bed and spoke to Esmer. She stated that they were still waiting in information back from the Dr. She stated they will fax the DrBhavin again. Esmer stated they did not have the pt.'s demographics and asked OUTSIDE SALES PROFESSIONAL for the pt.'a address and phone number. OUTSIDE SALES PROFESSIONAL provided her with the pt.'s address and the phone number for the pt.'s son Italia. She stated that they will contact the pt.'s son. Esmer also needed the pt.'s insurance information and she stated they will work on the pt. getting a hospital bed. OUTSIDE SALES PROFESSIONAL and Esmer confirmed the fax number for Dr. Juan J Martin. 12/21/23 4:11 PM - 4:14 PM OUTSIDE SALES PROFESSIONAL called the pt.'s son Italia and stated OUTSIDE SALES PROFESSIONAL spoke to Esmer with [facility] and they are waiting for information back from the Dr. Hi and will request again. OUTSIDE SALES PROFESSIONAL informed the pt.'s son [employer] [facility] will call him. OUTSIDE SALES PROFESSIONAL stated she received a message from Johana with [facility] that the pt. is being enrolled on [employer]. Italia stated that he needs to get neeeded paperwork to get her approved for [employer]. documented in this encounter [facility] 12-21-2023 Patient's home Note 12/21/23 4:03 PM - 4:11 PM OUTSIDE SALES PROFESSIONAL called [facility] to follow-up on the pt. getting a hospital bed and spoke to Esmer. She stated that they were still waiting in information back from the Dr. She stated they will fax the DrBhavin again. Esmer stated they did not have the pt.'s demographics and asked OUTSIDE SALES PROFESSIONAL for the pt.'a address and phone number. OUTSIDE SALES PROFESSIONAL provided her with the pt.'s address and the phone number for the pt.'s son Italia. She stated that they will contact the pt.'s son. Esmer also needed the pt.'s insurance information and she stated they will work on the pt. getting a hospital bed. OUTSIDE SALES PROFESSIONAL and Esmer confirmed the fax number for Dr. Juan J Martin. 12/21/23 4:11 PM - 4:14 PM OUTSIDE SALES PROFESSIONAL called the pt.'s son Italia and stated OUTSIDE SALES PROFESSIONAL spoke to Esmer with [facility] and they are waiting for information back from the Dr. Hi and will request again. OUTSIDE SALES PROFESSIONAL informed the pt.'s son Pauly Mendoza will call him. OUTSIDE SALES PROFESSIONAL stated she received a message from Johana with [employer] that the pt. is being enrolled on [employer]. Italia stated that he needs to get neeeded paperwork to get her approved for [employer]. [facility] Work Phone: 12-21-2023 Miscellaneous Notes SITUATION: spouse and son present during today's visit. patient reports the following changes since the last homecare visit: medications/allergies--None, falls--None. patient reports she's feeling pretty tired today. Patient reported she just got up recently and didn't eat breakfast. She took her medications with yogurt during ST visit. Patient reported feeling nauseated at the end of the visit and ended up vomiting. She reported feeling fine after vomiting. Patient/caregiver instructed to make sure to eat something substantial with medications. They verbalized understanding. Patient's son reported patient hasn't been doing her voice exercises much, but he will help remind and encourage her to complete them. BACKGROUND: Diagnoses (reason for Home Care): Diagnoses (reason for Home Care): G20.A1 (ICD-10-CM) - Parkinson's disease, unspecified whether dyskinesia present, unspecified whether manifestations fluctuate (HCC) Past Medical History: G20.A1 (ICD-10-CM) - Parkinson's disease, unspecified whether dyskinesia present, unspecified whether manifestations fluctuate (HCC) Any one of the comorbidities from the list below may have a deleterious effect on the primary home care diagnosis.- (this is from problem list in snapshot)- .prob ACTIVE PROBLEM LIST Chronic Bilateral Low Back Pain Without Sciatica Other Hyperlipidemia Essential Hypertension, Benign Asthma Osteoporosis Osteoarthrosis Involving Lower Leg Vitamin D Deficiency Cad (Coronary Artery Disease) Gastroesophageal Reflux Disease Without Esophagitis Small Fiber Neuropathy Urge Incontinence Dizziness and Giddiness Obesity, Class II, Bmi 35-39.9 Adjustment Disorder With Mixed Anxiety and Depressed Mood Unsteady Gait Parkinson's disease Weight Loss, Non-Intentional Dysphagia Chronic Gastritis Without Bleeding Cognitive Decline Objective: Patient's performance today: mod cueing to complete: dysphagia treatment, cognitive linguistic skills and voice exercises. ASSESSMENT: Patient demonstrates a need for further skilled SURGICAL SUPPLIES STERILIZER services for dysphagia treatment, cognitive linguistic skills and voice exercises. Plan of care, progress towards goals, and visit frequency reviewed with patient. Patient is making progress towards goals Current Discharge plan: {family support; anticipated discharge date 01/08/24. RECOMMENDATION: Next visit to focus ondysphagia treatment, cognitive linguistic skills and voice exercises; provide whiteboard and dry erase markers for reminder sign. See intervention summary for intervention/education details. documented in this encounter [facility] 12-21-2023 Patient's home Note SITUATION: spouse and son present during today's visit. patient reports the following changes since the last homecare visit: medications/allergies--None, falls--None. patient reports she's feeling pretty tired today. Patient reported she just got up recently and didn't eat breakfast. She took her medications with yogurt during ST visit. Patient reported feeling nauseated at the end of the visit and ended up vomiting. She reported feeling fine after vomiting. Patient/caregiver instructed to make sure to eat something substantial with medications. They verbalized understanding. Patient's son reported patient hasn't been doing her voice exercises much, but he will help remind and encourage her to complete them. BACKGROUND: Diagnoses (reason for Home Care): Diagnoses (reason for Home Care): G20.A1 (ICD-10-CM) - Parkinson's disease, unspecified whether dyskinesia present, unspecified whether manifestations fluctuate (HCC) Past Medical History: G20.A1 (ICD-10-CM) - Parkinson's disease, unspecified whether dyskinesia present, unspecified whether manifestations fluctuate (HCC) Any one of the comorbidities from the list below may have a deleterious effect on the primary home care diagnosis.- (this is from problem list in snapshot)- .prob ACTIVE PROBLEM LIST Chronic Bilateral Low Back Pain Without Sciatica Other Hyperlipidemia Essential Hypertension, Benign Asthma Osteoporosis Osteoarthrosis Involving Lower Leg Vitamin D Deficiency Cad (Coronary Artery Disease) Gastroesophageal Reflux Disease Without Esophagitis Small Fiber Neuropathy Urge Incontinence Dizziness and Giddiness Obesity, Class II, Bmi 35-39.9 Adjustment Disorder With Mixed Anxiety and Depressed Mood Unsteady Gait Parkinson's disease Weight Loss, Non-Intentional Dysphagia Chronic Gastritis Without Bleeding Cognitive Decline Objective: Patient's performance today: mod cueing to complete: dysphagia treatment, cognitive linguistic skills and voice exercises. ASSESSMENT: Patient demonstrates a need for further skilled SURGICAL SUPPLIES STERILIZER services for dysphagia treatment, cognitive linguistic skills and voice exercises. Plan of care, progress towards goals, and visit frequency reviewed with patient. Patient is making progress towards goals Current Discharge plan: {family support; anticipated discharge date 01/08/24. RECOMMENDATION: Next visit to focus ondysphagia treatment, cognitive linguistic skills and voice exercises; provide whiteboard and dry erase markers for reminder sign. See intervention summary for intervention/education details. [facility] Work Phone: 12-14-2023 Telephone encounter Note Phone call placed brief message to contact a nurse, current follow up spot with Gaston Barton needs scheduled with correct provider, NOÉ or Dr. Michell Barraza Parkinson's. Veedat message sent, last logon 11/18/2023. Nadia Desouza LPN [facility] 12-14-2023 Miscellaneous Notes Phone call placed brief message to contact a nurse, current follow up spot with Gaston Barton needs scheduled with correct provider, NOÉ or Dr. Mcihell Barraza Parkinson's. Vrvana message sent, last logon 11/18/2023. Nadia Desouza LPN documented in this encounter [facility] 12-11-2023 Miscellaneous Notes SITUATION: spouse and son (temporarily) present during today's visit. patient and caregiver reports the following changes since the last homecare visit: medications/allergies--None, falls--None. patient admits she didn't complete the recommended voice exercises since this ST last saw her. She reports she has been having increased difficulty feeling phleghmy when she eats. BACKGROUND: Diagnoses (reason for Home Care): Diagnoses (reason for Home Care): G20.A1 (ICD-10-CM) - Parkinson's disease, unspecified whether dyskinesia present, unspecified whether manifestations fluctuate (HCC) Past Medical History: G20.A1 (ICD-10-CM) - Parkinson's disease, unspecified whether dyskinesia present, unspecified whether manifestations fluctuate (HCC) Any one of the comorbidities from the list below may have a deleterious effect on the primary home care diagnosis.- (this is from problem list in snapshot)- .prob ACTIVE PROBLEM LIST Chronic Bilateral Low Back Pain Without Sciatica Other Hyperlipidemia Essential Hypertension, Benign Asthma Osteoporosis Osteoarthrosis Involving Lower Leg Vitamin D Deficiency Cad (Coronary Artery Disease) Gastroesophageal Reflux Disease Without Esophagitis Small Fiber Neuropathy Urge Incontinence Dizziness and Giddiness Obesity, Class II, Bmi 35-39.9 Adjustment Disorder With Mixed Anxiety and Depressed Mood Unsteady Gait Parkinson's disease Weight Loss, Non-Intentional Dysphagia Chronic Gastritis Without Bleeding Cognitive Decline Objective: Patient's performance today: mod cueing to complete: dysphagia treatment, cognitive linguistic skills and voice exercises. ASSESSMENT: Patient demonstrates a need for further skilled SURGICAL SUPPLIES STERILIZER services for dysphagia treatment, cognitive linguistic skills and voice exercises. Plan of care, progress towards goals, and visit frequency reviewed with patient. Patient is making progress towards goals Current Discharge plan: {self-care and family support; anticipated discharge date 01/08/24. RECOMMENDATION: Next visit to focus ondysphagia treatment, cognitive linguistic skills and voice exercises. See intervention summary for intervention/education details. documented in this encounter [facility] 12-11-2023 Patient's home Note SITUATION: spouse and son (temporarily) present during today's visit. patient and caregiver reports the following changes since the last homecare visit: medications/allergies--None, falls--None. patient admits she didn't complete the recommended voice exercises since this ST last saw her. She reports she has been having increased difficulty feeling phleghmy when she eats. BACKGROUND: Diagnoses (reason for Home Care): Diagnoses (reason for Home Care): G20.A1 (ICD-10-CM) - Parkinson's disease, unspecified whether dyskinesia present, unspecified whether manifestations fluctuate (HCC) Past Medical History: G20.A1 (ICD-10-CM) - Parkinson's disease, unspecified whether dyskinesia present, unspecified whether manifestations fluctuate (HCC) Any one of the comorbidities from the list below may have a deleterious effect on the primary home care diagnosis.- (this is from problem list in snapshot)- .prob ACTIVE PROBLEM LIST Chronic Bilateral Low Back Pain Without Sciatica Other Hyperlipidemia Essential Hypertension, Benign Asthma Osteoporosis Osteoarthrosis Involving Lower Leg Vitamin D Deficiency Cad (Coronary Artery Disease) Gastroesophageal Reflux Disease Without Esophagitis Small Fiber Neuropathy Urge Incontinence Dizziness and Giddiness Obesity, Class II, Bmi 35-39.9 Adjustment Disorder With Mixed Anxiety and Depressed Mood Unsteady Gait Parkinson's disease Weight Loss, Non-Intentional Dysphagia Chronic Gastritis Without Bleeding Cognitive Decline Objective: Patient's performance today: mod cueing to complete: dysphagia treatment, cognitive linguistic skills and voice exercises. ASSESSMENT: Patient demonstrates a need for further skilled SURGICAL SUPPLIES STERILIZER services for dysphagia treatment, cognitive linguistic skills and voice exercises. Plan of care, progress towards goals, and visit frequency reviewed with patient. Patient is making progress towards goals Current Discharge plan: {self-care and family support; anticipated discharge date 01/08/24. RECOMMENDATION: Next visit to focus ondysphagia treatment, cognitive linguistic skills and voice exercises. See intervention summary for intervention/education details. [facility] Work Phone: 12-07-2023 Telephone encounter Note Phone call placed spoke to patients son (Italia) listed on chart. Italia reported patient has not had additional stomach, nausea issues, taking Sinemet with food. Concern is taking Sinemet 25-100 mg x 3 daily, patient is sleeping through dose #2, requesting a change in the Sinemet to extended release. Follow up scheduled with Gaston Barton 12/29/2023, placed on wait list. Patients son ( Italia) advised to continue medication Sinemet as prescribed (new Rx sent to [facility], [place] on 10/09/2023). Italia verbalized understanding, agreed with plan of care. Nadia Desouza LPN [facility] 12-07-2023 Miscellaneous Notes Phone call placed spoke to patients son Racheal) listed on chart. Italia reported patient has not had additional stomach, nausea issues, taking Sinemet with food. Concern is taking Sinemet 25-100 mg x 3 daily, patient is sleeping through dose #2, requesting a change in the Sinemet to extended release. Follow up scheduled with [facility] 12/29/2023, placed on wait list. Patients son ( Italia) advised to continue medication Sinemet as prescribed (new Rx sent to [facility], [place] on 10/09/2023). Italia verbalized understanding, agreed with plan of care. Nadia Desouza LPN Agree - please put on wait list. Also please make sure patient not taking med on an empty stomach. If the GI upset is chronic and not directly related to meds then recommend follow up with PCP. Fernando Galarza MD TC to pt son, he states she does take the medication with food and still has the upset stomach. Also states she takes her medication with food. States that she can take the morning and evening dose fine but sleeps a lot during the day and most of the time misses the middle dose. Son looking for a recommendation regarding a long acting med. Destiny Scott LPN Did send [employer] message on 11/14/23 that was not read. Discussed timing of medication and taking with food to avoid nausea, however, would recommend seeing Dr. Galarza in person to reassess and discuss changes to medications. Aiyana Garcia PA-C Pt's son calls in regards to pt's Sinemet dose. Son reports at 11/07/23 OV it was mentioned that pt was not taking medication regularly. It was also mentioned that in the future the dose may be increased or add CR dosing at night. Son reports still having trouble with getting to take medication regularly and is asking if Aiyana Garcia PA-C was able to talk to Dr. Galarza about extended release dosing. Please review and advise. Shira Lawson LPN documented in this encounter [facility] 12-07-2023 Telephone encounter Note 12/07/23 OUTSIDE SALES PROFESSIONAL spoke to Lashanda with [facility] regarding the hospital bed for the patient. She stated that they needed more information why the patient needed the hospital bed. She stated they faxed what information needed on 11/25/23. [facility] phone number [phone] and the fax number [phone]. Thank you for all your help, [facility] Work Phone: 12-07-2023 Miscellaneous Notes 12/07/23 OUTSIDE SALES PROFESSIONAL spoke to Lashanda with [facility] regarding the hospital bed for the patient. She stated that they needed more information why the patient needed the hospital bed. She stated they faxed what information needed on 11/25/23. [employer] phone number [phone] and the fax number [phone]. Thank you for all your help, documented in this encounter [facility] 12-07-2023 Miscellaneous Notes 12/07/23 11:43 AM - 11:46 AM OUTSIDE SALES PROFESSIONAL called the pt.'s son Italia regarding if he had heard from [place] regarding the pt. getting a hospital bed and he stated she has not. OUTSIDE SALES PROFESSIONAL stated she would follow-up on this. RHIANNON asked if [facility] had called to schedule a home assessment. He stated they did and he stated they coming on Monday or Monday of next week. 12/07/23 11:46 AM - 11:50 AM OUTSIDE SALES PROFESSIONAL called [facility] and spoke to Lashanda regarding if they received an order for the pt. to get a hospital bed. She stated that they did and that Gisele was working on it. Lashanda stated they needed more information from the DrBhavin regarding why the pt. needs the hospital bed. She stated that they faxed to the DrBhavin on 11/25/23 requesting needed information. 12/07/[address] Juan J JURADO spoke to Lashanda with [employer] regarding the hospital bed for the patient. She stated that they needed more information why the patient needed the hospital bed. She stated they faxed what information needed on 11/25/23. [employer] phone number [phone] and the fax number [phone]. Thank you for all your help, 12/07/23 11:54 AM - 11:57 AM OUTSIDE SALES PROFESSIONAL called the pt.'s son Italia back regarding OUTSIDE SALES PROFESSIONAL spoke to [facility] [employer] and they received the order for the hospital bed. OUTSIDE SALES PROFESSIONAL stated that they were needing more information and OUTSIDE SALES PROFESSIONAL messaged the regarding this. OUTSIDE SALES PROFESSIONAL asked the pt.'s son how they were managing and he stated they were fine. OUTSIDE SALES PROFESSIONAL informed the pt.'s son to call OUTSIDE SALES PROFESSIONAL with any needs. documented in this encounter [facility] 12-07-2023 Patient's home Note 12/07/23 11:43 AM - 11:46 AM OUTSIDE SALES PROFESSIONAL called the pt.'s son Italia regarding if he had heard from [place] regarding the pt. getting a hospital bed and he stated she has not. OUTSIDE SALES PROFESSIONAL stated she would follow-up on this. OUTSIDE SALES PROFESSIONAL asked if [facility] had called to schedule a home assessment. He stated they did and he stated they coming on Monday or Monday of next week. 12/07/23 11:46 AM - 11:50 AM OUTSIDE SALES PROFESSIONAL called [facility] and spoke to Lashanda regarding if they received an order for the pt. to get a hospital bed. She stated that they did and that Gisele was working on it. Lashanda stated they needed more information from the regarding why the pt. needs the hospital bed. She stated that they faxed to the on 11/25/23 requesting needed information. 12/07/[address] OUTSIDE SALES PROFESSIONAL [address] Juan J CABRALW spoke to Lashanda with [facility] regarding the hospital bed for the patient. She stated that they needed more information why the patient needed the hospital bed. She stated they faxed what information needed on 11/25/23. [facility] phone number [phone] and the fax number [phone]. Thank you for all your help, 12/07/23 11:54 AM - 11:57 AM OUTSIDE SALES PROFESSIONAL called the pt.'s son Italia back regarding OUTSIDE SALES PROFESSIONAL spoke to [place] [employer] and they received the order for the hospital bed. OUTSIDE SALES PROFESSIONAL stated that they were needing more information and OUTSIDE SALES PROFESSIONAL messaged the regarding this. OUTSIDE SALES PROFESSIONAL asked the pt.'s son how they were managing and he stated they were fine. OUTSIDE SALES PROFESSIONAL informed the pt.'s son to call OUTSIDE SALES PROFESSIONAL with any needs. T [facility] Work Phone: 12-06-2023 Telephone encounter Note Agree - please put on wait list. Also please make sure patient not taking med on an empty stomach. If the GI upset is chronic and not directly related to meds then recommend follow up with PCP. Fernando Galarza MD [facility] 12-05-2023 Telephone encounter Note TC to pt son, he states she does take the medication with food and still has the upset stomach. Also states she takes her medication with food. States that she can take the morning and evening dose fine but sleeps a lot during the day and most of the time misses the middle dose. Son looking for a recommendation regarding a long acting med. Destiny Scott LPN [facility] 12-05-2023 Telephone encounter Note Did send [employer] message on 11/14/23 that was not read. Discussed timing of medication and taking with food to avoid nausea, however, would recommend seeing Dr. Galarza in person to reassess and discuss changes to medications. Aiyana Garcia PA-C [facility] 12-05-2023 Telephone encounter Note Faxed Rx signed by provider d/c PT [facility] home care faxed form to [phone] 12/05/2023. Nadia Desouza LPN [facility] 12-05-2023 Miscellaneous Notes Faxed Rx signed by provider d/c PT [facility] home care faxed form to [phone] 12/05/2023. Nadia Desouza LPN documented in this encounter [facility] 12-04-2023 Miscellaneous Notes SITUATION: son present during today's visit. patient reports the following since the last homecare visit: medications/allergies--no changes, no fall. patient reports tired today because she stayed up late watching movies with her son. REports that she hasn't been up long and seh just finished eating breakfast. Pt has not taken her morning meds yet. Excouraged her to go ahead and take her meds as she has not had her sinemet yet . BACKGROUND: Diagnoses (reason for Home Care): PD Weight Bearing/Precaution Changes: no changes ASSESSMENT: Focus of visit: reassessment/discharge Physical therapy discharged: goals achieved. Functional performance at discharge - bed mobility slleps in recliner , transfers independent, ambulation independent and stairs supervision. Plan of care, goals, and discharge reviewed and agreed upon with patient and/or caregiver. RECOMMENDATION: Patient discharged from PT and is active with ST. Instructions to include:home exercise program as directed See intervention summary for intervention/education details. documented in this encounter [facility] 12-04-2023 Patient's home Note SITUATION: son present during today's visit. patient reports the following since the last homecare visit: medications/allergies--no changes, no fall. patient reports tired today because she stayed up late watching movies with her son. REports that she hasn't been up long and seh just finished eating breakfast. Pt has not taken her morning meds yet. Excouraged her to go ahead and take her meds as she has not had her sinemet yet . BACKGROUND: Diagnoses (reason for Home Care): PD Weight Bearing/Precaution Changes: no changes ASSESSMENT: Focus of visit: reassessment/discharge Physical therapy discharged: goals achieved. Functional performance at discharge - bed mobility slleps in recliner , transfers independent, ambulation independent and stairs supervision. Plan of care, goals, and discharge reviewed and agreed upon with patient and/or caregiver. RECOMMENDATION: Patient discharged from PT and is active with ST. Instructions to include:home exercise program as directed See intervention summary for intervention/education details. [facility] Work Phone: 12-04-2023 Telephone encounter Note Pt's son calls in regards to pt's Sinemet dose. Son reports at 11/07/23 OV it was mentioned that pt was not taking medication regularly. It was also mentioned that in the future the dose may be increased or add CR dosing at night. Son reports still having trouble with getting to take medication regularly and is asking if Aiyana Garcia PA-C was able to talk to Dr. Galarza about extended release dosing. Please review and advise. Shira Lawson LPN [facility] 12-01-2023 Miscellaneous Notes SITUATION: son present during today's visit. patient reports the following since the last homecare visit: medications/allergies--no changes, no fall. patient reports tired today but feeling better. . BACKGROUND: Diagnoses (reason for Home Care): PD Weight Bearing/Precaution Changes: no changes ASSESSMENT: Focus of visit Discussed PT DC next week. Patient voiced understanding and agrees w/ DC. Has good understanding of HEP. Recommend patient to use cane for household mobility for safety and to decrease fall risk. Uses walker when having to go out for Dr appointments Plan of care, goals, and visit frequency reviewed and agreed upon with patient and/or caregiver. Current Discharge Plan: independent with home exercise program Anticipate discharge by 12/04/23 RECOMMENDATION: Next visit to focus on PT to see for DC See intervention summary for intervention/education details. documented in this encounter [facility] 11-29-2023 Miscellaneous Notes SITUATION: son present during today's visit. patient reports the following since the last homecare visit: medications/allergies--no changes, no fall. patient reports she has not felt the best the past few days, Im just not up to par.. BACKGROUND: Diagnoses (reason for Home Care): Parkinson's disease, unspecified whether dyskinesia present, unspecified whether manifestations fluctuate (HCC) Weight Bearing/Precaution Changes: no changes ASSESSMENT: Focus of visit performed seated and standing strength and balance exercises w/o reports of increased pain. Encouraged patient to perform HEP at least 1 time/day and to use cane for all household ambulation. Patient voiced understanding and stated sometimes i just forget. Plan of care, goals, and visit frequency reviewed and agreed upon with patient and/or caregiver. Current Discharge Plan: independent with home exercise program Anticipate discharge by 12/04/23 RECOMMENDATION: Next visit to focus on NOMNC See intervention summary for intervention/education details. documented in this encounter [facility] 11-27-2023 Miscellaneous Notes SITUATION: spouse and son present in another room during today's visit. patient reports the following changes since the last homecare visit: medications/allergies--None, falls--None. patient reports he is [place] and has difficulty hearing her. BACKGROUND: Diagnoses (reason for Home Care): Diagnoses (reason for Home Care): G20.A1 (ICD-10-CM) - Parkinson's disease, unspecified whether dyskinesia present, unspecified whether manifestations fluctuate (HCC) Past Medical History: G20.A1 (ICD-10-CM) - Parkinson's disease, unspecified whether dyskinesia present, unspecified whether manifestations fluctuate (HCC) Any one of the comorbidities from the list below may have a deleterious effect on the primary home care diagnosis.- (this is from problem list in snapshot)- .prob ACTIVE PROBLEM LIST Chronic Bilateral Low Back Pain Without Sciatica Other Hyperlipidemia Essential Hypertension, Benign Asthma Osteoporosis Osteoarthrosis Involving Lower Leg Vitamin D Deficiency Cad (Coronary Artery Disease) Gastroesophageal Reflux Disease Without Esophagitis Small Fiber Neuropathy Urge Incontinence Dizziness and Giddiness Obesity, Class II, Bmi 35-39.9 Adjustment Disorder With Mixed Anxiety and Depressed Mood Unsteady Gait Parkinson's disease Weight Loss, Non-Intentional Dysphagia Chronic Gastritis Without Bleeding Cognitive Decline Objective: Patient's performance today: max cueing to complete: dysphagia treatment and voice exercises, min cuing for cognitive skills this date. ASSESSMENT: Patient demonstrates a need for further skilled SURGICAL SUPPLIES STERILIZER services for dysphagia treatment, cognitive linguistic skills and voice exercises. Plan of care, progress towards goals, and visit frequency reviewed with patient. Patient is making progress towards goals Current Discharge plan: {self-care and family support; anticipated discharge date 01/08/24. RECOMMENDATION: Next visit to focus ondysphagia treatment, cognitive linguistic skills and voice exercises. See intervention summary for intervention/education details. documented in this encounter [facility] 11-24-2023 Miscellaneous Notes SITUATION: son present during today's visit. patient reports the following since the last homecare visit: medications/allergies--no changes, no fall. patient reports she is tired today but doing ok. BACKGROUND: Diagnoses (reason for Home Care): PD Weight Bearing/Precaution Changes: no changes ASSESSMENT: Focus of visit progression of HEP to include tband core/lumbar stab ex. denies increased pain after but did report of muscle fatigue Plan of care, goals, and visit frequency reviewed and agreed upon with patient and/or caregiver. Current Discharge Plan: independent with home exercise program Anticipate discharge by 12/04/23 RECOMMENDATION: Next visit to focus on NOMNC See intervention summary for intervention/education details. documented in this encounter [facility] 11-22-2023 Miscellaneous Notes SITUATION: son present during today's visit. patient reports the following since the last homecare visit: medications/allergies--no changes, no fall. patient reports she is doing ok has been doing ex and using ice on back here and there.. BACKGROUND: Diagnoses (reason for Home Care): PD Weight Bearing/Precaution Changes: no changes ASSESSMENT: Focus of visit performed and progressed exercises for HEP. Gait training w/ cane for household mobility. denies increased pain w/exercises. Plan of care, goals, and visit frequency reviewed and agreed upon with patient and/or caregiver. Current Discharge Plan: independent with home exercise program Anticipate discharge by 12/04/23 RECOMMENDATION: Next visit to focus on add tband rows See intervention summary for intervention/education details. documented in this encounter [facility] 11-16-2023 Miscellaneous Notes SITUATION: only patient present during today's visit. patient reports the following since the last homecare visit: medications/allergies--no changes, no fall. patient reports Im tired today.. BACKGROUND: Diagnoses (reason for Home Care): Parkinson's disease Weight Bearing/Precaution Changes: no changes ASSESSMENT: Focus of visit performed and progressed strength and endurance exercises. Denies increased pain but did report of muscle fatigue after. Gait training w/cane for household moblity. Home environment does not allow for proper walker utilization. Patient does use walker when going out of home for Dr appointments Plan of care, goals, and visit frequency reviewed and agreed upon with patient and/or caregiver. Current Discharge Plan: independent with home exercise program Anticipate discharge by 12/04/23 RECOMMENDATION: Next visit to focus on monitor for DOMS and possibly add step overs for balance See intervention summary for intervention/education details. documented in this encounter [facility] 11-15-2023 Miscellaneous Notes SITUATION: son present during today's visit. patient and caregiver reports the following changes since the last homecare visit: medications/allergies--None, falls--None. Patient and caregiver report patient has had swallowing problems in the past years or so. Caregiver reports patient had a MBSS done last year at [facility], but don't currently have any written reports of results. Patient reports she is supposed to avoid certain foods like nuts, seeds, skins and foods that are easier to chew. Patient reports some foods feel like they linger/get stuck on things in her throat; this is happening more noticably lately Caregiver and patient report decreased memory skills and hallucinations increasing. Patient also reports more difficulty with voice/volume. Caregiver also reports that at times she can't get louder than a mumble. BACKGROUND: Diagnoses (reason for Home Care): Diagnoses (reason for Home Care): G20.A1 (ICD-10-CM) - Parkinson's disease, unspecified whether dyskinesia present, unspecified whether manifestations fluctuate (HCC) Past Medical History: G20.A1 (ICD-10-CM) - Parkinson's disease, unspecified whether dyskinesia present, unspecified whether manifestations fluctuate (HCC) Any one of the comorbidities from the list below may have a deleterious effect on the primary home care diagnosis.- (this is from problem list in snapshot)- .prob ACTIVE PROBLEM LIST Chronic Bilateral Low Back Pain Without Sciatica Other Hyperlipidemia Essential Hypertension, Benign Asthma Osteoporosis Osteoarthrosis Involving Lower Leg Vitamin D Deficiency Cad (Coronary Artery Disease) Gastroesophageal Reflux Disease Without Esophagitis Small Fiber Neuropathy Urge Incontinence Dizziness and Giddiness Obesity, Class II, Bmi 35-39.9 Adjustment Disorder With Mixed Anxiety and Depressed Mood Unsteady Gait Parkinson's disease Weight Loss, Non-Intentional Dysphagia Chronic Gastritis Without Bleeding Cognitive Decline Prior level of function: slow decline in overall function; swallowing issues, cognitive decline Diet at current time: regular easy to chew textures and regular liquids Patient stated goal: to eat more easily; stronger voice Objective: Patient presents with:dysphagia, dysphonia and cognitive linguistic deficits (see assessment for full details). ASSESSMENT: Patient demonstrated a need for further skilled ST services for instruction and education related to dysphagia treatment, cognitive linguistic skills and voice exercises. Plan of care, progress towards goals, and visit frequency reviewed/developed (agreement) with patient and caregiver. Current Discharge plan: family support anticipated discharge date 01/08/24. RECOMMENDATION: Recommend speech therapy intervention Other: 3m1, 2m1 to focus on dysphagia treatment, cognitive linguistic skills and voice exercises. See intervention summary for intervention/education details. documented in this encounter [facility] 11-14-2023 Miscellaneous Notes SITUATION: son present during today's visit. patient and caregiver reports the following since the last homecare visit: medications/allergies--no changes, no fall. patient reports she is having alot of back pain and fatigue today. BACKGROUND: Diagnoses (reason for Home Care): PD Weight Bearing/Precaution Changes: no changes ASSESSMENT: Focus of visit performed seated LE exercises for HEP. Gait training w/ cane for household distances. Uses walker for outdoor/longer distances. Denies increased pain w exercises but did report of muscle fatigue Plan of care, goals, and visit frequency reviewed and agreed upon with patient and/or caregiver. Current Discharge Plan: family support Anticipate discharge by TBD RECOMMENDATION: Next visit to focus on standing hams curls See intervention summary for intervention/education details. documented in this encounter [facility] 11-13-2023 Miscellaneous Notes Noted. There has been a delay in service for Home Care SURGICAL SUPPLIES STERILIZER Evaluation for this patient due to schedule conflict. Patient was notified on 11/13/23. Thank you for this referral, please contact us with any questions. Tania Driscoll documented in this encounter [facility] 11-13-2023 Miscellaneous Notes 11/13/23 2:17 PM OUTSIDE SALES PROFESSIONAL received message from [employer] [facility] [place] with [facility] & Dis[facility] - Thank you for your referral on behalf of Breanna Phelps. The person has been screened and she will be contacted for an assessment in the next week to ten days. Thanks, documented in this encounter [facility] 11-07-2023 Instructions Aiyana Garcia PA-C - 11/07/2023 1:50 PM EDT Supplement B12 Vitamin B12 level <400, which indicates deficiency. You may start vitamin B12 supplements [available [id number]] orally, according to the following regimen: Vitamin B12, 2 mg (or 2000 micrograms) by mouth daily x1 month. Take together with folic acid 1 mg daily. THEN maintenance with 1 mg (or 1000 micrograms) daily thereafter. Your PCP may recheck vitamin B12 levels in about 6 months to ensure adequate repletion. Physical therapy and speech therapy Increase water intake to 60 ounces a day, increase caloric intake throughout the day. Follow up in three months Other resources 1. The [facility] Agency of Aging is called [facility]. Their website is [email or web address], and phone number is [phone]. Their Aging and Disability Resource Center phone number is [phone]. 2. [facility] [place] (web site: Caregiver.org) [employer]-- a secure online solution for quality information, support, and resources for family caregivers. Contact: Toll-free number: [phone] documented in this encounter [facility] 11-07-2023 History of Presen t illness Narrative ESTABLISHED PATIENT VISIT Last visit: 10/09/[address] Galarza ASSESSMENT/PLAN: 1. Parkinson's disease, unspecified whether dyskinesia present, unspecified whether manifestations fluctuate (HCC) - ICD9: 332.0, ICD10: G20.A1 (primary diagnosis) Agree with prior evaluations that patient does have both symptoms and exam findings to support the dx of PD. However, patient has not been taking medications (Sinemet) in a regular manner, to know its true impact on disease. Currently taking Sinemet dose of 1.5 tabs about 6 hours apart and thus, taking most of med while sleeping during the night. Also uncertain if tolerating Sinemet 1.5 tabs of 25/100mg as sleeping during the day. Will attempt to lower dose of Sinemet 25/100mg to 1 tablet but have her take doses 4 hours apart with first dose about Noon when she usually wakes. Thus, will be taking at Noon, 4PM and 8PM with usual bedtime of about MN. May increase dose again in the future or add CR dosing at night, but would like to first see reponse to regular dosing. 2. Cognitive decline - ICD9: 294.9, ICD10: R41.89 3. Dementia associated with Parkinson's disease (HCC) - ICD9: 332.0, 294.10, ICD10: G20.A1, F02.80 Patient with obvious cognitive deficits on MOCA as above and subjective history supporting a progressive decline in cognition as well. Likely Dementia secondary to PD with known history. However, no recent metabolic workup and thus will check the following for reversible causes: - VITAMIN B12 BLOOD - TSH BLD - T4 FREE/FREE THYROX In addition, with no recent imaging, feel appropriate to get CT brain to evaluate for other intracranial causes including NPH given PD symptoms. Patient cannot lie flat but should still be able to image brain with some degree of head elevation. She would not be able to get MRI brain. In addition, given history and high suspicion for neurodegenerative process, will start on Namenda 5mg daily and increase to 5mg BID after 1 week. SE and ADRs d/w pt and her son who agrees with plan. 4. RBD (REM behavioral disorder) - ICD9: 327.42, ICD10: G47.52 Concern for significant injury - already with both shoulder and ankle injuries due to falls from bed as above. Will start on melatonin 3mg at bedtime and further increase dose as needed for persistence of symptoms and consider use of benzo if absolutely needed. SE and ADRs d/w pt and son. Explained to son means of safe guarding bedroom to avoid possible injuries secondary to RBD. Fernando Galarza MD CHIEF COMPLAINT: follow up HISTORY OF PRESENT ILLNESS: Breanna Phelps is a 82 year old female, There were no vitals taken for this visit. with a PMH significant for neuropathy, PD, HLD, HTN, CAD, GERD, osteoporosis, weight loss, takotsubo cardiomyopathy. Last saw Dr. Galarza for PD and dementia on 10/09/23 as a new patient. Was seeing Dr. Cr. MoCA was . Changed Sinemet to 1 tablet 4 times a day. Labs and CT brain, started on namenda 5mg bid. B12 is low. Hallucninating on namenda. Patient presents for follow-up with her son and . History primarily given by son. Son notes that about a week after starting Namenda, she was lying in bed at night and started reaching for things 10-12 times, believes she was hallucinating with this. Notes that she would reach for something leaned forward and caused her to almost fall as she continued reaching. Patient notes that she states that she would see something and try to reach for it but felt her vision was off so she continued to lean forward. Did fall out of her chair once doing this but no significant injury other than sprained ankle when coming back up. She lives at home with her son and . Notes that since last appointment she did have 1 fall, son notes that she rolled out of her bed in the middle of the night, patient states that she was sleeping when this happened. No significant injury sustained. Son notes that since stopping the Namenda after being told to stop medications, she is only had a few episodes of reaching for things. Notes that it only happens typically at nighttime, states that she was watching TV with him at 1 to 2 AM and noticed this occurring. Patient does report some occasional dizziness, but no syncope or presyncope. Drinks about 2-3 bottles of water a day, has had decreased appetite since last appointment, notes that her stomach has been bothering her and she started sucralfate. Notes that she has some issues taking this medication along with the Sinemet as the timing overlaps. Son notes that she is sleeping about 18 hours a day total, broken up throughout the day. Patient cannot lie flat so she typically sleeps in a recliner, states that she has chronic back issues preventing her from lying completely flat. Does not do any brain exercises, used to play cards but does not anymore. Is not very physically active, just walks around the house throughout the day but no outward exercise. Has had physical therapy and speech therapy in the past but does not do this anymore. Son notes that since she stopped going to speech therapy about a year ago her voice has gradually worsened. Did note some benefit when she was going to speech therapy. Memory loss is about the same since last appointment. Son notes that she is asking questions multiple times throughout the day, patient states she will walk into a room and forget where she is going there. Patient does not cook, does not drive. ADLs otherwise okay. Patient's instrumentation controls engineer, her son, is also taking care of her /his father. Does get occasional relief when his father's sister visits. However, mostly the patient's son is primarily taking care of the patient and his father. REVIEW OF SYSTEMS GENERAL:No weight loss, malaise or fevers. HEENT:Negative for frequent or significant headaches, No changes in hearing or vision, no nose bleeds or other nasal problems NECK:Negative for lumps, goiter, pain and significant neck swelling RESPIRATORY: Negative for cough, wheezing or shortness of breath. CARDIOVASCULAR: Negative for chest pain, leg swelling or palpitations. GASTROINTESTINAL: Negative for abdominal discomfort, blood in stools or black stools or change in bowel habits GENITOURINARY: No history of dysuria, frequency or incontinence MUSCULOSKELETAL: Negative for joint pain or swelling, back pain or muscle pain. NEUROLOGIC:Negative for focal numbness or weakness, headaches and dizziness or syncope, vision changes, speech/languag changes - EXCEPT that as per HPI above. SKIN:Negative for lesions, rash, and itching. PSYCHIATRIC: Negative for sleep disturbance, mood disorder and recent psychosocial stressors. HEMATOLOGIC/LYMPHATIC/IMMUNOLOGI C:Negative for prolonged bleeding, bruising easily or swollen nodes. ENDOCRINE: Negative for cold or heat intolerance, polyuria, polydipsia and goiter. The remainder of the ROS was reviewed and is negative. LAB/IMAGING: Those performed since patient's last visit have been reviewed. CT brain 10/10/23 IMPRESSION: No acute findings. No acute infarction, intracranial hemorrhage or intracranial mass lesion. Slight progression of mild generalized parenchymal volume loss. MEDICATIONS: carbidopa-levodopa (SINEMET 25-100) 25-100 mg per tablet Take 1 tablet by mouth three times a day. (First dose when wake at noon and then all other dose 4 hours apart - Noon, 4PM and 8PM). melatonin 3 mg tablet Take 1 tablet by mouth daily at bedtime. traMADol (ULTRAM) 50 mg tablet Take 1 tablet by mouth two times a day as needed for pain for up to 90 days. For back pain. Do not start before September 29, 2023. nitroglycerin sublingual (NITROQUICK) 0.4 mg SL tablet Dissolve 1 tablet under the tongue every 5 minutes as needed for chest pain. sucralfate (CARAFATE) 100 mg/mL susp Take 10 mL by mouth every 6 hours. atorvastatin (LIPITOR) 40 mg tablet Take 1 tablet by mouth once daily. DULoxetine (CYMBALTA) 60 mg capsule Take 1 capsule by mouth once daily. oxybutynin ER (DITROPAN XL) 15 mg 24 hr Extended Rel Tab Take 1 tablet by mouth once daily. carvedilol (COREG) 12.5 mg tablet Take 1 tablet by mouth twice daily. acetaminophen (TYLENOL) 500 mg tablet Take 1 tablet by mouth twice daily. folic acid/multivit-min/lutein (CENTRUM SILVER ORAL) Take by mouth once daily. nystatin (MYCOSTATIN) powder Apply 1 application to affected area three times daily. Aspirin 81 mg ORAL Tab Take 1 tablet by mouth once daily. Take with food. memantine (NAMENDA) 5 mg tablet Take 1 tablet by mouth daily for 1 week and then increase to 1 tablet twice daily and continue. (Patient not taking: Reported on 11/07/2023) pantoprazole DR (PROTONIX) 40 mg tablet Take 1 tablet by mouth daily before breakfast. Take on empty stomach, 1/2 hr before meal. (Patient not taking: Reported on 11/07/2023) HISTORIES PAST MEDICAL HISTORY Diagnosis Date Acid reflux Adjustment disorder with depressed mood Adjustment disorder with depressed mood Adjustment disorder with mixed anxiety and depressed mood Anemia Asthma CAD (coronary artery disease) 11/24/2011 Cervical spondylosis with radiculopathy 05/14/2012 CHOLECYSTITIS SEE ALSO GALLBLADDER ACUTE WITH CALCULUS( Without obstruction) 12/11/2008 Chronic gastritis without bleeding 05/29/2023 DERANGEMENT MENISCUS NEC 03/25/2008 Diaphragmatic hernia without mention of obstruction or gangrene Disorder of bone and cartilage, unspecified 06/06/2007 Osteopenia Diverticulosis of colon (without mention of hemorrhage) Dry eyes, bilateral Essential hypertension, benign High cholesterol Hypersomnia 03/17/2014 Dr. Worrell Hypertension Impaired fasting glucose Lumbago Miscarriage NSTEMI (non-ST elevated myocardial infarction) (HCC) 03/25/2021 Obesity, unspecified YAMILETH (obstructive sleep apnea) 04/17/2012 Other and unspecified hyperlipidemia Parkinson's disease (HCC) 04/06/2022 Rheumatic fever Small fiber neuropathy 04/03/2012 Takotsubo cardiomyopathy 03/25/2021 Ulcer disease Unspecified asthma(493.90) 11/24/2005 Unspecified vitamin D deficiency 07/04/2008 Urge incontinence 08/17/2016 Vertigo 12/28/2010 Vitamin B deficiency FAMILY HISTORY Problem Relation Age of Onset other (heart attack) Mother other (TB) Father Diabetes Maternal Grandfather Breast Cancer Sister other (lung cancer) Brother Coronary Artery Disease Brother Genitourinary () Brother hemodialysis Stroke Sister IC aneurysm Alzheimer's Disease Sister Psoriasis Sister SOCIAL HISTORY Social History Tobacco Use Smoking status: Never Smokeless tobacco: Never Vaping Use Vaping Use: Never used Substance Use Topics Alcohol use: No Drug use: No PHYSICAL EXAMINATION BP 118/68 Pulse 90 Resp 16 Wt 55.3 kg (122 lb) SpO2 97% BMI 20.94 kg/m MoCA deferred due to time GENERAL EXAM: General appearance: NAD, pleasant. HEENT: NC/AT, nasal congestion absent, no oral lesions, membranes moist. NECK: No masses, supple. Lungs: Breathing comfortably Extr: Moves all extremities without difficulty Skin: Cool to touch. No rash. NEUROLOGICAL EXAM: General: Awake, alert, oriented x3 (person,place,time), speech fluent, no dysarthria; comprehension, naming, repetition intact. Masked facies and hypophonia CN: PERRL, EOMI and without nystagmus, VFF to confrontation, facial sensation and strength are normal and symmetric, hearing is intact to finger rub bilaterally, palate and tongue movements are intact and symmetric. SCM and trapezius strength normal. Motor: Creased tone in the right upper extremity but normal bulk and strength throughout. Reflexes: Minimally hyperreflexic on the left upper extremity and lower extremity compared to the right. Negative Darya bilaterally Coordination: [id number]-[id number] intact. Slight decrease in rapid alternating movements on the right lower and right upper extremity. Mild resting tremor in the right upper extremity. Sensation: No evidence of neglect. Gait: Narrow gait, but stable. Ambulating with walker but with significantly curved posture. Assessment and Plan: ASSESSMENT/PLAN: 1. Parkinson's disease, unspecified whether dyskinesia present, unspecified whether manifestations fluctuate (HCC) - ICD9: 332.0, ICD10: G20.A1 (primary diagnosis) 2. Cognitive decline - ICD9: 294.9, ICD10: R41.89 3. Dementia associated with Parkinson's disease (HCC) - ICD9: 332.0, 294.10, ICD10: G20.A1, F02.80 Patient was started on Namenda at last appointment, shortly after starting his medication, son noted that she started hallucinating, had roughly 10-12 episodes of this since starting Namenda. After it was stopped, she only had 1 or 2 episodes. Son reports that she starts reaching for things that are not present the patient states that she sees something so she wishes for it but she cannot grab it. Patient's memory stable from previous appointment, unfortunately were not able to perform MoCA today due to time constraints. Patient did have 1 fall since last appointment, fell out of bed while she was sleeping. Son does note that she has a tendency to act out her dreams at night, kicking and punching and reaching for things. Notes that many of her episodes of retching occur at nighttime when she is awake from 1 to 2 AM. No other falls, no dizziness or lightheadedness. Did adjust Sinemet doses as well at last appointment and patient doing well with this with 1 tablet 3 times a day 4 hours apart, starting at noon when she typically eats breakfast. However, patient is starting to have some nausea throughout the day, is unsure if it is related to medications or other GI issues that she has had in the past. Will discuss possibly starting carbidopa with Dr. Galarza to avoid nausea with this medication. Patient and family would be amenable to this. Regarding memory loss and previous Namenda. Did discuss Aricept, but patient having difficulty with losing weight and also has cardiac history. Will avoid this medication. Discussed other conservative measures as well including increasing physical exercise, increasing water intake. Did put referral for physical therapy and speech therapy as patient has had these in the past with benefit. Patient would prefer to do physical therapy at home, will put order in for [facility] at home to see if they are in network. Also encouraged brain exercises, increase physical activity for memory, patient and family agree and understand. 4. RBD (REM behavioral disorder) - ICD9: 327.42, ICD10: G47.52 Did try melatonin, without any significant benefit. Will follow-up with Dr. Galarza to further discuss REM sleep disorder. Did discuss concern of falling out of bed related to REM sleep disturbance and patient and family agree and understand. 5. Dementia without behavioral disturbance (HCC) - ICD9: 294.20, ICD10: F03.90 Patient was found to have low B12, encouraged supplementation with instructions given to patient and family. Patient is taking care of by her son who also takes care of her , his father who requires care. 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 Patient and family agreeable to treatment plan of care at this time, questions were answered. Patient to follow-up in [address] Galarza due to complexity of case. Aiyana Garcia PA-C I spent a total of 55 minutes on the date of the service which included preparing to see the patient, [id number] patient care, completing clinical documentation, obtaining and/or reviewing separately obtained history, performing a medically appropriate examination, counseling and educating the patient/family/caregiver, and ordering medications, tests, or procedures. This document has been created with the use of voice recognition technology. It may contain inaccuracies: (e.g. misspellings, inaccurate syntax or word sense) that have escaped review. documented in this encounter [facility] 10-30-2023 Miscellaneous Notes Pt has been scheduled. Destiny Scott LPN Please assist patient in getting earlier appt with neuro CHRISITNA. Thank you, Fernando Galarza MD Patient son [place] calling he stop the Namenda 5 mg the other day and now mother is not picking at things in the air and hallucinating like she had been. He said mother is more forgetful. Asking if mother needs appt sooner? She has appt mid December scheduled with Rosalinda Barton NP. Please advise documented in this encounter [facility] 10-25-2023 Miscellaneous Notes TC to son who voiced understanding of below. Son will call us next week with an update. Destiny Scott LPN Please have them stop the medication for the rest of the week. If symptoms persist, then likely unrelated to medication and possible hallucinations from progression of disease. Fernando Galarza MD Pt's son calls to report that last evening pt was awake and kept reaching for things that were not there. Son reports it was about 10 times or more in an hour. Son reports he would ask pt what she was reaching for and she would mention something then stop then do it again. Son reports she has done this in her sleep before but yesterday was the first time doing it while awake. Son reports pt started Namenda 5 mg on 10/09. Son is asking if this could be from the medication or if medication needs to be increased. Please review and advise. Shira Lawson LPN documented in this encounter [facility] 10-12-2023 History of Presen t illness Narrative This note was created using [employer]. Subjective Patient presents with: Alejo Breanna Phelps is a 82 year old female here with son and spouse. She fell and was seen in the ER 10/02/23 for chest and left foot contusion. Chest was better. Left foot was better but was internal grinder tender and limited ambulation further. Left knee was also starting to hurt from abnormal gait. Wheelchair was requested. Her hypotension resolved off lisinopril. Her abdominal pain was controlled with addition of sucralfate. She saw Dr. Galarza and memantine was prescribed. Review of Systems Constitutional: Negative for appetite change and unexpected weight change. Respiratory: Negative. Cardiovascular: Negative. Gastrointestinal: Negative. Musculoskeletal: Positive for arthralgias and gait problem. ACTIVE PROBLEM LIST Chronic Bilateral Low Back Pain Without Sciatica Other Hyperlipidemia Essential Hypertension, Benign Asthma Osteoporosis Osteoarthrosis Involving Lower Leg Vitamin D Deficiency Cad (Coronary Artery Disease) Gastroesophageal Reflux Disease Without Esophagitis Small Fiber Neuropathy Urge Incontinence Dizziness and Giddiness Obesity, Class II, Bmi 35-39.9 Adjustment Disorder With Mixed Anxiety and Depressed Mood Unsteady Gait Parkinson's disease Weight Loss, Non-Intentional Dysphagia Chronic Gastritis Without Bleeding Cognitive Decline Current Outpatient Medications Medication Sig carbidopa-levodopa (SINEMET 25-100) 25-100 mg per tablet Take 1 tablet by mouth three times a day. (First dose when wake at noon and then all other dose 4 hours apart - Noon, 4PM and 8PM). melatonin 3 mg tablet Take 1 tablet by mouth daily at bedtime. memantine (NAMENDA) 5 mg tablet Take 1 tablet by mouth daily for 1 week and then increase to 1 tablet twice daily and continue. traMADol (ULTRAM) 50 mg tablet Take 1 tablet by mouth two times a day as needed for pain for up to 90 days. For back pain. Do not start before September 29, 2023. nitroglycerin sublingual (NITROQUICK) 0.4 mg SL tablet Dissolve 1 tablet under the tongue every 5 minutes as needed for chest pain. sucralfate (CARAFATE) 100 mg/mL susp Take 10 mL by mouth every 6 hours. atorvastatin (LIPITOR) 40 mg tablet Take 1 tablet by mouth once daily. pantoprazole DR (PROTONIX) 40 mg tablet Take 1 tablet by mouth daily before breakfast. Take on empty stomach, 1/2 hr before meal. DULoxetine (CYMBALTA) 60 mg capsule Take 1 capsule by mouth once daily. oxybutynin ER (DITROPAN XL) 15 mg 24 hr Extended Rel Tab Take 1 tablet by mouth once daily. carvedilol (COREG) 12.5 mg tablet Take 1 tablet by mouth twice daily. acetaminophen (TYLENOL) 500 mg tablet Take 1 tablet by mouth twice daily. folic acid/multivit-min/lutein (CENTRUM SILVER ORAL) Take by mouth once daily. nystatin (MYCOSTATIN) powder Apply 1 application to affected area three times daily. Aspirin 81 mg ORAL Tab Take 1 tablet by mouth once daily. Take with food. No current facility-administered medications for this visit. Objective BP (P) 124/57 (BP Site: Left Arm, BP Position: Sitting, BP Cuff Size: Large Adult) Pulse (P) 80 Temp (P) 36.9 C (98.4 F) (Temporal) Wt 57.6 kg (127 lb) BMI 21.80 kg/m Physical Exam Constitutional: General: She is not in acute distress. Cardiovascular: Rate and Rhythm: Normal rate and regular rhythm. Pulmonary: Effort: No respiratory distress. Breath sounds: No wheezing or rales. Abdominal: General: There is no distension. Tenderness: There is no abdominal tenderness. Musculoskeletal: Left knee: No swelling or deformity. No tenderness. Right lower leg: No edema. Left lower leg: No edema. Left ankle: Ecchymosis present. No swelling or deformity. Tenderness present over the lateral malleolus and base of 5th metatarsal. Decreased range of motion. Anterior drawer test negative. Neurological: General: No focal deficit present. Mental Status: She is alert. Motor: Weakness present. Comments: On wheelchair. Assessment and Plan 1. Chronic gastritis without bleeding, unspecified gastritis type - ICD9: 535.10, ICD10: K29.50 (primary diagnosis) Improved. Continue medications. 2. Unsteady gait - ICD9: 781.2, ICD10: R26.81 - LIGHTWEIGHT WHEELCHAIR 3. Cognitive decline - ICD9: 294.9, ICD10: R41.89 Memantine started. 4. Sprain of left ankle, unspecified ligament, subsequent encounter - ICD9: V58.89, 845.00, ICD10: S93.402D Resolving. Continue supportive care. 5. Parkinson's disease, unspecified whether dyskinesia present, unspecified whether manifestations fluctuate (HCC) - ICD9: 332.0, ICD10: G20.A1 - LIGHTWEIGHT WHEELCHAIR Juan J Hi MD documented in this encounter [facility] 10-10-2023 History of Presen t illness Narrative Radiology Service Progress Note PATIENT NAME: Breanna Phelps DATE OF SERVICE: October 10, 2023 TIME: 2:09 PM PATIENT IDENTITY VERIFICATION COMPLETED USING TWO (2) IDENTIFIERS: Name and Date of confirmed by patient verbally. FALL SCREENING: Has the patient had 2 falls in the last year or 1 fall with injury or currently using an Ambulatory Assistive Device (Walker, Cane, Wheelchair, Crutches, etc.)? No PATIENT GENDER DATA: Female. status: : No status: NO. PATIENT RELEVANT IMPLANT DATA REVIEWED: Yes PATIENT PRESENTS WITH AN IMPLANTABLE OR ATTACHED AMERICAN HISTORY TEACHER: No RADIOLOGY DEPARTMENT: CT; Exam(s) Completed: Brain PERIPHERAL IV DATA: Not applicable SIGNED BY: RT Evangelist(R) October 10, 2023 2:09 PM documented in this encounter [facility] 10-02-2023 Discharge summary Note Date/Time October 02, 2023 3:38pm [facility] Medical Records Department [address] [place] [address] Emergency Department Summary 10/02/23 MR#: [id number] Acct: [id number] Name: BREANNA PHELPS Rep #:[id number] : 1940 82 From: Vernon Scott MD PCP: Dr. Juan J Hi MD Status:R EG ER Location: ED HPI History of Present Illness Chief Complaint: Lower Extremity Injury Detail of Chief Complaint: Fall 1 week ago and injury last night Informant: patient and family (Patient not a good informant. She has dementia.) Onset/Context/Timing Onset: Yesterday (Foot injury) and Weeks (1 week ago rolled out of bed complaining of right shoulder pain and right rib cage pain) Mechanism/Context: Blunt Injury and Fall Location of pain/injuries: Right shoulder and Left foot Quality of Pain: Dull and Aching Current Severity: Mild Maximum Severity: Severe Worsened by: Weightbearing left foot Relieved by: Nothing Associated Symptoms Associated Symptoms: Positive for Loss of function and Inability to ambulate; Negative for Parasthesias, Weakness or Loss of consciousness Narrative Narrative: Patient is an 82-year-old woman. She presents for 2 reasons. She complained ofshoulder and chest pain due to cough week ago. She rolled out of bed was on thefloor. There was no loss conscious. Is not on an anticoagulant or antithrombotic other than a baby aspirin. She denies paresthesia, anesthesia motors upper or lower extremity. She denies neck pain. She denies headache. Has complaint of left foot pain. She states he cannot put weight on it. The foot injury occurred last evening. She states it got caught. When I asked herto explain I am not able to determine what exactly happened. She was barefoot when this happened. 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) Takotsubo cardiomyopathy Home Medications aspirin 81 mg tablet,delayed release (Adult Low Dose Aspirin) 81 mg PO DAILY Heart health 04/25/18 [History Last Taken 03/24/21] acetaminophen 500 mg tablet 1,000 mg (2 x 500 mg) PO Q6H PRN PRN Pain Score 1-10#0 tabs 04/16/21 [Rx Last Taken Unknown] polyethylene glycol 3350 17 gram/dose oral powder (Miralax) 17 g PO DAILY PRN constipation 07/21/21 [History Last Taken Unknown] duloxetine 30 mg capsule,delayed release 30 mg PO DAILY 02/01/22 [History Last Taken Unknown] carbidopa 25 mg-levodopa 100 mg tablet 1.5 tab PO TID 08/26/22 [History Last Taken Unknown] carvedilol 12.5 mg tablet 12.5 mg PO BID BP 08/26/22 [History Last Taken Unknown] oxybutynin chloride 15 mg tablet,extended release 24 hr 15 mg PO DAILY 08/26/22 [History Last Taken Unknown] nitroglycerin 0.4 mg sublingual tablet 0.4 mg sublingual Q5-15M Heart #25 tabs 08/29/22 [Rx Last Taken Unknown] multivitamin 1 tab PO DAILY 04/07/23 [History Last Taken Unknown] atorvastatin 40 mg tablet 40 mg PO QHS Cholestrol #90 tabs 05/08/23 [Rx Last Taken Unknown] pantoprazole 40 mg tablet,delayed release 40 mg PO Q12H 10/02/23 [History Last Taken Unknown] tramadol 50 mg tablet 50 mg PO Q12H 10/02/23 [History Last Taken Unknown] Allergy/AdvReac Type Severity Reaction Status Date / Time No Known Allergies Allergy Verified 04/07/23 13:40 Family History Mother CAD (coronary artery disease) Myocardial infarction Brother CAD (coronary artery disease) Myocardial infarction Brother Cancer Sister Heart disease Surgical History History of bilateral tubal ligation History of coronary artery stent placement (11/22/11) History of left heart catheterization (03/25/21) Social History household members: spouse and family housing: house Smoking Status: Never smoker alcohol intake: never substance use type: does not use ROS ROS ED Constitutional Constitutional ED: Denies chills, fever(s) or weight loss Eyes Eyes: Denies blurry vision or change in vision ENT ENT ED: Denies ear pain or sore throat Cardiovascular Cardiovascular: Reports chest pain; Denies palpitations or racing heartbeat Respiratory/Chest Respiratory/Chest: Denies cough, dyspnea or dyspnea on exertion Gastrointestinal Gastrointestinal: Denies abdominal pain, melena, nausea or vomiting Musculoskeletal Musculoskeletal: Reports other Details: Right shoulder, anterior right chest andleft foot pain ; Denies arthralgias, back pain, myalgias or neck pain Integumentary Reports other Details: Bruising right upper extremity and left foot Neurologic Neurologic: Reports weakness; Denies headache(s) or paresthesias Hematologic/Lymphatic Hematologic/Lymphatic: Denies easy bleeding or easy bruising EXAM Physical Exam Const Vital Signs: 10/02/23 14:40 Temperature 97.1 F L Temperature Source Temporal Pulse Rate 75 Respiratory Rate 16 Blood Pressure 90/66 Blood Pressure Mean 74 Pulse Ox 100 Oxygen Delivery Method Room Air Positive well nourished and well developed General Appearance ED: well developed and NAD HEENT Reports TM's clear HEENT Narrative: There is no dental trauma. There is no palpable contusions or depressions noted. atraumatic; Negative for tenderness Nose: Negative for septum abnormal Tympanic Membrane ED: Yes TM's clear Eyes PERRL and EOMs intact bilaterally General Eye ED: Yes other Other Details: There is no subconjunctival hemorrhage. Neck full ROM General: Negative for tenderness or other Chest Wall inspection of chest normal and palpation of chest normal Chest Narrative: Patient complains of pain with palpation of right fifth through seventh rib. There is no crepitus subcutaneous air. Breath sounds are symmetric. Resp normal respiratory effort and clear to auscultation bilaterally Cardio regular rhythm, S1 normal heart sound, S2 normal heart sound and no murmurs GI normal to inspection, nondistended, normoactive bowel sounds, non-tender, non-distended and no masses Palpation: soft Back/Spine normal to inspection and no thoracic nor lumbar tenderness Extremity Negative for normal to inspection or full ROM Extremity Narrative: Bruising noted right upper extremity. Is no pain ovation of the clavicle or AC joint. There is no pain the patient of the proximal humerus. She is able to abductor arm past 120 degrees. There is significant soft tissue swelling with hematoma dorsal lateral aspect ofthe left foot. There is pain ovation of the base of the fifth metatarsal. There is no pain ovation of the lateral medial malleolus or calcaneus. There isno pain ovation over the phalanges. There is no pain the patient with a metatarsal bones 1 through 4 General Extremety ED: Yes tenderness; Negative for deformity General Extremity: Negative for deformity Neuro CN's II-XII intact bilaterally, moves all extremities, no focal motor deficits, no sensory deficits noted and No gait normal [place] Coma Scale: document GCS findings Spontaneous Obeys Commands Sensorium / Orientation: Negative for alert Plantar Reflex: Downgoing: bilateral Psych thought process normal Psych Narrative: Affect is flat and mood is depressed. Skin no rashes or lesions noted and no jaundice MDM MDM MDM Narrative Medical decision making narrative: X-ray of the chest was obtained to rule out pneumothorax hemothorax and any obvious rib symptoms occurred over a week ago. In my opinion imaging of the right upper extremity is not indicated since there is no point tenderness and she has full active range of motion. Since she is unable to bear weight significant swelling and tenderness over the base of the fifth metatarsal x-ray of the foot was obtained to evaluate for Anaya versus pseudo Anaya fracture. Radiography Chest X-Ray - ED: 2 View (2 view chest x-ray shows a large bleb right apices. Cardiac silhouette size normal. Perihilar regions unremarkable. There is no obvious pneumothorax, hemothorax or fractured ribs. This is independently reviewed interpreted by me at 1603.) and Read by ED Physician (Three-view x-ray of the foot reveals no fracture. There is soft tissue swelling. There is evidence of osteopenia. Film is suboptimal since it is underpenetrated. This too was independent reviewed interpreted by me at 1603) Discharge Plan Triage Chief Complaint: Lower Extremity Injury ED Provider: Vernon Scott Dx/Rx/DC Orders Clinical Impression: Contusion of right back wall of thorax, Hyperlipidemia, Essential (primary) hypertension, 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 pectoris, Contusion of multiple sites of right shoulder and upper arm, Contusionof left foot, initial encounter, Injury due to fall Instructions: Exercises to Prevent Falls, ED Foot Contusion, ED Contusion, Upper Extremity, ED Chest Wall Contusion Prescriptions: No Action polyethylene glycol 3350 [Miralax] 17 gram/dose powder 17 g PO DAILY PRN (Reason: constipation) duloxetine 30 mg capsule,delayed release(DR/EC) 30 mg PO DAILY carbidopa-levodopa 25-100 mg tablet 1.5 tab PO TID carvedilol 12.5 mg tablet 12.5 mg PO BID oxybutynin chloride 15 mg tablet extended release 24hr 15 mg PO DAILY Patient Comments: TAKE 1 TABLET BY MOUTH ONCE DAILY multivitamin Tablet 1 tab PO DAILY acetaminophen 500 mg Tablet 1,000 mg PO Q6H PRN PRN (Reason: Pain Score 1-10) Qty: 0 0RF tramadol 50 mg tablet 50 mg PO Q12H Patient Comments: Take 1 tablet by mouth two times a day for 30 days. For back pain. pantoprazole 40 mg tablet,delayed release (DR/EC) 40 mg PO Q12H Patient Comments: Take 1 tablet by mouth daily before breakfast. Take on empty stomach, 1/2 hr before meal. aspirin [Adult Low Dose Aspirin] 81 mg tablet,delayed release (DR/EC) 81 mg PO DAILY nitroglycerin 0.4 mg tablet, sublingual 0.4 mg SUBLINGUAL Q5-15M Qty: 25 3RF atorvastatin 40 mg tablet 40 mg PO QHS Qty: 90 3RF Primary Care Provider: Juan J Hi Referrals: Juan J Hi MD [Primary Care Provider] - 1 Week if not improving Activity Restrictions/Additional Instructions: 1. Apply ice to areas of discomfort 6-10 times a day for the next 3 to 5 days 2. Take Tylenol for pain Disposition Disposition: Home, Self Care What to do if you have Problems For any increased pain, shortness of breath, bleeding, nausea or vomiting, chestpain, or any unexpected problems, contact your Primary Care Provider. Call [facility] ([phone]) or report to the closest Emergency Room. Call 911 if necessary. 10/02/23 1606 <Electronically signed by Vernon Scott MD> Cosigner Signature (if applicable): CC: Dr. Juan J Hi MD ~ Signed [facility] Work Phone: 1(543) 128-115202-19-2024 Hospital Discharge instructions Additional Instructions 1. Apply ice to areas of discomfort 6-10 times a day for the next 3 to 5 days 2. [facility] [place] [place] Work Phone: 1(630) 249-198002-01-2024 History of Present illness Narrative* Juan J Hi MD - 09/14/2023 5:55 PM EST This note was created using 5 examples. Subjective Breanna Phelps is a 82 year old female was here with family. She was scheduled with neurology later this month. Parkinson's and cognitive decline were stable. Hypertension was actually low today for unclear reasons. The higher dose of pantoprazole did not impact epigastric pain much. Appetite was still poor. Back pain was lessened by tramadol but activity was not increased since she continued to sleep often. We reviewed her labs. Review of Systems Constitutional: Positive for appetite change and unexpected weight change. Negative for activity change, fatigue and fever. Respiratory: Negative for cough and shortness of breath. Cardiovascular: Negative for chest pain, palpitations and leg swelling. Gastrointestinal: Positive for abdominal pain. Negative for blood in stool, diarrhea, nausea and vomiting. Genitourinary: Negative for difficulty urinating. Musculoskeletal: Positive for back pain and gait problem. Neurological: Negative for dizziness, light-headedness and headaches. ACTIVE PROBLEM LIST Chronic Bilateral Low Back Pain Without Sciatica Other Hyperlipidemia Essential Hypertension, Benign Asthma Osteoporosis Osteoarthrosis Involving Lower Leg Vitamin D Deficiency Cad (Coronary Artery Disease) Gastroesophageal Reflux Disease Without Esophagitis Small Fiber Neuropathy Urge Incontinence Dizziness and Giddiness Obesity, Class II, Bmi 35-39.9 Adjustment Disorder With Mixed Anxiety and Depressed Mood Unsteady Gait Parkinson's disease Weight Loss, Non-Intentional Dysphagia Chronic Gastritis Without Bleeding Cognitive Decline Current Outpatient Medications Medication Sig atorvastatin (LIPITOR) 40 mg tablet Take 1 tablet by mouth once daily. lisinopril (ZESTRIL) 10 mg tablet Take 1 tablet by mouth once daily. carbidopa-levodopa (SINEMET 25-100) 25-100 mg per tablet Take 1.5 tablets by mouth three times a day. Take at mealtimes. pantoprazole DR (PROTONIX) 40 mg tablet Take 1 tablet by mouth daily before breakfast. Take on empty stomach, 1/2 hr before meal. traMADol (ULTRAM) 50 mg tablet Take 1 tablet by mouth two times a day for 30 days. For back pain. DULoxetine (CYMBALTA) 60 mg capsule Take 1 capsule by mouth once daily. oxybutynin ER (DITROPAN XL) 15 mg 24 hr Extended Rel Tab Take 1 tablet by mouth once daily. carvedilol (COREG) 12.5 mg tablet Take 1 tablet by mouth twice daily. acetaminophen (TYLENOL) 500 mg tablet Take 1 tablet by mouth twice daily. folic acid/multivit-min/lutein (CENTRUM SILVER ORAL) Take by mouth once daily. nitroglycerin sublingual (NITROQUICK) 0.4 mg SL tablet Dissolve 1 tablet under the tongue every 5 minutes as needed for Chest Pain. nystatin (MYCOSTATIN) powder Apply 1 application to affected area three times daily. Aspirin 81 mg ORAL Tab Take 1 tablet by mouth once daily. Take with food. No current facility-administered medications for this visit. Objective BP 86/51 (BP Site: Left Arm, BP Position: Sitting, BP Cuff Size: Large Adult) Pulse 85 Temp 36.7 C (98 F) Wt 59.4 kg (131 lb) BMI 22.49 kg/m Physical Exam Constitutional: General: She is not in acute distress. Eyes: Conjunctiva/sclera: Conjunctivae normal. Cardiovascular: Rate and Rhythm: Normal rate and regular rhythm. Heart sounds: No murmur heard. No gallop. Pulmonary: Effort: No respiratory distress. Breath sounds: No wheezing or rales. Abdominal: General: There is no distension. Palpations: Abdomen is soft. There is no mass. Tenderness: There is no abdominal tenderness. Musculoskeletal: General: No tenderness. Right lower leg: No edema. Left lower leg: No edema. Neurological: General: No focal deficit present. Mental Status: She is alert. Mental status is at baseline. Gait: Gait abnormal. Psychiatric: Attention and Perception: Attention normal. Mood and Affect: Affect is flat. Speech: Speech is delayed. Behavior: Behavior is withdrawn. Component Latest Ref Rng & Units 09/06/2023 Protein, Total 6.3 - 8.0 g/dL 7.2 Albumin 3.9 - 4.9 g/dL 4.4 Calcium 8.5 - 10.2 mg/dL 10.3 (H) Bilirubin, Total 0.2 - 1.3 mg/dL 0.7 Alkaline Phosphatase 34 - 123 U/L 59 AST 13 - 35 U/L 27 ALT 7 - 38 U/L 10 Glucose 74 - 99 mg/dL 94 BUN 7 - 21 mg/dL 21 Creatinine 0.58 - 0.96 mg/dL 0.72 Sodium 136 - 144 mmol/L 143 Potassium 3.7 - 5.1 mmol/L 4.5 Chloride 97 - 105 mmol/L 104 CO2 22 - 30 mmol/L 26 Anion Gap 9 - 18 mmol/L 13 eGFR >=60 mL/min/1.73m 84 WBC 3.70 - 11.00 k/uL 6.15 RBC 3.90 - 5.20 m/uL 3.93 Hemoglobin 11.5 - 15.5 g/dL 13.1 Hematocrit 36.0 - 46.0 % 40.1 MCV 80.0 - 100.0 fL 102.0 (H) MCH 26.0 - 34.0 pg 33.3 MCHC 30.5 - 36.0 g/dL 32.7 RDW-CV 11.5 - 15.0 % 11.4 (L) Platelet Count 150 - 400 k/uL 250 MPV 9.0 - 12.7 fL 10.6 Absolute nRBC <0.01 k/uL <0.01 Cholesterol, Total <200 mg/dL 126 Triglyceride <150 mg/dL 56 HDL Cholesterol >39 mg/dL 46 Non HDL Cholesterol <130 mg/dL 80 Fasting Time hrs 12 VLDL Cholesterol <30 mg/dL 11 TC:HDL Ratio <5.10 2.74 LDL Cholesterol <100 mg/dL 69 LDL:HDL Ratio <2.54 1.50 Assessment and Plan 1. Hypotension, unspecified hypotension type - ICD9: 458.9, ICD10: I95.9 (primary diagnosis) - Son will monitor home BP and call back for concerns. 2. Chronic bilateral low back pain with bilateral sciatica - ICD9: 724.2, 724.3, 338.29, ICD10: M54.42, M54.41, G89.29 Chronic low back pain Change to PRN. Goal is to reduce pain and increase activity. - TRAMADOL 50 MG TABLET 3. CAD (coronary artery disease) - ICD9: 414.00, ICD10: I25.10 Routine refill, not used. - NITROGLYCERIN 0.4 MG SUBLINGUAL TABLET 4. Chronic gastritis without bleeding, unspecified gastritis type - ICD9: 535.10, ICD10: K29.50 - Continue PANTOPRAZOLE 40 MG. - SUCRALFATE 100 MG/ML ORAL SUSP UD CUP. Discussed medication dosage, usage, goals of therapy, and side effects. Juan J Hi MD documented [facility] encounter[facility] History of Present illness Narrative* Lenora Licea RT(R) - 08/15/2023 6:10 PM EST Radiology Service Progress Note PATIENT NAME: Breanna Phelps DATE OF SERVICE: August 15, 2023 TIME: 6:35 PM PATIENT IDENTITY VERIFICATION COMPLETED USING TWO (2) IDENTIFIERS: Name and Date of confirmedby patient verbally. FALL SCREENING: Has the patient had 2 falls in the last year or 1 fall with injury or currently using an Ambulatory Assistive Device (Walker, Cane, Wheelchair, Crutches, etc.)? Yes, Patient High Riskfor Falls What interventions were put in place to prevent falls during this visit? Instructed Patient to Callfor Help if Needed, Offered Assistance with Transfers/Clothing, and Increased Observations by Caregivers PATIENT GENDER DATA: Female. status: : No status: NO. PATIENT RELEVANT IMPLANT DATA REVIEWED: Yes RADIOLOGY DEPARTMENT: General X-ray: Exam(s) Completed: Chest X-Ray PERIPHERAL IV DATA: Not applicable SIGNED BY: RT Sharri(R) August 15, 2023 6:35 PM documented in this encounterOur [facility] History of Past illness Narrative* Problem Noted Date Diagnosed Date Resolved Date ACS (acute coronary syndrome) 05/15/2023 05/15/2023 05/31/2023 Anxiety 05/15/2023 05/15/2023 05/31/2023 Chest pain 05/15/2023 05/15/2023 05/31/2023 Mixed anxiety depressive disorder 05/15/2023 023 05/31/2023 Non-ST elevated myocardial infarction 05/15/202309/202205/31/2023 VHD (valvular heart disease) 05/03/2023 05/31/2023 Last Assessment & Plan: Assessment: pending updated echo 05/04/2023 scheduled 03/2021 echo EF 35% Mild MVI Mild TVI Pain of upper abdomen 02/13/20232022 Palpitations 06/10/2022 05/15/2023 05/31/2023 Neck pain 06/02/2022 05/31/2023 Pain in thoracic spine 06/02/202205/31 Tremor 11/25/2021 05/31/2023 Takotsubo cardiomyopathy 03/25/2021 Last Assessment & Plan: Assessment: controlled on rx, last Echo EF 65% 02/2022 echo History of left heart catheterization 03/25/202109/202205/31/2023 Adjustment disorder with depressed mood 10/23/2019 10/01/2020 Obesity, Class I, BMI 30-34.9 02/07/2018 09/19/2019 Dry mouth 08/17/2016 09/14/2018 Chronic nonallergic rhinitis 03/07/2016 09/14/2018 Hypersomnia 03/17/2014 09/29/2015 Overview: Dr. Worrell Primary generalized (osteo)arthritis 07/31/2012 09/14/2018 Overview: Affecting hands and feet Pain in limb 05/14/2012 09/14/2012 Cervical spondylosis with radiculopathy 05/14/2012 09/29/2015 YAMILETH (obstructive sleep apnea) 04/17/2012 03/17/2014 Overview: Per Dr Worrell. Sleep study 04/09/12. Mild. Not on CPAP. 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 11/22/2011 1 05/31/2023 Vertigo 12/28/2010 09/14/2012 Skin infection 01/07/2010 09/14/2012 Derangement of meniscus, not elsewhere classified 03/25/2008 09/14/2012 Sprain of neck 08/10/2007 06/24/2008 Sprain and strain of unspeci fied site of shoulder and upper arm 08/10/2007 06/24/2008 Sprain and strain of unspeci fied site of knee and leg 08/10/2007 09/14/2012 Contusion of unspecified site 08/10/2007 06/24/2008 Impaired fasting glucose Obesity, unspecified 018 documented as of this encounter (statuses as of 09/16/2023) [facility] History of Past illness Narrative* Problem Noted Date Diagnosed Date Resolved Date ACS (acute coronary syndrome) 05/15/2023 05/15/2023 05/31/2023 Anxiety 05/15/2023 05/15/2023 05/31/2023 Chest pain 05/15/2023 05/15/2023 05/31/2023 Mixed anxiety depressive disorder 05/15/2023 023 05/31/2023 Non-ST elevated myocardial infarction 05/15/202309/202205/31/2023 VHD (valvular heart disease) 05/03/2023 05/31/2023 Last Assessment & Plan: Assessment: pending updated echo 05/04/2023 scheduled 03/2021 echo EF 35% Mild MVI Mild TVI Pain of upper abdomen 02/13/20232022 Palpitations 06/10/2022 05/15/2023 05/31/2023 Neck pain 06/02/2022 05/31/2023 Pain in thoracic spine 06/02/202205/31 Tremor 11/25/2021 05/31/2023 Takotsubo cardiomyopathy 03/25/2021 Last Assessment & Plan: Assessment: controlled on rx, last Echo EF 65% 02/2022 echo History of left heart catheterization 03/25/202109/202205/31/2023 Adjustment disorder with depressed mood 10/23/2019 10/01/2020 Obesity, Class I, BMI 30-34.9 02/07/2018 09/19/2019 Dry mouth 08/17/2016 09/14/2018 Chronic nonallergic rhinitis 03/07/2016 09/14/2018 Hypersomnia 03/17/2014 09/29/2015 Overview: Dr. Worrell Primary generalized (osteo)arthritis 07/31/2012 09/14/2018 Overview: Affecting hands and feet Pain in limb 05/14/2012 09/14/2012 Cervical spondylosis with radiculopathy 05/14/2012 09/29/2015 YAMILETH (obstructive sleep apnea) 04/17/2012 03/17/2014 Overview: Per Dr Worrell. Sleep study 04/09/12. Mild. Not on CPAP. 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 11/22/2011 1 05/31/2023 Vertigo 12/28/2010 09/14/2012 Skin infection 01/07/2010 09/14/2012 Derangement of meniscus, not elsewhere classified 03/25/2008 09/14/2012 Sprain of neck 08/10/2007 06/24/2008 Sprain and strain of unspeci fied site of shoulder and upper arm 08/10/2007 06/24/2008 Sprain and strain of unspeci fied site of knee and leg 08/10/2007 09/14/2012 Contusion of unspecified site 08/10/2007 06/24/2008 Impaired fasting glucose Obesity, unspecified 018 documented as of this encounter (statuses as of 10/11/2023) [facility] of Past illness Narrative* Problem Noted Date Diagnosed Date Resolved Date ACS (acute coronary syndrome) 05/15/2023 05/15/2023 05/31/2023 Anxiety 05/15/2023 05/15/2023 05/31/2023 Chest pain 05/15/2023 05/15/2023 05/31/2023 Mixed anxiety depressive disorder 05/15/2023 023 05/31/2023 Non-ST elevated myocardial infarction 05/15/202309/202205/31/2023 VHD (valvular heart disease) 05/03/2023 05/31/2023 Last Assessment & Plan: Assessment: pending updated echo 05/04/2023 scheduled 03/2021 echo EF 35% Mild MVI Mild TVI Pain of upper abdomen 02/13/20232022 Palpitations 06/10/2022 05/15/2023 05/31/2023 Neck pain 06/02/2022 05/31/2023 Pain in thoracic spine 06/02/202205/31 Tremor 11/25/2021 05/31/2023 Takotsubo cardiomyopathy 03/25/2021 Last Assessment & Plan: Assessment: controlled on rx, last Echo EF 65% 02/2022 echo History of left heart catheterization 03/25/202109/202205/31/2023 Adjustment disorder with depressed mood 10/23/2019 10/01/2020 Obesity, Class I, BMI 30-34.9 02/07/2018 09/19/2019 Dry mouth 08/17/2016 09/14/2018 Chronic nonallergic rhinitis 03/07/2016 09/14/2018 Hypersomnia 03/17/2014 09/29/2015 Overview: Dr. Worrell Primary generalized (osteo)arthritis 07/31/2012 09/14/2018 Overview: Affecting hands and feet Pain in limb 05/14/2012 09/14/2012 Cervical spondylosis with radiculopathy 05/14/2012 09/29/2015 YAMILETH (obstructive sleep apnea) 04/17/2012 03/17/2014 Overview: Per Dr Worrell. Sleep study 04/09/12. Mild. Not on CPAP. 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 11/22/2011 1 05/31/2023 Vertigo 12/28/2010 09/14/2012 Skin infection 01/07/2010 09/14/2012 Derangement of meniscus, not elsewhere classified 03/25/2008 09/14/2012 Sprain of neck 08/10/2007 06/24/2008 Sprain and strain of unspeci fied site of shoulder and upper arm 08/10/2007 06/24/2008 Sprain and strain of unspeci fied site of knee and leg 08/10/2007 09/14/2012 Contusion of unspecified site 08/10/2007 06/24/2008 Impaired fasting glucose Obesity, unspecified 018 documented as of this encounter (statuses as of 10/13/2023) [facility] of Past illness Narrative* Problem Noted Date Diagnosed Date Resolved Date ACS (acute coronary syndrome) 05/15/2023 05/15/2023 05/31/2023 Anxiety 05/15/2023 05/15/2023 05/31/2023 Chest pain 05/15/2023 05/15/2023 05/31/2023 Mixed anxiety depressive disorder 05/15/2023 023 05/31/2023 Non-ST elevated myocardial infarction 05/15/202309/202205/31/2023 VHD (valvular heart disease) 05/03/2023 05/31/2023 Last Assessment & Plan: Assessment: pending updated echo 05/04/2023 scheduled 03/2021 echo EF 35% Mild MVI Mild TVI Pain of upper abdomen 02/13/20232022 Palpitations 06/10/2022 05/15/2023 05/31/2023 Neck pain 06/02/2022 05/31/2023 Pain in thoracic spine 06/02/202205/31 Tremor 11/25/2021 05/31/2023 Takotsubo cardiomyopathy 03/25/2021 Last Assessment & Plan: Assessment: controlled on rx, last Echo EF 65% 02/2022 echo History of left heart catheterization 03/25/202109/202205/31/2023 Adjustment disorder with depressed mood 10/23/2019 10/01/2020 Obesity, Class I, BMI 30-34.9 02/07/2018 09/19/2019 Dry mouth 08/17/2016 09/14/2018 Chronic nonallergic rhinitis 03/07/2016 09/14/2018 Hypersomnia 03/17/2014 09/29/2015 Overview: Dr. Worrell Primary generalized (osteo)arthritis 07/31/2012 09/14/2018 Overview: Affecting hands and feet Pain in limb 05/14/2012 09/14/2012 Cervical spondylosis with radiculopathy 05/14/2012 09/29/2015 YAMIELTH (obstructive sleep apnea) 04/17/2012 03/17/2014 Overview: Per Dr Worrell. Sleep study 04/09/12. Mild. Not on CPAP. 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 11/22/2011 1 05/31/2023 Vertigo 12/28/2010 09/14/2012 Skin infection 01/07/2010 09/14/2012 Derangement of meniscus, not elsewhere classified 03/25/2008 09/14/2012 Sprain of neck 08/10/2007 06/24/2008 Sprain and strain of unspeci fied site of shoulder and upper arm 08/10/2007 06/24/2008 Sprain and strain of unspeci fied site of knee and leg 08/10/2007 09/14/2012 Contusion of unspecified site 08/10/2007 06/24/2008 Impaired fasting glucose Obesity, unspecified 018 documented as of this encounter (statuses as of 10/25/2023) [facility]10-02-2023 History of Past illness Narrative* Problem Noted Date Diagnosed Date Resolved Date ACS (acute coronary syndrome) 05/15/2023 05/15/2023 05/31/2023 Anxiety 05/15/2023 05/15/2023 05/31/2023 Chest pain 05/15/2023 05/15/2023 05/31/2023 Mixed anxiety depressive disorder 05/15/2023 023 05/31/2023 Non-ST elevated myocardial infarction 05/15/202309/202205/31/2023 VHD (valvular heart disease) 05/03/2023 05/31/2023 Last Assessment & Plan: Assessment: pending updated echo 05/04/2023 scheduled 03/2021 echo EF 35% Mild MVI Mild TVI Pain of upper abdomen 02/13/20232022 Palpitations 06/10/2022 05/15/2023 05/31/2023 Neck pain 06/02/2022 05/31/2023 Pain in thoracic spine 06/02/202205/31 Tremor 11/25/2021 05/31/2023 Takotsubo cardiomyopathy 03/25/2021 Last Assessment & Plan: Assessment: controlled on rx, last Echo EF 65% 02/2022 echo History of left heart catheterization 03/25/202109/202205/31/2023 Adjustment disorder with depressed mood 10/23/2019 10/01/2020 Obesity, Class I, BMI 30-34.9 02/07/2018 09/19/2019 Dry mouth 08/17/2016 09/14/2018 Chronic nonallergic rhinitis 03/07/2016 09/14/2018 Hypersomnia 03/17/2014 09/29/2015 Overview: Dr. Worrell Primary generalized (osteo)arthritis 07/31/2012 09/14/2018 Overview: Affecting hands and feet Pain in limb 05/14/2012 09/14/2012 Cervical spondylosis with radiculopathy 05/14/2012 09/29/2015 YAMILETH (obstructive sleep apnea) 04/17/2012 03/17/2014 Overview: Per Dr Worrell. Sleep study 04/09/12. Mild. Not on CPAP. 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 11/22/2011 1 05/31/2023 Vertigo 12/28/2010 09/14/2012 Skin infection 01/07/2010 09/14/2012 Derangement of meniscus, not elsewhere classified 03/25/2008 09/14/2012 Sprain of neck 08/10/2007 06/24/2008 Sprain and strain of unspeci fied site of shoulder and upper arm 08/10/2007 06/24/2008 Sprain and strain of unspeci fied site of knee and leg 08/10/2007 09/14/2012 Contusion of unspecified site 08/10/2007 06/24/2008 Impaired fasting glucose Obesity, unspecified 018 documented as of this encounter (statuses as of 10/31/2023) [facility]10-02-2023 History of Past illness Narrative* Problem Noted Date Diagnosed Date Resolved Date ACS (acute coronary syndrome) 05/15/2023 05/15/2023 05/31/2023 Anxiety 05/15/2023 05/15/2023 05/31/2023 Chest pain 05/15/2023 05/15/2023 05/31/2023 Mixed anxiety depressive disorder 05/15/2023 023 05/31/2023 Non-ST elevated myocardial infarction 05/15/202309/202205/31/2023 VHD (valvular heart disease) 05/03/2023 05/31/2023 Last Assessment & Plan: Assessment: pending updated echo 05/04/2023 scheduled 03/2021 echo EF 35% Mild MVI Mild TVI Pain of upper abdomen 02/13/20232022 Palpitations 06/10/2022 05/15/2023 05/31/2023 Neck pain 06/02/2022 05/31/2023 Pain in thoracic spine 06/02/202205/31 Tremor 11/25/2021 05/31/2023 Takotsubo cardiomyopathy 03/25/2021 Last Assessment & Plan: Assessment: controlled on rx, last Echo EF 65% 02/2022 echo History of left heart catheterization 03/25/202109/202205/31/2023 Adjustment disorder with depressed mood 10/23/2019 10/01/2020 Obesity, Class I, BMI 30-34.9 02/07/2018 09/19/2019 Dry mouth 08/17/2016 09/14/2018 Chronic nonallergic rhinitis 03/07/2016 09/14/2018 Hypersomnia 03/17/2014 09/29/2015 Overview: Dr. Worrell Primary generalized (osteo)arthritis 07/31/2012 09/14/2018 Overview: Affecting hands and feet Pain in limb 05/14/2012 09/14/2012 Cervical spondylosis with radiculopathy 05/14/2012 09/29/2015 YAMILETH (obstructive sleep apnea) 04/17/2012 03/17/2014 Overview: Per Dr Worrell. Sleep study 04/09/12. Mild. Not on CPAP. 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 11/22/2011 1 05/31/2023 Vertigo 12/28/2010 09/14/2012 Skin infection 01/07/2010 09/14/2012 Derangement of meniscus, not elsewhere classified 03/25/2008 09/14/2012 Sprain of neck 08/10/2007 06/24/2008 Sprain and strain of unspeci fied site of shoulder and upper arm 08/10/2007 06/24/2008 Sprain and strain of unspeci fied site of knee and leg 08/10/2007 09/14/2012 Contusion of unspecified site 08/10/2007 06/24/2008 Impaired fasting glucose Obesity, unspecified 018 documented as of this encounter (statuses as of 11/07/2023) [facility]10-02-2023 History of Past illness Narrative* Problem Noted Date Diagnosed Date Resolved Date ACS (acute coronary syndrome) 05/15/2023 05/15/2023 05/31/2023 Anxiety 05/15/2023 05/15/2023 05/31/2023 Chest pain 05/15/2023 05/15/2023 05/31/2023 Mixed anxiety depressive disorder 05/15/2023 023 05/31/2023 Non-ST elevated myocardial infarction 05/15/202309/202205/31/2023 VHD (valvular heart disease) 05/03/2023 05/31/2023 Last Assessment & Plan: Assessment: pending updated echo 05/04/2023 scheduled 03/2021 echo EF 35% Mild MVI Mild TVI Pain of upper abdomen 02/13/20232022 Palpitations 06/10/2022 05/15/2023 05/31/2023 Neck pain 06/02/2022 05/31/2023 Pain in thoracic spine 06/02/202205/31 Tremor 11/25/2021 05/31/2023 Takotsubo cardiomyopathy 03/25/2021 Last Assessment & Plan: Assessment: controlled on rx, last Echo EF 65% 02/2022 echo History of left heart catheterization 03/25/202109/202205/31/2023 Adjustment disorder with depressed mood 10/23/2019 10/01/2020 Obesity, Class I, BMI 30-34.9 02/07/2018 09/19/2019 Dry mouth 08/17/2016 09/14/2018 Chronic nonallergic rhinitis 03/07/2016 09/14/2018 Hypersomnia 03/17/2014 09/29/2015 Overview: Dr. Worrell Primary generalized (osteo)arthritis 07/31/2012 09/14/2018 Overview: Affecting hands and feet Pain in limb 05/14/2012 09/14/2012 Cervical spondylosis with radiculopathy 05/14/2012 09/29/2015 YAMILETH (obstructive sleep apnea) 04/17/2012 03/17/2014 Overview: Per Dr Worrell. Sleep study 04/09/12. Mild. Not on CPAP. 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 11/22/2011 1 05/31/2023 Vertigo 12/28/2010 09/14/2012 Skin infection 01/07/2010 09/14/2012 Derangement of meniscus, not elsewhere classified 03/25/2008 09/14/2012 Sprain of neck 08/10/2007 06/24/2008 Sprain and strain of unspeci fied site of shoulder and upper arm 08/10/2007 06/24/2008 Sprain and strain of unspeci fied site of knee and leg 08/10/2007 09/14/2012 Contusion of unspecified site 08/10/2007 06/24/2008 Impaired fasting glucose Obesity, unspecified 018 documented as of this encounter (statuses as of 11/14/2023) [facility]10-02-2023 History of Past illness Narrative* Problem Noted Date Diagnosed Date Resolved Date ACS (acute coronary syndrome) 05/15/2023 05/15/2023 05/31/2023 Anxiety 05/15/2023 05/15/2023 05/31/2023 Chest pain 05/15/2023 05/15/2023 05/31/2023 Mixed anxiety depressive disorder 05/15/2023 023 05/31/2023 Non-ST elevated myocardial infarction 05/15/202309/202205/31/2023 VHD (valvular heart disease) 05/03/2023 05/31/2023 Last Assessment & Plan: Assessment: pending updated echo 05/04/2023 scheduled 03/2021 echo EF 35% Mild MVI Mild TVI Pain of upper abdomen 02/13/20232022 Palpitations 06/10/2022 05/15/2023 05/31/2023 Neck pain 06/02/2022 05/31/2023 Pain in thoracic spine 06/02/202205/31 Tremor 11/25/2021 05/31/2023 Takotsubo cardiomyopathy 03/25/2021 Last Assessment & Plan: Assessment: controlled on rx, last Echo EF 65% 02/2022 echo History of left heart catheterization 03/25/202109/202205/31/2023 Adjustment disorder with depressed mood 10/23/2019 10/01/2020 Obesity, Class I, BMI 30-34.9 02/07/2018 09/19/2019 Dry mouth 08/17/2016 09/14/2018 Chronic nonallergic rhinitis 03/07/2016 09/14/2018 Hypersomnia 03/17/2014 09/29/2015 Overview: Dr. Worrell Primary generalized (osteo)arthritis 07/31/2012 09/14/2018 Overview: Affecting hands and feet Pain in limb 05/14/2012 09/14/2012 Cervical spondylosis with radiculopathy 05/14/2012 09/29/2015 YAMILETH (obstructive sleep apnea) 04/17/2012 03/17/2014 Overview: Per Dr Worrell. Sleep study 04/09/12. Mild. Not on CPAP. 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 11/22/2011 1 05/31/2023 Vertigo 12/28/2010 09/14/2012 Skin infection 01/07/2010 09/14/2012 Derangement of meniscus, not elsewhere classified 03/25/2008 09/14/2012 Sprain of neck 08/10/2007 06/24/2008 Sprain and strain of unspeci fied site of shoulder and upper arm 08/10/2007 06/24/2008 Sprain and strain of unspeci fied site of knee and leg 08/10/2007 09/14/2012 Contusion of unspecified site 08/10/2007 06/24/2008 Impaired fasting glucose Obesity, unspecified 018 documented as of this encounter (statuses as of 11/14/2023) [facility]10-02-2023 History of Past illness Narrative* Problem Noted Date Diagnosed Date Resolved Date ACS (acute coronary syndrome) 05/15/2023 05/15/2023 05/31/2023 Anxiety 05/15/2023 05/15/2023 05/31/2023 Chest pain 05/15/2023 05/15/2023 05/31/2023 Mixed anxiety depressive disorder 05/15/2023 023 05/31/2023 Non-ST elevated myocardial infarction 05/15/202309/202205/31/2023 VHD (valvular heart disease) 05/03/2023 05/31/2023 Last Assessment & Plan: Assessment: pending updated echo 05/04/2023 scheduled 03/2021 echo EF 35% Mild MVI Mild TVI Pain of upper abdomen 02/13/20232022 Palpitations 06/10/2022 05/15/2023 05/31/2023 Neck pain 06/02/2022 05/31/2023 Pain in thoracic spine 06/02/202205/31 Tremor 11/25/2021 05/31/2023 Takotsubo cardiomyopathy 03/25/2021 Last Assessment & Plan: Assessment: controlled on rx, last Echo EF 65% 02/2022 echo History of left heart catheterization 03/25/202109/202205/31/2023 Adjustment disorder with depressed mood 10/23/2019 10/01/2020 Obesity, Class I, BMI 30-34.9 02/07/2018 09/19/2019 Dry mouth 08/17/2016 09/14/2018 Chronic nonallergic rhinitis 03/07/2016 09/14/2018 Hypersomnia 03/17/2014 09/29/2015 Overview: Dr. Worrell Primary generalized (osteo)arthritis 07/31/2012 09/14/2018 Overview: Affecting hands and feet Pain in limb 05/14/2012 09/14/2012 Cervical spondylosis with radiculopathy 05/14/2012 09/29/2015 YAMILETH (obstructive sleep apnea) 04/17/2012 03/17/2014 Overview: Per Dr Worrell. Sleep study 04/09/12. Mild. Not on CPAP. 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 11/22/2011 1 05/31/2023 Vertigo 12/28/2010 09/14/2012 Skin infection 01/07/2010 09/14/2012 Derangement of meniscus, not elsewhere classified 03/25/2008 09/14/2012 Sprain of neck 08/10/2007 06/24/2008 Sprain and strain of unspeci fied site of shoulder and upper arm 08/10/2007 06/24/2008 Sprain and strain of unspeci fied site of knee and leg 08/10/2007 09/14/2012 Contusion of unspecified site 08/10/2007 06/24/2008 Impaired fasting glucose Obesity, unspecified 018 documented as of this encounter (statuses as of 11/16/2023) [facility]10-02-2023 History of Past illness Narrative* Problem Noted Date Diagnosed Date Resolved Date ACS (acute coronary syndrome) 05/15/2023 05/15/2023 05/31/2023 Anxiety 05/15/2023 05/15/2023 05/31/2023 Chest pain 05/15/2023 05/15/2023 05/31/2023 Mixed anxiety depressive disorder 05/15/2023 023 05/31/2023 Non-ST elevated myocardial infarction 05/15/202309/202205/31/2023 VHD (valvular heart disease) 05/03/2023 05/31/2023 Last Assessment & Plan: Assessment: pending updated echo 05/04/2023 scheduled 03/2021 echo EF 35% Mild MVI Mild TVI Pain of upper abdomen 02/13/20232022 Palpitations 06/10/2022 05/15/2023 05/31/2023 Neck pain 06/02/2022 05/31/2023 Pain in thoracic spine 06/02/202205/31 Tremor 11/25/2021 05/31/2023 Takotsubo cardiomyopathy 03/25/2021 Last Assessment & Plan: Assessment: controlled on rx, last Echo EF 65% 02/2022 echo History of left heart catheterization 03/25/202109/202205/31/2023 Adjustment disorder with depressed mood 10/23/2019 10/01/2020 Obesity, Class I, BMI 30-34.9 02/07/2018 09/19/2019 Dry mouth 08/17/2016 09/14/2018 Chronic nonallergic rhinitis 03/07/2016 09/14/2018 Hypersomnia 03/17/2014 09/29/2015 Overview: Dr. Worrell Primary generalized (osteo)arthritis 07/31/2012 09/14/2018 Overview: Affecting hands and feet Pain in limb 05/14/2012 09/14/2012 Cervical spondylosis with radiculopathy 05/14/2012 09/29/2015 YAMILETH (obstructive sleep apnea) 04/17/2012 03/17/2014 Overview: Per Dr Worrell. Sleep study 04/09/12. Mild. Not on CPAP. 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 11/22/2011 1 05/31/2023 Vertigo 12/28/2010 09/14/2012 Skin infection 01/07/2010 09/14/2012 Derangement of meniscus, not elsewhere classified 03/25/2008 09/14/2012 Sprain of neck 08/10/2007 06/24/2008 Sprain and strain of unspeci fied site of shoulder and upper arm 08/10/2007 06/24/2008 Sprain and strain of unspeci fied site of knee and leg 08/10/2007 09/14/2012 Contusion of unspecified site 08/10/2007 06/24/2008 Impaired fasting glucose Obesity, unspecified 018 documented as of this encounter (statuses as of 11/17/2023) [facility]10-02-2023 History of Past illness Narrative* Problem Noted Date Diagnosed Date Resolved Date ACS (acute coronary syndrome) 05/15/2023 05/15/2023 05/31/2023 Anxiety 05/15/2023 05/15/2023 05/31/2023 Chest pain 05/15/2023 05/15/2023 05/31/2023 Mixed anxiety depressive disorder 05/15/2023 023 05/31/2023 Non-ST elevated myocardial infarction 05/15/202309/202205/31/2023 VHD (valvular heart disease) 05/03/2023 05/31/2023 Last Assessment & Plan: Assessment: pending updated echo 05/04/2023 scheduled 03/2021 echo EF 35% Mild MVI Mild TVI Pain of upper abdomen 02/13/20232022 Palpitations 06/10/2022 05/15/2023 05/31/2023 Neck pain 06/02/2022 05/31/2023 Pain in thoracic spine 06/02/202205/31 Tremor 11/25/2021 05/31/2023 Takotsubo cardiomyopathy 03/25/2021 Last Assessment & Plan: Assessment: controlled on rx, last Echo EF 65% 02/2022 echo History of left heart catheterization 03/25/202109/202205/31/2023 Adjustment disorder with depressed mood 10/23/2019 10/01/2020 Obesity, Class I, BMI 30-34.9 02/07/2018 09/19/2019 Dry mouth 08/17/2016 09/14/2018 Chronic nonallergic rhinitis 03/07/2016 09/14/2018 Hypersomnia 03/17/2014 09/29/2015 Overview: Dr. Worrell Primary generalized (osteo)arthritis 07/31/2012 09/14/2018 Overview: Affecting hands and feet Pain in limb 05/14/2012 09/14/2012 Cervical spondylosis with radiculopathy 05/14/2012 09/29/2015 YAMILETH (obstructive sleep apnea) 04/17/2012 03/17/2014 Overview: Per Dr Worrell. Sleep study 04/09/12. Mild. Not on CPAP. 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 11/22/2011 1 05/31/2023 Vertigo 12/28/2010 09/14/2012 Skin infection 01/07/2010 09/14/2012 Derangement of meniscus, not elsewhere classified 03/25/2008 09/14/2012 Sprain of neck 08/10/2007 06/24/2008 Sprain and strain of unspeci fied site of shoulder and upper arm 08/10/2007 06/24/2008 Sprain and strain of unspeci fied site of knee and leg 08/10/2007 09/14/2012 Contusion of unspecified site 08/10/2007 06/24/2008 Impaired fasting glucose Obesity, unspecified 018 documented as of this encounter (statuses as of 11/23/2023) [facility]10-02-2023 History of Past illness Narrative* Problem Noted Date Diagnosed Date Resolved Date ACS (acute coronary syndrome) 05/15/2023 05/15/2023 05/31/2023 Anxiety 05/15/2023 05/15/2023 05/31/2023 Chest pain 05/15/2023 05/15/2023 05/31/2023 Mixed anxiety depressive disorder 05/15/2023 023 05/31/2023 Non-ST elevated myocardial infarction 05/15/202309/202205/31/2023 VHD (valvular heart disease) 05/03/2023 05/31/2023 Last Assessment & Plan: Assessment: pending updated echo 05/04/2023 scheduled 03/2021 echo EF 35% Mild MVI Mild TVI Pain of upper abdomen 02/13/20232022 Palpitations 06/10/2022 05/15/2023 05/31/2023 Neck pain 06/02/2022 05/31/2023 Pain in thoracic spine 06/02/202205/31 Tremor 11/25/2021 05/31/2023 Takotsubo cardiomyopathy 03/25/2021 Last Assessment & Plan: Assessment: controlled on rx, last Echo EF 65% 02/2022 echo History of left heart catheterization 03/25/202109/202205/31/2023 Adjustment disorder with depressed mood 10/23/2019 10/01/2020 Obesity, Class I, BMI 30-34.9 02/07/2018 09/19/2019 Dry mouth 08/17/2016 09/14/2018 Chronic nonallergic rhinitis 03/07/2016 09/14/2018 Hypersomnia 03/17/2014 09/29/2015 Overview: Dr. Worrell Primary generalized (osteo)arthritis 07/31/2012 09/14/2018 Overview: Affecting hands and feet Pain in limb 05/14/2012 09/14/2012 Cervical spondylosis with radiculopathy 05/14/2012 09/29/2015 YAMILETH (obstructive sleep apnea) 04/17/2012 03/17/2014 Overview: Per Dr Worrell. Sleep study 04/09/12. Mild. Not on CPAP. 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 11/22/2011 1 05/31/2023 Vertigo 12/28/2010 09/14/2012 Skin infection 01/07/2010 09/14/2012 Derangement of meniscus, not elsewhere classified 03/25/2008 09/14/2012 Sprain of neck 08/10/2007 06/24/2008 Sprain and strain of unspeci fied site of shoulder and upper arm 08/10/2007 06/24/2008 Sprain and strain of unspeci fied site of knee and leg 08/10/2007 09/14/2012 Contusion of unspecified site 08/10/2007 06/24/2008 Impaired fasting glucose Obesity, unspecified 018 documented as of this encounter (statuses as of 11/24/2023) [facility]10-02-2023 History of Past illness Narrative* Problem Noted Date Diagnosed Date Resolved Date ACS (acute coronary syndrome) 05/15/2023 05/15/2023 05/31/2023 Anxiety 05/15/2023 05/15/2023 05/31/2023 Chest pain 05/15/2023 05/15/2023 05/31/2023 Mixed anxiety depressive disorder 05/15/2023 023 05/31/2023 Non-ST elevated myocardial infarction 05/15/202309/202205/31/2023 VHD (valvular heart disease) 05/03/2023 05/31/2023 Last Assessment & Plan: Assessment: pending updated echo 05/04/2023 scheduled 03/2021 echo EF 35% Mild MVI Mild TVI Pain of upper abdomen 02/13/20232022 Palpitations 06/10/2022 05/15/2023 05/31/2023 Neck pain 06/02/2022 05/31/2023 Pain in thoracic spine 06/02/202205/31 Tremor 11/25/2021 05/31/2023 Takotsubo cardiomyopathy 03/25/2021 Last Assessment & Plan: Assessment: controlled on rx, last Echo EF 65% 02/2022 echo History of left heart catheterization 03/25/202109/202205/31/2023 Adjustment disorder with depressed mood 10/23/2019 10/01/2020 Obesity, Class I, BMI 30-34.9 02/07/2018 09/19/2019 Dry mouth 08/17/2016 09/14/2018 Chronic nonallergic rhinitis 03/07/2016 09/14/2018 Hypersomnia 03/17/2014 09/29/2015 Overview: Dr. Worrell Primary generalized (osteo)arthritis 07/31/2012 09/14/2018 Overview: Affecting hands and feet Pain in limb 05/14/2012 09/14/2012 Cervical spondylosis with radiculopathy 05/14/2012 09/29/2015 YAMILETH (obstructive sleep apnea) 04/17/2012 03/17/2014 Overview: Per Dr Worrell. Sleep study 04/09/12. Mild. Not on CPAP. 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 11/22/2011 1 05/31/2023 Vertigo 12/28/2010 09/14/2012 Skin infection 01/07/2010 09/14/2012 Derangement of meniscus, not elsewhere classified 03/25/2008 09/14/2012 Sprain of neck 08/10/2007 06/24/2008 Sprain and strain of unspeci fied site of shoulder and upper arm 08/10/2007 06/24/2008 Sprain and strain of unspeci fied site of knee and leg 08/10/2007 09/14/2012 Contusion of unspecified site 08/10/2007 06/24/2008 Impaired fasting glucose Obesity, unspecified 018 documented as of this encounter (statuses as of 11/28/2023) [facility]10-02-2023 History of Past illness Narrative* Problem Noted Date Diagnosed Date Resolved Date ACS (acute coronary syndrome) 05/15/2023 05/15/2023 05/31/2023 Anxiety 05/15/2023 05/15/2023 05/31/2023 Chest pain 05/15/2023 05/15/2023 05/31/2023 Mixed anxiety depressive disorder 05/15/2023 023 05/31/2023 Non-ST elevated myocardial infarction 05/15/202309/202205/31/2023 VHD (valvular heart disease) 05/03/2023 05/31/2023 Last Assessment & Plan: Assessment: pending updated echo 05/04/2023 scheduled 03/2021 echo EF 35% Mild MVI Mild TVI Pain of upper abdomen 02/13/20232022 Palpitations 06/10/2022 05/15/2023 05/31/2023 Neck pain 06/02/2022 05/31/2023 Pain in thoracic spine 06/02/202205/31 Tremor 11/25/2021 05/31/2023 Takotsubo cardiomyopathy 03/25/2021 Last Assessment & Plan: Assessment: controlled on rx, last Echo EF 65% 02/2022 echo History of left heart catheterization 03/25/202109/202205/31/2023 Adjustment disorder with depressed mood 10/23/2019 10/01/2020 Obesity, Class I, BMI 30-34.9 02/07/2018 09/19/2019 Dry mouth 08/17/2016 09/14/2018 Chronic nonallergic rhinitis 03/07/2016 09/14/2018 Hypersomnia 03/17/2014 09/29/2015 Overview: Dr. Worrell Primary generalized (osteo)arthritis 07/31/2012 09/14/2018 Overview: Affecting hands and feet Pain in limb 05/14/2012 09/14/2012 Cervical spondylosis with radiculopathy 05/14/2012 09/29/2015 YAMILETH (obstructive sleep apnea) 04/17/2012 03/17/2014 Overview: Per Dr Worrell. Sleep study 04/09/12. Mild. Not on CPAP. 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 11/22/2011 1 05/31/2023 Vertigo 12/28/2010 09/14/2012 Skin infection 01/07/2010 09/14/2012 Derangement of meniscus, not elsewhere classified 03/25/2008 09/14/2012 Sprain of neck 08/10/2007 06/24/2008 Sprain and strain of unspeci fied site of shoulder and upper arm 08/10/2007 06/24/2008 Sprain and strain of unspeci fied site of knee and leg 08/10/2007 09/14/2012 Contusion of unspecified site 08/10/2007 06/24/2008 Impaired fasting glucose Obesity, unspecified 018 documented as of this encounter (statuses as of 11/30/2023) [facility] History of Past illness Narrative* Problem Noted Date Diagnosed Date Resolved Date ACS (acute coronary syndrome) 05/15/2023 05/15/2023 05/31/2023 Anxiety 05/15/2023 05/15/2023 05/31/2023 Chest pain 05/15/2023 05/15/2023 05/31/2023 Mixed anxiety depressive disorder 05/15/2023 023 05/31/2023 Non-ST elevated myocardial infarction 05/15/202309/202205/31/2023 VHD (valvular heart disease) 05/03/2023 05/31/2023 Last Assessment & Plan: Assessment: pending updated echo 05/04/2023 scheduled 03/2021 echo EF 35% Mild MVI Mild TVI Pain of upper abdomen 02/13/20232022 Palpitations 06/10/2022 05/15/2023 05/31/2023 Neck pain 06/02/2022 05/31/2023 Pain in thoracic spine 06/02/202205/31 Tremor 11/25/2021 05/31/2023 Takotsubo cardiomyopathy 03/25/2021 Last Assessment & Plan: Assessment: controlled on rx, last Echo EF 65% 02/2022 echo History of left heart catheterization 03/25/202109/202205/31/2023 Adjustment disorder with depressed mood 10/23/2019 10/01/2020 Obesity, Class I, BMI 30-34.9 02/07/2018 09/19/2019 Dry mouth 08/17/2016 09/14/2018 Chronic nonallergic rhinitis 03/07/2016 09/14/2018 Hypersomnia 03/17/2014 09/29/2015 Overview: Dr. Worrell Primary generalized (osteo)arthritis 07/31/2012 09/14/2018 Overview: Affecting hands and feet Pain in limb 05/14/2012 09/14/2012 Cervical spondylosis with radiculopathy 05/14/2012 09/29/2015 YAMILETH (obstructive sleep apnea) 04/17/2012 03/17/2014 Overview: Per Dr Worrell. Sleep study 04/09/12. Mild. Not on CPAP. 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 11/22/2011 1 05/31/2023 Vertigo 12/28/2010 09/14/2012 Skin infection 01/07/2010 09/14/2012 Derangement of meniscus, not elsewhere classified 03/25/2008 09/14/2012 Sprain of neck 08/10/2007 06/24/2008 Sprain and strain of unspeci fied site of shoulder and upper arm 08/10/2007 06/24/2008 Sprain and strain of unspeci fied site of knee and leg 08/10/2007 09/14/2012 Contusion of unspecified site 08/10/2007 06/24/2008 Impaired fasting glucose Obesity, unspecified 018 documented as of this encounter (statuses as of 12/01/2023) [facility] Miscellaneous Notes* Telephone Encounter - Yvrose Peterson RN - 05/08/2023 4:18 PM EDT GI Pre-Procedure Spoke with patient: Yes Confirmed date scheduled and patient report time: Yes Procedure Planned:Esophagogastroduodenoscopy(EGD) for control of bleeding,dilation(any means),imaging,tube placement Is the patient on blood thinners?no Procedure Instructions given to patient: Yes, and they verbalized their understanding of instructions given Patient instructed to take prescribed preparation prior to procedure:Yes, and they verbalized theirunderstanding of instructions given Patient instructed to have family/friend present for procedure transport home:Patient/patient employment representative was told that if they do not have a responsible adult accompany them to their procedure; and remain in the endoscopy area until they are discharged; that their procedure cannot be done with s edation or anesthesia and may be cancelled. and They verbalized their understanding and agree to have a responsible adult accompany the patient to their procedure and remain in the endoscopy area. Any barriers to Patient learning: Patient/Patient Pot Fisher responded appropriately on phone. Type of instruction given: Verbal by telephone contact. Yvrose Peterson RN documented in this encounter[facility] Instructions* Patient Instructions* Jasmina Carias APRN.SYLVIA - 05/01/2023 2:41 PM EDT PATIENT PREOPERATIVE INSTRUCTIONS No ref. provider found has scheduled you for your procedure at this surgery center: [facility] Scheduling Office: [phone] --[address] [place] [address]. Please read below carefully for your personalized instructions. Dietary Restrictions: - No solid food after midnight. - You may have 12 ounces of clear liquids (water, clear juices such as apple juice or gatorade, carbonated beverages, clear tea, black coffee, jello) until 2 hours before scheduled arrival at facility. Medications: Unless instructed differently below, stay on all of your medications until your surgery. If you start any new medications after today's visit, please contact your surgeon. Pre-Surgery Med Instructions Medication Instructions oxybutynin ER (DITROPAN XL) 15 mg 24 hr Extended Rel Tab Take the day of surgery with a small sip of water carvedilol (COREG) 12.5 mg tablet Take the day of surgery with a small sip of water DULoxetine (CYMBALTA) 60 mg capsule Take the day of surgery with a small sip of water acetaminophen (TYLENOL) 500 mg tablet Take the day of surgery with a small sip of water carbidopa-levodopa (SINEMET 25-100) 25-100 mg per tablet Take the day of surgery with a small sip of water lisinopril (ZESTRIL) 10 mg tablet Do not take the day of surgery folic acid/multivit-min/lutein (CENTRUM SILVER ORAL) Stop 7 days before surgery atorvastatin (LIPITOR) 40 mg tablet Take the day of surgery with a small sip of water nitroglycerin sublingual (NITROQUICK) 0.4 mg SL tablet Do not take the day of surgery nystatin (MYCOSTATIN) powder Do not take the day of surgery Aspirin 81 mg ORAL Tab Take the day of surgery with a small sip of water If you start any new medications after today's visit, please contact the surgeon's office. Blood Thinning Medications: - Stop NSAIDS (Ibuprofen, Advil, Aleve, Motrin, Celebrex, Mobic, etc.) 7 days before surgery, as directed by your surgeon. - Do NOT stop aspirin or other anticoagulants without consulting with your thread marker or prescribing physician. - Stop Vitamin E, ALL multi-vitamins, herbals and dietary supplements 7 days before surgery. - You may take Tylenol (Acetaminophen) or any of your pain medications that do not contain aspirin or NSAIDS as needed. Important Reminders: - Candy, mints, and tobacco products are NOT permitted the morning of surgery. - Hearing aids, dentures and glasses may be worn the morning of surgery. - NO jewelry, body piercings, makeup, hairpins or contacts are to be worn the day of surgery. If you develop symptoms such as a fever, cold, or flu, or have other changes to your health within TWO DAYS of scheduled surgery or the morning of surgery, please contact the surgery center above. Personal Belongings: -Please have photo ID and insurance cards. -If you do not have a copy of advance directives on file with us, please bring a copy with you on the day of surgery. - Leave ALL valuables and money at home or with family members. For Outpatient Procedures: - YOU MUST HAVE A RESPONSIBLE SEED YEAST OPERATOR TAKE YOU HOME. A RAILROAD AUDITOR OR TIER OVER CANNOT BE MADE A RESPONSIBLE SEED YEAST OPERATOR. - We recommend that a responsible person stays with you overnight to take care of you. - You cannot stay in a hotel alone after outpatient surgery. You will not be permitted to have yoursurgery, if you do not have someone to take care of you. Arrival Time for Surgery: - To obtain your arrival time for surgery, call your physician's office the day before your surgery. - If your surgery is scheduled for Monday, call the Monday before. Your surgeon s hogshead dumper will tell you what time to call the office. - If you have not reached the departmental hogshead dumper by 5 P.M., call [phone] after 5 P.M. the day before your surgery. Please be aware that emergency situations arise, which may delay or change your surgical time. If this happens, we will notify you as soon as possible and regret any inconvenience. If you already have an Advance Directive, please fax a copy to [phone] or email to for it to be added to your chart. If you do not have an Advance Directive, you can find the appropriate form and more information at [email or web address]. We recommend that youcomplete the Advance Directive form found on the website and bring it with you the day of your surgery. It can be witnessed and scanned into your chart that day. Jasmina Carias APRN.CNP documented in this encounterOur [facility] History and physical note * Jasmina Carias APRN.CNP - 05/01/2023 2:39 PM EDT Images from the original note were not included. HISTORY AND PHYSICAL EXAMINATION SERVICE DATE: 05/01/2023 SERVICE TIME: 10:19 AM PRIMARY CARE PHYSICIAN: Juan J Hi MD REASON FOR VISIT: Braenna Phelps is a 82 year old female who is scheduled for EGD at the request ofDr. Garry Quiroz consultation. My final recommendation will be communicated back to the requesting physician by way of shared medical record or letter. Subjective The patient has the following: ACTIVE PROBLEM LIST Chronic Bilateral Low Back Pain Without Sciatica Other Hyperlipidemia Essential Hypertension, Benign Asthma Osteoporosis Osteoarthrosis Involving Lower Leg Vitamin D Deficiency Cad (Coronary Artery Disease) Gastroesophageal Reflux Disease Without Esophagitis Small Fiber Neuropathy Urge Incontinence Dizziness and Giddiness Obesity, Class II, Bmi 35-39.9 Adjustment Disorder With Mixed Anxiety and Depressed Mood Takotsubo Cardiomyopathy Tremor Unsteady Gait Neck Pain Pain in Thoracic Spine Parkinson's Disease (Hcc) Pain of Upper Abdomen Weight Loss, Non-Intentional Dysphagia Vhd (Valvular Heart Disease) COVID-19 Immunization Status Postponed - Covid-19 Vaccine (4 - Pfizer series) Postponed until 11/15/2023 11/14/2022 Postponed until 11/15/2023 by Monie Ugalde LPN (Declined at this time) 10/19/2021 Imm Admin: COVID-19 original vaccine, age 12+ yr, monovalent (PFIZER- BIONTECH - MORAN TOP) 11/26/2020 Imm Admin: COVID-19 original vaccine, age 12+ yr, monovalent (PFIZER- BIONTECH - PURPLE TOP) Only the first 3 history entries have been loaded, but more history exists. CHIEF COMPLAINT: Pre-op exam HPI: Breanna Phelps is a 82 year old seen for PAC due to scheduled above surgery because of . 04/18/2023, Patsy Zayas PA-C HPI: Breanna Phelps is a 82 year old female who presents for RUQ Abdominal Pain (Weight loss- not eating, Dysphagia ). PMHx of tremor, Parkinson's, CAD, GERD, osteoporosis and son are present today. Patient tells me that she is dealing with RUQ pains. Can be worse with eating. Feels sick to her stomach at times, no vomiting. Notes a constant globus sensation, always clearing her voice. Notes that she has a very dry mouth and strains to talk. Will get some GERD symptoms depending on what she iseating. Notes hard time swallowing pills and solid foods. Notes that she takes Miralax PRN. Not going daily. No rectal bleeding. Taking baby aspirin daily. Taking Tylenol daily for back pain. Abdominal US 11/15/2022: IMPRESSION: Coarse and heterogeneous appearance of the liver. Hepatic cyst. Suboptimal visualization as described above due to overlying bowel gas and patient inability to tolerate optimal positioning and breath holding for the exam Otherwise normal sonographic appearance of the right upper quadrant. Normal sonographic appearance of the spleen REVIEW OF SYSTEMS: General: No weight loss, malaise or fevers. Neurological: Positive for: Parkinson's disease (on rx, following neurology) and peripheral neuropathy. Negative for: cerebral palsy, SLIME PLANT OPERATOR HELPER tumor, dementia, headaches, multiple sclerosis, seizures, TIA andstrokes. Respiratory: No history of current cough or dyspnea, or pneumonia in the past 6 weeks. No history of respiratory/pulmonary symptoms or problems. Cardiovascular: Positive for: anticoagulation therapy, CAD, CHF, hyperlipidemia and hypertension Patient's last office visit with thread markerChristiano, The following tests and/or procedures were performed: cardiac stents. Negative for: arrhythmia, atrial fibrillation, chest pain, congenital heart defect, DVT/PE, recent OR, murmur/valvular heart disease, open heart surgery and valve surgery. GI: See HPI. Positive for: dysphagia Negative for: abdominal pain, GERD, hepatitis, irritable bowel syndrome, inflammatory bowel disease, liver disease, nausea, pancreatitis, vomiting and ETOH >2 drinks/day. : No history of dysuria, frequency or incontinence, stones or chronic kidney disease. No difficulty urinating, nocturia > 1 time per night or hematuria. CHILD DEVELOPMENT CONSULTANT: Negative for abnormal vaginal bleeding, abnormal vaginal discharge. Endocrine: No history of diabetes. Has not taken steroids within the past 30 days. No history of endocrinological symptoms or problems. Hematology: Positive for: bruises/bleeds easily and chronic anti-coagulation/platelet meds. Patient is on anti-coagulation/platelet medication(s): Aspirin. Negative for: anemia and transfusion of at least 4 units within 72 hours prior to surgery. Oncology: No history of CA metastasis, chemo within 30 days, or radiotherapy within 90 days. No history of oncological symptoms or problems. Psych: No history of psychiatric symptoms or problems. Musculoskeletal: +osteoporosis, no tx Positive for: back pain. Skin: Negative for lesions, rash and itching. PAST MEDICAL HISTORY Diagnosis Date Acid reflux Adjustment disorder with depressed mood Adjustment disorder with depressed mood Adjustment disorder with mixed anxiety and depressed mood Anemia Asthma CAD (coronary artery disease) 11/24/2011 Cervical spondylosis with radiculopathy 05/14/2012 CHOLECYSTITIS SEE ALSO GALLBLADDER ACUTE WITH CALCULUS( Without obstruction) 12/11/2008 DERANGEMENT MENISCUS NEC 03/25/2008 Diaphragmatic hernia without mention of obstruction or gangrene Disorder of bone and cartilage, unspecified 06/06/2007 Osteopenia Diverticulosis of colon (without mention of hemorrhage) Dry eyes, bilateral Essential hypertension, benign High cholesterol Hypersomnia 03/17/2014 Dr. Worrell Hypertension Impaired fasting glucose Lumbago Miscarriage NSTEMI (non-ST elevated myocardial infarction) ([facility]) 03/25/2021 Obesity, unspecified YAMILETH (obstructive sleep apnea) 04/17/2012 Other and unspecified hyperlipidemia Parkinson's disease ([facility]) 04/06/2022 Rheumatic fever Small fiber neuropathy 04/03/2012 Takotsubo cardiomyopathy 03/25/2021 Ulcer disease Unspecified asthma(493.90) 11/24/2005 Unspecified vitamin D deficiency 07/04/2008 Urge incontinence 08/17/2016 Vertigo 12/28/2010 Vitamin B deficiency PAST SURGICAL HISTORY Procedure Laterality Date APPENDECTOMY 1967 ARTHROSCOPY KNEE DIAGNOSTIC W/WO SYNOVIAL BX SPX Right 12/2007 Arthroscopy, knee, right knee. COLONOSCOPY FLX DX W/COLLJ SPEC WHEN PFRMD 03/09/2012 Colonoscopy ESOPHAGOGASTRODUODENOSCOPY TRANSORAL DIAGNOSTIC 03/09/2012 EGD LAPS SURG CHOLECYSTECTOMY W/CHOLANGIOGRAPHY 11/29/2008 LEFT HEART CATH,PERCUTANEOUS 03/25/2021 REM LESIO TRUNK,ARM,LEG 1.1 -2.0CM 01/27/2010 Exc. RLQ skin lesion TOTAL ABDOMINAL HYSTERECT W/WO RMVL TUBE OVARY 1967 TRANSCATH STENT INIT VESSEL,PERCUT 11/24/2011 Transcath stent init vessel percut, LAD FAMILY HISTORY Problem Relation Age of Onset other (heart attack) Mother other (TB) Father Diabetes Maternal Grandfather Breast Cancer Sister other (lung cancer) Brother Coronary Artery Disease Brother Genitourinary () Brother hemodialysis Stroke Sister IC aneurysm Alzheimer's Disease Sister Psoriasis Sister Social History Tobacco Use Smoking status: Never Smokeless tobacco: Never Vaping Use Vaping Use: Never used Substance Use Topics Alcohol use: No Drug use: No Prior to Admission medications as of 05/01/23 1459 Medication Sig Last Dose Taking oxybutynin ER (DITROPAN XL) 15 mg 24 hr Extended Rel Tab Take 1 tablet by mouth once daily. Taking Yes carvedilol (COREG) 12.5 mg tablet Take 1 tablet by mouth twice daily. Taking Yes DULoxetine (CYMBALTA) 60 mg capsule Take 1 capsule by mouth once daily. Taking Yes acetaminophen (TYLENOL) 500 mg tablet Take 1 tablet by mouth twice daily. Taking Yes carbidopa-levodopa (SINEMET 25-100) 25-100 mg per tablet Take 1.5 tablets by mouth three times daily. Take at mealtimes. Taking Yes lisinopril (ZESTRIL) 10 mg tablet Take 1 tablet by mouth once daily. Taking Yes folic acid/multivit-min/lutein (CENTRUM SILVER ORAL) Take by mouth once daily. Taking Yes atorvastatin (LIPITOR) 40 mg tablet Take 1 tablet by mouth once daily. Taking Yes nitroglycerin sublingual (NITROQUICK) 0.4 mg SL tablet Dissolve 1 tablet under the tongue every 5 minutes as needed for Chest Pain. Taking Yes nystatin (MYCOSTATIN) powder Apply 1 application to affected area three times daily. Taking Yes Aspirin 81 mg ORAL Tab Take 1 tablet by mouth once daily. Take with food. Taking Yes No medication comments found. ALLERGIES Allergen Reactions Elina Inhibitors Cough Objective PHYSICAL EXAM: General: alert and oriented (x3) and healthy appearance. Pertinent negatives noted - not distressed. Skin: normal color, no rash or lesions. HEENT: EOM intact and pupils equal round. Pertinent negatives noted - no carotid bruit. Cardiovascular: regular rate and rhythm, normal S1 and S2, no rub, murmurs, or gallop. Respiratory: normal breath sounds, no wheezes or crackles. No chest wall deformity or tenderness. Abdomen: soft. Pertinent negatives noted - not tender. Extremities: no deformity, no edema or tenderness, no joint swelling or clubbing. Neurological: normal cognition and motor skills. Gait normal. No weakness or sensory deficit. PAIN ASSESSMENT: Pain Pain Level: 3 Pain Location: Abdomen (back) Description: Sore Duration Amount of Time: 1 Duration Units: Years Frequency: Intermittent Intervention/Comfort measure: Medication VITALS: BP 120/58 Pulse 79 Temp (Src) 98.1 (Temporal) Resp 14 Ht 4' 11 (1.50m) Wt 138 lb (62.6kg) SpO2 95% BMI 27.86 kg/(m^2). Diagnostic tests reviewed for today's visit: Lab Value Units Date High Low HB No results within date range. HCT No results within date range. WBC No results within date range. PLT No results within date range. NA No results within date range. K No results within date range. GLUC No results within date range. BUN No results within date range. CREAT No results within date range. PTSEC No results within date range. INR No results within date range. APTT No results within date range. ALT No results within date range. AST No results within date range. TBILI No results within date range. TSH No results within date range. Lab Value Units Date High Low HCGQT No results within date range. UHCG No results within date range. HCG, BODY* No results within date range. Lab Value Units Date High Low ABORHD No results within date range. ABSCREEN No results within date range. Hemoglobin A1C (%) Date Value 02/06/2018 5.3 02/06/2017 5.4 03/02/2016 5.6 09/23/2015 5.9 09/11/2012 5.7 No results found for this or any previous visit (from the past 8760 hour(s)). No results found for this or any previous visit (from the past 57361 hour(s)). Assessment Patient has the following medical conditions which may affect adelaida-operative course: Parkinson's disease (HCC) Assessment: controlled on rx, following neurology Gastroesophageal reflux disease without esophagitis Assessment: controlled on rx BENIGN HYPERTENSION Assessment: controlled on rx Last 14 BP Last 14 Encounter BP Readings: Date: BP: 05/01/2023 120/58 04/18/2023 124/72 02/13/2023 126/66 11/14/2022 130/68 09/14/2022 122/72 08/01/2022 166/84 06/02/2022 126/74 05/09/2022 122/64 05/04/2022 127/60 04/06/2022 120/58 03/03/2022 129/75 01/21/2022 128/62 12/09/2021 153/79[Pt advised to followup with PCP[ 11/25/2021 110/68[average[ CAD (coronary artery disease) Assessment: s/p stent, following [facility], daily ASA 04/07/2023 Leah Curtis, 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 Spirometry is normal. There is no significant bronchodilator response. The TLC, RV and RV/TLC are normal. Electronically Signed On 04-02-2020 13:46:43 EDT by Gaurav Adkins Adjustment disorder with mixed anxiety and depressed mood Assessment: stable on rx per pt Chronic bilateral low back pain without sciatica Assessment: on rx Dysphagia Assessment: pending EGD Other hyperlipidemia Assessment: c/w statin Small fiber neuropathy Assessment: on rx Takotsubo cardiomyopathy Assessment: controlled on rx, last Echo EF 65% 02/2022 echo Urge incontinence Assessment: controlled on rx Weight loss, non-intentional Assessment: due to HPI VHD (valvular heart disease) Assessment: pending updated echo 05/04/2023 scheduled 03/2021 echo EF 35% Mild MVI Mild TVI Osteoporosis Assessment: Alendronate til 2020 [place] Activity Status Index: METS: Climb a flight of stairs or walk up a hill (5.50 METs) DASI Score: 5.5 Patient denies any chest pain or undue shortness of breath with the above physical activity. Clinical Frailty Scale: 3. Well, with treated comorbid disease STOP-Bang Score: Snores loudly Denies feeling tired, fatigued, or sleepy during the daytime Has not been observed to stop breathing or choking/gasping during sleep Denies having high blood pressure BMI less than or equal to 35 kg/m^2 Patient 50 years old or younger Does not have a large neck Non-male patient STOP-Bang Score: 1 [id number] Score: Age: >=75 Sex: female CHF history: Yes Hypertension history: Yes Stroke/TIA/thromboembolism history: No Vascular disease history: Yes Diabetes history: No [id number] Score: 6 ARISCAT Score: Age: >80 Preoperative SpO2: 91-95% Respiratory infection in the last month: No Preoperative anemia: Yes Surgical incision: peripheral Duration of surgery: <2 hrs Emergency procedure: No ARISCAT Score: 35 ANESTHESIA FINDINGS: Intubation History: No history of difficult intubation Significant Anesthesia Considerations: none Airway History: No history of difficult airway I - PHYSICAL EVALUATION AIRWAY Patient intubated: No. Tracheostomy tube not present Mallampati: II. TM distance: >3 FB. Neck ROM: limited flexion and extension. Mouth opening: adequate. Short neck: no. Thick neck: yes Guerrero present: no Lip Bite Test: I Microretrognathia/Micronagthia/Recessed Chin: No DENTAL Dental findings: teeth intact. II - ANESTHESIA PLAN Anesthetic Plan: other Anesthetic plan additional comments: *PACC/TCI - anesthesia choice. [employer] Monitoring Plan Post Procedure Analgesic Plan Informed Consent Anesthetic risks, benefits, alternatives, personnel and consent discussed: yes. Patient / Responsible Alliance Party agrees to proceed: yes Patient / Surrogate agrees to blood products: blood products not planned Discussed the possibility of lip / dental damage: yes Prepared for Surgery: optimally prepared for surgery. CONSULTS: Patient does not require consults for optimization at this time Planned Anesthetic: other anesthesia choice The Following Tests/Procedures Have Been Initiated: Orders Placed This Encounter perflutren lipid microspheres 1.3 mL in NaCl (PF) 0.9% 10 mL injection (DEFINITY) sodium chloride 0.9 % (flush) 10 mL (BD POSIFLUSH) ECHO Standing Status: Future Standing Expiration Date: 05/01/2024 Order Specific Question: Disease / Condition: Answer: Valve Disease Order Specific Question: Type: Answer: [place] Valvular Regurgitation Order Specific Question: Indication: Answer: Routine surveillance of mild valvular regurgitation (greater than 3yrs) Instructions Given to Patient: Instructions located in the after visit summary. Patient given verbal and written preop instructions and voices comprehension and compliance. SIGNATURE: Jasmina Carias APRN.CNP PATIENT NAME: Breanna Phelps DATE: May 01, 2023 TIME: 2:39 PM PAGER/CONTACT #: documented in this encounterOur [facility] Of [facility]09-05-2023 Instructions* Patient Instructions* Patsy Zayas PA-C - 04/18/2023 3:44 PM EDT Chew all foods thoroughly and avoid tough meats, nuts, seeds, raw fruits and vegetables and dried fruit. Please go to ER if food is getting stuck and not completely passing through esophagus or trouble breathing occurs. Some soft diet food alternatives are included below: Hot cereal, yalyo-pj-ihx cereal soaked in milk, canned fruit, soft cooked vegetables, juice, scrambled eggs, ground meat, cooked beans, cooked peas, cottage cheese, yogurt without fruit, custards, puddings, cream soups, noodles Calorie/nutrient rich drinks such as Boost/Ensure as appropriate for weight control Drink water with meals and take sips periodically to keep hydrated and help food pass down esophagus Gargle with warm salt water to help reduce any swelling or irritation that may be causing the difficulty in swallowing Oral lozenges can help eliminate dryness because this increases saliva production documented in this encounterOur [facility]09-05-[facility]23 History of Present illness Narrative* Patsy Zayas PA-C - 04/18/2023 3:14 PM EDT CHIEF COMPLAINT: Patient presents with: RUQ Abdominal Pain : Weight loss- not eating, Dysphagia This consult was requested by Juan J Hi MD for an opinion regarding RUQ pain, weight loss, dysphagia. My final recommendations will be communicated to the requesting health care provider by way of the shared medical record for internal providers or letter via the [employer] for external providers. HPI: Breanna Phelps is a 82 year old female who presents for RUQ Abdominal Pain (Weight loss- not eating, Dysphagia ). PMHx of tremor, Parkinson's, CAD, GERD, osteoporosis and son are present today. Patient tells me that she is dealing with RUQ pains. Can be worse with eating. Feels sick to her stomach at times, no vomiting. Notes a constant globus sensation, always clearing her voice. Notes that she has a very dry mouth and strains to talk. Will get some GERD symptoms depending on what she iseating. Notes hard time swallowing pills and solid foods. Notes that she takes Miralax PRN. Not going daily. No rectal bleeding. Taking baby aspirin daily. Taking Tylenol daily for back pain. Abdominal US 11/15/2022: IMPRESSION: Coarse and heterogeneous appearance of the liver. Hepatic cyst. Suboptimal visualization as described above due to overlying bowel gas and patient inability to tolerate optimal positioning and breath holding for the exam Otherwise normal sonographic appearance of the right upper quadrant. Normal sonographic appearance of the spleen Component Latest Ref Rng & Units 09/20/2022 Protein, Total 6.3 - 8.0 g/dL 7.1 Albumin 3.9 - 4.9 g/dL 4.4 Calcium 8.5 - 10.2 mg/dL 9.5 Bilirubin, Total 0.2 - 1.3 mg/dL 0.6 Alkaline Phosphatase 34 - 123 U/L 62 AST 13 - 35 U/L 32 ALT 7 - 38 U/L 35 Glucose 74 - 99 mg/dL 108 (H) BUN 7 - 21 mg/dL 20 Creatinine 0.58 - 0.96 mg/dL 0.59 Sodium 136 - 144 mmol/L 139 Potassium 3.7 - 5.1 mmol/L 4.2 Chloride 97 - 105 mmol/L 102 CO2 22 - 30 mmol/L 27 Anion Gap 9 - 18 mmol/L 10 eGFR >=60 mL/min/1.73m 91 WBC 3.70 - 11.00 k/uL 6.34 RBC 3.90 - 5.20 m/uL 4.30 Hemoglobin 11.5 - 15.5 g/dL 14.3 Hematocrit 36.0 - 46.0 % 41.8 MCV 80.0 - 100.0 fL 97.2 MCH 26.0 - 34.0 pg 33.3 MCHC 30.5 - 36.0 g/dL 34.2 RDW-CV 11.5 - 15.0 % 11.5 Platelet Count 150 - 400 k/uL 240 MPV 9.0 - 12.7 fL 9.6 Absolute nRBC <0.01 k/uL <0.01 Cholesterol, Total <200 mg/dL 140 Triglyceride <150 mg/dL 64 HDL Cholesterol >39 mg/dL 46 Non HDL Cholesterol <130 mg/dL 94 Fasting Time hrs 14 VLDL Cholesterol <30 mg/dL 13 TC:HDL Ratio <5.10 3.04 LDL Cholesterol <100 mg/dL 81 LDL:HDL Ratio <2.54 1.76 Vitamin D 25 Hydroxy 31.0 - 80.0 ng/mL 93.8 (H) Record Review: [facility] / Outside records reviewed. PAST MEDICAL HISTORY Diagnosis Date Acid reflux Adjustment disorder with depressed mood Adjustment disorder with depressed mood Adjustment disorder with mixed anxiety and depressed mood Anemia Asthma CAD (coronary artery disease) 11/24/2011 Cervical spondylosis with radiculopathy 05/14/2012 CHOLECYSTITIS SEE ALSO GALLBLADDER ACUTE WITH CALCULUS( Without obstruction) 12/11/2008 DERANGEMENT MENISCUS NEC 03/25/2008 Diaphragmatic hernia without mention of obstruction or gangrene Disorder of bone and cartilage, unspecified 06/06/2007 Osteopenia Diverticulosis of colon (without mention of hemorrhage) Dry eyes, bilateral Essential hypertension, benign High cholesterol Hypersomnia 03/17/2014 Dr. Worrell Hypertension Impaired fasting glucose Lumbago Miscarriage NSTEMI (non-ST elevated myocardial infarction) ([facility]) 03/25/2021 Obesity, unspecified YAMILETH (obstructive sleep apnea) 04/17/2012 Other and unspecified hyperlipidemia Parkinson's disease ([facility]) 04/06/2022 Rheumatic fever Small fiber neuropathy 04/03/2012 Takotsubo cardiomyopathy 03/25/2021 Ulcer disease Unspecified asthma(493.90) 11/24/2005 Unspecified vitamin D deficiency 07/04/2008 Urge incontinence 08/17/2016 Vertigo 12/28/2010 Vitamin B deficiency PAST SURGICAL HISTORY Procedure Laterality Date APPENDECTOMY 1967 ARTHROSCOPY KNEE DIAGNOSTIC W/WO SYNOVIAL BX SPX Right 12/2007 Arthroscopy, knee, right knee. COLONOSCOPY FLX DX W/COLLJ SPEC WHEN PFRMD 03/09/2012 Colonoscopy ESOPHAGOGASTRODUODENOSCOPY TRANSORAL DIAGNOSTIC 03/09/2012 EGD LAPS SURG CHOLECYSTECTOMY W/CHOLANGIOGRAPHY 11/29/2008 LEFT HEART CATH,PERCUTANEOUS 03/25/2021 REM LESIO TRUNK,ARM,LEG 1.1 -2.0CM 01/27/2010 Exc. RLQ skin lesion TOTAL ABDOMINAL HYSTERECT W/WO RMVL TUBE OVARY 1967 TRANSCATH STENT INIT VESSEL,PERCUT 11/24/2011 Transcath stent init vessel percut, LAD Allergies: ALLERGIES Allergen Reactions Elina Inhibitors Cough Medications: oxybutynin ER (DITROPAN XL) 15 mg 24 hr Extended Rel Tab Take 1 tablet by mouth once daily. carvedilol (COREG) 12.5 mg tablet Take 1 tablet by mouth twice daily. DULoxetine (CYMBALTA) 60 mg capsule Take 1 capsule by mouth once daily. acetaminophen (TYLENOL) 500 mg tablet Take 1 tablet by mouth twice daily. carbidopa-levodopa (SINEMET 25-100) 25-100 mg per tablet Take 1.5 tablets by mouth three times daily. Take at mealtimes. lisinopril (ZESTRIL) 10 mg tablet Take 1 tablet by mouth once daily. folic acid/multivit-min/lutein (CENTRUM SILVER ORAL) Take by mouth once daily. atorvastatin (LIPITOR) 40 mg tablet Take 1 tablet by mouth once daily. Aspirin 81 mg ORAL Tab Take 1 tablet by mouth once daily. Take with food. nitroglycerin sublingual (NITROQUICK) 0.4 mg SL tablet Dissolve 1 tablet under the tongue every 5 minutes as needed for Chest Pain. (Patient not taking: Reported on 04/18/2023) nystatin (MYCOSTATIN) powder Apply 1 application to affected area three times daily. (Patient not taking: Reported on 04/18/2023) FAMILY HISTORY Problem Relation Age of Onset other (heart attack) Mother other (TB) Father Diabetes Maternal Grandfather Breast Cancer Sister other (lung cancer) Brother Coronary Artery Disease Brother Genitourinary () Brother hemodialysis Stroke Sister IC aneurysm Alzheimer's Disease Sister Psoriasis Sister Employer And Job Title: No employer specified (retired) Years Of Education Completed: Not specified Marital Status: to Bossman Neville with 2 children Social History Tobacco Use Smoking status: Never Smokeless tobacco: Never Vaping Use Vaping Use: Never used Substance Use Topics Alcohol use: No Drug use: No Review of Systems: Review of Systems Constitutional: Positive for appetite change and fatigue. HENT: Positive for trouble swallowing. Respiratory: Positive for cough. All other systems reviewed and are negative. Are you taking any blood thinners? No Physical Examination: BP 124/72 Pulse 77 Ht 4' 11 (1.50m) Wt 141 lb (64.0kg) BMI 28.46 kg/(m^2). Physical Exam Constitutional: Appearance: Normal appearance. She is normal weight. HENT: Head: Normocephalic and atraumatic. Eyes: General: No scleral icterus. Extraocular Movements: Extraocular movements intact. Conjunctiva/sclera: Conjunctivae normal. Pupils: Pupils are equal, round, and reactive to light. Cardiovascular: Rate and Rhythm: Normal rate and regular rhythm. Pulses: Normal pulses. Heart sounds: Normal heart sounds. Pulmonary: Effort: Pulmonary effort is normal. Breath sounds: Normal breath sounds. Abdominal: General: Abdomen is flat. Bowel sounds are normal. Palpations: Abdomen is soft. Tenderness: There is no abdominal tenderness. Musculoskeletal: Cervical back: Normal range of motion and neck supple. Comments: Large kyphosis, uses walker to ambulate Skin: General: Skin is warm and dry. Coloration: Skin is not jaundiced. Neurological: General: No focal deficit present. Mental Status: She is alert and oriented to person, place, and time. Psychiatric: Mood and Affect: Mood normal. Behavior: Behavior normal. Thought Content: Thought content normal. Judgment: Judgment normal. Assessment/Plan (R10.10) Pain of upper abdomen (primary encounter diagnosis) (R63.4) Weight loss, non-intentional (R13.10) Dysphagia, unspecified type 1. Pain of upper abdomen -- Patient RUQ pains, can be worse with eating. Does have significant shift of stature to that sidedue to osteoporosis. -- Plan for EGD rule out PUD, gastritis - EGD DIAGNOSTIC; Future 2. Weight loss, non-intentional -- Notes weight loss due to RUQ pain, dysphagia, decreased appetite -- Plan for EGD for further evaluation - EGD DIAGNOSTIC; Future 3. Dysphagia, unspecified type -- Notes dysphagia with solid foods, pills. Feels a constant globus sensation -- EGD for further evaluation Chew all foods thoroughly and avoid tough meats, nuts, seeds, raw fruits and vegetables and dried fruit. Please go to ER if food is getting stuck and not completely passing through esophagus or trouble breathing occurs. Some soft diet food alternatives are included below: Hot cereal, [id number] cereal soaked in milk, canned fruit, soft cooked vegetables, juice, scrambled eggs, ground meat, cooked beans, cooked peas, cottage cheese, yogurt without fruit, custards, puddings, cream soups, noodles Calorie/nutrient rich drinks such as Boost/Ensure as appropriate for weight control Drink water with meals and take sips periodically to keep hydrated and help food pass down esophagus Gargle with warm salt water to help reduce any swelling or irritation that may be causing the difficulty in swallowing Oral lozenges can help eliminate dryness because this increases saliva production - EGD DIAGNOSTIC; Future Follow up in office PRN. Recommended to please call office/go to ER if fever, chills, chest pain, SOB, diarrhea, nausea, emesis, worsening abdominal pain, dehydration occurs I spent a total of 25 minutes on the date of the service which included preparing to see the patient, [id number] patient care, completing clinical documentation, obtaining and/or reviewing separately obtained history, performing a medically appropriate examination, counseling and educating the pat ient/family/caregiver, and ordering medications, tests, or procedures. Patsy Zayas PA-C April 18, 2023 3:44 PM documented in this encounterOur Lady Of [facility]07-07-2023 Miscellaneous Notes* Telephone Encounter - Sahil Salazar Ma - 02/17/2023 8:52 AM EDT Faxed as requested. Sahil Salazar Ma * Telephone Encounter - Juan J Hi MD - 02/16/2023 7:29 PM EDT Okay. * Telephone Encounter - Amparo Silver RN - 02/16/2023 1:04 PM EDT Tasneem speech therapist from [facility] calling and states pt's insurance is not covering the speech therapy with the dx codes of Parkinsons Disease and chronic cough. Could Dr. Hi fax over a new order with dx code more specific to speech therapy. Per Dr. Hi's last OV of 02/13/23, pt had dysphagia. Order placed. Please sign and fax to [phone] Attn. Tasneem. documented in this encounterOur Lady Of Mercy [facility]07-03-2023 History of Present illness Narrative* Juan J Hi MD - 02/13/2023 4:42 PM EDT This note was created using NoteWriter. Kay Phelps is a 82 year old female. She continued with upper abdominal pain and weight loss. This was complicated by chronic dysphagia. She had swallow evaluation and therapy 3 months ago. Chronic neck, back, and joint pains were ongoing. She declined opioid. She was on duloxetine as well. Review of Systems Constitutional: Positive for appetite change and unexpected weight change. HENT: Positive for trouble swallowing. Respiratory: Negative for shortness of breath. Cardiovascular: Negative for chest pain. Gastrointestinal: Positive for abdominal pain. Musculoskeletal: Positive for arthralgias, back pain and neck pain. ACTIVE PROBLEM LIST Chronic Bilateral Low Back Pain Without Sciatica Other Hyperlipidemia Essential Hypertension, Benign Asthma Osteoporosis Osteoarthrosis Involving Lower Leg Vitamin D Deficiency Cad (Coronary Artery Disease) Gastroesophageal Reflux Disease Without Esophagitis Small Fiber Neuropathy Urge Incontinence Dizziness and Giddiness Obesity, Class II, Bmi 35-39.9 Adjustment Disorder With Mixed Anxiety and Depressed Mood Takotsubo Cardiomyopathy Tremor Unsteady Gait Neck Pain Pain in Thoracic Spine Parkinson's Disease (Hcc) Current Outpatient Medications Medication Sig acetaminophen (TYLENOL) 500 mg tablet Take 1 tablet by mouth twice daily. carbidopa-levodopa (SINEMET 25-100) 25-100 mg per tablet Take 1.5 tablets by mouth three times daily. Take at mealtimes. lisinopril (ZESTRIL) 10 mg tablet Take 1 tablet by mouth once daily. DULoxetine (CYMBALTA) 30 mg capsule Take 1 capsule by mouth once daily. oxybutynin ER (DITROPAN XL) 15 mg 24 hr Extended Rel Tab Take 1 tablet by mouth once daily. carvedilol (COREG) 12.5 mg tablet Take 1 tablet by mouth twice daily. folic acid/multivit-min/lutein (CENTRUM SILVER ORAL) Take by mouth once daily. atorvastatin (LIPITOR) 40 mg tablet Take 1 tablet by mouth once daily. nitroglycerin sublingual (NITROQUICK) 0.4 mg SL tablet Dissolve 1 tablet under the tongue every 5 minutes as needed for Chest Pain. nystatin (MYCOSTATIN) powder Apply 1 application to affected area three times daily. (Patient taking differently: Apply 1 application to affected area three times daily. PRN) Aspirin 81 mg ORAL Tab Take 1 tablet by mouth once daily. Take with food. Cholecalciferol, Vitamin D3, 25 mcg (1,000 unit) cap Take 1 capsule by mouth once daily. (Patient not taking: No sig reported) No current facility-administered medications for this visit. Objective BP 126/66 (BP Site: Left Arm, BP Position: Sitting, BP Cuff Size: Large Adult) Pulse 72 Resp 16 Wt 65.8 kg (145 lb) BMI 28.70 kg/m Physical Exam Constitutional: General: She is not in acute distress. Cardiovascular: Rate and Rhythm: Normal rate and regular rhythm. Heart sounds: No murmur heard. No gallop. Pulmonary: Breath sounds: Normal breath sounds. Abdominal: Tenderness: There is no abdominal tenderness. Musculoskeletal: Right lower leg: No edema. Left lower leg: No edema. Comments: Moderate kyphoscoliosis. Neurological: Mental Status: She is alert. Comments: Ambulatory with walker. Psychiatric: Mood and Affect: Mood normal. Assessment and Plan 1. Pain of upper abdomen - ICD9: 789.09, ICD10: R10.10 (primary diagnosis) - CONSULT TO GASTROENTEROLOGY 2. Adjustment disorder with mixed anxiety and depressed mood - ICD9: 309.28, ICD10: F43.23 Dose increased more for pain. - DULOXETINE 60 MG CAPSULE,DELAYED RELEASE 3. Chronic bilateral low back pain with bilateral sciatica - ICD9: 724.2, 724.3, 338.29, ICD10: M54.42, M54.41, G89.29 Chronic low back pain - DULOXETINE 60 MG CAPSULE,DELAYED RELEASE 4. Urge incontinence - ICD9: 788.31, ICD10: N39.41 Refilled. - OXYBUTYNIN CHLORIDE ER 15 MG TABLET,EXTENDED RELEASE 24 HR 5. Takotsubo cardiomyopathy - ICD9: 429.83, ICD10: I51.81 Stable. - CARVEDILOL 12.5 MG TABLET 6. Weight loss, non-intentional - ICD9: 783.21, ICD10: R63.4 - CONSULT TO GASTROENTEROLOGY 7. Dysphagia, unspecified type - ICD9: 787.20, ICD10: R13.10 - CONSULT TO GASTROENTEROLOGY 8. Osteoporosis, unspecified osteoporosis type, unspecified pathological fracture presence - ICD9: 733.00, ICD10: M81.0 - Shared medical decision making was done. She was having dysphagia to pills and express concern about taking multiple medications. We agreed evaluation and treatment was not practical at this time. Juan J Hi MD documented in this encounterOur Lady Of Mercy Hospital04-05-2023 Miscellaneous Notes* Addendum Note - Juan J Hi MD - 11/16/2022 5:51 PM EDTAddended by: JUAN J HI on: 11/16/2022 05:51 PM Modules accepted: Orders documented in this encounterOur Lady Of Mercy Hospital04-04-2023 History of Present illness Narrative* Destiny Zamorano RDMS - 11/15/2022 2:30 PM EDT Radiology Service Progress Note PATIENT NAME: Breanna Phelps DATE OF SERVICE: November 15, 2022 TIME: 3:14 PM PATIENT IDENTITY VERIFICATION COMPLETED USING TWO (2) IDENTIFIERS: Name and Date of confirmedby patient verbally. FALL SCREENING: Has the patient had 2 falls in the last year or 1 fall with injury or currently using an Ambulatory Assistive Device (Walker, Cane, Wheelchair, Crutches, etc.)? Yes, Patient High Riskfor Falls What interventions were put in place to prevent falls during this visit? Instructed Patient to Callfor Help if Needed, Offered Assistance with Transfers/Clothing, Instructed Patient to Remain Seated(Not on Exam Table) Until Exam, and Increased Observations by Caregivers PATIENT GENDER DATA: Female. status: : No status: NO. PATIENT RELEVANT IMPLANT DATA REVIEWED: Not Applicable RADIOLOGY DEPARTMENT: Ultrasound PERIPHERAL IV DATA: Not applicable SIGNED BY: Destiny Zamorano RDMS RVT November 15, 2022 3:14 PM documented in this encounterOur Lady Of Mercy Hospital04-04-2023 Miscellaneous Notes* Result Encounter Note - Juan J Hi MD - 11/15/2022 2:30 PM EDT No acute disease. Result viewed. * Result Encounter Note - Juan J Hi MD - 11/15/2022 2:30 PM EDT OK. Result(s) viewed by patient: Yes. For appointment:02/13/23. documented in this encounterOur Lady Of Mercy Hospital04-03-2023 History of Present illness Narrative* Juan J Hi MD - 11/14/2022 5:12 PM EDT This note was created using 5 examples. Subjective Breanna Phelps is a 81 year old female. She continued to lose weight. Appetite was less and she hadvague pressure in her upper abdomen which seemed positional. She had significant kyphosis and was unable to lay down for tests or imaging. Back pains were constant, and she refused to take tramadol. Cough from postnasal drainage was stable, and chest X-ray was negative. She complained of a lump of the right posterior knee noted recently. She also had a small lump of the back of the head without change for almost 2 years. Review of Systems Constitutional: Positive for fatigue and unexpected weight change. Negative for chills and fever. HENT: Positive for postnasal drip. Respiratory: Positive for cough. Negative for chest tightness and shortness of breath. Cardiovascular: Negative for chest pain, palpitations and leg swelling. Gastrointestinal: Negative for blood in stool, constipation, diarrhea, nausea and vomiting. Genitourinary: Negative for difficulty urinating. Musculoskeletal: Positive for arthralgias and back pain. Skin: Negative for wound. Neurological: Positive for tremors and weakness. Psychiatric/Behavioral: Negative. Negative for dysphoric mood. ACTIVE PROBLEM LIST Chronic Bilateral Low Back Pain Without Sciatica Other Hyperlipidemia Essential Hypertension, Benign Asthma Osteoporosis Osteoarthrosis Involving Lower Leg Vitamin D Deficiency Cad (Coronary Artery Disease) Gastroesophageal Reflux Disease Without Esophagitis Small Fiber Neuropathy Urge Incontinence Dizziness and Giddiness Obesity, Class II, Bmi 35-39.9 Adjustment Disorder With Mixed Anxiety and Depressed Mood Takotsubo Cardiomyopathy Tremor Unsteady Gait Neck Pain Pain in Thoracic Spine Parkinson's Disease (Hcc) Current Outpatient Medications Medication Sig carbidopa-levodopa (SINEMET 25-100) 25-100 mg per tablet Take 1.5 tablets by mouth three times daily. Take at mealtimes. lisinopril (ZESTRIL) 10 mg tablet Take 1 tablet by mouth once daily. DULoxetine (CYMBALTA) 30 mg capsule Take 1 capsule by mouth once daily. oxybutynin ER (DITROPAN XL) 15 mg 24 hr Extended Rel Tab Take 1 tablet by mouth once daily. carvedilol (COREG) 12.5 mg tablet Take 1 tablet by mouth twice daily. folic acid/multivit-min/lutein (CENTRUM SILVER ORAL) Take by mouth once daily. traMADol (ULTRAM) 50 mg tablet Take 1 tablet by mouth twice daily. For back pain. (Patient taking differently: Take 50 mg by mouth twice daily as needed. For back pain.) acetaminophen (TYLENOL) 500 mg tablet Take 1 tablet by mouth every 6 hours as needed for pain. atorvastatin (LIPITOR) 40 mg tablet Take 1 tablet by mouth once daily. nitroglycerin sublingual (NITROQUICK) 0.4 mg SL tablet Dissolve 1 tablet under the tongue every 5 minutes as needed for Chest Pain. nystatin (MYCOSTATIN) powder Apply 1 application to affected area three times daily. (Patient taking differently: Apply 1 application to affected area three times daily. PRN) Aspirin 81 mg ORAL Tab Take 1 tablet by mouth once daily. Take with food. Cholecalciferol, Vitamin D3, 25 mcg (1,000 unit) cap Take 1 capsule by mouth once daily. (Patient not taking: Reported on 11/14/2022) No current facility-administered medications for this visit. Objective BP 130/68 (BP Site: Left Arm, BP Position: Sitting, BP Cuff Size: Large Adult) Pulse 80 Resp 16 Ht 151.4 cm (4' 11.6) Wt 67.4 kg (148 lb 8 oz) BMI 29.39 kg/m Physical Exam Constitutional: General: She is not in acute distress. HENT: Head: Comments: Smooth, mobile, firm cyst of the occipital area <1 cm diameter. Cardiovascular: Rate and Rhythm: Normal rate and regular rhythm. Heart sounds: No murmur heard. No gallop. Pulmonary: Breath sounds: Normal breath sounds. No wheezing or rales. Abdominal: Palpations: Abdomen is soft. There is no hepatomegaly, splenomegaly or mass. Tenderness: There is abdominal tenderness in the epigastric area. There is no guarding or rebound. Comments: Exam limited due to decreased area of anterior abdomen from kyphosis. Musculoskeletal: Right knee: Swelling present. Tenderness present over the PCL. No medial joint line or lateral joint line tenderness. Instability Tests: Anterior drawer test negative. Posterior drawer test negative. Right lower leg: No swelling or tenderness. No edema. Left lower leg: No edema. Neurological: General: No focal deficit present. Mental Status: She is alert. Gait: Gait abnormal. Folstein MMSE 11/14/[address] 5 REGISTRATION 3 ATTENTION & CALCULATION 3 RECALL 3 LANGUAGE 2 REPEAT 1 FOLLOW 3-STEP COMMAND 3 READ AND OBEY 1 WRITE A SENTENCE 1 COPY 1 SCORE 28 Assessment and Plan 1. Medicare annual wellness visit, subsequent - ICD9: V70.0, ICD10: Z00.00 (primary diagnosis) See wellness. 2. 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 If d-dimer abnormal, US will be needed. - D-DIMER 3. Weight loss, non-intentional - ICD9: 783.21, ICD10: R63.4 - US ABD RIGHT UPPER QUADRANT 4. Pain of upper abdomen - ICD9: 789.09, ICD10: R10.10 Etiology unclear Differential Diagnosis includes PUD and Gastritis - US ABD RIGHT UPPER QUADRANT 5. Neck pain - ICD9: 723.1, ICD10: M54.2 - Discontinue TRAMADOL per patient preference. - ACETAMINOPHEN 500 MG TABLET. Take one(1) tablet two(2) times daily. Discussed medication dosage, usage, goals of therapy, and side effects. 6. Pain in thoracic spine - ICD9: 724.1, ICD10: M54.6 See above. - ACETAMINOPHEN 500 MG TABLET 7. 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 8. Epidermoid cyst of skin of scalp - ICD9: 706.2, ICD10: L72.0 Reassurance. Juan J Hi MD November 16, 2022 D- dimer cancelled or . Repeat ordered. Please inform the patient. Juan J Hi MD * Juan J Hi MD - 11/14/2022 4:52 PM EDT Breanna Phelps is a 81 year old female here for a Medicare Subsequent Annual Wellness Visit Health Risk Assessment In general, health is: Poor Concerns with balance:Nearly every day Concerns with teeth or dentures:Several days Concerns with sexual function:Not at all [place] anxious, stressed, angry, irritable, lonely, isolated, or had thoughts of hurting themself: Several days Has little interest or pleasure in doing things: Several days Bothered by feeling down, depressed, or hopeless: Several days Needs help with grocery shopping, cooking, housework, bathing, grooming, dressing, eating, sitting or standing, walking, using the toilet, handling finances, taking medications, using the telephone, or driving: Yes Following safety precautions in the home environment and vehicle: removed throw rugs from floors, installed grab bars in the bathroom, handrails in stairwells, having adequate lighting, wearing seatbelt at all times?: Yes Smokes cigarettes, vapes, or chew tobacco: No Eats healthy foods including fruits, vegetables, whole grains, and fiber-rich foods: More than halfthe days Number of days per week engages in exercise: 0 days Average alcohol consumption: Never Current Providers Specialists: I have reviewed specialist-related care of the patient in the medical record. Dr. Alvarado, cardiology. Leandro Kingston, Senior Stack Engineer. Dr. Steven Cr, neurologist. Speech Therapy, [facility] [place] Medical/Family history review Reviewed and updated problem list, medical/surgical/family/social history, medications, and allergies. Opioid use review Patient is not currently using opioids. Prescribed tramadol HCl (last 90 days) Does patient have risk factors for opioid abuse? No Pain overview Pain Scales: Verbal (Numeric Rating or Visual Analog Scale) Pain Level: 5 Pain Location: Leg-Right Description: Sore Duration Amount of Time: 18 Duration Units: Months Frequency: Intermittent Intervention/Comfort measure: Medication Comments: Tylenol as needed Current pain concerns and treatment plan reviewed. Patient would benefit from specialty referral tohelp manage pain and has been provided information on non- opioid treatment options. Depression screening Depression Screening PHQ-2 Score PHQ-9 Score 05/02/2022 4 13 Depression screening tool completed and reviewed. Based on score and interview, patient is already diagnosed with depression. Screening tool discussed with patient, and I recommended continuing current plan of care. Cognitive screening Mini Cog Score: Score: 2 Folstein MMSE= Cognitive screening reviewed and no further action needed (score 3-5) Functional Observation Was the patient's timed Up & Go test unsteady or ? 12 seconds? Yes Advance Care Planning End of Life planning discussed, including patient's advanced directive wishes: Yes Measurements BP 130/68 Pulse 80 Resp 16 Ht 4' 11.6 (1.51m) Wt 148 lb 8 oz (67.4kg) BMI 29.39 kg/(m^2). Visual acuity (required for Welcome to Medicare): follows with optometry/ophthalmology and Right: 20/30 Left: 20/ 40 Both: 20/40 Hearing Evaluation: within normal limits Assessment/Plan - Counseled on healthy diet and regular exercise - Fall avoidance - Vaccines recommended Shingrix at pharmacy - Depression screening documented in this encounterOur [facility]03-31-2023 Miscellaneous Notes* Telephone Encounter - Summer Chavez LPN - 11/11/2022 10:03 AM EDT Patient's son notified of same. * Telephone Encounter - Maral Moody APRN.CNP - 11/11/2022 8:01 AM EDT Too soon to recheck Vitamin D, not due for any other labs Maral Moody APRN.CNP * Telephone Encounter - Monie Ugalde LPN - 11/10/2022 1:42 PM EDT Does Patient need to repeat Vitamin D level. Monie Ugalde LPN * Telephone Encounter - Delmy Schultz Pss - 11/10/2022 1:26 PM EDT Patient calling asking if a lab draw is needed prior to office visit on Monday, 11/14. Please advise and call patient. documented in this encounterOur Lady Of Mercy Hospital03-27-2023 Miscellaneous Notes* Telephone Encounter - Denia Simmons MA - 11/07/2022 1:23 PM EDT Son Italia notified of new script sent to pharmacy * Telephone Encounter - Kristy Cr MD - 11/07/2022 11:50 AM EDT The following approved medication requests have been transmitted electronically. Requested Prescriptions Signed Prescriptions Disp Refills carbidopa-levodopa (SINEMET 25-100) 25-100 mg per tablet 405 tablet 3 Sig: Take 1.5 tablets by mouth three times daily. Take at mealtimes. Authorizing Provider: KRISTY CR MD * Telephone Encounter - Maribel Brennan - 11/07/2022 9:48 AM EDT Patient's son (Italia) called office because pharmacy will not fill RX for Sinemet. Pharmacy told him it was too soon to fill RX. Per OV notes on 07/30/2023: Can try increasing Sinemet (carbidopa-levodopa) to 1.5 tabs 3 times a day for 2 weeks assuming no side effects. If not helping then taper off it: 1 tab 3 times a day for 1 week, then 1/2 tab 3 timesa day for 1 weeks, then STOP? Italia stated that Paralee is taking 1.5 tabs 3x a day. They are requesting a new RX so they can fill now. Preferred pharmacy is [facility] [address] [place] [address] - [address] - [phone]. Please call Italia at [phone] with any updates/questions. Maribel Brennan documented in this encounterOur Lady Of Mercy [facility]03-23-2023 Miscellaneous Notes* Telephone Encounter - Cheyenne Degroot LPN - 11/03/2022 3:33 PM EDT Patient has been identified by name and date of : Patient phones for refill(s): Requested Prescriptions Pending Prescriptions Disp Refills lisinopril (ZESTRIL) 10 mg tablet 90 tablet 3 Sig: Take 1 tablet by mouth once daily. Date of last office visit in primary care: 09/14/2022, has appt 11/14/2022 Last 2 Encounter Wt Readings: Date: Wt: 09/14/2022 69.4 kg (153 lb) 08/01/2022 68 kg (150 lb) Previous labs/tests for medication: Blood Pressure: BUN (mg/dL) Date Value 09/20/2022 20 10/01/2020 19 Sodium (mmol/L) Date Value 09/20/2022 139 10/01/2020 143 Last 1 Encounter BP Readings: Date: BP: 09/14/2022 122/72 Please advise. Thank you. Cheyenne Degroot LPN documented in this encounterOur Lady Of Mercy Hospital02-28-2023 Procedure [facility]02-14-2023 Miscellaneous Notes* Telephone Encounter - Monie Ugalde LPN - 09/27/2022 12:18 PM EST Asim/son notified, verbalized understanding. Monie Ugalde LPN * Addendum Note - Maral Moody APRN.CNP - 09/27/2022 11:23 AM ESTAddended by: MARAL MOODY on: 09/27/2022 11:23 AM Modules accepted: Orders * Telephone Encounter - Maral Moody APRN.CNP - 09/27/2022 11:[address] Hi's last note consider resuming Alendronate (Fosamax) if swallow evaluation is okay. Will wait until then Maral Moody APRN.CNP * Telephone Encounter - Monie Ugalde LPN - 09/26/2022 6:59 PM EST Italia/son notified of below results/recommendation, verbalized understanding. Asking, in past Paralee had taken medication for osteoporosis. Asking if Dr. Hi was going toprescribe anything at this time. Uses [facility]. Please advise. Monie Ugalde LPN * Telephone Encounter - Sahil Salazar Ma - 09/26/2022 2:15 PM EST TC to patient , voicemail not set up. Will try again later. * Telephone Encounter - Sahil Salazar Ma - 09/26/2022 2:14 PM EST ----- Message from Juan J Hi MD sent at 09/25/2022 4:04 PM EST ----- Test results are okay except Vitamin D is too high. Reduce vitamin D3 to 1000 international unit(s)daily. documented in this encounterOur Lady Of Mercy Hospital02-07-2023 Miscellaneous Notes* Telephone Encounter - Monie Ugalde LPN - 09/20/2022 8:17 AM EST Below given to [facility] Radiology. Monie Ugalde LPN * Telephone Encounter - Juan J Hi MD - 09/19/2022 8:19 PM EST Swallow evaluation by speech therapy. * Telephone Encounter - Radha Penaloza RN - 09/19/2022 9:22 AM EST Jose from [facility] Radiology Called in asking about Pts Esophagram. She needed clarification on if thiswas a outpatient procedure done with ST, or an inpatient procedure done in radiology. Pt was at [facility] [place] today to have done and they couldn't find anything with the code the provider had ordered. She reports they are looking into the code and will have to reschedule the Pt. Please call Jose and advise. documented in this encounterOur Lady Of Mercy Hospital12-19-2022 History of Present illness Narrative* Kristy Cr MD - 08/01/2022 3:29 PM EST [facility] - FOLLOW UP EVALUATION No referring provider defined for this encounter. Juan J Hi MD [address] [facility] [address] I had the pleasure of seeing Ms. Phelps for follow up today. She is a 81 year old right-handed female with a history of tremor and gait instability since 2020. She is seen with a son and . Subjective Previous Plan-: 04/06/2022 Visit: Try Sinemet and see if you are moving better. Follow directions on the bottle. If no better after 2weeks then can taper off using the same taper schedule but backwards - Get the brain MRI. If you cannot complete it we will do a cat scan instead - See pain management or spine - Interval History: Taking Sinemet. Not sure is helping. Has to move slowly. No lightheadedness. No improvement noted by her son. Did PT in the fall for the neck. Doing exercises at home. Constant pain that doesn't seemto change. Sleeping a lot. At night sleeps 3-4 hours at a time a couple of cycles. Not sure what wakes her up. Maybe pain or , need to urinate. is draining- dementia, impaired hearing and sight. Sings the same tune constantly. Son is working on getting more care for him at home. He screams for her if she is away from him too long. Sometimes feels like she is shaking on the inside- arms, shoulders, upper body. Sometimes frustrated. Son states she is frustrated a lot. Parkinson's Medication Schedule - as of the start of the visit: Medications Sinemet 25/100 1 1 1 Questionnaires In addition, the following areas that may be affected by abnormal involuntary movements were evaluated: Daily activities Difficulties with eating: helps with preparation. trouble doing dishes. Difficulties in dressing: can mostly do it. some clothes hard to get over her shoulders. Difficulties with hygiene activities: having trouble. fear of falling in the shower. has shower stool. shower chair is too big for the shower. Difficulties with handwriting: Difficulties with doing hobbies and other activities: Difficulties turning in bed: doesn't. lays on back propped up with wedge. better in recliner Difficulties getting out of bed, car or chair: yes Tremors/Gait/Balance Shaking or tremors: no Walking and balance problems: yes Number of falls in the Last Month: no Gait freezing: Autonomic/Pain Lightheadeness on standing: Urinary problems: urgency and frequency. oxybutynin helps a little Constipation problems: yes. Miralax helps when she remembers to take it Pain and other sensations: Speech/Swallowing Speech problems: Drooling: Chewing and swallowing problems: trouble getting head back to swallow. Sleep/Fatigue Sleep problems: Daytime sleepiness: Fatigue: ALLERGIES No Known Allergies Current Outpatient Medications Medication Sig Cholecalciferol, Vitamin D3, 125 mcg (5,000 unit) cap Take 1 capsule by mouth once daily. oxybutynin ER (DITROPAN XL) 15 mg 24 hr Extended Rel Tab Take 1 tablet by mouth once daily. carbidopa-levodopa (SINEMET 25-100) 25-100 mg per tablet Take 0.5 tablets by mouth three times daily for 7 days, THEN 1 tablet three times daily for 7 days, THEN 1.5 tablets three times daily for 7 days, THEN 2 tablets three times daily. Take at mealtimes. Stop increasing the dose at any point yoursymptoms are controlled. (Patient taking differently: Taking 1 tablet 3 times daily) DULoxetine (CYMBALTA) 30 mg capsule Take 1 capsule by mouth once daily. carvedilol (COREG) 12.5 mg tablet Take 1 tablet by mouth twice daily. folic acid/multivit-min/lutein (CENTRUM SILVER ORAL) Take by mouth once daily. traMADol (ULTRAM) 50 mg tablet Take 1 tablet by mouth twice daily. For back pain. (Patient taking differently: Take 50 mg by mouth twice daily as needed. For back pain.) lisinopril (ZESTRIL, PRINIVIL) 10 mg tablet Take 1 tablet by mouth once daily. acetaminophen (TYLENOL) 500 mg tablet Take 1 tablet by mouth every 6 hours as needed for pain. atorvastatin (LIPITOR) 40 mg tablet Take 1 tablet by mouth once daily. nitroglycerin sublingual (NITROQUICK) 0.4 mg SL tablet Dissolve 1 tablet under the tongue every 5 minutes as needed for Chest Pain. nystatin (MYCOSTATIN) powder Apply 1 application to affected area three times daily. (Patient taking differently: Apply 1 application to affected area three times daily. PRN) Aspirin 81 mg ORAL Tab Take 1 tablet by mouth once daily. Take with food. Incontinence Pad, Liner, Disp pads 5 Each once daily. No current facility-administered medications for this visit. Objective Vital Signs: BP 166/84 (BP Site: Left Arm, BP Position: Sitting, BP Cuff Size: Regular Adult) Pulse 80 Ht 152.4 cm (5') Wt 68 kg (150 lb) SpO2 97% BMI 29.29 kg/m Orthostatic Vitals: None for this encounter Weight: 68 kg (150 lb) Height: 152.4 cm (5') No LMP recorded. Patient has had a hysterectomy. Body mass index is 29.29 kg/m . General Physical Examination: General: Awake, alert, interactive, no acute distress, good nutritional status, normal development,well-kept General Neurological Examination: Neurological Exam Mental Status Awake and alert. Speech is normal. Language is fluent with no aphasia. Fund of knowledge is appropriate for level of education. Movement Disorders Scales Performed: MDS-UPDRS Motor subscale condition of exam Medication Off/On/Naiive ON Time of UPDRS 1502 Time of Last Medication 1300 Last Medication Taken DBS Right DBS Left MDS-UPDRS Motor subscale scores Speech 2-Mild. Loss of modulation, diction, or volume, with a few words unclear, but the overall sentences easy to follow. Facial Expression 1-Slight. Minimal masked facies manifested only by decreased frequency of blinking. Rigidity Neck 1-Slight. Rigidity only detected with activation maneuver. Rigidity Right Upper Extremity 1-Slight. Rigidity only detected with activation maneuver. Rigidity Left Upper Extremity 0-Normal. No rigidity. Rigidity Right Lower Extremity 0-Normal. No rigidity. Rigidity Left Lower Extremity 0-Normal. No rigidity. Finger Taps Right 2-Mild. a) 3 to 5 interruptions during tapping, b) mild slowing, c) the amplitudedecrements midway in the 10-tap sequence. Finger Taps Left 3-Moderate. a) more than 5 interruptions during tapping or at least one longer arrest (freeze) in ongoing movement, b) moderate slowing, c) the amplitude decrements starting after the 1st tap. Hand Movements Right 2-Mild. a) 3 to 5 interruptions during the movements, b) mild slowing, c) the amplitude decrements midway in the task. Hand Movements Left 3-Moderate. a) more than 5 interruptions during the movement or at least one longer arrest (freeze) in ongoing movement, b) moderate slowing, c) the amplitude decrements starting after the 1st [id number] sequence. Arm Movements Right 1-Slight. a) the regular rhythm is broken with one or two interruptions or hesitations of the movement, b) slight slowing, c) the amplitude decrements near the end of the sequence. Arm Movements Left 1-Slight. a) the regular rhythm is broken with one or two interruptions or hesitations of the movement, b) slight slowing, c) the amplitude decrements near the end of the sequence. Toe Taps Right 0-Normal. No problem. Toe Taps Left 2-Mild. a) 3 to 5 interruptions during the tapping movements, b) mild slowing, c) theamplitude decrements midway in the task. Leg Agility Right 1-Slight. a) the regular rhythm is broken with one or two interruptions or hesitations of the movement, b) slight slowing, c) the amplitude decrements near the end of the task. Leg Agility Left 1-Slight. a) the regular rhythm is broken with one or two interruptions or hesitations of the movement, b) slight slowing, c) the amplitude decrements near the end of the task. Arise From Chair 2-Mild. Pushes self up from arms of chair without difficulty. Gait 3-Moderate. Requires an assistance device for safe walking (walking stick, walker) but not a person. Gait Freezing 0-Normal. No freezing. Posture Stability 0-Normal. No problems: recovers with one or two steps. (deferred) Posture 4-Severe. Flexion, scoliosis or leaning with extreme abnormality of posture. Body Bradykinesia 2-Mild. Mild global slowness and poverty of spontaneous movements. Postural Tremor Hand Right 0-Normal. No tremor. Postural Tremor Hand Left 0-Normal. No tremor. Kinetic Tremor Right 0-Normal. No tremor. Kinetic Tremor Left 0-Normal. No tremor. Rest Tremor Amplitude Right Upper Extremity 0-Normal. No tremor. Rest Tremor Amplitude Left Upper Extremity 0-Normal. No tremor. Rest Tremor Amplitude Right Lower Extremity 0-Normal. No tremor. Rest Tremor Amplitude Right Lower Extremity 0-Normal. No tremor. Rest Tremor Amplitude Lip/Jaw 0-Normal. No tremor. Rest Tremor Constancy 0-Normal. No tremor. MDS-UPDRS Motor subscale totals Left Total 10 Right Total 7 Midline Total 15 Tremor Total / 10 0 PIGD Total / 3 3 Overall Total 32 % Change Compared to Last Filed Total Assessment and Plan: Assessment Ms. Phelps is a right-handed 81 year old year old female with tremor and unsteady gait with onset in the setting of Takotsubo cardiomyopathy. Main complaint is back pain. She does have elements of parkinsonism on exam. Suspect her symptoms are multifactorial. Differential includes neurodegenerative parkinsonism, depression, lumbar degenerative change with scoliosis. tremor and unsteady gait with onset in the setting of Takotsubo cardiomyopathy. She does have elements of parkinsonism on exam which are worse on her left side. Differential includes neurodegenerative parkinsonism, depression, lumbar degenerative change with scoliosis. Suspect her symptoms are multifactorial. Some improvement today compared to last visit. Unclear if improved due to Sinemet or PT.Will try increasing dose and if not helpful try tapering off. The following are the current problems noted and addressed during this visit: Parkinsonism, unspecified parkinsonism type (hcc) (primary encounter diagnosis) Unsteady gait Plan 08/01/2022 Visit: Can try increasing Sinemet (carbidopa-levodopa) to 1.5 tabs 3 times a day for 2 weeks assuming no side effects. If not helping then taper off it: 1 tab 3 times a day for 1 week, then 1/2 tab 3 times a day for 1 weeks, then STOP Updated Parkinson's Medication Schedule: Medications Sinemet 25/100 1 1 1 Level of service : 98450 (40-54 min). Time spent 47 min on the day of service, which included preparing to see the patient, [id number] patient care, completing clinical documentation, performing a medically appropriate examination, and counseling and educating the patient/family/caregiver. Thank you for allowing me to be part of the clinical care of this patient! I look forward to continued participation in the patient s care with you. Please do not hesitate to call with any questions. Sincerely, Kristy Cr MD documented in this encounterOur Lady Of Mercy Hospital12-19-2022 Instructions* Patient Instructions* Kristy Cr MD - 08/01/2022 3:20 PM EST It was a pleasure to see you today. We addressed the following diagnoses: My recommendations are as follows: Can try increasing Sinemet (carbidopa-levodopa) to 1.5 tabs 3 times a day for 2 weeks assuming no side effects. If not helping then taper off it: 1 tab 3 times a day for 1 week, then 1/2 tab 3 times a day for 1 weeks, then STOP Movement Disorders Medication Schedule: Medications Sinemet 25/100 1 1 1 If there are any concerns before your next visit, please call or you can send a message through [employer]. You can also now schedule and select appointments through [employer]. Kristy Cr MD documented in this encounterOur Lady Of Mercy Hospital12-05-2022 Miscellaneous Notes* Telephone Encounter - Monie Luis Aftab BARTH - 07/18/2022 3:47 PM EST Patient has been identified by name and date of : Yes Patient phones for refill(s): Requested Prescriptions Pending Prescriptions Disp Refills Cholecalciferol, Vitamin D3, 125 mcg (5,000 unit) cap 90 capsule 3 Sig: Take 1 capsule by mouth once daily. Date of last office visit in primary care: 05/10/2022 6 month follow-up: 09/05/2022 Last 2 Encounter Wt Readings: Date: Wt: 05/09/2022 68.9 kg (152 lb) 05/04/2022 69.1 kg (152 lb 4.8 oz) Previous labs/tests for medication: Not applicable Please advise. Thank you. Monie Ugalde LPN * Telephone Encounter - Sharlene Sharma - 07/18/2022 1:51 PM EST Patient has been identified by name and date of : Yes Requested Prescriptions Pending Prescriptions Disp Refills Cholecalciferol, Vitamin D3, 125 mcg (5,000 unit) cap 90 capsule 3 Sig: Take 1 capsule by mouth once daily. RX INSTRUCTIONS: Patient aware RX will be sent to pharmacy. No need to notify patient. Sharlene Sharma documented in this encounterOur Lady Of Mercy Hospital12-01-2022 History of Present illness Narrative* Renato Sheridna PT - 07/14/2022 12:06 AM EST Episode Visit Count: 9 Therapist That Will Accept/Oversee The Plan Of Care: Renato Sheridan PT Start of Care Date: 06/02/22 Onset Date: 06/02/21 (Postural deficits have been worsening for many years but pain worsened and became severe 1 year ago without explanation.) Plan of Care Certification Date: 06/02/22 Next Certification Due Date: 07/28/22 Patient Identified by Name and Date of : Yes [facility] PHYSICAL THERAPY DISCONTINUANCE OF CARE PLAN OF CARE UPDATE: Assessment: Breanna Phelps is discontinued from Physical Therapy services due to maximal benefit. and Patient/Clinician mutual decision to discontinue current plan of care.. Patient was seen for 9 visits from Start of Care Date: 06/02/22 to 07/14/2022 and treatment included: Therapeutic exercise, Neuromuscular re- education, Self-detention management, Patient/Family/Caregiver Education, and Generalconditioning. Updated: 07/13/22 Goals for Episode of Care: created on 06/02/22 through 07/28/22 Independent in home exercises. - MET Patient will decrease pain rating by 2 points to meet minimal clinical important difference for numeric pain rating scale. 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 - Not Met Sleep through night without pain/symptoms. - Not Met Sit without limitations, without pain/symptoms to allow for playing cards. - MET Patient will increase strength of core, postural muscles and LEs to WFL to allow for improve gait mechanics/gait pattern, improve ability to complete ADLs, and rise with less difficulty. - Partially Met Patient will report no falls. - MET Improve score on 30 Second Chair Stand to 9+ repetitions to reflect decreased fall risk. 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 - Partially Met She would like to increase sitting tolerance to play cards. - MET SUBJECTIVE: Patient Reason for Visit: Pt reports that she has been compliant with HEP 3x day. In regards to her pain patient reports that her low back, mid back and neck still hurt and tire easy. She is reluctant to call this pain but overall she does not feel symptomatically better since evaluation. Functionally, she reports that her ability with standing, walking, emanations analysis technician, sleeping, sitting and rising is unchanged since evaluation. She feels that overall she is better in some ways and worse in some ways. She reports that she fatigues easily with ADL completion at home but does not use walker at all times. She reports that her low back pain is still most severe in the morning when she is getting out of bed. She reports that she recently was able to play cards for 94-5 hours. She denies any falls.. Pain: Pain Pain Level: 0 Pain Location: Thoracic Spine;Low Back/Lumbar Spine - Right;Low Back/Lumbar Spine - Left Description: (Pt denies pain, just a tired hurt.) Post Treatment Pain Post Treatment Pain Level: No Change PROMIS Scales Higher is Better 05/02/2022 05/10/2022 Phys Func - Score 24 (severe dysfunction) - Phys Func - Percentile 0 % - Social Roles - Score 35 (moderate dysfunction) - Social Role - Percentile 7 % - GH Physical - Score 29.6 (Poor) 29.6 (Poor) GH Physical - Percentile 2 % 2 % GH Mental - Score 31.3 (Fair) 36.3 (Fair) GH Mental - Percentile 3 % 9 % T-scores: mean of general population = 50. 5 points is clinically meaningfully difference Percentiles provide an indication of how the patient's score ranks in relation to the general population. Higher percentile rankings indicate better function/quality of life. 50th percentile is the average of the general population and indicates half of respondents had a worse score. Lower is Better 05/02/2022 Fatigue - Score 76 (severe) Fatigue - Percentile 0 % T-scores: mean of general population = 50. 5 points is clinically meaningfully difference Percentiles provide an indication of how the patient's score ranks in relation to the general population. Higher percentile rankings indicate better function/quality of life. 50th percentile is the average of the general population and indicates half of respondents had a worse score. OBJECTIVE MEASURES WITH LEVEL OF FUNCTION: Posture / Alignment Posture: Forward head;Increased thoracic kyphosis;Rounded shoulders;Poor;Slump Sitting Posture: Slump;Poor;Increased thoracic kyphosis Spine Observations Spine presents with: extreme thoracic kyphosis. LE Strength Trunk Strength: Pt had improved ability with 30 second sit to stand test. R LE Strength: improved ability with rising L LE Strength: improved ability with rising Gait Gait Observation: Pt arrives with FWW with safe and correct technique Functional Performance Test Results 30 Second Chair Stand Test: 10 reps (9reps x1 and 10 reps x1) TREATMENT: Therapeutic Exercise: 1: Sci[employer] StepOne seat #10 x6 minutes (Pt provided an update on her condition) 2: repeated sit to stand from chair x9 and x10 without UE assist 3: *repeated sit to stand from chair with UE support and chair behind added to HEP 2x10 with SBA 4: Entire HEP was thoroughly reviewed, continuation encouraged to tolerance and rationale for each exercise explained. Pt was advised to back off or stop any exercise that causes increased pain 5: *seated at edge of mat table orange t-band perturbations 3x15 each, R, L and forward 6: *seated scapular retraction at edge of mat table with orange t-band 2x10 7: orange t-band issued for HEP completion and her son was educated on all d/c HEP instructions. Skilled Intervention: Patient was educated in proper exercise technique and purpose for exercises. Reviewed and educated patient on additions/changes for home exercise program as above (*). Skilled judgment was provided in selection of appropriate interventions. Provided written instruction for home exercise program to facilitate proper performance and compliance. Correct performance of therapeutic exercises was facilitated with verbal and visual cuing. Patient education as noted. Self-Senior Living Management: 1: Results of re-assessment were reviewed with patient and her son and used as rationale for all d/c recommendations. She was provided with therapist's contact information. She was advised to use herFWW at all times, even at home. Her increased fracture risk was discussed and used as rationale foruse of walker at home. Pt had many questions about many different complaints subjectively and functionally. Skilled Intervention: Skilled judgment in the selection of proper modification for activity of daily living/home management based on clinical presentation, deficits, and needs. Physical assistance was provided during education for modifications and patient safety. Reviewed patient specific diagnosis in relation to activities of daily living/home management. Billing Therapeutic Exercise Treatment Minutes: 30 Self-Care/Home Management Treatment Minutes: 30 Total Treatment Time Minutes (timed/untimed): 60 Renato Sheridan PT documented [facility] encounter[facility] History of Present illness Narrative* Renato Sheridan PT - 07/04/2022 5:18 PM EST Episode Visit Count: 8 Therapist That Will Accept/Oversee The Plan Of Care: Renato Sheridan PT Start of Care Date: 06/02/22 Onset Date: 06/02/21 (Postural deficits have been worsening for many years but pain worsened and became severe 1 year ago without explanation.) Plan of Care Certification Date: 06/02/22 Next Certification Due Date: 07/28/22 Patient Identified by Name and Date of : Yes REHABILITATION AND SPORTS THERAPY PHYSICAL THERAPY TREATMENT NOTE ASSESSMENT: Breanna Phelps tolerated the session with fatigue, expected muscle soreness, and no issues. She demonstrated difficulty with unexplained fatigue at home and improvements in exercise tolerance in PT. The patient will continue to benefit from ongoing skilled physical therapy to progress toward set goals and for reassessment by supervising therapist. PLAN FOR NEXT VISIT: Continue to progress exercises. Re-assess for plan of care update SUBJECTIVE: Patient Reason for Visit: Pt reports that overall she is feeling approximately the samebut that she tires very easily. 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 Pain: Pain Pain Level: 0 Pain Location: Thoracic Spine;Low Back/Lumbar Spine - Right;Low Back/Lumbar Spine - Left Post Treatment Pain Post Treatment Pain Level: No Change OBJECTIVE MEASURES WITH LEVEL OF FUNCTION: TREATMENT: Therapeutic Exercise: 1: SciFit StepOne seat #10 x6 minutes (Pt provided an update on her condition) 2: repeated sit to stand from mat table 18 inches high 2x6 3: standing posture perfect exercise against wall with 1 second hold 2x10 4: B forward step ups in // bars on square blue foam 2x10 B 5: seated at edge of mat table orange t-band perturbations 3x15 each, R, L and forward 6: seated scapular retraction at edge of mat table with orange t-band 2x10 Skilled Intervention: Patient was educated in proper exercise technique and purpose for exercises. Skilled judgment was provided in selection of appropriate interventions. Correct performance of therapeutic exercises was facilitated with verbal, visual, and tactile cuing. Patient education as noted. Billing Therapeutic Exercise Treatment Minutes: 45 Total Treatment Time Minutes (timed/untimed): 45 Renato Sheridan PT documented in this encounterOur [facility] History of Present illness Narrative* Renato Sheridan PT - 06/29/2022 2:23 PM EST Episode Visit Count: 7 Therapist That Will Accept/Oversee The Plan Of Care: Renato Sheridan PT Start of Care Date: 06/02/22 Onset Date: 06/02/21 (Postural deficits have been worsening for many years but pain worsened and became severe 1 year ago without explanation.) Plan of Care Certification Date: 06/02/22 Next Certification Due Date: 07/28/22 Patient Identified by Name and Date of : Yes REHABILITATION AND SPORTS THERAPY PHYSICAL THERAPY TREATMENT NOTE ASSESSMENT: Paralee Lenin tolerated the session with fatigue and expected muscle soreness. She demonstrated improvements in scapular retractions with activation of scapular muscles. The patient willcontinue to benefit from ongoing skilled physical therapy to progress toward set goals. PLAN FOR NEXT VISIT: Continue to progress exercises SUBJECTIVE: Patient Reason for Visit: pt reports she is just juan antonio tired today. Pt denies any pain atinitial encounter today. Pain: Pain Pain Level: 0 Pain Location: Thoracic Spine;Low Back/Lumbar Spine - Right;Low Back/Lumbar Spine - Left (lower thoracic and upper lumbar spines) OBJECTIVE MEASURES WITH LEVEL OF FUNCTION: Pt challenged with seated iso abs with alt arms. TREATMENT: Therapeutic Exercise: 1: SciFit StepOne seat #10 x5 minutes (pt provided an update on her condition and subjective collected.) 2: Standing at wall posture perfect to facilitate thoracic extension [id number] 3: Standing alt marching at walker 2x10 B 4: Seated iso abs with alt arms 2x10 B 6: seated thoracic extension over back of chair with wand shoulder elevation to facilitate pect stretching 5x15 second holds 7: seated scapular retraction 2x10 8: 30 second STS x10 with use of BUE Skilled Intervention: Patient was educated in proper exercise technique and purpose for exercises. Skilled judgment was provided in selection of appropriate interventions. Correct performance of therapeutic exercises was facilitated with verbal and visual cuing. Billing Therapeutic Exercise Treatment Minutes: 40 Total Treatment Time Minutes (timed/untimed): 40 DAVIAN Ayoub PT documented in this encounterOur [facility]11-[facility] History of Present illness Narrative* Renato Sheridan PT - 06/27/2022 3:46 PM EST Episode Visit Count: 6 Therapist That Will Accept/Oversee The Plan Of Care: Renato Sheridan PT Start of Care Date: 06/02/22 Onset Date: 06/02/21 (Postural deficits have been worsening for many years but pain worsened and became severe 1 year ago without explanation.) Plan of Care Certification Date: 06/02/22 Next Certification Due Date: 07/28/22 Patient Identified by Name and Date of : Yes REHABILITATION AND SPORTS THERAPY PHYSICAL THERAPY TREATMENT NOTE ASSESSMENT: Breanna Phelps tolerated the session with fatigue. She demonstrated improvements in standing balance. The patient will continue to benefit from ongoing skilled physical therapy to progress toward set goals. PLAN FOR NEXT VISIT: Continue to progress exercises SUBJECTIVE: Patient Reason for Visit: Pt reports she is tired today. Pt denies any falls Pain: Pain Pain Level: 0 Pain Location: Thoracic Spine;Low Back/Lumbar Spine - Right;Low Back/Lumbar Spine - Left (lower thoracic and upper lumbar spines) Post Treatment Pain Post Treatment Pain Level: No Change OBJECTIVE MEASURES WITH LEVEL OF FUNCTION: Limited sway noted with NBOS with EC x 30 seconds without UE support. TREATMENT: Therapeutic Exercise: 1: SciFit StepOne seat #10 x5 minutes (pt provided an update on her condition and subjective collected.) 2: Seated iso abs 2x5 wit h5 second holds 6: seated thoracic extension over back of chair 3x10 with 1.5# ankle weight 7: seated scapular retraction 2x10 Skilled Intervention: Patient was educated in proper exercise technique and purpose for exercises. Skilled judgment was provided in selection of appropriate interventions. Correct performance of therapeutic exercises was facilitated with verbal and visual cuing. Neuromuscular Re-Education: 1: Standing NBOS x 30 seconds 2: Partial tandem stance x 30 seconds B 3: [place] alt toe taps with BUE support 2x10 B 4: NBOS wit heyes closed x 30 seconds (minimal sway) Skilled Intervention: Skilled judgment used to assess appropriate program for balance and coordination activity. Ensured patient safety with use of gait belt. Billing Therapeutic Exercise Treatment Minutes: 23 Neuromuscular Re-Education Treatment Minutes: 17 Total Treatment Time Minutes (timed/untimed): 40 Cyndee Ryan, PATHOLOGY TEACHER Renato Sheridan PT documented in this encounterOur [facility]11-04-[facility] History of Present illness Narrative* Renato Sheridan PT - 06/17/2022 4:51 PM EDT Episode Visit Count: 3 Therapist That Will Accept/Oversee The Plan Of Care: Renato Sheridan PT Start of Care Date: 06/02/22 Onset Date: 06/02/21 (Postural deficits have been worsening for many years but pain worsened and became severe 1 year ago without explanation.) Plan of Care Certification Date: 06/02/22 Next Certification Due Date: 07/28/22 Patient Identified by Name and Date of : Yes REHABILITATION AND SPORTS THERAPY PHYSICAL THERAPY TREATMENT NOTE ASSESSMENT: Breanna Phelps tolerated the session with fatigue, expected muscle soreness, and no issues. She demonstrated difficulty with postural correction and balance exercises. The patient will continue to benefit from ongoing skilled physical therapy to progress toward set goals. PLAN FOR NEXT VISIT: Review, correct and progress HEP to tolerance. Continue comprehensive postural strengthening program. Continue balance training and gait training. Continue postural correction. SUBJECTIVE: Patient Reason for Visit: Pt is unable to determine whether she is feeling better, worse or the same since starting therapy. She reports compliance with HEP 2-3x day most days. She reports that HEP completion causes fatigue but does not cause increased pain that she can remember. Pt asked if she should continue using the heel lift in her right shoe that she has been using for 4-5 years. She does not remember who advised this or why. Pain: Pain Pain Level: 4 Pain Location: Thoracic Spine;Low Back/Lumbar Spine - Right;Low Back/Lumbar Spine - Left (lower thoracic and upper lumbar spines) Description: (it hurts) Frequency: Continuous Post Treatment Pain Post Treatment Pain Level: No Change Post Treatment Symptoms: During and after session pt reported fatigue but she denied any increase in pain as she was leaving. OBJECTIVE MEASURES WITH LEVEL OF FUNCTION: Posture / Alignment Posture: Forward head;Increased thoracic kyphosis;Rounded shoulders;Poor;Slump Scoliosis comment: no lateral curvature on x-ray LE Observations: No LLD in supine Spine Observations Spine presents with: extreme thoracic kyphosis. Observations Sitting Compensations: Increased thoracic kyphosis Gait Gait Observation: Pt arrives with FWW with very kyphotic posture and flexed trunk. TREATMENT: Therapeutic Exercise: 1: SciFit StepOne seat #10 x5 minutes (pt provided an update on her condition and subjective collected.) 2: seated B heel and toe raises 2x20 3: seated B alt hip flexion 2x10 with 1.5# ankle weight 4: seated B alt knee ext 2x10 with 1.5# ankle weight 5: seated scapular retraction 2x10 6: seated thoracic extension over back of chair 2x10 with 1.5# ankle weight 7: repeated sit to stand from chair 2x10 with UE assist. 8: HEP was reviewed and continuation encouraged to tolerance. She was advised to complete the previously established 5 exercises at home without additions and to stop if pain increases. Skilled Intervention: Patient was educated in proper exercise technique and purpose for exercises. Skilled judgment was provided in selection of appropriate interventions. Correct performance of therapeutic exercises was facilitated with verbal, visual, and tactile cuing. Neuromuscular Re-Education: 1: Pt was advised NOT to do any balance exercises at home secondary to increased risk of falling. She was instructed to only complete the 5 seated exercises. 2: NBOS eyes open x60 seconds 3: NBOS eyes closed x60 seconds 4: B tandem stance x30 seconds 5: B marching in place 2x10 Skilled Intervention: Skilled judgment used to assess appropriate program for balance and coordination activity. Ensured patient safety with use of gait belt and intermittent assist. Self-Senior Living Management: 1: Pt's questions about multiple complaints with accompanied functional limitations were listened to and therapist attempted to provide guidance. Based on her lack of LLD in supine, lack of scoliosison x-ray and her current posture, she was advised to discontinue use of the 1cm heel lift she has been using in her right shoe for 5 years. She was advised not to attempt to stand on a step stool to do dishes because this will require an even greater amount of trunk flexion. She was advised not to stand on a step stool to do dishes or to reach into high places because of the increased risk of falling with this as well. Her x-rays were reviewed with her and used as an explanation for the majority of her complaints and functional limitations. Pt verbalized understanding of all advice. Skilled Intervention: Skilled judgment in the selection of proper modification for activity of daily living/home management based on clinical presentation, deficits, and needs. Reviewed patient specific diagnosis in relation to activities of daily living/home management. Billing Therapeutic Exercise Treatment Minutes: 25 Neuromuscular Re-Education Treatment Minutes: 15 Self-Care/Home Management Treatment Minutes: 20 Total Treatment Time Minutes (timed/untimed): 60 Renato Sheridan PT documented in this encounterOur [facility]11-[facility]22 Miscellaneous Notes* Telephone Encounter - Natali Mcgovern - 06/16/2022 3:25 PM EDT Called and spoke to [place]. He agreed to new time. * Telephone Encounter - Kayy Barrera RN - 06/16/2022 12:13 PM EDT Message sent to PSS team to see if patient is able to change her appointment time on 08/01. Currently scheduled for 2p, would like to see if patient is agreeable to come at 230p instead, per GHANSHYAM. RYAN Garcia, RN June 16, 2022 12:13 PM documented in this encounterOur [facility]10-28-[facility]22 History of Present illness Narrative* Renato Ojedamadan, PT - 06/10/2022 5:53 PM EDT Episode Visit Count: 2 Therapist That Will Accept/Oversee The Plan Of Care: Renato Sheridan PT Start of Care Date: 06/02/22 Onset Date: 06/02/21 (Postural deficits have been worsening for many years but pain worsened and became severe 1 year ago without explanation.) Plan of Care Certification Date: 06/02/22 Next Certification Due Date: 07/28/22 Patient Identified by Name and Date of : Yes REHABILITATION AND SPORTS THERAPY PHYSICAL THERAPY TREATMENT NOTE ASSESSMENT: Breanna Phelps tolerated the session with fatigue, expected muscle soreness, and no issues. She demonstrated difficulty with postural correction. The patient will continue to benefit fromongoing skilled physical therapy to progress toward set goals. PLAN FOR NEXT VISIT: Review, correct and progress HEP to tolerance. Continue comprehensive postural strengthening program. Continue balance training and gait training. Continue postural correction. SUBJECTIVE: Patient Reason for Visit: Pt reports that overall she is feeling the same as she did atevaluation last week. She reports compliance with HEP 2-3x day. Pain: Pain Pain Level: (4-5/10) Pain Location: (all over) Description: (tired) Frequency: Continuous Post Treatment Pain Post Treatment Pain Level: No Change Post Treatment Pain Location: Low Back/Lumbar Spine - Left;Low Back/Lumbar Spine - Right Post Treatment Pain Description: (fatigue) Post Treatment Symptoms: After session pt reported fatigue across her low back but no increase in pain. OBJECTIVE MEASURES WITH LEVEL OF FUNCTION: Posture / Alignment Posture: Forward head;Increased thoracic kyphosis;Rounded shoulders;Scoliosis;Poor;Slump Spine Observations Spine presents with: extreme thoracic kyphosis. Observations Sitting Compensations: Increased thoracic kyphosis Gait Gait Observation: Pt arrives with FWW with very kyphotic posture and flexed trunk. TREATMENT: Therapeutic Exercise: 1: [place] [employer] Step[employer] seat #10 x5 minutes (pt provided an update on her condition and subjective collected.) 2: seated B heel and toe raises 2x20 3: seated B alt hip flexion 2x10 4: seated B alt knee ext 2x10 5: *seated scapular retraction 2x10 6: *seated thoracic extension over back of chair 2x10 7: repeated sit to stand from chair 2x10 8: HEP reviewed and pt was advised to do all therex seated and no standing exercises secondary to fall risk. Pt was advised to stop any exercise that causes increased pain Skilled Intervention: Patient was educated in proper exercise technique and purpose for exercises. Reviewed and educated patient on additions/changes for home exercise program as above (*). Skilled judgment was provided in selection of appropriate interventions. Provided written instruction for home exercise program to facilitate proper performance and compliance. Correct performance of therapeutic exercises was facilitated with verbal, visual, and tactile cuing. Patient education as noted. Self-Senior Living Management: 1: pt was advised that she should not be using a step stool to reach overhead in the kitchen, especially refrigerator. Skilled Intervention: Reviewed patient specific diagnosis in relation to activities of daily living/home management. Billing Therapeutic Exercise Treatment Minutes: 35 Self-Care/Home Management Treatment Minutes: 5 Total Treatment Time Minutes (timed/untimed): 40 Renato Sheridan PT documented in this encounterOur [facility]10-28-[facility] History of Past illness Narrative* Problem Noted Date Diagnosed Date Resolved Date Palpitations 06/10/2022 05/15/2023 05/31/2023 Neck pain 06/02/2022 05/31/2023 Pain in thoracic spine 06/02/202205/31 Tremor 11/25/2021 05/31/2023 Takotsubo cardiomyopathy 03/25/2021 Last Assessment & Plan: Assessment: controlled on rx, last Echo EF 65% 02/2022 echo History of left heart catheterization 03/25/202109/202205/31/2023 Adjustment disorder with depressed mood 10/23/2019 10/01/2020 Obesity, Class I, BMI 30-34.9 02/07/2018 09/19/2019 Dry mouth 08/17/2016 09/14/2018 Chronic nonallergic rhinitis 03/07/2016 09/14/2018 Hypersomnia 03/17/2014 09/29/2015 Overview: Dr. Worrell Primary generalized (osteo)arthritis 07/31/2012 09/14/2018 Overview: Affecting hands and feet Pain in limb 05/14/2012 09/14/2012 Cervical spondylosis with radiculopathy 05/14/2012 09/29/2015 YAMILETH (obstructive sleep apnea) 04/17/2012 03/17/2014 Overview: Per Dr Worrell. Sleep study 04/09/12. Mild. Not on CPAP. 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 11/22/2011 1 05/31/2023 Vertigo 12/28/2010 09/14/2012 Skin infection 01/07/2010 09/14/2012 Derangement of meniscus, not elsewhere classified 03/25/2008 09/14/2012 Sprain of neck 08/10/2007 06/24/2008 Sprain and strain of unspeci fied site of shoulder and upper arm 08/10/2007 06/24/2008 Sprain and strain of unspeci fied site of knee and leg 08/10/2007 09/14/2012 Contusion of unspecified site 08/10/2007 06/24/2008 Impaired fasting glucose Obesity, unspecified 018 documented as of this encounter (statuses as of 06/18/2023) [facility] of Present illness Narrative* Renato Sheridan PT - 06/02/2022 11:51 PM EDT Episode Visit Count: 1 Therapist That Will Accept/Oversee The Plan Of Care: Renato Sheridan PT Start of Care Date: 06/02/22 Onset Date: 06/02/21 (Postural deficits have been worsening for many years but pain worsened and became severe 1 year ago without explanation.) Plan of Care Certification Date: 06/02/22 Next Certification Due Date: 07/28/22 Patient Identified by Name and Date of : Yes REHABILITATION AND SPORTS THERAPY PHYSICAL THERAPY EVALUATION PLAN OF CARE: Assessment: Breanna Phelps presents with diagnosis of neck, mid back and low back pain secondary topostural deficits that interferes with sitting;standing;walking;reaching overhead;rising from a chair. She presents with impairments in ADL's, balance, gait, independence in exercise, overall function, posture, strength , and symptom management. Prognosis for therapy is Good due to: good support system/ coping skills;current objective clinical presentation;Prognosis may be limited due to chronic nature of impairments;clinical presentation. She will benefit from skilled therapy services to meet the goals established for this plan of care as noted below. Classification Low Back Pain Subgroup Classification: Core stabilization subgroup: recommended visits 10. Core Stabilization Subgroup Classification based on: pain with transitional movements (pain with prolonged positions) Goals for Episode of Care: created on 06/02/22 through 07/28/22 Independent in home exercises. Patient will decrease pain rating by 2 points to meet minimal clinical important difference for numeric pain rating scale. 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 Sleep through night without pain/symptoms. Sit without limitations, without pain/symptoms to allow for playing cards. Patient will increase strength of core, postural muscles and LEs to WFL to allow for improve gait mechanics/gait pattern, improve ability to complete ADLs, and rise with less difficulty. Patient will report no falls. Improve score on 30 Second Chair Stand to 9+ repetitions to reflect decreased fall risk. 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 She would like to increasesitting tolerance to play cards. Planned Interventions, Frequency, and Duration: Current Frequency: 2x/week Duration: 8 weeks Total Number of Visits Planned: 16 Planned Treatment Interventions: Therapeutic exercise (80070);Neuromuscular re- education (05143);Manual therapy (38693);Therapeutic activities (11949);Self- detention management (41762);Gait Training (25092);Patient/Family/Caregiver Education;Body Mechanics Training;General Conditioning PLAN FOR NEXT VISIT: Review, correct and progress HEP to tolerance. Begin comprehensive postural strengthening program. Consider balance training and gait training. Continue postural correction. Patient demonstrates good understanding of plan of care and treatment. The above goals and plan of care were discussed and agreed upon by patient/family. SUBJECTIVE: Breanna Phelps is a 81 year old female seen today for chronic postural decline with intermittent pain across low back and tiredness in upper back. 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 She would like to increasesitting tolerance to play cards. Functional Limitations: sitting;standing;walking;reaching overhead;rising from a chair Prior Level of Function: Independent with restrictions Independent with the following restrictions: chronic postural deficits that limit functional activity tolerance. 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 Hobbies / Interests: she likes to play cards Home Environment Patient Lives With: Spouse;Family (adult son) Assistance Available: Part-Time Home Type: Multi-Level with First Floor Set-Up Entry To Home: Stairs;With Rail Number Of Stairs Into Home: 2 (One large and one standard step) Equipment Owned: Wheeled Walker;Cane Intake Information: Prescription present Previous Treatment: Physical Therapy (Home care PT after hospital discharge) Red Flags Vertebral Fracture Red Flags: Female;Age >70 Vertebral Fracture Clinical Reasoning: Proceed with caution due to the above (1- 2) risk factors Abdominal Aortic Aneurysm Clinical Reasoning: No identified risk factors. Cancer Clinical Reasoning: No identified risk factors. Infection Clinical Reasoning: No identified risk factors. Red Flags - Cervical Cancer Clinical Reasoning: No identified risk factors. Infection Clinical Reasoning: No identified risk factors. Spine History Symptoms Location at Onset: Back Symptoms Since Onset: Worsening Pain is Worse Always: Lying;Prolonged positions Sleeping Position: Supine Sleep Affected by Pain: Pain keeps from falling asleep;Pain awakens Pain: Pain Pain Level: 5 Pain Location: Low Back/Lumbar Spine - Right;Low Back/Lumbar Spine - Left Description: Aching;Dull (tired) Frequency: Continuous (constant but varies in intensity) Post Treatment Pain Post Treatment Pain Level: No Change PROMIS Scales Higher is Better 05/02/2022 05/10/2022 Phys Func - Score 24 (severe dysfunction) - Phys Func - Percentile 0 % - Social Roles - Score 35 (moderate dysfunction) - Social Role - Percentile 7 % - GH Physical - Score 29.6 (Poor) 29.6 (Poor) GH Physical - Percentile 2 % 2 % GH Mental - Score 31.3 (Fair) 36.3 (Fair) GH Mental - Percentile 3 % 9 % T-scores: mean of general population = 50. 5 points is clinically meaningfully difference Percentiles provide an indication of how the patient's score ranks in relation to the general population. Higher percentile rankings indicate better function/quality of life. 50th percentile is the average of the general population and indicates half of respondents had a worse score. Lower is Better 05/02/2022 Fatigue - Score 76 (severe) Fatigue - Percentile 0 % T-scores: mean of general population = 50. 5 points is clinically meaningfully difference Percentiles provide an indication of how the patient's score ranks in relation to the general population. Higher percentile rankings indicate better function/quality of life. 50th percentile is the average of the general population and indicates half of respondents had a worse score. OBJECTIVE MEASURES WITH LEVEL OF FUNCTION: Posture / Alignment Posture: Forward head;Increased thoracic kyphosis;Rounded shoulders;Scoliosis;Poor;Slump Tragus to wall (inches): 11.5 inches Sitting Posture: Slump;Poor;Increased thoracic kyphosis Spine Observations Spine presents with: extreme thoracic kyphosis. Observations Sitting Compensations: Increased thoracic kyphosis LE Strength Trunk Strength: Pt's functional difficulties and extreme postural deficits indicate that she will benefit from increased core and postural strength as well as functional LE strengthening. Gait Gait Observation: Pt arrives with FWW with very kyphotic posture and flexed trunk. Functional Performance Test Results 30 Second Chair Stand Test: 8 reps Education: Education Learning Preferences: Demonstration;Explanation;Performance;Printed Materials Barriers: None Learning/educational needs: Safety;Gait Training;Plan of Care;Home exercise program;Posture;Body Mechanics Education Provided: Yes, see treatment interventions for education provided Education Provided To: Patient;Family (Pt's adult son present) Education Mode/Type: Explanation/Discussion;Demonstration;Literature/Printed Materials;Performance Response to Education/Teach Back: States/Identifies;Return Demonstration;Requires Review/AdditionalEducation TREATMENT: PT Treatment Interventions: Therapeutic Exercise;Self-Senior Living Management Evaluation Therapeutic Exercise: 1: Pt was advised to only complete the seated exercises for now and to stop any exercise that causes pain 2: *seated B heel and toe raises x20 3: *seated B alt hip flexion x10 4: *seated B alt knee ext x10 Skilled Intervention: Patient was educated in proper exercise technique and purpose for exercises. Reviewed and educated patient on additions/changes for home exercise program as above (*). Skilled judgment was provided in selection of appropriate interventions. Provided written instruction for home exercise program to facilitate proper performance and compliance. Correct performance of therapeutic exercises was facilitated with verbal, visual, and tactile cuing. Patient education as noted. Self-Senior Living Management: 1: Pt was educated on the role of PT and realistic expectations. Pt and her son were included in all education. Pt was educated on postural correction and it's importance. Pt was advised that she should use FWW at all times. Pt questions about walker wheels and tennis balls for back legs were answered. Recommendations made. Skilled Intervention: Skilled judgment in the selection of proper modification for activity of daily living/home management based on clinical presentation, deficits, and needs. Reviewed patient specific diagnosis in relation to activities of daily living/home management. Billing * Evaluation Low Complexity: 1 Unit Therapeutic Exercise Treatment Minutes: 15 Self-Care/Home Management Treatment Minutes: 15 Total Treatment Time Minutes (timed/untimed): 50 Renato Sheridan PT documented in this encounter[facility] Instructions* Patient Instructions* Maral Moody APRN.FLAG CAR DRIVER - 05/10/2022 1:31 PM EDT FACT SHEET FOR PATIENTS, PARENTS, AND CAREGIVERS EMERGENCY USE AUTHORIZATION (EUA) OF PAXLOVID FOR CORONAVIRUS DISEASE 2019 (COVID-19) You are being given this Fact Sheet because your healthcare provider believes it is necessary to provide you with PAXLOVID for the treatment of ahmf-br-lsrjqwco coronavirus disease (COVID-19) caused by the SARS-CoV-2 virus. This Fact Sheet contains information to help you understand the risks and benefits of taking the PAXLOVID you have received or may receive. The U.S. Food and Drug Administration (FDA) has issued an Emergency Use Authorization (EUA) to makePAXLOVID available during the COVID-19 pandemic (for more details about an EUA please see What is an Emergency Use Authorization? at the end of this document). PAXLOVID is not an FDA-approved medicine in the [place]. Read this Fact Sheet for information about PAXLOVID. Talk to your healthcareprovider about your options or if you have any questions. It is your choice to take PAXLOVID. What is COVID-19? COVID-19 is caused by a virus called a coronavirus. You can get COVID-19 through close contact withanother person who has the virus. COVID-19 illnesses have ranged from very kzsj-rj-dfqbev, including illness resulting in . While information so far suggests that most COVID-19 illness is mild, serious illness can happen and maycause some of your other medical conditions to become worse. Older people and people of all ages with severe, long lasting (chronic) medical conditions like heart disease, lung disease, and diabetes,for example seem to be at higher risk of being hospitalized for COVID-19. What is PAXLOVID? PAXLOVID is an investigational medicine used to treat vadz-xs-gvjzncyk COVID-19 in adults and children [12 years of age and older weighing at least 88 pounds (40 kg)] with positive results of direct SARS-CoV-2 viral testing, and who are at high risk for progression to severe COVID-19, including hospitalization or . PAXLOVID is investigational because it is still being studied. There is limited information about the safety and effectiveness of using PAXLOVID to treat people with fnsb-uj-qgzflxfs COVID-19. The FDA has authorized the emergency use of PAXLOVID for the treatment of lsiu-bq-uswktvce COVID-19in adults and children [12 years of age and older weighing at least 88 pounds (40 kg)] with a positive test for the virus that causes COVID-19, and who are at high risk for progression to severe COVID-19, including hospitalization or , under an EUA. 1 Revised: 29 October 2021 What should I tell my healthcare provider before I take PAXLOVID? Tell your healthcare provider if you: Have any allergies Have liver or kidney disease Are or plan to become Are a child Have any serious illnesses Tell your healthcare provider about all the medicines you take, including prescription and vgtg-izh-fsqhmqc medicines, vitamins, and herbal supplements. Some medicines may interact with PAXLOVID and may cause serious side effects. Keep a list of your medicines to show your healthcare provider and pharmacist when you get a new medicine. You can ask your healthcare provider or pharmacist for a list of medicines that interact with PAXLOVID. Do not start taking a new medicine without telling your healthcare provider. Your healthcare provider can tell you if it is safe to take PAXLOVID with other medicines. Tell your healthcare provider if you are taking combined hormonal contraceptive. PAXLOVID may affect how your control pills work. Females who are able to become should use another effective alternative form of contraception or an additional barrier method of contraception. Talk to your healthcare provider if you have any questions about contraceptive methods thatmight be right for you. How do I take PAXLOVID? PAXLOVID consists of 2 medicines: nirmatrelvir and ritonavir. Take 2 pink tablets of nirmatrelvir with 1 white tablet of ritonavir by mouth 2 times each day (in the morning and in the evening) for 5 days. For each dose, take all 3 tablets at the same time. If you have kidney disease, talk to your healthcare provider. You may need a different dose. Swallow the tablets whole. Do not chew, break, or crush the tablets. Take PAXLOVID with or without food. Do not stop taking PAXLOVID without talking to your healthcare provider, even if you feel better. If you miss a dose of PAXLOVID within 8 hours of the time it is usually taken, take it as soon as you remember. If you miss a dose by more than 8 hours, skip the missed dose and take the next dose atyour regular time. Do not take 2 doses of PAXLOVID at the same time. If you take too much PAXLOVID, call your healthcare provider or go to the nearest hospital emergency room right away. If you are taking a ritonavir-or cobicistat-containing medicine to treat hepatitis C or Human Immunodeficiency Virus (HIV), you should continue to take your medicine as prescribed by your healthcare provider. Talk to your healthcare provider if you do not feel better or if you feel worse after 5 days. Who should generally not take PAXLOVID? Do not take PAXLOVID if: You are allergic to nirmatrelvir, ritonavir, or any of the ingredients in PAXLOVID You are taking any of the following medicines: Alfuzosin Pethidine, propoxyphene Ranolazine Amiodarone, dronedarone, flecainide, propafenone, quinidine Colchicine Lurasidone, pimozide, clozapine Dihydroergotamine, ergotamine, methylergonovine Lovastatin, simvastatin Sildenafil (Revatio ) for pulmonary arterial hypertension (PAH) Triazolam, oral midazolam Apalutamide Carbamazepine, phenobarbital, phenytoin Rifampin Hemphill s Wort (hypericum perforatum) Taking PAXLOVID with these medicines may cause serious or life-threatening side effects or affect how PAXLOVID works. These are not the only medicines that may cause serious side effects if taken with PAXLOVID. PAXLOVID may increase or decrease the levels of multiple other medicines. It is very important to tell your healthcare provider about all of the medicines you are taking because additional laboratory tests or changes in the dose of your other medicines may be necessary while you are taking PAXLOVID. Your healthcare provider may also tell you about specific symptoms to watch out for that may indicate that you need to stop or decrease the dose of some of your other medicines. What are the important possible side effects of PAXLOVID? Possible side effects of PAXLOVID are: Allergic Reactions. Allergic reactions can happen in people taking PAXLOVID, even after only 1 dose. Stop taking PAXLOVID and call your healthcare provider right away if you get any of the following symptoms of an allergic reaction: hives trouble swallowing or breathing swelling of the mouth, lips, or face throat tightness hoarseness skin rash Liver Problems. Tell your healthcare provider right away if you have any of these signs and symptoms of liver problems: loss of appetite, yellowing of your skin and the whites of eyes (jaundice), dark-colored urine, pale colored stools and itchy skin, stomach area (abdominal) pain. Resistance to HIV Medicines. If you have untreated HIV infection, PAXLOVID may lead to some HIV medicines not working as well in the future. Other possible side effects include: altered sense of taste diarrhea high blood pressure muscle aches These are not all the possible side effects of PAXLOVID. Not many people have taken PAXLOVID. Serious and unexpected side effects may happen. PAXLOVID is still being studied, so it is possible that all of the risks are not known at this time. What other treatment choices are there? Veklury (remdesivir) is FDA-approved for the treatment of xvdy-au-fnduzecb COVID-19 in certain adults and children. Talk with your doctor to see if Veklury is appropriate for you. Like PAXLOVID, FDA may also allow for the emergency use of other medicines to treat people with COVID-19. Go to https://www.fda.gov/keanvrjfw-cmgxhuqyqlsm-crsrxywlvec/mce-omzzn-woxedazqft-and- policy-framework/mheuohnkc-adt-kyyclogkcsdqn for information on the emergency use of other medicines that are authorized by FDA to treat people with COVID-19. Your healthcare provider may talk with you aboutclinical trials for which you may be eligible. It is your choice to be treated or not to be treated with PAXLOVID. Should you decide not to receive it or for your child not to receive it, it will not change your standard medical care. What if I am or ? There is noc engineer treating women or mothers with PAXLOVID. For a motherand unborn baby, the benefit of taking PAXLOVID may be greater than the risk from the treatment. Ifyou are , discuss your options and specific situation with your healthcare provider. It is recommended that you use effective barrier contraception or do not have sexual activity whiletaking PAXLOVID. If you are , discuss your options and specific situation with your healthcare provider. How do I report side effects with PAXLOVID? Contact your healthcare provider if you have any side effects that bother you or do not go away. Report side effects to FDA MedWatch at www.fda.gov/medwatch or call 4-763-VVR1948 or you can reportside effects to [employer]. at the contact information provided below. Website Fax number Telephone number [employer] How should I store PAXLOVID? Store PAXLOVID tablets at room temperature, between 68?F to 77?F (20?C to 25?C). How can I learn more about COVID-19? Ask your healthcare provider. Visit https://www.cdc.gov/COVID19. Contact your local or state public health department. What is an Emergency Use Authorization (EUA)? The [place] FDA has made PAXLOVID available under an emergency access mechanism called an Emergency Use Authorization (EUA). The EUA is supported by a [place] of Health and Human Service (HHS) declaration that circumstances exist to justify the emergency use of drugs and biological productsduring the COVID-19 pandemic. PAXLOVID for the treatment of mhxn-tw-jqfyhcwh COVID-19 in adults and children [12 years of age andolder weighing at least 88 pounds (40 kg)] with positive results of direct SARS-CoV-2 viral testing, and who are at high risk for progression to severe COVID-19, including hospitalization or , has not undergone the same type of review as an FDA-approved product. In issuing an EUA under the COVID-19 public health emergency, the FDA has determined, among other things, that based on the total amount of scientific evidence available including data from adequate and well-controlled clinical trials, if available, it is reasonable to believe that the product may be effective for diagnosing, treating, or preventing COVID-19, or a serious or life-threatening disease or condition caused by COVID-19; that the known and potential benefits of the product, when used to diagnose, treat, or prevent such disease or condition, outweigh the known and potential risks of such product; and that there are no adequate, approved, and available alternatives. All of these criteria must be met to allow for the product to be used in the treatment of patients during the COVID-19 pandemic. The EUA for PAXLOVID is in effect for the duration of the COVID-19 declaration justifying emergency use of this product, unless terminated or revoked (after which the products may no longer be used under the EUA). Additional Information For general questions, visit the website or call the telephone number provided below. Website Telephone number www.[employer] (8-667-G04-PACK) You can also go to [email or web address] or call for more information. Pfizer Distributed by [employer] [place] [address] [id number] Revised: 29 October 2021 documented in [facility] encounter[facility] History of Present illness Narrative* Maral Moody APRN.CNP - 05/10/2022 1:25 PM EDT This Team Access Model visit is a phone encounter. It required patient-provider interaction for themedical decision making as documented below. Patient agrees to the visit: Yes Patient Location: [place] CC: Patient presents with: Covid19 Concern HPI: Breanna Phelps is a 81 year old female who is contacted today for a phone visit. This is an established patient of Dr. Juan J Hi MD. COVID positive test on 05/09/22, day 4 of symptoms. Symptoms are mild to moderate. Seen in urgent care yesterday, no worsening symptoms. REVIEW OF SYSTEMS See HPI PAST MEDICAL HISTORY Diagnosis Date Acid reflux Adjustment disorder with depressed mood Adjustment disorder with depressed mood Adjustment disorder with mixed anxiety and depressed mood Anemia Asthma CAD (coronary artery disease) 11/24/2011 Cervical spondylosis with radiculopathy 05/14/2012 CHOLECYSTITIS SEE ALSO GALLBLADDER ACUTE WITH CALCULUS( Without obstruction) 12/11/2008 DERANGEMENT MENISCUS NEC 03/25/2008 Diaphragmatic hernia without mention of obstruction or gangrene Disorder of bone and cartilage, unspecified 06/06/2007 Osteopenia Diverticulosis of colon (without mention of hemorrhage) Dry eyes, bilateral Essential hypertension, benign High cholesterol Hypersomnia 03/17/2014 Dr. Worrell Hypertension Impaired fasting glucose Lumbago Miscarriage NSTEMI (non-ST elevated myocardial infarction) (HCC) 03/25/2021 Obesity, unspecified YAMILETH (obstructive sleep apnea) 04/17/2012 Other and unspecified hyperlipidemia Rheumatic fever Small fiber neuropathy 04/03/2012 Takotsubo cardiomyopathy 03/25/2021 Ulcer disease Unspecified asthma(493.90) 11/24/2005 Unspecified vitamin D deficiency 07/04/2008 Urge incontinence 08/17/2016 Vertigo 12/28/2010 Vitamin B deficiency PAST SURGICAL HISTORY Procedure Laterality Date APPENDECTOMY 1967 ARTHROSCOPY KNEE DIAGNOSTIC W/WO SYNOVIAL BX SPX Right 12/2007 Arthroscopy, knee, right knee. COLONOSCOPY FLX DX W/COLLJ SPEC WHEN PFRMD 03/09/2012 Colonoscopy ESOPHAGOGASTRODUODENOSCOPY TRANSORAL DIAGNOSTIC 03/09/2012 EGD LAPS SURG CHOLECYSTECTOMY W/CHOLANGIOGRAPHY 11/29/2008 LEFT HEART CATH,PERCUTANEOUS 03/25/2021 REM LESIO TRUNK,ARM,LEG 1.1 -2.0CM 01/27/2010 Exc. RLQ skin lesion TOTAL ABDOMINAL HYSTERECT W/WO RMVL TUBE OVARY 1967 TRANSCATH STENT INIT VESSEL,PERCUT 11/24/2011 Transcath stent init vessel percut, LAD ALLERGIES Patient has no known allergies. MEDICATIONS oxybutynin ER (DITROPAN XL) 15 mg 24 hr Extended Rel Tab Take 1 tablet by mouth once daily. carbidopa-levodopa (SINEMET 25-100) 25-100 mg per tablet Take 0.5 tablets by mouth three times daily for 7 days, THEN 1 tablet three times daily for 7 days, THEN 1.5 tablets three times daily for 7 days, THEN 2 tablets three times daily. Take at mealtimes. Stop increasing the dose at any point yoursymptoms are controlled. DULoxetine (CYMBALTA) 30 mg capsule Take 1 capsule by mouth once daily. carvedilol (COREG) 12.5 mg tablet Take 1 tablet by mouth twice daily. folic acid/multivit-min/lutein (CENTRUM SILVER ORAL) Take by mouth once daily. traMADol (ULTRAM) 50 mg tablet Take 1 tablet by mouth twice daily. For back pain. (Patient taking differently: Take 50 mg by mouth twice daily as needed. For back pain.) lisinopril (ZESTRIL, PRINIVIL) 10 mg tablet Take 1 tablet by mouth once daily. Cholecalciferol, Vitamin D3, 125 mcg (5,000 unit) cap Take 1 capsule by mouth once daily. acetaminophen (TYLENOL) 500 mg tablet Take 1 tablet by mouth every 6 hours as needed for pain. atorvastatin (LIPITOR) 40 mg tablet Take 1 tablet by mouth once daily. nitroglycerin sublingual (NITROQUICK) 0.4 mg SL tablet Dissolve 1 tablet under the tongue every 5 minutes as needed for Chest Pain. Incontinence Pad, Liner, Disp pads 5 Each once daily. nystatin (MYCOSTATIN) powder Apply 1 application to affected area three times daily. Aspirin 81 mg ORAL Tab Take 1 tablet by mouth once daily. Take with food. FAMILY HISTORY Problem Relation Age of Onset other (heart attack) Mother other (TB) Father Diabetes Maternal Grandfather Breast Cancer Sister other (lung cancer) Brother Coronary Artery Disease Brother Genitourinary () Brother hemodialysis Stroke Sister IC aneurysm Alzheimer's Disease Sister Psoriasis Sister Social History Tobacco Use Smoking status: Never Smokeless tobacco: Never Vaping Use Vaping Use: Never used Substance Use Topics Alcohol use: No Drug use: No Exam Deferred physical exam as visit was completed over the phone Patient is speaking in complete sentences without obvious respiratory distress or audible wheezing. ASSESSMENT/PLAN: 1. COVID-19 virus infection - ICD9: 079.89, ICD10: U07.1 Nirmatrelvir/Ritonavir (Paxlovid) Eligibility and Patient Discussion [facility] Formulary Restriction Criteria: Adult outpatients 18 years and older with ALL of the following: [x] Patient has positive SARS-COV-2 viral test (PCR or antigen test) during current illness [x] Patient has symptoms for 5 days or less [x] Not requiring hospitalization at any time for management of COVID-19 [x] Not requiring supplemental oxygen or a change in baseline supplemental oxygen [x] Not utilized for pre-exposure or post-exposure prophylaxis for prevention of COVID-19 [x] Patient does not have severe renal impairment (eGFR < 30 mL/min) or severe hepatic impairment (Child-[employer] Class C) [x] Meeting at least one of the criteria for high risk of progression to severe COVID-19: [x] Age over 65 years [] Cancer [] Chronic kidney disease [] Chronic liver disease [] Chronic lung diseases, including cystic fibrosis [] Dementia or other neurological conditions [] Diabetes (type 1 or type 2) [] Disabilities, including Down syndrome and neurodevelopmental disorders [x] Heart conditions [] HIV infection [] Immunocompromised state [] Mental health conditions [] Medical related technological dependence (tracheostomy, gastrostomy, or positive pressure ventilation (not related to COVID) [] Overweight and obesity (BMI greater or equal to 25 for adults) [] Physical inactivity [] [] Sickle cell disease or thalassemia [] Smoking, current or former [] Solid organ or blood stem cell transplant [] Stroke or cerebrovascular disease [] Substance use disorders [] Tuberculosis [] People from racial and ethnic minority groups Criteria above are met: Yes Date of Positive Test:05/09/22 Date of Symptom Onset: 05/07/22 Patient received COVID vaccine: Yes Drug-Drug interactions reviewed: Yes. Drug interactions were identified and the following actions were taken : advised to hold Lipitor while taking Paxlovid. I have discussed the use of the investigational therapeutic, nirmatrelvir/ritonavir, for the treatment of mild to moderate COVID-19 and its use under Emergency Use Authorization with the patient. The patient was informed that nirmatrelvir/ritonavir is not an FDA approved drug and that it is authorized for use under this Emergency Use Authorization. The patient was also informed of the significant known benefits and potential risks of nirmatrelvir/ritonavir, and the extent to which such potential risks and benefits are unknown. The patient was informed that there is mandatory reporting of all medication errors and serious adverse events potentially related to nirmatrelvir/ritonavir treatment within 7 calendar days from the onset of the event and that events up to 28 days after completion of therapy need to be reported. The discussion included alternatives to receiving nirmatrelvir/rit onavir, including clinical trials, and potential the risks and benefits of those alternatives. The patient was provided electronically with the Fact Sheet for Patients, Parents and Caregivers. The patient was also instructed that in addition to the treatment with nirmatrelvir/ritonavir, he/she should continue to self-isolate and use infection control measures (e.g., wear mask, isolate, social distance, avoid sharing personal items, clean and disinfect high touch surfaces, and frequent h andwashing) according to CDC guidelines. The patient stated understanding and gave verbal consent to proceeding with nirmatrelvir/ritonavir treatment. Maral Moody APRN.CNP May 10, 2022 2:03 PM Prescription instructions reviewed with patient as applicable. Potential red flag symptoms discussed with the patient. Reviewed appropriate action plan to take if red flag symptoms occur. Patient agreeable to treatment plan. During this patient visit I have spent approximately 15 minutes in counseling regarding treatment options, medications, and coordinating care. Maral Moody APRN.CNP documented in this encounterOur [facility] Miscellaneous Notes* Telephone Encounter - Alice Maddy - 05/10/2022 9:46 AM EDT Patient given results and verbalized understanding of instructions given. Transferred to appt line. Alice Castañeda * Telephone Encounter - Destiny Chandler APRN.CNP - 05/10/2022 9:19 AM EDT Patient has tested + for COVID. Please review CDC masking guidelines Supportive measures. She is eligible for antiviral therapy, if she wishes please transfer her to scheduling to get an appointment in the next 24 hours with PCP. documented in this encounterOur Lady Of [facility]09-26-2022 History of Present illness Narrative* Teofilo Tom MD - 05/09/2022 12:02 PM EDT Patient presents with: Nasal Congestion: drainage, cough and bodyaches x 2 days HPI: Feeling sick starting 2 days ago. Her is currently admitted to the hospital with COVID. Positive symptoms: Cough, Nasal Congestion, Rhinorrhea, Post nasal drainage, Body Aches, Malaise, Nausea, Vomiting, temp <100, pulse ox 91 with activity Negative symptoms: Shortness of breath, Sore throat, Fever, Diarrhea, OTC: Tylenol, vitamin C, zinc Had third dose of [employer] COVID-19 vaccine in October. Has not had a recent COVID test. PAST MEDICAL HISTORY Diagnosis Date Acid reflux Adjustment disorder with depressed mood Adjustment disorder with depressed mood Adjustment disorder with mixed anxiety and depressed mood Anemia Asthma CAD (coronary artery disease) 11/24/2011 Cervical spondylosis with radiculopathy 05/14/2012 CHOLECYSTITIS SEE ALSO GALLBLADDER ACUTE WITH CALCULUS( Without obstruction) 12/11/2008 DERANGEMENT MENISCUS NEC 03/25/2008 Diaphragmatic hernia without mention of obstruction or gangrene Disorder of bone and cartilage, unspecified 06/06/2007 Osteopenia Diverticulosis of colon (without mention of hemorrhage) Dry eyes, bilateral Essential hypertension, benign High cholesterol Hypersomnia 03/17/2014 Dr. Worrell Hypertension Impaired fasting glucose Lumbago Miscarriage NSTEMI (non-ST elevated myocardial infarction) (HCC) 03/25/2021 Obesity, unspecified YAMILETH (obstructive sleep apnea) 04/17/2012 Other and unspecified hyperlipidemia Rheumatic fever Small fiber neuropathy 04/03/2012 Takotsubo cardiomyopathy 03/25/2021 Ulcer disease Unspecified asthma(493.90) 11/24/2005 Unspecified vitamin D deficiency 07/04/2008 Urge incontinence 08/17/2016 Vertigo 12/28/2010 Vitamin B deficiency MEDICATIONS: Current Outpatient Medications Medication Sig oxybutynin ER (DITROPAN XL) 15 mg 24 hr Extended Rel Tab Take 1 tablet by mouth once daily. carbidopa-levodopa (SINEMET 25-100) 25-100 mg per tablet Take 0.5 tablets by mouth three times daily for 7 days, THEN 1 tablet three times daily for 7 days, THEN 1.5 tablets three times daily for 7 days, THEN 2 tablets three times daily. Take at mealtimes. Stop increasing the dose at any point yoursymptoms are controlled. DULoxetine (CYMBALTA) 30 mg capsule Take 1 capsule by mouth once daily. carvedilol (COREG) 12.5 mg tablet Take 1 tablet by mouth twice daily. folic acid/multivit-min/lutein (CENTRUM SILVER ORAL) Take by mouth once daily. traMADol (ULTRAM) 50 mg tablet Take 1 tablet by mouth twice daily. For back pain. (Patient taking differently: Take 50 mg by mouth twice daily as needed. For back pain.) lisinopril (ZESTRIL, PRINIVIL) 10 mg tablet Take 1 tablet by mouth once daily. Cholecalciferol, Vitamin D3, 125 mcg (5,000 unit) cap Take 1 capsule by mouth once daily. acetaminophen (TYLENOL) 500 mg tablet Take 1 tablet by mouth every 6 hours as needed for pain. atorvastatin (LIPITOR) 40 mg tablet Take 1 tablet by mouth once daily. nitroglycerin sublingual (NITROQUICK) 0.4 mg SL tablet Dissolve 1 tablet under the tongue every 5 minutes as needed for Chest Pain. Incontinence Pad, Liner, Disp pads 5 Each once daily. nystatin (MYCOSTATIN) powder Apply 1 application to affected area three times daily. Aspirin 81 mg ORAL Tab Take 1 tablet by mouth once daily. Take with food. No current facility-administered medications for this visit. ALLERGIES: ALLERGIES No Known Allergies VITALS: BP 122/64 Pulse 88 Temp 37.3 C (99.1 F) Resp 16 Wt 68.9 kg (152 lb) SpO2 93% BMI 29.69 kg/m Vitals PULSE OX 04/01/2020 95 04/28/2021 96 12/09/2021 99 01/21/2022 95 04/06/2022 98 05/04/2022 96 05/09/2022 93 PHYSICAL EXAM: GEN: mildly ill appearing. Accompanied by her son who assists with the history. HEENT: PERRL, EOMI, conjunctiva clear Ears: canals clear. TMs without erythema, bulge, or effusion Sinuses: non-tender frontal sinus, non-tender maxillary sinuses Throat: moist mucous membranes, mild erythema, no exudate Neck: supple, no thyromegaly, no lymphadenopathy HEART: regular rate and rhythm, 2/6 systolic murmur heard right upper sternal border. LUNGS: clear to auscultation, no wheezes or crackles, no increased WOB ASSESSMENT/PLAN: 1. URI, acute - ICD9: 465.9, ICD10: J06.9 (primary diagnosis) 2. Exposure to confirmed case of COVID-19 - ICD9: V01.79, ICD10: Z20.822 - probable COVID-19. - Discussed supportive care treatment with home isolation, rest, cold medicine, and analgesia. - Red flags to seek further treatment include chest pain, shortness of breath, and lethargy; in theER if severe. - 2019 CORONAVIRUS - schedule virtual appointment to discuss antiviral treatment if positive. Teofilo Tom MD documented in this encounterOur Lady Of [facility]cy [facility]09-26-2022 Miscellaneous Notes* Telephone Encounter - Cheyenne Degroot LPN - 05/09/2022 10:12 AM EDT Patient son Italia calling father was admitted to [facility] with COVID. His mother is having symptoms now,headache, coughing, fever, body aches, congestion. Advised son that she needs evaluation, to go to ill express care to see provider. Aware PCP is out of office. documented in this encounterOur Lady Of Mercy Hospital09-21-2022 Miscellaneous Notes* [facility] - RT Sandra(R) - 05/04/2022 3:30 PM EDT Radiology Service Progress Note PATIENT NAME: Breanna Phelps DATE OF SERVICE: May 04, 2022 TIME: 4:06 PM PATIENT IDENTITY VERIFICATION COMPLETED USING TWO (2) IDENTIFIERS: Name and Date of confirmedby patient verbally. FALL SCREENING: Has the patient had 2 falls in the last year or 1 fall with injury or currently using an Ambulatory Assistive Device (Walker, Cane, Wheelchair, Crutches, etc.)? No PATIENT GENDER DATA: Female. status: : No status: NO. PATIENT RELEVANT IMPLANT DATA REVIEWED: Not Applicable RADIOLOGY DEPARTMENT: General X-ray: Exam(s) Completed: Spine X-Ray(s): Cervical AP / LAT , Thoracic, and Lumbar AP / LAT / L5-S1 PERIPHERAL IV DATA: Not applicable SIGNED BY: RT Sandra(Rosalinda) May 04, 2022 4:06 PM documented in this encounterOur Lady Of Mercy Hospital09-21-2022 History of Present illness Narrative* Peiro Mittal PA-C - 05/04/2022 1:19 PM EDT Images from the original note were not included. Piero Mittal PA-C [facility] [address] [id number] 05/04/2022 ASSESSMENT AND PLAN: Assessment : Encounter Diagnosis ICD-10-CM 1. Neck pain M54.2 XR CERV GENERAL 2V AP/LAT CONSULT TO PHYSICAL THERAPY 2. Chronic low back pain, unspecified back pain laterality, unspecified whether sciatica present M54.50 XR LUMBAR LIMITED 2V AP/LAT G89.29 CONSULT TO PHYSICAL THERAPY 3. Thoracic spine pain M54.6 XR THORACIC LIMITED 2V AP/LAT CONSULT TO PHYSICAL THERAPY Discussion: Ms. Phelps is a pleasant 81-year-old female here for evaluation of pain in the axial spine region from the base of the skull all the way down to the sacrum. She is accompanied by her who slept quite a bit throughout the visit and she is accompanied by her son who was attentive and assisted with questions and answers. She has had a fracture within the past year thought to be perhaps osteoporotic and has developed considerable amount of thoracic kyphosis over the recent few years. There is prior bone mineral density study in [place]. She has not had any recent evaluation of her spine. The last MRI scan was of her cervical spine about 10 years ago and no x-rays in our system more recently. She denies significant radiating numbness, tingling, or focal weakness in any of the extremities but does describe generalized weakness in the lower extremities. She had a recent heart attack that required her to undergo rehab and she had to She primarily sits in a wheelchair in her visit. She does not get up and move about the room freelyat all. Her alignment is with significant increases in kyphosis as well as cervical lordosis She has axial pain at the base of her skull all the way down to her sacral region little worse on the left than on the right She is hyporeflexic throughout lower extremities. There is appreciable deconditioning throughout lower extremities without focal motor deficit noted She does not describe sensory deficit during today's visit There is low back pain at lumbosacral junction with mild pain on palpation over PSIS bilaterally She has not had any radiographic studies of her spine since April 2012. I have ordered x-rays of each area-2 views of cervical, thoracic, lumbar spine for current baseline She went ahead and had these films done right after her office visit Most notable findings are hyperlordosis of cervical spine in relationship to hyperkyphosis of thoracic spine. In cervical thoracic junction, sagittal balance appears to be almost horizontal. Thoracicsegments appear to show equal amount of disc degeneration anteriorly with osteophyte formation at multiple adjacent levels. Cervical region shows less than expected arthritis for her age but there is some facet arthrosis appreciated. Lumbar findings showed what appears to be likely old L4 fracture. At the time of this dictation, radiologic reports are not available for these films. This is likely to correlate with her descriptionof a low back fracture that she had last year. She has appreciable ongoing symptoms and deconditioning. She admits to pain avoidance behaviors over lengthy course of time. She is willing to try some outpatient therapy and placed greater effort in order to try to regain some strength, but understands that this will be difficult and she will have to work hard to achieve this goal. I would be glad to see her back here in the future if symptoms persist or worsen. I would try to maintain a very conservative course of care with therapies and possible consideration of localized injections. I would have her continue conservative management with Tylenol as the mainstay of her symptom relief, increase exercises and activities, and continue her current tramadol that she gets from her PCP only on an as-needed basis. Plan : DIAGNOSTIC TESTING: -X-ray views will be obtained to better evaluate bony structures. REFERAL FOR SERVICES: -Physical therapy will be instituted. MEDICATIONS: -Current medication regimen is appropriate for this problem. ACTIVITY RECOMMENDATIONS: -The patient is encouraged to avoid bed rest and maintain normal activity. -The patient is encouraged to exercise regularly as tolerated. FOLLOW-UP: -The patient is instructed to return as needed. ADDITIONAL DISCUSSION: -We discussed the difference between hurt vs harm as it relates to chronic pain. This document has been created with the use of voice recognition technology. It may contain inaccuracies: (e.g. misspellings, inaccurate syntax or word sense) that have escaped review. Time spent: 55 minutes today with this patient visit. This includes joea-ey-loex time, review of chart records regarding conservative care history, spine- pertinent imaging, and communication/care coordination with referring provider, problem-specific history-taking and counseling/education regarding treatment options. cc: Kristy Cr [address] [id number] Results of consultation to be transmitted via electronic medical record for those providers who practice within [facility] or with access to [email or web address] via [employer], or via letter. ######################################################################## CHIEF COMPLAINT: Patient is here hips, legs pain - pain goes to the arches of the feet, toes area feeling numb. Level of the pain is at 7/10. Pain started years ago and getting worse. Pain radiates to the upper back and her neck. Had fracture in her lower back, last year. HPI: see Discussion above History of bowel or bladder dysfunction (not IBS or constipation): No History of previous spinal surgery: No History of spinal fracture: Yes Work Status: retired NON-OPERATIVE CARE: Medication(s): She has tried the following for relief of her symptoms: OTC Tylenol Ultram/tramadol Physical Therapy: She has not had physical therapy for her current symptoms. Spinal Injections: She has not gotten prior spinal injections. Other: None Current Outpatient Medications Medication Sig Dispense Refill oxybutynin ER (DITROPAN XL) 15 mg 24 hr Extended Rel Tab Take 1 tablet by mouth once daily. 90 tablet 3 carbidopa-levodopa (SINEMET 25-100) 25-100 mg per tablet Take 0.5 tablets by mouth three times daily for 7 days, THEN 1 tablet three times daily for 7 days, THEN 1.5 tablets three times daily for 7 days, THEN 2 tablets three times daily. Take at mealtimes. Stop increasing the dose at any point yoursymptoms are controlled. 180 tablet 5 DULoxetine (CYMBALTA) 30 mg capsule Take 1 capsule by mouth once daily. 90 capsule 1 carvedilol (COREG) 12.5 mg tablet Take 1 tablet by mouth twice daily. 180 tablet 3 folic acid/multivit-min/lutein (CENTRUM SILVER ORAL) Take by mouth once daily. traMADol (ULTRAM) 50 mg tablet Take 1 tablet by mouth twice daily. For back pain. (Patient taking differently: Take 50 mg by mouth twice daily as needed. For back pain.) lisinopril (ZESTRIL, PRINIVIL) 10 mg tablet Take 1 tablet by mouth once daily. 90 tablet 3 Cholecalciferol, Vitamin D3, 125 mcg (5,000 unit) cap Take 1 capsule by mouth once daily. 90 capsule 3 acetaminophen (TYLENOL) 500 mg tablet Take 1 tablet by mouth every 6 hours as needed for pain. atorvastatin (LIPITOR) 40 mg tablet Take 1 tablet by mouth once daily. 90 tablet 0 nitroglycerin sublingual (NITROQUICK) 0.4 mg SL tablet Dissolve 1 tablet under the tongue every 5 minutes as needed for Chest Pain. 25 Bottle of 25 0 Incontinence Pad, Liner, Disp pads 5 Each once daily. 200 Each 5 nystatin (MYCOSTATIN) powder Apply 1 application to affected area three times daily. 60 g 2 Aspirin 81 mg ORAL Tab Take 1 tablet by mouth once daily. Take with food. No current facility-administered medications for this visit. Allergies: Patient has no known allergies. PAST MEDICAL HISTORY Diagnosis Date Acid reflux Adjustment disorder with depressed mood Adjustment disorder with depressed mood Adjustment disorder with mixed anxiety and depressed mood Anemia Asthma CAD (coronary artery disease) 11/24/2011 Cervical spondylosis with radiculopathy 05/14/2012 CHOLECYSTITIS SEE ALSO GALLBLADDER ACUTE WITH CALCULUS( Without obstruction) 12/11/2008 DERANGEMENT MENISCUS NEC 03/25/2008 Diaphragmatic hernia without mention of obstruction or gangrene Disorder of bone and cartilage, unspecified 06/06/2007 Osteopenia Diverticulosis of colon (without mention of hemorrhage) Dry eyes, bilateral Essential hypertension, benign High cholesterol Hypersomnia 03/17/2014 Dr. Worrell Hypertension Impaired fasting glucose Lumbago Miscarriage NSTEMI (non-ST elevated myocardial infarction) (HCC) 03/25/2021 Obesity, unspecified YAMILETH (obstructive sleep apnea) 04/17/2012 Other and unspecified hyperlipidemia Rheumatic fever Small fiber neuropathy 04/03/2012 Takotsubo cardiomyopathy 03/25/2021 Ulcer disease Unspecified asthma(493.90) 11/24/2005 Unspecified vitamin D deficiency 07/04/2008 Urge incontinence 08/17/2016 Vertigo 12/28/2010 Vitamin B deficiency PAST SURGICAL HISTORY Procedure Laterality Date APPENDECTOMY 1967 ARTHROSCOPY KNEE DIAGNOSTIC W/WO SYNOVIAL BX SPX Right 12/2007 Arthroscopy, knee, right knee. COLONOSCOPY FLX DX W/COLLJ SPEC WHEN PFRMD 03/09/2012 Colonoscopy ESOPHAGOGASTRODUODENOSCOPY TRANSORAL DIAGNOSTIC 03/09/2012 EGD LAPS SURG CHOLECYSTECTOMY W/CHOLANGIOGRAPHY 11/29/2008 LEFT HEART CATH,PERCUTANEOUS 03/25/2021 REM LESIO TRUNK,ARM,LEG 1.1 -2.0CM 01/27/2010 Exc. RLQ skin lesion TOTAL ABDOMINAL HYSTERECT W/WO RMVL TUBE OVARY 1967 TRANSCATH STENT INIT VESSEL,PERCUT 11/24/2011 Transcath stent init vessel percut, LAD Social History Tobacco Use Smoking status: Never Smokeless tobacco: Never Vaping Use Vaping Use: Never used Substance Use Topics Alcohol use: No Drug use: No FAMILY HISTORY Problem Relation Age of Onset other (heart attack) Mother other (TB) Father Diabetes Maternal Grandfather Breast Cancer Sister other (lung cancer) Brother Coronary Artery Disease Brother Genitourinary () Brother hemodialysis Stroke Sister IC aneurysm Alzheimer's Disease Sister Psoriasis Sister REVIEW OF SYSTEMS: Constitutional: (-) Fever/Chills (+) Night Sweats (-) Weight Gain (-) Weight Loss (+) Fatigue not sleeping well Gastrointestinal: (+) Abdominal Pain (-) Diarrhea (+) Constipation (-) Nausea/Vomiting (-) Heart Burn Cardiovascular: (-) Chest Pain (-) Palpitations (+) Lightheadedness (-) Swelling of Ankles (+) Hx Heart Surgery/ 1 Stent Respiratory: (+) Short of Breath (+) Cough (+) Snoring Neurologic: (+) Headache (-) Blurry Vision (-) Fainting Skin: (+) Rashes (+) Itching (-) Other Lesions Psychiatric: (-) Depression (-) Anxiety (-) Suicidal Thoughts Genitourinary: (-) Frequency (+) Urgency Endocrine: (-) Thyroid Disorder (-) Diabetes Hematologic: (-) Prolonged Bleeding (+) Easy Bruising ################################################################################ ################################################# PHYSICAL EXAM: Blood pressure 127/60, pulse 78, height 152.4 cm (5'), weight 69.1 kg (152 lb 4.8 oz), SpO2 96 %. Body mass index is 29.74 kg/m . General: Patient is a(n) poor historian. The patient appears approximately the recorded age and is sitting comfortably in the examining room. The patient is short in stature and is average weight in appearance. This individual has great difficulty arising from a sitting position and does have difficulty acquiring a full, upright position when standing. MENTAL STATUS EXAMINATION: The patient was well groomed and casually attired. The patient had good eye contact and rapport wasaverage to establish. The patient appeared to be alert and oriented in all spheres. The patient's overall medical judgment appeared to be fair.The patient's motivation for treatment was judged based on today's encounter to be fair. SPINE: Lumbar Lordosis: Normal Thoracic Kyphosis: Increased RANGE OF MOTION: Flexion: normal, as expected for age and weight Pain: Yes, axial pain Extension: abnormal, decreased motion below expected for age and weight Pain: Yes, axial pain Lateral Bending: PALPATION TENDERNESS: Moderate tenderness at: cervical spine, thoracic spine, lumbar region, posterior pelvis, and gluteal region Hyperesthesia present: No Regional symptoms present: No Increased pain with axial loading: No Distraction: Normal Pain responses: appropriate NEUROLOGIC EXAM: MOTOR: Requires verbal cues to minimize cog-wheel or give-way resistance: No Hip Flexor R: -4/5 L: -4/5 Hip Adductor R: 4/5 L: 4/5 Hip Abductor R: 4/5 L: -4/5 Knee Extension R: -4/5 L: -4/5 Foot Dorsiflexion R: 4/5 L: 4/5 Foot Plantar Flexion R: 4/5 L: 4/5 Ext Hallicus Longus R: 5/5 L: 5/5 Toe Extensors R: 5/5 L: 5/5 SENSATION to Light Touch: Lumbar: L2-S1 symmetrically normal. REFLEXES: Lower Extremity: Patella tendon: R: 0 L: 2+ Achilles tendon: R: 2+ L: 2+ Clonus: R: 0 beats/Normal L: 0 beats/Normal VASCULAR: Skin appearance: Right: Warm/pink Left: Warm/pink Capillary refill: Right: brisk Left: brisk ADDITIONAL MUSCULOSKELETAL EXAM: HIP/PELVIS EXAM: Tenderness over the PSIS: Right: Yes Left: Yes Greater Trochanteric pain: Right: Yes Left: Yes SPECIAL TESTS: Straight Leg Raise: negative bilaterally Contralateral Straight Leg Raise: negative bilaterally IMAGING STUDIES: See discussion above documented in this encounterOur Lady Of Mercy [facility]09-21-2022 Miscellaneous Notes* Telephone Encounter - Kayy Barrera RN - 05/04/2022 11:06 AM EDT Option to schedule at [facility] shared with patient's son via [employer]. RYAN Garcia, RN May 04, 2022 11:07 AM * Telephone Encounter - Kayy Barrera RN - 05/04/2022 9:54 AM EDT Called [facility] production support developer at [phone] and spoke with Goldie to review process. They can place a cushion underneath her knees and get her comfortable and do the scan. As long as there is no concern with kyphosis, it should be done in less than 5 minutes and can be done at the [facility] site. Update shared with MD GHANSHYAM. RYAN Garcia, RN May 04, 2022 10:03 AM documented in this encounterOur Lady Of Mercy Hospital09-19-2022 Miscellaneous Notes* Telephone Encounter - Kayy Barrera RN - 05/02/2022 9:03 AM EDT Attempted to call home phone/ son with update. No response. No ability to leave message as voicemail was not set up. My Chart message sent with detailed update. Mobile phone for is incorrect and reached someone named Asim. He stated that he hs had the same umber for two years and continues to get calls for Masoud. RN update chart and removed incorrect number. RYAN Garcia, RN May 02, 2022 9:28 AM * Telephone Encounter - Kristy Cr MD - 04/29/2022 5:14 PM EDT - go through the hospital probably means MRI with anesthesia which at [facility] is only done at main campus to my knowledge. Risk of anesthesia is not worth the extra information provided by MRI. Ordered head CT to be done instead. We had discussed this possibility at visit. Would reduce Sinemet to 1/2 tab 3 times a day. Make sure getting at least 40 ounces water per day unless told to fluid restrict by other doctor. If she can get better about fluids then can try 1 tab 3 times a day again. Low BP is common Sinemet side effect. * Telephone Encounter - Kayy Barrera RN - 04/29/2022 3:07 PM EDT Returned call to patients son Italia. No recent changes in medication. This week she was to titratedto 1.5 tabs but has stayed at 1 tab because of dizziness. No recent acute illnesses, or exposure to Covid. Recent days have had headaches. Hydration status is not exact. RN suggested increaded fluid intake to help with dizziness and headaches. Patient has not had any falls but is feeling more unstable. She uses a walker and a cane for short distances. When trying to lay flat, she would have a a back spasm that prevented it. Mentioned that they mightgive her something over the counter to help. RN will confer with KA and see what she would prefer/ advise. He will continue 1 tab TID of the C/L until otherwise advised. RYAN Garcia, RN April 29, 2022 3:13 PM * Telephone Encounter - Alice Vasquez - 04/29/2022 3:02 PM EDT Italia (son) calling to say that patient could not lay flat for MRI so they were unable to complete this. He says it was recommended that patient go through the hospital for this. He is unsure what this means but wants to know what Dr. Cr recommends? He also reports that she is having dizziness. She feels like her balance is off and that she may fall. She is taking 1 tablet of C/L three times a day because he's unsure if the medication is contributing to this. She did not experience this on / tab TID> She has also had headaches for the last couple of days. He wants to know if there's anything they should do for this? documented in this encounterOur Lady Of Mercy Hospital09-14-2022 History of Present illness Narrative* RT Sarah(R) - 04/27/2022 1:00 PM EDT RADIOLOGY SERVICE PROGRESS NOTE DATE OF SERVICE: April 27, 2022 TIME OF SERVICE: 1:00 PM EVENT: EXAM/PROCEDURE NOT COMPLETED - Patient requires additional/alternate prep. ADDITIONAL EVENT DETAILS: PT UNABLE TO LAY FLAT DUE TO PAIN IN BACK SIGNATURE: RT Sarah(Rosalinda) PATIENT NAME: Breanna Phelps DATE: April 27, 2022 TIME: 1:48 PM PAGER/CONTACT #: documented in this encounterOur Lady Of Mercy Hospital09-13-2022 Miscellaneous Notes* Telephone Encounter - Monie Ugalde LPN - 04/26/2022 11:07 AM EDT Patient has been identified by name and date of : Yes Patient phones for refill(s): Requested Prescriptions Pending Prescriptions Disp Refills oxybutynin ER (DITROPAN XL) 15 mg 24 hr Extended Rel Tab 90 tablet 3 Sig: Take 1 tablet by mouth once daily. Date of last office visit in primary care: 03/03/2022 Last 2 Encounter Wt Readings: Date: Wt: 04/06/2022 70.4 kg (155 lb 3.2 oz) 03/03/2022 70.8 kg (156 lb) Please advise. Thank you. Monie Ugalde LPN * Telephone Encounter - Cleopatra Desouza Pss - 04/26/2022 10:07 AM EDT Patient has been identified by name and date of : Yes Requested Prescriptions Pending Prescriptions Disp Refills oxybutynin ER (DITROPAN XL) 15 mg 24 hr Extended Rel Tab 90 tablet 3 Sig: Take 1 tablet by mouth once daily. RX INSTRUCTIONS: Patient aware RX will be sent to pharmacy. No need to notify patient. Cleopatra Conner documented in this encounterOur Lady Of Mercy Hospital08-24-2022 Instructions* Patient Instructions* Kristy Cr MD - 04/06/2022 9:46 AM EDT It was a pleasure to see you today. We addressed the following diagnoses: Tremor Unsteady gait Chronic low back pain, unspecified back pain laterality, unspecified whether sciatica present (primary encounter diagnosis) Parkinsonism, unspecified parkinsonism type ([facility]) My recommendations are as follows: 04/06/2022 Visit: Try Sinemet and see if you are moving better. Follow directions on the bottle. If no better after 2weeks then can taper off using the same taper schedule but backwards - Get the brain MRI. If you cannot complete it we will do a cat scan instead - See pain management or spine - No follow-ups on file. If there are any concerns before your next visit, please call or you can send a message through [employer]. You can also now schedule and select appointments through [employer]. Kristy Cr MD documented in this encounterOur Lady Of Mercy Hospital08-24-2022 History of Present illness Narrative* Kristy Cr MD - 04/06/2022 9:08 AM EDT [facility] - FOLLOW UP EVALUATION Juan J Hi MD [address] [facility] [place] [address] I had the pleasure of seeing Ms. Phelps for follow up today. She is a 81 year old right-handed female with a history of tremor and gait instability since 2020. She is seen with a son and her . Subjective Previous Plan-12/09/2021 Visit: See pain management - Cymbalta as prescribed by PCP - Interval History: Doing well. Still trouble walking. Upper back gets tired more than pain. Little more unsteadiness. Stepping into car doesn't work with the left leg. Drags that leg a little. Hard to lay flat in bed due to spine pain. Hasn't seen pain management about this. Upper back hasn't been imaged. Had lumbar MRI last year. Bends over more as the day progresses. ADLs are ok. Has shower sprayer. Trouble putting on some clothes. Right side doesn't feel as strong as the left In addition, the following areas that may be affected by abnormal involuntary movements were evaluated: Tremors/Gait/Balance Shaking or tremors: Yes: with reaching, bilateral. Doesn't affect eating or drinking. Sometimes internal tremor in arms. Manageable. Walking and balance problems: Yes: Number of falls in the Last Month: No but has come close. Autonomic/Pain Lightheadeness on standing: Yes: occasionally. Not enough water Urinary problems: Yes: frequency Speech/Swallowing Drooling: Yes: day or night Chewing and swallowing problems: Yes: sometimes trouble with water. Cannot tilt head back. Soft voice. Sleep/Fatigue Sleep problems: Yes: wakes up every 3-4 hours. Bathroom and other things wake her up. Usually able to go back to sleep Daytime sleepiness: Yes: naps REM sleep behavior disorder: no Restless Legs Syndrome: yes sometimes Finally, the following table shows the patient's overall global physical and mental health using the PROMIS scale: *PROMIS-10 scoring scale: mean = 50, over 50 is above average, under 50 is below average Movement Disorders Medications Schedule - as of the start of the visit: Medications ALLERGIES No Known Allergies Current Outpatient Medications Medication Sig DULoxetine (CYMBALTA) 30 mg capsule Take 1 capsule by mouth once daily. carvedilol (COREG) 12.5 mg tablet Take 1 tablet by mouth twice daily. folic acid/multivit-min/lutein (CENTRUM SILVER ORAL) Take by mouth once daily. traMADol (ULTRAM) 50 mg tablet Take 1 tablet by mouth twice daily. For back pain. (Patient taking differently: Take 50 mg by mouth twice daily as needed. For back pain.) lisinopril (ZESTRIL, PRINIVIL) 10 mg tablet Take 1 tablet by mouth once daily. oxybutynin ER (DITROPAN XL) 15 mg 24 hr Extended Rel Tab Take 1 tablet by mouth once daily. Cholecalciferol, Vitamin D3, 125 mcg (5,000 unit) cap Take 1 capsule by mouth once daily. acetaminophen (TYLENOL) 500 mg tablet Take 1 tablet by mouth every 6 hours as needed for pain. atorvastatin (LIPITOR) 40 mg tablet Take 1 tablet by mouth once daily. nitroglycerin sublingual (NITROQUICK) 0.4 mg SL tablet Dissolve 1 tablet under the tongue every 5 minutes as needed for Chest Pain. Incontinence Pad, Liner, Disp pads 5 Each once daily. nystatin (MYCOSTATIN) powder Apply 1 application to affected area three times daily. Aspirin 81 mg ORAL Tab Take 1 tablet by mouth once daily. Take with food. No current facility-administered medications for this visit. Objective Vital Signs: BP 120/58 (BP Site: Left Arm, BP Position: Sitting, BP Cuff Size: Regular Adult) Pulse 73 Ht 152.4 cm (5') Wt 70.4 kg (155 lb 3.2 oz) SpO2 98% BMI 30.31 kg/m General Physical Examination: General: Awake, alert, interactive, no acute distress, good nutritional status, normal development,well-kept General Neurological Examination: Neurological Exam Mental Status Awake and alert. Speech is normal. Language is fluent with no aphasia. Fund of knowledge is appropriate for level of education. Movement Disorders Scales Performed: MDS-UPDRS Motor subscale condition of exam Medication Off/On/Naiive Drug Naiive Time of UPDRS Time of Last Medication Last Medication Taken DBS Right DBS Left MDS-UPDRS Motor subscale scores Speech 2-Mild. Loss of modulation, diction, or volume, with a few words unclear, but the overall sentences easy to follow. Facial Expression 1-Slight. Minimal masked facies manifested only by decreased frequency of blinking. Rigidity Neck 1-Slight. Rigidity only detected with activation maneuver. Rigidity Right Upper Extremity 1-Slight. Rigidity only detected with activation maneuver. Rigidity Left Upper Extremity 0-Normal. No rigidity. Rigidity Right Lower Extremity 0-Normal. No rigidity. Rigidity Left Lower Extremity 0-Normal. No rigidity. Finger Taps Right 3-Moderate. a) more than 5 interruptions during tapping or at least one longer arrest (freeze) in ongoing movement, b) moderate slowing, c) the amplitude decrements starting after the 1st tap. Finger Taps Left 3-Moderate. a) more than 5 interruptions during tapping or at least one longer arrest (freeze) in ongoing movement, b) moderate slowing, c) the amplitude decrements starting after the 1st tap. Hand Movements Right 3-Moderate. a) more than 5 interruptions during the movement or at least one longer arrest (freeze) in ongoing movement, b) moderate slowing, c) the amplitude decrements startingafter the 1st [id number] sequence. Hand Movements Left 2-Mild. a) 3 to 5 interruptions during the movements, b) mild slowing, c) the amplitude decrements midway in the task. Arm Movements Right 0-Normal. No problems. Arm Movements Left 1-Slight. a) the regular rhythm is broken with one or two interruptions or hesitations of the movement, b) slight slowing, c) the amplitude decrements near the end of the sequence. Toe Taps Right 0-Normal. No problem. Toe Taps Left 2-Mild. a) 3 to 5 interruptions during the tapping movements, b) mild slowing, c) theamplitude decrements midway in the task. Leg Agility Right 1-Slight. a) the regular rhythm is broken with one or two interruptions or hesitations of the movement, b) slight slowing, c) the amplitude decrements near the end of the task. Leg Agility Left 1-Slight. a) the regular rhythm is broken with one or two interruptions or hesitations of the movement, b) slight slowing, c) the amplitude decrements near the end of the task. Arise From Chair Gait Gait Freezing Posture Stability Posture Body Bradykinesia Postural Tremor Hand Right 0-Normal. No tremor. Postural Tremor Hand Left 0-Normal. No tremor. Kinetic Tremor Right 0-Normal. No tremor. Kinetic Tremor Left 0-Normal. No tremor. Rest Tremor Amplitude Right Upper Extremity 0-Normal. No tremor. Rest Tremor Amplitude Left Upper Extremity 0-Normal. No tremor. Rest Tremor Amplitude Right Lower Extremity 0-Normal. No tremor. Rest Tremor Amplitude Right Lower Extremity 0-Normal. No tremor. Rest Tremor Amplitude Lip/Jaw 0-Normal. No tremor. Rest Tremor Constancy 0-Normal. No tremor. MDS-UPDRS Motor subscale totals Left Total 9 Right Total 8 Midline Total Tremor Total / 10 0 PIGD Total / 3 Overall Total % Change Compared to Last Filed Total Assessment and Plan: Assessment Ms. Phelps is a right-handed 81 year old female with tremor and unsteady gait with onset in the setting of Takotsubo cardiomyopathy. Main complaint is back pain. She does have elements of parkinsonism on exam. Suspect her symptoms are multifactorial. Differential includes neurodegenerative parkinsonism, depression, lumbar degenerative change with scoliosis. Continues to be most bothered by radicular back pain. Will refer to spine or pain management. Sinemet trial. Brain MRI to rule out central causes of her parkinsonism. The following are the current problems noted and addressed during this visit: Tremor Unsteady gait Chronic low back pain, unspecified back pain laterality, unspecified whether sciatica present (primary encounter diagnosis) Parkinsonism, unspecified parkinsonism type ([facility]) Plan 04/06/2022 Visit: Try Sinemet and see if you are moving better. Follow directions on the bottle. If no better after 2weeks then can taper off using the same taper schedule but backwards - Get the brain MRI. If you cannot complete it we will do a cat scan instead - See pain management or spine - Medical Decision Making: Problems: Moderate: 2+ stable chronic illnesses Data: Unique test(s) ordered: 1 Risk: Moderate: Drug management Medical Decision Making Level: 4 - Moderate Thank you for allowing me to be part of the clinical care of this patient! I look forward to continued participation in the patient s care with you. Please do not hesitate to call with any questions. Sincerely, Kristy Cr MD documented in this encounterOur Lady Of Mercy Hospital07-21-2022 History of Present illness Narrative* Juan J Hi MD - 03/03/2022 4:42 PM EDT This note was created using [employer]. Subjective Breanna Phelps is a 81 year old female here with spouse and son. She was taking duloxetine and her chronic pains have practically resolved. Her mood was better. She only had fatigue in her back with prolonged standing. Tremors were unchanged, and she was scheduled to follow up with neurology. There was a phone message about the dose of carvedilol changed. Review of Systems Constitutional: Negative. Musculoskeletal: Positive for gait problem. Negative for arthralgias and back pain. Neurological: Positive for tremors. Psychiatric/Behavioral: Negative for dysphoric mood. The patient is not nervous/anxious. ACTIVE PROBLEM LIST Lumbago Other Hyperlipidemia Essential Hypertension, Benign Asthma Osteoporosis Osteoarthrosis Involving Lower Leg Vitamin D Deficiency Cad (Coronary Artery Disease) Gastroesophageal Reflux Disease Without Esophagitis Small Fiber Neuropathy Urge Incontinence Dizziness and Giddiness Obesity, Class II, Bmi 35-39.9 Adjustment Disorder With Mixed Anxiety and Depressed Mood Takotsubo Cardiomyopathy Tremor Unsteady Gait Current Outpatient Medications Medication Sig carvedilol (COREG) 12.5 mg tablet Take 1 tablet by mouth twice daily. folic acid/multivit-min/lutein (CENTRUM SILVER ORAL) Take by mouth once daily. DULoxetine (CYMBALTA) 30 mg capsule Take 1 capsule by mouth once daily. traMADol (ULTRAM) 50 mg tablet Take 1 tablet by mouth twice daily. For back pain. (Patient taking differently: Take 50 mg by mouth twice daily as needed. For back pain.) lisinopril (ZESTRIL, PRINIVIL) 10 mg tablet Take 1 tablet by mouth once daily. oxybutynin ER (DITROPAN XL) 15 mg 24 hr Extended Rel Tab Take 1 tablet by mouth once daily. Cholecalciferol, Vitamin D3, 125 mcg (5,000 unit) cap Take 1 capsule by mouth once daily. acetaminophen (TYLENOL) 500 mg tablet Take 1 tablet by mouth every 6 hours as needed for pain. atorvastatin (LIPITOR) 40 mg tablet Take 1 tablet by mouth once daily. nitroglycerin sublingual (NITROQUICK) 0.4 mg SL tablet Dissolve 1 tablet under the tongue every 5 minutes as needed for Chest Pain. Incontinence Pad, Liner, Disp pads 5 Each once daily. nystatin (MYCOSTATIN) powder Apply 1 application to affected area three times daily. Aspirin 81 mg ORAL Tab Take 1 tablet by mouth once daily. Take with food. No current facility-administered medications for this visit. Objective BP 129/75 (BP Site: Left Arm, BP Position: Sitting, BP Cuff Size: Large Adult) Pulse 81 Temp 36.4 C (97.6 F) (Temporal Artery) Resp 18 Wt 70.8 kg (156 lb) BMI 26.78 kg/m Physical Exam Constitutional: General: She is not in acute distress. Pulmonary: Effort: Pulmonary effort is normal. Neurological: Mental Status: She is alert. Motor: Tremor present. Gait: Gait abnormal. Comments: Ambulatory with walker. Psychiatric: Attention and Perception: Attention normal. Mood and Affect: Affect is flat. Speech: Speech normal. Behavior: Behavior normal. Thought Content: Thought content normal. Assessment and Plan ASSESSMENT/PLAN: 1. Takotsubo cardiomyopathy - ICD9: 429.83, ICD10: I51.81 (primary diagnosis) Medications reviewed. Cardiology consult notes reviewed. Continue as listed for now. 2. Adjustment disorder with mixed anxiety and depressed mood - ICD9: 309.28, ICD10: F43.23 We agreed to continue at this dose. - DULOXETINE 30 MG CAPSULE,DELAYED RELEASE 3. Chronic bilateral low back pain with bilateral sciatica - ICD9: 724.2, 724.3, 338.29, ICD10: M54.42, M54.41, G89.29 - Back strengthening exercises. - DULOXETINE 30 MG CAPSULE,DELAYED RELEASE 4. Tremor - ICD9: 781.0, ICD10: R25.1 See neurology. Juan J Hi MD documented in this encounterOur Lady Of Mercy Hospital07-18-2022 Miscellaneous Notes* Telephone Encounter - Barby Ibrahim RN - 02/28/2022 5:11 PM EDT Spoke with patient's son. Given message from provider's office. Patient's son verbalizes understanding. Barby Ibrahim RN * Telephone Encounter - Juan J Hi MD - 02/28/2022 4:47 PM EDT Carvedilol has been 12.5 mg BID, NOT 25 mg BID. Patient's request for medication is as follows Signed Prescriptions Disp Refills carvedilol (COREG) 12.5 mg tablet 180 tablet 3 Sig: Take 1 tablet by mouth twice daily. BA: No Authorizing Provider: JUAN J HI Order entered - please phone pharmacy and notify patient. Juan J Hi MD * Telephone Encounter - Barby Ibrahim RN - 02/28/2022 3:49 PM EDT Patient's son calling to ask if patient is to continue taking Carvedilol 25 mg twice daily? She hasbeen taking this since 12/16/21. She does not know what her blood pressure readings are. She has not been checking it recently. If she is to continue on this dose, she will need a new script to [facility]. Barby Ibrahim RN documented in this encounterOur Lady Of Mercy Hospital07-11-2022 Miscellaneous Notes* Telephone Encounter - Geovanna Carter MD - 02/21/2022 10:44 AM EDT Told patient pathology results from biopsy done on 02/17/2022 at [facility]. Pathology - A. Breast, right, 12:00 petite clip, biopsy: - Benign breast parenchyma with fibroadenomatoid changes. - Microcalcifications identified within fibroadenomatoid changes. Patient can follow up with mammograms in one year, can follow up with her PCP. Patient acknowledges above. documented in this encounterOur Lady Of Mercy Hospital06-10-2022 History of Present illness Narrative* Geovanna Carter MD - 01/21/2022 3:30 PM EDT HISTORY AND PHYSICAL [facility] 1940 REFERRING PHYSICIAN: Juan J Hi MD CHIEF COMPLAINT: Consult (mammogram Right breast calcification) HPI: The patient is a 81 year old female presents with abnormal right breast mammographic calcifications. She denies palpable breast masses. She denies nipple discharge. She denies previous breast biopsies. She denies breast pain. Her older sister had breast cancer (diagnosed in her 80s), no ovarian cancer in family known. Mammograms 01/19/2022 There are multiple clustered heterogeneous calcifications in the right breast upper outer aspect middle depth. These are seen in additional views. No other significant masses or calcifications are seen in the breast. IMPRESSION: SUSPICIOUS OF MALIGNANCY The multiple clustered heterogeneous calcifications in the right breast are at an intermediate suspicion for malignancy. A stereotactic biopsy is recommended. She was hospitalized last year for OR; a cardiac catheterization was attempted but could not be done and patient was treated conservatively. She is also s/p OR in 2011. PAST MEDICAL HISTORY Diagnosis Date Acid reflux Adjustment disorder with depressed mood Adjustment disorder with depressed mood Adjustment disorder with mixed anxiety and depressed mood Anemia Asthma CAD (coronary artery disease) 11/24/2011 Cervical spondylosis with radiculopathy 05/14/2012 CHOLECYSTITIS SEE ALSO GALLBLADDER ACUTE WITH CALCULUS( Without obstruction) 12/11/2008 DERANGEMENT MENISCUS NEC 03/25/2008 Diaphragmatic hernia without mention of obstruction or gangrene Disorder of bone and cartilage, unspecified 06/06/2007 Osteopenia Diverticulosis of colon (without mention of hemorrhage) Dry eyes, bilateral Essential hypertension, benign High cholesterol Hypersomnia 03/17/2014 Dr. Worrell Hypertension Impaired fasting glucose Lumbago Miscarriage NSTEMI (non-ST elevated myocardial infarction) (HCC) 03/25/2021 Obesity, unspecified YAMILETH (obstructive sleep apnea) 04/17/2012 Other and unspecified hyperlipidemia Rheumatic fever Small fiber neuropathy 04/03/2012 Takotsubo cardiomyopathy 03/25/2021 Ulcer disease Unspecified asthma(493.90) 11/24/2005 Unspecified vitamin D deficiency 07/04/2008 Urge incontinence 08/17/2016 Vertigo 12/28/2010 Vitamin B deficiency PAST SURGICAL HISTORY Procedure Laterality Date APPENDECTOMY 1967 ARTHROSCOPY KNEE DIAGNOSTIC W/WO SYNOVIAL BX SPX Right 12/2007 Arthroscopy, knee, right knee. COLONOSCOPY FLX DX W/COLLJ SPEC WHEN PFRMD 03/09/2012 Colonoscopy ESOPHAGOGASTRODUODENOSCOPY TRANSORAL DIAGNOSTIC 03/09/2012 EGD LAPS SURG CHOLECYSTECTOMY W/CHOLANGIOGRAPHY 11/29/2008 LEFT HEART CATH,PERCUTANEOUS 03/25/2021 REM LESIO TRUNK,ARM,LEG 1.1 -2.0CM 01/27/2010 Exc. RLQ skin lesion TOTAL ABDOMINAL HYSTERECT W/WO RMVL TUBE OVARY 1967 TRANSCATH STENT INIT VESSEL,PERCUT 11/24/2011 Transcath stent init vessel percut, LAD Current Outpatient Medications Medication Sig folic acid/multivit-min/lutein (CENTRUM SILVER ORAL) Take by mouth once daily. DULoxetine (CYMBALTA) 30 mg capsule Take 1 capsule by mouth once daily. traMADol (ULTRAM) 50 mg tablet Take 1 tablet by mouth twice daily. For back pain. (Patient taking differently: Take 50 mg by mouth twice daily as needed. For back pain.) lisinopril (ZESTRIL, PRINIVIL) 10 mg tablet Take 1 tablet by mouth once daily. carvedilol (COREG) 12.5 mg tablet Take 1 tablet by mouth twice daily. oxybutynin ER (DITROPAN XL) 15 mg 24 hr Extended Rel Tab Take 1 tablet by mouth once daily. Cholecalciferol, Vitamin D3, 125 mcg (5,000 unit) cap Take 1 capsule by mouth once daily. acetaminophen (TYLENOL) 500 mg tablet Take 1 tablet by mouth every 6 hours as needed for pain. atorvastatin (LIPITOR) 40 mg tablet Take 1 tablet by mouth once daily. nitroglycerin sublingual (NITROQUICK) 0.4 mg SL tablet Dissolve 1 tablet under the tongue every 5 minutes as needed for Chest Pain. Incontinence Pad, Liner, Disp pads 5 Each once daily. nystatin (MYCOSTATIN) powder Apply 1 application to affected area three times daily. Aspirin 81 mg ORAL Tab Take 1 tablet by mouth once daily. Take with food. DULoxetine (CYMBALTA) 20 mg capsule Take 1 capsule by mouth once daily. (Patient not taking: Reported on 01/21/2022 ) ALLERGIES: Patient has no known allergies. PERSONAL HISTORY: Social History Tobacco Use Smoking status: Never Smoker Smokeless tobacco: Never Used Vaping Use Vaping Use: Never used Substance Use Topics Alcohol use: No Drug use: No FAMILY HISTORY Problem Relation Age of Onset other (heart attack) Mother other (TB) Father Diabetes Maternal Grandfather Breast Cancer Sister other (lung cancer) Brother Coronary Artery Disease Brother Genitourinary () Brother hemodialysis Stroke Sister IC aneurysm Alzheimer's Disease Sister Psoriasis Sister The review of systems data was entered by the nurse and reviewed by me Nursing Notes: Jayleen Brito LPN 01/21/2022 2:10 PM Signed REVIEW OF SYSTEMS: General: The patient denies fatigue, denies weight loss, denies weight gain, denies feeling hot, and denies feelings of cold. Eyes: The patient denies glaucoma, denies eye injury/surgery, wears glasses or contacts. Ear/Nose/Throat: The patient denies allergies, denies hayfever, denies ear infections, and denies bloody noses. Cardiovascular: The patient notes chest pain, notes heart disease, notes high blood pressure,notes cardiac stent, notes prior heart attack, denies irregular heart beat, denies high cholesterol, denies poor circulation, denies heart failure, other cardiac issues, denies claudication, denies cold feet, denies peripheral arterial stent. Respiratory: The patient denies tuberculosis, denies pneumonia, notes frequent cough, denies pulmonary embolism, denies shortness of breath, and denies coughing up blood. Gastrointestinal: The patient notes difficulty swallowing, denies acid reflux, denies ulcers, denies vomiting, denies jaundice/hepatitis, denies gallbladder problems, denies black or tarry stools, denies hemorrhoids, denies bleeding from rectum, denies diverticulitis, denies constipation, denies diarrhea, denies loss of stool control, and denies hernias. Kidney/Bladder: The patient denies kidney stones, notes urine infections, and denies bloody urine. Skin: The patient denies a history of skin cancer, denies bleeding/changing moles, and denies a history of skin rash. Neurologic: The patient denies a history of epilepsy/convulsions, denies headaches, denies head/spinal injuries, and denies stroke/TIA. Psychiatric: The patient denies psychiatric medications, denies depression, and denies voices, denies substance abuse. Endocrine: The patient denies thyroid disorders, denies diabetes, and denies hormonal problems. Hematologic: The patient notes a history of bruising, denies bleeding, and denies anemia, denies blood clots. Infections: The patient denies a history of measles and mumps, notes rheumatic fever, and denies sexually transmitted diseases. Musculoskeletal: The patient notes back pain/injury, notes back problems, denies sciatica, notes knee/foot trouble, notes arthritis, or denies gout. Gynecological: Menarche onset at age 13, , first at age 20, BCP use initially at age 21 for 10y, breast feeding 2 y, hysterectomy in late 30s, denies HRT use When was patient's last Mammogram screening? 2021 Last Colonoscopy: 2011 Jayleen Brito LPN PHYSICAL EXAMINATION: General: The patient is 81 year old female, well nourished, well hydrated in no acute distress. Thepatient is oriented to time, place, and person. VITALS: Blood pressure 128/62, pulse 85, temperature 37.1 C (98.8 F), height 162.6 cm (5' 4), weight 74.4 kg (164 lb), SpO2 95 %. Body mass index is 28.15 kg/m . Head Normocephalic. EOM intact with sclera clear and no icterus noted. Wearing glasses. Neck - supple with no jugular venous distention noted. Trachea is midline. No thyroid enlargement or thyroid nodules detected. No masses noted. Chest/breast no asymmetry of breasts noted, bilateral ptotic breasts, no suspicious skin lesions noted, no nipple discharge and both nipples everted, no breast masses noted Lungs clear to auscultation. Normal breath sounds. No rales/rhonchi/wheezing noted. No labored breathing noted, such as retractions. No cough heard. Heart normal S1 and S2 auscultated. No rubs/clicks/murmurs noted. Regular rate. Abdomen soft and benign. Difficult to determine if any masses or organomegaly due to body habitus. Back with kyphosis, cannot lie supine Extremities no calf tenderness noted. No pitting edema noted. Skin normal skin integrity. Lymph no cervical adenopathy detected, no supraclavicular adenopathy detected, no axillary adenopathy detected Neurological gait normal, no focal deficits noted, ambulates with aid of a walker Psych calm and appropriate RADIOLOGIC STUDIES: As Noted, patient had complained of chest pain and prompted mammography order Assessment IMPRESSION: abnormal calcifications seen on right breast mammograms PLAN: I have discussed the above with the patient and her son, Italia who is present with her. I have reviewed the mammograms, as per radiology, I have recommended right stereotactic breast biopsy. I have explained procedure to her. I have counseled the patient as to the risks of the procedure, including but not limited to: infection, bleeding, injury to any blood vessels/nerves, scar tissue, wound infections, complications of anesthesia, etc. the patient understands. The patient states that she cannot lie prone and the biopsy table at [facility] is a Leiva table, will therefore refer patient to [facility] for stereotactic biopsy. Any appointments, the patient has requested that we contact her son, Italia Phelps toset up The patient acknowledges the above. I have answered all questions to the patient s satisfaction and the patient has no further questions. I have confirmed and edited as necessary, the PFSH and ROS obtained by others. Consultation requested by Dr.Victor Hi for an opinion regarding patient's abnormal mammograms. My final recommendations will be communicated back to the requesting physician by way of shared Medical record or letter to requesting physician via US mail. . 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. I will call her with results of pathology. Medical Decision Making: Problems: Moderate: New problem with uncertain prognosis Risk: Low: Low risk from testing/treatment Medical Decision Making Level: 3 - Low Geovanna Carter MD documented in this encounterOur [facility]06-10-[facility]22 Nurse Note* Jayleen Brito, SUPERVISOR COVERING AND LINING - 01/21/2022 2:08 PM EDT REVIEW OF SYSTEMS: General: The patient denies fatigue, denies weight loss, denies weight gain, denies feeling hot, and denies feelings of cold. Eyes: The patient denies glaucoma, denies eye injury/surgery, wears glasses or contacts. Ear/Nose/Throat: The patient denies allergies, denies hayfever, denies ear infections, and denies bloody noses. Cardiovascular: The patient notes chest pain, notes heart disease, notes high blood pressure,notes cardiac stent, notes prior heart attack, denies irregular heart beat, denies high cholesterol, denies poor circulation, denies heart failure, other cardiac issues, denies claudication, denies cold feet, denies peripheral arterial stent. Respiratory: The patient denies tuberculosis, denies pneumonia, notes frequent cough, denies pulmonary embolism, denies shortness of breath, and denies coughing up blood. Gastrointestinal: The patient notes difficulty swallowing, denies acid reflux, denies ulcers, denies vomiting, denies jaundice/hepatitis, denies gallbladder problems, denies black or tarry stools, denies hemorrhoids, denies bleeding from rectum, denies diverticulitis, denies constipation, denies diarrhea, denies loss of stool control, and denies hernias. Kidney/Bladder: The patient denies kidney stones, notes urine infections, and denies bloody urine. Skin: The patient denies a history of skin cancer, denies bleeding/changing moles, and denies a history of skin rash. Neurologic: The patient denies a history of epilepsy/convulsions, denies headaches, denies head/spinal injuries, and denies stroke/TIA. Psychiatric: The patient denies psychiatric medications, denies depression, and denies voices, denies substance abuse. Endocrine: The patient denies thyroid disorders, denies diabetes, and denies hormonal problems. Hematologic: The patient notes a history of bruising, denies bleeding, and denies anemia, denies blood clots. Infections: The patient denies a history of measles and mumps, notes rheumatic fever, and denies sexually transmitted diseases. Musculoskeletal: The patient notes back pain/injury, notes back problems, denies sciatica, notes knee/foot trouble, notes arthritis, or denies gout. When was patient's last Mammogram screening? 2021 Last Colonoscopy: 2011 Jayleen Brito LPN documented in this encounterOur [facility]06-08-2022 History of Present illness Narrative* Jennifer Parks RT(R) - 01/19/2022 2:00 PM EDT Radiology Service Progress Note PATIENT NAME: Breanna Phelps DATE OF SERVICE: January 19, 2022 TIME: 1:52 PM PATIENT IDENTITY VERIFICATION COMPLETED USING TWO (2) IDENTIFIERS: Name and Date of confirmedby patient verbally. FALL SCREENING: Has the patient had 2 falls in the last year or 1 fall with injury or currently using an Ambulatory Assistive Device (Walker, Cane, Wheelchair, Crutches, etc.)? No PATIENT GENDER DATA: Female. status: : No status: NO. PATIENT RELEVANT IMPLANT DATA REVIEWED: Not Applicable RADIOLOGY DEPARTMENT: Mammography PERIPHERAL IV DATA: Not applicable SIGNED BY: RT Fabiola(R) January 19, 2022 1:52 PM documented in this encounterOur Lady Of Mercy Hospital05-16-2022 Miscellaneous Notes* Telephone Encounter - Monie Ugalde LPN - 12/27/2021 1:00 PM EDT Patient notified, verbalized understanding. Monie Ugalde LPN * Telephone Encounter - Juan J Hi MD - 12/27/2021 12:16 PM EDT See her thread marker if symptoms continue, recur. Go to ER for worsening symptoms. * Telephone Encounter - Nataly Campa LPN - 12/27/2021 11:28 AM EDT Called pt and reviewed. She reports last evening about 8 or 9 pm. She felt fluttering in chest and blood pressure was then 192/93 pulse was 80. She reports she rested in her chair and felt better. She did not check her blood pressure after that. * Telephone Encounter - Juan J Hi MD - 12/26/2021 3:22 PM EDT Okay. Continue current medications * Telephone Encounter - Rissa Lee RN - 12/23/2021 4:42 PM EDT Patient calls to update provider on blood pressure readings: 12/18 540 pm 141/64 HR 65 12/20 540 pm 160/72 HR 70 12/21 540 pm 120/62 HR 75 after meds 12/22 540 pm 142/67 HR 69 5/12 440 pm 124/66 HR 75 after meds 12/23 445 pm 111/63 HR 74 Patient reports only symptom is being tired. Denies SOB and dizziness. Reports an occasional slightpain to bilateral breasts. Reports it is generally the right side and lasts a few seconds. Mammogram diagnostic scheduled for 01/19. Rissa Lee RN documented in this encounterOur Lady Of Mercy [facility]05-04-2022 Miscellaneous Notes* Telephone Encounter - Cheyenne Degroot LPN - 12/15/2021 3:34 PM EDT Patient returned call and aware orders are in place, assisted with transfer to hogshead dumper at [facility] to make appt. * Telephone Encounter - Sahil Salazar Ma - 12/15/2021 3:23 PM EDT Left message to call office. 12/15/2021 3:23 PM Please advise patient to call [phone] * Telephone Encounter - Patsy Anaya RN - 12/15/2021 1:35 PM EDT Patient calls and states that she had mammogram done on 11/30/2021. Mammogram showed that additional views were needed on right breast. Patient asking if provider can put in order for additional views? Please review and advise, Patsy Anaya RN documented in this encounterOur Lady Of Mercy Hospital04-20-2022 Miscellaneous Notes* Letter - Mammography Coordinator - 12/01/2021 7:52 AM EDT December 01, 2021 PID: [id number] Breanna Phelps [address] [place] [address] Dear Ms. Phelps, Your recent breast imaging exam on 11/30/2021 showed a possible finding that requires additional imaging studies for a complete evaluation. Most such findings are probably benign (not cancer). If you have a healthcare provider who ordered/prescribed your screening mammogram: Please call [phone] or [phone] to schedule an appointment for your additional imaging (if youhave not already done so). If you DO NOT have a healthcare provider (ie you did not have an order/prescription for your screening mammogram): Please call to schedule an appointment for your additional imaging (if you have not already done so). You must have an order/prescription from your physician when calling to schedule your appointment. If your order/prescription is not electronic, you must bring the hard copy with you on the day of your exam to avoid delays. Your imaging studies and reports are [facility] as part of your permanent medical record, and are available for your continuing care. Thank you for allowing us to help in meeting your health care needs. Sincerely, Dr. Mendes Interpreting Radiologist [facility] (Additional imaging) documented in this encounterOur Lady Of Mercy Hospital04-19-2022 History of Present illness Narrative* RT Fabiola(R) - 11/30/2021 2:40 PM EDT Radiology Service Progress Note PATIENT NAME: Breanna Phelps DATE OF SERVICE: November 30, 2021 TIME: 2:35 PM PATIENT IDENTITY VERIFICATION COMPLETED USING TWO (2) IDENTIFIERS: Name and Date of confirmedby patient verbally. FALL SCREENING: Has the patient had 2 falls in the last year or 1 fall with injury or currently using an Ambulatory Assistive Device (Walker, Cane, Wheelchair, Crutches, etc.)? No PATIENT GENDER DATA: Female. status: : No status: NO. PATIENT RELEVANT IMPLANT DATA REVIEWED: Not Applicable RADIOLOGY DEPARTMENT: Mammography PERIPHERAL IV DATA: Not applicable SIGNED BY: RT Fabiola(R) November 30, 2021 2:35 PM documented in this encounterOur Lady Of Mercy Hospital04-14-2022 Instructions* Patient Instructions* Juan J Hi MD - 11/25/2021 7:25 PM EDT STOP BUSPIRONE ONE WEEK FROM NOW. documented in this encounterOur Lady Of Mercy Hospital04-14-2022 History of Present illness Narrative* Juan J Hi MD - 11/25/2021 7:00 PM EDT This note was created using 5 examples. Subjective Breanna Phelps is a 80 year old female here with her son. Lumbago was a progressively worsening chronic condition that was increasingly associated with hip pains, upper back pains, and unsteadiness of her gait. Other pains were right leg. She also mentioned soreness of the right breast. She was prescribed tramadol but used it sparingly. She was dealing with stressors from her spouse's dementia. She was on buspirone which has lost its effectiveness. Her blood pressure had likewise been less controlled. Her diet had not changed. Review of Systems Constitutional: Negative. HENT: Negative. Respiratory: Negative for cough, chest tightness and shortness of breath. Cardiovascular: Positive for chest pain. Negative for palpitations and leg swelling. Gastrointestinal: Negative. Musculoskeletal: Positive for back pain, gait problem and myalgias. Psychiatric/Behavioral: Positive for dysphoric mood. Negative for self-injury and suicidal ideas. The patient is nervous/anxious. ACTIVE PROBLEM LIST Lumbago Other Hyperlipidemia Essential Hypertension, Benign Asthma Osteoporosis Osteoarthrosis Involving Lower Leg Vitamin D Deficiency Cad (Coronary Artery Disease) Gastroesophageal Reflux Disease Without Esophagitis Small Fiber Neuropathy Urge Incontinence Dizziness and Giddiness Obesity, Class II, Bmi 35-39.9 Adjustment Disorder With Mixed Anxiety and Depressed Mood Takotsubo Cardiomyopathy Current Outpatient Medications Medication Sig traMADol (ULTRAM) 50 mg tablet Take 1 tablet by mouth twice daily. For back pain. lisinopril (ZESTRIL, PRINIVIL) 10 mg tablet Take 1 tablet by mouth once daily. busPIRone (BUSPAR) 7.5 mg tablet Take 1 tablet by mouth twice daily. carvedilol (COREG) 12.5 mg tablet Take 1 tablet by mouth twice daily. oxybutynin ER (DITROPAN XL) 15 mg 24 hr Extended Rel Tab Take 1 tablet by mouth once daily. Cholecalciferol, Vitamin D3, 125 mcg (5,000 unit) cap Take 1 capsule by mouth once daily. acetaminophen (TYLENOL) 500 mg tablet Take 1 tablet by mouth every 6 hours as needed for pain. atorvastatin (LIPITOR) 40 mg tablet Take 1 tablet by mouth once daily. nitroglycerin sublingual (NITROQUICK) 0.4 mg SL tablet Dissolve 1 tablet under the tongue every 5 minutes as needed for Chest Pain. Incontinence Pad, Liner, Disp pads 5 Each once daily. nystatin (MYCOSTATIN) powder Apply 1 application to affected area three times daily. Aspirin 81 mg ORAL Tab Take 1 tablet by mouth once daily. Take with food. No current facility-administered medications for this visit. Objective BP 110/68 Pulse 69 Temp 36.4 C (97.5 F) Resp 16 Ht 154.9 cm (5' 1) Wt 75.8 kg (167 lb) BMI 31.55 kg/m Physical Exam Constitutional: General: She is not in acute distress. Appearance: She is obese. She is not ill-appearing. HENT: Head: Normocephalic. Eyes: General: No scleral icterus. Conjunctiva/sclera: Conjunctivae normal. Cardiovascular: Rate and Rhythm: Normal rate and regular rhythm. Heart sounds: No murmur heard. No gallop. Pulmonary: Effort: No respiratory distress. Breath sounds: No wheezing or rales. Chest: Breasts: Right: Tenderness present. No mass. Left: No mass or tenderness. Abdominal: Palpations: Abdomen is soft. Tenderness: There is no abdominal tenderness. Musculoskeletal: General: No swelling. Cervical back: Decreased range of motion. Thoracic back: Deformity present. Decreased range of motion. Lumbar back: Deformity present. Decreased range of motion. Negative right straight leg raise test and negative left straight leg raise test. Right lower leg: No edema. Left lower leg: No edema. Lymphadenopathy: Cervical: No cervical adenopathy. Neurological: General: No focal deficit present. Cranial Nerves: No cranial nerve deficit. Sensory: No sensory deficit. Motor: Tremor and abnormal muscle tone present. No weakness. Coordination: Coordination normal. Gait: Gait abnormal. Comments: Shuffling gait. Uses a cane. Intention tremors of both hands. Cogwheeling present. Psychiatric: Attention and Perception: Attention normal. Mood and Affect: Affect is flat. Speech: Speech is delayed. Behavior: Behavior normal. Component Latest Ref Rng & Units 11/05/2021 Protein, Total 6.3 - 8.0 g/dL 7.5 Albumin 3.9 - 4.9 g/dL 4.5 Calcium 8.5 - 10.2 mg/dL 9.8 Bilirubin, Total 0.2 - 1.3 mg/dL 0.7 Alkaline Phosphatase 34 - 123 U/L 55 AST 13 - 35 U/L 35 ALT 7 - 38 U/L 20 Glucose 74 - 99 mg/dL 106 (H) BUN 7 - 21 mg/dL 19 Creatinine 0.58 - 0.96 mg/dL 0.70 Sodium 136 - 144 mmol/L 139 Potassium 3.7 - 5.1 mmol/L 4.7 Chloride 97 - 105 mmol/L 104 CO2 22 - 30 mmol/L 25 Anion Gap 9 - 18 mmol/L 10 eGFR >=60 mL/min/1.73m 88 WBC 3.70 - 11.00 k/uL 6.04 RBC 3.90 - 5.20 m/uL 3.79 (L) Hemoglobin 11.5 - 15.5 g/dL 14.0 Hematocrit 36.0 - 46.0 % 40.7 MCV 80.0 - 100.0 fL 107.4 (H) MCH 26.0 - 34.0 pg 36.9 (H) MCHC 30.5 - 36.0 g/dL 34.4 RDW-CV 11.5 - 15.0 % 11.9 Platelet Count 150 - 400 k/uL 254 MPV 9.0 - 12.7 fL 11.2 Absolute nRBC <0.01 k/uL <0.01 Cholesterol, Total <200 mg/dL 124 Triglyceride <150 mg/dL 62 HDL Cholesterol >39 mg/dL 40 Non HDL Cholesterol <130 mg/dL 84 Fasting Time hrs 13 VLDL Cholesterol <30 mg/dL 12 TC:HDL Ratio <5.10 3.10 LDL Cholesterol <100 mg/dL 72 LDL:HDL Ratio <2.54 1.80 Assessment and Plan 1. Medicare annual wellness visit, subsequent - ICD9: V70.0, ICD10: Z00.00 (primary diagnosis) See other note. 2. Tremor - ICD9: 781.0, ICD10: R25.1 Evaluate for parkinsonism. - CONSULT TO NEUROLOGY 3. Unsteady gait - ICD9: 781.2, ICD10: R26.81 See #2. - CONSULT TO NEUROLOGY 4. Adjustment disorder with mixed anxiety and depressed mood - ICD9: 309.28, ICD10: F43.23 Shared Medical Decision Making was done: Medication: duloxetine. 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 Risks: Possible side effects were discussed. Possible interactions: n/a. Warnings: n/a. Approved use or off label use: approved. Options: discontinue buspirone. - DULOXETINE 20 MG CAPSULE,DELAYED RELEASE 1st month, then DULOXETINE 30 MG CAPSULE,DELAYED RELEASE 5. Chronic bilateral low back pain with bilateral sciatica - ICD9: 724.2, 724.3, 338.29, ICD10: M54.42, M54.41, G89.29 See above. - DULOXETINE 20 MG CAPSULE,DELAYED RELEASE - DULOXETINE 30 MG CAPSULE,DELAYED RELEASE 6. Breast pain - ICD9: 611.71, ICD10: N64.4 Muscular. 7. Encounter for screening mammogram for malignant neoplasm of breast - ICD9: V76.12, ICD10: Z12.31 - MERLIN SCREENING Juan J Hi MD * Juan J Hi MD - 11/25/2021 6:44 PM EDT Medicare Yearly Visit Medical B eligibilty date 10/12/2008 Date of last exam 10/01/2020 PAST MEDICAL HISTORY Diagnosis Date Acid reflux Adjustment disorder with depressed mood Anemia Asthma CAD (coronary artery disease) 11/24/2011 Cervical spondylosis with radiculopathy 05/14/2012 CHOLECYSTITIS SEE ALSO GALLBLADDER ACUTE WITH CALCULUS( Without obstruction) 12/11/2008 DERANGEMENT MENISCUS NEC 03/25/2008 Diaphragmatic hernia without mention of obstruction or gangrene Disorder of bone and cartilage, unspecified 06/06/2007 Osteopenia Diverticulosis of colon (without mention of hemorrhage) Dry eyes, bilateral Essential hypertension, benign High cholesterol Hypersomnia 03/17/2014 Dr. Worrell Hypertension Impaired fasting glucose Lumbago Miscarriage NSTEMI (non-ST elevated myocardial infarction) (HCC) 03/25/2021 Obesity, unspecified YAMILETH (obstructive sleep apnea) 04/17/2012 Other and unspecified hyperlipidemia Rheumatic fever Small fiber neuropathy 04/03/2012 Takotsubo cardiomyopathy 03/25/2021 Ulcer disease Unspecified asthma(493.90) 11/24/2005 Unspecified vitamin D deficiency 07/04/2008 Urge incontinence 08/17/2016 Vertigo 12/28/2010 Vitamin B deficiency PAST SURGICAL HISTORY Procedure Laterality Date APPENDECTOMY 1967 ARTHROSCOPY KNEE DIAGNOSTIC W/WO SYNOVIAL BX SPX Right 12/2007 Arthroscopy, knee, right knee. COLONOSCOPY FLX DX W/COLLJ SPEC WHEN PFRMD 03/09/2012 Colonoscopy ESOPHAGOGASTRODUODENOSCOPY TRANSORAL DIAGNOSTIC 03/09/2012 EGD LAPS SURG CHOLECYSTECTOMY W/CHOLANGIOGRAPHY 11/29/2008 LEFT HEART CATH,PERCUTANEOUS 03/25/2021 REM LESIO TRUNK,ARM,LEG 1.1 -2.0CM 01/27/2010 Exc. RLQ skin lesion TOTAL ABDOMINAL HYSTERECT W/WO RMVL TUBE OVARY 1967 TRANSCATH STENT INIT VESSEL,PERCUT 11/24/2011 Transcath stent init vessel percut, LAD ALLERGIES: Patient has no known allergies. Medications reviewed: Yes FAMILY HISTORY Problem Relation Age of Onset other (heart attack) Mother other (TB) Father Diabetes Maternal Grandfather Breast Cancer Sister other (lung cancer) Brother Coronary Artery Disease Brother Genitourinary () Brother hemodialysis Stroke Sister IC aneurysm Alzheimer's Disease Sister Psoriasis Sister SOCIAL HISTORY: Social History Tobacco Use Smoking status: Never Smoker Smokeless tobacco: Never Used Substance Use Topics Alcohol use: No Drug use: No Breanna denies regular aerobic exercise. She watches her diet for sodium, low fat and low cholesterol most of the time. List of current specialists seen: Dr. Alvarado, cardiology. Leandro Kingston, Senior Stack Engineer. Dr. Srikanth Murguia. End of Live Planning discussed including patients advanced directive wishes: Yes I am willing to follow Breanna's advanced directives. PHQ-2 / Depression screen She in the past two weeks admits to having felt with little interest or pleasure in doing things. Functional Ability/Safety Screen 1. Was the patient's timed Up and Go test unsteady or longer than 30 seconds? Yes 2. Does the patient need help with the phone, transportation, shopping,preparing meals, housework, laundry, medications or managing money? No 3. Does your home have rugs in the hallway, lack of grab bars in the bathroom, lack of handrails onthe stairs or have poor lighting? No Hearing Evaluation: normal PHYSICAL EXAM BP 132/76 Pulse 73 Temp 36.4 C (97.5 F) Resp 16 Ht 154.9 cm (5' 1) Wt 75.8 kg (167 lb) BMI 31.55 kg/m Alert and oriented X 3: YES Body mass index is 31.55 kg/m . Visual acuity: OD: 20/40 OS: 20/ 40 OU: 20/40 The Mini Cog(c): Word recall=2/3 + Clock drawing=2/2=4/5. (<3 is positive). ASSESSMENT/PLAN: 80 year old female The following prevention plan was discussed during the office visit and provided to the patient: - Weight Loss - Fall avoidance - Vaccines recommended COVID-19 and Shingrix at pharmacy - ADVANCE CARE PLAN DISCUSSION Juan J Hi MD [facility] Past illness Narrative* Problem Noted Date Resolved Date Adjustment disorder with depressed mood 10/23/19 20 10/01/2020 Obesity, Class I, BMI 30-34.9 02/07/2018 Dry mouth 08/17/2016 09/14/2018 Chronic nonallergic rhinitis 03/07/201608/2018 Hypersomnia 03/17/2014 09/29/2015 Overview: Dr. Worrell Primary generalized (osteo)arthritis 07/31/2012 09/14/2018 Overview: Affecting hands and feet Pain in limb 05/14/2012 09/14/2012 Cervical spondylosis with radiculopathy 05/14/20 12 09/29/2015 YAMILETH (obstructive sleep apnea) 04/17/2012 Overview: Per Dr Worrell. Sleep study 04/09/12. Mild. Not on CPAP. Special screening for malignant neoplasms, colon 03/09/2012 09/14/2012 Diverticulosis of colon (without mention of hemo rrhage) 03/09/2012 09/14/2012 Diaphragmatic hernia without mention of obstruction or gangrene 03/09/2012 09/14/2012 B12 deficiency 12/16/2011 09/14/2018 Vertigo 12/28/2010 09/14/2012 Skin infection 01/07/2010 09/14/2012 Derangement of meniscus, not elsewhere classifie d 03/25/2008 09/14/2012 Sprain of neck 08/10/2007 06/24/2008 Sprain and strain of unspeci fied site of shoulder and upper arm 08/10/2007 06/24/2008 Sprain and strain of unspecified site of knee an d leg 08/10/2007 09/14/2012 Contusion of unspecified site 08/10/2007 Impaired fasting glucose 016 Obesity, unspecified 02/07/2018 documented as of this encounter (statuses as of 12/01/2021) [facility] Past illness Narrative* Problem Noted Date Resolved Date Adjustment disorder with depressed mood 10/23/19 20 10/01/2020 Obesity, Class I, BMI 30-34.9 02/07/2018 Dry mouth 08/17/2016 09/14/2018 Chronic nonallergic rhinitis 03/07/201608/2018 Hypersomnia 03/17/2014 09/29/2015 Overview: Dr. Worrell Primary generalized (osteo)arthritis 07/31/2012 09/14/2018 Overview: Affecting hands and feet Pain in limb 05/14/2012 09/14/2012 Cervical spondylosis with radiculopathy 05/14/20 12 09/29/2015 YAMILETH (obstructive sleep apnea) 04/17/2012 Overview: Per Dr Worrell. Sleep study 04/09/12. Mild. Not on CPAP. Special screening for malignant neoplasms, colon 03/09/2012 09/14/2012 Diverticulosis of colon (without mention of hemo rrhage) 03/09/2012 09/14/2012 Diaphragmatic hernia without mention of obstruction or gangrene 03/09/2012 09/14/2012 B12 deficiency 12/16/2011 09/14/2018 Vertigo 12/28/2010 09/14/2012 Skin infection 01/07/2010 09/14/2012 Derangement of meniscus, not elsewhere classifie d 03/25/2008 09/14/2012 Sprain of neck 08/10/2007 06/24/2008 Sprain and strain of unspeci fied site of shoulder and upper arm 08/10/2007 06/24/2008 Sprain and strain of unspecified site of knee an d leg 08/10/2007 09/14/2012 Contusion of unspecified site 08/10/2007 Impaired fasting glucose 016 Obesity, unspecified 02/07/2018 documented as of this encounter (statuses as of 12/01/2021) [facility] Narrative* Problem Noted Date Resolved Date Adjustment disorder with depressed mood 10/23/19 20 10/01/2020 Obesity, Class I, BMI 30-34.9 02/07/2018 Dry mouth 08/17/2016 09/14/2018 Chronic nonallergic rhinitis 03/07/201608/2018 Hypersomnia 03/17/2014 09/29/2015 Overview: Dr. Worrell Primary generalized (osteo)arthritis 07/31/2012 09/14/2018 Overview: Affecting hands and feet Pain in limb 05/14/2012 09/14/2012 Cervical spondylosis with radiculopathy 05/14/20 12 09/29/2015 YAMILETH (obstructive sleep apnea) 04/17/2012 Overview: Per Dr Worrell. Sleep study 04/09/12. Mild. Not on CPAP. Special screening for malignant neoplasms, colon 03/09/2012 09/14/2012 Diverticulosis of colon (without mention of hemo rrhage) 03/09/2012 09/14/2012 Diaphragmatic hernia without mention of obstruction or gangrene 03/09/2012 09/14/2012 B12 deficiency 12/16/2011 09/14/2018 Vertigo 12/28/2010 09/14/2012 Skin infection 01/07/2010 09/14/2012 Derangement of meniscus, not elsewhere classifie d 03/25/2008 09/14/2012 Sprain of neck 08/10/2007 06/24/2008 Sprain and strain of unspeci fied site of shoulder and upper arm 08/10/2007 06/24/2008 Sprain and strain of unspecified site of knee an d leg 08/10/2007 09/14/2012 Contusion of unspecified site 08/10/2007 Impaired fasting glucose 016 Obesity, unspecified 02/07/2018 documented as of this encounter (statuses as of 12/03/2021) [facility] Narrative* Problem Noted Date Resolved Date Adjustment disorder with depressed mood 10/23/19 20 10/01/2020 Obesity, Class I, BMI 30-34.9 02/07/2018 Dry mouth 08/17/2016 09/14/2018 Chronic nonallergic rhinitis 03/07/201608/2018 Hypersomnia 03/17/2014 09/29/2015 Overview: Dr. Worrell Primary generalized (osteo)arthritis 07/31/2012 09/14/2018 Overview: Affecting hands and feet Pain in limb 05/14/2012 09/14/2012 Cervical spondylosis with radiculopathy 05/14/20 12 09/29/2015 YAMILETH (obstructive sleep apnea) 04/17/2012 Overview: Per Dr Worrell. Sleep study 04/09/12. Mild. Not on CPAP. Special screening for malignant neoplasms, colon 03/09/2012 09/14/2012 Diverticulosis of colon (without mention of hemo rrhage) 03/09/2012 09/14/2012 Diaphragmatic hernia without mention of obstruction or gangrene 03/09/2012 09/14/2012 B12 deficiency 12/16/2011 09/14/2018 Vertigo 12/28/2010 09/14/2012 Skin infection 01/07/2010 09/14/2012 Derangement of meniscus, not elsewhere classifie d 03/25/2008 09/14/2012 Sprain of neck 08/10/2007 06/24/2008 Sprain and strain of unspeci fied site of shoulder and upper arm 08/10/2007 06/24/2008 Sprain and strain of unspecified site of knee an d leg 08/10/2007 09/14/2012 Contusion of unspecified site 08/10/2007 Impaired fasting glucose 016 Obesity, unspecified 02/07/2018 documented as of this encounter (statuses as of 12/15/2021) [facility] Narrative* Problem Noted Date Resolved Date Adjustment disorder with depressed mood 10/23/19 20 10/01/2020 Obesity, Class I, BMI 30-34.9 02/07/2018 Dry mouth 08/17/2016 09/14/2018 Chronic nonallergic rhinitis 03/07/201608/2018 Hypersomnia 03/17/2014 09/29/2015 Overview: Dr. Worrell Primary generalized (osteo)arthritis 07/31/2012 09/14/2018 Overview: Affecting hands and feet Pain in limb 05/14/2012 09/14/2012 Cervical spondylosis with radiculopathy 05/14/20 12 09/29/2015 YAMILETH (obstructive sleep apnea) 04/17/2012 Overview: Per Dr Worrell. Sleep study 04/09/12. Mild. Not on CPAP. Special screening for malignant neoplasms, colon 03/09/2012 09/14/2012 Diverticulosis of colon (without mention of hemo rrhage) 03/09/2012 09/14/2012 Diaphragmatic hernia without mention of obstruction or gangrene 03/09/2012 09/14/2012 B12 deficiency 12/16/2011 09/14/2018 Vertigo 12/28/2010 09/14/2012 Skin infection 01/07/2010 09/14/2012 Derangement of meniscus, not elsewhere classifie d 03/25/2008 09/14/2012 Sprain of neck 08/10/2007 06/24/2008 Sprain and strain of unspeci fied site of shoulder and upper arm 08/10/2007 06/24/2008 Sprain and strain of unspecified site of knee an d leg 08/10/2007 09/14/2012 Contusion of unspecified site 08/10/2007 Impaired fasting glucose 016 Obesity, unspecified 02/07/2018 documented as of this encounter (statuses as of 12/27/2021) [facility] Narrative* Problem Noted Date Resolved Date Adjustment disorder with depressed mood 10/23/19 20 10/01/2020 Obesity, Class I, BMI 30-34.9 02/07/2018 Dry mouth 08/17/2016 09/14/2018 Chronic nonallergic rhinitis 03/07/201608/2018 Hypersomnia 03/17/2014 09/29/2015 Overview: Dr. Worrell Primary generalized (osteo)arthritis 07/31/2012 09/14/2018 Overview: Affecting hands and feet Pain in limb 05/14/2012 09/14/2012 Cervical spondylosis with radiculopathy 05/14/20 12 09/29/2015 YAMILETH (obstructive sleep apnea) 04/17/2012 Overview: Per Dr Worrell. Sleep study 04/09/12. Mild. Not on CPAP. Special screening for malignant neoplasms, colon 03/09/2012 09/14/2012 Diverticulosis of colon (without mention of hemo rrhage) 03/09/2012 09/14/2012 Diaphragmatic hernia without mention of obstruction or gangrene 03/09/2012 09/14/2012 B12 deficiency 12/16/2011 09/14/2018 Vertigo 12/28/2010 09/14/2012 Skin infection 01/07/2010 09/14/2012 Derangement of meniscus, not elsewhere classifie d 03/25/2008 09/14/2012 Sprain of neck 08/10/2007 06/24/2008 Sprain and strain of unspeci fied site of shoulder and upper arm 08/10/2007 06/24/2008 Sprain and strain of unspecified site of knee an d leg 08/10/2007 09/14/2012 Contusion of unspecified site 08/10/2007 Impaired fasting glucose 016 Obesity, unspecified 02/07/2018 documented as of this encounter (statuses as of 01/20/2022) [facility]ative* Problem Noted Date Resolved Date Adjustment disorder with depressed mood 10/23/19 20 10/01/2020 Obesity, Class I, BMI 30-34.9 02/07/2018 Dry mouth 08/17/2016 09/14/2018 Chronic nonallergic rhinitis 03/07/201608/2018 Hypersomnia 03/17/2014 09/29/2015 Overview: Dr. Worrell Primary generalized (osteo)arthritis 07/31/2012 09/14/2018 Overview: Affecting hands and feet Pain in limb 05/14/2012 09/14/2012 Cervical spondylosis with radiculopathy 05/14/20 12 09/29/2015 YAMILETH (obstructive sleep apnea) 04/17/2012 Overview: Per Dr Worrell. Sleep study 04/09/12. Mild. Not on CPAP. Special screening for malignant neoplasms, colon 03/09/2012 09/14/2012 Diverticulosis of colon (without mention of hemo rrhage) 03/09/2012 09/14/2012 Diaphragmatic hernia without mention of obstruction or gangrene 03/09/2012 09/14/2012 B12 deficiency 12/16/2011 09/14/2018 Vertigo 12/28/2010 09/14/2012 Skin infection 01/07/2010 09/14/2012 Derangement of meniscus, not elsewhere classifie d 03/25/2008 09/14/2012 Sprain of neck 08/10/2007 06/24/2008 Sprain and strain of unspeci fied site of shoulder and upper arm 08/10/2007 06/24/2008 Sprain and strain of unspecified site of knee an d leg 08/10/2007 09/14/2012 Contusion of unspecified site 08/10/2007 Impaired fasting glucose 016 Obesity, unspecified 02/07/2018 documented as of this encounter (statuses as of 01/23/2022) [facility] Narrative* Problem Noted Date Resolved Date Adjustment disorder with depressed mood 10/23/19 20 10/01/2020 Obesity, Class I, BMI 30-34.9 02/07/2018 Dry mouth 08/17/2016 09/14/2018 Chronic nonallergic rhinitis 03/07/201608/2018 Hypersomnia 03/17/2014 09/29/2015 Overview: Dr. Worrell Primary generalized (osteo)arthritis 07/31/2012 09/14/2018 Overview: Affecting hands and feet Pain in limb 05/14/2012 09/14/2012 Cervical spondylosis with radiculopathy 05/14/20 12 09/29/2015 YAMILETH (obstructive sleep apnea) 04/17/2012 Overview: Per Dr Worrell. Sleep study 04/09/12. Mild. Not on CPAP. Special screening for malignant neoplasms, colon 03/09/2012 09/14/2012 Diverticulosis of colon (without mention of hemo rrhage) 03/09/2012 09/14/2012 Diaphragmatic hernia without mention of obstruction or gangrene 03/09/2012 09/14/2012 B12 deficiency 12/16/2011 09/14/2018 Vertigo 12/28/2010 09/14/2012 Skin infection 01/07/2010 09/14/2012 Derangement of meniscus, not elsewhere classifie d 03/25/2008 09/14/2012 Sprain of neck 08/10/2007 06/24/2008 Sprain and strain of unspeci fied site of shoulder and upper arm 08/10/2007 06/24/2008 Sprain and strain of unspecified site of knee an d leg 08/10/2007 09/14/2012 Contusion of unspecified site 08/10/2007 Impaired fasting glucose 016 Obesity, unspecified 02/07/2018 documented as of this encounter (statuses as of 02/18/2022) [facility]arrative* Problem Noted Date Resolved Date Adjustment disorder with depressed mood 10/23/19 20 10/01/2020 Obesity, Class I, BMI 30-34.9 02/07/2018 Dry mouth 08/17/2016 09/14/2018 Chronic nonallergic rhinitis 03/07/201608/2018 Hypersomnia 03/17/2014 09/29/2015 Overview: Dr. Worrell Primary generalized (osteo)arthritis 07/31/2012 09/14/2018 Overview: Affecting hands and feet Pain in limb 05/14/2012 09/14/2012 Cervical spondylosis with radiculopathy 05/14/20 12 09/29/2015 YAMILETH (obstructive sleep apnea) 04/17/2012 Overview: Per Dr Worrell. Sleep study 04/09/12. Mild. Not on CPAP. Special screening for malignant neoplasms, colon 03/09/2012 09/14/2012 Diverticulosis of colon (without mention of hemo rrhage) 03/09/2012 09/14/2012 Diaphragmatic hernia without mention of obstruction or gangrene 03/09/2012 09/14/2012 B12 deficiency 12/16/2011 09/14/2018 Vertigo 12/28/2010 09/14/2012 Skin infection 01/07/2010 09/14/2012 Derangement of meniscus, not elsewhere classifie d 03/25/2008 09/14/2012 Sprain of neck 08/10/2007 06/24/2008 Sprain and strain of unspeci fied site of shoulder and upper arm 08/10/2007 06/24/2008 Sprain and strain of unspecified site of knee an d leg 08/10/2007 09/14/2012 Contusion of unspecified site 08/10/2007 Impaired fasting glucose 016 Obesity, unspecified 02/07/2018 documented as of this encounter (statuses as of 02/21/2022) [facility]arrative* Problem Noted Date Resolved Date Adjustment disorder with depressed mood 10/23/19 20 10/01/2020 Obesity, Class I, BMI 30-34.9 02/07/2018 Dry mouth 08/17/2016 09/14/2018 Chronic nonallergic rhinitis 03/07/201608/2018 Hypersomnia 03/17/2014 09/29/2015 Overview: Dr. Worrell Primary generalized (osteo)arthritis 07/31/2012 09/14/2018 Overview: Affecting hands and feet Pain in limb 05/14/2012 09/14/2012 Cervical spondylosis with radiculopathy 05/14/20 12 09/29/2015 YAMILETH (obstructive sleep apnea) 04/17/2012 Overview: Per Dr Worrell. Sleep study 04/09/12. Mild. Not on CPAP. Special screening for malignant neoplasms, colon 03/09/2012 09/14/2012 Diverticulosis of colon (without mention of hemo rrhage) 03/09/2012 09/14/2012 Diaphragmatic hernia without mention of obstruction or gangrene 03/09/2012 09/14/2012 B12 deficiency 12/16/2011 09/14/2018 Vertigo 12/28/2010 09/14/2012 Skin infection 01/07/2010 09/14/2012 Derangement of meniscus, not elsewhere classifie d 03/25/2008 09/14/2012 Sprain of neck 08/10/2007 06/24/2008 Sprain and strain of unspeci fied site of shoulder and upper arm 08/10/2007 06/24/2008 Sprain and strain of unspecified site of knee an d leg 08/10/2007 09/14/2012 Contusion of unspecified site 08/10/2007 Impaired fasting glucose 016 Obesity, unspecified 02/07/2018 documented as of this encounter (statuses as of 02/28/2022) [facility]arr[facility]* Problem Noted Date Resolved Date Adjustment disorder with depressed mood 10/23/19 20 10/01/2020 Obesity, Class I, BMI 30-34.9 02/07/2018 Dry mouth 08/17/2016 09/14/2018 Chronic nonallergic rhinitis 03/07/201608/2018 Hypersomnia 03/17/2014 09/29/2015 Overview: Dr. Worrell Primary generalized (osteo)arthritis 07/31/2012 09/14/2018 Overview: Affecting hands and feet Pain in limb 05/14/2012 09/14/2012 Cervical spondylosis with radiculopathy 05/14/20 12 09/29/2015 YAMILETH (obstructive sleep apnea) 04/17/2012 Overview: Per Dr Worrell. Sleep study 04/09/12. Mild. Not on CPAP. Special screening for malignant neoplasms, colon 03/09/2012 09/14/2012 Diverticulosis of colon (without mention of hemo rrhage) 03/09/2012 09/14/2012 Diaphragmatic hernia without mention of obstruction or gangrene 03/09/2012 09/14/2012 B12 deficiency 12/16/2011 09/14/2018 Vertigo 12/28/2010 09/14/2012 Skin infection 01/07/2010 09/14/2012 Derangement of meniscus, not elsewhere classifie d 03/25/2008 09/14/2012 Sprain of neck 08/10/2007 06/24/2008 Sprain and strain of unspeci fied site of shoulder and upper arm 08/10/2007 06/24/2008 Sprain and strain of unspecified site of knee an d leg 08/10/2007 09/14/2012 Contusion of unspecified site 08/10/2007 Impaired fasting glucose 016 Obesity, unspecified 02/07/2018 documented as of this encounter (statuses as of 03/03/2022) [facility]* Problem Noted Date Resolved Date Adjustment disorder with depressed mood 10/23/19 20 10/01/2020 Obesity, Class I, BMI 30-34.9 02/07/2018 Dry mouth 08/17/2016 09/14/2018 Chronic nonallergic rhinitis 03/07/201608/2018 Hypersomnia 03/17/2014 09/29/2015 Overview: Dr. Worrell Primary generalized (osteo)arthritis 07/31/2012 09/14/2018 Overview: Affecting hands and feet Pain in limb 05/14/2012 09/14/2012 Cervical spondylosis with radiculopathy 05/14/2009/29/2015 YAMILETH (obstructive sleep apnea) 04/17/2012 Overview: Per Dr Worrell. Sleep study 04/09/12. Mild. Not on CPAP. Special screening for malignant neoplasms, colon 03/09/2012 09/14/2012 Diverticulosis of colon (without mention of hemo rrhage) 03/09/2012 09/14/2012 Diaphragmatic hernia without mention of obstruction or gangrene 03/09/2012 09/14/2012 B12 deficiency 12/16/2011 09/14/2018 Vertigo 12/28/2010 09/14/2012 Skin infection 01/07/2010 09/14/2012 Derangement of meniscus, not elsewhere classifie d 03/25/2008 09/14/2012 Sprain of neck 08/10/2007 06/24/2008 Sprain and strain of unspeci fied site of shoulder and upper arm 08/10/2007 06/24/2008 Sprain and strain of unspecified site of knee an d leg 08/10/2007 09/14/2012 Contusion of unspecified site 08/10/2007 Impaired fasting glucose 016 Obesity, unspecified 02/07/2018 documented as of this encounter (statuses as of 04/06/2022) [facility] Narrative* Problem Noted Date Resolved Date Adjustment disorder with depressed mood 10/23/19 20 10/01/2020 Obesity, Class I, BMI 30-34.9 02/07/2018 Dry mouth 08/17/2016 09/14/2018 Chronic nonallergic rhinitis 03/07/201608/2018 Hypersomnia 03/17/2014 09/29/2015 Overview: Dr. Worrell Primary generalized (osteo)arthritis 07/31/2012 09/14/2018 Overview: Affecting hands and feet Pain in limb 05/14/2012 09/14/2012 Cervical spondylosis with radiculopathy 05/14/20 12 09/29/2015 YAMILETH (obstructive sleep apnea) 04/17/2012 Overview: Per Dr Worrell. Sleep study 04/09/12. Mild. Not on CPAP. Special screening for malignant neoplasms, colon 03/09/2012 09/14/2012 Diverticulosis of colon (without mention of hemo rrhage) 03/09/2012 09/14/2012 Diaphragmatic hernia without mention of obstruction or gangrene 03/09/2012 09/14/2012 B12 deficiency 12/16/2011 09/14/2018 Vertigo 12/28/2010 09/14/2012 Skin infection 01/07/2010 09/14/2012 Derangement of meniscus, not elsewhere classifie d 03/25/2008 09/14/2012 Sprain of neck 08/10/2007 06/24/2008 Sprain and strain of unspeci fied site of shoulder and upper arm 08/10/2007 06/24/2008 Sprain and strain of unspecified site of knee an d leg 08/10/2007 09/14/2012 Contusion of unspecified site 08/10/2007 Impaired fasting glucose 016 Obesity, unspecified 02/07/2018 documented as of this encounter (statuses as of 04/27/2022) [facility]* Problem Noted Date Resolved Date Adjustment disorder with depressed mood 10/23/19 20 10/01/2020 Obesity, Class I, BMI 30-34.9 02/07/2018 Dry mouth 08/17/2016 09/14/2018 Chronic nonallergic rhinitis 03/07/201608/2018 Hypersomnia 03/17/2014 09/29/2015 Overview: Dr. Worrell Primary generalized (osteo)arthritis 07/31/2012 09/14/2018 Overview: Affecting hands and feet Pain in limb 05/14/2012 09/14/2012 Cervical spondylosis with radiculopathy 05/14/20 12 09/29/2015 YAMILETH (obstructive sleep apnea) 04/17/2012 Overview: Per Dr Worrell. Sleep study 04/09/12. Mild. Not on CPAP. Special screening for malignant neoplasms, colon 03/09/2012 09/14/2012 Diverticulosis of colon (without mention of hemo rrhage) 03/09/2012 09/14/2012 Diaphragmatic hernia without mention of obstruction or gangrene 03/09/2012 09/14/2012 B12 deficiency 12/16/2011 09/14/2018 Vertigo 12/28/2010 09/14/2012 Skin infection 01/07/2010 09/14/2012 Derangement of meniscus, not elsewhere classifie d 03/25/2008 09/14/2012 Sprain of neck 08/10/2007 06/24/2008 Sprain and strain of unspeci fied site of shoulder and upper arm 08/10/2007 06/24/2008 Sprain and strain of unspecified site of knee an d leg 08/10/2007 09/14/2012 Contusion of unspecified site 08/10/2007 Impaired fasting glucose 016 Obesity, unspecified 02/07/2018 documented as of this encounter (statuses as of 04/28/2022) [facility]arrative* Problem Noted Date Resolved Date Adjustment disorder with depressed mood 10/23/19 20 10/01/2020 Obesity, Class I, BMI 30-34.9 02/07/2018 Dry mouth 08/17/2016 09/14/2018 Chronic nonallergic rhinitis 03/07/201608/2018 Hypersomnia 03/17/2014 09/29/2015 Overview: Dr. Worrell Primary generalized (osteo)arthritis 07/31/2012 09/14/2018 Overview: Affecting hands and feet Pain in limb 05/14/2012 09/14/2012 Cervical spondylosis with radiculopathy 05/14/20 12 09/29/2015 YAMILETH (obstructive sleep apnea) 04/17/2012 Overview: Per Dr Worrell. Sleep study 04/09/12. Mild. Not on CPAP. Special screening for malignant neoplasms, colon 03/09/2012 09/14/2012 Diverticulosis of colon (without mention of hemo rrhage) 03/09/2012 09/14/2012 Diaphragmatic hernia without mention of obstruction or gangrene 03/09/2012 09/14/2012 B12 deficiency 12/16/2011 09/14/2018 Vertigo 12/28/2010 09/14/2012 Skin infection 01/07/2010 09/14/2012 Derangement of meniscus, not elsewhere classifie d 03/25/2008 09/14/2012 Sprain of neck 08/10/2007 06/24/2008 Sprain and strain of unspeci fied site of shoulder and upper arm 08/10/2007 06/24/2008 Sprain and strain of unspecified site of knee an d leg 08/10/2007 09/14/2012 Contusion of unspecified site 08/10/2007 Impaired fasting glucose 016 Obesity, unspecified 02/07/2018 documented as of this encounter (statuses as of 05/02/2022) [facility] Past illness Narrative* Problem Noted Date Resolved Date Adjustment disorder with depressed mood 10/23/19 20 10/01/2020 Obesity, Class I, BMI 30-34.9 02/07/2018 Dry mouth 08/17/2016 09/14/2018 Chronic nonallergic rhinitis 03/07/201608/2018 Hypersomnia 03/17/2014 09/29/2015 Overview: Dr. Worrell Primary generalized (osteo)arthritis 07/31/2012 09/14/2018 Overview: Affecting hands and feet Pain in limb 05/14/2012 09/14/2012 Cervical spondylosis with radiculopathy 05/14/20 12 09/29/2015 YAMILETH (obstructive sleep apnea) 04/17/2012 Overview: Per Dr Worrell. Sleep study 04/09/12. Mild. Not on CPAP. Special screening for malignant neoplasms, colon 03/09/2012 09/14/2012 Diverticulosis of colon (without mention of hemo rrhage) 03/09/2012 09/14/2012 Diaphragmatic hernia without mention of obstruction or gangrene 03/09/2012 09/14/2012 B12 deficiency 12/16/2011 09/14/2018 Vertigo 12/28/2010 09/14/2012 Skin infection 01/07/2010 09/14/2012 Derangement of meniscus, not elsewhere classifie d 03/25/2008 09/14/2012 Sprain of neck 08/10/2007 06/24/2008 Sprain and strain of unspeci fied site of shoulder and upper arm 08/10/2007 06/24/2008 Sprain and strain of unspecified site of knee an d leg 08/10/2007 09/14/2012 Contusion of unspecified site 08/10/2007 Impaired fasting glucose 016 Obesity, unspecified 02/07/2018 documented as of this encounter (statuses as of 05/04/2022) [facility] Past [facility] Narrative* Problem Noted Date Resolved Date Adjustment disorder with depressed mood 10/23/19 20 10/01/2020 Obesity, Class I, BMI 30-34.9 02/07/2018 Dry mouth 08/17/2016 09/14/2018 Chronic nonallergic rhinitis 03/07/201608/2018 Hypersomnia 03/17/2014 09/29/2015 Overview: Dr. Worrell Primary generalized (osteo)arthritis 07/31/2012 09/14/2018 Overview: Affecting hands and feet Pain in limb 05/14/2012 09/14/2012 Cervical spondylosis with radiculopathy 05/14/20 12 09/29/2015 YAMILETH (obstructive sleep apnea) 04/17/2012 Overview: Per Dr Worrell. Sleep study 04/09/12. Mild. Not on CPAP. Special screening for malignant neoplasms, colon 03/09/2012 09/14/2012 Diverticulosis of colon (without mention of hemo rrhage) 03/09/2012 09/14/2012 Diaphragmatic hernia without mention of obstruction or gangrene 03/09/2012 09/14/2012 B12 deficiency 12/16/2011 09/14/2018 Vertigo 12/28/2010 09/14/2012 Skin infection 01/07/2010 09/14/2012 Derangement of meniscus, not elsewhere classifie d 03/25/2008 09/14/2012 Sprain of neck 08/10/2007 06/24/2008 Sprain and strain of unspeci fied site of shoulder and upper arm 08/10/2007 06/24/2008 Sprain and strain of unspecified site of knee an d leg 08/10/2007 09/14/2012 Contusion of unspecified site 08/10/2007 Impaired fasting glucose 016 Obesity, unspecified 02/07/2018 documented as of this encounter (statuses as of 05/04/2022) [facility]03-[facility]-2020 History of Past illness Narrative* Problem Noted Date Resolved Date Adjustment disorder with depressed mood 10/23/1910/01/2020 Obesity, Class I, BMI 30-34.9 02/07/2018 Dry mouth 08/17/2016 09/14/2018 Chronic nonallergic rhinitis 03/07/201608/2018 Hypersomnia 03/17/2014 09/29/2015 Overview: Dr. Worrell Primary generalized (osteo)arthritis 07/31/2012 09/14/2018 Overview: Affecting hands and feet Pain in limb 05/14/2012 09/14/2012 Cervical spondylosis with radiculopathy 05/14/20 12 09/29/2015 YAMILETH (obstructive sleep apnea) 04/17/2012 Overview: Per Dr Worrell. Sleep study 04/09/12. Mild. Not on CPAP. Special screening for malignant neoplasms, colon 03/09/2012 09/14/2012 Diverticulosis of colon (without mention of hemo rrhage) 03/09/2012 09/14/2012 Diaphragmatic hernia without mention of obstruction or gangrene 03/09/2012 09/14/2012 B12 deficiency 12/16/2011 09/14/2018 Vertigo 12/28/2010 09/14/2012 Skin infection 01/07/2010 09/14/2012 Derangement of meniscus, not elsewhere classifie d 03/25/2008 09/14/2012 Sprain of neck 08/10/2007 06/24/2008 Sprain and strain of unspeci fied site of shoulder and upper arm 08/10/2007 06/24/2008 Sprain and strain of unspecified site of knee an d leg 08/10/2007 09/14/2012 Contusion of unspecified site 08/10/2007 Impaired fasting glucose 016 Obesity, unspecified 02/07/2018 documented as of this encounter (statuses as of 05/05/2022) [facility]2020 History of Past illness Narrative* Problem Noted Date Resolved Date Adjustment disorder with depressed mood 10/23/19 20 10/01/2020 Obesity, Class I, BMI 30-34.9 02/07/2018 Dry mouth 08/17/2016 09/14/2018 Chronic nonallergic rhinitis 03/07/201608/2018 Hypersomnia 03/17/2014 09/29/2015 Overview: Dr. Worrell Primary generalized (osteo)arthritis 07/31/2012 09/14/2018 Overview: Affecting hands and feet Pain in limb 05/14/2012 09/14/2012 Cervical spondylosis with radiculopathy 05/14/20 12 09/29/2015 YAMILETH (obstructive sleep apnea) 04/17/2012 Overview: Per Dr Worrell. Sleep study 04/09/12. Mild. Not on CPAP. Special screening for malignant neoplasms, colon 03/09/2012 09/14/2012 Diverticulosis of colon (without mention of hemo rrhage) 03/09/2012 09/14/2012 Diaphragmatic hernia without mention of obstruction or gangrene 03/09/2012 09/14/2012 B12 deficiency 12/16/2011 09/14/2018 Vertigo 12/28/2010 09/14/2012 Skin infection 01/07/2010 09/14/2012 Derangement of meniscus, not elsewhere classifie d 03/25/2008 09/14/2012 Sprain of neck 08/10/2007 06/24/2008 Sprain and strain of unspeci fied site of shoulder and upper arm 08/10/2007 06/24/2008 Sprain and strain of unspecified site of knee an d leg 08/10/2007 09/14/2012 Contusion of unspecified site 08/10/2007 Impaired fasting glucose 016 Obesity, unspecified 02/07/2018 documented as of this encounter (statuses as of 05/09/2022) [facility] History of Past illness Narrative* Problem Noted Date Resolved Date Adjustment disorder with depressed mood 10/23/19 20 10/01/2020 Obesity, Class I, BMI 30-34.9 02/07/2018 Dry mouth 08/17/2016 09/14/2018 Chronic nonallergic rhinitis 03/07/201608/2018 Hypersomnia 03/17/2014 09/29/2015 Overview: Dr. Worrell Primary generalized (osteo)arthritis 07/31/2012 09/14/2018 Overview: Affecting hands and feet Pain in limb 05/14/2012 09/14/2012 Cervical spondylosis with radiculopathy 05/14/20 12 09/29/2015 YAMILETH (obstructive sleep apnea) 04/17/2012 Overview: Per Dr Worrell. Sleep study 04/09/12. Mild. Not on CPAP. Special screening for malignant neoplasms, colon 03/09/2012 09/14/2012 Diverticulosis of colon (without mention of hemo rrhage) 03/09/2012 09/14/2012 Diaphragmatic hernia without mention of obstruction or gangrene 03/09/2012 09/14/2012 B12 deficiency 12/16/2011 09/14/2018 Vertigo 12/28/2010 09/14/2012 Skin infection 01/07/2010 09/14/2012 Derangement of meniscus, not elsewhere classifie d 03/25/2008 09/14/2012 Sprain of neck 08/10/2007 06/24/2008 Sprain and strain of unspeci fied site of shoulder and upper arm 08/10/2007 06/24/2008 Sprain and strain of unspecified site of knee an d leg 08/10/2007 09/14/2012 Contusion of unspecified site 08/10/2007 Impaired fasting glucose 016 Obesity, unspecified 02/07/2018 documented as of this encounter (statuses as of 05/10/2022) [facility]2020 History of Past illness Narrative* Problem Noted Date Resolved Date Adjustment disorder with depressed mood 10/23/19 20 10/01/2020 Obesity, Class I, BMI 30-34.9 02/07/2018 Dry mouth 08/17/2016 09/14/2018 Chronic nonallergic rhinitis 03/07/201608/2018 Hypersomnia 03/17/2014 09/29/2015 Overview: Dr. Worrell Primary generalized (osteo)arthritis 07/31/2012 09/14/2018 Overview: Affecting hands and feet Pain in limb 05/14/2012 09/14/2012 Cervical spondylosis with radiculopathy 05/14/20 12 09/29/2015 YAMILETH (obstructive sleep apnea) 04/17/2012 Overview: Per Dr Worrell. Sleep study 04/09/12. Mild. Not on CPAP. Special screening for malignant neoplasms, colon 03/09/2012 09/14/2012 Diverticulosis of colon (without mention of hemo rrhage) 03/09/2012 09/14/2012 Diaphragmatic hernia without mention of obstruction or gangrene 03/09/2012 09/14/2012 B12 deficiency 12/16/2011 09/14/2018 Vertigo 12/28/2010 09/14/2012 Skin infection 01/07/2010 09/14/2012 Derangement of meniscus, not elsewhere classifie d 03/25/2008 09/14/2012 Sprain of neck 08/10/2007 06/24/2008 Sprain and strain of unspeci fied site of shoulder and upper arm 08/10/2007 06/24/2008 Sprain and strain of unspecified site of knee an d leg 08/10/2007 09/14/2012 Contusion of unspecified site 08/10/2007 Impaired fasting glucose 016 Obesity, unspecified 02/07/2018 documented as of this encounter (statuses as of 05/10/2022) [facility] History of Past illness Narrative* Problem Noted Date Resolved Date Adjustment disorder with depressed mood 10/23/19 10/01/2020 Obesity, Class I, BMI 30-34.9 02/07/2018 Dry mouth 08/17/2016 09/14/2018 Chronic nonallergic rhinitis 03/07/201608/2018 Hypersomnia 03/17/2014 09/29/2015 Overview: Dr. Worrell Primary generalized (osteo)arthritis 07/31/2012 09/14/2018 Overview: Affecting hands and feet Pain in limb 05/14/2012 09/14/2012 Cervical spondylosis with radiculopathy 05/14/20 12 09/29/2015 YAMILETH (obstructive sleep apnea) 04/17/2012 Overview: Per Dr Worrell. Sleep study 04/09/12. Mild. Not on CPAP. Special screening for malignant neoplasms, colon 03/09/2012 09/14/2012 Diverticulosis of colon (without mention of hemo rrhage) 03/09/2012 09/14/2012 Diaphragmatic hernia without mention of obstruction or gangrene 03/09/2012 09/14/2012 B12 deficiency 12/16/2011 09/14/2018 Vertigo 12/28/2010 09/14/2012 Skin infection 01/07/2010 09/14/2012 Derangement of meniscus, not elsewhere classifie d 03/25/2008 09/14/2012 Sprain of neck 08/10/2007 06/24/2008 Sprain and strain of unspeci fied site of shoulder and upper arm 08/10/2007 06/24/2008 Sprain and strain of unspecified site of knee an d leg 08/10/2007 09/14/2012 Contusion of unspecified site 08/10/2007 Impaired fasting glucose 016 Obesity, unspecified 02/07/2018 documented as of this encounter (statuses as of 06/03/2022) [facility] History of Past illness Narrative* Problem Noted Date Resolved Date Adjustment disorder with depressed mood 10/23/19 20 10/01/2020 Obesity, Class I, BMI 30-34.9 02/07/2018 Dry mouth 08/17/2016 09/14/2018 Chronic nonallergic rhinitis 03/07/201608/2018 Hypersomnia 03/17/2014 09/29/2015 Overview: Dr. Worrell Primary generalized (osteo)arthritis 07/31/2012 09/14/2018 Overview: Affecting hands and feet Pain in limb 05/14/2012 09/14/2012 Cervical spondylosis with radiculopathy 05/14/20 12 09/29/2015 YAMILETH (obstructive sleep apnea) 04/17/2012 Overview: Per Dr Worrell. Sleep study 04/09/12. Mild. Not on CPAP. Special screening for malignant neoplasms, colon 03/09/2012 09/14/2012 Diverticulosis of colon (without mention of hemo rrhage) 03/09/2012 09/14/2012 Diaphragmatic hernia without mention of obstruction or gangrene 03/09/2012 09/14/2012 B12 deficiency 12/16/2011 09/14/2018 Vertigo 12/28/2010 09/14/2012 Skin infection 01/07/2010 09/14/2012 Derangement of meniscus, not elsewhere classifie d 03/25/2008 09/14/2012 Sprain of neck 08/10/2007 06/24/2008 Sprain and strain of unspeci fied site of shoulder and upper arm 08/10/2007 06/24/2008 Sprain and strain of unspecified site of knee an d leg 08/10/2007 09/14/2012 Contusion of unspecified site 08/10/2007 Impaired fasting glucose 016 Obesity, unspecified 02/07/2018 documented as of this encounter (statuses as of 06/10/2022) [facility] History of Past illness Narrative* Problem Noted Date Resolved Date Adjustment disorder with depressed mood 10/23/19 20 10/01/2020 Obesity, Class I, BMI 30-34.9 02/07/2018 Dry mouth 08/17/2016 09/14/2018 Chronic nonallergic rhinitis 03/07/201608/2018 Hypersomnia 03/17/2014 09/29/2015 Overview: Dr. Worrell Primary generalized (osteo)arthritis 07/31/2012 09/14/2018 Overview: Affecting hands and feet Pain in limb 05/14/2012 09/14/2012 Cervical spondylosis with radiculopathy 05/14/20 12 09/29/2015 YAMILETH (obstructive sleep apnea) 04/17/2012 Overview: Per Dr Worrell. Sleep study 04/09/12. Mild. Not on CPAP. Special screening for malignant neoplasms, colon 03/09/2012 09/14/2012 Diverticulosis of colon (without mention of hemo rrhage) 03/09/2012 09/14/2012 Diaphragmatic hernia without mention of obstruction or gangrene 03/09/2012 09/14/2012 B12 deficiency 12/16/2011 09/14/2018 Vertigo 12/28/2010 09/14/2012 Skin infection 01/07/2010 09/14/2012 Derangement of meniscus, not elsewhere classifie d 03/25/2008 09/14/2012 Sprain of neck 08/10/2007 06/24/2008 Sprain and strain of unspeci fied site of shoulder and upper arm 08/10/2007 06/24/2008 Sprain and strain of unspecified site of knee an d leg 08/10/2007 09/14/2012 Contusion of unspecified site 08/10/2007 Impaired fasting glucose 016 Obesity, unspecified 02/07/2018 documented as of this encounter (statuses as of 06/16/2022) [facility]2020 History of Past illness Narrative* Problem Noted Date Resolved Date Adjustment disorder with depressed mood 10/23/19 20 10/01/2020 Obesity, Class I, BMI 30-34.9 02/07/2018 Dry mouth 08/17/2016 09/14/2018 Chronic nonallergic rhinitis 03/07/201608/2018 Hypersomnia 03/17/2014 09/29/2015 Overview: Dr. Worrell Primary generalized (osteo)arthritis 07/31/2012 09/14/2018 Overview: Affecting hands and feet Pain in limb 05/14/2012 09/14/2012 Cervical spondylosis with radiculopathy 05/14/2009/29/2015 YAMILETH (obstructive sleep apnea) 04/17/2012 Overview: Per Dr Worrell. Sleep study 04/09/12. Mild. Not on CPAP. Special screening for malignant neoplasms, colon 03/09/2012 09/14/2012 Diverticulosis of colon (without mention of hemo rrhage) 03/09/2012 09/14/2012 Diaphragmatic hernia without mention of obstruction or gangrene 03/09/2012 09/14/2012 B12 deficiency 12/16/2011 09/14/2018 Vertigo 12/28/2010 09/14/2012 Skin infection 01/07/2010 09/14/2012 Derangement of meniscus, not elsewhere classifie d 03/25/2008 09/14/2012 Sprain of neck 08/10/2007 06/24/2008 Sprain and strain of unspeci fied site of shoulder and upper arm 08/10/2007 06/24/2008 Sprain and strain of unspecified site of knee an d leg 08/10/2007 09/14/2012 Contusion of unspecified site 08/10/2007 Impaired fasting glucose 016 Obesity, unspecified 02/07/2018 documented as of this encounter (statuses as of 06/17/2022) [facility] History of Past illness Narrative* Problem Noted Date Resolved Date Adjustment disorder with depressed mood 10/23/19 20 10/01/2020 Obesity, Class I, BMI 30-34.9 02/07/2018 Dry mouth 08/17/2016 09/14/2018 Chronic nonallergic rhinitis 03/07/201608/2018 Hypersomnia 03/17/2014 09/29/2015 Overview: Dr. Worrell Primary generalized (osteo)arthritis 07/31/2012 09/14/2018 Overview: Affecting hands and feet Pain in limb 05/14/2012 09/14/2012 Cervical spondylosis with radiculopathy 05/14/20 12 09/29/2015 YAMILETH (obstructive sleep apnea) 04/17/2012 Overview: Per Dr Worrell. Sleep study 04/09/12. Mild. Not on CPAP. Special screening for malignant neoplasms, colon 03/09/2012 09/14/2012 Diverticulosis of colon (without mention of hemo rrhage) 03/09/2012 09/14/2012 Diaphragmatic hernia without mention of obstruction or gangrene 03/09/2012 09/14/2012 B12 deficiency 12/16/2011 09/14/2018 Vertigo 12/28/2010 09/14/2012 Skin infection 01/07/2010 09/14/2012 Derangement of meniscus, not elsewhere classifie d 03/25/2008 09/14/2012 Sprain of neck 08/10/2007 06/24/2008 Sprain and strain of unspeci fied site of shoulder and upper arm 08/10/2007 06/24/2008 Sprain and strain of unspecified site of knee an d leg 08/10/2007 09/14/2012 Contusion of unspecified site 08/10/2007 Impaired fasting glucose 016 Obesity, unspecified 02/07/2018 documented as of this encounter (statuses as of 06/28/2022) [facility] History of Past illness Narrative* Problem Noted Date Resolved Date Adjustment disorder with depressed mood 10/23/19 20 10/01/2020 Obesity, Class I, BMI 30-34.9 02/07/2018 Dry mouth 08/17/2016 09/14/2018 Chronic nonallergic rhinitis 03/07/201608/2018 Hypersomnia 03/17/2014 09/29/2015 Overview: Dr. Worrell Primary generalized (osteo)arthritis 07/31/2012 09/14/2018 Overview: Affecting hands and feet Pain in limb 05/14/2012 09/14/2012 Cervical spondylosis with radiculopathy 05/14/20 12 09/29/2015 YAMILETH (obstructive sleep apnea) 04/17/2012 Overview: Per Dr Worrell. Sleep study 04/09/12. Mild. Not on CPAP. Special screening for malignant neoplasms, colon 03/09/2012 09/14/2012 Diverticulosis of colon (without mention of hemo rrhage) 03/09/2012 09/14/2012 Diaphragmatic hernia without mention of obstruction or gangrene 03/09/2012 09/14/2012 B12 deficiency 12/16/2011 09/14/2018 Vertigo 12/28/2010 09/14/2012 Skin infection 01/07/2010 09/14/2012 Derangement of meniscus, not elsewhere classifie d 03/25/2008 09/14/2012 Sprain of neck 08/10/2007 06/24/2008 Sprain and strain of unspeci fied site of shoulder and upper arm 08/10/2007 06/24/2008 Sprain and strain of unspecified site of knee an d leg 08/10/2007 09/14/2012 Contusion of unspecified site 08/10/2007 Impaired fasting glucose 016 Obesity, unspecified 02/07/2018 documented as of this encounter (statuses as of 06/30/2022) [facility] History of Past illness Narrative* Problem Noted Date Resolved Date Adjustment disorder with depressed mood 10/23/19 20 10/01/2020 Obesity, Class I, BMI 30-34.9 02/07/2018 Dry mouth 08/17/2016 09/14/2018 Chronic nonallergic rhinitis 03/07/201608/2018 Hypersomnia 03/17/2014 09/29/2015 Overview: Dr. Worrell Primary generalized (osteo)arthritis 07/31/2012 09/14/2018 Overview: Affecting hands and feet Pain in limb 05/14/2012 09/14/2012 Cervical spondylosis with radiculopathy 05/14/20 12 09/29/2015 YAMILETH (obstructive sleep apnea) 04/17/2012 Overview: Per Dr Worrell. Sleep study 04/09/12. Mild. Not on CPAP. Special screening for malignant neoplasms, colon 03/09/2012 09/14/2012 Diverticulosis of colon (without mention of hemo rrhage) 03/09/2012 09/14/2012 Diaphragmatic hernia without mention of obstruction or gangrene 03/09/2012 09/14/2012 B12 deficiency 12/16/2011 09/14/2018 Vertigo 12/28/2010 09/14/2012 Skin infection 01/07/2010 09/14/2012 Derangement of meniscus, not elsewhere classifie d 03/25/2008 09/14/2012 Sprain of neck 08/10/2007 06/24/2008 Sprain and strain of unspeci fied site of shoulder and upper arm 08/10/2007 06/24/2008 Sprain and strain of unspecified site of knee an d leg 08/10/2007 09/14/2012 Contusion of unspecified site 08/10/2007 Impaired fasting glucose 016 Obesity, unspecified 02/07/2018 documented as of this encounter (statuses as of 07/05/2022) [facility] History of Past illness Narrative* Problem Noted Date Resolved Date Adjustment disorder with depressed mood 10/23/19 20 10/01/2020 Obesity, Class I, BMI 30-34.9 02/07/2018 Dry mouth 08/17/2016 09/14/2018 Chronic nonallergic rhinitis 03/07/201608/2018 Hypersomnia 03/17/2014 09/29/2015 Overview: Dr. Worrell Primary generalized (osteo)arthritis 07/31/2012 09/14/2018 Overview: Affecting hands and feet Pain in limb 05/14/2012 09/14/2012 Cervical spondylosis with radiculopathy 05/14/20 12 09/29/2015 YAMILETH (obstructive sleep apnea) 04/17/2012 Overview: Per Dr Worrell. Sleep study 04/09/12. Mild. Not on CPAP. Special screening for malignant neoplasms, colon 03/09/2012 09/14/2012 Diverticulosis of colon (without mention of hemo rrhage) 03/09/2012 09/14/2012 Diaphragmatic hernia without mention of obstruction or gangrene 03/09/2012 09/14/2012 B12 deficiency 12/16/2011 09/14/2018 Vertigo 12/28/2010 09/14/2012 Skin infection 01/07/2010 09/14/2012 Derangement of meniscus, not elsewhere classifie d 03/25/2008 09/14/2012 Sprain of neck 08/10/2007 06/24/2008 Sprain and strain of unspeci fied site of shoulder and upper arm 08/10/2007 06/24/2008 Sprain and strain of unspecified site of knee an d leg 08/10/2007 09/14/2012 Contusion of unspecified site 08/10/2007 Impaired fasting glucose 016 Obesity, unspecified 02/07/2018 documented as of this encounter (statuses as of 07/14/2022) [facility] History of Past illness Narrative* Problem Noted Date Resolved Date Adjustment disorder with depressed mood 10/23/19 20 10/01/2020 Obesity, Class I, BMI 30-34.9 02/07/2018 Dry mouth 08/17/2016 09/14/2018 Chronic nonallergic rhinitis 03/07/201608/2018 Hypersomnia 03/17/2014 09/29/2015 Overview: Dr. Worrell Primary generalized (osteo)arthritis 07/31/2012 09/14/2018 Overview: Affecting hands and feet Pain in limb 05/14/2012 09/14/2012 Cervical spondylosis with radiculopathy 05/14/20 12 09/29/2015 YAMILETH (obstructive sleep apnea) 04/17/2012 Overview: Per Dr Worrell. Sleep study 04/09/12. Mild. Not on CPAP. Special screening for malignant neoplasms, colon 03/09/2012 09/14/2012 Diverticulosis of colon (without mention of hemo rrhage) 03/09/2012 09/14/2012 Diaphragmatic hernia without mention of obstruction or gangrene 03/09/2012 09/14/2012 B12 deficiency 12/16/2011 09/14/2018 Vertigo 12/28/2010 09/14/2012 Skin infection 01/07/2010 09/14/2012 Derangement of meniscus, not elsewhere classifie d 03/25/2008 09/14/2012 Sprain of neck 08/10/2007 06/24/2008 Sprain and strain of unspeci fied site of shoulder and upper arm 08/10/2007 06/24/2008 Sprain and strain of unspecified site of knee an d leg 08/10/2007 09/14/2012 Contusion of unspecified site 08/10/2007 Impaired fasting glucose 016 Obesity, unspecified 02/07/2018 documented as of this encounter (statuses as of 07/18/2022) [facility] History of Past illness Narrative* Problem Noted Date Resolved Date Adjustment disorder with depressed mood 10/23/19 20 10/01/2020 Obesity, Class I, BMI 30-34.9 02/07/2018 Dry mouth 08/17/2016 09/14/2018 Chronic nonallergic rhinitis 03/07/201608/2018 Hypersomnia 03/17/2014 09/29/2015 Overview: Dr. Worrell Primary generalized (osteo)arthritis 07/31/2012 09/14/2018 Overview: Affecting hands and feet Pain in limb 05/14/2012 09/14/2012 Cervical spondylosis with radiculopathy 05/14/20 12 09/29/2015 YAMILETH (obstructive sleep apnea) 04/17/2012 Overview: Per Dr Worrell. Sleep study 04/09/12. Mild. Not on CPAP. Special screening for malignant neoplasms, colon 03/09/2012 09/14/2012 Diverticulosis of colon (without mention of hemo rrhage) 03/09/2012 09/14/2012 Diaphragmatic hernia without mention of obstruction or gangrene 03/09/2012 09/14/2012 B12 deficiency 12/16/2011 09/14/2018 Vertigo 12/28/2010 09/14/2012 Skin infection 01/07/2010 09/14/2012 Derangement of meniscus, not elsewhere classifie d 03/25/2008 09/14/2012 Sprain of neck 08/10/2007 06/24/2008 Sprain and strain of unspeci fied site of shoulder and upper arm 08/10/2007 06/24/2008 Sprain and strain of unspecified site of knee an d leg 08/10/2007 09/14/2012 Contusion of unspecified site 08/10/2007 Impaired fasting glucose 016 Obesity, unspecified 02/07/2018 documented as of this encounter (statuses as of 08/01/2022) [facility] History of Past illness Narrative* Problem Noted Date Resolved Date Adjustment disorder with depressed mood 10/23/19 20 10/01/2020 Obesity, Class I, BMI 30-34.9 02/07/2018 Dry mouth 08/17/2016 09/14/2018 Chronic nonallergic rhinitis 03/07/201608/2018 Hypersomnia 03/17/2014 09/29/2015 Overview: Dr. Worrell Primary generalized (osteo)arthritis 07/31/2012 09/14/2018 Overview: Affecting hands and feet Pain in limb 05/14/2012 09/14/2012 Cervical spondylosis with radiculopathy 05/14/20 12 09/29/2015 YAMILETH (obstructive sleep apnea) 04/17/2012 Overview: Per Dr Worrell. Sleep study 04/09/12. Mild. Not on CPAP. Special screening for malignant neoplasms, colon 03/09/2012 09/14/2012 Diverticulosis of colon (without mention of hemo rrhage) 03/09/2012 09/14/2012 Diaphragmatic hernia without mention of obstruction or gangrene 03/09/2012 09/14/2012 B12 deficiency 12/16/2011 09/14/2018 Vertigo 12/28/2010 09/14/2012 Skin infection 01/07/2010 09/14/2012 Derangement of meniscus, not elsewhere classifie d 03/25/2008 09/14/2012 Sprain of neck 08/10/2007 06/24/2008 Sprain and strain of unspeci fied site of shoulder and upper arm 08/10/2007 06/24/2008 Sprain and strain of unspecified site of knee an d leg 08/10/2007 09/14/2012 Contusion of unspecified site 08/10/2007 Impaired fasting glucose 016 Obesity, unspecified 02/07/2018 documented as of this encounter (statuses as of 09/20/2022) [facility] History of Past illness Narrative* Problem Noted Date Resolved Date Adjustment disorder with depressed mood 10/23/19 20 10/01/2020 Obesity, Class I, BMI 30-34.9 02/07/2018 Dry mouth 08/17/2016 09/14/2018 Chronic nonallergic rhinitis 03/07/201608/2018 Hypersomnia 03/17/2014 09/29/2015 Overview: Dr. Worrell Primary generalized (osteo)arthritis 07/31/2012 09/14/2018 Overview: Affecting hands and feet Pain in limb 05/14/2012 09/14/2012 Cervical spondylosis with radiculopathy 05/14/20 12 09/29/2015 YAMILETH (obstructive sleep apnea) 04/17/2012 Overview: Per Dr Worrell. Sleep study 04/09/12. Mild. Not on CPAP. Special screening for malignant neoplasms, colon 03/09/2012 09/14/2012 Diverticulosis of colon (without mention of hemo rrhage) 03/09/2012 09/14/2012 Diaphragmatic hernia without mention of obstruction or gangrene 03/09/2012 09/14/2012 B12 deficiency 12/16/2011 09/14/2018 Vertigo 12/28/2010 09/14/2012 Skin infection 01/07/2010 09/14/2012 Derangement of meniscus, not elsewhere classifie d 03/25/2008 09/14/2012 Sprain of neck 08/10/2007 06/24/2008 Sprain and strain of unspeci fied site of shoulder and upper arm 08/10/2007 06/24/2008 Sprain and strain of unspecified site of knee an d leg 08/10/2007 09/14/2012 Contusion of unspecified site 08/10/2007 Impaired fasting glucose 016 Obesity, unspecified 02/07/2018 documented as of this encounter (statuses as of 09/27/2022) [facility] [facility]03-[facility]-2020 History of Past illness Narrative* Problem Noted Date Resolved Date Adjustment disorder with depressed mood 10/23/1910/01/2020 Obesity, Class I, BMI 30-34.9 02/07/2018 Dry mouth 08/17/2016 09/14/2018 Chronic nonallergic rhinitis 03/07/201608/2018 Hypersomnia 03/17/2014 09/29/2015 Overview: Dr. Worrell Primary generalized (osteo)arthritis 07/31/2012 09/14/2018 Overview: Affecting hands and feet Pain in limb 05/14/2012 09/14/2012 Cervical spondylosis with radiculopathy 05/14/20 12 09/29/2015 YAMILETH (obstructive sleep apnea) 04/17/2012 Overview: Per Dr Worrell. Sleep study 04/09/12. Mild. Not on CPAP. Special screening for malignant neoplasms, colon 03/09/2012 09/14/2012 Diverticulosis of colon (without mention of hemo rrhage) 03/09/2012 09/14/2012 Diaphragmatic hernia without mention of obstruction or gangrene 03/09/2012 09/14/2012 B12 deficiency 12/16/2011 09/14/2018 Vertigo 12/28/2010 09/14/2012 Skin infection 01/07/2010 09/14/2012 Derangement of meniscus, not elsewhere classifie d 03/25/2008 09/14/2012 Sprain of neck 08/10/2007 06/24/2008 Sprain and strain of unspeci fied site of shoulder and upper arm 08/10/2007 06/24/2008 Sprain and strain of unspecified site of knee an d leg 08/10/2007 09/14/2012 Contusion of unspecified site 08/10/2007 Impaired fasting glucose 016 Obesity, unspecified 02/07/2018 documented as of this encounter (statuses as of 11/04/2022) [facility]03-[facility]2020 History of Past illness Narrative* Problem Noted Date Resolved Date Adjustment disorder with depressed mood 10/23/19 20 10/01/2020 Obesity, Class I, BMI 30-34.9 02/07/2018 Dry mouth 08/17/2016 09/14/2018 Chronic nonallergic rhinitis 03/07/201608/2018 Hypersomnia 03/17/2014 09/29/2015 Overview: Dr. Worrell Primary generalized (osteo)arthritis 07/31/2012 09/14/2018 Overview: Affecting hands and feet Pain in limb 05/14/2012 09/14/2012 Cervical spondylosis with radiculopathy 05/14/20 12 09/29/2015 YAMILETH (obstructive sleep apnea) 04/17/2012 Overview: Per Dr Worrell. Sleep study 04/09/12. Mild. Not on CPAP. Special screening for malignant neoplasms, colon 03/09/2012 09/14/2012 Diverticulosis of colon (without mention of hemo rrhage) 03/09/2012 09/14/2012 Diaphragmatic hernia without mention of obstruction or gangrene 03/09/2012 09/14/2012 B12 deficiency 12/16/2011 09/14/2018 Vertigo 12/28/2010 09/14/2012 Skin infection 01/07/2010 09/14/2012 Derangement of meniscus, not elsewhere classifie d 03/25/2008 09/14/2012 Sprain of neck 08/10/2007 06/24/2008 Sprain and strain of unspeci fied site of shoulder and upper arm 08/10/2007 06/24/2008 Sprain and strain of unspecified site of knee an d leg 08/10/2007 09/14/2012 Contusion of unspecified site 08/10/2007 Impaired fasting glucose 016 Obesity, unspecified 02/07/2018 documented as of this encounter (statuses as of 11/07/2022) [facility] History of Past illness Narrative* Problem Noted Date Resolved Date Adjustment disorder with depressed mood 10/23/19 20 10/01/2020 Obesity, Class I, BMI 30-34.9 02/07/2018 Dry mouth 08/17/2016 09/14/2018 Chronic nonallergic rhinitis 03/07/201608/2018 Hypersomnia 03/17/2014 09/29/2015 Overview: Dr. Worrell Primary generalized (osteo)arthritis 07/31/2012 09/14/2018 Overview: Affecting hands and feet Pain in limb 05/14/2012 09/14/2012 Cervical spondylosis with radiculopathy 05/14/20 12 09/29/2015 YAMILETH (obstructive sleep apnea) 04/17/2012 Overview: Per Dr Worrell. Sleep study 04/09/12. Mild. Not on CPAP. Special screening for malignant neoplasms, colon 03/09/2012 09/14/2012 Diverticulosis of colon (without mention of hemo rrhage) 03/09/2012 09/14/2012 Diaphragmatic hernia without mention of obstruction or gangrene 03/09/2012 09/14/2012 B12 deficiency 12/16/2011 09/14/2018 Vertigo 12/28/2010 09/14/2012 Skin infection 01/07/2010 09/14/2012 Derangement of meniscus, not elsewhere classifie d 03/25/2008 09/14/2012 Sprain of neck 08/10/2007 06/24/2008 Sprain and strain of unspeci fied site of shoulder and upper arm 08/10/2007 06/24/2008 Sprain and strain of unspecified site of knee an d leg 08/10/2007 09/14/2012 Contusion of unspecified site 08/10/2007 Impaired fasting glucose 016 Obesity, unspecified 02/07/2018 documented as of this encounter (statuses as of 11/11/2022) [facility] History of Past illness Narrative* Problem Noted Date Resolved Date Adjustment disorder with depressed mood 10/23/19 20 10/01/2020 Obesity, Class I, BMI 30-34.9 02/07/2018 Dry mouth 08/17/2016 09/14/2018 Chronic nonallergic rhinitis 03/07/201608/2018 Hypersomnia 03/17/2014 09/29/2015 Overview: Dr. Worrell Primary generalized (osteo)arthritis 07/31/2012 09/14/2018 Overview: Affecting hands and feet Pain in limb 05/14/2012 09/14/2012 Cervical spondylosis with radiculopathy 05/14/20 12 09/29/2015 YAMILETH (obstructive sleep apnea) 04/17/2012 Overview: Per Dr Worrell. Sleep study 04/09/12. Mild. Not on CPAP. Special screening for malignant neoplasms, colon 03/09/2012 09/14/2012 Diverticulosis of colon (without mention of hemo rrhage) 03/09/2012 09/14/2012 Diaphragmatic hernia without mention of obstruction or gangrene 03/09/2012 09/14/2012 B12 deficiency 12/16/2011 09/14/2018 Vertigo 12/28/2010 09/14/2012 Skin infection 01/07/2010 09/14/2012 Derangement of meniscus, not elsewhere classifie d 03/25/2008 09/14/2012 Sprain of neck 08/10/2007 06/24/2008 Sprain and strain of unspeci fied site of shoulder and upper arm 08/10/2007 06/24/2008 Sprain and strain of unspecified site of knee an d leg 08/10/2007 09/14/2012 Contusion of unspecified site 08/10/2007 Impaired fasting glucose 016 Obesity, unspecified 02/07/2018 documented as of this encounter (statuses as of 11/16/2022) [facility] History of Past illness Narrative* Problem Noted Date Resolved Date Adjustment disorder with depressed mood 10/23/19 20 10/01/2020 Obesity, Class I, BMI 30-34.9 02/07/2018 Dry mouth 08/17/2016 09/14/2018 Chronic nonallergic rhinitis 03/07/201608/2018 Hypersomnia 03/17/2014 09/29/2015 Overview: Dr. Worrell Primary generalized (osteo)arthritis 07/31/2012 09/14/2018 Overview: Affecting hands and feet Pain in limb 05/14/2012 09/14/2012 Cervical spondylosis with radiculopathy 05/14/2009/29/2015 YAMILETH (obstructive sleep apnea) 04/17/2012 Overview: Per Dr Worrell. Sleep study 04/09/12. Mild. Not on CPAP. Special screening for malignant neoplasms, colon 03/09/2012 09/14/2012 Diverticulosis of colon (without mention of hemo rrhage) 03/09/2012 09/14/2012 Diaphragmatic hernia without mention of obstruction or gangrene 03/09/2012 09/14/2012 B12 deficiency 12/16/2011 09/14/2018 Vertigo 12/28/2010 09/14/2012 Skin infection 01/07/2010 09/14/2012 Derangement of meniscus, not elsewhere classifie d 03/25/2008 09/14/2012 Sprain of neck 08/10/2007 06/24/2008 Sprain and strain of unspeci fied site of shoulder and upper arm 08/10/2007 06/24/2008 Sprain and strain of unspecified site of knee an d leg 08/10/2007 09/14/2012 Contusion of unspecified site 08/10/2007 Impaired fasting glucose 016 Obesity, unspecified 02/07/2018 documented as of this encounter (statuses as of 02/14/2023) [facility] History of Past illness Narrative* Problem Noted Date Resolved Date Adjustment disorder with depressed mood 10/23/19 20 10/01/2020 Obesity, Class I, BMI 30-34.9 02/07/2018 Dry mouth 08/17/2016 09/14/2018 Chronic nonallergic rhinitis 03/07/201608/2018 Hypersomnia 03/17/2014 09/29/2015 Overview: Dr. Worrell Primary generalized (osteo)arthritis 07/31/2012 09/14/2018 Overview: Affecting hands and feet Pain in limb 05/14/2012 09/14/2012 Cervical spondylosis with radiculopathy 05/14/20 12 09/29/2015 YAMILETH (obstructive sleep apnea) 04/17/2012 Overview: Per Dr Worrell. Sleep study 04/09/12. Mild. Not on CPAP. Special screening for malignant neoplasms, colon 03/09/2012 09/14/2012 Diverticulosis of colon (without mention of hemo rrhage) 03/09/2012 09/14/2012 Diaphragmatic hernia without mention of obstruction or gangrene 03/09/2012 09/14/2012 B12 deficiency 12/16/2011 09/14/2018 Vertigo 12/28/2010 09/14/2012 Skin infection 01/07/2010 09/14/2012 Derangement of meniscus, not elsewhere classifie d 03/25/2008 09/14/2012 Sprain of neck 08/10/2007 06/24/2008 Sprain and strain of unspeci fied site of shoulder and upper arm 08/10/2007 06/24/2008 Sprain and strain of unspecified site of knee an d leg 08/10/2007 09/14/2012 Contusion of unspecified site 08/10/2007 Impaired fasting glucose 016 Obesity, unspecified 02/07/2018 documented as of this encounter (statuses as of 02/17/2023) [facility] History of Past illness Narrative* Problem Noted Date Diagnosed Date Resolved Date Adjustment disorder with depressed mood 10/23/2019 10/01/2020 Obesity, Class I, BMI 30-34.9 02/07/2018 09/19/2019 Dry mouth 08/17/2016 09/14/2018 Chronic nonallergic rhinitis 03/07/2016 09/14/2018 Hypersomnia 03/17/2014 09/29/2015 Overview: Dr. Worrell Primary generalized (osteo)arthritis 07/31/2012 09/14/2018 Overview: Affecting hands and feet Pain in limb 05/14/2012 09/14/2012 Cervical spondylosis with radiculopathy 05/14/2012 09/29/2015 YAMILETH (obstructive sleep apnea) 04/17/2012 03/17/2014 Overview: Per Dr Worrell. Sleep study 04/09/12. Mild. Not on CPAP. Special screening for malign ant neoplasms, colon 03/09/2012 09/14/2012 Diverticulosis of colon (wit hout mention of hemorrhage) 03/09/2012 09/14/2012 Diaphragmatic hernia without mention of obstruction or gangrene 03/09/2012 09/14/2012 B12 deficiency 12/16/2011 09/14/2018 Vertigo 12/28/2010 09/14/2012 Skin infection 01/07/2010 09/14/2012 Derangement of meniscus, not elsewhere classified 03/25/2008 09/14/2012 Sprain of neck 08/10/2007 06/24/2008 Sprain and strain of unspeci fied site of shoulder and upper arm 08/10/2007 06/24/2008 Sprain and strain of unspeci fied site of knee and leg 08/10/2007 09/14/2012 Contusion of unspecified site 08/10/2007 06/24/2008 Impaired fasting glucose Obesity, unspecified 018 documented as of this encounter (statuses as of 04/19/2023) [facility]03[facility]2020 History of Past illness Narrative* Problem Noted Date Diagnosed Date Resolved Date Adjustment disorder with depressed mood 10/23/2019 10/01/2020 Obesity, Class I, BMI 30-34.9 02/07/2018 09/19/2019 Dry mouth 08/17/2016 09/14/2018 Chronic nonallergic rhinitis 03/07/2016 09/14/2018 Hypersomnia 03/17/2014 09/29/2015 Overview: Dr. Worrell Primary generalized (osteo)arthritis 07/31/2012 09/14/2018 Overview: Affecting hands and feet Pain in limb 05/14/2012 09/14/2012 Cervical spondylosis with radiculopathy 05/14/2012 09/29/2015 YAMILETH (obstructive sleep apnea) 04/17/2012 03/17/2014 Overview: Per Dr Worrell. Sleep study 04/09/12. Mild. Not on CPAP. Special screening for malign ant neoplasms, colon 03/09/2012 09/14/2012 Diverticulosis of colon (wit hout mention of hemorrhage) 03/09/2012 09/14/2012 Diaphragmatic hernia without mention of obstruction or gangrene 03/09/2012 09/14/2012 B12 deficiency 12/16/2011 09/14/2018 Vertigo 12/28/2010 09/14/2012 Skin infection 01/07/2010 09/14/2012 Derangement of meniscus, not elsewhere classified 03/25/2008 09/14/2012 Sprain of neck 08/10/2007 06/24/2008 Sprain and strain of unspeci fied site of shoulder and upper arm 08/10/2007 06/24/2008 Sprain and strain of unspeci fied site of knee and leg 08/10/2007 09/14/2012 Contusion of unspecified site 08/10/2007 06/24/2008 Impaired fasting glucose Obesity, unspecified 018 documented as of this encounter (statuses as of 05/03/2023) [facility]03[facility]2020 History of Past illness Narrative* Problem Noted Date Diagnosed Date Resolved Date Adjustment disorder with depressed mood 10/23/2019 10/01/2020 Obesity, Class I, BMI 30-34.9 02/07/2018 09/19/2019 Dry mouth 08/17/2016 09/14/2018 Chronic nonallergic rhinitis 03/07/2016 09/14/2018 Hypersomnia 03/17/2014 09/29/2015 Overview: Dr. Worrell Primary generalized (osteo)arthritis 07/31/2012 09/14/2018 Overview: Affecting hands and feet Pain in limb 05/14/2012 09/14/2012 Cervical spondylosis with radiculopathy 05/14/2012 09/29/2015 YAMILETH (obstructive sleep apnea) 04/17/2012 03/17/2014 Overview: Per Dr Worrell. Sleep study 04/09/12. Mild. Not on CPAP. Special screening for malign ant neoplasms, colon 03/09/2012 09/14/2012 Diverticulosis of colon (hair portillo mention of hemorrhage) 03/09/2012 09/14/2012 Diaphragmatic hernia without mention of obstruction or gangrene 03/09/2012 09/14/2012 B12 deficiency 12/16/2011 09/14/2018 Vertigo 12/28/2010 09/14/2012 Skin infection 01/07/2010 09/14/2012 Derangement of meniscus, not elsewhere classified 03/25/2008 09/14/2012 Sprain of neck 08/10/2007 06/24/2008 Sprain and strain of unspeci fied site of shoulder and upper arm 08/10/2007 06/24/2008 Sprain and strain of unspeci fied site of knee and leg 08/10/2007 09/14/2012 Contusion of unspecified site 08/10/2007 06/24/2008 Impaired fasting glucose Obesity, unspecified 018 documented as of this encounter (statuses as of 05/09/2023) [facility] Diagnosis Medicare annual wellness visit, subsequent- Primary Routine general medical examination at a health care facility Tremor Abnormal involuntary movements Unsteady gait Abnormality of gait Adjustment disorder with mixed anxiety and depressed mood Chronic bilateral low back pain with bilateral sciatica Breast pain Mastodynia Encounter for screening mammogram for malignant neoplasm of breast Other [facility] Encounter for screening mammogram for malignant neoplasm of breast Other [facility] Diagnosis Abnormal mammogram- Primary Abnormal mammogram, unspecified [facility] Diagnosis Abnormal mammogram Abnormal mammogram, unspecified [facility] Diagnosis Microcalcifications of the breast- Primary Mammographic microcalcification 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) [facility] Diagnosis Microcalcifications of the breast Mammographic microcalcification [facility]* Diagnosis Onset Date Resolution Status Palpitations acute 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 pectoris chronic Essential (primary) hypertension chronic Hyperlipidemia chronic Takotsubo cardiomyopathy [facility] Work Phone: Evaluation note* Diagnosis Takotsubo cardiomyopathy Takotsubo syndrome [facility] Takotsubo cardiomyopathy- Primary Takotsubo syndrome Adjustment disorder with mixed anxiety and depressed mood Chronic bilateral low back pain with bilateral sciatica Tremor Abnormal involuntary movements documented in this encounter [facility] note* Diagnosis Chronic low back pain, unspecified back pain laterality, unspecified whether sciatica present- Primary Tremor Abnormal involuntary movements Unsteady gait Abnormality of gait Parkinsonism, unspecified Parkinsonism type (HCC) documented in this encounter [facility] note* Diagnosis Urge incontinence documented in this encounter [facility] note* Diagnosis Tremor Abnormal involuntary movements Unsteady gait Abnormality of gait Parkinsonism, unspecified Parkinsonism type (HCC) documented in this encounter [facility] note* Diagnosis Unsteady gait- Primary Abnormality of gait Parkinsonism, unspecified Parkinsonism type (HCC) documented in this encounter [facility] note* Diagnosis Neck pain- Primary Cervicalgia Chronic low back pain, unspecified back pain laterality, unspecified whether sciatica present Thoracic spine pain Pain in thoracic spine documented in this encounter [facility] note* Diagnosis Chronic low back pain, unspecified back pain laterality, unspecified whether sciatica present Neck pain Cervicalgia Thoracic spine pain Pain in thoracic spine documented in this encounter [facility] note* Diagnosis URI, acute- Primary Acute upper respiratory infections of unspecified site Exposure to confirmed case of COVID-19 documented in this encounter [facility] note* Diagnosis COVID-19 virus infection- Primary documented in this encounter [facility] note* Diagnosis Chronic low back pain, unspecified back pain laterality, unspecified whether sciatica present Neck pain Cervicalgia Thoracic spine pain Pain in thoracic spine Pain in thoracic spine documented in this encounter [facility] note* Diagnosis Neck pain- Primary Cervicalgia Chronic bilateral low back pain without sciatica Pain in thoracic spine documented in this encounter [facility] note* Diagnosis Neck pain- Primary Cervicalgia Chronic bilateral low back pain without sciatica Pain in thoracic spine documented in this encounter [facility] note* Diagnosis Neck pain- Primary Cervicalgia Chronic bilateral low back pain without sciatica Pain in thoracic spine documented in this encounter [facility] note* Diagnosis Neck pain- Primary Cervicalgia Chronic bilateral low back pain without sciatica Pain in thoracic spine documented in this encounter [facility] note* Diagnosis Neck pain- Primary Cervicalgia Chronic bilateral low back pain without sciatica Pain in thoracic spine documented in this encounter [facility] note* Diagnosis Neck pain- Primary Cervicalgia Chronic bilateral low back pain without sciatica Pain in thoracic spine [facility] Diagnosis Vitamin D deficiency Unspecified vitamin D deficiency [facility]* Diagnosis Parkinsonism, unspecified Parkinsonism type (HCC)- Primary Unsteady gait Abnormality of gait [facility] Diagnosis Onset Date Resolution Status Essential (primary) hypertension chronic Takotsubo cardiomyopathy [facility] Work Phone: Evaluation note* Diagnosis Essential hypertension, benign documented in this encounter [facility] note* Diagnosis Medicare annual wellness visit, subsequent- Primary Routine general medical examination at a health care facility Pain and swelling of right knee Weight loss, non-intentional Loss of weight Pain of upper abdomen Abdominal pain, other specified site Neck pain Cervicalgia Pain in thoracic spine 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, unspecified vessel or lesion type (HCC) Epidermoid cyst of skin of scalp [facility] Diagnosis Pain of upper abdomen- Primary Abdominal pain, other specified site Adjustment disorder with mixed anxiety and depressed mood Chronic bilateral low back pain with bilateral sciatica Urge incontinence Takotsubo cardiomyopathy Takotsubo syndrome Weight loss, non-intentional Loss of weight Dysphagia, unspecified type Osteoporosis, unspecified osteoporosis type, unspecified pathological fracture presence [facility] this encounter [facility]* Diagnosis Dysphagia, unspecified type documented in this encounter [facility] noteNo assessment information [facility] Work [facility]* Diagnosis Pain of upper abdomen- Primary Abdominal pain, other specified site Weight loss, non-intentional Loss of weight Dysphagia, unspecified type documented in this encounter [facility] note* Diagnosis Pre-operative examination- Primary Preoperative examination, unspecified Parkinson's disease (HCC) Paralysis agitans Gastroesophageal reflux disease without esophagitis Esophageal reflux Essential hypertension, benign 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, unspecified vessel or lesion type (HCC) Uncomplicated asthma, unspecified asthma severity, unspecified whether persistent Adjustment disorder with mixed anxiety and depressed mood Chronic bilateral low back pain without sciatica Dysphagia, unspecified type Other hyperlipidemia Small fiber neuropathy Unspecified hereditary and idiopathic peripheral neuropathy Takotsubo cardiomyopathy Takotsubo syndrome Urge incontinence Weight loss, non-intentional Loss of weight VHD (valvular heart disease) Endocarditis, valve unspecified, unspecified cause Osteoporosis, unspecified osteoporosis type, unspecified pathological fracture presence [facility]* Diagnosis Weight loss, non-intentional Loss of weight Pain of upper abdomen Abdominal pain, other specified site [facility]* Diagnosis Hypotension, unspecified hypotension type- Primary Chronic bilateral low back pain with bilateral sciatica Coronary artery disease involving pechanga coronary artery of pe[place]anga heart without angina pectoris Chronic gastritis without bleeding, unspecified gastritis type [facility]* Diagnosis Dementia without behavioral disturbance (HCC) Dementia, unspecified, without behavioral disturbance [facility]* Diagnosis Chronic gastritis without bleeding, unspecified gastritis type- Primary Unsteady gait Abnormality of gait Cognitive decline Unspecified persistent mental disorders due to conditions classified elsewhere Sprain of left ankle, unspecified ligament, subsequent encounter Parkinson's disease, unspecified whether dyskinesia present, unspecified whether manifestations fluctuate (HCC) [facility]* Diagnosis Parkinson's disease, unspecified whether dyskinesia present, unspecified whether manifestations fluctuate (HCC)- Primary Cognitive decline Unspecified persistent mental disorders due to conditions classified elsewhere 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 Dementia without behavioral disturbance (HCC) Dementia, unspecified, without behavioral disturbance documented in this encounter [facility] note* Diagnosis Onset Date Resolution Status Cardiac murmur acute Fatigue acute SOB (shortness of breath) ac nez perce 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 pectoris chronic Essential (primary) hypertension chronic Hyperlipidemia chronic Takotsubo cardiomyopathy [facility] Work Phone: Evaluation note* Diagnosis Medicare annual wellness visit, subsequent- Primary Routine general medical examination at a health care facility Chronic bilateral low back pain without sciatica Parkinson's disease, unspecified whether dyskinesia present, unspecified whether manifestations fluctuate (HCC) Adjustment disorder with mixed anxiety and depressed mood Urge incontinence Osteoporosis, unspecified osteoporosis type, unspecified pathological fracture presence Dementia associated with Parkinson's disease (HCC) Weight loss, non-intentional Loss of weight 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, unspecified vessel or lesion type (HCC) Vitamin D deficiency Unspecified vitamin D deficiency Need for COVID-19 vaccine [facility]* Diagnosis Parkinson's disease, unspecified whether dyskinesia present, unspecified whether manifestations fluctuate (HCC)- Primary Incontinence without sensory awareness Dementia associated with Parkinson's disease (HCC) documented in this encounter [facility] note* Diagnosis Adjustment disorder with mixed anxiety and depressed mood Chronic bilateral low back pain with bilateral sciatica [facility]* Diagnosis Takotsubo cardiomyopathy Takotsubo syndrome documented in this encounter [facility] note* Diagnosis Parkinson's disease, unspecified whether dyskinesia present, unspecified whether manifestations fluctuate (HCC)- Primary 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 Daytime sleepiness documented in this encounter [facility] note* Diagnosis Pre-operative examination- Primary Preoperative examination, unspecified Parkinson's disease (HCC) Paralysis agitans Gastroesophageal reflux disease without esophagitis Esophageal reflux Essential hypertension, benign 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, unspecified vessel or lesion type (HCC) Uncomplicated asthma, unspecified asthma severity, unspecified whether persistent Adjustment disorder with mixed anxiety and depressed mood Chronic bilateral low back pain without sciatica Dysphagia, unspecified type Other hyperlipidemia Small fiber neuropathy Unspecified hereditary and idiopathic peripheral neuropathy Takotsubo cardiomyopathy Takotsubo syndrome Urge incontinence Weight loss, non-intentional Loss of weight VHD (valvular heart disease) Endocarditis, valve unspecified, unspecified cause Osteoporosis, unspecified osteoporosis type, unspecified pathological fracture presence Weight loss, non-intentional- Primary Loss of weight Chronic bilateral low back pain without sciatica Dysphagia, unspecified type Parkinson's disease, unspecified whether dyskinesia present, unspecified whether manifestations fluctuate (HCC) Dementia associated with Parkinson's disease (HCC) documented in this encounter [facility] note* Diagnosis Pre-operative examination- Primary Preoperative examination, unspecified Parkinson's disease (HCC) Paralysis agitans Gastroesophageal reflux disease without esophagitis Esophageal reflux Essential hypertension, benign 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, unspecified vessel or lesion type (HCC) Uncomplicated asthma, unspecified asthma severity, unspecified whether persistent Adjustment disorder with mixed anxiety and depressed mood Chronic bilateral low back pain without sciatica Dysphagia, unspecified type Other hyperlipidemia Small fiber neuropathy Unspecified hereditary and idiopathic peripheral neuropathy Takotsubo cardiomyopathy Takotsubo syndrome Urge incontinence Weight loss, non-intentional Loss of weight VHD (valvular heart disease) Endocarditis, valve unspecified, unspecified cause Osteoporosis, unspecified osteoporosis type, unspecified pathological fracture presence Urge incontinence Adjustment disorder with mixed anxiety and depressed mood Weight loss, non-intentional Loss of weight documented in this encounter [facility] note* Diagnosis Pre-operative examination- Primary Preoperative examination, unspecified Parkinson's disease (HCC) Paralysis agitans Gastroesophageal reflux disease without esophagitis Esophageal reflux Essential hypertension, benign 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, unspecified vessel or lesion type (HCC) Uncomplicated asthma, unspecified asthma severity, unspecified whether persistent Adjustment disorder with mixed anxiety and depressed mood Chronic bilateral low back pain without sciatica Dysphagia, unspecified type Other hyperlipidemia Small fiber neuropathy Unspecified hereditary and idiopathic peripheral neuropathy Takotsubo cardiomyopathy Takotsubo syndrome Urge incontinence Weight loss, non-intentional Loss of weight VHD (valvular heart disease) Endocarditis, valve unspecified, unspecified cause Osteoporosis, unspecified osteoporosis type, unspecified pathological fracture presence 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 documented in this encounter [facility] note* Diagnosis Pre-operative examination- Primary Preoperative examination, unspecified Parkinson's disease (HCC) Paralysis agitans Gastroesophageal reflux disease without esophagitis Esophageal reflux Essential hypertension, benign 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, unspecified vessel or lesion type (HCC) Uncomplicated asthma, unspecified asthma severity, unspecified whether persistent Adjustment disorder with mixed anxiety and depressed mood Chronic bilateral low back pain without sciatica Dysphagia, unspecified type Other hyperlipidemia Small fiber neuropathy Unspecified hereditary and idiopathic peripheral neuropathy Takotsubo cardiomyopathy Takotsubo syndrome Urge incontinence Weight loss, non-intentional Loss of weight VHD (valvular heart disease) Endocarditis, valve unspecified, unspecified cause Osteoporosis, unspecified osteoporosis type, unspecified pathological fracture presence URI, acute Acute upper respiratory infections of unspecified site documented in this encounter [facility] note* Diagnosis Chronic cough Cough Pre-operative examination- Primary Preoperative examination, unspecified Parkinson's disease (HCC) Paralysis agitans Gastroesophageal reflux disease without esophagitis Esophageal reflux Essential hypertension, benign 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, unspecified vessel or lesion type (HCC) Uncomplicated asthma, unspecified asthma severity, unspecified whether persistent Adjustment disorder with mixed anxiety and depressed mood Chronic bilateral low back pain without sciatica Dysphagia, unspecified type Other hyperlipidemia Small fiber neuropathy Unspecified hereditary and idiopathic peripheral neuropathy Takotsubo cardiomyopathy Takotsubo syndrome Urge incontinence Weight loss, non-intentional Loss of weight VHD (valvular heart disease) Endocarditis, valve unspecified, unspecified cause Osteoporosis, unspecified osteoporosis type, unspecified pathological fracture presence documented in this encounter [facility] Plan of care note* Visit Details Visit Type -PATHOLOGY TEACHER ROUTINE Discipline -Physical Therapy Problems Problem Description Start Date Status Goals Interve ntions Sepsis Disciplines: Skilled Services 11/10/2023 Active 1 goal linked to scheduled/document ed intervention 1 goal intervention scheduled/document ed in this visit Physician Specific Parameters Disciplines: Skilled Services 11/10/2023 Active 1 goal linked to scheduled/document ed intervention 1 goal intervention scheduled/document ed in this visit Risk for Falls Disciplines: Skilled Services 11/10/2023 Active 1 goal linked to scheduled/document ed intervention 1 goal intervention scheduled/document ed in this visit Pain Disciplines: Skilled Services 11/10/2023 Active 1 goal linked to scheduled/document ed intervention 1 goal intervention scheduled/document ed in this visit High Risk Medications Disciplines: Skilled Services 11/10/2023 Active 1 goal linked to scheduled/document ed intervention 1 goal intervention scheduled/document ed in this visit Discharge Disciplines: Skilled Services 11/10/2023 Active 1 goal linked to scheduled/document ed intervention 1 goal intervention scheduled/document ed in this visit PT Impaired muscle performance and/or ROM Disciplines: PT 11/10/2023 Active 1 goal linked to scheduled/document ed intervention 1 goal intervention scheduled/document ed in this visit PT Impaired gait Disciplines: PT 11/10/2023 Active 1 goal linked to scheduled/document ed intervention 1 goal intervention scheduled/document ed in this visit PT Learning Assessment Disciplines: PT 11/10/2023 Active 1 goal linked to scheduled/document ed intervention 1 goal intervention scheduled/document ed in this visit Goals Goal Associated Problem Outcome Goal Met? Visit Notes Patient/caregiver will be able to identify and report symptoms of sepsis Description: Patient/caregiver will be able to identify signs/symptoms of sepsis infection and will verbalize actions to take if suspected by 01/08/24. Sepsis No Patient to maintain parameters within physician-specified ranges throughout certification period Physician Specific Parameters No Manage Risk for falls Description: Patient/caregiver will verbalize knowledge of individualized fall prevention strategies by 12/09/23. Risk for Falls No Manage Pain Description: Patient/caregiver will verbalize knowledge and understanding of appropriate techniques to control pain, including non-pharmacological techniques. Patient will verbalize or demonstrate an acceptable level of pain as evidenced by a pain score of 0-2/10 and improvement in ability to perform activities of daily living to be achieved by 01/08/24. Pain No Patient/caregiver will teach back high risk medication side effect and precaution education Description: LTG Patient/caregiver will continue to verbalize understanding of high risk medication side effects and precautions throughout certification period. High Risk Medications No Manage discharge planning Description: Patient/caregiver will verbalize understanding of ongoing discharge plan provided related to disease management, arrangements for outpatient and/or community services, obtaining medications, supplies, and DME, as needed throughout certification period. Discharge No Improved Muscle Performance and/or ROM Description: LTG: Patient will demonstrate improved muscle performance to meet functional goals as evidenced by ability to tolerate 8 mins activity, to be achieved by 12/09/23. LTG: Patient and/or caregiver will verbalize/demonstrate independence with home exercise program, to improve functional mobility, to be achieved by 12/09/23. PT Impaired muscle performance and/or ROM No Improved Gait Description: LTG: Patient will demonstrate improved gait ability as evidenced by ambulation 200 feet with single point cane independently with AD, to return to safe household ambulation, in order to reach car in the driveway, to be achieved by 12/09/23. PT Impaired gait No Demonstrate understanding of education Description: Patient and/or caregiver will understand educational instruction to be achieved by 12/09/23. PT Learning Assessment No Interventions Intervention Associated Problem/Goal Status Variance Visit Notes Risk of Sepsis Description: Patient is at risk for sepsis. Monitor closely for s/s of sepsis. Problem:Sepsis Goal:Patient/caregive r will be able to identify and report symptoms of sepsis Completed SPO2 Description: Notify manager recruitment Queener if pulse ox is <92% at rest. Problem:Physician Specific Parameters Goal:Patient to maintain parameters within physician-specified ranges throughout certification period Completed Instruct on individual fall risk factors and strategies to prevent falls and injuries caused by falls. Problem:Risk for Falls Goal:Manage Risk for falls Completed PT: Patient and Caregiver instructed on Eliminating Environmental Hazards: Keep pathways clear Managing Impaired Functional Mobility: Use assistive device(s): single point cane Managing Pain Instruct on pain and instruct on strategies to control pain Problem:Pain Goal:Manage Pain Completed patient instructed on techniques to control pain including Pharmacological measures and Non-Pharmacological measures; rest, positioning/elevation and use of thermal modalities, apply ice to affected area for the following prescribed frequency: prn. Opioids- educated on high risk medication Problem:High Risk Medications Goal:Patient/caregive r will teach back high risk medication side effect and precaution education Completed patient and caregiver educated on taking medication(s) as prescribed by provider. Do not stop medication or alter doses without speaking with your provider. Discuss medication effectiveness or side effect concerns with your provider and home care team. Only take opioids as prescribed, do not share your medications, and take proper precautions in storing and properly disposing of opioids once no longer needed. Possible side effects of opioid medication including sedation, decreased rate of breathing, and constipation. Report over sedation to prescribing provider and practice deep breathing techniques every hour while awake. Prevent constipation by increasing water and fiber intake, increasing activity as tolerated, and use stool softener(s) as prescribed. Instruct on ongoing discharge plan Problem:Discharge Goal:Manage discharge planning Completed Ongoing Discharge plan: Discharge plan discussed with patient and caregiver including frequency and duration for home PT and plan for transition to: caregiver assistance. Physical Therapy Therapeutic Exercises Problem:PT Impaired muscle performance and/or ROM Goal:Improved Muscle Performance and/or ROM Completed patient instructed on strengthening exercises including seated faq, hip flexion and add, heel toe raises xs 10each with verbal, visual and written cues for correct form anf hold times. patient and caregiver instructed to perform home exercise program daily which included above ex. Physical Therapy Gait Training Problem:PT Impaired gait Goal:Improved Gait Completed Gait training and instruction to patient and caregiver on safe ambulation with single point cane for 2x's 20 feet with stand by assist, with verbal cues for corrections of gait deviations including posture and correct sequencing w/ cane. Instruct and educate on knowledge deficits Problem:PT Learning Assessment Goal:Demonstrate understanding of education Completed patient verbalize and/or demonstrate understanding of physical therapy education including pain management and home exercise program. Education methods include: verbal cues, written instructions and visual cues. Further education required to improve knowledge and compliance with home exercise program. [facility] Visit Details Visit Type -SURGICAL SUPPLIES STERILIZER EVAL Discipline -Speech Language Pathology Problems Problem Description Start Date Status Goals Interve ntions Medication Education Disciplines: Skilled Services 11/10/2023 Active 1 goal linked to scheduled/documente d intervention 1 goal intervention scheduled/documente d in this visit Sepsis Disciplines: Skilled Services 11/10/2023 Active 1 goal linked to scheduled/documente d intervention 1 goal intervention scheduled/documente d in this visit SURGICAL SUPPLIES STERILIZER Referral Disciplines: Skilled Services 11/10/2023 Active 1 goal linked to scheduled/documente d intervention 1 goal intervention scheduled/documente d in this visit Physician Specific Parameters Disciplines: Skilled Services 11/10/2023 Active 1 goal linked to scheduled/documente d intervention 1 goal intervention scheduled/documente d in this visit Risk for Falls Disciplines: Skilled Services 11/10/2023 Active 1 goal linked to scheduled/documente d intervention 1 goal intervention scheduled/documente d in this visit Pain Disciplines: Skilled Services 11/10/2023 Active 1 goal linked to scheduled/documente d intervention 1 goal intervention scheduled/documente d in this visit High Risk Medications Disciplines: Skilled Services 11/10/2023 Active 1 goal linked to scheduled/documente d intervention 2 goal interventions scheduled/documente d in this visit Discharge Disciplines: Skilled Services 11/10/2023 Active 1 goal linked to scheduled/documente d intervention 1 goal intervention scheduled/documente d in this visit SURGICAL SUPPLIES STERILIZER Learning Assessment Disciplines: SURGICAL SUPPLIES STERILIZER 11/15/2023 Active 1 goal linked to scheduled/documente d intervention 1 goal intervention scheduled/documente d in this visit SURGICAL SUPPLIES STERILIZER Dysphagia Impaired Swallow Function Disciplines: SURGICAL SUPPLIES STERILIZER 11/15/2023 Active 2 goals linked to scheduled/documente d interventions 2 goal interventions scheduled/documente d in this visit Goals Goal Associated Problem Outcome Goal Met? Visit Notes Patient/caregiver will demonstrate ability to obtain, store, identify and administer ordered medications, keep accurate medication list in home, and adhere to medication schedule Description: Patient/caregiver will demonstrate ability to obtain, store, identify and administer ordered medications, keep accurate medication list in home, and adhere to medication schedule by 01/08/24. Medication Education No Patient/caregiver will be able to identify and report symptoms of sepsis Description: Patient/caregiver will be able to identify signs/symptoms of sepsis infection and will verbalize actions to take if suspected by 01/08/24. Sepsis No Patient will be referred to additional discipline as needed SURGICAL SUPPLIES STERILIZER Referral No Patient to maintain parameters within physician-specified ranges throughout certification period Physician Specific Parameters No Manage Risk for falls Description: Patient/caregiver will verbalize knowledge of individualized fall prevention strategies by 12/09/23. Risk for Falls No Manage Pain Description: Patient/caregiver will verbalize knowledge and understanding of appropriate techniques to control pain, including non-pharmacological techniques. Patient will verbalize or demonstrate an acceptable level of pain as evidenced by a pain score of 0-2/10 and improvement in ability to perform activities of daily living to be achieved by 01/08/24. Pain No Patient/caregiver will teach back high risk medication side effect and precaution education Description: LTG Patient/caregiver will continue to verbalize understanding of high risk medication side effects and precautions throughout certification period. High Risk Medications No Manage discharge planning Description: Patient/caregiver will verbalize understanding of ongoing discharge plan provided related to disease management, arrangements for outpatient and/or community services, obtaining medications, supplies, and DME, as needed throughout certification period. Discharge No Patient/Caregiver Demonstrates understanding of education Description: patient and caregiver will understand educational instruction, to be achieved by 01/08/24. SURGICAL SUPPLIES STERILIZER Learning Assessment No Improve Swallowing Tolerance Description: Patient will demonstrate ability to manage the following IDDSI food texture: easy to chew(7EC) and IDDSI liquid consistency: thin(0) or secretions with no overt signs or symptoms of aspiration/dysphagia with/in 90% trials, with compensatory swallowing strategies/cues. To be achieved by 01/08/24. SURGICAL SUPPLIES STERILIZER Dysphagia Impaired Swallow Function No Improve Swallow Function SURGICAL SUPPLIES STERILIZER Dysphagia Impaired Swallow Function No Interventions Intervention Associated Problem/Goal Status Variance Visit Notes Medication Education Description: Evaluate/instruct patient/caregiver on obtaining, storing, identifying and administering ordered medications as well as keeping accurate medication list in the home and adhereing to medication schedule Problem:Medication Education Goal:Patient/caregive r will demonstrate ability to obtain, store, identify and administer ordered medications, keep accurate medication list in home, and adhere to medication schedule Completed Patient instructed on adhering to medication schedule. Risk of Sepsis Description: Patient is at risk for sepsis. Monitor closely for s/s of sepsis. Problem:Sepsis Goal:Patient/caregive r will be able to identify and report symptoms of sepsis Completed SURGICAL SUPPLIES STERILIZER evaluation and treatment Description: ST Referral eval and treat for Impaired swallowing, verbal expression and memory. Problem:SURGICAL SUPPLIES STERILIZER Referral Goal:Patient will be referred to additional discipline as needed Completed SPO2 Description: Notify manager recruitment Queener if pulse ox is <92% at rest. Problem:Physician Specific Parameters Goal:Patient to maintain parameters within physician-specified ranges throughout certification period Completed Instruct on individual fall risk factors and strategies to prevent falls and injuries caused by falls. Problem:Risk for Falls Goal:Manage Risk for falls Completed SURGICAL SUPPLIES STERILIZER: Patient and Caregiver instructed on Managing Impaired Functional Mobility: Use assistive device(s): front wheeled walker and single point cane and Caregiver to provide assist with: Steps, ADL/IADLs and supervision. Instruct on pain and instruct on strategies to control pain Problem:Pain Goal:Manage Pain Completed patient instructed on techniques to control pain including Pharmacological measures and Non-Pharmacological measures; rest and positioning/elevation. Opioids- educated on high risk medication Problem:High Risk Medications Goal:Patient/caregive r will teach back high risk medication side effect and precaution education Completed patient educated on taking medication(s) as prescribed by provider. Do not stop medication or alter doses without speaking with your provider. Discuss medication effectiveness or side effect concerns with your provider and home care team. Only take opioids as prescribed, do not share your medications, and take proper precautions in storing and properly disposing of opioids once no longer needed. Possible side effects of opioid medication including sedation, decreased rate of breathing, and constipation. Report over sedation to prescribing provider and practice deep breathing techniques every hour while awake. Prevent constipation by increasing water and fiber intake, increasing activity as tolerated, and use stool softener(s) as prescribed. Antiplatelet- educated on high risk medication Problem:High Risk Medications Goal:Patient/caregive r will teach back high risk medication side effect and precaution education Completed patient educated on taking medication(s) as prescribed by provider. Do not stop medication or alter doses without speaking with your provider. Discuss medication effectiveness or side effect concerns with your provider and home care team. Discuss all medications you are taking, even [id number] medicines, with your provider and pharmacist since many drugs can interact with antiplatelet medications. If you forget to take a dose, DO NOT take a double dose. Take the missed dose as soon as possible on the same day. DO NOT take a double dose the next day to make up for the missed dose. Watch for signs of abnormal or excessive bleeding and bruising (refer to Bleeding Precautions education). Call your health care provider right away if you suspect something is wrong. Instruct on ongoing discharge plan Problem:Discharge Goal:Manage discharge planning Completed Ongoing Discharge plan: Discharge plan discussed with patient and caregiver including frequency and duration for home ST and plan for transition to: caregiver assistance. Assessment of patient/caregiver knowledge deficit and educational instruction Problem:SURGICAL SUPPLIES STERILIZER Learning Assessment Goal:Patient/Caregive r Demonstrates understanding of education Completed Education methods include: verbal cues and teach back. Further education required to improve knowledge and compliance with dysphagia, diet consistency/texture management and aspiration precautions and home exercise plan. Dysphagia therapy modification of food/liquids disease process education Problem:SURGICAL SUPPLIES STERILIZER Dysphagia Impaired Swallow Function Goal:Improve Swallowing Tolerance Completed Patient/caregiver instructed on IDDSI food texture soft and bite sized(6) and IDDSI liquid consistency thin(0) or secretions and provided education on preparation of appropriate diet texture. SURGICAL SUPPLIES STERILIZER presented PO trials with regular soft/thin texture/consistency and patient tolerated with/in 90% trials, with compensatory swallowing strategies/cues. Patient/Caregiver verbalize understanding of dysphagia home program at 70% accuracy. Compensatory strategies disease process education Description: Patient/caregiver will demonstrate understanding of disease process related to dysphagia: signs/symptoms of aspiration, rationale for diet modifications, anatomy of swallowing mechanism, use of anatomical diagrams for education related to swallowing mechanism and safe swallow strategy use with/in 90% trials. To be achieved by 12/09/23. Problem:SURGICAL SUPPLIES STERILIZER Dysphagia Impaired Swallow Function Goal:Improve Swallow Function Completed Patient/caregiver instructed on signs and symptoms of dysphagia: coughing or choking while eating or drinking, wet vocal quality post swallow, weight loss and inability to chew specific foods; results of MBS/FEES; rationale for diet modifications; good oral hygiene; swallow strategies to reduce aspiration risks small bites, small sips, slow rate of intake and alternate liquids with solids with/in 60% opportunities. documented in this encounter [facility] home Plan of care note* Visit Details Visit Type -PATHOLOGY TEACHER ROUTINE Discipline -Physical Therapy Problems Problem Description Start Date Status Goals Interve ntions Medication Education Disciplines: Skilled Services 11/10/2023 Active 1 goal linked to scheduled/document ed intervention 1 goal intervention scheduled/document ed in this visit Sepsis Disciplines: Skilled Services 11/10/2023 Active 1 goal linked to scheduled/document ed intervention 1 goal intervention scheduled/document ed in this visit Physician Specific Parameters Disciplines: Skilled Services 11/10/2023 Active 1 goal linked to scheduled/document ed intervention 1 goal intervention scheduled/document ed in this visit Risk for Falls Disciplines: Skilled Services 11/10/2023 Active 1 goal linked to scheduled/document ed intervention 1 goal intervention scheduled/document ed in this visit Pain Disciplines: Skilled Services 11/10/2023 Active 1 goal linked to scheduled/document ed intervention 1 goal intervention scheduled/document ed in this visit High Risk Medications Disciplines: Skilled Services 11/10/2023 Active 1 goal linked to scheduled/document ed intervention 2 goal interventions scheduled/document ed in this visit Discharge Disciplines: Skilled Services 11/10/2023 Active 1 goal linked to scheduled/document ed intervention 1 goal intervention scheduled/document ed in this visit PT Impaired muscle performance and/or ROM Disciplines: PT 11/10/2023 Active 1 goal linked to scheduled/document ed intervention 1 goal intervention scheduled/document ed in this visit PT Impaired mobility Disciplines: PT 11/10/2023 Active 1 goal linked to scheduled/document ed intervention 1 goal intervention scheduled/document ed in this visit PT Impaired gait Disciplines: PT 11/10/2023 Active 1 goal linked to scheduled/document ed intervention 1 goal intervention scheduled/document ed in this visit PT Neurologic Condition Disciplines: PT 11/10/2023 Active 1 goal linked to scheduled/document ed intervention 1 goal intervention scheduled/document ed in this visit PT Learning Assessment Disciplines: PT 11/10/2023 Active 1 goal linked to scheduled/document ed intervention 1 goal intervention scheduled/document ed in this visit Goals Goal Associated Problem Outcome Goal Met? Visit Notes Patient/caregiver will demonstrate ability to obtain, store, identify and administer ordered medications, keep accurate medication list in home, and adhere to medication schedule Description: Patient/caregiver will demonstrate ability to obtain, store, identify and administer ordered medications, keep accurate medication list in home, and adhere to medication schedule by 01/08/24. Medication Education No Patient/caregiver will be able to identify and report symptoms of sepsis Description: Patient/caregiver will be able to identify signs/symptoms of sepsis infection and will verbalize actions to take if suspected by 01/08/24. Sepsis No Patient to maintain parameters within physician-specified ranges throughout certification period Physician Specific Parameters No Manage Risk for falls Description: Patient/caregiver will verbalize knowledge of individualized fall prevention strategies by 12/09/23. Risk for Falls No Manage Pain Description: Patient/caregiver will verbalize knowledge and understanding of appropriate techniques to control pain, including non-pharmacological techniques. Patient will verbalize or demonstrate an acceptable level of pain as evidenced by a pain score of 0-2/10 and improvement in ability to perform activities of daily living to be achieved by 01/08/24. Pain No Patient/caregiver will teach back high risk medication side effect and precaution education Description: LTG Patient/caregiver will continue to verbalize understanding of high risk medication side effects and precautions throughout certification period. High Risk Medications No Manage discharge planning Description: Patient/caregiver will verbalize understanding of ongoing discharge plan provided related to disease management, arrangements for outpatient and/or community services, obtaining medications, supplies, and DME, as needed throughout certification period. Discharge No Improved Muscle Performance and/or ROM Description: LTG: Patient will demonstrate improved muscle performance to meet functional goals as evidenced by ability to tolerate 8 mins activity, to be achieved by 12/09/23. LTG: Patient and/or caregiver will verbalize/demonstrate independence with home exercise program, to improve functional mobility, to be achieved by 12/09/23. PT Impaired muscle performance and/or ROM No Improved Transfers Description: LTG: Patient will demonstrate safe transfers to/from bed, chair and toilet independently with AD, to be achieved by 12/09/23. PT Impaired mobility No Improved Gait Description: LTG: Patient will demonstrate improved gait ability as evidenced by ambulation 200 feet with single point cane independently with AD, to return to safe household ambulation, in order to reach car in the driveway, to be achieved by 12/09/23. PT Impaired gait No Manage Neurologic Condition Description: Improve patient and/or caregiver understanding of post surgical and/or non-surgical neurologic intervention management as evidenced by patient and/or caregiver able to verbalize, demonstrate, and teach back instruction, to be achieved by 12/09/23. PT Neurologic Condition No Demonstrate understanding of education Description: Patient and/or caregiver will understand educational instruction to be achieved by 12/09/23. PT Learning Assessment No Interventions Intervention Associated Problem/Goal Status Variance Visit Notes Medication Education Description: Evaluate/instruct patient/caregiver on obtaining, storing, identifying and administering ordered medications as well as keeping accurate medication list in the home and adhereing to medication schedule Problem:Medication Education Goal:Patient/caregive r will demonstrate ability to obtain, store, identify and administer ordered medications, keep accurate medication list in home, and adhere to medication schedule Completed Patient instructed on importance of keeping accurate medication list in home. Risk of Sepsis Description: Patient is at risk for sepsis. Monitor closely for s/s of sepsis. Problem:Sepsis Goal:Patient/caregive r will be able to identify and report symptoms of sepsis Completed SPO2 Description: Notify manager recruitment Queener if pulse ox is <92% at rest. Problem:Physician Specific Parameters Goal:Patient to maintain parameters within physician-specified ranges throughout certification period Completed Instruct on individual fall risk factors and strategies to prevent falls and injuries caused by falls. Problem:Risk for Falls Goal:Manage Risk for falls Completed PT: Patient instructed on Eliminating Environmental Hazards: Keep pathways clear, Keep pets out of pathways, Move furniture from pathways and Keep rooms and walkways well lit Instruct on pain and instruct on strategies to control pain Problem:Pain Goal:Manage Pain Completed patient instructed on techniques to control pain including Pharmacological measures and Non-Pharmacological measures; rest, positioning/elevation and use of thermal modalities, apply ice to affected area for the following prescribed frequency: prn. Opioids- educated on high risk medication Problem:High Risk Medications Goal:Patient/caregive r will teach back high risk medication side effect and precaution education Completed patient educated on taking medication(s) as prescribed by provider. Do not stop medication or alter doses without speaking with your provider. Discuss medication effectiveness or side effect concerns with your provider and home care team. Only take opioids as prescribed, do not share your medications, and take proper precautions in storing and properly disposing of opioids once no longer needed. Possible side effects of opioid medication including sedation, decreased rate of breathing, and constipation. Report over sedation to prescribing provider and practice deep breathing techniques every hour while awake. Prevent constipation by increasing water and fiber intake, increasing activity as tolerated, and use stool softener(s) as prescribed. Antiplatelet- educated on high risk medication Problem:High Risk Medications Goal:Patient/caregive r will teach back high risk medication side effect and precaution education Completed patient educated on taking medication(s) as prescribed by provider. Do not stop medication or alter doses without speaking with your provider. Discuss medication effectiveness or side effect concerns with your provider and home care team. Discuss all medications you are taking, even [id number] medicines, with your provider and pharmacist since many drugs can interact with antiplatelet medications. If you forget to take a dose, DO NOT take a double dose. Take the missed dose as soon as possible on the same day. DO NOT take a double dose the next day to make up for the missed dose. Watch for signs of abnormal or excessive bleeding and bruising (refer to Bleeding Precautions education). Call your health care provider right away if you suspect something is wrong. Instruct on ongoing discharge plan Problem:Discharge Goal:Manage discharge planning Completed Ongoing Discharge plan: Discharge plan discussed with patient including frequency and duration for home PT and plan for transition to: live independently at home without ongoing services. Physical Therapy Therapeutic Exercises Problem:PT Impaired muscle performance and/or ROM Goal:Improved Muscle Performance and/or ROM Completed patient instructed on strengthening exercises including seated faq, hip flexion and add, heel toe raises, standing hams curls x's 10 each. restorator x's 5min with verbal and visual cues for correct form and pace . patient instructed to perform home exercise program daily Physical Therapy Transfer Training Problem:PT Impaired mobility Goal:Improved Transfers Completed Transfer training and instruction to patient on safe transfers to and from chair with supervision and verbal cues for reaching back for chair prior to sitting. Physical Therapy Gait Training Problem:PT Impaired gait Goal:Improved Gait Completed Gait training and instruction to patient on safe ambulation with single point cane for 2x's 20 feet with supervision, with verbal cues for corrections of gait deviations including posture and lateral sway. Instruct on self-management of post surgical and/or non-surgical neurologic intervention Problem:PT Neurologic Condition Goal:Manage Neurologic Condition Completed patient instructed on instructed on when to call [facility] (balance, eyes, face, arms, speech, time). Instruct and educate on knowledge deficits Problem:PT Learning Assessment Goal:Demonstrate understanding of education Completed patient verbalize and/or demonstrate understanding of physical therapy education including home exercise program. Education methods include: verbal cues and visual cues. Further education required to improve knowledge and compliance with home exercise program. [facility] Visit Details Visit Type -PATHOLOGY TEACHER ROUTINE Discipline -Physical Therapy Problems Problem Description Start Date Status Goals Interve ntions Medication Education Disciplines: Skilled Services 11/10/2023 Active 1 goal linked to scheduled/document ed intervention 1 goal intervention scheduled/document ed in this visit Sepsis Disciplines: Skilled Services 11/10/2023 Active 1 goal linked to scheduled/document ed intervention 1 goal intervention scheduled/document ed in this visit Physician Specific Parameters Disciplines: Skilled Services 11/10/2023 Active 1 goal linked to scheduled/document ed intervention 1 goal intervention scheduled/document ed in this visit Risk for Falls Disciplines: Skilled Services 11/10/2023 Active 1 goal linked to scheduled/document ed intervention 1 goal intervention scheduled/document ed in this visit Pain Disciplines: Skilled Services 11/10/2023 Active 1 goal linked to scheduled/document ed intervention 1 goal intervention scheduled/document ed in this visit Discharge Disciplines: Skilled Services 11/10/2023 Active 1 goal linked to scheduled/document ed intervention 1 goal intervention scheduled/document ed in this visit PT Impaired muscle performance and/or ROM Disciplines: PT 11/10/2023 Active 1 goal linked to scheduled/document ed intervention 1 goal intervention scheduled/document ed in this visit PT Impaired gait Disciplines: PT 11/10/2023 Active 1 goal linked to scheduled/document ed intervention 1 goal intervention scheduled/document ed in this visit PT Neurologic Condition Disciplines: PT 11/10/2023 Active 1 goal linked to scheduled/document ed intervention 1 goal intervention scheduled/document ed in this visit PT Learning Assessment Disciplines: PT 11/10/2023 Active 1 goal linked to scheduled/document ed intervention 1 goal intervention scheduled/document ed in this visit Goals Goal Associated Problem Outcome Goal Met? Visit Notes Patient/caregiver will demonstrate ability to obtain, store, identify and administer ordered medications, keep accurate medication list in home, and adhere to medication schedule Description: Patient/caregiver will demonstrate ability to obtain, store, identify and administer ordered medications, keep accurate medication list in home, and adhere to medication schedule by 01/08/24. Medication Education No Patient/caregiver will be able to identify and report symptoms of sepsis Description: Patient/caregiver will be able to identify signs/symptoms of sepsis infection and will verbalize actions to take if suspected by 01/08/24. Sepsis No Patient to maintain parameters within physician-specified ranges throughout certification period Physician Specific Parameters No Manage Risk for falls Description: Patient/caregiver will verbalize knowledge of individualized fall prevention strategies by 12/09/23. Risk for Falls No Manage Pain Description: Patient/caregiver will verbalize knowledge and understanding of appropriate techniques to control pain, including non-pharmacological techniques. Patient will verbalize or demonstrate an acceptable level of pain as evidenced by a pain score of 0-2/10 and improvement in ability to perform activities of daily living to be achieved by 01/08/24. Pain No Manage discharge planning Description: Patient/caregiver will verbalize understanding of ongoing discharge plan provided related to disease management, arrangements for outpatient and/or community services, obtaining medications, supplies, and DME, as needed throughout certification period. Discharge No Improved Muscle Performance and/or ROM Description: LTG: Patient will demonstrate improved muscle performance to meet functional goals as evidenced by ability to tolerate 8 mins activity, to be achieved by 12/09/23. LTG: Patient and/or caregiver will verbalize/demonstrate independence with home exercise program, to improve functional mobility, to be achieved by 12/09/23. PT Impaired muscle performance and/or ROM No Improved Gait Description: LTG: Patient will demonstrate improved gait ability as evidenced by ambulation 200 feet with single point cane independently with AD, to return to safe household ambulation, in order to reach car in the driveway, to be achieved by 12/09/23. PT Impaired gait No Manage Neurologic Condition Description: Improve patient and/or caregiver understanding of post surgical and/or non-surgical neurologic intervention management as evidenced by patient and/or caregiver able to verbalize, demonstrate, and teach back instruction, to be achieved by 12/09/23. PT Neurologic Condition No Demonstrate understanding of education Description: Patient and/or caregiver will understand educational instruction to be achieved by 12/09/23. PT Learning Assessment No Interventions Intervention Associated Problem/Goal Status Variance Visit Notes Medication Education Description: Evaluate/instruct patient/caregiver on obtaining, storing, identifying and administering ordered medications as well as keeping accurate medication list in the home and adhereing to medication schedule Problem:Medication Education Goal:Patient/caregive r will demonstrate ability to obtain, store, identify and administer ordered medications, keep accurate medication list in home, and adhere to medication schedule Completed Patient instructed on importance of keeping accurate medication list in home. Risk of Sepsis Description: Patient is at risk for sepsis. Monitor closely for s/s of sepsis. Problem:Sepsis Goal:Patient/caregive r will be able to identify and report symptoms of sepsis Completed SPO2 Description: Notify manager recruitment Queener if pulse ox is <92% at rest. Problem:Physician Specific Parameters Goal:Patient to maintain parameters within physician-specified ranges throughout certification period Completed Instruct on individual fall risk factors and strategies to prevent falls and injuries caused by falls. Problem:Risk for Falls Goal:Manage Risk for falls Completed PT: Patient instructed on Eliminating Environmental Hazards: Keep pathways clear Instruct on pain and instruct on strategies to control pain Problem:Pain Goal:Manage Pain Completed patient instructed on techniques to control pain including Non-Pharmacological measures; rest and use of thermal modalities, apply ice to affected area for the following prescribed frequency: prn. Instruct on ongoing discharge plan Problem:Discharge Goal:Manage discharge planning Completed Ongoing Discharge plan: Discharge plan discussed with patient including frequency and duration for home PT and plan for transition to: live independently at home without ongoing services. Physical Therapy Therapeutic Exercises Problem:PT Impaired muscle performance and/or ROM Goal:Improved Muscle Performance and/or ROM Completed patient instructed on strengthening exercises including seated faq, hip flexion and add, heel toe raises x's 10 each, standing hams curls and marching x's 10 each. restorator x's 7min with verbal, visual and written cues for correct form. patient instructed to perform home exercise program twice a day which included above ex. Physical Therapy Gait Training Problem:PT Impaired gait Goal:Improved Gait Completed Gait training and instruction to patient on safe ambulation with single point cane for 3x's 30 feet with supervision and stand by assist, with tactile cues for corrections of gait deviations including posture. Instruct on self-management of post surgical and/or non-surgical neurologic intervention Problem:PT Neurologic Condition Goal:Manage Neurologic Condition Completed patient instructed on energy conservation. Instruct and educate on knowledge deficits Problem:PT Learning Assessment Goal:Demonstrate understanding of education Completed patient verbalize and/or demonstrate understanding of physical therapy education including weight bearing precautions, functional activity and home exercise program. Education methods include: verbal cues. Further education required to improve knowledge and compliance with home exercise program. [facility] Visit Details Visit Type -PATHOLOGY TEACHER ROUTINE Discipline -Physical Therapy Problems Problem Description Start Date Status Goals Interve ntions Medication Education Disciplines: Skilled Services 11/10/2023 Active 1 goal linked to scheduled/document ed intervention 1 goal intervention scheduled/document ed in this visit Sepsis Disciplines: Skilled Services 11/10/2023 Active 1 goal linked to scheduled/document ed intervention 1 goal intervention scheduled/document ed in this visit Physician Specific Parameters Disciplines: Skilled Services 11/10/2023 Active 1 goal linked to scheduled/document ed intervention 1 goal intervention scheduled/document ed in this visit Risk for Falls Disciplines: Skilled Services 11/10/2023 Active 1 goal linked to scheduled/document ed intervention 1 goal intervention scheduled/document ed in this visit Pain Disciplines: Skilled Services 11/10/2023 Active 1 goal linked to scheduled/document ed intervention 1 goal intervention scheduled/document ed in this visit Discharge Disciplines: Skilled Services 11/10/2023 Active 1 goal linked to scheduled/document ed intervention 1 goal intervention scheduled/document ed in this visit PT Impaired muscle performance and/or ROM Disciplines: PT 11/10/2023 Active 1 goal linked to scheduled/document ed intervention 1 goal intervention scheduled/document ed in this visit PT Impaired gait Disciplines: PT 11/10/2023 Active 2 goals linked to scheduled/document ed interventions 2 goal interventions scheduled/document ed in this visit PT Impaired balance Disciplines: PT 11/10/2023 Active 1 goal linked to scheduled/document ed intervention 1 goal intervention scheduled/document ed in this visit PT Learning Assessment Disciplines: PT 11/10/2023 Active 1 goal linked to scheduled/document ed intervention 1 goal intervention scheduled/document ed in this visit Goals Goal Associated Problem Outcome Goal Met? Visit Notes Patient/caregiver will demonstrate ability to obtain, store, identify and administer ordered medications, keep accurate medication list in home, and adhere to medication schedule Description: Patient/caregiver will demonstrate ability to obtain, store, identify and administer ordered medications, keep accurate medication list in home, and adhere to medication schedule by 01/08/24. Medication Education No Patient/caregiver will be able to identify and report symptoms of sepsis Description: Patient/caregiver will be able to identify signs/symptoms of sepsis infection and will verbalize actions to take if suspected by 01/08/24. Sepsis No Patient to maintain parameters within physician-specified ranges throughout certification period Physician Specific Parameters No Manage Risk for falls Description: Patient/caregiver will verbalize knowledge of individualized fall prevention strategies by 12/09/23. Risk for Falls No Manage Pain Description: Patient/caregiver will verbalize knowledge and understanding of appropriate techniques to control pain, including non-pharmacological techniques. Patient will verbalize or demonstrate an acceptable level of pain as evidenced by a pain score of 0-2/10 and improvement in ability to perform activities of daily living to be achieved by 01/08/24. Pain No Manage discharge planning Description: Patient/caregiver will verbalize understanding of ongoing discharge plan provided related to disease management, arrangements for outpatient and/or community services, obtaining medications, supplies, and DME, as needed throughout certification period. Discharge No Improved Muscle Performance and/or ROM Description: LTG: Patient will demonstrate improved muscle performance to meet functional goals as evidenced by ability to tolerate 8 mins activity, to be achieved by 12/09/23. LTG: Patient and/or caregiver will verbalize/demonstrate independence with home exercise program, to improve functional mobility, to be achieved by 12/09/23. PT Impaired muscle performance and/or ROM No Improved Stair Climbing Description: LTG: Patient will demonstrate improved stair negotiation as evidenced by ascend/descend 3 steps without railing independently, to safely exit home, to be achieved by 12/09/23. PT Impaired gait No Improved Gait Description: LTG: Patient will demonstrate improved gait ability as evidenced by ambulation 200 feet with single point cane independently with AD, to return to safe household ambulation, in order to reach car in the driveway, to be achieved by 12/09/23. PT Impaired gait No Improved Balance Description: LTG: Patient will demonstrate improved standing balance to meet functional goals as evidenced by no falls during home P.T. to be achieved by 12/09/23. PT Impaired balance No Demonstrate understanding of education Description: Patient and/or caregiver will understand educational instruction to be achieved by 12/09/23. PT Learning Assessment No Interventions Intervention Associated Problem/Goal Status Variance Visit Notes Medication Education Description: Evaluate/instruct patient/caregiver on obtaining, storing, identifying and administering ordered medications as well as keeping accurate medication list in the home and adhereing to medication schedule Problem:Medication Education Goal:Patient/caregive r will demonstrate ability to obtain, store, identify and administer ordered medications, keep accurate medication list in home, and adhere to medication schedule Completed Patient instructed on importance of keeping accurate medication list in home. Risk of Sepsis Description: Patient is at risk for sepsis. Monitor closely for s/s of sepsis. Problem:Sepsis Goal:Patient/caregive r will be able to identify and report symptoms of sepsis Completed SPO2 Description: Notify manager recruitment Queener if pulse ox is <92% at rest. Problem:Physician Specific Parameters Goal:Patient to maintain parameters within physician-specified ranges throughout certification period Completed Instruct on individual fall risk factors and strategies to prevent falls and injuries caused by falls. Problem:Risk for Falls Goal:Manage Risk for falls Completed PT: Patient instructed on Eliminating Environmental Hazards: Keep pathways clear Instruct on pain and instruct on strategies to control pain Problem:Pain Goal:Manage Pain Completed patient instructed on techniques to control pain including Pharmacological measures and Non-Pharmacological measures; rest and positioning/elevation. Instruct on ongoing discharge plan Problem:Discharge Goal:Manage discharge planning Completed Ongoing Discharge plan: Discharge plan discussed with patient including frequency and duration for home PT and plan for transition to: live independently at home without ongoing services. Physical Therapy Therapeutic Exercises Problem:PT Impaired muscle performance and/or ROM Goal:Improved Muscle Performance and/or ROM Completed patient instructed on strengthening exercises including seated faq, hip flex and add, heel toe rasies , standing hams curls marching, heel raises x's 10 each, yellow tband paulette and unilateral rows x's 10 each with verbal, visual and written cues for posture and pacing. patient instructed to perform home exercise program daily which included above ex. Physical Therapy Stair Training Problem:PT Impaired gait Goal:Improved Stair Climbing Completed Stair training and instruction to patient on safe stair climbing, ascend/descend 1 steps, with environmental support with supervision and verbal cues for safety. Physical Therapy Gait Training Problem:PT Impaired gait Goal:Improved Gait Completed Gait training and instruction to patient on safe ambulation with no device for 20 and w/ cane 2x's 30 feet with supervision, with verbal cues for corrections of gait deviations including posture . Physical Therapy Balance Training Problem:PT Impaired balance Goal:Improved Balance Completed Developed, implemented, and instructed patient on standing balance exercises including reaches . Instruct and educate on knowledge deficits Problem:PT Learning Assessment Goal:Demonstrate understanding of education Completed patient verbalize and/or demonstrate understanding of physical therapy education including home exercise program. Education methods include: verbal cues and visual cues. Further education required to improve knowledge and compliance with home exercise program. [facility] Visit Details Visit Type -SURGICAL SUPPLIES STERILIZER ROUTINE Discipline -Speech Language Pathology Problems Problem Description Start Date Status Goals Interve ntions Medication Education Disciplines: Skilled Services 11/10/2023 Active 1 goal linked to scheduled/documente d intervention 1 goal intervention scheduled/document ed in this visit SURGICAL SUPPLIES STERILIZER Referral Disciplines: Skilled Services 11/10/2023 Active 1 goal linked to scheduled/documente d intervention 1 goal intervention scheduled/document ed in this visit Physician Specific Parameters Disciplines: Skilled Services 11/10/2023 Active 1 goal linked to scheduled/documente d intervention 1 goal intervention scheduled/document ed in this visit Risk for Falls Disciplines: Skilled Services 11/10/2023 Active 1 goal linked to scheduled/documente d intervention 1 goal intervention scheduled/document ed in this visit Pain Disciplines: Skilled Services 11/10/2023 Active 1 goal linked to scheduled/documente d intervention 1 goal intervention scheduled/document ed in this visit High Risk Medications Disciplines: Skilled Services 11/10/2023 Active 1 goal linked to scheduled/documente d intervention 2 goal interventions scheduled/document ed in this visit Discharge Disciplines: Skilled Services 11/10/2023 Active 1 goal linked to scheduled/documente d intervention 1 goal intervention scheduled/document ed in this visit SURGICAL SUPPLIES STERILIZER Learning Assessment Disciplines: SURGICAL SUPPLIES STERILIZER 11/15/2023 Active 1 goal linked to scheduled/documente d intervention 1 goal intervention scheduled/document ed in this visit SURGICAL SUPPLIES STERILIZER Dysphagia Impaired Swallow Function Disciplines: SURGICAL SUPPLIES STERILIZER 11/15/2023 Active 1 goal linked to scheduled/documente d intervention 1 goal intervention scheduled/document ed in this visit SURGICAL SUPPLIES STERILIZER Dementia Impaired Memory/Cognition Disciplines: SURGICAL SUPPLIES STERILIZER 11/15/2023 Active 3 goals linked to scheduled/documente d interventions 3 goal interventions scheduled/document ed in this visit SURGICAL SUPPLIES STERILIZER Voice Intensity and Quality Disciplines: SURGICAL SUPPLIES STERILIZER 11/15/2023 Active 1 goal linked to scheduled/documente d intervention 1 goal intervention scheduled/document ed in this visit SURGICAL SUPPLIES STERILIZER Voice Production LTG Disciplines: SURGICAL SUPPLIES STERILIZER 11/15/2023 Active 1 goal linked to scheduled/documente d intervention 1 goal intervention scheduled/document ed in this visit Goals Goal Associated Problem Outcome Goal Met? Visit Notes Patient/caregiver will demonstrate ability to obtain, store, identify and administer ordered medications, keep accurate medication list in home, and adhere to medication schedule Description: Patient/caregiver will demonstrate ability to obtain, store, identify and administer ordered medications, keep accurate medication list in home, and adhere to medication schedule by 01/08/24. Medication Education No Patient will be referred to additional discipline as needed SURGICAL SUPPLIES STERILIZER Referral No Patient to maintain parameters within physician-specified ranges throughout certification period Physician Specific Parameters No Manage Risk for falls Description: Patient/caregiver will verbalize knowledge of individualized fall prevention strategies by 12/09/23. Risk for Falls No Manage Pain Description: Patient/caregiver will verbalize knowledge and understanding of appropriate techniques to control pain, including non-pharmacological techniques. Patient will verbalize or demonstrate an acceptable level of pain as evidenced by a pain score of 0-2/10 and improvement in ability to perform activities of daily living to be achieved by 01/08/24. Pain No Patient/caregiver will teach back high risk medication side effect and precaution education Description: LTG Patient/caregiver will continue to verbalize understanding of high risk medication side effects and precautions throughout certification period. High Risk Medications No Manage discharge planning Description: Patient/caregiver will verbalize understanding of ongoing discharge plan provided related to disease management, arrangements for outpatient and/or community services, obtaining medications, supplies, and DME, as needed throughout certification period. Discharge No Patient/Caregiver Demonstrates understanding of education Description: patient and caregiver will understand educational instruction, to be achieved by 01/08/24. SURGICAL SUPPLIES STERILIZER Learning Assessment No Improve Swallowing Tolerance Description: Patient will demonstrate ability to manage the following IDDSI food texture: easy to chew(7EC) and IDDSI liquid consistency: thin(0) or secretions with no overt signs or symptoms of aspiration/dysphagia with/in 90% trials, with compensatory swallowing strategies/cues. To be achieved by 01/08/24. SURGICAL SUPPLIES STERILIZER Dysphagia Impaired Swallow Function No Dementia Cognitive Home Exercise Program Completion And Instruction 4 SURGICAL SUPPLIES STERILIZER Dementia Impaired Memory/Cognition No Dementia Memory Strategies And Cognitive Exercises 2 SURGICAL SUPPLIES STERILIZER Dementia Impaired Memory/Cognition No Improve Awareness Of Disease Process And Strategies To Deal With Dementia Related Changes Description: Patient/Caregiver will demonstrate understanding of compensatory memory strategies, orientation techniques, disease process related to possible progressive decline of cognition and memory skills and resources available with 90-100% accuracy. To be achieved by 01/08/24. SURGICAL SUPPLIES STERILIZER Dementia Impaired Memory/Cognition No Improve Voice Intensity and Quality Description: Patient will produce sentences and conversation at 72-75 dB, utilizing diaphragmatic breathing and phrasing to improve vocal intensity and quality of voice with/in 80% trials. To be achieved by 01/08/24. SURGICAL SUPPLIES STERILIZER Voice Intensity and Quality No Improve Voice Intensity Description: Patient will produce phrases, sentences, conversation and social communication at 72-75dB vocal intensity, to communicate effectively and efficiently with others in the environment and improve quality of life/independence, with/in 80% trials. SURGICAL SUPPLIES STERILIZER Voice Production LTG No Interventions Intervention Associated Problem/Goal Status Variance Visit Notes Medication Education Description: Evaluate/instruct patient/caregiver on obtaining, storing, identifying and administering ordered medications as well as keeping accurate medication list in the home and adhereing to medication schedule Problem:Medication Education Goal:Patient/caregive r will demonstrate ability to obtain, store, identify and administer ordered medications, keep accurate medication list in home, and adhere to medication schedule Completed Patient instructed on adhering to medication schedule. SURGICAL SUPPLIES STERILIZER evaluation and treatment Description: ST Referral eval and treat for Impaired swallowing, verbal expression and memory. Problem:SURGICAL SUPPLIES STERILIZER Referral Goal:Patient will be referred to additional discipline as needed Completed SPO2 Description: Notify manager recruitment Queener if pulse ox is <92% at rest. Problem:Physician Specific Parameters Goal:Patient to maintain parameters within physician-specified ranges throughout certification period Completed Instruct on individual fall risk factors and strategies to prevent falls and injuries caused by falls. Problem:Risk for Falls Goal:Manage Risk for falls Completed SURGICAL SUPPLIES STERILIZER: Patient instructed on Managing Impaired Functional Mobility: Use assistive device(s): single point cane, walker Instruct on pain and instruct on strategies to control pain Problem:Pain Goal:Manage Pain Completed patient instructed on techniques to control pain including Pharmacological measures and Non-Pharmacological measures; rest, positioning/elevation and mobility/therapeutic exercise. Opioids- educated on high risk medication Problem:High Risk Medications Goal:Patient/caregive r will teach back high risk medication side effect and precaution education Completed patient and caregiver educated on taking medication(s) as prescribed by provider. Do not stop medication or alter doses without speaking with your provider. Discuss medication effectiveness or side effect concerns with your provider and home care team. Only take opioids as prescribed, do not share your medications, and take proper precautions in storing and properly disposing of opioids once no longer needed. Possible side effects of opioid medication including sedation, decreased rate of breathing, and constipation. Report over sedation to prescribing provider and practice deep breathing techniques every hour while awake. Prevent constipation by increasing water and fiber intake, increasing activity as tolerated, and use stool softener(s) as prescribed. Antiplatelet- educated on high risk medication Problem:High Risk Medications Goal:Patient/caregive r will teach back high risk medication side effect and precaution education Completed patient educated on taking medication(s) as prescribed by provider. Do not stop medication or alter doses without speaking with your provider. Discuss medication effectiveness or side effect concerns with your provider and home care team. Discuss all medications you are taking, even [id number] medicines, with your provider and pharmacist since many drugs can interact with antiplatelet medications. If you forget to take a dose, DO NOT take a double dose. Take the missed dose as soon as possible on the same day. DO NOT take a double dose the next day to make up for the missed dose. Watch for signs of abnormal or excessive bleeding and bruising (refer to Bleeding Precautions education). Call your health care provider right away if you suspect something is wrong. Instruct on ongoing discharge plan Problem:Discharge Goal:Manage discharge planning Completed Ongoing Discharge plan: Discharge plan discussed with patient including frequency and duration for home ST and plan for transition to: caregiver assistance. Assessment of patient/caregiver knowledge deficit and educational instruction Problem:SURGICAL SUPPLIES STERILIZER Learning Assessment Goal:Patient/Caregive r Demonstrates understanding of education Completed Education methods include: verbal cues, tactile cues, written instructions, visual cues and teach back. Further education required to improve knowledge and compliance with dysphagia, diet consistency/texture management, aspiration precautions, home safety awareness, functional cognitive and home exercise program. Dysphagia therapy modification of food/liquids disease process education Problem:SURGICAL SUPPLIES STERILIZER Dysphagia Impaired Swallow Function Goal:Improve Swallowing Tolerance Completed Patient/caregiver instructed on IDDSI food texture soft and bite sized(6) and IDDSI liquid consistency thin(0) or secretions and provided education on preparation of appropriate diet texture. SURGICAL SUPPLIES STERILIZER presented PO trials with thin consistency and patient tolerated with/in 5/5 trials, with compensatory swallowing strategies/cues. Patient/Caregiver verbalize understanding of dysphagia home program at 60% accuracy. Cognitive Home Exercise Program Completion and Instruction Problem:SURGICAL SUPPLIES STERILIZER Dementia Impaired Memory/Cognition Goal:Dementia Cognitive Home Exercise Program Completion And Instruction 4 Completed Instructed patient/caregiver on cognitive-linguistic home exercise program to improve memory for daily living tasks to improve basic social, emotional and safety needs and problem solving with minimal cueing with/in 70% opportunities. Memory Strategies and Cognitive Exercises Problem:SURGICAL SUPPLIES STERILIZER Dementia Impaired Memory/Cognition Goal:Dementia Memory Strategies And Cognitive Exercises 2 Completed Instructed patient/caregiver to use of compensatory memory strategies daily schedule, repetition, writing and visual cues to improve patient ability to recall information within the home environment/decrease challenging behaviors with minimal cueing with /in 70% trials. Instructed patient/caregiver to use daily routine/schedule for morning, evening and medications within the home environment/decrease challenging behaviors with minimal cueing with /in 2/4 accuracy/trials/opport unities. Instructed patient/caregiver to complete cognitive stimulation exercises/activites daily with minimal cueing with /in 3/4 accuracy/trials/opport unities. SURGICAL SUPPLIES STERILIZER instructed caregiver to complete similar exercise to set up home exercise program. Memory Strategies and Cognitive Exercises Problem:SURGICAL SUPPLIES STERILIZER Dementia Impaired Memory/Cognition Goal:Improve Awareness Of Disease Process And Strategies To Deal With Dementia Related Changes Completed Instructed patient/caregiver on use of: compensatory memory strategies and orientation techniques, and is able to demonstrate with 3/5 accuracy. Voice Exercies Phonation Breath Support Problem:SURGICAL SUPPLIES STERILIZER Voice Intensity and Quality Goal:Improve Voice Intensity and Quality Completed Instructed patient on completion of sustained phonation, coordination of breath and voice, gliding ascending and descending, vocal adduction exercises, loudness variation and decreases in pitch, to improve vocal intensity with/in 50% trials. Voice Exercises Phonation Breath Support Problem:SURGICAL SUPPLIES STERILIZER Voice Production LTG Goal:Improve Voice Intensity Completed Instructed patient on completion of diaphragmatic breathing, sustained phonation, coordination of breath and voice, gliding ascending and descending, vocal adduction exercises, loudness variation and decreases in pitch, to improve vocal intensity with/in 50% trials [facility] Visit Details Visit Type -PATHOLOGY TEACHER ROUTINE Discipline -Physical Therapy Problems Problem Description Start Date Status Goals Interve ntions Medication Education Disciplines: Skilled Services 11/10/2023 Active 1 goal linked to scheduled/document ed intervention 1 goal intervention scheduled/document ed in this visit Sepsis Disciplines: Skilled Services 11/10/2023 Active 1 goal linked to scheduled/document ed intervention 1 goal intervention scheduled/document ed in this visit Physician Specific Parameters Disciplines: Skilled Services 11/10/2023 Active 1 goal linked to scheduled/document ed intervention 1 goal intervention scheduled/document ed in this visit Risk for Falls Disciplines: Skilled Services 11/10/2023 Active 1 goal linked to scheduled/document ed intervention 1 goal intervention scheduled/document ed in this visit Pain Disciplines: Skilled Services 11/10/2023 Active 1 goal linked to scheduled/document ed intervention 1 goal intervention scheduled/document ed in this visit Discharge Disciplines: Skilled Services 11/10/2023 Active 1 goal linked to scheduled/document ed intervention 1 goal intervention scheduled/document ed in this visit PT Impaired muscle performance and/or ROM Disciplines: PT 11/10/2023 Active 1 goal linked to scheduled/document ed intervention 1 goal intervention scheduled/document ed in this visit PT Impaired gait Disciplines: PT 11/10/2023 Active 1 goal linked to scheduled/document ed intervention 1 goal intervention scheduled/document ed in this visit PT Impaired balance Disciplines: PT 11/10/2023 Active 1 goal linked to scheduled/document ed intervention 1 goal intervention scheduled/document ed in this visit PT Learning Assessment Disciplines: PT 11/10/2023 Active 1 goal linked to scheduled/document ed intervention 1 goal intervention scheduled/document ed in this visit Goals Goal Associated Problem Outcome Goal Met? Visit Notes Patient/caregiver will demonstrate ability to obtain, store, identify and administer ordered medications, keep accurate medication list in home, and adhere to medication schedule Description: Patient/caregiver will demonstrate ability to obtain, store, identify and administer ordered medications, keep accurate medication list in home, and adhere to medication schedule by 01/08/24. Medication Education No Patient/caregiver will be able to identify and report symptoms of sepsis Description: Patient/caregiver will be able to identify signs/symptoms of sepsis infection and will verbalize actions to take if suspected by 01/08/24. Sepsis No Patient to maintain parameters within physician-specified ranges throughout certification period Physician Specific Parameters No Manage Risk for falls Description: Patient/caregiver will verbalize knowledge of individualized fall prevention strategies by 12/09/23. Risk for Falls No Manage Pain Description: Patient/caregiver will verbalize knowledge and understanding of appropriate techniques to control pain, including non-pharmacological techniques. Patient will verbalize or demonstrate an acceptable level of pain as evidenced by a pain score of 0-2/10 and improvement in ability to perform activities of daily living to be achieved by 01/08/24. Pain No Manage discharge planning Description: Patient/caregiver will verbalize understanding of ongoing discharge plan provided related to disease management, arrangements for outpatient and/or community services, obtaining medications, supplies, and DME, as needed throughout certification period. Discharge No Improved Muscle Performance and/or ROM Description: LTG: Patient will demonstrate improved muscle performance to meet functional goals as evidenced by ability to tolerate 8 mins activity, to be achieved by 12/09/23. LTG: Patient and/or caregiver will verbalize/demonstrate independence with home exercise program, to improve functional mobility, to be achieved by 12/09/23. PT Impaired muscle performance and/or ROM No Improved Gait Description: LTG: Patient will demonstrate improved gait ability as evidenced by ambulation 200 feet with single point cane independently with AD, to return to safe household ambulation, in order to reach car in the driveway, to be achieved by 12/09/23. PT Impaired gait No Improved Balance Description: LTG: Patient will demonstrate improved standing balance to meet functional goals as evidenced by no falls during home P.T. to be achieved by 12/09/23. PT Impaired balance No Demonstrate understanding of education Description: Patient and/or caregiver will understand educational instruction to be achieved by 12/09/23. PT Learning Assessment No Interventions Intervention Associated Problem/Goal Status Variance Visit Notes Medication Education Description: Evaluate/instruct patient/caregiver on obtaining, storing, identifying and administering ordered medications as well as keeping accurate medication list in the home and adhereing to medication schedule Problem:Medication Education Goal:Patient/caregive r will demonstrate ability to obtain, store, identify and administer ordered medications, keep accurate medication list in home, and adhere to medication schedule Completed Patient instructed on importance of keeping accurate medication list in home. Risk of Sepsis Description: Patient is at risk for sepsis. Monitor closely for s/s of sepsis. Problem:Sepsis Goal:Patient/caregive r will be able to identify and report symptoms of sepsis Completed SPO2 Description: Notify manager recruitment Queener if pulse ox is <92% at rest. Problem:Physician Specific Parameters Goal:Patient to maintain parameters within physician-specified ranges throughout certification period Completed Instruct on individual fall risk factors and strategies to prevent falls and injuries caused by falls. Problem:Risk for Falls Goal:Manage Risk for falls Completed PT: Patient instructed on Eliminating Environmental Hazards: Keep pathways clear Instruct on pain and instruct on strategies to control pain Problem:Pain Goal:Manage Pain Completed patient instructed on techniques to control pain including Pharmacological measures and Non-Pharmacological measures; rest. Instruct on ongoing discharge plan Problem:Discharge Goal:Manage discharge planning Completed Ongoing Discharge plan: Discharge plan discussed with patient including frequency and duration for home PT and plan for transition to: live independently at home without ongoing services. Physical Therapy Therapeutic Exercises Problem:PT Impaired muscle performance and/or ROM Goal:Improved Muscle Performance and/or ROM Completed patient instructed on strengthening exercises including seated laq, alt marches, heel toe raises, standing heel raises, hams curls and march x's 10 each. yellow tband paulette and unil rows x's 10 each with verbal and visual cues for form. patient instructed to perform home exercise program daily which included above ex. Physical Therapy Gait Training Problem:PT Impaired gait Goal:Improved Gait Completed Gait training and instruction to patient on safe ambulation with single point cane for 2x's 10 and x's 30 feet with supervision, with verbal cues for corrections of gait deviations including posture and pace. Physical Therapy Balance Training Problem:PT Impaired balance Goal:Improved Balance Completed Developed, implemented, and instructed patient on standing balance exercises including step overs w/ww 4cones x's 4. Instruct and educate on knowledge deficits Problem:PT Learning Assessment Goal:Demonstrate understanding of education Completed patient verbalize and/or demonstrate understanding of physical therapy education including home exercise program. Education methods include: verbal cues. Further education required to improve knowledge and compliance with home exercise program. [facility] Visit Details Visit Type -PATHOLOGY TEACHER ROUTINE Discipline -Physical Therapy Problems Problem Description Start Date Status Goals Interve ntions Medication Education Disciplines: Skilled Services 11/10/2023 Active 1 goal linked to scheduled/document ed intervention 1 goal intervention scheduled/document ed in this visit Sepsis Disciplines: Skilled Services 11/10/2023 Active 1 goal linked to scheduled/document ed intervention 1 goal intervention scheduled/document ed in this visit Physician Specific Parameters Disciplines: Skilled Services 11/10/2023 Active 1 goal linked to scheduled/document ed intervention 1 goal intervention scheduled/document ed in this visit Risk for Falls Disciplines: Skilled Services 11/10/2023 Active 1 goal linked to scheduled/document ed intervention 1 goal intervention scheduled/document ed in this visit Pain Disciplines: Skilled Services 11/10/2023 Active 1 goal linked to scheduled/document ed intervention 1 goal intervention scheduled/document ed in this visit Discharge Disciplines: Skilled Services 11/10/2023 Active 1 goal linked to scheduled/document ed intervention 2 goal interventions scheduled/document ed in this visit PT Impaired muscle performance and/or ROM Disciplines: PT 11/10/2023 Active 1 goal linked to scheduled/document ed intervention 1 goal intervention scheduled/document ed in this visit PT Impaired mobility Disciplines: PT 11/10/2023 Active 2 goals linked to scheduled/document ed interventions 2 goal interventions scheduled/document ed in this visit PT Impaired gait Disciplines: PT 11/10/2023 Active 1 goal linked to scheduled/document ed intervention 1 goal intervention scheduled/document ed in this visit PT Impaired balance Disciplines: PT 11/10/2023 Active 1 goal linked to scheduled/document ed intervention 1 goal intervention scheduled/document ed in this visit PT Learning Assessment Disciplines: PT 11/10/2023 Active 1 goal linked to scheduled/document ed intervention 1 goal intervention scheduled/document ed in this visit Goals Goal Associated Problem Outcome Goal Met? Visit Notes Patient/caregiver will demonstrate ability to obtain, store, identify and administer ordered medications, keep accurate medication list in home, and adhere to medication schedule Description: Patient/caregiver will demonstrate ability to obtain, store, identify and administer ordered medications, keep accurate medication list in home, and adhere to medication schedule by 01/08/24. Medication Education No Patient/caregiver will be able to identify and report symptoms of sepsis Description: Patient/caregiver will be able to identify signs/symptoms of sepsis infection and will verbalize actions to take if suspected by 01/08/24. Sepsis No Patient to maintain parameters within physician-specified ranges throughout certification period Physician Specific Parameters No Manage Risk for falls Description: Patient/caregiver will verbalize knowledge of individualized fall prevention strategies by 12/09/23. Risk for Falls No Manage Pain Description: Patient/caregiver will verbalize knowledge and understanding of appropriate techniques to control pain, including non-pharmacological techniques. Patient will verbalize or demonstrate an acceptable level of pain as evidenced by a pain score of 0-2/10 and improvement in ability to perform activities of daily living to be achieved by 01/08/24. Pain No Manage discharge planning Description: Patient/caregiver will verbalize understanding of ongoing discharge plan provided related to disease management, arrangements for outpatient and/or community services, obtaining medications, supplies, and DME, as needed throughout certification period. Discharge No Improved Muscle Performance and/or ROM Description: LTG: Patient will demonstrate improved muscle performance to meet functional goals as evidenced by ability to tolerate 8 mins activity, to be achieved by 12/09/23. LTG: Patient and/or caregiver will verbalize/demonstrate independence with home exercise program, to improve functional mobility, to be achieved by 12/09/23. PT Impaired muscle performance and/or ROM No Improved Transfers Description: LTG: Patient will demonstrate safe transfers to/from bed, chair and toilet independently with AD, to be achieved by 12/09/23. PT Impaired mobility No Improved Bed Mobility Description: STG: Patient will demonstrate improved ability to position self independently to be achieved by 12/02/23. PT Impaired mobility No Improved Gait Description: LTG: Patient will demonstrate improved gait ability as evidenced by ambulation 200 feet with single point cane independently with AD, to return to safe household ambulation, in order to reach car in the driveway, to be achieved by 12/09/23. PT Impaired gait No Improved Balance Description: LTG: Patient will demonstrate improved standing balance to meet functional goals as evidenced by no falls during home P.T. to be achieved by 12/09/23. PT Impaired balance No Demonstrate understanding of education Description: Patient and/or caregiver will understand educational instruction to be achieved by 12/09/23. PT Learning Assessment No Interventions Intervention Associated Problem/Goal Status Variance Visit Notes Medication Education Description: Evaluate/instruct patient/caregiver on obtaining, storing, identifying and administering ordered medications as well as keeping accurate medication list in the home and adhereing to medication schedule Problem:Medication Education Goal:Patient/caregiv er will demonstrate ability to obtain, store, identify and administer ordered medications, keep accurate medication list in home, and adhere to medication schedule Completed Patient instructed on adhering to medication schedule. Risk of Sepsis Description: Patient is at risk for sepsis. Monitor closely for s/s of sepsis. Problem:Sepsis Goal:Patient/caregiv er will be able to identify and report symptoms of sepsis Completed SPO2 Description: Notify manager recruitment Queener if pulse ox is <92% at rest. Problem:Physician Specific Parameters Goal:Patient to maintain parameters within physician-specified ranges throughout certification period Completed Instruct on individual fall risk factors and strategies to prevent falls and injuries caused by falls. Problem:Risk for Falls Goal:Manage Risk for falls Completed PT: Patient instructed on Eliminating Environmental Hazards: Keep pathways clear Instruct on pain and instruct on strategies to control pain Problem:Pain Goal:Manage Pain Completed patient instructed on techniques to control pain including Non-Pharmacological measures; rest and mobility/therapeuti c exercise. Instruct on ongoing discharge plan Problem:Discharge Goal:Manage discharge planning Completed Ongoing Discharge plan: Discharge plan discussed with patient including frequency and duration for home PT and plan for transition to: live independently at home without ongoing services. Deliver [facility] Problem:Discharge Goal:Manage discharge planning Other (specify reason) Speech therapy still active Physical Therapy Therapeutic Exercises Problem:PT Impaired muscle performance and/or ROM Goal:Improved Muscle Performance and/or ROM Completed patient instructed on strengthening exercises including seated faq, hip flexion and heel toe raises , stamding heel raises, hams curls x's 10 with verbal cues for posture. patient instructed to perform home exercise program daily which included above ex. Physical Therapy Transfer Training Problem:PT Impaired mobility Goal:Improved Transfers Completed Transfer training and instruction to patient on safe transfers to and from chair with independent Physical Therapy Bed Mobility Training Problem:PT Impaired mobility Goal:Improved Bed Mobility Other (specify reason) patient sleeping in chair Physical Therapy Gait Training Problem:PT Impaired gait Goal:Improved Gait Completed Gait training and instruction to patient on safe ambulation with single point cane for 2x's 40 feet with supervision, with verbal cues for corrections of gait deviations including posture and pace . Physical Therapy Balance Training Problem:PT Impaired balance Goal:Improved Balance Completed Developed, implemented, and instructed patient on standing balance exercises including standing exercises. Instruct and educate on knowledge deficits Problem:PT Learning Assessment Goal:Demonstrate understanding of education Completed patient verbalize and/or demonstrate understanding of physical therapy education including home exercise program. Education methods include: verbal cues and visual cues. Further education required to improve knowledge and compliance with home exercise program. [facility] Visit Details Visit Type -PT DISC DC W VIS IT Discipline -Physical Therapy Problems Problem Description Start Date Status Goals Interve ntions Sepsis Disciplines: Skilled Services 11/10/2023 Active 1 goal linked to scheduled/document ed intervention 1 goal intervention scheduled/document ed in this visit Physician Specific Parameters Disciplines: Skilled Services 11/10/2023 Active 1 goal linked to scheduled/document ed intervention 1 goal intervention scheduled/document ed in this visit Risk for Falls Disciplines: Skilled Services 11/10/2023 Active 1 goal linked to scheduled/document ed intervention 1 goal intervention scheduled/document ed in this visit Pain Disciplines: Skilled Services 11/10/2023 Active 1 goal linked to scheduled/document ed intervention 1 goal intervention scheduled/document ed in this visit PT Impaired muscle performance and/or ROM Disciplines: PT 11/10/2023 Resolved on 12/04/2023 1 goal linked to scheduled/document ed intervention 1 goal intervention scheduled/document ed in this visit PT Impaired mobility Disciplines: PT 11/10/2023 Resolved on 12/04/2023 2 goals linked to scheduled/document ed interventions 2 goal interventions scheduled/document ed in this visit PT Impaired gait Disciplines: PT 11/10/2023 Resolved on 12/04/2023 2 goals linked to scheduled/document ed interventions 2 goal interventions scheduled/document ed in this visit PT Impaired balance Disciplines: PT 11/10/2023 Resolved on 12/04/2023 1 goal linked to scheduled/document ed intervention 1 goal intervention scheduled/document ed in this visit PT Neurologic Condition Disciplines: PT 11/10/2023 Resolved on 12/04/2023 1 goal linked to scheduled/document ed intervention 1 goal intervention scheduled/document ed in this visit PT Learning Assessment Disciplines: PT 11/10/2023 Resolved on 12/04/2023 1 goal linked to scheduled/document ed intervention 1 goal intervention scheduled/document ed in this visit Goals Goal Associated Problem Outcome Goal Met? Visit Notes Patient/caregiver will be able to identify and report symptoms of sepsis Description: Patient/caregiver will be able to identify signs/symptoms of sepsis infection and will verbalize actions to take if suspected by 01/08/24. Sepsis No Patient to maintain parameters within physician-specified ranges throughout certification period Physician Specific Parameters No Manage Risk for falls Description: Patient/caregiver will verbalize knowledge of individualized fall prevention strategies by 12/09/23. Risk for Falls No Manage Pain Description: Patient/caregiver will verbalize knowledge and understanding of appropriate techniques to control pain, including non-pharmacological techniques. Patient will verbalize or demonstrate an acceptable level of pain as evidenced by a pain score of 0-2/10 and improvement in ability to perform activities of daily living to be achieved by 01/08/24. Pain No Improved Muscle Performance and/or ROM Description: LTG: Patient will demonstrate improved muscle performance to meet functional goals as evidenced by ability to tolerate 8 mins activity, to be achieved by 12/09/23. LTG: Patient and/or caregiver will verbalize/demonstrate independence with home exercise program, to improve functional mobility, to be achieved by 12/09/23. PT Impaired muscle performance and/or ROM Completed Yes Improved Transfers Description: LTG: Patient will demonstrate safe transfers to/from bed, chair and toilet independently with AD, to be achieved by 12/09/23. PT Impaired mobility Completed Yes Improved Bed Mobility Description: STG: Patient will demonstrate improved ability to position self independently to be achieved by 12/02/23. PT Impaired mobility Completed Yes Improved Stair Climbing Description: LTG: Patient will demonstrate improved stair negotiation as evidenced by ascend/descend 3 steps without railing independently, to safely exit home, to be achieved by 12/09/23. PT Impaired gait Completed Yes Improved Gait Description: LTG: Patient will demonstrate improved gait ability as evidenced by ambulation 200 feet with single point cane independently with AD, to return to safe household ambulation, in order to reach car in the driveway, to be achieved by 12/09/23. PT Impaired gait Completed Yes Improved Balance Description: LTG: Patient will demonstrate improved standing balance to meet functional goals as evidenced by no falls during home P.T. to be achieved by 12/09/23. PT Impaired balance Completed Yes Manage Neurologic Condition Description: Improve patient and/or caregiver understanding of post surgical and/or non-surgical neurologic intervention management as evidenced by patient and/or caregiver able to verbalize, demonstrate, and teach back instruction, to be achieved by 12/09/23. PT Neurologic Condition Completed Yes Demonstrate understanding of education Description: Patient and/or caregiver will understand educational instruction to be achieved by 12/09/23. PT Learning Assessment Completed Yes Interventions Intervention Associated Problem/Goal Status Variance Visit Notes Risk of Sepsis Description: Patient is at risk for sepsis. Monitor closely for s/s of sepsis. Problem:Sepsis Goal:Patient/caregive r will be able to identify and report symptoms of sepsis Completed SPO2 Description: Notify manager recruitment Queener if pulse ox is <92% at rest. Problem:Physician Specific Parameters Goal:Patient to maintain parameters within physician-specified ranges throughout certification period Completed Instruct on individual fall risk factors and strategies to prevent falls and injuries caused by falls. Problem:Risk for Falls Goal:Manage Risk for falls Completed PT: Patient instructed on Eliminating Environmental Hazards: Keep pathways clear, Remove unsafe rugs, Move furniture from pathways, Keep rooms and walkways well lit and Wear supportive shoes or non-skid socks Managing Impaired Functional Mobility: Use assistive device(s): front wheeled walker and single point cane Managing Pain Instruct on pain and instruct on strategies to control pain Problem:Pain Goal:Manage Pain Completed patient instructed on techniques to control pain including Pharmacological measures and Non-Pharmacological measures; rest, positioning/elevation and use of thermal modalities, apply ice to affected area . Physical Therapy Therapeutic Exercises Problem:PT Impaired muscle performance and/or ROM Goal:Improved Muscle Performance and/or ROM Completed patient instructed on strengthening exercises including seated faq, hip flexion and heel toe raises , stamding heel raises, hams curls x's 10 with verbal cues for posture. patient instructed to perform home exercise program daily which included above ex. Physical Therapy Transfer Training Problem:PT Impaired mobility Goal:Improved Transfers Completed MIHAI transfers with safe/proper technique Physical Therapy Bed Mobility Training Problem:PT Impaired mobility Goal:Improved Bed Mobility Completed MIHAI bed mobility Physical Therapy Stair Training Problem:PT Impaired gait Goal:Improved Stair Climbing Completed up and down 2 steps with supervision and CGA to lift the walker Physical Therapy Gait Training Problem:PT Impaired gait Goal:Improved Gait Completed Indep amb wiht st cane indoors and fww outdoors. stooped posture -scoliosis x 40' Physical Therapy Balance Training Problem:PT Impaired balance Goal:Improved Balance Completed pt demonstrates improved dynamic standing balacne as evidecned by a tug of 23 Instruct on self-management of post surgical and/or non-surgical neurologic intervention Problem:PT Neurologic Condition Goal:Manage Neurologic Condition Completed patient instructed on energy conservation and instructed on when to call provider. Instruct and educate on knowledge deficits Problem:PT Learning Assessment Goal:Demonstrate understanding of education Completed patient verbalize and/or demonstrate understanding of physical therapy education including neurological disease management, fall prevention strategies, home safety, functional activity and home exercise program. Education methods include: verbal cues and written instructions. [facility] Visit Details Visit Type -SURGICAL SUPPLIES STERILIZER ROUTINE Discipline -Speech Language Pathology Problems Problem Description Start Date Status Goals Interve ntions Medication Education Disciplines: Skilled Services 11/10/2023 Active 1 goal linked to scheduled/documente d intervention 1 goal intervention scheduled/document ed in this visit Sepsis Disciplines: Skilled Services 11/10/2023 Active 1 goal linked to scheduled/documente d intervention 1 goal intervention scheduled/document ed in this visit Physician Specific Parameters Disciplines: Skilled Services 11/10/2023 Active 1 goal linked to scheduled/documente d intervention 1 goal intervention scheduled/document ed in this visit Risk for Falls Disciplines: Skilled Services 11/10/2023 Active 1 goal linked to scheduled/documente d intervention 1 goal intervention scheduled/document ed in this visit Pain Disciplines: Skilled Services 11/10/2023 Active 1 goal linked to scheduled/documente d intervention 1 goal intervention scheduled/document ed in this visit Discharge Disciplines: Skilled Services 11/10/2023 Active 1 goal linked to scheduled/documente d intervention 1 goal intervention scheduled/document ed in this visit SURGICAL SUPPLIES STERILIZER Learning Assessment Disciplines: SURGICAL SUPPLIES STERILIZER 11/15/2023 Active 1 goal linked to scheduled/documente d intervention 1 goal intervention scheduled/document ed in this visit SURGICAL SUPPLIES STERILIZER Dysphagia Impaired Swallow Function Disciplines: SURGICAL SUPPLIES STERILIZER 11/15/2023 Active 2 goals linked to scheduled/documente d interventions 2 goal interventions scheduled/document ed in this visit SURGICAL SUPPLIES STERILIZER Dementia Impaired Memory/Cognition Disciplines: SURGICAL SUPPLIES STERILIZER 11/15/2023 Active 4 goals linked to scheduled/documente d interventions 4 goal interventions scheduled/document ed in this visit SURGICAL SUPPLIES STERILIZER Voice Intensity and Quality Disciplines: SURGICAL SUPPLIES STERILIZER 11/15/2023 Active 1 goal linked to scheduled/documente d intervention 1 goal intervention scheduled/document ed in this visit SURGICAL SUPPLIES STERILIZER Voice Production LTG Disciplines: SURGICAL SUPPLIES STERILIZER 11/15/2023 Active 1 goal linked to scheduled/documente d intervention 1 goal intervention scheduled/document ed in this visit Goals Goal Associated Problem Outcome Goal Met? Visit Notes Patient/caregiver will demonstrate ability to obtain, store, identify and administer ordered medications, keep accurate medication list in home, and adhere to medication schedule Description: Patient/caregiver will demonstrate ability to obtain, store, identify and administer ordered medications, keep accurate medication list in home, and adhere to medication schedule by 01/08/24. Medication Education No Patient/caregiver will be able to identify and report symptoms of sepsis Description: Patient/caregiver will be able to identify signs/symptoms of sepsis infection and will verbalize actions to take if suspected by 01/08/24. Sepsis No Patient to maintain parameters within physician-specified ranges throughout certification period Physician Specific Parameters No Manage Risk for falls Description: Patient/caregiver will verbalize knowledge of individualized fall prevention strategies by 12/09/23. Risk for Falls No Manage Pain Description: Patient/caregiver will verbalize knowledge and understanding of appropriate techniques to control pain, including non-pharmacological techniques. Patient will verbalize or demonstrate an acceptable level of pain as evidenced by a pain score of 0-2/10 and improvement in ability to perform activities of daily living to be achieved by 01/08/24. Pain No Manage discharge planning Description: Patient/caregiver will verbalize understanding of ongoing discharge plan provided related to disease management, arrangements for outpatient and/or community services, obtaining medications, supplies, and DME, as needed throughout certification period. Discharge No Patient/Caregiver Demonstrates understanding of education Description: patient and caregiver will understand educational instruction, to be achieved by 01/08/24. SURGICAL SUPPLIES STERILIZER Learning Assessment No Improve Swallowing Tolerance Description: Patient will demonstrate ability to manage the following IDDSI food texture: easy to chew(7EC) and IDDSI liquid consistency: thin(0) or secretions with no overt signs or symptoms of aspiration/dysphagia with/in 90% trials, with compensatory swallowing strategies/cues. To be achieved by 01/08/24. SURGICAL SUPPLIES STERILIZER Dysphagia Impaired Swallow Function No Improve Swallow Function SURGICAL SUPPLIES STERILIZER Dysphagia Impaired Swallow Function No Dementia Cognitive Home Exercise Program Completion And Instruction 4 SURGICAL SUPPLIES STERILIZER Dementia Impaired Memory/Cognition No Dementia Memory Strategies And Cognitive Exercises 2 SURGICAL SUPPLIES STERILIZER Dementia Impaired Memory/Cognition No Dementia Impaired Cognition 1 SURGICAL SUPPLIES STERILIZER Dementia Impaired Memory/Cognition No Improve Awareness Of Disease Process And Strategies To Deal With Dementia Related Changes Description: Patient/Caregiver will demonstrate understanding of compensatory memory strategies, orientation techniques, disease process related to possible progressive decline of cognition and memory skills and resources available with 90-100% accuracy. To be achieved by 01/08/24. SURGICAL SUPPLIES STERILIZER Dementia Impaired Memory/Cognition No Improve Voice Intensity and Quality Description: Patient will produce sentences and conversation at 72-75 dB, utilizing diaphragmatic breathing and phrasing to improve vocal intensity and quality of voice with/in 80% trials. To be achieved by 01/08/24. SURGICAL SUPPLIES STERILIZER Voice Intensity and Quality No Improve Voice Intensity Description: Patient will produce phrases, sentences, conversation and social communication at 72-75dB vocal intensity, to communicate effectively and efficiently with others in the environment and improve quality of life/independence, with/in 80% trials. SURGICAL SUPPLIES STERILIZER Voice Production LTG No Interventions Intervention Associated Problem/Goal Status Variance Visit Notes Medication Education Description: Evaluate/instruct patient/caregiver on obtaining, storing, identifying and administering ordered medications as well as keeping accurate medication list in the home and adhereing to medication schedule Problem:Medication Education Goal:Patient/caregive r will demonstrate ability to obtain, store, identify and administer ordered medications, keep accurate medication list in home, and adhere to medication schedule Completed Patient instructed on adhering to medication schedule. Risk of Sepsis Description: Patient is at risk for sepsis. Monitor closely for s/s of sepsis. Problem:Sepsis Goal:Patient/caregive r will be able to identify and report symptoms of sepsis Completed SPO2 Description: Notify manager recruitment Queener if pulse ox is <92% at rest. Problem:Physician Specific Parameters Goal:Patient to maintain parameters within physician-specified ranges throughout certification period Completed Instruct on individual fall risk factors and strategies to prevent falls and injuries caused by falls. Problem:Risk for Falls Goal:Manage Risk for falls Completed SURGICAL SUPPLIES STERILIZER: Patient instructed on Managing Impaired Functional Mobility: Use assistive device(s): front wheeled walker and single point cane. Instruct on pain and instruct on strategies to control pain Problem:Pain Goal:Manage Pain Completed patient instructed on techniques to control pain including Pharmacological measures and Non-Pharmacological measures; rest, positioning/elevation and breathing/relaxation. Instruct on ongoing discharge plan Problem:Discharge Goal:Manage discharge planning Completed Ongoing Discharge plan: Discharge plan discussed with patient including frequency and duration for home ST and plan for transition to: caregiver assistance. Assessment of patient/caregiver knowledge deficit and educational instruction Problem:SURGICAL SUPPLIES STERILIZER Learning Assessment Goal:Patient/Caregive r Demonstrates understanding of education Completed Education methods include: verbal cues, written instructions, visual cues and teach back. Further education required to improve knowledge and compliance with dysphagia, aspiration precautions, functional cognitive, functional communication strategies and home exercise program. Dysphagia therapy modification of food/liquids disease process education Problem:SURGICAL SUPPLIES STERILIZER Dysphagia Impaired Swallow Function Goal:Improve Swallowing Tolerance Completed Patient/caregiver instructed on IDDSI food texture soft and bite sized(6) and IDDSI liquid consistency thin(0) or secretions and provided education on preparation of appropriate diet texture. SURGICAL SUPPLIES STERILIZER presented PO trials with thin texture/consistency and patient tolerated with/in 75% trials, with compensatory swallowing strategies/cues. Patient/Caregiver verbalize understanding of dysphagia home program at 75% accuracy. Compensatory strategies disease process education Description: Patient/caregiver will demonstrate understanding of disease process related to dysphagia: signs/symptoms of aspiration, rationale for diet modifications, anatomy of swallowing mechanism, use of anatomical diagrams for education related to swallowing mechanism and safe swallow strategy use with/in 90% trials. To be achieved by 12/09/23. Problem:SURGICAL SUPPLIES STERILIZER Dysphagia Impaired Swallow Function Goal:Improve Swallow Function Completed Patient/caregiver cued and re-educated on signs and symptoms of dysphagia: coughing or choking while eating or drinking, wet vocal quality post swallow, weight loss, recent pneumonia and inability to chew specific foods; results of MBS/FEES; rationale for diet modifications; good oral hygiene; swallow strategies to reduce aspiration risks small bites, small sips, slow rate of intake, alternate liquids with solids, double swallow and throat clear and re-swallow with/in 75% opportunities. Cognitive Home Exercise Program Completion and Instruction Problem:SURGICAL SUPPLIES STERILIZER Dementia Impaired Memory/Cognition Goal:Dementia Cognitive Home Exercise Program Completion And Instruction 4 Completed Instructed patient/caregiver on cognitive-linguistic home exercise program to improve memory for daily living tasks to improve basic social, emotional and safety needs and executive function skills with moderate cueing with/in 3/5 opportunities. Memory Strategies and Cognitive Exercises Problem:SURGICAL SUPPLIES STERILIZER Dementia Impaired Memory/Cognition Goal:Dementia Memory Strategies And Cognitive Exercises 2 Completed Instructed patient/caregiver to use of compensatory memory strategies memory notebook, daily schedule, cue cards, association, repetition, writing and visual cues to improve patient ability to recall information within the home environment/decrease challenging behaviors with minimal cueing with /in 70% opportunities. Instructed patient/caregiver to use daily routine/schedule for morning, evening and medications within the home environment/decrease challenging behaviors with minimal cueing with /in 1/2 accuracy/trials/opport unities. Instructed patient/caregiver to complete cognitive stimulation exercises/activites daily with moderate cueing with /in 70% accuracy/trials/opport unities. SURGICAL SUPPLIES STERILIZER instructed caregiver to complete similar exercise to set up home exercise program. Cognitive Exercise Problem:SURGICAL SUPPLIES STERILIZER Dementia Impaired Memory/Cognition Goal:Dementia Impaired Cognition 1 Completed SURGICAL SUPPLIES STERILIZER Instructed patient/caregiver on safety awareness related to memory loss and need for visual cues for managing medications, completing ADL tasks and completing IADL tasks for maximum safety in the home environment. Memory Strategies and Cognitive Exercises Problem:SURGICAL SUPPLIES STERILIZER Dementia Impaired Memory/Cognition Goal:Improve Awareness Of Disease Process And Strategies To Deal With Dementia Related Changes Completed Instructed patient/caregiver on use of: compensatory memory strategies, and is able to demonstrate with 70% accuracy. Voice Exercies Phonation Breath Support Problem:SURGICAL SUPPLIES STERILIZER Voice Intensity and Quality Goal:Improve Voice Intensity and Quality Completed Instructed patient on completion of diaphragmatic breathing, sustained phonation, coordination of breath and voice, gliding ascending and descending, loudness variation and decreases in pitch, to improve vocal intensity with/in 65% trials. Voice Exercises Phonation Breath Support Problem:SURGICAL SUPPLIES STERILIZER Voice Production LTG Goal:Improve Voice Intensity Completed Instructed patient on completion of diaphragmatic breathing, phrasing, sustained phonation, coordination of breath and voice, gliding ascending and descending, loudness variation and decreases in pitch, to improve vocal intensity with/in 65% trials documented in this encounter [facility] home Plan of care note* Visit Details Visit Type -SURGICAL SUPPLIES STERILIZER ROUTINE Discipline -Speech Language Pathology Problems Problem Description Start Date Status Goals Interve ntions Medication Education Disciplines: Skilled Services 11/10/2023 Active 1 goal linked to scheduled/documente d intervention 1 goal intervention scheduled/document ed in this visit Sepsis Disciplines: Skilled Services 11/10/2023 Active 1 goal linked to scheduled/documente d intervention 1 goal intervention scheduled/document ed in this visit Physician Specific Parameters Disciplines: Skilled Services 11/10/2023 Active 1 goal linked to scheduled/documente d intervention 1 goal intervention scheduled/document ed in this visit Risk for Falls Disciplines: Skilled Services 11/10/2023 Active 1 goal linked to scheduled/documente d intervention 1 goal intervention scheduled/document ed in this visit Pain Disciplines: Skilled Services 11/10/2023 Active 1 goal linked to scheduled/documente d intervention 1 goal intervention scheduled/document ed in this visit Discharge Disciplines: Skilled Services 11/10/2023 Active 1 goal linked to scheduled/documente d intervention 2 goal interventions scheduled/document ed in this visit SURGICAL SUPPLIES STERILIZER Learning Assessment Disciplines: SURGICAL SUPPLIES STERILIZER 11/15/2023 Active 1 goal linked to scheduled/documente d intervention 1 goal intervention scheduled/document ed in this visit SURGICAL SUPPLIES STERILIZER Dysphagia Impaired Swallow Function Disciplines: SURGICAL SUPPLIES STERILIZER 11/15/2023 Active 2 goals linked to scheduled/documente d interventions 2 goal interventions scheduled/document ed in this visit SURGICAL SUPPLIES STERILIZER Dementia Impaired Memory/Cognition Disciplines: SURGICAL SUPPLIES STERILIZER 11/15/2023 Active 3 goals linked to scheduled/documente d interventions 3 goal interventions scheduled/document ed in this visit SURGICAL SUPPLIES STERILIZER Voice Intensity and Quality Disciplines: SURGICAL SUPPLIES STERILIZER 11/15/2023 Active 1 goal linked to scheduled/documente d intervention 1 goal intervention scheduled/document ed in this visit SURGICAL SUPPLIES STERILIZER Voice Production LTG Disciplines: SURGICAL SUPPLIES STERILIZER 11/15/2023 Active 1 goal linked to scheduled/documente d intervention 1 goal intervention scheduled/document ed in this visit Goals Goal Associated Problem Outcome Goal Met? Visit Notes Patient/caregiver will demonstrate ability to obtain, store, identify and administer ordered medications, keep accurate medication list in home, and adhere to medication schedule Description: Patient/caregiver will demonstrate ability to obtain, store, identify and administer ordered medications, keep accurate medication list in home, and adhere to medication schedule by 01/08/24. Medication Education No Patient/caregiver will be able to identify and report symptoms of sepsis Description: Patient/caregiver will be able to identify signs/symptoms of sepsis infection and will verbalize actions to take if suspected by 01/08/24. Sepsis No Patient to maintain parameters within physician-specified ranges throughout certification period Physician Specific Parameters No Manage Risk for falls Description: Patient/caregiver will verbalize knowledge of individualized fall prevention strategies by 12/09/23. Risk for Falls No Manage Pain Description: Patient/caregiver will verbalize knowledge and understanding of appropriate techniques to control pain, including non-pharmacological techniques. Patient will verbalize or demonstrate an acceptable level of pain as evidenced by a pain score of 0-2/10 and improvement in ability to perform activities of daily living to be achieved by 01/08/24. Pain No Manage discharge planning Description: Patient/caregiver will verbalize understanding of ongoing discharge plan provided related to disease management, arrangements for outpatient and/or community services, obtaining medications, supplies, and DME, as needed throughout certification period. Discharge No Patient/Caregiver Demonstrates understanding of education Description: patient and caregiver will understand educational instruction, to be achieved by 01/08/24. SURGICAL SUPPLIES STERILIZER Learning Assessment No Improve Swallowing Tolerance Description: Patient will demonstrate ability to manage the following IDDSI food texture: easy to chew(7EC) and IDDSI liquid consistency: thin(0) or secretions with no overt signs or symptoms of aspiration/dysphagia with/in 90% trials, with compensatory swallowing strategies/cues. To be achieved by 01/08/24. SURGICAL SUPPLIES STERILIZER Dysphagia Impaired Swallow Function No Improve Swallow Function SURGICAL SUPPLIES STERILIZER Dysphagia Impaired Swallow Function No Dementia Cognitive Home Exercise Program Completion And Instruction 4 SURGICAL SUPPLIES STERILIZER Dementia Impaired Memory/Cognition No Dementia Memory Strategies And Cognitive Exercises 2 SURGICAL SUPPLIES STERILIZER Dementia Impaired Memory/Cognition No Dementia Impaired Cognition 1 SURGICAL SUPPLIES STERILIZER Dementia Impaired Memory/Cognition No Improve Voice Intensity and Quality Description: Patient will produce sentences and conversation at 72-75 dB, utilizing diaphragmatic breathing and phrasing to improve vocal intensity and quality of voice with/in 80% trials. To be achieved by 01/08/24. SURGICAL SUPPLIES STERILIZER Voice Intensity and Quality No Improve Voice Intensity Description: Patient will produce phrases, sentences, conversation and social communication at 72-75dB vocal intensity, to communicate effectively and efficiently with others in the environment and improve quality of life/independence, with/in 80% trials. SURGICAL SUPPLIES STERILIZER Voice Production LTG No Interventions Intervention Associated Problem/Goal Status Variance Visit Notes Medication Education Description: Evaluate/instruct patient/caregiver on obtaining, storing, identifying and administering ordered medications as well as keeping accurate medication list in the home and adhereing to medication schedule Problem:Medication Education Goal:Patient/caregive r will demonstrate ability to obtain, store, identify and administer ordered medications, keep accurate medication list in home, and adhere to medication schedule Completed Patient and Caregiver instructed on adhering to medication schedule and cutting/crushing medications, taking medications with food. Risk of Sepsis Description: Patient is at risk for sepsis. Monitor closely for s/s of sepsis. Problem:Sepsis Goal:Patient/caregive r will be able to identify and report symptoms of sepsis Completed SPO2 Description: Notify manager recruitment Queener if pulse ox is <92% at rest. Problem:Physician Specific Parameters Goal:Patient to maintain parameters within physician-specified ranges throughout certification period Completed Instruct on individual fall risk factors and strategies to prevent falls and injuries caused by falls. Problem:Risk for Falls Goal:Manage Risk for falls Completed SURGICAL SUPPLIES STERILIZER: Patient instructed on Managing Impaired Functional Mobility: Use assistive device(s): front wheeled walker and single point cane and Caregiver to provide assist with: Steps and ADL/IADLs. Instruct on pain and instruct on strategies to control pain Problem:Pain Goal:Manage Pain Completed patient instructed on techniques to control pain including Pharmacological measures and Non-Pharmacological measures; rest and distraction. Deliver [facility] Problem:Discharge Goal:Manage discharge planning Completed Delivered [facility] on 12/21/23 for discharge date of 01/01/24. Instruct on ongoing discharge plan Problem:Discharge Goal:Manage discharge planning Completed Ongoing Discharge plan: Discharge plan discussed with patient including frequency and duration for home ST and plan for transition to: caregiver assistance. Assessment of patient/caregiver knowledge deficit and educational instruction Problem:SURGICAL SUPPLIES STERILIZER Learning Assessment Goal:Patient/Caregive r Demonstrates understanding of education Completed Education methods include: verbal cues and written instructions. Further education required to improve knowledge and compliance with dysphagia, diet consistency/texture management, aspiration precautions, functional cognitive and speech intelligibility strategies. Dysphagia therapy modification of food/liquids disease process education Problem:SURGICAL SUPPLIES STERILIZER Dysphagia Impaired Swallow Function Goal:Improve Swallowing Tolerance Completed Patient/caregiver instructed on IDDSI food texture soft and bite sized(6) and IDDSI liquid consistency thin(0) or secretions and provided education on preparation of appropriate diet texture. SURGICAL SUPPLIES STERILIZER presented PO trials with pureed/thin texture/consistency and patient tolerated with/in 85% trials, with compensatory swallowing strategies/cues. Patient/Caregiver verbalize understanding of dysphagia home program at 80% accuracy. Compensatory strategies disease process education Description: Patient/caregiver will demonstrate understanding of disease process related to dysphagia: signs/symptoms of aspiration, rationale for diet modifications, anatomy of swallowing mechanism, use of anatomical diagrams for education related to swallowing mechanism and safe swallow strategy use with/in 90% trials. To be achieved by 12/09/23. Problem:SURGICAL SUPPLIES STERILIZER Dysphagia Impaired Swallow Function Goal:Improve Swallow Function Completed Patient/caregiver cued and re-educated on signs and symptoms of dysphagia: coughing or choking while eating or drinking, wet vocal quality post swallow, weight loss, recent pneumonia and inability to chew specific foods; results of MBS/FEES; rationale for diet modifications; good oral hygiene; swallow strategies to reduce aspiration risks small bites, small sips, slow rate of intake, alternate liquids with solids and throat clear and re-swallow with/in 80% opportunities. Cognitive Home Exercise Program Completion and Instruction Problem:SURGICAL SUPPLIES STERILIZER Dementia Impaired Memory/Cognition Goal:Dementia Cognitive Home Exercise Program Completion And Instruction 4 Completed Instructed patient/caregiver on cognitive-linguistic home exercise program to improve memory for daily living tasks to improve basic social, emotional and safety needs, orientation, problem solving and executive function skills with minimal cueing with/in 75% opportunities. Memory Strategies and Cognitive Exercises Problem:SURGICAL SUPPLIES STERILIZER Dementia Impaired Memory/Cognition Goal:Dementia Memory Strategies And Cognitive Exercises 2 Completed Instructed patient/caregiver to use of compensatory memory strategies memory notebook, daily schedule, dry erase board, association, repetition and visual cues to improve patient ability to recall information within the home environment/decrease challenging behaviors with minimal cueing with /in 70% opportunities. Instructed patient/caregiver to use daily routine/schedule for morning, evening and medications within the home environment/decrease challenging behaviors with minimal cueing with /in 80% accuracy/trials/opport unities. Instructed patient/caregiver to complete cognitive stimulation exercises/activites 80% with minimal cueing with /in 4/5 accuracy/trials/opport unities. SURGICAL SUPPLIES STERILIZER instructed caregiver to complete similar exercise to set up home exercise program. Cognitive Exercise Problem:SURGICAL SUPPLIES STERILIZER Dementia Impaired Memory/Cognition Goal:Dementia Impaired Cognition 1 Completed SURGICAL SUPPLIES STERILIZER instructed patient/caregiver on orientation to situation and use of visual and written cues to help improve patient ability to increase interaction within the home environment/decrease challenging behaviors with minimal cueing with/in 79% trials. SURGICAL SUPPLIES STERILIZER Instructed patient/caregiver on safety awareness related to memory loss and need for supervision, visual cues for managing medications, completing ADL tasks and completing IADL tasks for maximum safety in the home environment. Voice Exercies Phonation Breath Support Problem:SURGICAL SUPPLIES STERILIZER Voice Intensity and Quality Goal:Improve Voice Intensity and Quality Completed Instructed patient on completion of sustained phonation, coordination of breath and voice, gliding ascending and descending, vocal adduction exercises, loudness variation and decreases in pitch, to improve vocal intensity with/in 65% trials. Voice Exercises Phonation Breath Support Problem:SURGICAL SUPPLIES STERILIZER Voice Production LTG Goal:Improve Voice Intensity Completed Instructed patient on completion of diaphragmatic breathing, sustained phonation, coordination of breath and voice, gliding ascending and descending, vocal adduction exercises, loudness variation and decreases in pitch, to improve vocal intensity with/in 65% trials documented in this encounter [facility]'s home Plan of care note* Visit Details Visit Type -SURGICAL SUPPLIES STERILIZER AGENCY DC W VISIT Discipline -Speech Language Pathology Problems Problem Description Start Date Status Goals Interve ntions Medication Education Disciplines: Skilled Services 11/10/2023 Resolved on 01/03/2024 1 goal linked to scheduled/document ed intervention 1 goal intervention scheduled/document ed in this visit Sepsis Disciplines: Skilled Services 11/10/2023 Resolved on 01/03/2024 1 goal linked to scheduled/document ed intervention SURGICAL SUPPLIES STERILIZER Referral Disciplines: Skilled Services 11/10/2023 Resolved on 01/03/2024 1 goal linked to scheduled/document ed intervention Physician Specific Parameters Disciplines: Skilled Services 11/10/2023 Resolved on 01/03/2024 1 goal linked to scheduled/document ed intervention 1 goal intervention scheduled/document ed in this visit Risk for Falls Disciplines: Skilled Services 11/10/2023 Resolved on 01/03/2024 1 goal linked to scheduled/document ed intervention 1 goal intervention scheduled/document ed in this visit Pain Disciplines: Skilled Services 11/10/2023 Resolved on 01/03/2024 1 goal linked to scheduled/document ed intervention 1 goal intervention scheduled/document ed in this visit High Risk Medications Disciplines: Skilled Services 11/10/2023 Resolved on 01/03/2024 1 goal linked to scheduled/document ed intervention 1 goal intervention scheduled/document ed in this visit Discharge Disciplines: Skilled Services 11/10/2023 Resolved on 01/03/2024 1 goal linked to scheduled/document ed intervention 1 goal intervention scheduled/document ed in this visit SURGICAL SUPPLIES STERILIZER Learning Assessment Disciplines: SURGICAL SUPPLIES STERILIZER 11/15/2023 Resolved on 01/03/2024 1 goal linked to scheduled/document ed intervention 1 goal intervention scheduled/document ed in this visit SURGICAL SUPPLIES STERILIZER Dysphagia Impaired Swallow Function Disciplines: SURGICAL SUPPLIES STERILIZER 11/15/2023 Resolved on 01/03/2024 2 goals linked to scheduled/document ed interventions 2 goal interventions scheduled/document ed in this visit SURGICAL SUPPLIES STERILIZER Dementia Impaired Memory/Cognition Disciplines: SURGICAL SUPPLIES STERILIZER 11/15/2023 Resolved on 01/03/2024 5 goals linked to scheduled/document ed interventions 3 goal interventions scheduled/document ed in this visit SURGICAL SUPPLIES STERILIZER Voice Intensity and Quality Disciplines: SURGICAL SUPPLIES STERILIZER 11/15/2023 Resolved on 01/03/2024 1 goal linked to scheduled/document ed intervention 1 goal intervention scheduled/document ed in this visit SURGICAL SUPPLIES STERILIZER Voice Production LTG Disciplines: SURGICAL SUPPLIES STERILIZER 11/15/2023 Resolved on 01/03/2024 1 goal linked to scheduled/document ed intervention 1 goal intervention scheduled/document ed in this visit Goals Goal Associated Problem Outcome Goal Met? Visit Notes Patient/caregiver will demonstrate ability to obtain, store, identify and administer ordered medications, keep accurate medication list in home, and adhere to medication schedule Description: Patient/caregiver will demonstrate ability to obtain, store, identify and administer ordered medications, keep accurate medication list in home, and adhere to medication schedule by 01/08/24. Medication Education Completed Yes Patient/caregiver will be able to identify and report symptoms of sepsis Description: Patient/caregiver will be able to identify signs/symptoms of sepsis infection and will verbalize actions to take if suspected by 01/08/24. Sepsis Completed Yes Goal met Patient will be referred to additional discipline as needed SURGICAL SUPPLIES STERILIZER Referral Completed Yes Patient to maintain parameters within physician-specified ranges throughout certification period Physician Specific Parameters Completed Yes Manage Risk for falls Description: Patient/caregiver will verbalize knowledge of individualized fall prevention strategies by 12/09/23. Risk for Falls Completed Yes Goal met Manage Pain Description: Patient/caregiver will verbalize knowledge and understanding of appropriate techniques to control pain, including non-pharmacological techniques. Patient will verbalize or demonstrate an acceptable level of pain as evidenced by a pain score of 0-2/10 and improvement in ability to perform activities of daily living to be achieved by 01/08/24. Pain Completed Yes Patient/caregiver will teach back high risk medication side effect and precaution education Description: LTG Patient/caregiver will continue to verbalize understanding of high risk medication side effects and precautions throughout certification period. High Risk Medications Completed Yes Manage discharge planning Description: Patient/caregiver will verbalize understanding of ongoing discharge plan provided related to disease management, arrangements for outpatient and/or community services, obtaining medications, supplies, and DME, as needed throughout certification period. Discharge Completed Yes Patient/Caregiver Demonstrates understanding of education Description: patient and caregiver will understand educational instruction, to be achieved by 01/08/24. SURGICAL SUPPLIES STERILIZER Learning Assessment Completed Yes Goal met Improve Swallowing Tolerance Description: Patient will demonstrate ability to manage the following IDDSI food texture: easy to chew(7EC) and IDDSI liquid consistency: thin(0) or secretions with no overt signs or symptoms of aspiration/dysphagia with/in 90% trials, with compensatory swallowing strategies/cues. To be achieved by 01/08/24. SURGICAL SUPPLIES STERILIZER Dysphagia Impaired Swallow Function Completed Yes Goal met Improve Swallow Function SURGICAL SUPPLIES STERILIZER Dysphagia Impaired Swallow Function Completed Yes Dementia Cognitive Home Exercise Program Completion And Instruction 4 SURGICAL SUPPLIES STERILIZER Dementia Impaired Memory/Cognition Completed Yes DEMENTIA CAREGIVER RESOURCES AND DEVELOPMENT OF HEP/ACTIVITIES 3 SURGICAL SUPPLIES STERILIZER Dementia Impaired Memory/Cognition Completed Yes Dementia Memory Strategies And Cognitive Exercises 2 SURGICAL SUPPLIES STERILIZER Dementia Impaired Memory/Cognition Completed Yes Dementia Impaired Cognition 1 SURGICAL SUPPLIES STERILIZER Dementia Impaired Memory/Cognition Completed Yes Improve Awareness Of Disease Process And Strategies To Deal With Dementia Related Changes Description: Patient/Caregiver will demonstrate understanding of compensatory memory strategies, orientation techniques, disease process related to possible progressive decline of cognition and memory skills and resources available with 90-100% accuracy. To be achieved by 01/08/24. SURGICAL SUPPLIES STERILIZER Dementia Impaired Memory/Cognition Completed Yes Goal met Improve Voice Intensity and Quality Description: Patient will produce sentences and conversation at 72-75 dB, utilizing diaphragmatic breathing and phrasing to improve vocal intensity and quality of voice with/in 80% trials. To be achieved by 01/08/24. SURGICAL SUPPLIES STERILIZER Voice Intensity and Quality Completed Yes Progress made toward goal. Patient to continue to Complete daily voice exercises Improve Voice Intensity Description: Patient will produce phrases, sentences, conversation and social communication at 72-75dB vocal intensity, to communicate effectively and efficiently with others in the environment and improve quality of life/independence, with/in 80% trials. SURGICAL SUPPLIES STERILIZER Voice Production LTG Completed Yes Progress made toward goals. Patient to continue to complete daily voice exercise. Patient needs cueing to increase vocal intensity Interventions Intervention Associated Problem/Goal Status Variance Visit Notes Medication Education Description: Evaluate/instruct patient/caregiver on obtaining, storing, identifying and administering ordered medications as well as keeping accurate medication list in the home and adhereing to medication schedule Problem:Medication Education Goal:Patient/caregive r will demonstrate ability to obtain, store, identify and administer ordered medications, keep accurate medication list in home, and adhere to medication schedule Completed Patient instructed on importance of keeping accurate medication list in home and adhering to medication schedule. SPO2 Description: Notify manager recruitment Queener if pulse ox is <92% at rest. Problem:Physician Specific Parameters Goal:Patient to maintain parameters within physician-specified ranges throughout certification period Completed Instruct on individual fall risk factors and strategies to prevent falls and injuries caused by falls. Problem:Risk for Falls Goal:Manage Risk for falls Completed SURGICAL SUPPLIES STERILIZER: Patient instructed on Managing Impaired Functional Mobility: Use assistive device(s): single point cane and standard walker and Caregiver to provide assist with: Steps and ADL/IADLs. Instruct on pain and instruct on strategies to control pain Problem:Pain Goal:Manage Pain Completed patient instructed on techniques to control pain including Pharmacological measures and Non-Pharmacological measures; rest and positioning/elevation. Antiplatelet- educated on high risk medication Problem:High Risk Medications Goal:Patient/caregive r will teach back high risk medication side effect and precaution education Completed patient educated on taking medication(s) as prescribed by provider. Do not stop medication or alter doses without speaking with your provider. Discuss medication effectiveness or side effect concerns with your provider and home care team. Discuss all medications you are taking, even ozzk-taa-gsayqyd medicines, with your provider and pharmacist since many drugs can interact with antiplatelet medications. If you forget to take a dose, DO NOT take a double dose. Take the missed dose as soon as possible on the same day. DO NOT take a double dose the next day to make up for the missed dose. Watch for signs of abnormal or excessive bleeding and bruising (refer to Bleeding Precautions education). Call your health care provider right away if you suspect something is wrong. Instruct on final discharge plan and deliver discharge instructions Problem:Discharge Goal:Manage discharge planning Completed Delivered Discharge plan: Discharge plan discussed with patient and caregiver for plan for transition to: caregiver assistance Assessment of patient/caregiver knowledge deficit and educational instruction Problem:SURGICAL SUPPLIES STERILIZER Learning Assessment Goal:Patient/Caregive r Demonstrates understanding of education Completed Education methods include: verbal cues, written instructions, visual cues and teach back. Further education required to improve knowledge and compliance with dysphagia, aspiration precautions, functional cognitive, speech intelligibility strategies and home exercise program. Dysphagia therapy modification of food/liquids disease process education Problem:SURGICAL SUPPLIES STERILIZER Dysphagia Impaired Swallow Function Goal:Improve Swallowing Tolerance Completed Patient/caregiver instructed on IDDSI food texture soft and bite sized(6) and IDDSI liquid consistency thin(0) or secretions and provided education on preparation of appropriate diet texture. SURGICAL SUPPLIES STERILIZER presented PO trials with thin consistency and patient tolerated with/in 3/3 trials, with compensatory swallowing strategies/cues. Patient/Caregiver verbalize understanding of dysphagia home program at 90% accuracy. Compensatory strategies disease process education Description: Patient/caregiver will demonstrate understanding of disease process related to dysphagia: signs/symptoms of aspiration, rationale for diet modifications, anatomy of swallowing mechanism, use of anatomical diagrams for education related to swallowing mechanism and safe swallow strategy use with/in 90% trials. To be achieved by 12/09/23. Problem:SURGICAL SUPPLIES STERILIZER Dysphagia Impaired Swallow Function Goal:Improve Swallow Function Completed Patient/caregiver re-educated on signs and symptoms of dysphagia: coughing or choking while eating or drinking, wet vocal quality post swallow, weight loss, recent pneumonia and inability to chew specific foods; results of MBS/FEES; rationale for diet modifications; good oral hygiene; swallow strategies to reduce aspiration risks small bites, small sips, slow rate of intake, alternate liquids with solids, throat clear and re-swallow, avoid talking while eating and distraction free environment with/in 90% accuracy Cognitive Home Exercise Program Completion and Instruction Problem:SURGICAL SUPPLIES STERILIZER Dementia Impaired Memory/Cognition Goal:Dementia Cognitive Home Exercise Program Completion And Instruction 4 Completed Instructed patient/caregiver on cognitive-linguistic home exercise program to improve memory for simple social, orientation and problem solving with minimal cueing with/in 5/5 opportunities. Memory Strategies and Cognitive Exercises Problem:SURGICAL SUPPLIES STERILIZER Dementia Impaired Memory/Cognition Goal:Dementia Memory Strategies And Cognitive Exercises 2 Completed Instructed patient/caregiver to use of compensatory memory strategies daily schedule, dry erase board, cue cards, association, repetition, writing and auditory alarm cues to improve patient ability to recall information within the home environment/decrease challenging behaviors with minimal cueing with /in 6/8 trials. Instructed patient/caregiver to use daily routine/schedule for morning, evening and medications within the home environment/decrease challenging behaviors with minimal cueing with /in 80% accuracy/trials/opport unities. Instructed patient/caregiver to complete cognitive stimulation exercises/activites daily with minimal cueing with /in 80% accuracy/trials/opport unities. SURGICAL SUPPLIES STERILIZER instructed caregiver to complete similar exercise to set up home exercise program. Cognitive Exercise Problem:SURGICAL SUPPLIES STERILIZER Dementia Impaired Memory/Cognition Goal:Dementia Impaired Cognition 1 Completed SURGICAL SUPPLIES STERILIZER instructed patient/caregiver on orientation to person, place, time and situation and use of visual cues to help improve patient ability to increase interaction within the home environment/decrease challenging behaviors with minimal cueing with/in 4/5 trials. SURGICAL SUPPLIES STERILIZER Instructed patient/caregiver on safety awareness related to memory loss and need for auditory alarm, visual cues for managing medications, completing ADL tasks and completing IADL tasks for maximum safety in the home environment. Voice Exercies Phonation Breath Support Problem:SURGICAL SUPPLIES STERILIZER Voice Intensity and Quality Goal:Improve Voice Intensity and Quality Completed Instructed patient on completion of diaphragmatic breathing, sustained phonation, coordination of breath and voice, gliding ascending and descending, loudness variation and decreases in pitch, to improve vocal intensity with/in 70% trials. Voice Exercises Phonation Breath Support Problem:SURGICAL SUPPLIES STERILIZER Voice Production LTG Goal:Improve Voice Intensity Completed Instructed patient on completion of diaphragmatic breathing, sustained phonation, coordination of breath and voice, gliding ascending and descending, loudness variation and decreases in pitch, to improve vocal intensity with/in 70% trials documented in this encounter [facility] for referral (narrative)* Diagnostic Procedure Only (Routine) - Closed Specialty Diagnoses / Procedures Referred By Contac t Referred To Contact [facility] Diagnoses Encounter for screening mammogram for malignant neoplasm of breast Procedures MERLIN SCREENING SCREENING MAMMOGRAPHY BI 2-VIEW BREAST INC Juan J Berumen MD [address] [place] [address] [facility] [address] [place] [address] Referral ID Status Reason Start Date Expiration Date V isits Requested Visits Authorized [id number] Closed Auto-Generate d Referral 11/25/2021 12/25/2022 1 1 * Consult, Test, Treat (Routine) - Authorized Specialty Diagnoses / Procedures Referred By Concepcion t Referred To Contact Neurology Diagnoses Tremor Unsteady gait Procedures CONSULT TO NEUROLOGY OFFICE/OUTPATIENT [facility] 60-74 MINUTES Juan J Hi MD [address] [place] [address] Referral ID Status Reason Start Date Expiration Date Visits Requested Visits Authorized [id number] Authorized PCP Requested Referral 11/25/2021 11/25/2022 1 1 [facility] for referral (narrative)* Diagnostic Procedure Only (Routine) - Closed Specialty Diagnoses / Procedures Referred By Concepcion velasquez Referred To Contact [facility] Diagnoses Encounter for screening mammogram for malignant neoplasm of breast Procedures MERLIN SCREENING SCREENING MAMMOGRAPHY BI 2-VIEW BREAST INC Juan J Berumen MD [address] [place] [address] [facility] [address] [place] [address] Referral ID Status Reason Start Date Expiration Date V isits Requested Visits Authorized [id number] Closed Auto-Generate d Referral 11/25/2021 12/25/2022 1 1 [facility] for referral (narrative)* Diagnostic Procedure Only (Routine) - Authorized Specialty Diagnoses / Procedures Referred By Concepcion t Referred To Contact [facility] Diagnoses Abnormal mammogram Procedures US BREAST LTD RT US BREAST UNI REAL TIME WITH IMAGE LIMITED Maral Moody APRN.FLAG CAR DRIVER [address] [place] [address] [facility] [address] [email or web address] [address] Referral ID Status Reason Start Date Expiration Date Visits Requested Visits Authorized [id number] Authorized Auto-Generat ed Referral 12/15/2021 01/14/2023 1 1 * Diagnostic Procedure Only (Routine) - Authorized Specialty Diagnoses / Procedures Referred By Contac t Referred To Contact [facility] IM[facility] Diagnoses Abnormal mammogram Procedures MERLIN DIAGNOSTIC RT DIAGNOSTIC MAMMOGRAPHY [facility] Maral Moody APRN.[employer] DRIVER [address] [place] [address] [facility] [address] [place] [address] Referral ID Status Reason Start Date Expiration Date Visits Requested Visits Authorized [id number] Authorized Auto-Generat ed Referral 12/15/2021 01/14/2023 1 1 [facility] for referral (narrative)* Diagnostic Procedure Only (Routine) - Closed Specialty Diagnoses / Procedures Referred By Contac t Referred To Contact [facility] IMAG[facility] Diagnoses Abnormal mammogram Procedures MERLIN DIAGNOSTIC RT DIAGNOSTIC MAMMOGRAPHY COMPUTER-AIDED [facility]J [facility] Maral Moody APRN.[employer] DRIVER [address] [place] [address] [facility] [address] [place] [address] Referral ID Status Reason Start Date Expiration Date V isits Requested Visits Authorized [id number] Closed Auto-Generate d Referral 12/15/2021 01/14/2023 1 1 [facility] for referral (narrative)* Diagnostic Procedure Only (Routine) - Authorized Specialty Diagnoses / Procedures Referred By Contac t Referred To Contact [facility] IM[facility] Diagnoses Microcalcifications of the breast Procedures MERLIN STEREO BX BREAST RT BX BREAST W/DEVICE 1ST [facility] Geovanna French MD [address] [place] [address] [facility] [address] [place] [address] Referral ID Status Reason Start Date Expiration Date Visits Requested Visits Authorized [id number] Authorized Auto-Generat ed Referral 01/21/2022 02/20/2023 1 1 [facility] for referral (narrative)* Diagnostic Procedure Only (Routine) - Closed Specialty Diagnoses / Procedures Referred By Contac t Referred To Contact [facility] IM[facility] Diagnoses Microcalcifications of the breast Procedures MERLIN STEREO BX BREAST RT BX BREAST W/DEVICE 1ST [facility] [employer] Geovanna French MD [address] [place] [address] [facility] [address] [place] [address] Referral ID Status Reason Start Date Expiration Date V isits Requested Visits Authorized [id number] Closed Auto-Generate d Referral 01/21/2022 02/20/2023 1 1 [facility] for referral (narrative)* - Authorized Specialty Diagnoses / Procedures Referred By Contac t Referred To Contact Diagnoses Chronic low back pain, unspecified back pain laterality, unspecified whether sciatica present Neck pain Thoracic spine pain Procedures CONSULT TO PHYSICAL THERAPY Piero Mittal PA-C [address] [place] [address] Referral ID Status Reason Start Date Expiration Date V isits Requested Visits Authorized [id number] Authorized 05/04/2022 08/02/2022 99 99 * Diagnostic Procedure Only (Routine) - Closed Specialty Diagnoses / Procedures Referred By Contac t Referred To Contact XR IMAGING Diagnoses Thoracic spine pain Procedures XR THORACIC LIMITED 2V AP/LAT RADEX SPINE THORACIC 2 VIEWS Piero Mittal PA-C [address] [place] [address] Xr Imaging Referral ID Status Reason Start Date Expiration Date V isits Requested Visits Authorized [id number] Closed Auto-Generate d Referral 05/04/2022 06/03/2023 1 1 * Diagnostic Procedure Only (Routine) - Closed Specialty Diagnoses / Procedures Referred By Contac t Referred To Contact XR IMAGING Diagnoses Neck pain Procedures XR CERV GENERAL 2V AP/LAT RADEX SPINE CERVICAL 2 OR 3 VIEWS Piero Mittal PA-C [address] [place] [address] Xr Imaging Referral ID Status Reason Start Date Expiration Date V isits Requested Visits Authorized [id number] Closed Auto-Generate d Referral 05/04/2022 06/03/2023 1 1 * Diagnostic Procedure Only (Routine) - Closed Specialty Diagnoses / Procedures Referred By Contac t Referred To Contact XR IMAGING Diagnoses Chronic low back pain, unspecified back pain laterality, unspecified whether sciatica present Procedures XR LUMBAR LIMITED 2V AP/LAT RADEX SPINE LUMBOSACRAL 2/3 VIEWS Piero Mittal PA-C [address] [place] [address] Xr Imaging Referral ID Status Reason Start Date Expiration Date V isits Requested Visits Authorized [id number] Closed Auto-Generate d Referral 05/04/2022 06/03/2023 1 1 [facility] for referral (narrative)* Diagnostic Procedure Only (Routine) - Closed Specialty Diagnoses / Procedures Referred By Contac t Referred To Contact XR IMAGING Diagnoses Thoracic spine pain Procedures XR THORACIC LIMITED 2V AP/LAT RADEX SPINE THORACIC 2 VIEWS Piero Mittal PA-C [address] [place] [id number] Xr Imaging Referral ID Status Reason Start Date Expiration Date V isits Requested Visits Authorized [id number] Closed Auto-Generate d Referral 05/04/2022 06/03/2023 1 1 * Diagnostic Procedure Only (Routine) - Closed Specialty Diagnoses / Procedures Referred By Contac t Referred To Contact XR IMAGING Diagnoses Neck pain Procedures XR CERV GENERAL 2V AP/LAT RADEX SPINE CERVICAL 2 OR 3 VIEWS Piero Mittal PA-C [address] [place] [address] Xr Imaging Referral ID Status Reason Start Date Expiration Date V isits Requested Visits Authorized [id number] Closed Auto-Generate d Referral 05/04/2022 06/03/2023 1 1 * Diagnostic Procedure Only (Routine) - Closed Specialty Diagnoses / Procedures Referred By Contac t Referred To Contact XR IMAGING Diagnoses Chronic low back pain, unspecified back pain laterality, unspecified whether sciatica present Procedures XR LUMBAR LIMITED 2V AP/LAT RADEX SPINE LUMBOSACRAL 2/3 VIEWS Piero Mittal PA-C [address] [place] [address] Xr Imaging Referral ID Status Reason Start Date Expiration Date V isits Requested Visits Authorized [id number] Closed Auto-Generate d Referral 05/04/2022 06/03/2023 1 1 [facility] for referral (narrative)* Diagnostic Procedure Only (Routine) - Closed Specialty Diagnoses / Procedures Referred By Contac t Referred To Contact [facility] IMAGING Diagnoses Weight loss, non-intentional Pain of upper abdomen Procedures US ABD RIGHT UPPER QUADRANT US ABDOMINAL REAL TIME W/IMAGE LIMITED Juan J Hi MD [address] [place] [address] Us Imaging Referral ID Status Reason Start Date Expiration Date V isits Requested Visits Authorized [id number] Closed Auto-Generate d Referral 11/14/2022 12/14/2023 1 1 [facility] for referral (narrative)* Outpatient Procedure (Routine) - Authorized Specialty Diagnoses / Procedures Referred By Contac t Referred To Contact [facility] Diagnoses Pain of upper abdomen Weight loss, non-intentional Dysphagia, unspecified type Procedures EGD DIAGNOSTIC ESOPHAGOGASTRODUODENOSC OPY TRANSORAL DIAGNOSTIC Patsy Zayas PA-C [address] [place] [address] [facility] [address] [place], [place] [address] Referral ID Status Reason Start Date Expiration Date Visits Requested Visits Authorized [id number] Authorized Auto-Generat ed Referral 04/18/2023 04/18/2024 1 1 [facility] for referral (narrative)* Outpatient Procedure (Routine) - Authorized Specialty Diagnoses / Procedures [facility] Diagnoses Pre-operative examination Procedures ECHO ECHO TTHRC R-T 2D W/WOM-MODE COMPL SPEC&COLR D Jasmina Carias FILM MOUNTER.FLAG CAR DRIVER [address] [place] [address] [address] Referral ID Status Reason Start Date Expiration Date Visits Requested Visits Authorized [id number] Authorized Auto-Generat ed Referral 05/01/2023 04/30/2024 1 1 [facility] for referral (narrative)* Diagnostic Procedure Only (Routine) - Closed Specialty Diagnoses / Procedures [facility] Diagnoses Weight loss, non-intentional Pain of upper abdomen Procedures US ABD RIGHT UPPER QUADRANT US ABDOMINAL REAL TIME W/IMAGE LIMITED Juan J Hi MD [address] [place] [address] [place] [address] Referral ID Status Reason Start Date Expiration Date V isits Requested Visits Authorized [id number] Closed Auto-Generate d Referral 11/14/2022 12/14/2023 1 1 [facility] for referral (narrative)* Diagnostic Procedure Only (Routine) - Pending Review Specialty Diagnoses / Procedures Referred By Contac t Referred To Contact XR IMAGING Diagnoses Osteoporosis, unspecified osteoporosis type, unspecified pathological fracture presence Procedures DXA-AXIAL SKELETON Juan J Hi MD [address] [place] [id number] Xr Imaging [id number] Referral ID Status Reason Start Date Expiration Date Visits Requested Visits Authorized [id number] Pending Review Auto-Generat ed Referral 01/11/2024 02/09/2025 1 1 [facility] for visit Narrative* Diagnostic Procedure Only (Routine) - Closed Specialty Diagnoses / Procedures Referred By Contac t Referred To Contact [facility] Diagnoses Encounter for screening mammogram for malignant neoplasm of breast Procedures MERLIN SCREENING SCREENING MAMMOGRAPHY BI 2-VIEW BREAST INC CAD Juan J Hi MD [address] [place] [place] [id number] [facility] [address] [place] [address] Referral ID Status Reason Start Date Expiration Date V isits Requested Visits Authorized [id number] Closed Auto-Generate d Referral 11/25/2021 12/25/2022 1 1 [facility] for visit Narrative* Diagnostic Procedure Only (Routine) - Closed Specialty Diagnoses / Procedures Referred By Contac t Referred To Contact [facility] Diagnoses Abnormal mammogram Procedures MERLIN DIAGNOSTIC RT DIAGNOSTIC MAMMOGRAPHY COMPUTER-AIDED DETCJ Maral Magaña, MALISSA.FLAG CAR DRIVER [address] [place] [address] [facility] [address] [place] [address] Referral ID Status Reason Start Date Expiration Date V isits Requested Visits Authorized [id number] Closed Auto-Generate d Referral 12/15/2021 01/14/2023 1 1 [facility] for visit Narrative* Diagnostic Procedure Only (Routine) - Closed Specialty Diagnoses / Procedures Referred By Contac t Referred To Contact BR IMAGING Diagnoses Microcalcifications of the breast Procedures MERLIN STEREO BX BREAST RT BX BREAST W/DEVICE 1ST [facility] Geovanna French MD [address] [place] [address] [facility] [address] [place] [address] Referral ID Status Reason Start Date Expiration Date V isits Requested Visits Authorized [id number] Closed Auto-Generate d Referral 01/21/2022 02/20/2023 1 1 [facility] for visit Narrative* Diagnostic Procedure Only (Routine) - Closed Specialty Diagnoses / Procedures Referred By Contac t Referred To Contact XR IMAGING Diagnoses Thoracic spine pain Procedures XR THORACIC LIMITED 2V AP/LAT RADEX SPINE THORACIC 2 VIEWS Piero Mittal PA-C [address] [place] [address] Xr Imaging Referral ID Status Reason Start Date Expiration Date V isits Requested Visits Authorized [id number] Closed Auto-Generate d Referral 05/04/2022 06/03/2023 1 1 [facility] Advance Directives No Advanced Directives Records FoundDocuments on File Type Date Recorded Patient Pot Fisher Expl anation Advance Directive(s) 11/05/2019 11:36 AM Date Activated Date Inactivated Comments 11/13/2023 9:56 AM Documents on File Type Date Recorded Patient Pot Fisher Expl anation Advance Directive(s) 11/05/2019 11:36 AM Advance Directive Response Recorded Date/ Time Living Will Yes March 29 4:28pm Power of Store Assistant Yes March 29, 2 021 4:28pm Advance Directive Response Recorded Date/ Time Living Will Yes March 29 3:28pm Power of Store Assistant Yes March 29, 2 021 3:28pm Advance Directive Response Recorded Date/ Time Living Will Yes October 02, 2 024 2:50pm Power of Store Assistant Yes October 02, 2023 2:50pm Name of Medical Power of Store Assistant Srinivas Phelps October 02, 2023 2:50pm Advance Directive Response Recorded Date/ Time Name of Medical Power of Store Assistant Srinivas Phelps October 02, 2023 3:50pm Living Will Yes October 02, 2 024 3:50pm Power of Store Assistant Yes October 02, 2023 3:50pm Date Activated Date Inactivated Comments 11/13/2023 9:56 AM Medications Administered Section Inactive Administered Medications - up to 3 most recent administrations Medication Order MAR Action Action Date Dose Rate Site lidocaine 10 mg/mL (1 %) injection (XYLOCAINE) OTHER, NEEDED, Starting on Ariane 02/17/22 at 1347, Until Ariane 02/17/22 at 1347 Given 02/17/2022 1:47 PM EDT 200 mg Breast, Right Summary Purpose Family History No Family History Records Found Relationship Condition Age at Onset Recorded Date/T cece mother Coronary artery disease Unknown Myocardial infarction Unknown brother Coronary artery disease Unknown brother Malignant neoplasm Unknown sister Cardiac disease Unknown Chief Complaint and Reason for Visit Chief Complaint HOLTER Chest discomfort, htn L.[place] PALPITATIONS MURMUR Reason for Visit Palpitations 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 pectoris Essential (primary) hypertension Hyperlipidemia Takotsubo cardiomyopathy Chief Complaint 1 Y FU PARKINSONS PARKINSONS DISEASE Reason for Visit Essential (primary) hypertension Takotsubo cardiomyopathy Chief Complaint PARKINSONS/RX HERE Chief Complaint ankle pain Chief Complaint ankle pain 6 M FU Reason for Visit Cardiac murmur Fatigue SOB (shortness of breath) 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 pectoris Essential (primary) hypertension Hyperlipidemia Takotsubo cardiomyopathy Chief Complaint ankle pain 6 M FU DILATED CARDIOMYOPATHY Amb Documentation Reason for Visit Cardiac murmur Fatigue SOB (shortness of breath) 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 pectoris Essential (primary) hypertension Hyperlipidemia Takotsubo cardiomyopathy Reason for Referral Specialty Diagnoses / Procedures Referred By Concepcion velasquez Referred To Contact [facility] Diagnoses Chronic low back pain, unspecified back pain laterality, unspecified whether sciatica present Procedures CON[facility]ULT TO [facility]/OUTPATIENT [facility] 60-74 MINUTES Kristy Cr MD [address] [place] [address] Referral ID Status Reason Start Date Expiration Date Visits Requested Visits Authorized [id number] Authorized PCP Requested Referral 04/06/2022 04/06/2023 1 1 Specialty Diagnoses / Procedures Referred By Contac t Referred To Contact MR IMAGING Diagnoses Tremor Unsteady gait Parkinsonism, unspecified Parkinsonism type (HCC) Procedures MRI BRAIN WO IVCON MRI BRAIN BRAIN STEM W/O CONTRAST MATERIAL Kristy Cr MD [address] [address] Mr Imaging Referral ID Status Reason Start Date Expiration Date Visits Requested Visits Authorized [id number] Authorized Auto-Generat ed Referral 04/06/2022 05/06/2023 1 1 Specialty Diagnoses / Procedures Referred By Contac t Referred To Contact CT IMAGING Diagnoses Unsteady gait Parkinsonism, unspecified Parkinsonism type (HCC) Procedures CT BRAIN WO IVCON CT HEAD/BRAIN W/O CONTRAST MATERIAL Kristy Cr MD [address] [address] [address] Imaging Referral ID Status Reason Start Date Expiration Date Visits Requested Visits Authorized [id number] Authorized Auto-Generat ed Referral 04/29/2022 05/29/2023 1 1 Specialty Diagnoses / Procedures Referred By Contac t Referred To Contact Gastroenterology Diagnoses Pain of upper abdomen Weight loss, non-intentional Dysphagia, unspecified type Procedures CONSULT TO GASTROENTEROLOGY OFFICE/OUTPATIENT [facility] 60-[place] [address] [place] [address] Referral ID Status Reason Start Date Expiration Date Visits Requested Visits Authorized [id number] Authorized PCP Requested Referral 02/13/2023 02/13/2024 1 1 Specialty Diagnoses / Procedures Referred By Contac t Referred To Contact [facility] Diagnoses Dysphagia, unspecified type Procedures CONSULT TO SPEECH THERAPY OFFICE/OUTPATIENT [facility] 60-74 [place] [address] [place] [address] [facility] [address] [place] [address] Referral ID Status Reason Start Date Expiration Date Visits Requested Visits Authorized [id number] Authorized Auto-Generat ed Referral 02/16/2023 02/16/2024 99 99 Specialty Diagnoses / Procedures Referred By Contac t Referred To Contact CT IMAGING Diagnoses Dementia without behavioral disturbance (HCC) Procedures CT BRAIN WO IVCON CT HEAD/BRAIN W/O CONTRAST MATERIAL Fernando Galarza Jr., MD [address] [address] [id number] Referral ID Status Reason Start Date Expiration Date V isits Requested Visits Authorized [id number] Closed Auto-Generate d Referral 10/09/2023 11/07/2024 1 1 Specialty Diagnoses / Procedures Referred By Contac t Referred To Contact Diagnoses Parkinson's disease, unspecified whether dyskinesia present, unspecified whether manifestations fluctuate (HCC) Procedures CONSULT TO [facility] Aiyana Garcia PA-C [address] [place] [address] [address] [place] [address] Referral ID Status Reason Start Date Expiration Date Visits Requested Visits Authorized [id number] Pending Review PCP Requested Referral 11/07/2023 02/05/2024 3 3 Specialty Diagnoses / Procedures Referred By Contac t Referred To Contact Diagnoses Parkinson's disease, unspecified whether dyskinesia present, unspecified whether manifestations fluctuate (HCC) Procedures CONSULT TO SPEECH THERAPY Aiyana Garcia PA-C [address] [place] [address] Referral ID Status Reason Start Date Expiration Date Visits Requested Visits Authorized [id number] Authorized PCP Requested Referral 11/07/2023 02/05/2024 99 99 Specialty Diagnoses / Procedures Referred By Contac t Referred To Contact [facility] Diagnoses Parkinson's disease, unspecified whether dyskinesia present, unspecified whether manifestations fluctuate (HCC) Procedures CONSULT TO PHYSICAL THERAPY PHYSICAL THERAPY EVALUATION HIGH COMPLEX 45 MINS Aiyana Garcia PA-C [address] [place] [address] [facility] [address] [place] [address] Referral ID Status Reason Start Date Expiration Date Visits Requested Visits Authorized [id number] Authorized PCP Requested Referral Auto-Generate d Referral 11/07/2023 11/06/2024 99 99 Specialty Diagnoses / Procedures Referred By Contac t Referred To Contact Diagnoses Weight loss, non-intentional Dysphagia, unspecified type Parkinson's disease, unspecified whether dyskinesia present, unspecified whether manifestations fluctuate (HCC) Dementia associated with Parkinson's disease (HCC) Procedures CONSULT TO PALLIATIVE CARE Juan J Hi MD [address] [place] [address] Referral ID Status Reason Start Date Expiration Date Visits Requested Visits Authorized [id number] Ref Not Required PCP Requested Referral 04/11/2024 04/11/2025 1 1 Health Concerns Infection Onset Date Last Indicated Resolved Time COVID-19 Rule-Out 05/09/2022 05/09/2022 Infection Onset Date Last Indicated Resolved Time COVID-19 Rule-Out 05/09/2022 05/09/2022 05/10/2022 1:44 AM EDT COVID-19 Confirmed 05/09/2022 05/09/2022 Infection Onset Date Last Indicated Resolved Time COVID-19 Confirmed 05/09/2022 05/09/2022 Additional Source Comments Source Comments (unrecognize d section and content) In the event this informatio n is protected by the Federal Confidentiality of Alcohol and Drug Abuse Patient Records regulations: The Federal rules restrict any use of the information to criminally investigate or prosecute any alcohol or drug abuse patient.[facility] the event this information is protected by the Federal Confidentiality of Alcohol and Drug Abuse Patient Records regulations: The Federal rules restrict any use of the information to criminally investigate or prosecute any alcohol or drug abuse patient.[facility] the event this information is protected by the Federal Confidentiality of Alcohol and Drug Abuse Patient Records regulations: The Federal rules restrict any use of the information to criminally investigate or prosecute any alcohol or drug abuse patient.[facility]In the event this information is protected by the Federal Confidentiality of Alcohol and Drug Abuse Patient Records regulations: The Federal rules restrict any use of the information to criminally investigate or prosecute any alcohol or drug abuse patient.[facility]In the event this information is protected by the Federal Confidentiality of Alcohol and Drug Abuse Patient Records regulations: The Federal rules restrict any use of the information to criminally investigate or prosecute any alcohol or drug abuse patient.[facility]In the event this information is protected by the Federal Confidentiality of Alcohol and Drug Abuse Patient Records regulations: The Federal rules restrict any use of the information to criminally investigate or prosecute any alcohol or drug abuse patient.[facility]In the event this information is protected by the Federal Confidentiality of Alcohol and Drug Abuse Patient Records regulations: The Federal rules restrict any use of the information to criminally investigate or prosecute any alcohol or drug abuse patient.[facility]In the event this information is protected by the Federal Confidentiality of Alcohol and Drug Abuse Patient Records regulations: The Federal rules restrict any use of the information to criminally investigate or prosecute any alcohol or drug abuse patient.[facility]In the event this information is protected by the Federal Confidentiality of Alcohol and Drug Abuse Patient Records regulations: The Federal rules restrict any use of the information to criminally investigate or prosecute any alcohol or drug abuse patient.[facility]In the event this information is protected by the Federal Confidentiality of Alcohol and Drug Abuse Patient Records regulations: The Federal rules restrict any use of the information to criminally investigate or prosecute any alcohol or drug abuse patient.[facility]In the event this information is protected by the Federal Confidentiality of Alcohol and Drug Abuse Patient Records regulations: The Federal rules restrict any use of the information to criminally investigate or prosecute any alcohol or drug abuse patient.[facility] HospitalIn the event this information is protected by the Federal Confidentiality of Alcohol and Drug Abuse Patient Records regulations: The Federal rules restrict any use of the information to criminally investigate or prosecute any alcohol or drug abuse patient.[facility] HospitalIn the event this information is protected by the Federal Confidentiality of Alcohol and Drug Abuse Patient Records regulations: The Federal rules restrict any use of the information to criminally investigate or prosecute any alcohol or drug abuse patient.[facility] HospitalIn the event this information is protected by the Federal Confidentiality of Alcohol and Drug Abuse Patient Records regulations: The Federal rules restrict any use of the information to criminally investigate or prosecute any alcohol or drug abuse patient.[facility] HospitalIn the event this information is protected by the Federal Confidentiality of Alcohol and Drug Abuse Patient Records regulations: The Federal rules restrict any use of the information to criminally investigate or prosecute any alcohol or drug abuse patient.[facility] HospitalIn the event this information is protected by the Federal Confidentiality of Alcohol and Drug Abuse Patient Records regulations: The Federal rules restrict any use of the information to criminally investigate or prosecute any alcohol or drug abuse patient.[facility]In the event this information is protected by the Federal Confidentiality of Alcohol and Drug Abuse Patient Records regulations: The Federal rules restrict any use of the information to criminally investigate or prosecute any alcohol or drug abuse patient.[facility]In the event this information is protected by the Federal Confidentiality of Alcohol and Drug Abuse Patient Records regulations: The Federal rules restrict any use of the information to criminally investigate or prosecute any alcohol or drug abuse patient.[facility] HospitalIn the event this information is protected by the Federal Confidentiality of Alcohol and Drug Abuse Patient Records regulations: The Federal rules restrict any use of the information to criminally investigate or prosecute any alcohol or drug abuse patient.[facility] HospitalIn the event this information is protected by the Federal Confidentiality of Alcohol and Drug Abuse Patient Records regulations: The Federal rules restrict any use of the information to criminally investigate or prosecute any alcohol or drug abuse patient.[facility] HospitalIn the event this information is protected by the Federal Confidentiality of Alcohol and Drug Abuse Patient Records regulations: The Federal rules restrict any use of the information to criminally investigate or prosecute any alcohol or drug abuse patient.[facility] HospitalIn the event this information is protected by the Federal Confidentiality of Alcohol and Drug Abuse Patient Records regulations: The Federal rules restrict any use of the information to criminally investigate or prosecute any alcohol or drug abuse patient.[facility] HospitalIn the event this information is protected by the Federal Confidentiality of Alcohol and Drug Abuse Patient Records regulations: The Federal rules restrict any use of the information to criminally investigate or prosecute any alcohol or drug abuse patient.[facility] HospitalIn the event this information is protected by the Federal Confidentiality of Alcohol and Drug Abuse Patient Records regulations: The Federal rules restrict any use of the information to criminally investigate or prosecute any alcohol or drug abuse patient.[facility] HospitalIn the event this information is protected by the Federal Confidentiality of Alcohol and Drug Abuse Patient Records regulations: The Federal rules restrict any use of the information to criminally investigate or prosecute any alcohol or drug abuse patient.[facility] HospitalIn the event this information is protected by the Federal Confidentiality of Alcohol and Drug Abuse Patient Records regulations: The Federal rules restrict any use of the information to criminally investigate or prosecute any alcohol or drug abuse patient.[facility] HospitalIn the event this information is protected by the Federal Confidentiality of Alcohol and Drug Abuse Patient Records regulations: The Federal rules restrict any use of the information to criminally investigate or prosecute any alcohol or drug abuse patient.[facility] HospitalIn the event this information is protected by the Federal Confidentiality of Alcohol and Drug Abuse Patient Records regulations: The Federal rules restrict any use of the information to criminally investigate or prosecute any alcohol or drug abuse patient.[facility] HospitalIn the event this information is protected by the Federal Confidentiality of Alcohol and Drug Abuse Patient Records regulations: The Federal rules restrict any use of the information to criminally investigate or prosecute any alcohol or drug abuse patient.[facility] HospitalIn the event this information is protected by the Federal Confidentiality of Alcohol and Drug Abuse Patient Records regulations: The Federal rules restrict any use of the information to criminally investigate or prosecute any alcohol or drug abuse patient.[facility] HospitalIn the event this information is protected by the Federal Confidentiality of Alcohol and Drug Abuse Patient Records regulations: The Federal rules restrict any use of the information to criminally investigate or prosecute any alcohol or drug abuse patient.[facility] HospitalIn the event this information is protected by the Federal Confidentiality of Alcohol and Drug Abuse Patient Records regulations: The Federal rules restrict any use of the information to criminally investigate or prosecute any alcohol or drug abuse patient.[facility] HospitalIn the event this information is protected by the Federal Confidentiality of Alcohol and Drug Abuse Patient Records regulations: The Federal rules restrict any use of the information to criminally investigate or prosecute any alcohol or drug abuse patient.[facility] HospitalIn the event this information is protected by the Federal Confidentiality of Alcohol and Drug Abuse Patient Records regulations: The Federal rules restrict any use of the information to criminally investigate or prosecute any alcohol or drug abuse patient.[facility] HospitalIn the event this information is protected by the Federal Confidentiality of Alcohol and Drug Abuse Patient Records regulations: The Federal rules restrict any use of the information to criminally investigate or prosecute any alcohol or drug abuse patient.[facility] HospitalIn the event this information is protected by the Federal Confidentiality of Alcohol and Drug Abuse Patient Records regulations: The Federal rules restrict any use of the information to criminally investigate or prosecute any alcohol or drug abuse patient.[facility] HospitalIn the event this information is protected by the Federal Confidentiality of Alcohol and Drug Abuse Patient Records regulations: The Federal rules restrict any use of the information to criminally investigate or prosecute any alcohol or drug abuse patient.[facility] HospitalIn the event this information is protected by the Federal Confidentiality of Alcohol and Drug Abuse Patient Records regulations: The Federal rules restrict any use of the information to criminally investigate or prosecute any alcohol or drug abuse patient.[facility] HospitalIn the event this information is protected by the Federal Confidentiality of Alcohol and Drug Abuse Patient Records regulations: The Federal rules restrict any use of the information to criminally investigate or prosecute any alcohol or drug abuse patient.[facility] HospitalIn the event this information is protected by the Federal Confidentiality of Alcohol and Drug Abuse Patient Records regulations: The Federal rules restrict any use of the information to criminally investigate or prosecute any alcohol or drug abuse patient.[facility] HospitalIn the event this information is protected by the Federal Confidentiality of Alcohol and Drug Abuse Patient Records regulations: The Federal rules restrict any use of the information to criminally investigate or prosecute any alcohol or drug abuse patient.[facility] HospitalIn the event this information is protected by the Federal Confidentiality of Alcohol and Drug Abuse Patient Records regulations: The Federal rules restrict any use of the information to criminally investigate or prosecute any alcohol or drug abuse patient.[facility] HospitalIn the event this information is protected by the Federal Confidentiality of Alcohol and Drug Abuse Patient Records regulations: The Federal rules restrict any use of the information to criminally investigate or prosecute any alcohol or drug abuse patient.[facility] HospitalIn the event this information is protected by the Federal Confidentiality of Alcohol and Drug Abuse Patient Records regulations: The Federal rules restrict any use of the information to criminally investigate or prosecute any alcohol or drug abuse patient.[facility] HospitalIn the event this information is protected by the Federal Confidentiality of Alcohol and Drug Abuse Patient Records regulations: The Federal rules restrict any use of the information to criminally investigate or prosecute any alcohol or drug abuse patient.[facility] HospitalIn the event this information is protected by the Federal Confidentiality of Alcohol and Drug Abuse Patient Records regulations: The Federal rules restrict any use of the information to criminally investigate or prosecute any alcohol or drug abuse patient.[facility] HospitalIn the event this information is protected by the Federal Confidentiality of Alcohol and Drug Abuse Patient Records regulations: The Federal rules restrict any use of the information to criminally investigate or prosecute any alcohol or drug abuse patient.[facility] HospitalIn the event this information is protected by the Federal Confidentiality of Alcohol and Drug Abuse Patient Records regulations: The Federal rules restrict any use of the information to criminally investigate or prosecute any alcohol or drug abuse patient.[facility] HospitalIn the event this information is protected by the Federal Confidentiality of Alcohol and Drug Abuse Patient Records regulations: The Federal rules restrict any use of the information to criminally investigate or prosecute any alcohol or drug abuse patient.[facility] HospitalIn the event this information is protected by the Federal Confidentiality of Alcohol and Drug Abuse Patient Records regulations: The Federal rules restrict any use of the information to criminally investigate or prosecute any alcohol or drug abuse patient.[facility] HospitalIn the event this information is protected by the Federal Confidentiality of Alcohol and Drug Abuse Patient Records regulations: The Federal rules restrict any use of the information to criminally investigate or prosecute any alcohol or drug abuse patient.[facility] HospitalIn the event this information is protected by the Federal Confidentiality of Alcohol and Drug Abuse Patient Records regulations: The Federal rules restrict any use of the information to criminally investigate or prosecute any alcohol or drug abuse patient.[facility] HospitalIn the event this information is protected by the Federal Confidentiality of Alcohol and Drug Abuse Patient Records regulations: The Federal rules restrict any use of the information to criminally investigate or prosecute any alcohol or drug abuse patient.[facility] HospitalIn the event this information is protected by the Federal Confidentiality of Alcohol and Drug Abuse Patient Records regulations: The Federal rules restrict any use of the information to criminally investigate or prosecute any alcohol or drug abuse patient.[facility] HospitalIn the event this information is protected by the Federal Confidentiality of Alcohol and Drug Abuse Patient Records regulations: The Federal rules restrict any use of the information to criminally investigate or prosecute any alcohol or drug abuse patient.[facility] HospitalIn the event this information is protected by the Federal Confidentiality of Alcohol and Drug Abuse Patient Records regulations: The Federal rules restrict any use of the information to criminally investigate or prosecute any alcohol or drug abuse patient.[facility] HospitalIn the event this information is protected by the Federal Confidentiality of Alcohol and Drug Abuse Patient Records regulations: The Federal rules restrict any use of the information to criminally investigate or prosecute any alcohol or drug abuse patient.[facility] HospitalIn the event this information is protected by the Federal Confidentiality of Alcohol and Drug Abuse Patient Records regulations: The Federal rules restrict any use of the information to criminally investigate or prosecute any alcohol or drug abuse patient.[facility] HospitalIn the event this information is protected by the Federal Confidentiality of Alcohol and Drug Abuse Patient Records regulations: The Federal rules restrict any use of the information to criminally investigate or prosecute any alcohol or drug abuse patient.[facility] HospitalIn the event this information is protected by the Federal Confidentiality of Alcohol and Drug Abuse Patient Records regulations: The Federal rules restrict any use of the information to criminally investigate or prosecute any alcohol or drug abuse patient.[facility] HospitalIn the event this information is protected by the Federal Confidentiality of Alcohol and Drug Abuse Patient Records regulations: The Federal rules restrict any use of the information to criminally investigate or prosecute any alcohol or drug abuse patient.[facility] HospitalIn the event this information is protected by the Federal Confidentiality of Alcohol and Drug Abuse Patient Records regulations: The Federal rules restrict any use of the information to criminally investigate or prosecute any alcohol or drug abuse patient.[facility] HospitalIn the event this information is protected by the Federal Confidentiality of Alcohol and Drug Abuse Patient Records regulations: The Federal rules restrict any use of the information to criminally investigate or prosecute any alcohol or drug abuse patient.[facility] HospitalIn the event this information is protected by the Federal Confidentiality of Alcohol and Drug Abuse Patient Records regulations: The Federal rules restrict any use of the information to criminally investigate or prosecute any alcohol or drug abuse patient.[facility] HospitalIn the event this information is protected by the Federal Confidentiality of Alcohol and Drug Abuse Patient Records regulations: The Federal rules restrict any use of the information to criminally investigate or prosecute any alcohol or drug abuse patient.[facility] HospitalIn the event this information is protected by the Federal Confidentiality of Alcohol and Drug Abuse Patient Records regulations: The Federal rules restrict any use of the information to criminally investigate or prosecute any alcohol or drug abuse patient.[facility] HospitalIn the event this information is protected by the Federal Confidentiality of Alcohol and Drug Abuse Patient Records regulations: The Federal rules restrict any use of the information to criminally investigate or prosecute any alcohol or drug abuse patient.[facility] HospitalIn the event this information is protected by the Federal Confidentiality of Alcohol and Drug Abuse Patient Records regulations: The Federal rules restrict any use of the information to criminally investigate or prosecute any alcohol or drug abuse patient.[facility] HospitalIn the event this information is protected by the Federal Confidentiality of Alcohol and Drug Abuse Patient Records regulations: The Federal rules restrict any use of the information to criminally investigate or prosecute any alcohol or drug abuse patient.[facility] HospitalIn the event this information is protected by the Federal Confidentiality of Alcohol and Drug Abuse Patient Records regulations: The Federal rules restrict any use of the information to criminally investigate or prosecute any alcohol or drug abuse patient.[facility] HospitalIn the event this information is protected by the Federal Confidentiality of Alcohol and Drug Abuse Patient Records regulations: The Federal rules restrict any use of the information to criminally investigate or prosecute any alcohol or drug abuse patient.[facility] HospitalIn the event this information is protected by the Federal Confidentiality of Alcohol and Drug Abuse Patient Records regulations: The Federal rules restrict any use of the information to criminally investigate or prosecute any alcohol or drug abuse patient.[facility] HospitalIn the event this information is protected by the Federal Confidentiality of Alcohol and Drug Abuse Patient Records regulations: The Federal rules restrict any use of the information to criminally investigate or prosecute any alcohol or drug abuse patient.[facility] HospitalIn the event this information is protected by the Federal Confidentiality of Alcohol and Drug Abuse Patient Records regulations: The Federal rules restrict any use of the information to criminally investigate or prosecute any alcohol or drug abuse patient.[facility] HospitalIn the event this information is protected by the Federal Confidentiality of Alcohol and Drug Abuse Patient Records regulations: The Federal rules restrict any use of the information to criminally investigate or prosecute any alcohol or drug abuse patient.[facility] HospitalIn the event this information is protected by the Federal Confidentiality of Alcohol and Drug Abuse Patient Records regulations: The Federal rules restrict any use of the information to criminally investigate or prosecute any alcohol or drug abuse patient.[facility] HospitalIn the event this information is protected by the Federal Confidentiality of Alcohol and Drug Abuse Patient Records regulations: The Federal rules restrict any use of the information to criminally investigate or prosecute any alcohol or drug abuse patient.[facility] HospitalIn the event this information is protected by the Federal Confidentiality of Alcohol and Drug Abuse Patient Records regulations: The Federal rules restrict any use of the information to criminally investigate or prosecute any alcohol or drug abuse patient.[facility] HospitalIn the event this information is protected by the Federal Confidentiality of Alcohol and Drug Abuse Patient Records regulations: The Federal rules restrict any use of the information to criminally investigate or prosecute any alcohol or drug abuse patient.[facility] HospitalIn the event this information is protected by the Federal Confidentiality of Alcohol and Drug Abuse Patient Records regulations: The Federal rules restrict any use of the information to criminally investigate or prosecute any alcohol or drug abuse patient.[facility] HospitalIn the event this information is protected by the Federal Confidentiality of Alcohol and Drug Abuse Patient Records regulations: The Federal rules restrict any use of the information to criminally investigate or prosecute any alcohol or drug abuse patient.[facility] HospitalIn the event this information is protected by the Federal Confidentiality of Alcohol and Drug Abuse Patient Records regulations: The Federal rules restrict any use of the information to criminally investigate or prosecute any alcohol or drug abuse patient.[facility] HospitalIn the event this information is protected by the Federal Confidentiality of Alcohol and Drug Abuse Patient Records regulations: The Federal rules restrict any use of the information to criminally investigate or prosecute any alcohol or drug abuse patient.[facility] HospitalIn the event this information is protected by the Federal Confidentiality of Alcohol and Drug Abuse Patient Records regulations: The Federal rules restrict any use of the information to criminally investigate or prosecute any alcohol or drug abuse patient.[facility] HospitalIn the event this information is protected by the Federal Confidentiality of Alcohol and Drug Abuse Patient Records regulations: The Federal rules restrict any use of the information to criminally investigate or prosecute any alcohol or drug abuse patient.[facility] HospitalIn the event this information is protected by the Federal Confidentiality of Alcohol and Drug Abuse Patient Records regulations: The Federal rules restrict any use of the information to criminally investigate or prosecute any alcohol or drug abuse patient.[facility] HospitalIn the event this information is protected by the Federal Confidentiality of Alcohol and Drug Abuse Patient Records regulations: The Federal rules restrict any use of the information to criminally investigate or prosecute any alcohol or drug abuse patient.[facility] Reason for Visit (unrecogniz ed section and content) Reason Comments PT Discharge Physical Therapy Specialty Diagnoses / Procedures Referred By Contac t Referred To Contact Diagnoses Chronic low back pain, unspecified back pain laterality, unspecified whether sciatica present Neck pain Thoracic spine pain Procedures CONSULT TO PHYSICAL THERAPY Piero Mittal PA-C [address] [place] [address] Referral ID Status Reason Start Date Expiration Date V isits Requested Visits Authorized [id number] Authorized 05/04/2022 08/02/2022 99 99 Reason Comments Physical Therapy Reason Comments Medicare Wellness Exam Reason Comments Orders Reason Comments Patient Update Reason Comments Consult mammogram Right f[facility] calcification Reason Comments Results Reason Comments Medication Question Reason Comments F/U 3 Month Reason Comments Tremor Specialty Diagnoses / Procedures Referred By Contac t Referred To Contact Diagnoses Tremor Unsteady gait Procedures PROVIDER ORDERED FOLLOW UP OFFICE/OUTPATIENT NEW HIGH MDM 60-74 MINUTES Kristy Cr MD [address] [place] [id number] Referral ID Status Reason Start Date Expiration Date V isits Requested Visits Authorized [id number] Closed PCP Requested Referral 12/09/2021 03/09/2022 1 1 Reason Comments Refill Request Specialty Diagnoses / Procedures Referred By Contac t Referred To Contact MR IMAGING Diagnoses Tremor Unsteady gait Parkinsonism, unspecified Parkinsonism type (HCC) Procedures MRI BRAIN WO IVCON MRI BRAIN BRAIN STEM W/O CONTRAST MATERIAL Kristy Cr MD [address] [address] Mr Imaging Referral ID Status Reason Start Date Expiration Date Visits Requested Visits Authorized [id number] Authorized Auto-Generat ed Referral 04/06/2022 05/06/2023 1 1 Reason Comments Clinical Update Reason Comments New Patient Low Back Pain Right Hip Pain Left Hip Pain Leg Pain both Specialty Diagnoses / Procedures Referred By Contac t Referred To Contact Spine Galt Diagnoses Chronic low back pain, unspecified back pain laterality, unspecified whether sciatica present Procedures CONSULT TO [facility] OFFICE/OUTPATIENT [facility] 60-74 MINUTES Kristy Cr MD [address] [facility] [address] [place] [address] Referral ID Status Reason Start Date Expiration Date V isits Requested Visits Authorized [id number] Closed PCP Requested Referral 04/06/2022 04/06/2023 1 1 Reason Comments Nasal Congestion drainage, cough and bodyaches x 2 days Reason Comments Covid19 Concern Reason Comments PT Eval Reason Comments Appointment Time Change on 08/01 Reason Onset Date Comments Refill Request 07/18/2022 Reason Comments Established Patient Reason Comments Procedure Question Reason Onset Date Comments Refill Request 11/03/2022 Reason Comments Orders Reason Comments Annual Medicare Wellness 2 month follow-up Reason Comments F/U 3 Month Reason Comments Orders Reason Comments RUQ Abdominal Pain Weight loss- not eat ing, Dysphagia Specialty Diagnoses / Procedures Referred By Contac t Referred To Contact Gastroenterology Diagnoses Pain of upper abdomen Weight loss, non-intentional Dysphagia, unspecified type Procedures CONSULT TO GASTROENTEROLOGY OFFICE/OUTPATIENT [facility] 60-74 MINUTES Juan J Hi MD [address] [place] [address] Referral ID Status Reason Start Date Expiration Date V isits Requested Visits Authorized [id number] Closed PCP Requested Referral 02/13/2023 02/13/2024 1 1 Reason Comments Consult Reason Comments Appointment Confirmation Reason Comments Radiology US Specialty Diagnoses / Procedures Referred By Contac t Referred To Contact US IMAGING Diagnoses Weight loss, non-intentional Pain of upper abdomen Procedures US ABD RIGHT UPPER QUADRANT US ABDOMINAL REAL TIME W/IMAGE LIMITED Juan J Hi MD [address] [place] [address] [place] [address] Referral ID Status Reason Start Date Expiration Date V isits Requested Visits Authorized [id number] Closed Auto-Generate d Referral 11/14/2022 12/14/2023 1 1 Reason Comments 2 week follow-up Reason Comments Radiology CT Specialty Diagnoses / Procedures Referred By Contac t Referred To Contact CT IMAGING Diagnoses Dementia without behavioral disturbance (HCC) Procedures CT BRAIN WO IVCON CT HEAD/BRAIN W/O CONTRAST MATERIAL Fernando Galarza Jr., MD [address] [facility] [address] [place] [address] [place] [address] Referral ID Status Reason Start Date Expiration Date V isits Requested Visits Authorized [id number] Closed Auto-Generate d Referral 10/09/2023 11/07/2024 1 1 Reason Comments Recheck Reason Comments change in behavior Reason Comments Patient Question Reason Comments Follow Up Follow up Reason Comments Home Care Reason Comments Appointment Reason Comments Medicare Wellness Exam Reason Onset Date Comments Refill Request 02/13/2024 Reason Comments Forms Reason Onset Date Comments Refill Request 03/08/2024 Reason Comments fax from [employer] Reason Comments New Patient MQ patient, requesti ng evaluation for Parkinsons Reason Onset Date Comments Refill Request 04/22/2024 Reason Comments hospice services Reason Onset Date Comments Population Health Navigation Outreach 01/14/2025 [employer] Reason Onset Date Comments Population Health Navigation Outreach 02/18/2025 [employer] Care Teams (unrecognized sec tion and content) Inbound Sales Manager Relationship Specialty Start Date End Date Juan J Hi MD [address] [place] [address] PCP - General 06/07/02 Inbound Sales Manager Relationship Specialty Start Date End Date Juan J Hi MD [address] [place] [address] PCP - General 06/07/02 Inbound Sales Manager Relationship Specialty Start Date End Date Juan J Hi MD [address] [place] [address] PCP - General 06/07/02 Inbound Sales Manager Relationship Specialty Start Date End Date Juan J Hi MD [address] [place] [address] PCP - General 06/07/02 Inbound Sales Manager Relationship Specialty Start Date End Date Juna J Hi MD [address] [place] [address] PCP - General 06/07/02 Inbound Sales Manager Relationship Specialty Start Date End Date Juan J Hi MD [address] [place] [address] PCP - General 06/07/02 Inbound Sales Manager Relationship Specialty Start Date End Date Juan J Hi MD [address] [place] [address] PCP - General 06/07/02 Inbound Sales Manager Relationship Specialty Start Date End Date Juan J Hi MD [address] [place] [address] PCP - General 06/07/02 Inbound Sales Manager Relationship Specialty Start Date End Date Juan J Hi MD [address] [place] [address] PCP - General 06/07/02 Inbound Sales Manager Relationship Specialty Start Date End Date Juan J Hi MD [address] [place] [address] PCP - General 06/07/02 Inbound Sales Manager Relationship Specialty Start Date End Date Juan J Hi MD [address] [place] [address] PCP - General 06/07/02 Inbound Sales Manager Relationship Specialty Start Date End Date Juan J Hi MD [address] [place] [address] PCP - General 06/07/02 Inbound Sales Manager Relationship Specialty Start Date End Date Juan J Hi MD [address] [place] [address] PCP - General 06/07/02 Inbound Sales Manager Relationship Specialty Start Date End Date Juan J Hi MD [address] [place] [address] PCP - General 06/07/02 Inbound Sales Manager Relationship Specialty Start Date End Date Juan J Hi MD [address] [place] [address] PCP - General 06/07/02 Inbound Sales Manager Relationship Specialty Start Date End Date Juan J Hi MD [address] [place] [address] PCP - General 06/07/02 Inbound Sales Manager Relationship Specialty Start Date End Date Juan J Hi MD [address] [place] [address] PCP - General 06/07/02 Inbound Sales Manager Relationship Specialty Start Date End Date Juan J Hi MD [address] [place] [address] PCP - General 06/07/02 Inbound Sales Manager Relationship Specialty Start Date End Date Juan J Hi MD [address] [place] [address] PCP - General 06/07/02 Inbound Sales Manager Relationship Specialty Start Date End Date Juan J Hi MD [address] [place] [address] PCP - General 06/07/02 Inbound Sales Manager Relationship Specialty Start Date End Date Juan J Hi MD [address] [place] [address] PCP - General 06/07/02 Inbound Sales Manager Relationship Specialty Start Date End Date Juan J Hi MD [employer] [place] [address] PCP - General 06/07/02 Inbound Sales Manager Relationship Specialty Start Date End Date Juan J Hi MD [address] [place], [place] [address] PCP - General 06/07/02 Team Status: Active Member Role Status Dates Dr. Juan J Hi MD Family Provider Active Dr. Juan J Hi MD Primary Care Provider Active Team Status: Inactive Member Role Status Dates Dr. Juan J Hi MD Primary Care Provider, Refer ring Provider Active Dr. Martin Alvarado MD Attending Provider Active Team Status: Inactive Member Role Status Dates Dr. Juan J Hi MD Primary Care Provider, Atten ding Provider Active Team Status: Active Member Role Status Dates Dr. Juan J Hi MD Primary Care P rovider, Attending Provider, Referring Provider Active Team Status: Inactive Member Role Status Dates Dr. Juan J Hi MD Primary Care P rovider, Attending Provider, Referring Provider Active Inbound Sales Manager Relationship Specialty Start Date End Date Juan J Hi MD [address] [place] [address] PCP - General 06/07/02 Inbound Sales Manager Relationship Specialty Start Date End Date Juan J Hi MD [address] [place] [address] PCP - General 06/07/02 Inbound Sales Manager Relationship Specialty Start Date End Date Juan J Hi MD [address] [place] [address] PCP - General 06/07/02 Inbound Sales Manager Relationship Specialty Start Date End Date Juan J Hi MD [address] [place], [place] [address] PCP - General 06/07/02 Inbound Sales Manager Relationship Specialty Start Date End Date Juan J Hi MD [address] [place] [address] PCP - General 06/07/02 Inbound Sales Manager Relationship Specialty Start Date End Date Juan J Hi MD [address] [place] [address] PCP - General 06/07/02 Inbound Sales Manager Relationship Specialty Start Date End Date Juan J Hi MD [address] [place] [address] PCP - General 06/07/02 Team Status: Inactive Member Role Status Dates Dr. Juan J Hi MD Primary Care Provider Active Dr. Vernon Scott MD Emergency Provider Active Inbound Sales Manager Relationship Specialty Start Date End Date Juan J Hi MD [address] [place] [address] PCP - General 06/07/02 Inbound Sales Manager Relationship Specialty Start Date End Date Juan J Hi MD [address] [facility] [place] [address] PCP - General 06/07/02 Inbound Sales Manager Relationship Specialty Start Date End Date Juan J Hi MD [address] [facility] [place] [address] PCP - General 06/07/02 Inbound Sales Manager Relationship Specialty Start Date End Date Juan J Hi MD [address] [place] [address] PCP - General 06/07/02 Inbound Sales Manager Relationship Specialty Start Date End Date Juan J Hi MD [address] [facility] [place] [address] PCP - General 06/07/02 Team Status: Inactive Member Role Status Dates Dr. Juan J Hi MD Primary Care Provider, Refer ring Provider Active Leah Curtis DIRECTOR HUMAN SERVICES, DIRECTOR HUMAN SERVICES-C Attending Provider Active Team Status: Inactive Member Role Status Dates Dr. Juan J Hi MD Primary Care Provider Active Leah Curtis DIRECTOR HUMAN SERVICES, DIRECTOR HUMAN SERVICES-C Attending Provider, Referring P oz Active Team Status: Inactive Member Role Status Dates Dr. Juan J Hi MD Primary Care Provider Active Dr. Vernon Scott MD Attending Provider, Emergency Provi rahul Active Inbound Sales Manager Relationship Specialty Start Date End Date Juan J Hi MD [address] [place] [address] PCP - General 06/07/02 Aiyana Garcia PA-C [address] [place] [address] Home Care Provider Neurology 11/09/23 Aiyana Garcia PA-C [address] [place] [address] Referring Neurology 11/09/23 Amber Shi, PT [address] [place] [address] Finance Attorney Post Acute Care 11/09/23 Inbound Sales Manager Relationship Specialty Start Date End Date Juan J Hi MD [address] [place] [address] PCP - General 06/07/02 Aiyana Garcia PA-C [address] [place] [address] Home Care Provider Neurology 11/09/23 Aiyana Garcia PA-C [address] [place] [address] Referring Neurology 11/09/23 Amber Shi, PT [address] [facility] [place] [address] Finance Attorney Post Acute Care 11/09/23 Inbound Sales Manager Relationship Specialty Start Date End Date Juan J Hi MD [address] [place] [address] PCP - General 06/07/02 Aiyana Garcia PA-C [address] [place] [address] Home Care Provider Neurology 11/09/23 Aiyana Garcia PA-C [address] [place] [address] Referring Neurology 11/09/23 Amber Shi, PT [address] [facility] [place] [address] Finance Attorney Post Acute Care 11/09/23 Inbound Sales Manager Relationship Specialty Start Date End Date Juan J Hi MD [address] [place] [address] PCP - General 06/07/02 Aiyana Garcia PA-C [address] [place] [address] Home Care Provider Neurology 11/09/23 Aiyana Garcia PA-C [address] [place] [address] Referring Neurology 11/09/23 Amber Shi, PT [address] [facility] [place] [address] Finance Attorney Post Acute Care 11/09/23 Inbound Sales Manager Relationship Specialty Start Date End Date Juan J Hi MD [address] [place] [address] PCP - General 06/07/02 Aiyana Garcia PA-C [address] [facility] [place] [address] Home Care Provider Neurology 11/09/23 Aiyana Garcia PA-C [address] [facility] [address] Referring Neurology 11/09/23 Amber Shi, PT [address] [place] [address] Finance Attorney Post Acute Care 11/09/23 Inbound Sales Manager Relationship Specialty Start Date End Date Juan J Hi MD [address] [place] [address] PCP - General 06/07/02 Aiyana Garcia PA-C [address] [facility] [place] [address] Home Care Provider Neurology 11/09/23 Aiyana Garcia PA-C [address] [facility] [place] [address] Referring Neurology 11/09/23 Amber Shi, PT [address] [place] [address] Finance Attorney Post Acute Care 11/09/23 Inbound Sales Manager Relationship Specialty Start Date End Date Juan J Hi MD [address] [place] [address] PCP - General 06/07/02 Aiyana Garcia PA-C [address] [facility] [place] [address] Home Care Provider Neurology 11/09/23 Aiyana Garcia PA-C [address] [facility] [place] [address] Referring Neurology 11/09/23 Amber Shi, PT [address] [place] [address] Finance Attorney Post Acute Care 11/09/23 Inbound Sales Manager Relationship Specialty Start Date End Date Juan J Hi MD [address] [place] [address] PCP - General 06/07/02 Aiyana Garcia PA-C [address] [place] [address] Home Care Provider Neurology 11/09/23 Aiyana Garcia PA-C [address] [place] [address] Referring Neurology 11/09/23 Amber Shi, PT [address] [place] [address] Finance Attorney Post Acute Care 11/09/23 Inbound Sales Manager Relationship Specialty Start Date End Date Juan J Hi MD [address] [place] [address] PCP - General 06/07/02 Aiyana Garcia PA-C [address] [facility] [place] [address] Home Care Provider Neurology 11/09/23 Aiyana Garcia PA-C [address] [place] [address] Referring Neurology 11/09/23 Amber Shi, PT [address] [place] [address] Finance Attorney Post Acute Care 11/09/23 Inbound Sales Manager Relationship Specialty Start Date End Date Juan J Hi MD [address] [place] [address] PCP - General 06/07/02 Aiyana Garcia PA-C [address] [place] [address] Home Care Provider Neurology 11/09/23 Aiyana Garcia PA-C [address] [place] [address] Referring Neurology 11/09/23 Amber Shi, PT [address] [place] [address] Finance Attorney Post Acute Care 11/09/23 Team Status: Active Member Role Status Dates Dr. Juan J Hi MD Primary Care Provider Active Dr. Martin Alvarado MD Attending Provider Active Team Status: Active Member Role Status Dates Dr. Juan J Hi MD Primary Care Provider Active Leah Curtis DIRECTOR HUMAN SERVICES, DIRECTOR HUMAN SERVICES-C Attending Provider Active Inbound Sales Manager Relationship Specialty Start Date End Date Juan J Hi MD [address] [place] [address] PCP - General 06/07/02 Aiyana Garcia PA-C [address] [facility] [place] [address] Home Care Provider Neurology 11/09/23 Aiyana Garcia PA-C [address] [facility] [place] [address] Referring Neurology 11/09/23 Amber Shi, PT [address] [place] [address] Finance Attorney Post Acute Care 11/09/23 Inbound Sales Manager Relationship Specialty Start Date End Date Juan J Hi MD [address] [place] [address] PCP - General 06/07/02 Aiyana Garcia PA-C [address] [facility] [place] [address] Home Care Provider Neurology 11/09/23 Aiyana Garcia PA-C [address] [facility] [place] [address] Referring Neurology 11/09/23 Amber Shi, PT [address] [place] [address] Finance Attorney Post Acute Care 11/09/23 Inbound Sales Manager Relationship Specialty Start Date End Date Juan J Hi MD [address] [place] [address] PCP - General 06/07/02 Aiyana Garcia PA-C [address] [place] [address] Home Care Provider Neurology 11/09/23 Aiyana Garcia PA-C [address] [place] [address] Referring Neurology 11/09/23 Amber Shi, PT [address] [place] [address] Finance Attorney Post Acute Care 11/09/23 Inbound Sales Manager Relationship Specialty Start Date End Date Juan J Hi MD [address] [place] [address] PCP - General 06/07/02 Aiyana Garcia PA-C [address] [place] [address] Home Care Provider Neurology 11/09/23 Aiyana Garcia PA-C [address] [place] [address] Referring Neurology 11/09/23 Amber Shi, PT [address] [place] [address] Finance Attorney Post Acute Care 11/09/23 Inbound Sales Manager Relationship Specialty Start Date End Date Juan J Hi MD [address] [place] [address] PCP - General 06/07/02 Aiyana Garcia PA-C [address] [place] [address] Home Care Provider Neurology 11/09/23 Aiyana Garcia PA-C [address] [facility] [place] [address] Referring Neurology 11/09/23 Inbound Sales Manager Relationship Specialty Start Date End Date Juan J Hi MD [address] [place] [address] PCP - General 06/07/02 Aiyana Garcia PA-C [address] [facility] [place] [address] Home Care Provider Neurology 11/09/23 Aiyana Garcia PA-C [address] [facility] [place] [address] Referring Neurology 11/09/23 Inbound Sales Manager Relationship Specialty Start Date End Date Juan J Hi MD [address] [place] [address] PCP - General 06/07/02 Aiyana Garcia PA-C [address] [facility] [place] [address] Home Care Provider Neurology 11/09/23 Aiyana Garcia PA-C [address] [facility] [place] [address] Referring Neurology 11/09/23 Inbound Sales Manager Relationship Specialty Start Date End Date Juan J Hi MD [address] [place] [address] PCP - General 06/07/02 Aiyana Garcia PA-C [address] [facility] [place] [address] Home Care Provider Neurology 11/09/23 Aiyana Garcia PA-C [address] [facility] [place] [address] Referring Neurology 11/09/23 Inbound Sales Manager Relationship Specialty Start Date End Date Juan J Hi MD [address] [place] [address] PCP - General 06/07/02 Aiyana Garcia PA-C [address] [facility] [place] [address] Home Care Provider Neurology 11/09/23 Aiyana Garcia PA-C [address] [facility] [place] [address] Referring Neurology 11/09/23 Inbound Sales Manager Relationship Specialty Start Date End Date Juan J Hi MD [address] [place] [address] PCP - General 06/07/02 Aiyana Garcia PA-C [address] [facility] [place] [address] Home Care Provider Neurology 11/09/23 Aiyana Garcia PA-C [address] [facility] [place] [address] Referring Neurology 11/09/23 Inbound Sales Manager Relationship Specialty Start Date End Date Juan J Hi MD [address] [place] [address] PCP - General 06/07/02 Aiyana Garcia PA-C [address] [place] [address] Home Care Provider Neurology 11/09/23 Aiyana Garcia PA-C [address] [place] [address] Referring Neurology 11/09/23 Inbound Sales Manager Relationship Specialty Start Date End Date Juan J Hi MD [address] [place] [address] PCP - General 06/07/02 Aiyana Garcia PA-C [address] [place] [address] Home Care Provider Neurology 11/09/23 Aiyana Garcia PA-C [address] [place] [address] Referring Neurology 11/09/23 Inbound Sales Manager Relationship Specialty Start Date End Date Juan J Hi MD [address] [place] [address] PCP - General 06/07/02 Inbound Sales Manager Relationship Specialty Start Date End Date Juan J Hi MD [address] [place] [address] PCP - General 06/07/02 Inbound Sales Manager Relationship Specialty Start Date End Date Juan J Hi MD [address] [place] [address] PCP - General 06/07/02 Aiyana Garcia PA-C [address] [place] [address] Home Care Provider Neurology 11/09/23 Aiyana Garcia PA-C [address] [facility] [place] [address] Referring Neurology 11/09/23 Inbound Sales Manager Relationship Specialty Start Date End Date Juan J Hi MD [address] [place] [address] PCP - General 06/07/02 Aiyana Garcia PA-C [address] [place] [place] [address] Home Care Provider Neurology 11/09/23 Aiyana Garcia PA-C [address] [place] [place] [address] Referring Neurology 11/09/23 Inbound Sales Manager Relationship Specialty Start Date End Date Juan J Hi MD [address] [place] [address] PCP - General 06/07/02 Aiyana Garcia PA-C [address] [place] [place] [address] Home Care Provider Neurology 11/09/23 Aiyana Garcia PA-C [address] [place] [address] Referring Neurology 11/09/23 Maral Alvarez, FILM MOUNTER.FLAG CAR DRIVER [address] [place] [address] Call Center Rn Internal Medicine 07/22/24 Inbound Sales Manager Relationship Specialty Start Date End Date Juan J Hi MD [address] [place] [address] PCP - General 06/07/02 Aiyana Garcia PA-C [address] [place] [address] Home Care Provider Neurology 11/09/23 Aiyana Garcia PA-C [address] [place], [place] [address] Referring Neurology 11/09/23 Maral Alvarez, MALISSA.FLAG CAR DRIVER [address] [facility] [place] [address] Call Center Rn Internal Medicine 07/22/24 INFORMATION SOURCE (unrecogn ized section and content) DATE CREATED AUTHOR 02/22/2022 [facility] DATE CREATED AUTHOR AUTHOR'S ORGANIZ ATION 05/15/2022 [facility] DATE CREATED AUTHOR AUTHOR'S ORGANIZ ATION 12/13/2024 [facility] DATE CREATED AUTHOR AUTHOR'S ORGANIZ ATION 02/22/2025 [facility] Goals (unrecognized section and content) Goals may be documented in a n alternate sectionGoals may be documented in an alternate sectionGoals may be documented in an alternate sectionGoals may be documented in an alternate sectionGoals may be documented in an alternate sectionGoals may be documented in an alternate sectionGoals may be documented in an alternate section FOR RECORDS PERTAINING TO PATIENTS WHO ARE OR HAVE BEEN ENROLLED IN A CHEMICAL DEPENDENCY/SUBSTANCEABUSE PROGRAM, SOME INFORMATION MAY BE OMITTED. This clinical summary was aggregated from multiple sources. Caution should be exercised in using it in the provision of clinical care. This summary normalizes information from multiple sources, and as a consequence, information in this document may materially change the coding, format and clinical context of patient data. In addition, data may be omitted in some cases. CLINICAL DECISIONS SHOULD BE BASED ON THE PRIMARY CLINICAL RECORDS. [facility]. provides no warranty or guarantee of the accuracy or completeness of information in this document.
--- NOTE | 2025-04-19 11:28 | CT_ITS ---
EXAM: CT Pelvis Without Intravenous Contrast CLINICAL INDICATION: BILATERAL HIP PAIN, XRAY CANNOT SEE ANYTHING TECHNIQUE: Axial computed tomography images of the pelvis without intravenous contrast. This CT exam was performed using one or more of the following dose reduction techniques: automated exposure control, adjustment of the mA and/or kV according to patient size, and/or use of iterative reconstruction technique. COMPARISON: No relevant prior studies available. FINDINGS: BOWEL: Unremarkable. No obstruction. No mucosal thickening. APPENDIX: No findings to suggest acute appendicitis. INTRAPERITONEAL SPACE: Unremarkable. No free air. No significant fluid collection. BLADDER: Unremarkable. No stones. REPRODUCTIVE: Unremarkable as visualized. BONES/JOINTS: Osteopenia. Hypertrophic osteophytes and sclerosis of the greater trochanter bilaterally, likely secondary to degenerative changes. No acute fracture. No dislocation. SOFT TISSUES: Unremarkable. VASCULATURE: Unremarkable. No lower abdominal aortic aneurysm. LYMPH NODES: Unremarkable. No enlarged lymph nodes. CT/Pelvis without IV Contrast IMPRESSION: 1. Osteopenia. 2. Hypertrophic osteophytes and sclerosis of the greater trochanter bilaterall y, likely secondary to degenerative changes. Reading Location: [id number]
[2025-04-19 12:00] VITALS: BP 149/80; PULSE 77; RESP 18; O2SAT 100
[2025-04-19 13:00] VITALS: BP 133/68; PULSE 80; RESP 20; O2SAT 99
[2025-04-19 13:28] VITALS: BP 172/65; PULSE 82; RESP 18; TEMP 36.9; O2SAT 99
--- NOTE | 2025-04-19 17:03 | ED.VIS.FALL ---
HPI HPI - Fall History of Present Illness Chief Complaint: Fall Narrative Narrative: Patient is a 84-year-old female presenting to the emergency department for a fall. Patient has a past medical history as below including dementia, alert and oriented x 2 at baseline. She lives at home with her son. Patient is not on any oral anticoagulation. She states that she walked outside on the deck and then was stepping backwards and lost her balance causing her to fall and hit the back of her head. She denies any LOC. Denies any neck pain. Does have chronic back pain and states it is slightly worse than normal. Denies any numbness or weakness in her legs. Denies any saddle anesthesia. Denies any bowel or bladder incontinence. Denies chest pain, SOB, palpitations, lightheadedness or dizziness causing her to fall. Son called EMS who brought her here. 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) Obesity Atherosclerosis of coronary artery of [place] heart without angina pectoris Essential (primary) hypertension Hyperlipidemia Home Medications ?Medication ?Instructions ?Recorded ?Last Taken ?Type aspirin 81 mg tablet,delayed 81 mg PO DAILY Heart health 04/25/18 03/24/21 History release (Adult Low Dose Aspirin) acetaminophen 500 mg tablet 1,000 mg (2 x 500 mg) PO Q6H PRN 04/16/21 Unknown Rx PRN Pain Score 1-10 #0 tabs polyethylene glycol 3350 17 17 g PO DAILY PRN constipation 07/21/21 Unknown History gram/dose oral powder (Miralax) duloxetine 30 mg capsule,delayed 30 mg PO DAILY 02/01/22 Unknown History release carvedilol 12.5 mg tablet 12.5 mg PO BID BP 08/26/22 Unknown History oxybutynin chloride 15 mg 15 mg PO DAILY 08/26/22 Unknown History tablet,extended release 24 hr nitroglycerin 0.4 mg sublingual 0.4 mg sublingual Q5-15M Heart #25 08/29/22 Unknown Rx tablet tabs donepezil 10 mg tablet 10 mg PO QDAY 04/16/24 Unknown History mirtazapine 7.5 mg tablet 7.5 mg PO QDAY 04/16/24 Unknown History carbidopa 25 mg-levodopa 100 mg 1 tab PO .qid 12/12/24 Unknown History tablet melatonin 3 mg capsule 5 mg PO HS PRN 12/12/24 Unknown History Allergy/AdvReac Type Severity Reaction Status Date / Time No Known Allergies Allergy Verified 12/12/24 15:04 Family History Mother CAD (coronary artery disease) Myocardial infarction Brother CAD (coronary artery disease) Myocardial infarction Brother Cancer Sister Heart disease Surgical History History of left heart catheterization (03/25/21) History of bilateral tubal ligation History of coronary artery stent placement (11/22/11) Social History household members: spouse and family housing: house Smoking Status: Never smoker alcohol intake: never substance use type: does not use ROS ROS ED ROS Narrative See HPI EXAM Physical Exam Narrative Exam Narrative: Vital signs: Reviewed General: Alert and oriented x 2. Disoriented to year. No acute distress HEENT: Head is normocephalic. There is a 3 cm linear laceration to the left parietal region of the scalp with pulsatile bleeding. No underlying disruption of the skull itself. No foreign body noted. Midface is stable and nontender palpation. Normal nares with no septal hematoma. Pupils 2mm bilaterally, equal round reactive. Neck: Supple without lymphadenopathy nontender. No midline cervical spinal tenderness to palpation. No step-offs or deformities. Cardiovascular: Regular rate and rhythm, no murmurs. No rubs or gallops. Normal S1 and S2 Respiratory: Clear to auscultation bilaterally. No wheezes, rales, rhonchi Chest: Chest wall is atraumatic and nontender to palpation. No crepitus or erythema or ecchymosis. Abdominal: Soft and nontender. Normal bowel sounds. No guarding or rebound. Nonsurgical abdomen Extremities: There is some very mild lower thoracic midline spinal tenderness to palpation. No step-offs or deformities. No midline lumbar spinal tenderness to palpation. no step-offs or deformities. Hips are stable and nontender to palpation. Extremities are atraumatic and nontender to palpation with normal active range of motion. Skin: No rash or redness. Neurological: Cranial nerves II through XII are grossly intact. Normal strength and sensation. Normal cerebellar function The rest of the physical exam is unremarkable Const Vital Signs: 04/19/25 10:21 04/19/25 12:00 04/19/25 13:00 Temperature 98.7 F Temperature Source Oral Pulse Rate 83 77 80 Respiratory Rate 18 18 20 H Blood Pressure 154/85 H 149/80 H 133/68 H Blood Pressure Mean 108 103 89 Pulse Ox 98 100 99 Oxygen Delivery Method Room Air Room Air Room Air 04/19/25 13:28 Temperature 98.5 F Temperature Source Pulse Rate 82 Respiratory Rate 18 Blood Pressure 172/65 H Blood Pressure Mean 100 Pulse Ox 99 Oxygen Delivery Method MDM MDM MDM Narrative Medical decision making narrative: Patient is a 84-year-old female presenting to the emergency department for fall. Patient was seen and examined. Vitals are stable. Patient resting in bed comfortably no acute distress. Patient is able to provide me a clear history of her fall. States she was walking backwards and lost her balance. I do not think there is any indication for any additional labs or EKG. Called to room by nursing given the pulsatile arterial scalp bleed. 2 [id number] stitches were placed with absorbable sutures in the scalp. Bleeding controlled after the [id number]'s were placed with 2.0 absorbable sutures. Wound was then irrigated copiously with 1 L of sterile saline. Lido with epi was injected into the wound for analgesia and 5 bernarda were placed in a linear laceration. Tetanus was updated. CT of the brain, cervical spine, thoracic and lumbar spines were ordered. Given the patient's age, I did want to obtain a pelvis x-ray however the x-ray tech states that there is a large gas bubble overlying the hips and they are unable to evaluate the pelvis. CT pelvis ordered. CT the brain shows no acute intracranial process. CT cervical spine with no acute fracture. CT thoracic with no acute fracture. There was an incidental note of scattered pulmonary nodules that were seen repeat CT in 12 months was recommended. Lumbar CT spine with a moderate superior compression deformity of the L4 vertebral body is likely chronic. She was not tender in this area. Pelvis CT with no evidence of acute fracture or dislocation. Patient ambulated without difficulty. Updated patient and son at bedside on the negative workup. Notified of the incidental pulmonary nodule findings. Given wound care instructions for laceration. patient discharged from the Emergency Department. I do not feel that the patient's evaluation reveals any acute reason for admission at this time. I instructed them to either follow-up with their primary care physician or promptly return to the Emergency Department for reevaluation should symptoms worsen or new symptoms develop. I explained what symptoms would indicate the need to return to the emergency department. Shared decision making was used. The patient voiced understanding of the treatment plan and is agreeable with it. Clinical impression Fall Head laceration Back pain History & Record Review Discussion w/independent historian: Patient and Family Radiography Diagnostic Testing: Clinical Impression(s) from Imaging Studies Brain CT 04/19/25 10:51 IMPRESSION: No acute intracranial process Reading [id number] Cervical Spine CT 04/19/25 10:51 IMPRESSION: 1. No acute fracture. 2. Degenerative changes of the cervical spine as described. Reading Location: [facility] Lumbar Spine CT 04/19/25 10:51 IMPRESSION: 1. The current study includes L2 to the coccyx. 2. If symptoms persist, further evaluation with MRI is recommended. 3. Moderate superior compression deformity of L4 vertebral body, likely chronic. 4. Degenerative changes lumbar spine as described. Reading Location: [facility] Thoracic Spine CT 04/19/25 10:51 IMPRESSION: 1. No acute fracture. 2. Lung emphysema with scattered pulmonary nodules of both lungs, measuring up to [address] in 12 months is recommended. 3. Degenerative changes thoracic spine as described. 4. If symptoms persist, further evaluation with MRI is recommended. Reading Location: [facility] Pelvis CT 04/19/25 11:28 IMPRESSION: 1. Osteopenia. 2. Hypertrophic osteophytes and sclerosis of the greater trochanter bilaterally, likely secondary to degenerative changes. Reading Location: [facility] Discharge Plan Triage Chief Complaint: Fall ED Provider: Rosana Levin Dx/Rx/DC Orders Clinical Impression: Fall, Head trauma, Laceration of head, Back pain Instructions: ED Head Injury (Adult), ED Laceration, All Closures, ED Fall Prevention Prescriptions: No Action polyethylene glycol 3350 [Miralax] 17 gram/dose powder 17 g PO DAILY PRN (Reason: constipation) duloxetine 30 mg capsule,delayed release(DR/EC) 30 mg PO DAILY carvedilol 12.5 mg tablet 12.5 mg PO BID oxybutynin chloride 15 mg tablet extended release 24hr 15 mg PO DAILY Patient Comments: TAKE 1 TABLET BY MOUTH ONCE DAILY carbidopa-levodopa 25-100 mg tablet 1 tab PO .qid Rx Instructions: extended release, dosage different donepezil 10 mg tablet 10 mg PO QDAY mirtazapine 7.5 mg tablet 7.5 mg PO QDAY melatonin 3 mg capsule 5 mg PO HS PRN acetaminophen 500 mg Tablet 1,000 mg PO Q6H PRN PRN (Reason: Pain Score 1-10) Qty: 0 0RF aspirin [Adult Low Dose Aspirin] 81 mg tablet,delayed release (DR/EC) 81 mg PO DAILY nitroglycerin 0.4 mg tablet, sublingual 0.4 mg SUBLINGUAL Q5-15M Qty: 25 3RF Primary Care Provider: Juan J Hi Referrals: Juan J Hi MD [Primary Care Provider] - 2 Days Activity Restrictions/Additional Instructions: You need to follow-up in 1 week to have the bernarda removed. Follow-up with your primary care doctor soon as possible. Your evaluation in the Emergency Department did not reveal any acute reason for admission. However, I want to emphasize that you may be early in the course of a disease process or illness even if it is not present. For this reason you should follow-up within 24 hours for reevaluation with either your primary care physician or if necessary back here in the Emergency Department. You should return to the Emergency Department immediately if your symptoms worsen or new symptoms develop. Incidental CT findings as below please follow-up on these for repeat CT scan in 12 months. Lung emphysema with scattered pulmonary nodules of both lungs, measuring up to [address] in 12 months is recommended. Print Language: Yakut Disposition Disposition: Home, Self Care Discharge Date/Time: 04/19/25 13:50
== END 2025-04-19 13:50 | disposition home or self-care (01) ==
PROVIDERS: Emergency Provider Student in an Organized Health Care Education/Training Program; PCP Internal Medicine; Visit Provider Student in an Organized Health Care Education/Training Program
DX: S01.01XA Laceration without foreign body of scalp, initial encounter (principal); F03.90 Unspecified dementia, unspecified severity, without behavioral disturbance, psychotic disturbance, mood disturbance, and anxiety; M54.9 Dorsalgia, unspecified; G89.29 Other chronic pain; W01.0XXA Fall on same level from slipping, tripping and stumbling without subsequent striking against object, initial encounter; R91.8 Other nonspecific abnormal finding of lung field; I10 Essential (primary) hypertension; I25.2 Old myocardial infarction; E78.5 Hyperlipidemia, unspecified; E66.9 Obesity, unspecified; I25.10 Atherosclerotic heart disease of native coronary artery without angina pectoris; Z23 Encounter for immunization; Z95.2 Presence of prosthetic heart valve; Z79.82 Long term (current) use of aspirin; Z79.899 Other long term (current) drug therapy
CPT/HCPCS: 12002; 70450; 72125; 72128; 72131; 72192; 90471; 90715; 96372; 99284; A4216